=== PATIENT | male | born 1960 | race Caucasian/White ===

== ENCOUNTER 2017-09-12 21:35 | Inpatient (IN) | payer OTHER ==
[2017-09-12] MEDS ORDERED: NALOXONE 0.4 MG/ML 1 ML VIAL IV PRN (22:02)
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
[2017-09-12] MEDS: SODIUM CHLORIDE 0.9% 1,000 ML IV SCH (22:21)
[2017-09-12 22:44] LABS: Albumin 2.7 g/dL (3.5-5.0); Phosphorus 6.6 mg/dL (2.5-4.5); Potassium 5.3 mmol/L (3.5-5.1); Total Bilirubin 0.3 mg/dL (0.2-1.3); Total Protein 5.2 g/dL (6.3-8.2)
[2017-09-12 22:49] LABS: INR 1.1 (<1.2); Prothrombin Time 10.7 sec (9.0-12.0)
[2017-09-12 22:51] LABS: Basophils % (A) 0 %; Eosinophils % (A) 0 %; HCT 31.6 % (39.0-53.0); HGB 10.3 gm/dL (13.0-17.5); Lymphocytes # (A) 0.7 k/uL (1.0-4.8); Lymphocytes % (A) 3 %; MCH 28.4 pg (25.0-35.0); MCHC 32.5 g/dL (31.0-37.0); MCV 87.2 fL (80.0-100.0); Mean Platelet Volume 6.7; Monocytes % (A) 4 %; Neutrophils # (A) 20.5 k/uL (1.3-7.7); Neutrophils % (A) 91 %; Platelet Count 530 k/uL (150-450); RBC 3.62 m/uL (4.30-5.90); RDW 14.2 % (11.5-15.5); WBC 22.4 k/uL (3.8-10.6)
[2017-09-12] MEDS ORDERED: MAG HYDROX/AL HYDROX/SIMETH 30 ML CUP PO STA (22:59)
[2017-09-12 23:49] LABS: Glucose,Whole Blood 264 mg/dL (75-99)
[2017-09-13 03:36] LABS: Glucose,Whole Blood 246 mg/dL (75-99)
[2017-09-13] MEDS ORDERED: traMADol 50 MG TAB PO STA ×2 (04:11→20:01)
[2017-09-13 04:27] LABS: Albumin 2.4 g/dL (3.5-5.0); Calcium 7.6 mg/dL (8.4-10.2); Phosphorus 6.5 mg/dL (2.5-4.5); Potassium 4.7 mmol/L (3.5-5.1); Total Bilirubin 0.1 mg/dL (0.2-1.3); Total Protein 4.8 g/dL (6.3-8.2)
[2017-09-13 04:28] LABS: Basophils % (A) 0 %; Eosinophils % (A) 0 %; HCT 29.3 % (39.0-53.0); HGB 9.5 gm/dL (13.0-17.5); Lymphocytes # (A) 0.7 k/uL (1.0-4.8); Lymphocytes % (A) 4 %; MCHC 32.3 g/dL (31.0-37.0); MCV 86.7 fL (80.0-100.0); Mean Platelet Volume 7.1; Monocytes # (A) 0.8 k/uL (0-1.0); Monocytes % (A) 5 %; Neutrophils # (A) 14.9 k/uL (1.3-7.7); Neutrophils % (A) 90 %; Platelet Count 519 k/uL (150-450); RBC 3.37 m/uL (4.30-5.90); RDW 13.9 % (11.5-15.5); WBC 16.5 k/uL (3.8-10.6)
[2017-09-13] MEDS: INSULIN ASPART 100 UNIT/ML 1 ML 10 ML VIAL SQ SCH ×4 (04:48→21:36)
[2017-09-13] MEDS: LIDOCAINE 5% PATCH TOPICAL SCH (04:53)
[2017-09-13] MEDS: SODIUM CHLORIDE 0.9% 1,000 ML IV SCH (06:32)
--- NOTE | 2017-09-13 09:41 | US ---
EXAMINATION TYPE: US renals and bladder DATE OF EXAM: 09/13/2017 COMPARISON: NONE CLINICAL HISTORY: Elevated BUN/creatinine. Renal failure EXAM MEASUREMENTS: Right Kidney: 10.7 x 5.1 x 5.3 cm Left Kidney: 11.7 x 5.2 x 5.3 cm Right Kidney: no hydronephrosis or masses seen Left Kidney: no hydronephrosis or masses seen Bladder: wnl Bilateral Jets seen: no There is no evidence for hydronephrosis at this point in time. No nephrolithiasis is seen. No jhui s are identified. The urinary bladder is anechoic. Bilateral ureteral jets are not seen. IMPRESSION: No hydronephrosis is evident bilaterally.
[2017-09-13] MEDS ORDERED: FUROSEMIDE 10 MG/ML 10 ML VIAL IV STA (09:48)
--- NOTE | 2017-09-13 09:49 | P.NPCON ---
History of Present Illness - Reason for Consult acute renal failure - History of Present Illness Reason for consultation: Acute kidney injury History of present illness: Patient is a 57-year-old male seen in renal consultation for acute kidney injury. Unclear as to what his baseline renal function is. Patient has not seen a physician in over 10 years. The only medication he takes at home his insulin and states he's been a diabetic since the age of 38. Patient presented to Dr. lino [facility] with generalized weakness. Patient states he's been having an upper respiratory infection with a nonproductive cough for quite some time now. His oral intake for the last week has been quite poor. His urine output also decreased. He denies hematuria or dysuria. He does admit to taking 1600 mg of Motrin daily for the last 2 days. He denies taking diuretics. His creatinine was 8.4 on admission and is 8.5 today. He is currently maintained on normal saline at 75 mL an hour. He denies any prior history of kidney disease. Renal ultrasound reveals normal sized kidneys without any evidence of hydronephrosis. Urine output overnight was 250. Patient works in the [employer] and states he's been working and very humid weather conditions. Vital signs are stable. General: The patient appeared well nourished and normally developed. HEENT: Head exam is unremarkable. Neck is without jugular venous distension. LUNGS: Lungs are clear to auscultation and percussion. Breath sounds decreased. HEART: Rate and Rhythm are regular. First and second heart sounds normal. No murmurs, rubs or gallops. ABDOMEN: Abdominal exam reveals normal bowel sounds. Non-tender and non- distended. No evidence of peritonitis. EXTREMITITES: No clubbing, cyanosis, or edema. Past Medical History Past Medical History: Diabetes Mellitus, Renal Disease History of Any Multi-Drug Resistant Organisms: None Reported Past Surgical History: No Surgical Hx Reported Past Psychological History: No Psychological Hx Reported Smoking Status: Former smoker Past Alcohol Use History: None Reported Past Drug Use History: None Reported Medications and Allergies Home Medications Medication Instructions Recorded Confirmed Type Insulin NPH/Reg Insulin 70/30 See Protocol SQ AC-TID 09/12/17 09/12/17 History [humuLIN 70/30 VIAL] Allergies Allergy/AdvReac Type Severity Reaction Status Date / Time No Known Allergies Allergy Verified 09/12/17 21:55 Physical Exam Vitals: Vital Signs Temp Pulse Resp BP Pulse Ox 09/13/17 04:00 20 09/13/17 00:00 20 09/12/17 22:57 100 20 142/77 99 09/12/17 21:37 98.8 F 110 H 22 157/88 98 Intake and Output 09/12/17 09/13/17 09/13/17 22:59 06:59 14:59 Intake Total 525 Balance 525 Intake: Intake, IV Titration 525 Amount Sodium Chloride 0.9% 1, 525 000 ml @ 75 mls/hr IV . [id number] [facility] Rx#:[id number] Other: Voiding Method Urinal Weight 77.111 kg 78.2 kg Results - Lab Results Most recent lab results Calcium 7.6 mg/dL (8.4-10.2) L 09/13/17 03:55 Phosphorus 6.5 mg/dL (2.5-4.5) H 09/13/17 03:55 Magnesium 2.0 mg/dL (1.6-2.3) 09/13/17 03:55 09/13/17 03:55 09/13/17 03:55 Assessment and Plan Plan: Assessment: 1. Acute kidney injury secondary to ATN secondary to nonsteroidals and intravascular volume depletion. Creatinine 8.4 on admission and is 8.5 today. Unknown baseline creatinine. Renal ultrasound benign. 2. Insulin-dependent diabetes mellitus. 3. Mild hyperkalemia secondary to acute kidney injury and metabolic acidosis. Hyperglycemia contributive factor as well. Improved. 4. Metabolic acidosis secondary to acute kidney injury. 5. Hyperphosphatemia secondary to acute kidney injury. 6. Anemia. Rule out iron deficiency. Plan: Maintain normal saline at 75 mL an hour. Check urinalysis. Add PhosLo 1 tablet 3 times daily with meals. Add oral sodium bicarbonate 1300 mg twice daily. Check iron studies. Avoid nephrotoxic agents and hypotensive episodes. Lasix 80 mg IV once today. Strict I's and os. Follow-up echocardiogram cells. If no improvement in renal function in the next 24-48 hours, we'll need to initiate renal replacement therapy. Thank you for the consultation. I will continue to follow the patient with you during his hospital stay.
--- NOTE | 2017-09-13 10:00 | ECHOF ---
Referral Reason:new heart failure MEASUREMENTS -------- HEIGHT: 170.2 cm WEIGHT: 78.0 kg BP: 142/77 IVSd: 1.5 cm (0.6 - 1.1) LVIDd: 4.0 cm (3.9 - 5.3) LVPWd: 1.5 cm (0.6 - 1.1) IVSs: 1.9 cm LVIDs: 2.0 cm LVPWs: 1.9 cm LAESV Index (A-L): 36.10 ml/m Ao Diam: 3.0 cm (2.0 - 3.7) AV Cusp: 1.9 cm (1.5 - 2.6) LA Diam: 3.8 cm (2.7 - 3.8) MV EXCURSION: 11.453 mm (> 18.000) MV EF SLOPE: 93 mm/s (70 - 150) EPSS: 0.8 cm MV E Mychal: 1.51 m/s MV DecT: 170 ms MV A Mychal: 0.47 m/s MV E/A Ratio: 3.22 RAP: 5.00 mmHg RVSP: 54.93 mmHg FINDINGS -------- Sinus rhythm. This was a technically good study. The left ventricular size is normal. There is moderate concentric left ventricular hypertrophy. O verall left ventricular systolic function is low-normal with, an EF between 50 - 55 %. The right ventricle is normal in size and function. LA is moderately dilated 34-39 ml/m2 The right atrium is normal in size. Aortic valve is trileaflet and is mildly thickened. The mitral valve leaflets are mildly thickened. [id number] mitral regurgitation is present. Mild tricuspid regurgitation present. There is moderate pulmonary hypertension. The right ventric ular systolic pressure, as measured by Doppler, is 54.93mmHg. Pulmonic valve appears structurally normal. The aortic root size is normal. Normal inferior vena cava with normal inspiratory collapse consistent with estimated right atrial pre ssure of 5 mmHg. The pericardium is normal. CONCLUSIONS -------- 1. Sinus rhythm. 2. This was a technically good study. 3. The left ventricular size is normal. 4. There is moderate concentric left ventricular hypertrophy. 5. Overall left ventricular systolic function is low-normal with, an EF between 50 - 55 %. 6. The right ventricle is normal in size and function. 7. LA is moderately dilated 34-39 ml/m2 8. The right atrium is normal in size. 9. Aortic valve is trileaflet and is mildly thickened. 10. The mitral valve leaflets are mildly thickened. 11. Noer-lo-fphdggjg mitral regurgitation is present. 12. Mild tricuspid regurgitation present. 13. There is moderate pulmonary hypertension. 14. The right ventricular systolic pressure, as measured by Doppler, is 54.93mmHg. 15. Pulmonic valve appears structurally normal. 16. The aortic root size is normal. 17. Normal inferior vena cava with normal inspiratory collapse consistent with estimated right atrial pressure of 5 mmHg. 18. The pericardium is normal. SENIOR QUALITY ANALYST: Louise Toledo RDCS
[2017-09-13 11:29] LABS: Glucose,Whole Blood 113 mg/dL (75-99)
[2017-09-13] MEDS: CALCIUM ACETATE 667 MG CAP PO SCH ×2 (11:53→16:42)
[2017-09-13] MEDS: SODIUM BICARBONATE TAB 650 MG TAB PO SCH ×2 (11:53→20:11)
[2017-09-13] MEDS: ACETAMINOPHEN TAB 325 MG TAB PO PRN ×2 (12:28→18:59)
--- NOTE | 2017-09-13 14:35 | P.HPIM ---
History of Present Illness 57-year-old gentleman came with comments of generalized weakness tiredness nonproductive cough has been going on for about a week much worse last couple days. Urinating for last 2 days. Patient is found to have highly elevated BUN and creatinine because of which patient was transferred from [facility] to here patient is creatinine is around 8 I do not have any previous labs available. Patient is diabetic noncomplainer diet recommendations. Patient does work in hot sun exposed to heat doesn't take any diuretics. Initially he was told patient has heart failure although patient is not on any clinical signs or symptoms of heart failure patient had an echo cardiac exam which showed normal ejection fraction patient doesn't have any elevated JVD. No valvular abnormalities. Patient had highly elevated BNP which is a nonspecific test the other significant complaints patient had are epigastric abdominal discomfort and burning sensation due to gastritis, he believes. Patient has minimally elevated troponin without any significant EKG changes secondary to renal failure. Because of which I'm not starting him on heparin. I do not have any imaging available at this time but the chest x-ray from outside hospital was read as right lower lobe pneumonia patient does have crackles on lung exam denied any fever does have leukocytosis patient will be continued on Rocephin until we get a repeat chest x-ray here untill I can look at the images. Patient is also company of shortness of breath which can be explained by uremia. Review of Systems REVIEW OF SYSTEMS: CONSTITUTIONAL: As mentioned in HPI HEENT: No recent visual problems or hearing problems. Denied any sore throat. CARDIOVASCULAR: No chest pain, orthopnea, PND, no palpitations, no syncope. PULMONARY: no hemoptysis. GASTROINTESTINAL: No diarrhea, no nausea, no vomiting, . Normoactive bowel sounds. NEUROLOGICAL: No headaches, no weakness, no numbness. HEMATOLOGICAL: Denies any bleeding or petechiae. GENITOURINARY: Denies any burning micturition, frequency, or urgency. MUSCULOSKELETAL/RHEUMATOLOGICAL: Denies any joint pain, swelling, or any muscle pain. ENDOCRINE: Denies any polyuria or polydipsia. The rest of the 14-point review of systems is negative. Past Medical History Past Medical History: Diabetes Mellitus, Renal Disease History of Any Multi-Drug Resistant Organisms: None Reported Past Surgical History: No Surgical Hx Reported Past Psychological History: No Psychological Hx Reported Smoking Status: Former smoker Past Alcohol Use History: None Reported Past Drug Use History: None Reported Medications and Allergies Home Medications Medication Instructions Recorded Confirmed Type Insulin NPH/Reg Insulin 70/30 See Protocol SQ AC-TID 09/12/17 09/12/17 History [humuLIN 70/30 VIAL] Allergies Allergy/AdvReac Type Severity Reaction Status Date / Time No Known Allergies Allergy Verified 09/12/17 21:55 Physical Exam Vitals: Vital Signs Temp Pulse Pulse Resp BP BP Pulse Ox 09/13/17 12:00 92 18 147/72 99 09/13/17 08:00 97.1 F L 85 18 126/73 99 09/13/17 04:00 20 09/13/17 00:00 20 09/12/17 22:57 100 20 142/77 99 09/12/17 21:37 98.8 F 110 H 22 157/88 98 Intake and Output 09/12/17 09/13/17 09/13/17 22:59 06:59 14:59 Intake Total 525 Output Total 200 Balance 525 -200 Intake: Intake, IV Titration 525 Amount Sodium Chloride 0.9% 1, 525 000 ml @ 75 mls/hr IV . [id number] [facility] Rx#:[id number] Output: Urine 200 Other: Voiding Method Urinal Urinal # Voids 1 Weight 77.111 kg 78.2 kg PHYSICAL EXAMINATION: GENERAL: The patient is alert and oriented x3, not in any acute distress. Well developed, well nourished. HEENT: Pupils are round and equally reacting to light. EOMI. No scleral icterus. No conjunctival pallor. Normocephalic, atraumatic. No pharyngeal erythema. No thyromegaly. CARDIOVASCULAR: S1 and S2 present. No murmurs, rubs, or gallops. PULMONARY: Good air entry into bilateral lung calles minimal right lower lobe crackles are appreciated ABDOMEN: Soft, nontender, nondistended, normoactive bowel sounds. No palpable organomegaly. MUSCULOSKELETAL: No joint swelling or deformity. EXTREMITIES: No cyanosis, clubbing, or pedal edema. NEUROLOGICAL: Gross neurological examination did not reveal any focal deficits. SKIN: No rashes. Results CBC & Chem 7: 09/13/17 03:55 09/13/17 03:55 Labs: Abnormal Lab Results - Last 24 Hours (Table) 09/12/17 09/12/17 09/12/17 Range/Units 21:54 21:54 21:54 WBC 22.4 H (3.8-10.6) k/uL RBC 3.62 L (4.30-5.90) m/uL Hgb 10.3 L (13.0-17.5) gm/dL Hct 31.6 L (39.0-53.0) % Plt Count 530 H (150-450) k/uL Neutrophils # 20.5 H (1.3-7.7) k/uL Lymphocytes # 0.7 L (1.0-4.8) k/uL Sodium 135 L (137-145) mmol/L Potassium 5.3 H (3.5-5.1) mmol/L Carbon Dioxide 17 L (22-30) mmol/L BUN 79 H (9-20) mg/dL Creatinine 8.41 H* (0.66-1.25) mg/dL Glucose 245 H (74-99) mg/dL POC Glucose (mg/dL) (75-99) mg/dL Calcium 8.0 L (8.4-10.2) mg/dL Phosphorus 6.6 H (2.5-4.5) mg/dL Total Bilirubin (0.2-1.3) mg/dL AST (17-59) U/L Troponin I 0.062 H* (0.000-0.034) ng/mL Total Protein 5.2 L (6.3-8.2) g/dL Albumin 2.7 L (3.5-5.0) g/dL 09/12/17 09/13/17 09/13/17 Range/Units 23:48 03:34 03:55 WBC 16.5 H (3.8-10.6) k/uL RBC 3.37 L (4.30-5.90) m/uL Hgb 9.5 L (13.0-17.5) gm/dL Hct 29.3 L (39.0-53.0) % Plt Count 519 H (150-450) k/uL Neutrophils # 14.9 H (1.3-7.7) k/uL Lymphocytes # 0.7 L (1.0-4.8) k/uL Sodium (137-145) mmol/L Potassium (3.5-5.1) mmol/L Carbon Dioxide (22-30) mmol/L BUN (9-20) mg/dL Creatinine (0.66-1.25) mg/dL Glucose (74-99) mg/dL POC Glucose (mg/dL) 264 H 246 H (75-99) mg/dL Calcium (8.4-10.2) mg/dL Phosphorus (2.5-4.5) mg/dL Total Bilirubin (0.2-1.3) mg/dL AST (17-59) U/L Troponin I (0.000-0.034) ng/mL Total Protein (6.3-8.2) g/dL Albumin (3.5-5.0) g/dL 09/13/17 09/13/17 09/13/17 Range/Units 03:55 03:55 10:48 WBC (3.8-10.6) k/uL RBC (4.30-5.90) m/uL Hgb (13.0-17.5) gm/dL Hct (39.0-53.0) % Plt Count (150-450) k/uL Neutrophils # (1.3-7.7) k/uL Lymphocytes # (1.0-4.8) k/uL Sodium 134 L (137-145) mmol/L Potassium (3.5-5.1) mmol/L Carbon Dioxide 17 L (22-30) mmol/L BUN 78 H (9-20) mg/dL Creatinine 8.50 H* (0.66-1.25) mg/dL Glucose 248 H (74-99) mg/dL POC Glucose (mg/dL) (75-99) mg/dL Calcium 7.6 L (8.4-10.2) mg/dL Phosphorus 6.5 H (2.5-4.5) mg/dL Total Bilirubin 0.1 L (0.2-1.3) mg/dL AST 15 L (17-59) U/L Troponin I 0.060 H* 0.059 H* (0.000-0.034) ng/mL Total Protein 4.8 L (6.3-8.2) g/dL Albumin 2.4 L (3.5-5.0) g/dL 09/13/17 Range/Units 11:27 WBC (3.8-10.6) k/uL RBC (4.30-5.90) m/uL Hgb (13.0-17.5) gm/dL Hct (39.0-53.0) % Plt Count (150-450) k/uL Neutrophils # (1.3-7.7) k/uL Lymphocytes # (1.0-4.8) k/uL Sodium (137-145) mmol/L Potassium (3.5-5.1) mmol/L Carbon Dioxide (22-30) mmol/L BUN (9-20) mg/dL Creatinine (0.66-1.25) mg/dL Glucose (74-99) mg/dL POC Glucose (mg/dL) 113 H (75-99) mg/dL Calcium (8.4-10.2) mg/dL Phosphorus (2.5-4.5) mg/dL Total Bilirubin (0.2-1.3) mg/dL AST (17-59) U/L Troponin I (0.000-0.034) ng/mL Total Protein (6.3-8.2) g/dL Albumin (3.5-5.0) g/dL Assessment and Plan Plan: -Renal failure mostly acute renal failure chronic kidney disease cannot be ruled out. Patient most probably has multifactorial renal failure secondary to nonoliguric acute tubular necrosis secondary to nonsteroidal anti-inflammatory is with intravascular volume depletion and prerenal azotemia. Chronic kidney disease cannot be completely ruled out ultrasound of the kidneys essentially within normal limits. Patient was started on oral sodium bicarbonate IV fluids will recheck kidney function tomorrow. Echocardiogram showed normal ejection fraction. -Elevated troponins minimal elevation secondary to renal failure. -Metabolic acidosis anion gap secondary to uremia -Nausea epigastric abdominal discomfort can be secondary to uremia or gastritis patient was started on Pepcid 9 anemia: We'll obtain serum ferritin levels to rule out iron deficiency. -Type 2 diabetes mellitus: Will use sliding scale insulin for now-noncompliance with dietary and medication conditions
--- NOTE | 2017-09-13 15:22 | XR ---
EXAMINATION TYPE: XR chest 2V DATE OF EXAM: 09/13/2017 COMPARISON: Outside chest x-ray from yesterday. HISTORY: Abnormal chest x-ray, rule out pneumonia. TECHNIQUE: Frontal and lateral views of the chest are obtained. FINDINGS: The cardiac silhouette size is stable and upper limits of normal. There is persistent smal l to tiny left pleural effusion. There is persistent right basilar opacity felt to reflect infiltrate and/or atelectasis with possible small right pleural effusion is more prominent from prior study wit h increased consolidation opacification involving superior aspect right lower lobe best appreciated o n lateral view . There is silhouetting of right hemidiaphragm redemonstrated. Upper lungs remain adama r without pneumothorax. The osseous structures are intact. IMPRESSION: Worsening right basilar opacity likely reflects worsening infiltrate. Stable small to ti ny left pleural effusion. No new infiltrate is evident.
[2017-09-13 16:33] LABS: Iron Saturation 7.91 (15.00-50.00)
[2017-09-13] MEDS: FAMOTIDINE 20 MG TAB PO SCH (16:42)
[2017-09-13] MEDS: cefTRIAXone IN SWFI 1,000 MG/10 ML SYRINGE IVP SCH (16:42)
[2017-09-13 16:53] LABS: Glucose,Whole Blood 216 mg/dL (75-99)
[2017-09-13 21:31] LABS: Glucose,Whole Blood 131 mg/dL (75-99)
[2017-09-13 22:00] LABS: Appearance,Urine Cloudy (Clear); Bilirubin,Urine Negative (Negative); Blood,Urine Small (Negative); Budding Yeast,Urine Occasional /hpf; Color,Urine Light Yellow; Glucose,Urine (UA) 2+ (Negative); Ketones,Urine Negative (Negative); Leukocyte Esterase,Urine Negative (Negative); Mucus,Urine Rare /hpf; Nitrite,Urine Negative (Negative); Protein,Urine 3+ (Negative); RBC,Urine 1 /hpf (0-5); Squamous Epithelial Cell,Urine <1 /hpf (0-4); Urobilinogen,Urine <2.0 mg/dL (<2.0); WBC,Urine 10 /hpf (0-5)
--- NOTE | 2017-09-14 00:39 | CONS ---
CONSULTATION DATE OF SERVICE: 09/13/2017 Reason for the consultation is abnormal cardiac enzymes. HISTORY OF PRESENT ILLNESS: This is a pleasant 57-year-old gentleman who is diabetic for the last 20 years, was transferred from [facility] to [facility] after he was diagnosed with acute renal failure of unknown etiology at this point. The patient symptoms started about a week ago. Before a week, he was in his usual state of health. About a week ago, he started experiencing symptoms of feeling tired, fatigued, has no energy. Beside that, he started experiencing symptoms of exertional dyspnea, as well as orthopnea. No paroxysmal nocturnal dyspnea. Beside that, he was experiencing some symptoms of chest pain and chest discomfort described as a tightness across the chest. No radiation to the neck or arm or shoulders. No dizziness or lightheadedness and no syncope. No change in his weight. As a matter of fact according to him and his , his appetite has been very low lately and he was only drinking water, but not eating well. At [facility], the patient was found to have severely elevated creatinine and it was about 8 and we do not have any baseline creatinine on him before. The patient was diagnosed with acute renal failure and he was transferred to [facility]. The chest x-ray showed findings consistent with possible new pneumonia. The WBC was 16.5. The hemoglobin was 9.5. Sodium was 134. Potassium was 4.7. Creatinine was 8.50. Glucose was 248. Troponin was 0.060 and 0.059. There is no EKG available at this point of time and will obtain 12-lead EKG. The patient was seen and evaluated by the orientation and mobility instructor and the plan at this point to treat the patient conservatively and challenge him with diuretics, but if he did not respond he might need to have dialysis. PAST MEDICAL HISTORY: Diabetes. No documented history of hypertension or dyslipidemia. SOCIAL HISTORY: The patient does not smoke or drink alcohol. FAMILY HISTORY: Not relevant for premature coronary artery disease in first-degree relatives. CURRENT MEDICATIONS: 1. Acetaminophen 650 mg q.6 hours p.r.n. 2. Ceftriaxone 1000 IV daily. 3. Pepcid 20 mg daily. 4. Insulin. 5. Sodium bicarb 13 mg p.o. b.i.d. 6. Lidocaine patch topical daily. PHYSICAL EXAMINATION: GENERAL APPEARANCE: The patient does not look in any pain or distress. Vitals showed a temp of 98.8, heart rate 94, respiratory rate 18, blood pressure is 147/72 mmHg, saturation 99% on nasal cannula 2 L. Cardiovascular examination shows regular rate and rhythm with normal S1 and S2. Respiratory examination showed diminished breathing sounds in both bases of the lung. EXTREMITY EXAMINATION: No pedal edema was noted. DIAGNOSTIC WORKUP: The blood work was described above. The chest x-ray was also described above next. The EKG is in process to be performed. ASSESSMENT: 1. Acute renal failure. The etiology is unknown at this point. 2. Mildly abnormal cardiac enzymes in the absence of any active chest pain or chest discomfort. PLAN: 1. The abnormal cardiac enzymes is likely secondary to the acute renal failure. Severe underlying coronary artery disease needs to be ruled out probably as an outpatient with a stress test once the creatinine normalized or come to baseline. 2. At this point, we will consider a conservative medical approach, which includes aspirin, as well as beta margarita. 3. Will obtain an echocardiogram with Doppler to evaluate the left ventricular systolic function. 4. The patient does not seems to be in overt congestive heart failure at this point. 5. We will continue following up with him. Thank you for allowing us to participate in his care. MMODL / IJN: [id number] /
[2017-09-14] MEDS: SODIUM CHLORIDE 0.9% 1,000 ML IV SCH ×3 (01:51→17:35)
[2017-09-14 06:56] LABS: Glucose,Whole Blood 91 mg/dL (75-99)
[2017-09-14] MEDS: INSULIN ASPART 100 UNIT/ML 1 ML 10 ML VIAL SQ SCH ×4 (07:40→21:35)
[2017-09-14] MEDS: SODIUM BICARBONATE TAB 650 MG TAB PO SCH ×2 (07:58→21:44)
[2017-09-14] MEDS: CALCIUM ACETATE 667 MG CAP PO SCH ×3 (08:00→17:35)
[2017-09-14] MEDS: FAMOTIDINE 20 MG TAB PO SCH (08:01)
[2017-09-14] MEDS: LIDOCAINE 5% PATCH TOPICAL SCH (08:01)
[2017-09-14] MEDS: cefTRIAXone IN SWFI 1,000 MG/10 ML SYRINGE IVP SCH (08:05)
[2017-09-14 08:26] LABS: Albumin 2.4 g/dL (3.5-5.0); Calcium 7.5 mg/dL (8.4-10.2); Magnesium 2.2 mg/dL (1.6-2.3); Potassium 5.2 mmol/L (3.5-5.1); Total Bilirubin 0.2 mg/dL (0.2-1.3); Total Protein 4.8 g/dL (6.3-8.2)
[2017-09-14 10:05] LABS: HCT 29.1 % (39.0-53.0); HGB 9.4 gm/dL (13.0-17.5); Hypochromasia Slight; MCH 28.9 pg (25.0-35.0); MCHC 32.4 g/dL (31.0-37.0); MCV 89.3 fL (80.0-100.0); Mean Platelet Volume 7.8; Platelet Count 553 k/uL (150-450); RBC 3.26 m/uL (4.30-5.90); RDW 14.4 % (11.5-15.5)
--- NOTE | 2017-09-14 10:25 | P.PN ---
Subjective 57-year-old pleasant female admitted for the acute renal failure creatinine remains stable patient appears to have right lower lobe pneumonia repeat chest x -ray did show clear-cut infiltrate patient will remain on ceftriaxone for now and be is to have her come in today quite pneumonia. I will increase fluid rate 1 25 mL per hour patient is A getting oral bicarbonate. Patient is feeling much better today. Constitutional: Denied any fatigue denied any fever. Cardio vascular: denied any chest pain, palpitations Gastrointestinal denied any nausea vomiting Pulmonary: Denied any shortness of breath cough Neurologic denied any new focal deficits Objective - Vital Signs Vital signs: Vital Signs Temp 98.2 F 09/14/17 06:25 Pulse 94 09/14/17 06:25 Resp 16 09/14/17 06:25 BP 173/86 09/14/17 06:25 Pulse Ox 93 L 09/14/17 06:25 Intake & Output 09/13/17 09/14/17 09/14/17 18:59 06:59 18:59 Intake Total 240 1940 Output Total 200 375 Balance 40 1565 Intake: Intake, IV Titration 1700 Amount Sodium Chloride 0.9% 1, 1700 000 ml @ 75 mls/hr IV . [id number] [facility] Rx#:[id number] Oral 240 240 Output: Urine 200 375 Other: Voiding Method Urinal Toilet # Voids 1 1 - Exam PHYSICAL EXAMINATION: GENERAL: The patient is alert and oriented x3, not in any acute distress. Well developed, well nourished. HEENT: Pupils are round and equally reacting to light. EOMI. No scleral icterus. No conjunctival pallor. Normocephalic, atraumatic. No pharyngeal erythema. No thyromegaly. CARDIOVASCULAR: S1 and S2 present. No murmurs, rubs, or gallops. PULMONARY: Good air entry into bilateral lung calles minimal right lower lobe crackles are appreciated ABDOMEN: Soft, nontender, nondistended, normoactive bowel sounds. No palpable organomegaly. MUSCULOSKELETAL: No joint swelling or deformity. EXTREMITIES: No cyanosis, clubbing, or pedal edema. NEUROLOGICAL: Gross neurological examination did not reveal any focal deficits. SKIN: No rashes. - Labs CBC & Chem 7: 09/14/17 07:31 09/14/17 07:31 Labs: Abnormal Lab Results - Last 24 Hours (Table) 0709/13/17 09/13/17 Range/Units 21:54 10:48 10:48 WBC (3.8-10.6) k/uL RBC (4.30-5.90) m/uL Hgb (13.0-17.5) gm/dL Hct (39.0-53.0) % Plt Count (150-450) k/uL Potassium (3.5-5.1) mmol/L Carbon Dioxide (22-30) mmol/L BUN (9-20) mg/dL Creatinine (0.66-1.25) mg/dL POC Glucose (mg/dL) (75-99) mg/dL Hemoglobin A1c 7.0 H (4.0-6.0) % Calcium (8.4-10.2) mg/dL Iron 11 L (65-175) ug/dL TIBC 139 L (228-460) ug/dL Iron Saturation 7.91 L (15.00-50.00) Ferritin 935.0 H (22.0-322.0) ng/mL Alkaline Phosphatase (38-126) U/L Troponin I 0.059 H* (0.000-0.034) ng/mL Total Protein (6.3-8.2) g/dL Albumin (3.5-5.0) g/dL Urine Protein (Negative) Urine Glucose (UA) (Negative) Urine Blood (Negative) Urine WBC (0-5) /hpf Urine Mucus (None) /hpf Urine Yeast (Budding) (None) /hpf 09/13/17 09/13/17 09/13/17 Range/Units 11:27 16:51 21:30 WBC (3.8-10.6) k/uL RBC (4.30-5.90) m/uL Hgb (13.0-17.5) gm/dL Hct (39.0-53.0) % Plt Count (150-450) k/uL Potassium (3.5-5.1) mmol/L Carbon Dioxide (22-30) mmol/L BUN (9-20) mg/dL Creatinine (0.66-1.25) mg/dL POC Glucose (mg/dL) 113 H 216 H 131 H (75-99) mg/dL Hemoglobin A1c (4.0-6.0) % Calcium (8.4-10.2) mg/dL Iron (65-175) ug/dL TIBC (228-460) ug/dL Iron Saturation (15.00-50.00) Ferritin (22.0-322.0) ng/mL Alkaline Phosphatase (38-126) U/L Troponin I (0.000-0.034) ng/mL Total Protein (6.3-8.2) g/dL Albumin (3.5-5.0) g/dL Urine Protein (Negative) Urine Glucose (UA) (Negative) Urine Blood (Negative) Urine WBC (0-5) /hpf Urine Mucus (None) /hpf Urine Yeast (Budding) (None) /hpf 09/13/17 09/14/17 09/14/17 Range/Units 21:40 07:31 07:31 WBC 17.0 H (3.8-10.6) k/uL RBC 3.26 L (4.30-5.90) m/uL Hgb 9.4 L (13.0-17.5) gm/dL Hct 29.1 L (39.0-53.0) % Plt Count 553 H (150-450) k/uL Potassium 5.2 H (3.5-5.1) mmol/L Carbon Dioxide 18 L (22-30) mmol/L BUN 90 H* (9-20) mg/dL Creatinine 8.33 H* (0.66-1.25) mg/dL POC Glucose (mg/dL) (75-99) mg/dL Hemoglobin A1c (4.0-6.0) % Calcium 7.5 L (8.4-10.2) mg/dL Iron (65-175) ug/dL TIBC (228-460) ug/dL Iron Saturation (15.00-50.00) Ferritin (22.0-322.0) ng/mL Alkaline Phosphatase 181 H (38-126) U/L Troponin I (0.000-0.034) ng/mL Total Protein 4.8 L (6.3-8.2) g/dL Albumin 2.4 L (3.5-5.0) g/dL Urine Protein 3+ H (Negative) Urine Glucose (UA) 2+ H (Negative) Urine Blood Small H (Negative) Urine WBC 10 H (0-5) /hpf Urine Mucus Rare H (None) /hpf Urine Yeast (Budding) Occasional H (None) /hpf Assessment and Plan Plan: -Renal failure mostly acute renal failure chronic kidney disease cannot be ruled out. Patient most probably has multifactorial renal failure secondary to nonoliguric acute tubular necrosis secondary to nonsteroidal anti-inflammatory is with intravascular volume depletion and prerenal azotemia. Chronic kidney disease cannot be completely ruled out ultrasound of the kidneys essentially within normal limits. Patient was started on oral sodium bicarbonate IV fluids will recheck kidney function tomorrow. Echocardiogram showed normal ejection fraction. -Come in today quite pneumonia right lower lobe: Patient is on Rocephin at this time which will be continued and patient is feeling much better today -Elevated troponins minimal elevation secondary to renal failure. -Metabolic acidosis anion gap secondary to uremia -Nausea epigastric abdominal discomfort can be secondary to uremia or gastritis patient was started on Pepcid 9 anemia: Probably anemia of chronic kidney disease ferritin is actually high -Type 2 diabetes mellitus: Will use sliding scale insulin for now-noncompliance with dietary and medication conditions
--- NOTE | 2017-09-14 10:53 | P.PN ---
Subjective Patient is seen in follow-up for acute kidney injury. Unknown baseline renal function as he hasn't seen a physician in over 10 years. No improvement in renal function with creatinine 8.3 today. Overall the patient's feeling better. Denies nausea or vomiting. Admits to good urine output. Vital signs are stable. General: The patient appeared well nourished and normally developed. HEENT: Head exam is unremarkable. Neck is without jugular venous distension. LUNGS: Lungs are clear to auscultation and percussion. Breath sounds decreased. HEART: Rate and Rhythm are regular. First and second heart sounds normal. No murmurs, rubs or gallops. ABDOMEN: Abdominal exam reveals normal bowel sounds. Non-tender and non- distended. No evidence of peritonitis. EXTREMITITES: No clubbing, cyanosis, or edema. Objective - Vital Signs Vital signs: Vital Signs Temp 98.2 F 09/14/17 06:25 Pulse 94 09/14/17 06:25 Resp 16 09/14/17 06:25 BP 173/86 09/14/17 06:25 Pulse Ox 93 L 09/14/17 06:25 Intake & Output 09/13/17 09/14/17 09/14/17 18:59 06:59 18:59 Intake Total 240 1940 Output Total 200 375 Balance 40 1565 Intake: Intake, IV Titration 1700 Amount Sodium Chloride 0.9% 1, 1700 000 ml @ 75 mls/hr IV . [id number] [facility] Rx#:[id number] Oral 240 240 Output: Urine 200 375 Other: Voiding Method Urinal Toilet # Voids 1 1 - Labs CBC & Chem 7: 09/14/17 07:31 09/14/17 07:31 Labs: Abnormal Lab Results - Last 24 Hours (Table) 09/12/17 09/13/17 09/13/17 Range/Units 21:54 10:48 10:48 WBC (3.8-10.6) k/uL RBC (4.30-5.90) m/uL Hgb (13.0-17.5) gm/dL Hct (39.0-53.0) % Plt Count (150-450) k/uL Potassium (3.5-5.1) mmol/L Carbon Dioxide (22-30) mmol/L BUN (9-20) mg/dL Creatinine (0.66-1.25) mg/dL POC Glucose (mg/dL) (75-99) mg/dL Hemoglobin A1c 7.0 H (4.0-6.0) % Calcium (8.4-10.2) mg/dL Iron 11 L (65-175) ug/dL TIBC 139 L (228-460) ug/dL Iron Saturation 7.91 L (15.00-50.00) Ferritin 935.0 H (22.0-322.0) ng/mL Alkaline Phosphatase (38-126) U/L Troponin I 0.059 H* (0.000-0.034) ng/mL Total Protein (6.3-8.2) g/dL Albumin (3.5-5.0) g/dL Urine Protein (Negative) Urine Glucose (UA) (Negative) Urine Blood (Negative) Urine WBC (0-5) /hpf Urine Mucus (None) /hpf Urine Yeast (Budding) (None) /hpf 09/13/17 09/13/17 09/13/17 Range/Units 11:27 16:51 21:30 WBC (3.8-10.6) k/uL RBC (4.30-5.90) m/uL Hgb (13.0-17.5) gm/dL Hct (39.0-53.0) % Plt Count (150-450) k/uL Potassium (3.5-5.1) mmol/L Carbon Dioxide (22-30) mmol/L BUN (9-20) mg/dL Creatinine (0.66-1.25) mg/dL POC Glucose (mg/dL) 113 H 216 H 131 H (75-99) mg/dL Hemoglobin A1c (4.0-6.0) % Calcium (8.4-10.2) mg/dL Iron (65-175) ug/dL TIBC (228-460) ug/dL Iron Saturation (15.00-50.00) Ferritin (22.0-322.0) ng/mL Alkaline Phosphatase (38-126) U/L Troponin I (0.000-0.034) ng/mL Total Protein (6.3-8.2) g/dL Albumin (3.5-5.0) g/dL Urine Protein (Negative) Urine Glucose (UA) (Negative) Urine Blood (Negative) Urine WBC (0-5) /hpf Urine Mucus (None) /hpf Urine Yeast (Budding) (None) /hpf 09/13/17 09/14/17 09/14/17 Range/Units 21:40 07:31 07:31 WBC 17.0 H (3.8-10.6) k/uL RBC 3.26 L (4.30-5.90) m/uL Hgb 9.4 L (13.0-17.5) gm/dL Hct 29.1 L (39.0-53.0) % Plt Count 553 H (150-450) k/uL Potassium 5.2 H (3.5-5.1) mmol/L Carbon Dioxide 18 L (22-30) mmol/L BUN 90 H* (9-20) mg/dL Creatinine 8.33 H* (0.66-1.25) mg/dL POC Glucose (mg/dL) (75-99) mg/dL Hemoglobin A1c (4.0-6.0) % Calcium 7.5 L (8.4-10.2) mg/dL Iron (65-175) ug/dL TIBC (228-460) ug/dL Iron Saturation (15.00-50.00) Ferritin (22.0-322.0) ng/mL Alkaline Phosphatase 181 H (38-126) U/L Troponin I (0.000-0.034) ng/mL Total Protein 4.8 L (6.3-8.2) g/dL Albumin 2.4 L (3.5-5.0) g/dL Urine Protein 3+ H (Negative) Urine Glucose (UA) 2+ H (Negative) Urine Blood Small H (Negative) Urine WBC 10 H (0-5) /hpf Urine Mucus Rare H (None) /hpf Urine Yeast (Budding) Occasional H (None) /hpf Assessment and Plan Plan: Assessment: 1. Acute kidney injury secondary to ATN secondary to nonsteroidals and intravascular volume depletion. No improvement in renal function with creatinine staying above 8. Unknown baseline creatinine. Renal ultrasound benign. Urinalysis does reveal proteinuria which is likely secondary to underlying diabetes. Rule out GN. 2. Insulin-dependent diabetes mellitus. 3. Mild hyperkalemia secondary to acute kidney injury and metabolic acidosis. Hyperglycemia contributive factor as well. 4. Metabolic acidosis secondary to acute kidney injury maintained on oral sodium bicarbonate. 5. Hyperphosphatemia secondary to acute kidney injury. Maintained on PhosLo. 6. Anemia. Iron deficiency noted. Plan: Maintain normal saline at 125 mL an hour. Quantify proteinuria. Check serologies. Further set 125 mg IV daily for 3 days. First dose today. Avoid nephrotoxic agents and hypotensive episodes. Strict I's and os. If no improvement in renal function in the next 24-48 hours, will need to initiate renal replacement therapy. Will also require a kidney biopsy to assess the chronicity of his underlying kidney disease and for a definitive diagnosis.
[2017-09-14 11:26] LABS: Glucose,Whole Blood 111 mg/dL (75-99)
[2017-09-14] MEDS: SODIUM FERRIC GLUCONAT-SUCROSE 125 MG in SODIUM CHLORIDE 0.9% 100 ML IVPB SCH (11:26)
[2017-09-14] MEDS: ONDANSETRON 4 MG/2 ML VIAL IVP PRN ×2 (16:05→21:43)
[2017-09-14 16:23] LABS: Anti-DNA, DS unit <1.0 IU/mL; DNA Double-Stranded NEGATIVE (NEGATIVE)
[2017-09-14 16:38] LABS: Glucose,Whole Blood 113 mg/dL (75-99)
[2017-09-14 16:54] LABS: Protein, Total 4.9 g/dL (6.2-8.2)
[2017-09-14 20:09] LABS: Glucose,Whole Blood 111 mg/dL (75-99)
[2017-09-14] MEDS: traMADol 50 MG TAB PO PRN (21:43)
[2017-09-15] MEDS: SODIUM CHLORIDE 0.9% 1,000 ML IV SCH ×3 (05:23→17:24)
[2017-09-15 07:02] LABS: HCT 27.5 % (39.0-53.0); HGB 8.9 gm/dL (13.0-17.5); Hypochromasia Slight; MCH 28.6 pg (25.0-35.0); MCHC 32.4 g/dL (31.0-37.0); MCV 88.4 fL (80.0-100.0); Mean Platelet Volume 6.8; Platelet Count 583 k/uL (150-450); RBC 3.11 m/uL (4.30-5.90); RDW 14.3 % (11.5-15.5); WBC 14.7 k/uL (3.8-10.6)
[2017-09-15 07:23] LABS: Glucose,Whole Blood 85 mg/dL (75-99)
[2017-09-15 07:24] LABS: Calcium 7.9 mg/dL (8.4-10.2); Potassium 4.7 mmol/L (3.5-5.1)
[2017-09-15] MEDS: SODIUM BICARBONATE TAB 650 MG TAB PO SCH ×3 (08:23→21:32)
[2017-09-15] MEDS: FAMOTIDINE 20 MG TAB PO SCH (08:23)
[2017-09-15] MEDS: CALCIUM ACETATE 667 MG CAP PO SCH ×3 (08:23→17:22)
[2017-09-15] MEDS: LIDOCAINE 5% PATCH TOPICAL SCH (08:25)
[2017-09-15] MEDS: traMADol 50 MG TAB PO PRN (08:25)
[2017-09-15] MEDS: INSULIN ASPART 100 UNIT/ML 1 ML 10 ML VIAL SQ SCH ×4 (08:26→21:29)
[2017-09-15] MEDS: cefTRIAXone IN SWFI 1,000 MG/10 ML SYRINGE IVP SCH (08:26)
[2017-09-15] MEDS: SODIUM FERRIC GLUCONAT-SUCROSE 125 MG in SODIUM CHLORIDE 0.9% 100 ML IVPB SCH (09:56)
--- NOTE | 2017-09-15 10:05 | P.PN ---
Subjective 57-year-old pleasant female admitted for the acute renal failure creatinine remains stable patient appears to have right lower lobe pneumonia repeat chest x -ray did show clear-cut infiltrate patient will remain on ceftriaxone for now and be is to have her come in today quite pneumonia. I will increase fluid rate 1 25 mL per hour patient is A getting oral bicarbonate. Patient is feeling much better today. 09/15/2017 Patient is IV fluids will be decreased to surfaces per hour unfortunately there is no improvement in his a serum creatinine and BMP and actually worsened which is probably contributing to his acid reflux symptoms as patient's symptoms is quite concerning although switch his Pepcid to Protonix. I'm avoiding proton pump inhibitor because the poor renal function until now. Constitutional: Denied any fatigue denied any fever. Cardio vascular: denied any chest pain, palpitations Gastrointestinal denied any nausea vomiting Pulmonary: Denied any shortness of breath cough Neurologic denied any new focal deficits Objective - Vital Signs Vital signs: Vital Signs Temp 98.3 F 09/15/17 05:19 Pulse 89 09/15/17 05:19 Resp 16 09/15/17 05:19 BP 179/84 09/15/17 05:19 Pulse Ox 96 09/15/17 07:33 Intake & Output 09/14/17 09/15/17 09/15/17 18:59 06:59 18:59 Intake Total 950 1490 Output Total 700 250 Balance 250 1240 Intake: Intake, IV Titration 950 1250 Amount Sodium Chloride 0.9% 1, 625 1250 000 ml @ 125 mls/hr IV . Q8H [facility] Rx#:[id number] Sodium Chloride 0.9% 1, 225 000 ml @ 75 mls/hr IV . [id number] [facility] Rx#:[id number] Sodium Ferric Gluconat- 100 Sucrose 125 mg In Sodium Chloride 0.9% 100 ml @ 100 mls/hr IVPB DAILY [facility] Rx#:[id number] Oral 240 Output: Urine 700 250 Other: Voiding Method Toilet Toilet Urinal Urinal # Voids 4 # Bowel Movements 1 - Exam PHYSICAL EXAMINATION: GENERAL: The patient is alert and oriented x3, not in any acute distress. Well developed, well nourished. HEENT: Pupils are round and equally reacting to light. EOMI. No scleral icterus. No conjunctival pallor. Normocephalic, atraumatic. No pharyngeal erythema. No thyromegaly. CARDIOVASCULAR: S1 and S2 present. No murmurs, rubs, or gallops. PULMONARY: Good air entry into bilateral lung calles minimal right lower lobe crackles are appreciated ABDOMEN: Soft, nontender, nondistended, normoactive bowel sounds. No palpable organomegaly. MUSCULOSKELETAL: No joint swelling or deformity. EXTREMITIES: No cyanosis, clubbing, or pedal edema. NEUROLOGICAL: Gross neurological examination did not reveal any focal deficits. SKIN: No rashes. - Labs CBC & Chem 7: 09/15/17 06:35 09/15/17 06:35 Labs: Abnormal Lab Results - Last 24 Hours (Table) 09/14/17 09/14/17 09/14/17 Range/Units 07:31 07:31 11:25 WBC 17.0 H (3.8-10.6) k/uL RBC 3.26 L (4.30-5.90) m/uL Hgb 9.4 L (13.0-17.5) gm/dL Hct 29.1 L (39.0-53.0) % Plt Count 553 H (150-450) k/uL Sodium (137-145) mmol/L Carbon Dioxide (22-30) mmol/L BUN (9-20) mg/dL Creatinine (0.66-1.25) mg/dL POC Glucose (mg/dL) 111 H (75-99) mg/dL Calcium (8.4-10.2) mg/dL Total Protein (PEP) 4.9 L (6.2-8.2) g/dL 09/14/17 09/14/17 09/15/17 Range/Units 16:37 20:09 06:35 WBC 14.7 H (3.8-10.6) k/uL RBC 3.11 L (4.30-5.90) m/uL Hgb 8.9 L (13.0-17.5) gm/dL Hct 27.5 L (39.0-53.0) % Plt Count 583 H (150-450) k/uL Sodium (137-145) mmol/L Carbon Dioxide (22-30) mmol/L BUN (9-20) mg/dL Creatinine (0.66-1.25) mg/dL POC Glucose (mg/dL) 113 H 111 H (75-99) mg/dL Calcium (8.4-10.2) mg/dL Total Protein (PEP) (6.2-8.2) g/dL 09/15/17 Range/Units 06:35 WBC (3.8-10.6) k/uL RBC (4.30-5.90) m/uL Hgb (13.0-17.5) gm/dL Hct (39.0-53.0) % Plt Count (150-450) k/uL Sodium 136 L (137-145) mmol/L Carbon Dioxide 16 L (22-30) mmol/L BUN 91 H* (9-20) mg/dL Creatinine 8.49 H* (0.66-1.25) mg/dL POC Glucose (mg/dL) (75-99) mg/dL Calcium 7.9 L (8.4-10.2) mg/dL Total Protein (PEP) (6.2-8.2) g/dL Assessment and Plan Plan: -Renal failure mostly acute renal failure chronic kidney disease cannot be ruled out. Patient most probably has multifactorial renal failure secondary to nonoliguric acute tubular necrosis secondary to nonsteroidal anti-inflammatory is with intravascular volume depletion and prerenal azotemia. Chronic kidney disease cannot be completely ruled out ultrasound of the kidneys essentially within normal limits. Patient was started on oral sodium bicarbonate IV fluids will recheck kidney function tomorrow. Echocardiogram showed normal ejection fraction. Patient's kidney function did not improve -Community-acquired pneumonia right lower lobe: Patient is on Rocephin -Elevated troponins minimal elevation secondary to renal failure. -Metabolic acidosis anion gap secondary to uremia -Nausea epigastric abdominal discomfort can be secondary to uremia or gastritis patient was started on Pepcid 9 anemia: Probably anemia of chronic kidney disease ferritin is actually high -Type 2 diabetes mellitus: Will use sliding scale insulin for now-noncompliance with dietary and medication conditions
[2017-09-15 12:08] LABS: Glucose,Whole Blood 143 mg/dL (75-99)
[2017-09-15] MEDS: PANTOPRAZOLE 40 MG/10 ML VIAL IVP SCH (13:05)
--- NOTE | 2017-09-15 14:09 | P.PN ---
Subjective Patient is seen in follow-up for acute kidney injury. Unknown baseline renal function as he hasn't seen a physician in over 10 years. No improvement in renal function with creatinine 8.49 today. Overall the patient's feels fine. Denies nausea or vomiting. Admits to good urine output. Vital signs are stable. General: The patient appeared well nourished and normally developed. HEENT: Head exam is unremarkable. Neck is without jugular venous distension. LUNGS: Lungs are clear to auscultation and percussion. Breath sounds decreased. HEART: Rate and Rhythm are regular. First and second heart sounds normal. No murmurs, rubs or gallops. ABDOMEN: Abdominal exam reveals normal bowel sounds. Non-tender and non- distended. No evidence of peritonitis. EXTREMITITES: No clubbing, cyanosis, or edema. Objective - Vital Signs Vital signs: Vital Signs Temp 98.3 F 09/15/17 05:19 Pulse 89 09/15/17 05:19 Resp 16 09/15/17 05:19 BP 179/84 09/15/17 05:19 Pulse Ox 96 09/15/17 07:33 Intake & Output 09/14/17 09/15/17 09/15/17 18:59 06:59 18:59 Intake Total 950 1490 Output Total 700 250 Balance 250 1240 Intake: Intake, IV Titration 950 1250 Amount Sodium Chloride 0.9% 1, 625 1250 000 ml @ 125 mls/hr IV . Q8H [facility] Rx#:[id number] Sodium Chloride 0.9% 1, 225 000 ml @ 75 mls/hr IV . [id number] [facility] Rx#:[id number] Sodium Ferric Gluconat- 100 Sucrose 125 mg In Sodium Chloride 0.9% 100 ml @ 100 mls/hr IVPB DAILY [facility] Rx#:[id number] Oral 240 Output: Urine 700 250 Other: Voiding Method Toilet Toilet Urinal Urinal # Voids 4 # Bowel Movements 1 - Labs CBC & Chem 7: 09/15/17 06:35 09/15/17 06:35 Labs: Abnormal Lab Results - Last 24 Hours (Table) 09/14/17 09/14/17 09/14/17 Range/Units 07:31 16:37 20:09 WBC (3.8-10.6) k/uL RBC (4.30-5.90) m/uL Hgb (13.0-17.5) gm/dL Hct (39.0-53.0) % Plt Count (150-450) k/uL Sodium (137-145) mmol/L Carbon Dioxide (22-30) mmol/L BUN (9-20) mg/dL Creatinine (0.66-1.25) mg/dL POC Glucose (mg/dL) 113 H 111 H (75-99) mg/dL Calcium (8.4-10.2) mg/dL Total Protein (PEP) 4.9 L (6.2-8.2) g/dL 09/15/17 09/15/17 09/15/17 Range/Units 06:35 06:35 12:06 WBC 14.7 H (3.8-10.6) k/uL RBC 3.11 L (4.30-5.90) m/uL Hgb 8.9 L (13.0-17.5) gm/dL Hct 27.5 L (39.0-53.0) % Plt Count 583 H (150-450) k/uL Sodium 136 L (137-145) mmol/L Carbon Dioxide 16 L (22-30) mmol/L BUN 91 H* (9-20) mg/dL Creatinine 8.49 H* (0.66-1.25) mg/dL POC Glucose (mg/dL) 143 H (75-99) mg/dL Calcium 7.9 L (8.4-10.2) mg/dL Total Protein (PEP) (6.2-8.2) g/dL Assessment and Plan Plan: Assessment: 1. Acute kidney injury secondary to ATN secondary to nonsteroidals and intravascular volume depletion. No improvement in renal function with creatinine staying above 8. Unknown baseline creatinine. Renal ultrasound benign. Urinalysis does reveal proteinuria which is likely secondary to underlying diabetes. Rule out GN. 2. Insulin-dependent diabetes mellitus. 3. Mild hyperkalemia secondary to acute kidney injury and metabolic acidosis. Hyperglycemia contributive factor as well. Improved. 4. Metabolic acidosis secondary to acute kidney injury maintained on oral sodium bicarbonate. 5. Hyperphosphatemia secondary to acute kidney injury. Maintained on PhosLo. 6. Anemia. Iron deficiency noted. Plan: I will decrease rate of normal saline to 50 mL an hour. Quantify proteinuria. Follow-up serologies. Further set 125 mg IV daily for 3 days. Second dose today. Avoid nephrotoxic agents and hypotensive episodes. Consult vascular surgery for dialysis catheter placement. First treatment of hemodialysis tomorrow. Will also schedule for kidney biopsy to assess the chronicity of his underlying kidney disease and for a definitive diagnosis.
[2017-09-15] MEDS ORDERED: DARBEPOETIN ALFA 40 MCG/0.4 ML SYRINGE SQ SCH (15:00)
[2017-09-15 17:05] LABS: Glucose,Whole Blood 100 mg/dL (75-99)
[2017-09-15] MEDS: ACETAMINOPHEN TAB 325 MG TAB PO PRN (17:31)
[2017-09-15 20:04] LABS: Glucose,Whole Blood 128 mg/dL (75-99)
[2017-09-16] MEDS ORDERED: IPRATROPIUM-ALBUTEROL 3 ML NEB INHALATION STA (00:35)
[2017-09-16] MEDS: guaiFENesin SYRUP 100MG/5ML 200 MG/10 ML CUP PO PRN ×4 (05:33→23:12)
[2017-09-16 07:03] LABS: Glucose,Whole Blood 116 mg/dL (75-99)
[2017-09-16] MEDS: INSULIN ASPART 100 UNIT/ML 1 ML 10 ML VIAL SQ SCH ×4 (08:00→21:09)
[2017-09-16] MEDS: PANTOPRAZOLE 40 MG/10 ML VIAL IVP SCH (08:00)
[2017-09-16] MEDS: cefTRIAXone IN SWFI 1,000 MG/10 ML SYRINGE IVP SCH (08:15)
[2017-09-16] MEDS: LIDOCAINE 5% PATCH TOPICAL SCH (08:15)
[2017-09-16 08:29] LABS: Calcium 8.5 mg/dL (8.4-10.2); Potassium 4.8 mmol/L (3.5-5.1)
[2017-09-16] MEDS ORDERED: IV FLUID CONTINUATION 1,000 ML IV ONE (08:30)
[2017-09-16] MEDS: fentaNYL (PF) 50 MCG/ML 2 ML AMP IV ONE ×2 (08:38→09:09)
[2017-09-16] MEDS: MIDAZOLAM 2 MG/2 ML VIAL IV ONE ×2 (08:38→09:09)
[2017-09-16] MEDS ORDERED: LIDOCAINE 1% INJ 10MG/ML (20 ML MDV) SQ ONE (08:43)
[2017-09-16] MEDS ORDERED: hydrALAZINE HCL 20 MG/ML 1 ML VIAL IV ONE (08:54)
--- NOTE | 2017-09-16 08:57 | CONS ---
DATE OF CONSULTATION: 09/16/2017 This is a 57-year-old gentleman who was seen in consultation for placement of urgent dialysis catheter. His creatinine is high and the patient needs dialysis catheter. The patient has not seen a physician for last 10 years. He has history of diabetes since age 38 and has been on insulin. He also has a history of upper respiratory infection for the last 2 years. His creatinine is 8.5 today. MEDICAL HISTORY: History of diabetes mellitus, renal disease. PAST SURGICAL HISTORY: No surgical history reported. PERSONAL HISTORY: Nonsmoker. PHYSICAL EXAMINATION: Patient was seen. His vital signs stable. NECK: Supple. No bruit appreciated. CHEST: Clear. ABDOMEN: Soft. Vascular examination: Brachial radial and femoral pulses are present. IMPRESSION: 1. Acute kidney injury secondary to acute tubular necrosis secondary to nonsteroids and intravascular volume depletion. 2. Insulin-dependent diabetes mellitus. 3. Metabolic acidosis. 4. Anemia. PLAN: Placement of the dialysis catheter. Risks and complications discussed, bleeding , infection, thrombosis. MMODL / IJN: [id number] / MTDElla
--- NOTE | 2017-09-16 10:03 | PCN ---
PROCEDURE NOTE PREOPERATIVE DIAGNOSIS: Acute and chronic renal failure. PROCEDURE: Ultrasound-guided 23 cm dialysis catheter right internal jugular approach under local and IV sedation. Conscious sedation time is 40 minutes. The patient was brought to the sawyer cork slabs. Right side of the neck and chest was prepped and draped usual standard manner. Under local and IV sedation, ultrasound-guided micropuncture into the right jugular vein. Micropuncture guide was passed and 4-Andorran dilator was advanced off the guidewire. After that, a tunnel was created. Through the tunnel we brought 23 cm dialysis catheter. Then we passed a regular guidewire. On the top of the guidewire, we placed the dilator and sheath. Through the sheath we introduced the dialysis catheter. Tip of the catheter in superior vena cava and atrium. Flushed with heparin and saline and hep-locked. Incision was closed with Vicryl and skin was closed with nylon. Dressing applied. The patient is tolerated the procedure well and transferred to recovery room in satisfactory condition. MMODL / IJN: [id number] /
--- NOTE | 2017-09-16 10:34 | XR ---
EXAMINATION TYPE: XR chest 1V portable DATE OF EXAM: 09/16/2017 HISTORY: s/p dialysis catheter insertion. REFERENCE: Previous study dated 09/13/2017. FINDINGS: A large-bore, double-lumen catheter is been placed via a right internal jugular approach. I ts tip appears to be within the right atrium. There is worsening opacity of the right hemithorax. This may be due to a combination of fluid and ate lectasis. The right hemidiaphragm is elevated. The left lung is clear. Heart size is obscured. IMPRESSION: 1. SATISFACTORY CATHETER PLACEMENT. 2. WORSENING OPACITY OF THE RIGHT HEMITHORAX.
--- NOTE | 2017-09-16 11:04 | P.PN ---
Subjective 57-year-old pleasant female admitted for the acute renal failure creatinine remains stable patient appears to have right lower lobe pneumonia repeat chest x -ray did show clear-cut infiltrate patient will remain on ceftriaxone for now and be is to have her come in today quite pneumonia. I will increase fluid rate 1 25 mL per hour patient is A getting oral bicarbonate. Patient is feeling much better today. 09/15/2017 Patient is IV fluids will be decreased to surfaces per hour unfortunately there is no improvement in his a serum creatinine and BMP and actually worsened which is probably contributing to his acid reflux symptoms as patient's symptoms is quite concerning although switch his Pepcid to Protonix. I'm avoiding proton pump inhibitor because the poor renal function until now. 09/16/2017 Patient appears to be tired fatigued, received a central line for hemodialysis. Constitutional: denied any fever. Cardio vascular: denied any chest pain, palpitations Gastrointestinal denied any nausea vomiting Pulmonary: Denied any shortness of breath cough Neurologic denied any new focal deficits Objective - Vital Signs Vital signs: Vital Signs Temp 98.2 F 09/16/17 10:44 Pulse 96 09/16/17 08:21 Resp 20 09/16/17 10:44 BP 188/90 09/16/17 10:44 Pulse Ox 96 09/16/17 10:44 Intake & Output 09/15/17 09/16/17 09/16/17 18:59 06:59 18:59 Intake Total 1200 100 Balance 1200 100 Intake: IV 100 Intake, IV Titration 600 Amount Sodium Chloride 0.9% 1, 500 000 ml @ 50 mls/hr IV . Q20H BARBARA Rx#:[id number] Sodium Ferric Gluconat- 100 Sucrose 125 mg In Sodium Chloride 0.9% 100 ml @ 100 mls/hr IVPB DAILY BARABRA Rx#:[id number] Oral 600 Other: Voiding Method Toilet Toilet Urinal Urinal # Voids 5 2 - Exam PHYSICAL EXAMINATION: GENERAL: The patient is alert and oriented x3, not in any acute distress. Well developed, well nourished. HEENT: Pupils are round and equally reacting to light. EOMI. No scleral icterus. No conjunctival pallor. Normocephalic, atraumatic. No pharyngeal erythema. No thyromegaly. CARDIOVASCULAR: S1 and S2 present. No murmurs, rubs, or gallops. PULMONARY: Good air entry into bilateral lung calles minimal right lower lobe crackles are appreciated ABDOMEN: Soft, nontender, nondistended, normoactive bowel sounds. No palpable organomegaly. MUSCULOSKELETAL: No joint swelling or deformity. EXTREMITIES: No cyanosis, clubbing, or pedal edema. NEUROLOGICAL: Gross neurological examination did not reveal any focal deficits. SKIN: No rashes. - Labs CBC & Chem 7: 09/15/17 06:35 09/16/17 06:59 Labs: Abnormal Lab Results - Last 24 Hours (Table) 09/15/17 09/15/17 09/15/17 Range/Units 12:06 14:44 17:04 Carbon Dioxide (22-30) mmol/L BUN (9-20) mg/dL Creatinine (0.66-1.25) mg/dL Glucose (74-99) mg/dL POC Glucose (mg/dL) 143 H 100 H (75-99) mg/dL U Random Total Protein >600 H (<12) mg/dL 09/15/17 09/16/17 09/16/17 Range/Units 20:02 06:59 07:01 Carbon Dioxide 16 L (22-30) mmol/L BUN 94 H* (9-20) mg/dL Creatinine 8.86 H* (0.66-1.25) mg/dL Glucose 115 H (74-99) mg/dL POC Glucose (mg/dL) 128 H 116 H (75-99) mg/dL U Random Total Protein (<12) mg/dL Assessment and Plan Plan: -Renal failure mostly acute renal failure chronic kidney disease cannot be ruled out. Patient most probably has multifactorial renal failure secondary to nonoliguric acute tubular necrosis secondary to nonsteroidal anti-inflammatory is with intravascular volume depletion and prerenal azotemia. Chronic kidney disease cannot be completely ruled out ultrasound of the kidneys essentially within normal limits. Patient was started on oral sodium bicarbonate IV fluids will recheck kidney function tomorrow. Echocardiogram showed normal ejection fraction. Patient's kidney function did not improve -Community-acquired pneumonia right lower lobe: Patient is on Rocephin -Elevated troponins minimal elevation secondary to renal failure. -Metabolic acidosis anion gap secondary to uremia -Nausea epigastric abdominal discomfort can be secondary to uremia or gastritis patient was started on Pepcid 9 anemia: Probably anemia of chronic kidney disease ferritin is actually high -Type 2 diabetes mellitus: Will use sliding scale insulin for now-noncompliance with dietary and medication conditions
[2017-09-16 11:41] LABS: Glucose,Whole Blood 122 mg/dL (75-99)
[2017-09-16] MEDS: SODIUM FERRIC GLUCONAT-SUCROSE 125 MG in SODIUM CHLORIDE 0.9% 100 ML IVPB SCH (13:43)
[2017-09-16] MEDS: SODIUM BICARBONATE TAB 650 MG TAB PO SCH ×3 (13:44→21:09)
[2017-09-16] MEDS: CALCIUM ACETATE 667 MG CAP PO SCH ×3 (13:45→17:51)
[2017-09-16 16:22] LABS: Glucose,Whole Blood 190 mg/dL (75-99)
[2017-09-16] MEDS: hydrALAZINE HCL 50 MG TAB PO PRN (17:48)
[2017-09-16 18:31] LABS: Hepatitis B Core IgM Non-Reactive (Non-Reactive); Hepatitis B Surface AB- Quant 3.5 mIU/mL
[2017-09-16 20:03] LABS: Glucose,Whole Blood 193 mg/dL (75-99)
[2017-09-16] MEDS: METOPROLOL TARTRATE 50 MG TAB PO PRN (21:08)
[2017-09-16] MEDS: traMADol 50 MG TAB PO PRN (23:53)
[2017-09-17] MEDS: guaiFENesin SYRUP 100MG/5ML 200 MG/10 ML CUP PO PRN ×2 (04:30→16:09)
[2017-09-17] MEDS: ACETAMINOPHEN TAB 325 MG TAB PO PRN (05:11)
[2017-09-17 07:12] LABS: Glucose,Whole Blood 149 mg/dL (75-99)
[2017-09-17 07:58] LABS: Basophils # (A) 0.1 k/uL (0-0.2); Basophils % (A) 0 %; Eosinophils # (A) 0.2 k/uL (0-0.7); Eosinophils % (A) 1 %; HCT 25.8 % (39.0-53.0); HGB 8.2 gm/dL (13.0-17.5); Lymphocytes # (A) 0.7 k/uL (1.0-4.8); Lymphocytes % (A) 5 %; MCH 27.3 pg (25.0-35.0); MCHC 31.7 g/dL (31.0-37.0); MCV 86.3 fL (80.0-100.0); Monocytes # (A) 1.1 k/uL (0-1.0); Monocytes % (A) 7 %; Neutrophils # (A) 12.5 k/uL (1.3-7.7); Neutrophils % (A) 85 %; Platelet Count 515 k/uL (150-450); RBC 2.99 m/uL (4.30-5.90); RDW 14.3 % (11.5-15.5); WBC 14.8 k/uL (3.8-10.6)
[2017-09-17 08:17] LABS: Calcium 7.9 mg/dL (8.4-10.2); Potassium 4.1 mmol/L (3.5-5.1)
[2017-09-17] MEDS: cefTRIAXone IN SWFI 1,000 MG/10 ML SYRINGE IVP SCH (08:26)
[2017-09-17] MEDS: CALCIUM ACETATE 667 MG CAP PO SCH ×3 (08:26→16:07)
[2017-09-17] MEDS: PANTOPRAZOLE 40 MG/10 ML VIAL IVP SCH (08:27)
[2017-09-17] MEDS: LIDOCAINE 5% PATCH TOPICAL SCH (08:27)
[2017-09-17] MEDS: INSULIN ASPART 100 UNIT/ML 1 ML 10 ML VIAL SQ SCH ×4 (08:28→20:31)
[2017-09-17] MEDS: SODIUM CHLORIDE 0.9% 1,000 ML IV SCH ×3 (08:29→16:05)
[2017-09-17] MEDS: SODIUM BICARBONATE TAB 650 MG TAB PO SCH ×3 (08:29→21:45)
[2017-09-17] MEDS: SODIUM FERRIC GLUCONAT-SUCROSE 125 MG in SODIUM CHLORIDE 0.9% 100 ML IVPB SCH (09:09)
[2017-09-17] MEDS: traMADol 50 MG TAB PO PRN ×2 (10:20→22:09)
--- NOTE | 2017-09-17 11:01 | P.PN ---
Subjective 57-year-old pleasant female admitted for the acute renal failure creatinine remains stable patient appears to have right lower lobe pneumonia repeat chest x -ray did show clear-cut infiltrate patient will remain on ceftriaxone for now and be is to have her come in today quite pneumonia. I will increase fluid rate 1 25 mL per hour patient is A getting oral bicarbonate. Patient is feeling much better today. 09/15/2017 Patient is IV fluids will be decreased to surfaces per hour unfortunately there is no improvement in his a serum creatinine and BMP and actually worsened which is probably contributing to his acid reflux symptoms as patient's symptoms is quite concerning although switch his Pepcid to Protonix. I'm avoiding proton pump inhibitor because the poor renal function until now. 09/16/2017 Patient appears to be tired fatigued, received a central line for hemodialysis. 09/17/2017 no overnight events patient feels much better repeat chest x-ray was opted which is showing the same and infiltrate which is bit worse now, nephrology yet to decide on her dialysis today Constitutional: denied any fever. Cardio vascular: denied any chest pain, palpitations Gastrointestinal denied any nausea vomiting Pulmonary: Denied any shortness of breath cough Neurologic denied any new focal deficits Objective - Vital Signs Vital signs: Vital Signs Temp 98.0 F 09/17/17 05:00 Pulse 89 09/17/17 05:00 Resp 16 09/17/17 05:00 BP 184/89 09/17/17 05:00 Pulse Ox 92 L 09/17/17 05:00 Intake & Output 09/16/17 09/17/17 09/17/17 18:59 06:59 18:59 Intake Total 600 Output Total 650 200 Balance -50 -200 Weight 78.2 kg Intake: IV 100 Intake, IV Titration 500 Amount Sodium Chloride 0.9% 1, 400 000 ml @ 50 mls/hr IV . Q20H [facility]BARA Rx#:[id number] Sodium Ferric Gluconat- 100 Sucrose 125 mg In Sodium Chloride 0.9% 100 ml @ 100 mls/hr IVPB DAILY [facility]BARA Rx#:[id number] Output: Urine 650 200 Other: Voiding Method Toilet Urinal Urinal # Voids 1 1 - Exam PHYSICAL EXAMINATION: GENERAL: The patient is alert and oriented x3, not in any acute distress. Well developed, well nourished. HEENT: Pupils are round and equally reacting to light. EOMI. No scleral icterus. No conjunctival pallor. Normocephalic, atraumatic. No pharyngeal erythema. No thyromegaly. CARDIOVASCULAR: S1 and S2 present. No murmurs, rubs, or gallops. PULMONARY: Good air entry into bilateral lung calles minimal right lower lobe crackles are appreciated ABDOMEN: Soft, nontender, nondistended, normoactive bowel sounds. No palpable organomegaly. MUSCULOSKELETAL: No joint swelling or deformity. EXTREMITIES: No cyanosis, clubbing, or pedal edema. NEUROLOGICAL: Gross neurological examination did not reveal any focal deficits. SKIN: No rashes. - Labs CBC & Chem 7: 09/17/17 07:32 09/17/17 07:32 Labs: Abnormal Lab Results - Last 24 Hours (Table) 09/16/17 09/16/17 09/16/17 Range/Units 11:40 16:21 20:01 WBC (3.8-10.6) k/uL RBC (4.30-5.90) m/uL Hgb (13.0-17.5) gm/dL Hct (39.0-53.0) % Plt Count (150-450) k/uL Neutrophils # (1.3-7.7) k/uL Lymphocytes # (1.0-4.8) k/uL Monocytes # (0-1.0) k/uL Sodium (137-145) mmol/L Carbon Dioxide (22-30) mmol/L BUN (9-20) mg/dL Creatinine (0.66-1.25) mg/dL Glucose (74-99) mg/dL POC Glucose (mg/dL) 122 H 190 H 193 H (75-99) mg/dL Calcium (8.4-10.2) mg/dL 09/17/17 09/17/17 09/17/17 Range/Units 07:11 07:32 07:32 WBC 14.8 H (3.8-10.6) k/uL RBC 2.99 L (4.30-5.90) m/uL Hgb 8.2 L (13.0-17.5) gm/dL Hct 25.8 L (39.0-53.0) % Plt Count 515 H (150-450) k/uL Neutrophils # 12.5 H (1.3-7.7) k/uL Lymphocytes # 0.7 L (1.0-4.8) k/uL Monocytes # 1.1 H (0-1.0) k/uL Sodium 136 L (137-145) mmol/L Carbon Dioxide 19 L (22-30) mmol/L BUN 74 H (9-20) mg/dL Creatinine 7.28 H* (0.66-1.25) mg/dL Glucose 144 H (74-99) mg/dL POC Glucose (mg/dL) 149 H (75-99) mg/dL Calcium 7.9 L (8.4-10.2) mg/dL Assessment and Plan Plan: -Renal failure mostly acute renal failure chronic kidney disease cannot be ruled out. Patient most probably has multifactorial renal failure secondary to nonoliguric acute tubular necrosis secondary to nonsteroidal anti-inflammatory is with intravascular volume depletion and prerenal azotemia. Chronic kidney disease cannot be completely ruled out ultrasound of the kidneys essentially within normal limits. Patient was started on oral sodium bicarbonate IV fluids will recheck kidney function tomorrow. Echocardiogram showed normal ejection fraction. Patient's kidney function did not improve -Community-acquired pneumonia right lower lobe: Patient is on Rocephin -Elevated troponins minimal elevation secondary to renal failure. -Metabolic acidosis anion gap secondary to uremia -Nausea epigastric abdominal discomfort can be secondary to uremia or gastritis patient was started on Pepcid 9 anemia: Probably anemia of chronic kidney disease ferritin is actually high -Type 2 diabetes mellitus: Will use sliding scale insulin for now-noncompliance with dietary and medication conditions
[2017-09-17 11:28] LABS: Glucose,Whole Blood 151 mg/dL (75-99)
[2017-09-17 16:44] LABS: Glucose,Whole Blood 215 mg/dL (75-99)
[2017-09-17 20:02] LABS: Glucose,Whole Blood 129 mg/dL (75-99)
[2017-09-17] MEDS: hydrALAZINE HCL 50 MG TAB PO PRN (21:46)
[2017-09-18] MEDS: METOPROLOL TARTRATE 50 MG TAB PO PRN (05:44)
[2017-09-18] MEDS: hydrALAZINE HCL 50 MG TAB PO PRN ×2 (05:44→22:03)
--- NOTE | 2017-09-18 06:47 | PN ---
PROGRESS NOTE Patient is seen for followup for advanced renal failure. He had his first treatment of hemodialysis yesterday. Overall, patient states he is feeling slightly better. He continues to have good urine output. We will dialyze him again tomorrow. Serum creatinine remains elevated although slightly improved at 7.2. PHYSICAL EXAMINATION: Blood pressure is elevated at 184/89. The patient is afebrile. Examination of the heart: S1, S2. Examination of the lungs: Bilateral breath sounds are heard. Abdomen is soft, nontender. Examination lower extremities shows trace edema bilaterally. PIERCER exam is grossly intact. LABS: Reveals sodium 136, potassium 4.1, BUN 74, serum creatinine 7.28. ASSESSMENT: 1. Advanced renal failure with no previous labs available for comparison. Most likely patient has acute kidney injury from acute tubular necrosis. He is nonoliguric. The patient is hemodialysis dependent. We will dialyze him again tomorrow and continue to monitor his renal function. He will be scheduled for kidney biopsy as well. We will dialyze him tomorrow morning. 2. Metabolic acidosis, maintained on oral sodium bicarb, currently improving with dialysis as well. We will decrease/discontinue the sodium bicarb once the patient has had a few more treatments of hemodialysis. 3. Hypertension, partly related to some degree of volume overload. I will decrease the IV fluids. We will check a chest x-ray as well. 4. Anemia with no active bleeding noted, maintained on Aranesp. 5. Hyperphosphatemia associated with renal failure, maintained on PhosLo. PLAN: Next hemodialysis will be tomorrow. Discontinue IV fluids. Maintained good oral intake. Check chest x-ray. We will diurese the patient if he has evidence of volume overload. He will be maintained on daily dialysis for the next 2-3 days. MMODL / IJN: [id number] /
[2017-09-18 06:58] LABS: Glucose,Whole Blood 139 mg/dL (75-99)
[2017-09-18] MEDS: cefTRIAXone IN SWFI 1,000 MG/10 ML SYRINGE IVP SCH (07:15)
[2017-09-18] MEDS: LIDOCAINE 5% PATCH TOPICAL SCH (07:15)
[2017-09-18] MEDS: CALCIUM ACETATE 667 MG CAP PO SCH ×3 (07:15→17:09)
[2017-09-18] MEDS: PANTOPRAZOLE 40 MG/10 ML VIAL IVP SCH (07:16)
[2017-09-18] MEDS: INSULIN ASPART 100 UNIT/ML 1 ML 10 ML VIAL SQ SCH ×4 (07:17→20:24)
[2017-09-18 07:38] LABS: Calcium 8.4 mg/dL (8.4-10.2); Potassium 4.3 mmol/L (3.5-5.1)
--- NOTE | 2017-09-18 08:44 | IR ---
EXAMINATION TYPE: IR cvc insert central tunneled DATE OF EXAM: 09/16/2017 CLINICAL HISTORY: Catheter insertion TECHNIQUE: Fluoroscopy. COMPARISON: None. FINDINGS: Fluoroscopic time was 6.3 minutes provided IMPRESSION: As Above.
[2017-09-18 09:54] LABS: INR 1.2 (<1.2); Prothrombin Time 11.1 sec (9.0-12.0)
[2017-09-18] MEDS: SODIUM BICARBONATE TAB 650 MG TAB PO SCH ×3 (10:03→22:03)
[2017-09-18] MEDS: traMADol 50 MG TAB PO PRN ×2 (10:03→17:07)
--- NOTE | 2017-09-18 10:41 | P.PN ---
Subjective Patient is seen in follow-up for acute kidney injury. Unknown baseline renal function as he hasn't seen a physician in over 10 years. No improvement in renal function this admission and he was started on hemodialysis on September 16. Overall the patient's feels fine. Denies nausea or vomiting. Admits to good urine output. Does have swelling in the legs. Vital signs are stable. General: The patient appeared well nourished and normally developed. HEENT: Head exam is unremarkable. Neck is without jugular venous distension. LUNGS: Lungs are clear to auscultation and percussion. Breath sounds decreased. HEART: Rate and Rhythm are regular. First and second heart sounds normal. No murmurs, rubs or gallops. ABDOMEN: Abdominal exam reveals normal bowel sounds. Non-tender and non- distended. No evidence of peritonitis. EXTREMITITES: 1+ edema. Objective - Vital Signs Vital signs: Vital Signs Temp 98.0 F 09/18/17 05:00 Pulse 78 09/18/17 06:51 Resp 20 09/18/17 05:00 BP 136/79 09/18/17 06:51 Pulse Ox 94 L 09/18/17 05:00 Intake & Output 09/17/17 09/18/17 09/18/17 18:59 06:59 18:59 Intake Total 1180 Output Total 600 420 Balance 580 -420 Weight 78.2 kg Intake: Intake, IV Titration 700 Amount Sodium Chloride 0.9% 1, 600 000 ml @ 50 mls/hr IV . Q20H [facility] Rx#:[id number] Sodium Ferric Gluconat- 100 Sucrose 125 mg In Sodium Chloride 0.9% 100 ml @ 100 mls/hr IVPB DAILY [facility] Rx#:[id number] Oral 480 Output: Urine 600 420 Other: Voiding Method Urinal Toilet Urinal Urinal # Voids 2 - Labs CBC & Chem 7: 09/17/17 07:32 09/18/17 06:52 Labs: Abnormal Lab Results - Last 24 Hours (Table) 09/17/17 09/17/17 09/17/17 Range/Units 11:28 16:42 20:01 Carbon Dioxide (22-30) mmol/L BUN (9-20) mg/dL Creatinine (0.66-1.25) mg/dL Glucose (74-99) mg/dL POC Glucose (mg/dL) 151 H 215 H 129 H (75-99) mg/dL 09/18/17 09/18/17 Range/Units 06:52 06:56 Carbon Dioxide 19 L (22-30) mmol/L BUN 84 H* (9-20) mg/dL Creatinine 7.82 H* (0.66-1.25) mg/dL Glucose 118 H (74-99) mg/dL POC Glucose (mg/dL) 139 H (75-99) mg/dL Assessment and Plan Plan: Assessment: 1. Acute kidney injury secondary to ATN secondary to nonsteroidals and intravascular volume depletion. No improvement in renal function with creatinine staying above 8. Unknown baseline creatinine. Renal ultrasound benign. Urinalysis does reveal proteinuria which is likely secondary to underlying diabetes. Rule out GN - serologies negative so far. Scheduled for a kidney biopsy did today or tomorrow. 2. Insulin-dependent diabetes mellitus. 3. Mild hyperkalemia secondary to acute kidney injury and metabolic acidosis. Hyperglycemia contributive factor as well. Improved. 4. Metabolic acidosis secondary to acute kidney injury maintained on oral sodium bicarbonate. 5. Hyperphosphatemia secondary to acute kidney injury. Maintained on PhosLo. 6. Anemia. Iron deficiency noted - status post 3 doses of IV iron. Plan: Hep-Lock IV fluids. Follow-up the pending serologies. Avoid nephrotoxic agents and hypotensive episodes. Second treatment of hemodialysis today. Add Lasix 80 mg IV twice daily. I will also give him a dose of IV DDAVP prior to kidney biopsy. assistant maintenance manager to help facilitate outpatient hemodialysis set up.
[2017-09-18] MEDS ORDERED: DESMOPRESSIN ACETATE 4 MCG/ML VIAL (MDV) IVPB ONE (10:45)
--- NOTE | 2017-09-18 10:49 | P.PN ---
Subjective 57-year-old pleasant female admitted for the acute renal failure creatinine remains stable patient appears to have right lower lobe pneumonia repeat chest x -ray did show clear-cut infiltrate patient will remain on ceftriaxone for now and be is to have her come in today quite pneumonia. I will increase fluid rate 1 25 mL per hour patient is A getting oral bicarbonate. Patient is feeling much better today. 09/15/2017 Patient is IV fluids will be decreased to surfaces per hour unfortunately there is no improvement in his a serum creatinine and BMP and actually worsened which is probably contributing to his acid reflux symptoms as patient's symptoms is quite concerning although switch his Pepcid to Protonix. I'm avoiding proton pump inhibitor because the poor renal function until now. 09/16/2017 Patient appears to be tired fatigued, received a central line for hemodialysis. 09/17/2017 no overnight events patient feels much better repeat chest x-ray was opted which is showing the same and infiltrate which is bit worse now, nephrology yet to decide on her dialysis today 09/18/2017 patient is an not feeling well will undergo hemodialysis today Constitutional: denied any fever. Cardio vascular: denied any chest pain, palpitations Gastrointestinal denied any nausea vomiting Pulmonary: Denied any shortness of breath cough Neurologic denied any new focal deficits Objective - Vital Signs Vital signs: Vital Signs Temp 98.0 F 09/18/17 05:00 Pulse 78 09/18/17 06:51 Resp 20 09/18/17 05:00 BP 136/79 09/18/17 06:51 Pulse Ox 94 L 09/18/17 05:00 Intake & Output 09/17/17 09/18/17 09/18/17 18:59 06:59 18:59 Intake Total 1180 Output Total 600 420 Balance 580 -420 Weight 78.2 kg Intake: Intake, IV Titration 700 Amount Sodium Chloride 0.9% 1, 600 000 ml @ 50 mls/hr IV . Q20H [facility] Rx#:[id number] Sodium Ferric Gluconat- 100 Sucrose 125 mg In Sodium Chloride 0.9% 100 ml @ 100 mls/hr IVPB DAILY [facility]A Rx#:[id number] Oral 480 Output: Urine 600 420 Other: Voiding Method Urinal Toilet Urinal Urinal # Voids 2 - Exam PHYSICAL EXAMINATION: GENERAL: The patient is alert and oriented x3, not in any acute distress. Well developed, well nourished. HEENT: Pupils are round and equally reacting to light. EOMI. No scleral icterus. No conjunctival pallor. Normocephalic, atraumatic. No pharyngeal erythema. No thyromegaly. CARDIOVASCULAR: S1 and S2 present. No murmurs, rubs, or gallops. PULMONARY: Good air entry into bilateral lung calles minimal right lower lobe crackles are appreciated ABDOMEN: Soft, nontender, nondistended, normoactive bowel sounds. No palpable organomegaly. MUSCULOSKELETAL: No joint swelling or deformity. EXTREMITIES: No cyanosis, clubbing, or pedal edema. NEUROLOGICAL: Gross neurological examination did not reveal any focal deficits. SKIN: No rashes. - Labs CBC & Chem 7: 09/17/17 07:32 09/18/17 06:52 Labs: Abnormal Lab Results - Last 24 Hours (Table) 09/17/17 09/17/17 09/17/17 Range/Units 11:28 16:42 20:01 INR (<1.2) Carbon Dioxide (22-30) mmol/L BUN (9-20) mg/dL Creatinine (0.66-1.25) mg/dL Glucose (74-99) mg/dL POC Glucose (mg/dL) 151 H 215 H 129 H (75-99) mg/dL 09/18/17 09/18/17 09/18/17 Range/Units 06:52 06:56 09:27 INR 1.2 H (<1.2) Carbon Dioxide 19 L (22-30) mmol/L BUN 84 H* (9-20) mg/dL Creatinine 7.82 H* (0.66-1.25) mg/dL Glucose 118 H (74-99) mg/dL POC Glucose (mg/dL) 139 H (75-99) mg/dL Assessment and Plan Plan: -Renal failure mostly acute renal failure chronic kidney disease cannot be ruled out. Patient most probably has multifactorial renal failure secondary to nonoliguric acute tubular necrosis secondary to nonsteroidal anti-inflammatory is with intravascular volume depletion and prerenal azotemia. Chronic kidney disease cannot be completely ruled out ultrasound of the kidneys essentially within normal limits. Patient was started on oral sodium bicarbonate IV fluids will recheck kidney function tomorrow. Echocardiogram showed normal ejection fraction. Patient's kidney function did not improve. Patient will undergo renal biopsy will undergo hemodialysis no significant improvement in creatinine since admission -[facility]-acquired pneumonia right lower lobe: Patient is on Rocephin which will be continued -Elevated troponins minimal elevation secondary to renal failure. -Metabolic acidosis anion gap secondary to uremia -Nausea epigastric abdominal discomfort can be secondary to uremia or gastritis patient was started on Pepcid 9 anemia: Probably anemia of chronic kidney disease ferritin is actually high -Type 2 diabetes mellitus: Will use sliding scale insulin for now-noncompliance with dietary and medication conditions
[2017-09-18 11:00] LABS: Albumin 1.89 g/dL (3.80-4.90)
[2017-09-18] MEDS ORDERED: DESMOPRESSIN INJ 24 MCG in SODIUM CHLORIDE 0.9% 50 ML IVPB ONE (11:00)
[2017-09-18] MEDS: FUROSEMIDE 10 MG/ML 10 ML VIAL IV SCH ×2 (11:19→20:24)
[2017-09-18 11:23] LABS: Glucose,Whole Blood 139 mg/dL (75-99)
[2017-09-18] MEDS: IPRATROPIUM-ALBUTEROL 3 ML NEB INHALATION SCH ×4 (11:30→23:45)
[2017-09-18 15:29] LABS: C-ANCA <1:20 Titer (<1:20); P-ANCA <1:20 Titer (<1:20)
[2017-09-18] MEDS ORDERED: BENZOCAINE/MENTHOL LOZENG 1 EACH LOZENGE MUCOUS MEM PRN (15:45)
[2017-09-18 16:35] LABS: Glucose,Whole Blood 101 mg/dL (75-99)
[2017-09-18 19:59] LABS: Glucose,Whole Blood 213 mg/dL (75-99)
[2017-09-18] MEDS: guaiFENesin SYRUP 100MG/5ML 200 MG/10 ML CUP PO PRN (20:25)
[2017-09-19] MEDS: IPRATROPIUM-ALBUTEROL 3 ML NEB INHALATION SCH ×6 (04:11→23:39)
[2017-09-19] MEDS: CALCIUM ACETATE 667 MG CAP PO SCH ×3 (07:07→17:41)
[2017-09-19 07:08] LABS: Glucose,Whole Blood 179 mg/dL (75-99)
[2017-09-19] MEDS: cefTRIAXone IN SWFI 1,000 MG/10 ML SYRINGE IVP SCH (07:58)
[2017-09-19] MEDS: hydrALAZINE HCL 50 MG TAB PO PRN ×2 (08:17→20:57)
[2017-09-19] MEDS: METOPROLOL TARTRATE 50 MG TAB PO PRN (08:18)
[2017-09-19] MEDS: LIDOCAINE 5% PATCH TOPICAL SCH (08:20)
[2017-09-19] MEDS: SODIUM BICARBONATE TAB 650 MG TAB PO SCH ×3 (08:21→20:40)
[2017-09-19] MEDS: traMADol 50 MG TAB PO PRN ×2 (08:22→20:40)
[2017-09-19] MEDS: PANTOPRAZOLE 40 MG/10 ML VIAL IVP SCH (08:23)
[2017-09-19] MEDS: INSULIN ASPART 100 UNIT/ML 1 ML 10 ML VIAL SQ SCH ×4 (08:27→20:41)
[2017-09-19 08:44] LABS: Calcium 8.1 mg/dL (8.4-10.2); Potassium 4.2 mmol/L (3.5-5.1)
[2017-09-19] MEDS: FUROSEMIDE 10 MG/ML 10 ML VIAL IV SCH ×2 (10:31→20:41)
[2017-09-19 11:31] LABS: Glucose,Whole Blood 171 mg/dL (75-99)
[2017-09-19 12:00] VITALS: BMI 27.0
--- NOTE | 2017-09-19 14:02 | P.PN ---
Subjective Patient is seen in follow-up for acute kidney injury. Unknown baseline renal function as he hasn't seen a physician in over 10 years. No improvement in renal function this admission and he was started on hemodialysis on September 16. Overall the patient's feels fine. Denies nausea or vomiting. Admits to good urine output. Does have swelling in the legs. Currently seeing was undergoing hemodialysis. Vital signs are stable. General: The patient appeared well nourished and normally developed. HEENT: Head exam is unremarkable. Neck is without jugular venous distension. LUNGS: Lungs are clear to auscultation and percussion. Breath sounds decreased. HEART: Rate and Rhythm are regular. First and second heart sounds normal. No murmurs, rubs or gallops. ABDOMEN: Abdominal exam reveals normal bowel sounds. Non-tender and non- distended. No evidence of peritonitis. EXTREMITITES: 1+ edema. Objective - Vital Signs Vital signs: Vital Signs Temp 98.5 F 09/19/17 10:20 Pulse 92 09/19/17 12:50 Resp 20 09/19/17 11:40 BP 146/75 09/19/17 12:50 Pulse Ox 91 L 09/19/17 12:50 Intake & Output 09/18/17 09/19/17 09/19/17 18:59 06:59 18:59 Intake Total 0 Output Total 300 150 Balance -300 -150 Weight 78.2 kg 78.2 kg Intake: Oral 0 Output: Urine 300 150 Other: Voiding Method Urinal Urinal Urinal # Voids 0 1 - Labs CBC & Chem 7: 09/17/17 07:32 09/19/17 07:49 Labs: Abnormal Lab Results - Last 24 Hours (Table) 09/18/17 09/18/17 09/19/17 Range/Units 16:34 19:58 07:03 Sodium (137-145) mmol/L Carbon Dioxide (22-30) mmol/L BUN (9-20) mg/dL Creatinine (0.66-1.25) mg/dL Glucose (74-99) mg/dL POC Glucose (mg/dL) 101 H 213 H 179 H (75-99) mg/dL Calcium (8.4-10.2) mg/dL 09/19/17 09/19/17 Range/Units 07:49 11:18 Sodium 135 L (137-145) mmol/L Carbon Dioxide 21 L (22-30) mmol/L BUN 57 H (9-20) mg/dL Creatinine 6.25 H* (0.66-1.25) mg/dL Glucose 148 H (74-99) mg/dL POC Glucose (mg/dL) 171 H (75-99) mg/dL Calcium 8.1 L (8.4-10.2) mg/dL Assessment and Plan Plan: Assessment: 1. Acute kidney injury secondary to ATN secondary to nonsteroidals and intravascular volume depletion. No improvement in renal function with creatinine staying above 8. Unknown baseline creatinine. Renal ultrasound benign. Urinalysis does reveal proteinuria which is likely secondary to underlying diabetes. Rule out GN - serologies negative. Status post kidney biopsy this morning. 2. Insulin-dependent diabetes mellitus. 3. Mild hyperkalemia secondary to acute kidney injury and metabolic acidosis. Hyperglycemia contributive factor as well. Improved. 4. Metabolic acidosis secondary to acute kidney injury maintained on oral sodium bicarbonate. 5. Hyperphosphatemia secondary to acute kidney injury. Maintained on PhosLo. 6. Anemia. Iron deficiency noted - status post 3 doses of IV iron. Plan: Avoid nephrotoxic agents and hypotensive episodes. Maintain Lasix 80 mg IV twice daily. manager cardiovascular to help facilitate outpatient hemodialysis set up. He'll now be maintained on a Monday schedule while in the hospital.
[2017-09-19 15:20] VITALS: RESP 16
--- NOTE | 2017-09-19 16:51 | P.PN ---
Subjective Progress Note Date: 09/19/17 Progress note being dictated for Dr. Vinson Interval history:57-year-old pleasant female admitted for the acute renal failure creatinine remains stable patient appears to have right lower lobe pneumonia repeat chest x-ray did show clear-cut infiltrate patient will remain on ceftriaxone for now and be is to have her come in today quite pneumonia. I will increase fluid rate 1 25 mL per hour patient is A getting oral bicarbonate. Patient is feeling much better today. 09/15/2017 Patient is IV fluids will be decreased to surfaces per hour unfortunately there is no improvement in his a serum creatinine and BMP and actually worsened which is probably contributing to his acid reflux symptoms as patient's symptoms is quite concerning although switch his Pepcid to Protonix. I'm avoiding proton pump inhibitor because the poor renal function until now. 09/16/2017 Patient appears to be tired fatigued, received a central line for hemodialysis. 09/17/2017 no overnight events patient feels much better repeat chest x-ray was opted which is showing the same and infiltrate which is bit worse now, nephrology yet to decide on her dialysis today 09/18/2017 patient is an not feeling well will undergo hemodialysis today Constitutional: denied any fever. Cardio vascular: denied any chest pain, palpitations Gastrointestinal denied any nausea vomiting Pulmonary: Denied any shortness of breath cough Neurologic denied any new focal deficits 09/19/2017 patient has just returned from renal biopsy. tolerated procedure well. Creatinine down to 6.25, BUN 57. Scheduled for hemodialysis this morning. Diuresing well on Lasix IV push with 24-hour I&O reflecting a negative fluid balance. Oxygen weaned down to 2 L, maintaining O2 sats of 93%. Blood sugars controlled. Denies nausea or vomiting. Objective - Vital Signs Vital signs: Vital Signs Temp 98.5 F 09/19/17 10:20 Pulse 94 09/19/17 11:40 Resp 20 09/19/17 11:40 BP 153/80 09/19/17 10:50 Pulse Ox 96 09/19/17 10:35 Intake & Output 09/18/17 09/19/17 09/19/17 18:59 06:59 18:59 Intake Total 0 Output Total 300 150 Balance -300 -150 Weight 78.2 kg Intake: Oral 0 Output: Urine 300 150 Other: Voiding Method Urinal Urinal Urinal # Voids 0 1 - Exam GENERAL: The patient is alert and oriented x3, sitting up in bed, no acute distress. HEENT: Pupils are round and equally reacting to light. EOMI. No scleral icterus. No conjunctival pallor. Normocephalic, atraumatic. No pharyngeal erythema. No thyromegaly. CARDIOVASCULAR: S1 and S2 present. No murmurs, rubs, or gallops. PULMONARY: Good air entry into bilateral lung calles minimal right lower lobe crackles ABDOMEN: Soft, nontender, nondistended, normoactive bowel sounds. No palpable organomegaly. MUSCULOSKELETAL: No joint swelling or deformity. EXTREMITIES: No cyanosis, clubbing, positive lower extremity edema. NEUROLOGICAL: Gross neurological examination did not reveal any focal deficits. SKIN: No rashes. - Labs CBC & Chem 7: 09/17/17 07:32 09/19/17 07:49 Labs: Abnormal Lab Results - Last 24 Hours (Table) 09/18/17 09/18/17 09/19/17 Range/Units 16:34 19:58 07:03 Sodium (137-145) mmol/L Carbon Dioxide (22-30) mmol/L BUN (9-20) mg/dL Creatinine (0.66-1.25) mg/dL Glucose (74-99) mg/dL POC Glucose (mg/dL) 101 H 213 H 179 H (75-99) mg/dL Calcium (8.4-10.2) mg/dL 09/19/17 09/19/17 Range/Units 07:49 11:18 Sodium 135 L (137-145) mmol/L Carbon Dioxide 21 L (22-30) mmol/L BUN 57 H (9-20) mg/dL Creatinine 6.25 H* (0.66-1.25) mg/dL Glucose 148 H (74-99) mg/dL POC Glucose (mg/dL) 171 H (75-99) mg/dL Calcium 8.1 L (8.4-10.2) mg/dL Assessment and Plan Assessment: - acute renal failure secondary to ATN secondary to nonsteroidals, intravascular volume depletion and prerenal azotemia. Chronic kidney disease cannot be completely ruled out ultrasound of the kidneys essentially within normal limits. Status post renal biopsy. Hemodialysis initiated. -Community-acquired pneumonia right lower lobe -Elevated troponins minimal elevation secondary to renal failure. -Metabolic acidosis anion gap secondary to uremia -Nausea epigastric abdominal discomfort can be secondary to uremia or gastritis patient was started on Pepcid, improved -anemia: Probably anemia of chronic kidney disease, iron deficiency -Type 2 diabetes mellitus Plan: Continue on current medication regime, monitoring and symptomatic treatment. Maintain Rocephin, nebulized bronchodilators. Diuretics and Hemodialysis as per nephrology. Discharge planning in progress, outpatient hemodialysis been arranged as per case management. The impression and plan of care has been dictated as directed. : I performed a history and examination of this patient, discussed the same with the dictator. I agree with the dictator's note ,documented as a scribe. Any additional findings or plans will be noted.
[2017-09-19 17:00] LABS: Glucose,Whole Blood 188 mg/dL (75-99)
[2017-09-19] MEDS: ONDANSETRON 4 MG/2 ML VIAL IVP PRN (19:27)
[2017-09-19 20:14] LABS: Glucose,Whole Blood 333 mg/dL (75-99)
[2017-09-20] MEDS: IPRATROPIUM-ALBUTEROL 3 ML NEB INHALATION SCH ×6 (03:28→20:01)
[2017-09-20 07:11] LABS: Glucose,Whole Blood 240 mg/dL (75-99)
[2017-09-20] MEDS: INSULIN ASPART 100 UNIT/ML 1 ML 10 ML VIAL SQ SCH ×3 (07:55→17:33)
[2017-09-20] MEDS: CALCIUM ACETATE 667 MG CAP PO SCH ×3 (07:56→17:12)
[2017-09-20] MEDS: LIDOCAINE 5% PATCH TOPICAL SCH (07:56)
[2017-09-20] MEDS: PANTOPRAZOLE 40 MG/10 ML VIAL IVP SCH (07:57)
[2017-09-20] MEDS: SODIUM BICARBONATE TAB 650 MG TAB PO SCH (07:57)
[2017-09-20] MEDS: traMADol 50 MG TAB PO PRN ×2 (08:06→17:38)
[2017-09-20] MEDS: cefTRIAXone IN SWFI 1,000 MG/10 ML SYRINGE IVP SCH (08:06)
[2017-09-20] MEDS: FUROSEMIDE 10 MG/ML 10 ML VIAL IV SCH (10:43)
[2017-09-20] MEDS: hydrALAZINE HCL 50 MG TAB PO PRN (10:46)
--- NOTE | 2017-09-20 10:51 | P.PN ---
Subjective 57-year-old pleasant female admitted for the acute renal failure creatinine remains stable patient appears to have right lower lobe pneumonia repeat chest x -ray did show clear-cut infiltrate patient will remain on ceftriaxone for now and be is to have her come in today quite pneumonia. I will increase fluid rate 1 25 mL per hour patient is A getting oral bicarbonate. Patient is feeling much better today. 09/15/2017 Patient is IV fluids will be decreased to surfaces per hour unfortunately there is no improvement in his a serum creatinine and BMP and actually worsened which is probably contributing to his acid reflux symptoms as patient's symptoms is quite concerning although switch his Pepcid to Protonix. I'm avoiding proton pump inhibitor because the poor renal function until now. 09/16/2017 Patient appears to be tired fatigued, received a central line for hemodialysis. 09/17/2017 no overnight events patient feels much better repeat chest x-ray was opted which is showing the same and infiltrate which is bit worse now, nephrology yet to decide on her dialysis today 09/18/2017 patient is an not feeling well will undergo hemodialysis today 09/20/2017 Patient is set up for hemodialysis as an outpatient patient is saturating low because of which I'll hold his discharge today we'll reevaluate tomorrow. Patient was evaluated by physical therapy there not recommending any subacute rehabilitation will set up home PT for him. Constitutional: denied any fever. Cardio vascular: denied any chest pain, palpitations Gastrointestinal denied any nausea vomiting Pulmonary: Denied any shortness of breath cough Neurologic denied any new focal deficits Objective - Vital Signs Vital signs: Vital Signs Temp 98.7 F 09/20/17 05:20 Pulse 93 09/20/17 08:30 Resp 16 09/20/17 05:20 BP 169/78 09/20/17 05:20 Pulse Ox 97 09/20/17 08:18 Intake & Output 09/19/17 09/20/17 09/20/17 18:59 06:59 18:59 Intake Total 120 Output Total 1650 150 Balance -1650 -30 Weight 78.2 kg Intake: Oral 120 Output: Urine 150 150 Other 1500 Other: Voiding Method Urinal Urinal Urinal # Voids 2 1 - Exam PHYSICAL EXAMINATION: GENERAL: The patient is alert and oriented x3, not in any acute distress. Well developed, well nourished. HEENT: Pupils are round and equally reacting to light. EOMI. No scleral icterus. No conjunctival pallor. Normocephalic, atraumatic. No pharyngeal erythema. No thyromegaly. CARDIOVASCULAR: S1 and S2 present. No murmurs, rubs, or gallops. PULMONARY: Good air entry into bilateral lung calles minimal right lower lobe crackles are appreciated ABDOMEN: Soft, nontender, nondistended, normoactive bowel sounds. No palpable organomegaly. MUSCULOSKELETAL: No joint swelling or deformity. EXTREMITIES: No cyanosis, clubbing, or pedal edema. NEUROLOGICAL: Gross neurological examination did not reveal any focal deficits. SKIN: No rashes. - Labs CBC & Chem 7: 09/17/17 07:32 09/19/17 07:49 Labs: Abnormal Lab Results - Last 24 Hours (Table) 09/19/17 09/19/17 09/19/17 Range/Units 11:18 16:57 20:12 POC Glucose (mg/dL) 171 H 188 H 333 H (75-99) mg/dL 09/20/17 Range/Units 07:03 POC Glucose (mg/dL) 240 H (75-99) mg/dL Assessment and Plan Plan: -Renal failure mostly acute renal failure chronic kidney disease cannot be ruled out. Patient most probably has multifactorial renal failure secondary to nonoliguric acute tubular necrosis secondary to nonsteroidal anti-inflammatory is with intravascular volume depletion and prerenal azotemia. Chronic kidney disease cannot be completely ruled out ultrasound of the kidneys essentially within normal limits. Patient was started on oral sodium bicarbonate IV fluids will recheck kidney function tomorrow. Echocardiogram showed normal ejection fraction. Patient's kidney function did not improve. Patient will undergo renal biopsy will undergo hemodialysis no significant improvement in creatinine since admission -Community-acquired pneumonia right lower lobe: Patient is on Rocephin which will be continued -Elevated troponins minimal elevation secondary to renal failure. -Metabolic acidosis anion gap secondary to uremia -Nausea epigastric abdominal discomfort can be secondary to uremia or gastritis patient was started on Pepcid 9 anemia: Probably anemia of chronic kidney disease ferritin is actually high -Type 2 diabetes mellitus: Will use sliding scale insulin for now-noncompliance with dietary and medication conditions
--- NOTE | 2017-09-20 10:59 | P.PN ---
Subjective Patient is seen in follow-up for acute kidney injury. Unknown baseline renal function as he hasn't seen a physician in over 10 years. No improvement in renal function this admission and he was started on hemodialysis on September 16. Overall the patient's feels fine. Denies nausea or vomiting. Admits to good urine output. Does have swelling in the legs which has improved with ultrafiltration. Vital signs are stable. General: The patient appeared well nourished and normally developed. HEENT: Head exam is unremarkable. Neck is without jugular venous distension. LUNGS: Lungs are clear to auscultation and percussion. Breath sounds decreased. HEART: Rate and Rhythm are regular. First and second heart sounds normal. No murmurs, rubs or gallops. ABDOMEN: Abdominal exam reveals normal bowel sounds. Non-tender and non- distended. No evidence of peritonitis. EXTREMITITES: 1+ edema. Objective - Vital Signs Vital signs: Vital Signs Temp 98.7 F 09/20/17 05:20 Pulse 93 09/20/17 08:30 Resp 16 09/20/17 05:20 BP 169/78 09/20/17 05:20 Pulse Ox 97 09/20/17 08:18 Intake & Output 09/19/17 09/20/17 09/20/17 18:59 06:59 18:59 Intake Total 120 Output Total 1650 150 Balance -1650 -30 Weight 78.2 kg Intake: Oral 120 Output: Urine 150 150 Other 1500 Other: Voiding Method Urinal Urinal Urinal # Voids 2 1 - Labs CBC & Chem 7: 09/17/17 07:32 09/19/17 07:49 Labs: Abnormal Lab Results - Last 24 Hours (Table) 09/19/17 09/19/17 09/19/17 Range/Units 11:18 16:57 20:12 POC Glucose (mg/dL) 171 H 188 H 333 H (75-99) mg/dL 09/20/17 Range/Units 07:03 POC Glucose (mg/dL) 240 H (75-99) mg/dL Assessment and Plan Plan: Assessment: 1. Acute kidney injury secondary to ATN secondary to nonsteroidals and intravascular volume depletion. No improvement in renal function with creatinine staying above 8. Unknown baseline creatinine. Renal ultrasound benign. Urinalysis does reveal proteinuria which is likely secondary to underlying diabetes. Rule out GN - serologies negative. Status post kidney biopsy September 19. 2. Insulin-dependent diabetes mellitus. 3. Mild hyperkalemia secondary to acute kidney injury and metabolic acidosis. Hyperglycemia contributive factor as well. Improved. 4. Metabolic acidosis secondary to acute kidney injury maintained on oral sodium bicarbonate. 5. Hyperphosphatemia secondary to acute kidney injury. Maintained on PhosLo. 6. Anemia. Iron deficiency noted - status post 3 doses of IV iron. Plan: Avoid nephrotoxic agents and hypotensive episodes. I will change Lasix to 80 mg orally twice daily. Outpatient dialysis has been set up in [place] for Monday schedule. Stable to be discharged home from nephrology standpoint. He will be transitioned over to peritoneal dialysis down the road.
[2017-09-20 11:49] LABS: Glucose,Whole Blood 139 mg/dL (75-99)
[2017-09-20] MEDS: amLODIPine 10 MG TAB PO SCH (13:18)
[2017-09-20 16:51] LABS: Glucose,Whole Blood 170 mg/dL (75-99)
[2017-09-20] MEDS: FUROSEMIDE 80 MG TAB PO SCH (17:53)
[2017-09-20 19:49] LABS: Glucose,Whole Blood 149 mg/dL (75-99)
[2017-09-20] MEDS ORDERED: IPRATROPIUM-ALBUTEROL 3 ML NEB INHALATION PRN (19:51)
[2017-09-21] MEDS: SODIUM BICARBONATE TAB 650 MG TAB PO SCH ×2 (05:28→08:00)
[2017-09-21] MEDS: INSULIN ASPART 100 UNIT/ML 1 ML 10 ML VIAL SQ SCH ×3 (05:28→13:42)
[2017-09-21 07:06] LABS: Glucose,Whole Blood 174 mg/dL (75-99)
[2017-09-21] MEDS ORDERED: PANTOPRAZOLE 40 MG TABLET PO SCH (07:30)
[2017-09-21] MEDS: CALCIUM ACETATE 667 MG CAP PO SCH ×2 (07:58→13:42)
[2017-09-21 07:59] LABS: Calcium 8.1 mg/dL (8.4-10.2); Potassium 4.7 mmol/L (3.5-5.1)
[2017-09-21] MEDS: FUROSEMIDE 80 MG TAB PO SCH ×2 (07:59→15:37)
[2017-09-21] MEDS: cefTRIAXone IN SWFI 1,000 MG/10 ML SYRINGE IVP SCH (07:59)
[2017-09-21] MEDS: amLODIPine 10 MG TAB PO SCH (07:59)
[2017-09-21] MEDS: IPRATROPIUM-ALBUTEROL 3 ML NEB INHALATION SCH ×3 (07:59→16:13)
[2017-09-21] MEDS: LIDOCAINE 5% PATCH TOPICAL SCH (08:00)
[2017-09-21] MEDS ORDERED: LISINOPRIL 20 MG TAB PO SCH (09:15)
--- NOTE | 2017-09-21 09:43 | P.PN ---
Subjective Patient is seen in follow-up for acute kidney injury. Unknown baseline renal function as he hasn't seen a physician in over 10 years. No improvement in renal function this admission and he was started on hemodialysis on September 16. Overall the patient's feels fine. Denies nausea or vomiting. Admits to good urine output. Does have swelling in the legs which has improved with ultrafiltration. Vital signs are stable. General: The patient appeared well nourished and normally developed. HEENT: Head exam is unremarkable. Neck is without jugular venous distension. LUNGS: Lungs are clear to auscultation and percussion. Breath sounds decreased. HEART: Rate and Rhythm are regular. First and second heart sounds normal. No murmurs, rubs or gallops. ABDOMEN: Abdominal exam reveals normal bowel sounds. Non-tender and non- distended. No evidence of peritonitis. EXTREMITITES: 1+ edema. Objective - Vital Signs Vital signs: Vital Signs Temp 97.8 F 09/21/17 05:00 Pulse 100 09/21/17 08:12 Resp 16 09/21/17 05:30 BP 175/81 09/21/17 05:00 Pulse Ox 91 L 09/21/17 05:00 Intake & Output 09/20/17 09/21/17 09/21/17 18:59 06:59 18:59 Intake Total 1300 240 Output Total 150 300 200 Balance -150 1000 40 Intake: Oral 1300 240 Output: Urine 150 300 200 Other: Voiding Method Urinal Urinal # Voids 2 2 - Labs CBC & Chem 7: 09/17/17 07:32 09/21/17 06:42 Labs: Abnormal Lab Results - Last 24 Hours (Table) 09/20/17 09/20/17 09/20/17 Range/Units 11:45 16:48 19:48 Sodium (137-145) mmol/L Chloride (98-107) mmol/L BUN (9-20) mg/dL Creatinine (0.66-1.25) mg/dL Glucose (74-99) mg/dL POC Glucose (mg/dL) 139 H 170 H 149 H (75-99) mg/dL Calcium (8.4-10.2) mg/dL 09/21/17 09/21/17 Range/Units 06:42 06:56 Sodium 134 L (137-145) mmol/L Chloride 95 L (98-107) mmol/L BUN 53 H (9-20) mg/dL Creatinine 6.64 H* (0.66-1.25) mg/dL Glucose 150 H (74-99) mg/dL POC Glucose (mg/dL) 174 H (75-99) mg/dL Calcium 8.1 L (8.4-10.2) mg/dL Assessment and Plan Plan: Assessment: 1. 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 No improvement in renal function since admission with creatinine staying above 8. Unknown baseline creatinine. Renal ultrasound benign. Urinalysis does reveal proteinuria which is likely secondary to underlying diabetes. Rule out GN - serologies negative. Now maintained on hemodialysis on a Monday schedule. 2. Insulin-dependent diabetes mellitus. 3. Mild hyperkalemia secondary to acute kidney injury and metabolic acidosis. Hyperglycemia contributive factor as well. Improved. 4. Metabolic acidosis secondary to acute kidney injury maintained on oral sodium bicarbonate. 5. Hyperphosphatemia secondary to acute kidney injury. Maintained on PhosLo. 6. Anemia. Iron deficiency noted - status post 3 doses of IV iron. Plan: Avoid nephrotoxic agents and hypotensive episodes. L maintain asix to 80 mg orally twice daily. Outpatient dialysis has been set up in [place] for Monday schedule. Stable to be discharged home from nephrology standpoint. He will be transitioned over to peritoneal dialysis down the road.
--- NOTE | 2017-09-21 10:35 | CT ---
EXAMINATION TYPE: CT biopsy renal LT DATE OF EXAM: 09/19/2017 COMPARISON: NONE HISTORY: Biopsy for renal function CT DLP: 612.10 mGycm The procedure was explained to the patient. The risks, complications, benefits, and alternatives wer e discussed and any questions were answered. Informed consent was obtained. Patient was placed pron e on the CT table and prepped and draped in the usual sterile fashion. Utilizing CT guidance, an 18 gauge core biopsy needle access into the right renal cortex was achieved and four18 gauge core samples were obtained. The patient was stable throughout the procedure and re mained stable upon discharge. IMPRESSION: Successful 18 gauge core biopsy of the kidney function.
[2017-09-21 11:44] LABS: Glucose,Whole Blood 165 mg/dL (75-99)
--- NOTE | 2017-09-21 11:58 | P.DS ---
Providers Date of admission: 09/12/17 22:02 Attending physician: Kun Vinson Consults: 09/12/17 22:02 Consult Physician Stat Consulting Provider: Luciano De Anda Consult Reason/Comments: Acute renal failure Do you want consulting provider notified?: Already Contacted 09/12/17 22:07 Consult Physician Routine Consulting Provider: [facility] Consult Reason/Comments: new CHF Do you want consulting provider notified?: Yes, Notify in am 09/15/17 14:53 Consult Physician Stat Consulting Provider: Yandel Lucas Consult Reason/Comments: Dialysis cath in chest to be used for dialysis on Do you want consulting provider notified?: Yes Primary care physician: Stated None Hospital Course: 57-year-old pleasant female admitted for the acute renal failure creatinine remains stable patient appears to have right lower lobe pneumonia repeat chest x -ray did show clear-cut infiltrate patient will remain on ceftriaxone for now and be is to have her come in today quite pneumonia. I will increase fluid rate 1 25 mL per hour patient is A getting oral bicarbonate. Patient is feeling much better today. 09/15/2017 Patient is IV fluids will be decreased to surfaces per hour unfortunately there is no improvement in his a serum creatinine and BMP and actually worsened which is probably contributing to his acid reflux symptoms as patient's symptoms is quite concerning although switch his Pepcid to Protonix. I'm avoiding proton pump inhibitor because the poor renal function until now. 09/16/2017 Patient appears to be tired fatigued, received a central line for hemodialysis. 09/17/2017 no overnight events patient feels much better repeat chest x-ray was opted which is showing the same and infiltrate which is bit worse now, nephrology yet to decide on her dialysis today 09/18/2017 patient is an not feeling well will undergo hemodialysis today 09/20/2017 Patient is set up for hemodialysis as an outpatient patient is saturating low because of which I'll hold his discharge today we'll reevaluate tomorrow. Patient was evaluated by physical therapy there not recommending any subacute rehabilitation will set up home PT for him. 09/21/2017 Patient is doing well but still bit hypoxic patient will be discharged on home O2 I believe this is temporary. Unfortunately patient doesn't have insurance we will try and use hospital funds for his medications. Patient will follow-up with Dr. Greer as an outpatient. Patient is not requiring much of insulin here. I'm concerned that 7030 can drop his blood sugars and his blood sugars will fluctuate quite a bit with hemodialysis because of which I'm changing to Januvia with the Accu-Cheks twice a day. Although Januvia is expensive and don' t have much of choice regarding is a discharge diabetic medications. Patient will follow-up with nephrology as an outpatient as well. PHYSICAL EXAMINATION: GENERAL: The patient is alert and oriented x3, not in any acute distress. Well developed, well nourished. HEENT: Pupils are round and equally reacting to light. EOMI. No scleral icterus. No conjunctival pallor. Normocephalic, atraumatic. No pharyngeal erythema. No thyromegaly. CARDIOVASCULAR: S1 and S2 present. No murmurs, rubs, or gallops. PULMONARY: Good air entry into bilateral lung calles minimal right lower lobe crackles are appreciated ABDOMEN: Soft, nontender, nondistended, normoactive bowel sounds. No palpable organomegaly. MUSCULOSKELETAL: No joint swelling or deformity. EXTREMITIES: No cyanosis, clubbing, or pedal edema. NEUROLOGICAL: Gross neurological examination did not reveal any focal deficits. SKIN: No rashes. Assessment and Plan Plan: -Renal failure chronic kidney disease, end-stage renal disease secondary to diabetic nephropathy patient was initiated on hemodialysis hopefully can be switched to peritoneal dialysis as an outpatient -Community-acquired pneumonia right lower lobe: She will be discharged on 7 more days of Ceftin -Elevated troponins minimal elevation secondary to renal failure. -Metabolic acidosis anion gap secondary to uremia -Nausea epigastric abdominal discomfort can be secondary to uremia or gastritis anemia: Probably anemia of chronic kidney disease -Type 2 diabetes mellitus: Patient Condition at Discharge: Fair Plan - Discharge Summary New Discharge Prescriptions: New Albuterol Inhaler [Ventolin Hfa Inhaler] 1 - 2 puff INHALATION Q6HR PRN #1 inhaler PRN Reason: Shortness Of Breath Or Wheezing Cefuroxime Axetil [Ceftin] 500 mg PO BID #14 tab sitaGLIPtin PHOSPHATE [Januvia] 25 mg PO DAILY #30 tab Acetaminophen Tab [Tylenol] 650 mg PO Q6HR PRN #30 tab PRN Reason: Mild Pain Or Fever > 100.5 amLODIPine [Norvasc] 10 mg PO DAILY #30 tab Calcium Acetate [PhosLo] 667 mg PO TID-W/MEALS #90 cap Darbepoetin Vikash [Aranesp] 40 mcg SQ Q7D #2 syringe Furosemide [Lasix] 80 mg PO BID@0900,1600 #60 tab hydrALAZINE HCL [Apresoline] 100 mg PO QID PRN #120 tab PRN Reason: Blood Pressure - High Lisinopril [Zestril] 20 mg PO DAILY #30 tab Metoprolol Tartrate [Lopressor] 50 mg PO BID PRN #60 tab PRN Reason: Blood Pressure - High Sodium Bicarbonate Tab 650 mg PO BID #60 tab Ranitidine HCl [Zantac] 150 mg PO BID #60 tab Discontinued Insulin NPH/Reg Insulin 70/30 [humuLIN 70/30 VIAL] See Protocol SQ AC-TID Discharge Medication List Acetaminophen Tab [Tylenol] 650 mg PO Q6HR PRN #30 tab 09/21/17 [Rx] Albuterol Inhaler [Ventolin Hfa Inhaler] 1 - 2 puff INHALATION Q6HR PRN #1 inhaler 09/21/17 [Rx] Calcium Acetate [PhosLo] 667 mg PO TID-W/MEALS #90 cap 09/21/17 [Rx] Cefuroxime Axetil [Ceftin] 500 mg PO BID #14 tab 09/21/17 [Rx] Darbepoetin Vikash [Aranesp] 40 mcg SQ Q7D #2 syringe 09/21/17 [Rx] Furosemide [Lasix] 80 mg PO BID@0900,1600 #60 tab 09/21/17 [Rx] Lisinopril [Zestril] 20 mg PO DAILY #30 tab 09/21/17 [Rx] Metoprolol Tartrate [Lopressor] 50 mg PO BID PRN #60 tab 09/21/17 [Rx] Ranitidine HCl [Zantac] 150 mg PO BID #60 tab 09/21/17 [Rx] Sodium Bicarbonate Tab 650 mg PO BID #60 tab 09/21/17 [Rx] amLODIPine [Norvasc] 10 mg PO DAILY #30 tab 09/21/17 [Rx] hydrALAZINE HCL [Apresoline] 100 mg PO QID PRN #120 tab 09/21/17 [Rx] sitaGLIPtin PHOSPHATE [Januvia] 25 mg PO DAILY #30 tab 09/21/17 [Rx] Follow up Appointment(s)/Referral(s): [facility], [NON-STAFF] - 1 Week Hayden Cervantes MD [REFERRING] - 1 Week (New pt) None,Stated [Primary Care Provider] - 1-2 days Activity/Diet/Wound Care/Special Instructions: wants new PCP-Dr Cervantes hemo-Dialysis -# PT schedule is Monday, , and Monday at 11: 15 please show up at the office on Monday at 10:45 for the first visit for paperwork and introductions.
[2017-09-21] MEDS ORDERED: CARVEDILOL 6.25 MG TAB PO STA (15:00)
[2017-09-21 15:25] VITALS: BP 185/86; TEMP 98.2
[2017-09-21 16:26] VITALS: PULSE 102
== END 2017-09-21 16:57 | disposition home health service (06) | DRG 682 ==
LOC: EC 21:35 → 6SEL 22:02 → 5MS5E 09-14 01:54
PROVIDERS: ADMIT Internal Medicine; ATTEND Internal Medicine
PROC: 02H633Z Insertion of Infusion Device into Right Atrium, Percutaneous Approach (ICD-10-PCS; 2017-09-16)
PROC: 5A1D70Z Performance of Urinary Filtration, Intermittent, Less than 6 Hours Per Day (ICD-10-PCS; 2017-09-18)
PROC: 0TB13ZX Excision of Left Kidney, Percutaneous Approach, Diagnostic (ICD-10-PCS; principal; 2017-09-19)
PROC: 5A1D70Z Performance of Urinary Filtration, Intermittent, Less than 6 Hours Per Day (ICD-10-PCS; 2017-09-19)
PROC: 5A1D70Z Performance of Urinary Filtration, Intermittent, Less than 6 Hours Per Day (ICD-10-PCS; 2017-09-21)
DX: N17.0 Acute kidney failure with tubular necrosis (principal); J18.9 Pneumonia, unspecified organism; I13.2 Hypertensive heart and chronic kidney disease with heart failure and with stage 5 chronic kidney disease, or end stage renal disease; E87.2 Acidosis; E11.21 Type 2 diabetes mellitus with diabetic nephropathy; E11.22 Type 2 diabetes mellitus with diabetic chronic kidney disease; E11.65 Type 2 diabetes mellitus with hyperglycemia; E87.5 Hyperkalemia; E83.39 Other disorders of phosphorus metabolism; E87.70 Fluid overload, unspecified; E86.9 Volume depletion, unspecified; N18.6 End stage renal disease; R09.02 Hypoxemia; E61.1 Iron deficiency; K21.9 Gastro-esophageal reflux disease without esophagitis; K29.70 Gastritis, unspecified, without bleeding; T39.395A Adverse effect of other nonsteroidal anti-inflammatory drugs [NSAID], initial encounter; D63.1 Anemia in chronic kidney disease; Z91.11 Patient's noncompliance with dietary regimen; Z99.2 Dependence on renal dialysis; Z87.891 Personal history of nicotine dependence; Z79.4 Long term (current) use of insulin
CPT/HCPCS: 36558; 71045; 71046; 76770; 76937; 77001; 77012; 80048; 80053; 81001; 82570; 82728; 83036; 83540; 83550; 83735; 84100; 84156; 84165; 84484; 85025; 85027; 85610; 86038; 86160; 86162; 86225; 86255; 86334; 86335; 86705; 86706; 86850; 86900; 86901; 87340; 90935; 93306; 94640; 94760; 99285

== ENCOUNTER 2017-09-28 14:58 | Inpatient (IN) | payer OTHER ==
[2017-09-28 17:35] LABS: Glucose,Whole Blood 170 mg/dL (75-99)
[2017-09-28] MEDS ORDERED: NALOXONE 0.4 MG/ML 1 ML VIAL IV PRN (18:02)
[2017-09-28] MEDS ORDERED: traMADol 50 MG TAB PO PRN (18:02)
--- NOTE | 2017-09-28 18:17 | P.HPIM ---
History of Present Illness 57-year-old pleasant gentleman was recently discharged from the hospital comes back again after he was transferred from [facility] and he presented to [facility] with complaints of generalized weakness tiredness and low hemoglobin of 6.9 when he was discharged from this hospitalization was 10.9. Patient denied any hematemesis much easier GI bleed or dark stools. Patient denied any abdominal pain and patient's stool occult blood was negative at [facility]. Patient will be transfused 1 unit of blood. There was another concern that patient has a pleural effusion on the right side along with pneumonic process of right-sided. Patient was recently treated for pneumonia. And his pneumonic infiltrate is expected and doesn't mean Pneumonia as radiological resolution takes about 8 weeks. I did review the images from [facility] patient actually had improvement in his right- sided pleural effusion and pneumonic infiltrate. Patient doesn't have any pneumonia patient doesn't have any fever doesn't have any leukocytosis. During his last hospitalization patient was started on hemodialysis, expected to be converted to peritoneal dialysis. Patient's present creatinine is around 2.2 area Review of Systems REVIEW OF SYSTEMS: CONSTITUTIONAL: As mentioned in HPI HEENT: No recent visual problems or hearing problems. Denied any sore throat. CARDIOVASCULAR: No chest pain, orthopnea, PND, no palpitations, no syncope. PULMONARY: No shortness of breath, no cough, no hemoptysis. GASTROINTESTINAL: No diarrhea, no nausea, no vomiting, no abdominal pain. Normoactive bowel sounds. NEUROLOGICAL: No headaches, no weakness, no numbness. HEMATOLOGICAL: Denies any bleeding or petechiae. GENITOURINARY: Denies any burning micturition, frequency, or urgency. MUSCULOSKELETAL/RHEUMATOLOGICAL: Denies any joint pain, swelling, or any muscle pain. ENDOCRINE: Denies any polyuria or polydipsia. The rest of the 14-point review of systems is negative. Past Medical History Past Medical History: Diabetes Mellitus, Renal Disease History of Any Multi-Drug Resistant Organisms: None Reported Past Surgical History: No Surgical Hx Reported Past Psychological History: No Psychological Hx Reported Smoking Status: Former smoker Past Alcohol Use History: None Reported Past Drug Use History: None Reported Medications and Allergies Home Medications Medication Instructions Recorded Confirmed Type Acetaminophen Tab [Tylenol] 650 mg PO Q6HR PRN #30 tab 09/21/17 Rx Albuterol Inhaler [Ventolin Hfa 1 - 2 puff INHALATION Q6HR PRN #1 09/21/17 Rx Inhaler] inhaler Calcium Acetate [PhosLo] 667 mg PO TID-W/MEALS #90 cap 09/21/17 Rx Carvedilol [Coreg] 6.25 mg PO BID #60 tablet 09/21/17 Rx Cefuroxime Axetil [Ceftin] 500 mg PO BID #14 tab 09/21/17 Rx Darbepoetin Vikash [Aranesp] 40 mcg SQ Q7D #2 syringe 09/21/17 Rx Furosemide [Lasix] 80 mg PO BID@0900,1600 #60 tab 09/21/17 Rx Lisinopril [Zestril] 20 mg PO DAILY #30 tab 09/21/17 Rx Metoprolol Tartrate [Lopressor] 50 mg PO BID PRN #60 tab 09/21/17 Rx Ranitidine HCl [Zantac] 150 mg PO BID #60 tab 09/21/17 Rx Sodium Bicarbonate Tab 650 mg PO BID #60 tab 09/21/17 Rx amLODIPine [Norvasc] 10 mg PO DAILY #30 tab 09/21/17 Rx hydrALAZINE HCL [Apresoline] 100 mg PO QID PRN #120 tab 09/21/17 Rx sitaGLIPtin PHOSPHATE [Januvia] 25 mg PO DAILY #30 tab 09/21/17 Rx Allergies Allergy/AdvReac Type Severity Reaction Status Date / Time No Known Allergies Allergy Verified 09/12/17 21:55 Physical Exam Vitals: Vital Signs Temp Pulse Resp BP Pulse Ox 09/28/17 17:40 99.2 F 84 16 146/73 99 PHYSICAL EXAMINATION: GENERAL: The patient is alert and oriented x3, not in any acute distress. Well developed, well nourished. HEENT: Pupils are round and equally reacting to light. EOMI. No scleral icterus. No conjunctival pallor. Normocephalic, atraumatic. No pharyngeal erythema. No thyromegaly. CARDIOVASCULAR: S1 and S2 present. No murmurs, rubs, or gallops. PULMONARY: She does have significant crackles on the right right posterior lung calles. ABDOMEN: Soft, nontender, nondistended, normoactive bowel sounds. No palpable organomegaly. MUSCULOSKELETAL: No joint swelling or deformity. EXTREMITIES: No cyanosis, clubbing, or pedal edema. NEUROLOGICAL: Gross neurological examination did not reveal any focal deficits. SKIN: No rashes. Results Labs: Abnormal Lab Results - Last 24 Hours (Table) 09/28/17 Range/Units 17:35 POC Glucose (mg/dL) 170 H (75-99) mg/dL Assessment and Plan Plan: -Severe fatigue: Secondary to anemia without any acute signs or symptoms of acute GI bleed. We will obtain for the levels considering patient is end-stage renal disease. Patient is receiving darbepoetin alpha on weekly basis. Transfuse 1 unit of blood. We'll [place] and B12 levels -Right-sided pleural effusion: I do not believe patient has a recurrent pneumonia patient will not be started on antibiotics again. His infiltrate is expected to resolve in about 8 weeks. Patient actually has improvement in his pleural effusion and pneumonic infiltrate. We will obtain pulmonary consultation as therapeutic thoracentesis may help his shortness of breath patient was discharged on 2 L of oxygen during his last hospitalization patient does not have any COPD -Diabetes mellitus type 2 I discharge him on Januvia, medications need to be verified after which patient will be restarted on his Januvia. -Hypertension -End-stage renal disease hemodialysis dependent patient is urinating at this time. 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
[2017-09-28 19:52] LABS: Glucose,Whole Blood 245 mg/dL (75-99)
[2017-09-28 21:47] VITALS: PULSE 83
[2017-09-28] MEDS: FAMOTIDINE 20 MG TAB PO SCH (21:52)
[2017-09-28] MEDS: HEPARIN SODIUM,PORCINE 5,000 UNIT/ML 1 ML VIAL SQ SCH (21:52)
--- NOTE | 2017-09-28 23:33 | XR ---
EXAMINATION TYPE: XR chest 2V DATE OF EXAM: 09/28/2017 COMPARISON: 09/16/2017 HISTORY: Right-sided pneumonia TECHNIQUE: Frontal and lateral views of the chest are obtained. FINDINGS: There is blunting of right costophrenic angle. There is dual-lumen right central venous ca theter with tip in the right atrium. Trachea is midline. There is slight blunting of left costophreni c angle. IMPRESSION: There is decrease in right pleural effusion compared to last exam. There is decrease in the pulmonary congestion compared to last exam. Right lower lobe pneumonia is possible.
[2017-09-29 07:18] LABS: Glucose,Whole Blood 97 mg/dL (75-99)
[2017-09-29 07:25] LABS: Basophils # (A) 0.1 k/uL (0-0.2); Basophils % (A) 1 %; Eosinophils # (A) 0.1 k/uL (0-0.7); Eosinophils % (A) 1 %; HCT 24.1 % (39.0-53.0); HGB 8.1 gm/dL (13.0-17.5); Hypochromasia Slight; Lymphocytes # (A) 1.1 k/uL (1.0-4.8); Lymphocytes % (A) 13 %; MCH 28.7 pg (25.0-35.0); MCHC 33.4 g/dL (31.0-37.0); MCV 85.7 fL (80.0-100.0); Monocytes # (A) 0.6 k/uL (0-1.0); Monocytes % (A) 8 %; Neutrophils # (A) 6.1 k/uL (1.3-7.7); Neutrophils % (A) 76 %; Platelet Count 476 k/uL (150-450); Poikilocytosis Slight; RBC 2.81 m/uL (4.30-5.90); RDW 13.6 % (11.5-15.5); WBC 8.1 k/uL (3.8-10.6)
[2017-09-29] MEDS ORDERED: INSULIN ASPART 100 UNIT/ML 1 ML 10 ML VIAL SQ SCH (07:30)
[2017-09-29 07:36] VITALS: BP 140/61; RESP 18; TEMP 97.9
[2017-09-29 07:50] LABS: Albumin 2.5 g/dL (3.5-5.0); Calcium 8.2 mg/dL (8.4-10.2); Potassium 4.5 mmol/L (3.5-5.1); Total Bilirubin 0.2 mg/dL (0.2-1.3)
[2017-09-29] MEDS: FAMOTIDINE 20 MG TAB PO SCH (08:01)
[2017-09-29] MEDS: HEPARIN SODIUM,PORCINE 5,000 UNIT/ML 1 ML VIAL SQ SCH (08:01)
[2017-09-29] MEDS ORDERED: ACETAMINOPHEN TAB 325 MG TAB PO PRN (10:10)
[2017-09-29] MEDS ORDERED: ALBUTEROL NEBULIZED 2.5 MG/3 ML INHALATION PRN (10:10)
[2017-09-29] MEDS ORDERED: amLODIPine 10 MG TAB PO SCH (10:15)
[2017-09-29] MEDS ORDERED: FAMOTIDINE 20 MG TAB PO SCH (10:15)
[2017-09-29] MEDS ORDERED: CEFDINIR 300 MG CAP PO SCH (10:15)
[2017-09-29] MEDS ORDERED: CARVEDILOL 6.25 MG TAB PO SCH (10:15)
[2017-09-29] MEDS ORDERED: SODIUM BICARBONATE TAB 650 MG TAB PO SCH (10:15)
[2017-09-29] MEDS ORDERED: LINAGLIPTIN 5 MG TABLET PO SCH (10:15)
[2017-09-29 10:47] VITALS: BMI 27.2
--- NOTE | 2017-09-29 11:02 | P.DS ---
Providers Date of admission: 09/28/17 16:51 Attending physician: Kun Vinson Consults: 09/28/17 18:05 Consult Physician Routine Consulting Provider: Mayank Turpin Consult Reason/Comments: Right sided pleural effusion Do you want consulting provider notified?: Yes Consult Physician Routine Consulting Provider: Angle Yates Consult Reason/Comments: esrd Do you want consulting provider notified?: Yes Primary care physician: Stated None Hospital Course: Patient is a known patient to me was sent in here because of low hemoglobin fatigue. Patient's hemoglobin is around 7.5 discharged hemoglobin about a week ago was 8.2. Patient received one year the blood transfusion patient will receive erythropoietin injection at dialysis facility. Patient the is a recent hemodialysis patient which will be subsequently switched to peritoneal dialysis. The other concern is possible worsening of pneumonia. Patient does have pneumonic infiltrate and pleural effusion on the right side. The infiltrate is actually better compared to last time. I do not believe patient has any recurrence of pneumonia. Patient was requiring oxygen upon not discharged last time we'll see if he required oxygen again. Patient is not requiring Lasix, metoprolol, hydralazine all of which will be discontinued. Patient shouldn't be on 2 beta blockers patient is already on Coreg. Patient is being evaluated by pulmonary for possible drainage of the right pleural effusion. After the pleural tap if he requires patient will be discharged home. Patient was discharged on Januvia because of his extensive medication and patient's lack of insurance patient started taking his 70/30 insulin with which his blood sugars are well under control and patient will be discharged today on the same regimen as his home regimen. PHYSICAL EXAMINATION: GENERAL: The patient is alert and oriented x3, not in any acute distress. Well developed, well nourished. HEENT: Pupils are round and equally reacting to light. EOMI. No scleral icterus. No conjunctival pallor. Normocephalic, atraumatic. No pharyngeal erythema. No thyromegaly. CARDIOVASCULAR: S1 and S2 present. No murmurs, rubs, or gallops. PULMONARY: She does have significant crackles on the right right posterior lung calles. ABDOMEN: Soft, nontender, nondistended, normoactive bowel sounds. No palpable organomegaly. MUSCULOSKELETAL: No joint swelling or deformity. EXTREMITIES: No cyanosis, clubbing, or pedal edema. NEUROLOGICAL: Gross neurological examination did not reveal any focal deficits. SKIN: No rashes. Assessment and Plan Plan: -Severe fatigue: Secondary to anemia without any acute signs or symptoms of acute GI bleed. Patient's ferritin level during last hospitalization was 900 and patient will receive erythropoietin supplementation at hemodialysis center. -Right-sided pleural effusion: I do not believe patient has a recurrent pneumonia patient completed antibiotic course. After evaluation by pulmonary requires pleural tap that procedure will be done and patient will be subsequently discharged -Diabetes mellitus type 2 -Hypertension -End-stage renal disease hemodialysis dependent patient is urinating at this time. 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 for which patient is on calcium acetate -Gastroesophageal reflux disease Plan - Discharge Summary Discharge Rx Participant: Yes New Discharge Prescriptions: Discontinued sitaGLIPtin PHOSPHATE [Januvia] 25 mg PO DAILY #30 tab Furosemide [Lasix] 80 mg PO BID@0900,1600 #60 tab hydrALAZINE HCL [Apresoline] 100 mg PO QID PRN #120 tab PRN Reason: Blood Pressure - High Metoprolol Tartrate [Lopressor] 50 mg PO BID PRN #60 tab PRN Reason: Blood Pressure - High No Action Cefuroxime Axetil [Ceftin] 500 mg PO BID #14 tab Acetaminophen Tab [Tylenol] 650 mg PO Q6HR PRN #30 tab PRN Reason: Mild Pain Or Fever > 100.5 amLODIPine [Norvasc] 10 mg PO DAILY #30 tab Calcium Acetate [PhosLo] 667 mg PO TID-W/MEALS #90 cap Darbepoetin Vikash [Aranesp] 40 mcg SQ Q7D #2 syringe Lisinopril [Zestril] 20 mg PO DAILY #30 tab Sodium Bicarbonate Tab 650 mg PO BID #60 tab Ranitidine HCl [Zantac] 150 mg PO BID #60 tab Carvedilol [Coreg] 6.25 mg PO BID #60 tablet Albuterol Inhaler [Ventolin Hfa Inhaler] 2 puff INHALATION RT-Q6H PRN PRN Reason: Shortness Of Breath Or Wheezing Discharge Medication List Acetaminophen Tab [Tylenol] 650 mg PO Q6HR PRN #30 tab 09/21/17 [Rx] Calcium Acetate [PhosLo] 667 mg PO TID-W/MEALS #90 cap 09/21/17 [Rx] Carvedilol [Coreg] 6.25 mg PO BID #60 tablet 09/21/17 [Rx] Cefuroxime Axetil [Ceftin] 500 mg PO BID #14 tab 09/21/17 [Rx] Darbepoetin Vikash [Aranesp] 40 mcg SQ Q7D #2 syringe 09/21/17 [Rx] Lisinopril [Zestril] 20 mg PO DAILY #30 tab 09/21/17 [Rx] Ranitidine HCl [Zantac] 150 mg PO BID #60 tab 09/21/17 [Rx] Sodium Bicarbonate Tab 650 mg PO BID #60 tab 09/21/17 [Rx] amLODIPine [Norvasc] 10 mg PO DAILY #30 tab 09/21/17 [Rx] Albuterol Inhaler [Ventolin Hfa Inhaler] 2 puff INHALATION RT-Q6H PRN 09/28/17 [ History] Patient Instructions/Handouts: Pleural Effusion (DC), Anemia (DC) Discharge Disposition: HOME SELF-CARE
[2017-09-29] MEDS ORDERED: LIDOCAINE 1% INJ 10MG/ML (20 ML MDV) SQ ONE (11:03)
[2017-09-29 11:30] LABS: Glucose,Whole Blood 175 mg/dL (75-99)
--- NOTE | 2017-09-29 11:48 | XR ---
EXAMINATION TYPE: XR chest 1V portable DATE OF EXAM: 09/29/2017 COMPARISON: 09/28/2017 HISTORY: Postthoracentesis TECHNIQUE: Single frontal view of the chest is obtained. FINDINGS: Small right pleural effusion and basilar consolidation. No sizable pneumothorax. Right-margot ed dialysis catheter. Heart size stable. Tiny left effusion with basilar atelectasis or infiltrate st able. IMPRESSION: 1. Bilateral consolidation and pleural effusion with no evidence of pneumothorax postthoracentesis.
[2017-09-29 11:53] LABS: Total Protein 5.1 g/dL (6.3-8.2)
--- NOTE | 2017-09-29 12:10 | P.CNPUL ---
History of Present Illness Consult date: 09/29/17 Reason for consult: pleural effusion History of present illness: A 57-year-old male patient who is currently receiving hemodialysis via a permacath in his right IJ for dialysis-dependent renal failure in addition to history of diabetes mellitus and hypertension, transferred from [facility] because of generalized weakness, and low hemoglobin of 6.9. Note that the patient was in the hospital approximately a week ago and he was discharged from the hospital on 09/21/2017 after being treated for a right lung pneumonia. Note that at that time the patient was also noted to have a right-sided pleural effusion. He was given antibiotics and he was discharged home. Follow- up chest x-ray during this current admission shows a persistent right-sided pleural effusion which is less in volume compared to the previous chest x-ray however this is significant enough for it to be drained as the patient is having some exertional dyspnea. No pleurisy. No chest pain. No fever or chills. I performed a bedside thoracentesis and a total of 800 mL of pleural fluid is removed from the right lung. The post procedure chest x-ray shows some residual atelectatic change in the right lung and there may be some residual located pleural effusion with right hemithorax. Yet for the most part , the chest x-ray findings improved considerably post thoracentesis. No leukocytosis. He is quite stable and he is not toxic looking. The pleural fluid was turbid yellowish in color and there was no evidence of any empyema. The patient has no history of congestion heart failure and his echocardiogram shows a preserved LV function. Review of Systems Constitutional: Reports fatigue, Reports weakness Eyes: denies blurred vision, denies bulging eye, denies decreased vision Ears: deny: decreased hearing, ear discharge, earache, tinnitus Ears, nose, mouth and throat: Denies headache, Denies sore throat Cardiovascular: Reports decreased exercise tolerance, Reports dyspnea on exertion, Reports shortness of breath Respiratory: Reports cough, Reports dyspnea Gastrointestinal: Denies abdominal pain, Denies diarrhea, Denies nausea, Denies vomiting Genitourinary: Reports as per HPI Musculoskeletal: Denies myalgias Musculoskeletal: absent: ankle pain, ankle stiffness, ankle swelling Integumentary: Denies pruritus, Denies rash Neurological: Denies numbness, Denies weakness Psychiatric: Reports as per HPI Endocrine: Reports as per HPI Hematologic/Lymphatic: Reports as per HPI Allergic/Immunologic: Reports as per HPI Past Medical History Past Medical History: Diabetes Mellitus, GERD/Reflux, Pneumonia, Renal Disease Additional Past Medical History / Comment(s): End stage renal disease currently on hemodialysis, diabetes mellitus, hypertension, acid reflux and recent hospitalization for right lung pneumonia and parapneumonic effusion. 11 History of Any Multi-Drug Resistant Organisms: None Reported Past Surgical History: Hernia Repair Additional Past Surgical History / Comment(s): umb hernia repair/mesh, rt upper chest dialysis cath Past Anesthesia/Blood Transfusion Reactions: No Reported Reaction Additional Past Anesthesia/Blood Transfusion Reaction / Comment(s): clausterphobia Smoking Status: Former smoker - Past Family History Mother Family Medical History: No Reported History Additional Family Medical History / Comment(s): alive healthy age 82 Father Family Medical History: Diabetes Mellitus, Liver Disease, Renal Disease Additional Family Medical History / Comment(s): kidney/liver failure Medications and Allergies Home Medications Medication Instructions Recorded Confirmed Type Acetaminophen Tab [Tylenol] 650 mg PO Q6HR PRN #30 tab 09/21/17 09/28/17 Rx Calcium Acetate [PhosLo] 667 mg PO TID-W/MEALS #90 cap 09/21/17 09/28/17 Rx Carvedilol [Coreg] 6.25 mg PO BID #60 tablet 09/21/17 09/28/17 Rx Cefuroxime Axetil [Ceftin] 500 mg PO BID #14 tab 09/21/17 09/28/17 Rx Darbepoetin Vikash [Aranesp] 40 mcg SQ Q7D #2 syringe 09/21/17 09/28/17 Rx Lisinopril [Zestril] 20 mg PO DAILY #30 tab 09/21/17 09/28/17 Rx Ranitidine HCl [Zantac] 150 mg PO BID #60 tab 09/21/17 09/28/17 Rx Sodium Bicarbonate Tab 650 mg PO BID #60 tab 09/21/17 09/28/17 Rx amLODIPine [Norvasc] 10 mg PO DAILY #30 tab 09/21/17 09/28/17 Rx Albuterol Inhaler [Ventolin Hfa 2 puff INHALATION RT-Q6H PRN 09/28/17 09/28/17 History Inhaler] Allergies Allergy/AdvReac Type Severity Reaction Status Date / Time No Known Allergies Allergy Verified 09/28/17 18:51 Physical Exam Vitals: Vital Signs Temp Pulse Resp BP Pulse Ox 09/29/17 08:30 83 18 09/29/17 07:15 97.9 F 83 18 140/61 92 L 09/29/17 00:00 83 16 09/28/17 21:46 99.1 F 83 16 137/66 95 09/28/17 17:40 99.2 F 84 16 146/73 99 Intake and Output 09/28/17 09/29/17 09/29/17 22:59 06:59 14:59 Intake Total 830 60 240 Balance 830 60 240 Intake: Oral 830 60 240 Other: Voiding Method Urinal Urinal # Voids 200 Weight 79 kg 79 kg GENERAL: The patient is alert and oriented x3, not in any acute distress. Well developed, well nourished. Head exam was generally normal. There was no scleral icterus or corneal arcus. Mucous membranes were moist. HEENT: Pupils are round and equally reacting to light. EOMI. No scleral icterus. No conjunctival pallor. Normocephalic, atraumatic. No pharyngeal erythema. No thyromegaly. CARDIOVASCULAR: S1 and S2 present. No murmurs, rubs, or gallops. PULMONARY: She does have significant crackles on the right right posterior lung calles. There is also dullness to percussion and diminished breath on the right lung base. ABDOMEN: Soft, nontender, nondistended, normoactive bowel sounds. No palpable organomegaly. MUSCULOSKELETAL: No joint swelling or deformity. EXTREMITIES: No cyanosis, clubbing, or pedal edema. NEUROLOGICAL: Gross neurological examination did not reveal any focal deficits. SKIN: Examination of the skin revealed no evidence of significant rashes, suspicious appearing nevi or other concerning lesions. Results - Laboratory Findings CBC and BMP: 09/29/17 06:31 09/29/17 06:31 Abnormal lab findings: Abnormal Labs 09/28/17 09/28/17 09/29/17 17:35 19:51 06:31 RBC 2.81 L Hgb 8.1 L Hct 24.1 L Plt Count 476 H Chloride BUN Creatinine POC Glucose (mg/dL) 170 H 245 H Calcium Alkaline Phosphatase Total Protein Albumin 09/29/17 09/29/1718 06:31 06:31 11:29 RBC Hgb Hct Plt Count Chloride 97 L BUN 35 H Creatinine 4.86 H POC Glucose (mg/dL) 175 H Calcium 8.2 L Alkaline Phosphatase 189 H Total Protein 5.0 L 5.1 L Albumin 2.5 L - Diagnostic Findings Chest x-ray: image reviewed Assessment and Plan Plan: Assessment 1 parapneumonic right-sided pleural effusion, somewhat loculated, the patient underwent a thoracentesis and a total of 800 mL of pleural fluid was aspirated from the right lung. The post procedure chest x-ray shows some residual loculated fluid within the right hemithorax and some atelectatic changes in the right lung base. No evidence of any pneumothorax. 2 shortness of breath partly related to shortness of breath and the patient's chronic anemia is also contributing to the patient's dyspnea. 3 chronic fatigue 4 chronic anemia, related to end-stage renal disease, anemia posttransfusion 1 unit of packed RBC 5 diabetes mellitus type 2 6 hypertension 7 acid reflux Plan The thoracentesis was performed without any complications. The fluid will be sent for microbial analysis and cultures. We'll also check for pleural fluid LDH and protein although I think that this is most like an exudate. The patient can be discharged home. Recommended follow up chest x-ray on outpatient basis regarding the right lung parapneumonic effusion. He should be able to go home today to be followed up in the office.
--- NOTE | 2017-09-29 12:29 | PCN ---
PROCEDURE NOTE RIGHT THORACENTESIS NOTE: PREOPERATIVE DIAGNOSIS: Right-sided pleural effusion. POSTOPERATIVE DIAGNOSIS: Right-sided pleural effusion. A time-out was completed verifying correct patient, procedure, site, positioning , and implant (s) or special equipment if applicable. Ultrasound guidance was/was not used and appropriate fluid pocket was identified and marked. Patient was positioned, prepped and draped in usual sterile fashion. Lidocaine was used to anesthetize the area. A Thoracentesis catheter was introduced into the pleural space and fluid was removed. Blood loss was none. A chest x-ray was ordered to evaluate for pneumothorax. TOTAL FLUID REMOVED: 800 mL. COLOR OF FLUID: Turbid, yellowish pleural fluid. Patient tolerated the procedure well and there were no bedside complications. Chest x-ray is to follow. MMODL / IJN: [id number] /
[2017-09-29] MEDS ORDERED: CALCIUM ACETATE 667 MG CAP PO SCH (12:30)
[2017-09-29 13:01] LABS: Appearance,BF Hazy; Nucleated Cells, Body Fluid 72 /uL; RBC, Body Fluid 202 /uL
[2017-09-29 13:03] LABS: Mononuclear WBC,Body Fluid 94 %; Polynuclear WBC,Body Fluid 6 %; Total Cells Counted,Body Fluid 100
[2017-09-29 13:23] LABS: Hemoglobin A1C 6.6 % (4.0-6.0)
[2017-09-29 15:46] LABS: Total Protein, Body Fluid 3300 mg/dL
--- NOTE | 2017-09-29 19:59 | CONS ---
CONSULTATION REASON FOR CONSULT: Acute kidney injury, currently hemodialysis dependent. HISTORY OF PRESENT ILLNESS: Patient is a 57-year-old male who was recently started on hemodialysis. His on the last admission. He is currently dialyzing out of [facility]. He was just discharged on 09/21/2017. Patient received about 3 treatments of dialysis as outpatient. He was sent in as his hemoglobin was 7 g/dL. Stool for occult blood was negative. The patient has not received any packed RBCs transfusion. His repeat hemoglobin was at 8.1. He has not had any active bleeding. The patient is normally maintained on a Monday, , Monday schedule. He has not had any erythrocyte- stimulating agents at the dialysis unit so far. The patient denies any chest pains or shortness of breath. He was also found to have pleural effusion. He had pneumonia on his last admission and this is thought to be related to his recent pneumonia. The patient will be evaluated by Pulmonary and if there is no further need for any intervention, he may most likely be discharged. PAST MEDICAL HISTORY: End-stage renal disease, recently started on dialysis with kidney biopsy showing significant chronic changes. The patient will be possibly transitioning to PD. Type 2 diabetes, recent pneumonia, CKD, mineral bone disorder. PAST SURGICAL HISTORY: Hernia repair, dialysis catheter placement. SOCIAL HISTORY: Positive for smoking. No history of current smoking. No history of drug abuse or alcohol abuse. MEDICATIONS: Prior to admission included Coreg, PhosLo, Ceftin, Zestril, Zantac, Aranesp, sodium bicarb, Norvasc. ALLERGIES: None. EXAMINATION: Currently patient is comfortable, awake, not in any acute distress. Alert and oriented x3. Blood pressure is 140/61, heart rate 83 per minute. He is afebrile. Examination of the heart: S1, S2. Examination lungs: Bilateral breath sounds are heard. Abdomen is soft, nontender. Examination lower extremity shows no significant edema. CERTIFIED CYTOTECHNOLOGIST exam is grossly intact. LABS: Show sodium 137, potassium 4.5, hemoglobin was 8.1 g/dL, calcium 8.2. ASSESSMENT: 1. End-stage renal disease, recently started on dialysis on last admission. Kidney biopsy showed significant chronic changes. The patient will be possibly transition to PD as outpatient. 2. Anemia with no active bleeding noted and stool for occult blood being negative. The patient did not receive packed RBCs transfusion. He can be discharged. We will continue to maintain him on erythrocyte-stimulating agents as outpatient. 3. Right pleural effusion, mostly parapneumonic from last admission with pneumonia on the last admission. Awaiting Pulmonary consultation. Thank you for this consultation. We will continue to follow the patient with you during his hospitalization. MMODL / IJN: [id number] /
== END 2017-09-29 12:00 | disposition home or self-care (01) | DRG 186 ==
LOC: 5MS5E 16:51
PROVIDERS: ADMIT Internal Medicine; ATTEND Internal Medicine
PROC: 0W993ZX Drainage of Right Pleural Cavity, Percutaneous Approach, Diagnostic (ICD-10-PCS; principal; 2017-09-29)
DX: J90 Pleural effusion, not elsewhere classified (principal); N18.6 End stage renal disease; I12.0 Hypertensive chronic kidney disease with stage 5 chronic kidney disease or end stage renal disease; D63.1 Anemia in chronic kidney disease; E11.22 Type 2 diabetes mellitus with diabetic chronic kidney disease; E83.89 Other disorders of mineral metabolism; K21.9 Gastro-esophageal reflux disease without esophagitis; Z79.84 Long term (current) use of oral hypoglycemic drugs; Z79.899 Other long term (current) drug therapy; Z99.2 Dependence on renal dialysis; Z87.891 Personal history of nicotine dependence; Z87.01 Personal history of pneumonia (recurrent); Z83.3 Family history of diabetes mellitus; Z84.1 Family history of disorders of kidney and ureter; Z84.89 Family history of other specified conditions
CPT/HCPCS: 71045; 71046; 80053; 82607; 82728; 82945; 83036; 83615; 84155; 84157; 85025; 87070; 87205; 88108; 88305; 89050

== ENCOUNTER 2020-07-17 13:27 | Inpatient (IN) | payer OTHER, MEDICARE ==
[2020-07-17] MEDS ORDERED: DIPH,PERTUS(ACELL)TETVAC-LF 0.5 ML VIAL IM ONE (13:29)
[2020-07-17 13:53] LABS: Basophils # (A) 0.1 k/uL (0-0.2); Basophils % (A) 1 %; Eosinophils # (A) 0.3 k/uL (0-0.7); Eosinophils % (A) 3 %; HCT 33.2 % (39.0-53.0); HGB 11.3 gm/dL (13.0-17.5); Lymphocytes # (A) 1.1 k/uL (1.0-4.8); Lymphocytes % (A) 12 %; MCH 31.7 pg (25.0-35.0); MCV 93.3 fL (80.0-100.0); Mean Platelet Volume 7.3; Monocytes # (A) 0.6 k/uL (0-1.0); Monocytes % (A) 6 %; Neutrophils # (A) 7.3 k/uL (1.3-7.7); Neutrophils % (A) 78 %; Platelet Count 361 k/uL (150-450); RBC 3.56 m/uL (4.30-5.90); WBC 9.4 k/uL (3.8-10.6)
--- NOTE | 2020-07-17 13:54 | XR ---
EXAMINATION TYPE: XR pelvis AP view DATE OF EXAM: 07/17/2020 CLINICAL HISTORY: pain TECHNIQUE: Single view the pelvis is submitted. FINDINGS: No evidence for fracture, dislocation or bony lesion. Joint spaces are well-preserved. S I joints appear symmetric. IMPRESSION: 1. No acute fracture or dislocation seen. ICD 10 NO FRACTURE, INITIAL EVALUATION
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
[2020-07-17 14:01] LABS: ALT 24 U/L (4-49); AST 48 U/L (17-59); Albumin 4.5 g/dL (3.5-5.0); Alcohol <10 mg/dL; Alkaline Phosphatase 111 U/L (38-126); Anion Gap 15 mmol/L; Blood Urea Nitrogen 41 mg/dL (9-20); Calcium 9.3 mg/dL (8.4-10.2); Carbon Dioxide 30 mmol/L (22-30); Chloride 97 mmol/L (98-107); Glucose 149 mg/dL (74-99); Potassium 4.5 mmol/L (3.5-5.1); Sodium 142 mmol/L (137-145); Total Bilirubin 0.7 mg/dL (0.2-1.3); Total Protein 7.2 g/dL (6.3-8.2)
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
[2020-07-17 14:05] LABS: African American GFR (CKD) 7 (>60 ml/min/1.73 sqM); Non-African American GFR(CKD) 6 (>60 ml/min/1.73 sqM)
[2020-07-17] MEDS ORDERED: HYDROmorphone 0.5 MG/0.5 ML SYRINGE IVP STA (14:11)
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
[2020-07-17 14:21] LABS: Partial Thromboplastin Time 23.7 sec (22.0-30.0); Prothrombin Time 10.7 sec (9.0-12.0)
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
--- NOTE | 2020-07-17 14:53 | XR ---
EXAMINATION TYPE: XR forearm LT DATE OF EXAM: 07/17/2020 CLINICAL HISTORY: pain TECHNIQUE: Frontal and lateral images of the left forearm are obtained. COMPARISON: None. FINDINGS: Comminuted and displaced fracture through the middle one third of the left ulna. Displaceme nt of approximately 6.5 mm. No additional fractures identified within the [id number]. Vascular valentino cifications identified. IMPRESSION: Ulnar fracture as noted
[2020-07-17] MEDS ORDERED: HYDROmorphone 1 MG/ML 1 ML SYRINGE IVP STA (15:07)
[2020-07-17] MEDS ORDERED: NALOXONE 0.4 MG/ML 1 ML VIAL IV PRN (15:41)
[2020-07-17] MEDS ORDERED: ACETAMINOPHEN TAB 325 MG TAB PO PRN (15:41)
[2020-07-17] MEDS ORDERED: ONDANSETRON 4 MG/2 ML VIAL IVP PRN (15:47)
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
[2020-07-17 17:26] LABS: Glucose,Whole Blood 144 mg/dL (75-99)
[2020-07-17] MEDS: HYDROmorphone 1 MG/ML 1 ML SYRINGE IVP PRN ×2 (18:02→20:52)
--- NOTE | 2020-07-17 18:21 | XR ---
Result: History: Pain. Comparison: None available. Technique: 3 views of the right ankle. Findings: There is nondisplaced fracture of the medial malleolus with overlying soft tissue edema. The ankle mo rtise is congruent. Atherosclerotic calcifications and mild degenerative changes are seen. Impression: Medial malleolus fracture.
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
[2020-07-17] MEDS ORDERED: ALBUTEROL HFA INHALER INHALATION PRN (19:18)
[2020-07-17] MEDS: FUROSEMIDE 80 MG TAB PO SCH (20:53)
[2020-07-17] MEDS: carvediloL 12.5 MG TAB PO SCH (20:53)
[2020-07-18] MEDS: HYDROmorphone 1 MG/ML 1 ML SYRINGE IVP PRN ×4 (00:06→10:53)
--- NOTE | 2020-07-18 03:43 | XR ---
EXAMINATION TYPE: XR elbow complete LT DATE OF EXAM: 07/17/2020 COMPARISON: NONE HISTORY: Pain. Trauma. TECHNIQUE: 3 views FINDINGS: Exam limited by the positioning. I see no fracture nor dislocation. There is a small spur o n the olecranon process of the ulna. There is no sign of joint effusion. There are apparent surgical clips at the antecubital fossa. There is vascular calcification. IMPRESSION: No acute bony abnormality. No fracture seen. Limited exam.
[2020-07-18 07:04] LABS: Glucose,Whole Blood 133 mg/dL (75-99)
[2020-07-18] MEDS: ALBUTEROL HFA INHALER INHALATION PRN (07:18)
[2020-07-18] MEDS: PANTOPRAZOLE 40 MG TABLET PO SCH (08:13)
[2020-07-18] MEDS: CALCIUM ACETATE 667 MG TAB PO SCH ×3 (08:13→18:05)
[2020-07-18 08:37] LABS: Basophils # (A) 0.1 k/uL (0-0.2); Basophils % (A) 1 %; Eosinophils # (A) 0.2 k/uL (0-0.7); Eosinophils % (A) 2 %; HCT 29.8 % (39.0-53.0); HGB 10.1 gm/dL (13.0-17.5); Lymphocytes # (A) 0.8 k/uL (1.0-4.8); Lymphocytes % (A) 8 %; MCV 94.2 fL (80.0-100.0); Mean Platelet Volume 7.7; Monocytes # (A) 0.8 k/uL (0-1.0); Monocytes % (A) 8 %; Neutrophils # (A) 7.7 k/uL (1.3-7.7); Neutrophils % (A) 79 %; Platelet Count 295 k/uL (150-450); RBC 3.17 m/uL (4.30-5.90); WBC 9.6 k/uL (3.8-10.6)
[2020-07-18 08:51] LABS: ALT 26 U/L (4-49); AST 51 U/L (17-59); African American GFR (CKD) 6 (>60 ml/min/1.73 sqM); Albumin 4.4 g/dL (3.5-5.0); Albumin/Globulin Ratio 1.7; Alkaline Phosphatase 95 U/L (38-126); Anion Gap 17 mmol/L; Blood Urea Nitrogen 51 mg/dL (9-20); Calcium 9.2 mg/dL (8.4-10.2); Carbon Dioxide 27 mmol/L (22-30); Chloride 95 mmol/L (98-107); Globulin 2.6 g/dL; Glucose 144 mg/dL (74-99); Non-African American GFR(CKD) 5 (>60 ml/min/1.73 sqM); Sodium 139 mmol/L (137-145); Total Bilirubin 0.8 mg/dL (0.2-1.3)
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
[2020-07-18] MEDS: ATORVASTATIN 20 MG TAB PO SCH (10:55)
[2020-07-18] MEDS: carvediloL 12.5 MG TAB PO SCH ×2 (10:55→20:38)
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
[2020-07-18] MEDS ORDERED: BUPIVACAIN-EPI 0.25%-1:200,000 30 ML VIAL INTRAARTIC ONE (11:31)
[2020-07-18] MEDS: amLODIPine 10 MG TAB PO SCH (11:45)
[2020-07-18] MEDS: FUROSEMIDE 80 MG TAB PO SCH ×2 (11:45→20:38)
[2020-07-18] MEDS: LORATADINE 10 MG TAB PO SCH (11:46)
[2020-07-18] MEDS: lisinopriL 20 MG TAB PO SCH (11:46)
[2020-07-18] MEDS ORDERED: SUCCINYLCHOLINE CHLORIDE 100 MG/5 ML SYR IV ONE (12:00)
[2020-07-18] MEDS ORDERED: PROPOFOL 10 MG/ML 20 ML VIAL IV ONE (12:00)
[2020-07-18] MEDS ORDERED: MIDAZOLAM 2 MG/2 ML VIAL ONE (12:00)
[2020-07-18] MEDS ORDERED: ceFAZolin 1,000 MG VIAL ONE (12:00)
[2020-07-18] MEDS ORDERED: fentaNYL (PF) 50 MCG/ML 2 ML AMP ONE (12:00)
[2020-07-18] MEDS ORDERED: SODIUM CHLORIDE 0.9% 100 ML BAG ONE (12:00)
[2020-07-18] MEDS ORDERED: SODIUM CHLORIDE 0.9% 1,000 ML IV ONE (12:07)
--- NOTE | 2020-07-18 13:24 | P.PN ---
Subjective Progress Note Date: 07/18/20 Patient down for repair of left midshaft ulnar fracture Objective - Vital Signs Vital signs: Vital Signs Temp 98.4 F 07/18/20 07:42 Pulse 71 07/18/20 07:42 Resp 17 07/18/20 07:42 BP 167/78 07/18/20 07:42 Pulse Ox 91 L 07/18/20 07:42 Intake & Output 07/17/20 07/18/20 07/18/20 18:59 06:59 18:59 Output Total 700 Balance -700 Weight 88.451 kg Output: Urine 700 Other: # Voids 0 # Bowel Movements 0 - Labs CBC & Chem 7: 07/18/20 08:15 07/18/20 08:15 Labs: Abnormal Lab Results - Last 24 Hours (Table) 07/17/20 07/17/20 07/17/20 Range/Units 13:45 13:45 13:45 RBC 3.56 L (4.30-5.90) m/uL Hgb 11.3 L (13.0-17.5) gm/dL Hct 33.2 L (39.0-53.0) % Lymphocytes # (1.0-4.8) k/uL Chloride 97 L (98-107) mmol/L BUN 41 H (9-20) mg/dL Creatinine 8.02 H* (0.66-1.25) mg/dL Glucose 149 H (74-99) mg/dL POC Glucose (mg/dL) (75-99) mg/dL Troponin I 0.039 H* (0.000-0.034) ng/mL 07/17/20 07/18/20 07/18/20 Range/Units 17: 07:03 08:15 RBC (4.30-5.90) m/uL Hgb (13.0-17.5) gm/dL Hct (39.0-53.0) % Lymphocytes # (1.0-4.8) k/uL Chloride 95 L (98-107) mmol/L BUN 51 H (9-20) mg/dL Creatinine 9.81 H* (0.66-1.25) mg/dL Glucose 144 H (74-99) mg/dL POC Glucose (mg/dL) 144 H 133 H (75-99) mg/dL Troponin I (0.000-0.034) ng/mL 07/18/20 Range/Units 08:15 RBC 3.17 L (4.30-5.90) m/uL Hgb 10.1 L (13.0-17.5) gm/dL Hct 29.8 L (39.0-53.0) % Lymphocytes # 0.8 L (1.0-4.8) k/uL Chloride (98-107) mmol/L BUN (9-20) mg/dL Creatinine (0.66-1.25) mg/dL Glucose (74-99) mg/dL POC Glucose (mg/dL) (75-99) mg/dL Troponin I (0.000-0.034) ng/mL
--- NOTE | 2020-07-18 14:03 | FL ---
EXAMINATION TYPE: FL guidance operating room, XR forearm LT DATE OF EXAM: 07/18/2020 CLINICAL HISTORY: Left forearm fracture. TECHNIQUE: Fluoroscopy. Intraoperative 2 views left forearm. COMPARISON: Left forearm x-ray from yesterday.. FINDINGS: Fluoroscopic guidance was provided during open reduction internal fixation procedure perfo rmed by orthopedic surgeon. A total of 45 seconds of fluoroscopic time was utilized during the proce dure and 3 spot intraoperative images are acquired. Intraoperative images obtained show placement of fixating plate through this place comminuted fractur e mid shaft level of the ulna. There is improved alignment after reduction and fixation on intraopera tive images saved. IMPRESSION: As Above.
[2020-07-18] MEDS ORDERED: LORazepam 2 MG/ML INJ IV ONE ×3 (14:44→14:49)
[2020-07-18 15:00] LABS: Glucose,Whole Blood 131 mg/dL (75-99)
[2020-07-18] MEDS ORDERED: SENNOSIDES 8.6 MG TAB PO PRN (15:04)
[2020-07-18 16:22] LABS: Glucose,Whole Blood 134 mg/dL (75-99)
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
[2020-07-18 17:59] LABS: ALT 23 U/L (4-49); AST 46 U/L (17-59); African American GFR (CKD) 6 (>60 ml/min/1.73 sqM); Albumin 4.1 g/dL (3.5-5.0); Albumin/Globulin Ratio 1.6; Alkaline Phosphatase 88 U/L (38-126); Anion Gap 18 mmol/L; Blood Urea Nitrogen 56 mg/dL (9-20); Calcium 8.9 mg/dL (8.4-10.2); Carbon Dioxide 24 mmol/L (22-30); Chloride 96 mmol/L (98-107); Globulin 2.6 g/dL; Glucose 142 mg/dL (74-99); Non-African American GFR(CKD) 5 (>60 ml/min/1.73 sqM); Sodium 138 mmol/L (137-145); Total Bilirubin 0.5 mg/dL (0.2-1.3); Total Protein 6.7 g/dL (6.3-8.2)
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
[2020-07-18 21:02] LABS: Glucose,Whole Blood 155 mg/dL (75-99)
[2020-07-19] MEDS: HYDROmorphone 0.5 MG/0.5 ML SYRINGE IVP PRN ×5 (00:58→20:08)
[2020-07-19 06:59] LABS: Glucose,Whole Blood 135 mg/dL (75-99)
[2020-07-19] MEDS: LORATADINE 10 MG TAB PO SCH (07:16)
[2020-07-19] MEDS: ATORVASTATIN 20 MG TAB PO SCH (07:16)
[2020-07-19] MEDS: CALCIUM ACETATE 667 MG TAB PO SCH ×3 (07:16→17:34)
[2020-07-19] MEDS: carvediloL 12.5 MG TAB PO SCH ×2 (07:16→20:08)
[2020-07-19] MEDS: PANTOPRAZOLE 40 MG TABLET PO SCH (07:16)
[2020-07-19] MEDS: FUROSEMIDE 80 MG TAB PO SCH ×2 (07:16→20:08)
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
[2020-07-19] MEDS ORDERED: DARBEPOETIN ALFA 40 MCG/0.4 ML SYRINGE SQ SCH (09:00)
[2020-07-19] MEDS ORDERED: ENOXAPARIN 40 MG/0.4 ML SYRINGE SQ SCH (09:00)
--- NOTE | 2020-07-19 09:37 | XR ---
EXAMINATION TYPE: XR knee complete RT DATE OF EXAM: 07/19/2020 CLINICAL HISTORY: Pain. TECHNIQUE: Three views of the right knee are obtained. COMPARISON: None. FINDINGS: Osseous structures are demineralized. Extensive arterial vascular calcification is present greatest in smaller branching vessels suggesting history of long-standing chronic medical renal dise ase. There is no acute fracture/dislocation evident in right knee. Mild to moderate tricompartment joel int space loss greatest medial tibiofemoral compartment. Small suprapatellar joint effusion. IMPRESSION: There is no acute fracture or dislocation in the right knee.
--- NOTE | 2020-07-19 09:45 | P.PN ---
Subjective Progress Note Date: 07/19/20 Principal diagnosis: Postoperative day 1 status post open reduction internal fixation midshaft ulnar fracture -Left Mid-shaft ulnar fracture, comminuted, displaced Patient is seen at bedside this morning. Patient is lying in semirecumbent position. Patient says his pain is doing better today. Nurse mentions that yesterday when patient woke up from anesthesia he tried to take his cast and Luis bandage off. It was reapplied and is in stable position today. Patient does mention he has this right knee pain. X-rays have been ordered on the right knee. There is no new injury to this area. Patient denies any chest pain, fever, shortness of breath, nausea, vomiting, headache, change in vision. Patient denies any loss of bowel/bladder control. Patient denies saddle ane sthesia. Cap refill is below 3 seconds in the left hand. Patient is able to wiggle fingers the left hand as well. Patient has not had bowel movement yet. Patient is taking senna currently. Objective - Vital Signs Vital signs: Vital Signs Temp 97.8 F 07/19/20 08:00 Pulse 67 07/19/20 08:00 Resp 19 07/19/20 08:00 BP 181/85 07/19/20 08:00 Pulse Ox 99 07/19/20 08:00 Intake & Output 07/18/20 07/19/20 07/19/20 18:59 06:59 18:59 Intake Total 650 Output Total 20 Balance 630 Intake: IV 650 Output: Estimated Blood Loss 20 Other: # Voids 0 0 # Bowel Movements 0 - Exam Skin inspection: Abrasions and contusions present on forehead. Small abrasion present on right knee anterolaterally. Mild ecchymosis on the right medial malleolus. Posterior slab splint along left arm present with Luis wrap. No ulcers, lesions, abrasions present throughout spine. Palpation: Tenderness to palpation along the left arm. Tenderness to palpation of the medial malleolus and along the midfoot in the right lower extremity. Tenderness to palpation along the forehead where abrasions and contusions are present. Tenderness to palpation of the right anterior knee. Rest exam nontender to palpation Sensation: Sensation is intact in the upper extremities bilaterally, symmetric, equal. Sensation is intact in the lower extremity bilaterally, symmetric, equal Range of motion: Patient has full range of motion shoulders bilaterally. Limited range of motion of left wrist due to sugar tong splint placed. Full range of motion of flexion extension of bilateral elbows. Full range of motion of lower extremities on hip flexion and knee extension/flexion. Motor: Hip flexion knee extension and flexion 5/5 bilaterally. Dorsiflexion right foot 4/5. Right upper extremity 5 out of 5. Left upper extremity limited due to splint and pain in the area. - Labs CBC & Chem 7: 07/18/20 08:15 07/18/20 17:22 Labs: Abnormal Lab Results - Last 24 Hours (Table) 07/18/20 07/18/20 07/18/20 Range/Units 08:15 14:58 16:21 Chloride (98-107) mmol/L BUN (9-20) mg/dL Creatinine (0.66-1.25) mg/dL Glucose (74-99) mg/dL POC Glucose (mg/dL) 131 H 134 H (75-99) mg/dL Troponin I 0.063 H* (0.000-0.034) ng/mL 07/18/20 07/18/20 07/19/20 Range/Units 17:22 20:59 06:58 Chloride 96 L (98-107) mmol/L BUN 56 H (9-20) mg/dL Creatinine 10.20 H* (0.66-1.25) mg/dL Glucose 142 H (74-99) mg/dL POC Glucose (mg/dL) 155 H 135 H (75-99) mg/dL Troponin I (0.000-0.034) ng/mL Assessment and Plan Assessment: 1. Left Mid-shaft ulnar fracture, comminuted, displaced - 2. Right medial malleolus fracture, nondisplaced 3. End-stage renal disease 4. Diabetes 5. Multiple medical comorbidities Plan: 1. Left Mid-shaft ulnar fracture, comminuted, displaced - Open reduction internal fixation of midshaft ulnar fracture surgery performed yesterday, 07/18/2020 - Patient doing well at bedside this morning. He says his pain is under better control. Elbow may be flexed and extended, do not rotate left wrist. Keep Luis bandage and splint on the left arm. Patient able to wiggle fingers. Cap refill < 3 seconds. We'll continue to follow patient while in hospital. 2. Right Medial Malleolus fracture/Right knee pain - x-rays of right ankle performed. nondisplaced fracture of the medial malleolus on the right ankle present. Short leg cam walker/boot ordered and awaiting arrival. Right knee x- rays have been ordered for evaluation of right knee pain. 3. Appreciate medical management; appreciate nephrology management; appreciate neuro management 4. End-stage renal disease; diabetes - is being followed by medicine and nephrology 5. Multiple medical comorbidities 6. Pain management - stable; continue pain meds 7. PT/OT -right leg weightbearing as tolerated only while in short leg cam walker boot. Nonweightbearing on right leg without cam walker. Weightbearing as tolerated on left leg. 8. GI ppx/ DVT ppx - senna as needed. Lovenox Time with Patient: Less than 30
[2020-07-19 10:05] LABS: Basophils # (A) 0.05 X 10*3/uL (0.00-0.10); Basophils % (A) 0.5 %; Eosinophils # (A) 0.04 X 10*3/uL (0.04-0.35); Eosinophils % (A) 0.4 %; HCT 28.5 % (39.6-50.0); HGB 9.2 g/dL (13.0-17.0); Lymphocytes # (A) 0.74 X 10*3/uL (0.90-5.00); Lymphocytes % (A) 7.4 %; MCH 30.4 pg (27.0-32.0); MCHC 32.3 g/dL (32.0-37.0); MCV 94.1 fL (80.0-97.0); Mean Platelet Volume 10.5 fL (9.5-12.2); Neutrophils # (A) 8.03 X 10*3/uL (1.80-7.70); Neutrophils % (A) 80.3 %; Platelet Count 305 X 10*3/uL (140-440); RBC 3.03 X 10*6/uL (4.40-5.60); RDW 14.3 % (11.5-14.5)
[2020-07-19 11:26] LABS: Glucose,Whole Blood 112 mg/dL (75-99)
[2020-07-19] MEDS: amLODIPine 10 MG TAB PO SCH (11:36)
[2020-07-19] MEDS: DIALYVITE PO SCH (11:37)
[2020-07-19 12:05] LABS: % Iron Saturation 15.86 (15.00-50.00)
[2020-07-19] MEDS: lisinopriL 20 MG TAB PO SCH (12:54)
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
[2020-07-19 16:28] LABS: Glucose,Whole Blood 116 mg/dL (75-99)
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
[2020-07-19 20:52] LABS: Glucose,Whole Blood 111 mg/dL (75-99)
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
[2020-07-20] MEDS: HYDROmorphone 0.5 MG/0.5 ML SYRINGE IVP PRN ×3 (02:13→20:15)
[2020-07-20 06:55] LABS: Glucose,Whole Blood 104 mg/dL (75-99)
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
[2020-07-20] MEDS: PANTOPRAZOLE 40 MG TABLET PO SCH (08:18)
[2020-07-20] MEDS: ATORVASTATIN 20 MG TAB PO SCH (08:18)
[2020-07-20] MEDS: HYDROcodone/APAP 5-325MG 1 EACH TAB PO PRN ×2 (08:18→15:26)
[2020-07-20] MEDS: ENOXAPARIN 30 MG/0.3 ML SYRINGE SQ SCH (08:18)
[2020-07-20] MEDS: carvediloL 12.5 MG TAB PO SCH ×2 (08:18→20:14)
[2020-07-20] MEDS: FUROSEMIDE 80 MG TAB PO SCH ×2 (08:18→20:15)
[2020-07-20] MEDS: amLODIPine 10 MG TAB PO SCH (08:18)
[2020-07-20] MEDS: CALCIUM ACETATE 667 MG TAB PO SCH ×3 (08:18→16:59)
[2020-07-20] MEDS: DIALYVITE PO SCH (08:19)
[2020-07-20] MEDS: lisinopriL 20 MG TAB PO SCH (08:19)
[2020-07-20] MEDS: LORATADINE 10 MG TAB PO SCH (08:19)
[2020-07-20 11:42] LABS: Glucose,Whole Blood 135 mg/dL (75-99)
[2020-07-20] MEDS: DOCUSATE 100 MG CAP PO SCH ×2 (12:42→20:14)
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
[2020-07-20] MEDS: cloNIDine HCL 0.1 MG TAB PO SCH ×2 (12:46→20:14)
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
[2020-07-20] MEDS: SODIUM FERRIC GLUCONAT-SUCROSE 125 MG in SODIUM CHLORIDE 0.9% 100 ML IVPB SCH (13:57)
[2020-07-20] MEDS: ALBUTEROL HFA INHALER INHALATION PRN (15:31)
[2020-07-20 16:52] LABS: Glucose,Whole Blood 123 mg/dL (75-99)
[2020-07-20] MEDS: CYCLOBENZAPRINE 5 MG TAB PO PRN (16:59)
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
[2020-07-20] MEDS: ATORVASTATIN 40 MG TAB PO SCH (20:14)
[2020-07-20 20:58] LABS: Glucose,Whole Blood 145 mg/dL (75-99)
[2020-07-21] MEDS: HYDROmorphone 0.5 MG/0.5 ML SYRINGE IVP PRN (01:51)
[2020-07-21 07:05] LABS: Glucose,Whole Blood 154 mg/dL (75-99)
[2020-07-21] MEDS: CALCIUM ACETATE 667 MG TAB PO SCH ×3 (07:27→17:43)
[2020-07-21] MEDS: ENOXAPARIN 30 MG/0.3 ML SYRINGE SQ SCH (07:31)
[2020-07-21] MEDS: DOCUSATE 100 MG CAP PO SCH ×2 (07:32→20:28)
[2020-07-21] MEDS: ASPIRIN 81 MG PO SCH (07:32)
[2020-07-21] MEDS: lisinopriL 20 MG TAB PO SCH (07:32)
[2020-07-21] MEDS: cloNIDine HCL 0.1 MG TAB PO SCH ×2 (07:32→20:28)
[2020-07-21] MEDS: PANTOPRAZOLE 40 MG TABLET PO SCH (07:32)
[2020-07-21] MEDS: amLODIPine 10 MG TAB PO SCH (07:32)
[2020-07-21] MEDS: carvediloL 12.5 MG TAB PO SCH ×2 (07:32→20:28)
[2020-07-21] MEDS: HYDROcodone/APAP 5-325MG 1 EACH TAB PO PRN ×2 (07:32→17:43)
[2020-07-21] MEDS: LORATADINE 10 MG TAB PO SCH (07:32)
[2020-07-21] MEDS: DIALYVITE PO SCH (07:33)
[2020-07-21] MEDS: FUROSEMIDE 80 MG TAB PO SCH ×2 (07:33→20:28)
--- NOTE | 2020-07-21 08:14 | CT ---
EXAMINATION TYPE: CT angio head neck DATE OF EXAM: 07/21/2020 COMPARISON: None HISTORY: SCALP LAC CT DLP: 500.6 mGycm CONTRAST: Performed with IV Contrast, patient injected with 65ML mL of Isovue 370. Combination Contrast CTA cervical carotids and [place] CTA cervical carotids with 3-D recons truction Contrast CTA of the cervical carotids was performed 3-D reconstruction imaging obtained at a separate workstation. Right carotid system: Mild plaque is seen of the right common carotid artery. There is mild plaque a lso noted at the carotid bulb and proximal ICA. Estimated diameter reduction proximal right ICA of 50 -60%. ECA is patent. Right vertebral artery appears unremarkable. Left carotid system: Mild plaque is seen of the left common carotid artery. There is moderate plaque also noted at the carotid bulb and proximal ICA. Estimated diameter reduction left ICA of approxima tely 70%.. ECA is patent. Left vertebral artery appears unremarkable. IMPRESSION: 1. No significant diameter reduction to account for the patient's symptoms. CTA [place] with 3-D reconstruction Contrast CTA of the [place] was performed 3-D reconstruction imaging obtained at a separate workstation. Examination is limited given venous and osseous contamination. Vertebrobasilar system as well as intracranial portions of the internal carotid arteries and their ma jami tributaries are patent. I do not see evidence for sizable aneurysm or vascular malformation. Pl ease note MRI provides greater sensitivity and specificity. Visualized brain appears grossly unremar kable. IMPRESSION: 1. Limited evaluation of the [place] without significant abnormality appreciated at this [facility].
[2020-07-21] MEDS ORDERED: LACTULOSE 20 GM/30 ML CUP PO ONE (09:30)
--- NOTE | 2020-07-21 10:04 | P.PN ---
Subjective Progress Note Date: 07/21/20 Principal diagnosis: Postoperative day 3 status post open reduction internal fixation midshaft ulnar fracture -Left Mid-shaft ulnar fracture, comminuted, displaced Patient seen at bedside this morning. Patient is lying semirecumbent position. He denies any new pain. He says his arm is doing okay. He does mention he received the CAM walker boot yesterday and says he got up to walk around on it. He says it does feel somewhat uncomfortable, but he knows that the Cam Walker boot is needed to stabilize the ankle fracture. Patient had a chest pain, shortness of breath, fever, nausea, vomiting, chills, change in vision. Patient denies any loss of bowel/bladder control. Objective - Vital Signs Vital signs: Vital Signs Temp 98.4 F 07/21/20 07:00 Pulse 63 07/21/20 07:00 Resp 16 07/21/20 07:00 BP 155/68 07/21/20 07:00 Pulse Ox 94 L 07/21/20 07:00 Intake & Output 07/20/20 07/21/20 07/21/20 18:59 06:59 18:59 Other: # Voids 0 - Exam Skin inspection: Abrasions and contusions present on forehead. Small abrasion present on right knee anterolaterally. Mild ecchymosis on the right medial malleolus. Posterior slab splint along left arm present with Luis wrap. No ulcers, lesions, abrasions present throughout spine. Palpation: Tenderness to palpation along the left arm. Tenderness to palpation of the medial malleolus and along the midfoot in the right lower extremity. Tenderness to palpation along the forehead where abrasions and contusions are present. Tenderness to palpation of the right anterior knee. Rest exam nontender to palpation Sensation: Sensation is intact in the upper extremities bilaterally, symmetric, equal. Sensation is intact in the lower extremity bilaterally, symmetric, equal Range of motion: Patient has full range of motion shoulders bilaterally. Limited range of motion of left wrist due to sugar tong splint placed. Full range of motion of flexion extension of bilateral elbows. Full range of motion of lower extremities on hip flexion and knee extension/flexion. Motor: Hip flexion knee extension and flexion 5/5 bilaterally. Dorsiflexion right foot 4/5. Right upper extremity 5 out of 5. Left upper extremity limited due to splint and pain in the area. - Labs CBC & Chem 7: 07/19/20 05:41 07/18/20 17:22 Labs: Abnormal Lab Results - Last 24 Hours (Table) 07/20/20 07/20/20 07/20/20 Range/Units 11:41 16:50 20:56 POC Glucose (mg/dL) 135 H 123 H 145 H (75-99) mg/dL 07/21/20 Range/Units 07:03 POC Glucose (mg/dL) 154 H (75-99) mg/dL Assessment and Plan Assessment: 1. Left Mid-shaft ulnar fracture, comminuted, displaced - 2. Right medial malleolus fracture, nondisplaced 3. End-stage renal disease 4. Diabetes 5. Multiple medical comorbidities Plan: 1. Left Mid-shaft ulnar fracture, comminuted, displaced - Open reduction internal fixation of midshaft ulnar fracture surgery performed 07/18/2020 - Patient doing well at bedside this morning. He says his pain is under better control. Elbow may be flexed and extended, do not rotate left wrist. Keep Luis bandage and splint on the left arm. Patient able to wiggle fingers. Cap refill < 3 seconds. We'll continue to follow patient while in hospital. Patient orthopedically stable at this time, and ready for discharge from orthopedic standpoint. Please contact us if you have any questions. 2. Right Medial Malleolus fracture/Right knee pain - x-rays of right ankle performed. nondisplaced fracture of the medial malleolus on the right ankle present. Short leg cam walker/boot ordered and in room. Patient to use this at all times during ambulation. 3. Appreciate medical management; appreciate nephrology management; appreciate neuro management 4. End-stage renal disease; diabetes - is being followed by medicine and nephrology 5. Multiple medical comorbidities 6. Pain management - stable; continue pain meds 7. PT/OT -right leg weightbearing as tolerated only while in short leg cam walker boot. Nonweightbearing on right leg without cam walker. Weightbearing as tolerated on left leg. 8. GI ppx/ DVT ppx - senna as needed. Lovenox Time with Patient: Less than 30
[2020-07-21 11:30] LABS: Glucose,Whole Blood 111 mg/dL (75-99)
[2020-07-21] MEDS: SODIUM FERRIC GLUCONAT-SUCROSE 125 MG in SODIUM CHLORIDE 0.9% 100 ML IVPB SCH (11:37)
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
[2020-07-21 16:41] LABS: Glucose,Whole Blood 158 mg/dL (75-99)
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
[2020-07-21] MEDS: ATORVASTATIN 40 MG TAB PO SCH (20:28)
[2020-07-21] MEDS: CYCLOBENZAPRINE 5 MG TAB PO PRN (20:28)
[2020-07-21 20:56] LABS: Glucose,Whole Blood 144 mg/dL (75-99)
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
[2020-07-22 06:57] LABS: Glucose,Whole Blood 158 mg/dL (75-99)
[2020-07-22] MEDS: ALBUTEROL HFA INHALER INHALATION PRN ×3 (07:20→16:41)
[2020-07-22] MEDS: DOCUSATE 100 MG CAP PO SCH ×2 (08:02→20:49)
[2020-07-22] MEDS: LORATADINE 10 MG TAB PO SCH (08:02)
[2020-07-22] MEDS: CALCIUM ACETATE 667 MG TAB PO SCH ×3 (08:02→16:14)
[2020-07-22] MEDS: lisinopriL 20 MG TAB PO SCH (08:02)
[2020-07-22] MEDS: carvediloL 12.5 MG TAB PO SCH ×2 (08:02→20:49)
[2020-07-22] MEDS: ENOXAPARIN 30 MG/0.3 ML SYRINGE SQ SCH (08:03)
[2020-07-22] MEDS: ASPIRIN 81 MG PO SCH (08:03)
[2020-07-22] MEDS: DIALYVITE PO SCH (08:03)
[2020-07-22] MEDS: cloNIDine HCL 0.1 MG TAB PO SCH ×2 (08:03→20:49)
[2020-07-22] MEDS: PANTOPRAZOLE 40 MG TABLET PO SCH (08:03)
[2020-07-22] MEDS: FUROSEMIDE 80 MG TAB PO SCH ×2 (08:03→20:49)
[2020-07-22] MEDS: amLODIPine 10 MG TAB PO SCH (08:03)
[2020-07-22] MEDS: HYDROcodone/APAP 5-325MG 1 EACH TAB PO PRN (08:05)
[2020-07-22] MEDS: SODIUM FERRIC GLUCONAT-SUCROSE 125 MG in SODIUM CHLORIDE 0.9% 100 ML IVPB SCH (08:06)
[2020-07-22 11:28] LABS: Glucose,Whole Blood 151 mg/dL (75-99)
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
[2020-07-22] MEDS: HYDROmorphone 1 MG/ML 1 ML SYRINGE IVP PRN ×3 (11:55→20:49)
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
[2020-07-22 16:50] LABS: Glucose,Whole Blood 144 mg/dL (75-99)
--- NOTE | 2020-07-22 17:27 | P.PN ---
Progress Note - Text Progress Note Date: 07/22/20 Patient is improved today. He has less facial edema and bruising. He has complaints of generalized body pain. As well as pain in his left arm. On exam vital signs are stable. Significant improvement in facial ecchymosis. Chest is clear abdomen soft. Closed head injury/polytrauma. Patient will continue receive supportive care.
[2020-07-22 20:32] LABS: Glucose,Whole Blood 172 mg/dL (75-99)
[2020-07-22] MEDS: DIVALPROEX 250 MG TABLET.DR PO SCH (20:49)
[2020-07-22] MEDS: ATORVASTATIN 40 MG TAB PO SCH (20:49)
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
[2020-07-23 06:53] LABS: Glucose,Whole Blood 188 mg/dL (75-99)
[2020-07-23] MEDS: ALBUTEROL HFA INHALER INHALATION PRN ×2 (07:06→17:10)
[2020-07-23] MEDS: DIALYVITE PO SCH (07:29)
[2020-07-23] MEDS: ENOXAPARIN 30 MG/0.3 ML SYRINGE SQ SCH (07:36)
[2020-07-23] MEDS: ASPIRIN 81 MG PO SCH (07:37)
[2020-07-23] MEDS: LORATADINE 10 MG TAB PO SCH (07:37)
[2020-07-23] MEDS: DIVALPROEX 250 MG TABLET.DR PO SCH ×2 (07:37→20:35)
[2020-07-23] MEDS: DOCUSATE 100 MG CAP PO SCH ×2 (07:37→20:34)
[2020-07-23] MEDS: carvediloL 12.5 MG TAB PO SCH ×2 (07:37→20:35)
[2020-07-23] MEDS: lisinopriL 20 MG TAB PO SCH (07:38)
[2020-07-23] MEDS: cloNIDine HCL 0.1 MG TAB PO SCH ×2 (07:38→20:35)
[2020-07-23] MEDS: PANTOPRAZOLE 40 MG TABLET PO SCH (07:38)
[2020-07-23] MEDS: FUROSEMIDE 80 MG TAB PO SCH ×2 (07:38→20:35)
[2020-07-23] MEDS: amLODIPine 10 MG TAB PO SCH (07:38)
[2020-07-23] MEDS: HYDROmorphone 1 MG/ML 1 ML SYRINGE IVP PRN ×3 (07:38→17:53)
[2020-07-23] MEDS: CALCIUM ACETATE 667 MG TAB PO SCH ×3 (07:38→17:53)
[2020-07-23 08:56] LABS: ALT <6 U/L (4-49); AST 22 U/L (17-59); African American GFR (CKD) 5 (>60 ml/min/1.73 sqM); Albumin 3.7 g/dL (3.5-5.0); Albumin/Globulin Ratio 1.4; Alkaline Phosphatase 107 U/L (38-126); Anion Gap 13 mmol/L; Blood Urea Nitrogen 57 mg/dL (9-20); Calcium 8.8 mg/dL (8.4-10.2); Carbon Dioxide 27 mmol/L (22-30); Chloride 92 mmol/L (98-107); Globulin 2.7 g/dL; Glucose 154 mg/dL (74-99); Non-African American GFR(CKD) 4 (>60 ml/min/1.73 sqM); Potassium 4.8 mmol/L (3.5-5.1); Sodium 132 mmol/L (137-145); Total Bilirubin 0.6 mg/dL (0.2-1.3); Total Protein 6.4 g/dL (6.3-8.2)
[2020-07-23] MEDS: SODIUM FERRIC GLUCONAT-SUCROSE 125 MG in SODIUM CHLORIDE 0.9% 100 ML IVPB SCH (10:18)
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
[2020-07-23 11:42] LABS: Glucose,Whole Blood 173 mg/dL (75-99)
--- NOTE | 2020-07-23 12:37 | P.PN ---
Progress Note - Text Progress Note Date: 07/23/20 The patient has complaints of full body pain and weakness. He is not ready to go home. His facial swelling is improved. On exam vital signs are stable. Chest is clear abdomen soft. There is significant improvement in his facial edema and ecchymosis. Patient will continue have physical therapy work with him with dysphagia discharged home in a few days. He'll be transferred to the medical service of Dr. jovel.
[2020-07-23 14:04] VITALS: BMI 28.8
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
[2020-07-23 16:44] LABS: Glucose,Whole Blood 116 mg/dL (75-99)
[2020-07-23] MEDS: ATORVASTATIN 40 MG TAB PO SCH (20:35)
[2020-07-23 20:43] LABS: Glucose,Whole Blood 176 mg/dL (75-99)
[2020-07-24] MEDS: HYDROcodone/APAP 5-325MG 1 EACH TAB PO PRN ×2 (04:44→14:34)
[2020-07-24 06:38] LABS: Glucose,Whole Blood 202 mg/dL (75-99)
[2020-07-24] MEDS: ENOXAPARIN 30 MG/0.3 ML SYRINGE SQ SCH (07:47)
[2020-07-24] MEDS: ASPIRIN 81 MG PO SCH (07:47)
[2020-07-24] MEDS: carvediloL 12.5 MG TAB PO SCH (07:47)
[2020-07-24] MEDS: PANTOPRAZOLE 40 MG TABLET PO SCH (07:48)
[2020-07-24] MEDS: DIVALPROEX 250 MG TABLET.DR PO SCH (07:48)
[2020-07-24] MEDS: lisinopriL 20 MG TAB PO SCH (07:48)
[2020-07-24] MEDS: LORATADINE 10 MG TAB PO SCH (07:48)
[2020-07-24] MEDS: DOCUSATE 100 MG CAP PO SCH (07:48)
[2020-07-24] MEDS: CALCIUM ACETATE 667 MG TAB PO SCH ×3 (07:48→17:35)
[2020-07-24] MEDS: amLODIPine 10 MG TAB PO SCH (07:49)
[2020-07-24] MEDS: DIALYVITE PO SCH (07:49)
[2020-07-24] MEDS: FUROSEMIDE 80 MG TAB PO SCH (07:49)
[2020-07-24] MEDS: cloNIDine HCL 0.1 MG TAB PO SCH (07:49)
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
[2020-07-24 11:39] LABS: Glucose,Whole Blood 320 mg/dL (75-99)
[2020-07-24 16:39] LABS: Glucose,Whole Blood 188 mg/dL (75-99)
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
[2020-07-24 19:59] VITALS: BP 132/68; PULSE 54; RESP 18; TEMP 98.4
== END 2020-07-24 20:15 | DRG 510 ==
LOC: EC 13:27 → 4SSUR 15:41
PROVIDERS: ADMIT Hospitalist; ATTEND Hospitalist
PROC: 0HQ0XZZ Repair Scalp Skin, External Approach (ICD-10-PCS; 2020-07-17)
PROC: 2W3DX2Z Immobilization of Left Lower Arm using Cast (ICD-10-PCS; 2020-07-17)
PROC: 0PSL04Z Reposition Left Ulna with Internal Fixation Device, Open Approach (ICD-10-PCS; principal; 2020-07-18 12:00)
PROC: 5A1D70Z Performance of Urinary Filtration, Intermittent, Less than 6 Hours Per Day (ICD-10-PCS; 2020-07-19)
DX: S52.252A Displaced comminuted fracture of shaft of ulna, left arm, initial encounter for closed fracture (principal); N18.6 End stage renal disease; S06.0X1A Concussion with loss of consciousness of 30 minutes or less, initial encounter; I13.11 Hypertensive heart and chronic kidney disease without heart failure, with stage 5 chronic kidney disease, or end stage renal disease; E87.2 Acidosis; E87.1 Hypo-osmolality and hyponatremia; D63.1 Anemia in chronic kidney disease; E83.9 Disorder of mineral metabolism, unspecified; E11.22 Type 2 diabetes mellitus with diabetic chronic kidney disease; E11.42 Type 2 diabetes mellitus with diabetic polyneuropathy; Z99.2 Dependence on renal dialysis; S82.51XA Displaced fracture of medial malleolus of right tibia, initial encounter for closed fracture; Z79.4 Long term (current) use of insulin; Z20.822 Contact with and (suspected) exposure to COVID-19; S01.01XA Laceration without foreign body of scalp, initial encounter; R40.2142 Coma scale, eyes open, spontaneous, at arrival to emergency department; R40.2362 Coma scale, best motor response, obeys commands, at arrival to emergency department; R40.2252 Coma scale, best verbal response, oriented, at arrival to emergency department; K21.9 Gastro-esophageal reflux disease without esophagitis; S01.81XA Laceration without foreign body of other part of head, initial encounter; R00.1 Bradycardia, unspecified; E78.5 Hyperlipidemia, unspecified; R77.8 Other specified abnormalities of plasma proteins; R41.3 Other amnesia; I65.23 Occlusion and stenosis of bilateral carotid arteries; E11.65 Type 2 diabetes mellitus with hyperglycemia; V44.5XXA Car driver injured in collision with heavy transport vehicle or bus in traffic accident, initial encounter; Y92.410 Unspecified street and highway as the place of occurrence of the external cause; Z79.899 Other long term (current) drug therapy; Z87.01 Personal history of pneumonia (recurrent); Z98.890 Other specified postprocedural states; Z95.828 Presence of other vascular implants and grafts; Z87.891 Personal history of nicotine dependence; Z83.3 Family history of diabetes mellitus; Z84.1 Family history of disorders of kidney and ureter; Z83.79 Family history of other diseases of the digestive system; Z82.49 Family history of ischemic heart disease and other diseases of the circulatory system
CPT/HCPCS: 12002; 36415; 64415; 70450; 70496; 70498; 71045; 71260; 72125; 72170; 74177; 76942; 80053; 80320; 83540; 83550; 84484; 85025; 85610; 85730; 86850; 86900; 86901; 87635; 90471; 90715; 90935; 93005; 93270; 93880; 94640; 96374; 96375; 99291

== ENCOUNTER 2020-10-30 00:13 | Inpatient (IN) | payer MEDICARE, OTHER ==
--- NOTE | 2020-10-30 00:29 | ED ---
Recheck HPI - General Chief Complaint: Shortness of Breath Stated Complaint: SOB Time Seen by Provider: 10/30/20 00:27 Source: patient, RN/MD, EMS, RN notes reviewed, old records reviewed Mode of arrival: EMS Limitations: no limitations - History of Present Illness Initial Comments: This is a 60-year-old male to the emergency room today. Patient Dese as a transfer for evaluation regarding ascites swelling shortness of breath. Dialysis does not seem to be helping his fluid overload state or condition. Patient is awake and not feeling well. History obtained from EMS and patient's transfer paperwork MD Complaint: abnormal lab (Increased swelling and edema) -: unknown Returns Today for: other (Increased swelling and edema) Symptoms Since Prior Visit: worsening swelling Context: planned re-check, other (Transfer for inpatient evaluation) Associated Symptoms: none - Related Data Home Medications Medication Instructions Recorded Confirmed Albuterol Sulfate [Ventolin HFA] 1 - 2 puff INHALATION RT-Q6H PRN 07/17/20 07/17/20 Calcium Acetate [PhosLo] 1,334 mg PO AC-TID 07/17/20 07/17/20 Carvedilol [Coreg] 25 mg PO BID 07/17/20 07/17/20 Dialyvite 1 tab PO DAILY 07/17/20 07/17/20 Furosemide [Lasix] 80 mg PO BID 07/17/20 07/17/20 Lidocaine-Prilocaine Cream [Emla 1 applic TOPICAL DAILY PRN 07/17/20 07/17/20 Cream 2.5%/2.5%] Loratadine 10 mg PO DAILY 07/17/20 07/17/20 Omeprazole 20 mg PO DAILY 07/17/20 07/17/20 lisinopriL 40 mg PO DAILY 07/17/20 07/17/20 Previous Rx's Medication Instructions Recorded Acetaminophen Tab [Tylenol] 650 mg PO Q6HR PRN #30 tab 09/21/17 amLODIPine [Norvasc] 10 mg PO DAILY #30 tab 09/21/17 Aspirin 81 mg PO DAILY chew 07/24/20 Atorvastatin [Lipitor] 40 mg PO HS tab 07/24/20 Cyclobenzaprine [Flexeril] 5 mg PO BID PRN tab 07/24/20 Darbepoetin Vikash [Aranesp] 40 mcg SQ Q7D syringe 07/24/20 Divalproex [Depakote] 250 mg PO BID tablet. 07/24/20 Insulin NPH Hum/Reg Insulin Hm 12 unit SQ BID #0 07/24/20 [NovoLIN 70-30 100 UNIT/ML VIAL] Sennosides [Senokot] 8.6 mg PO DAILY PRN tab 07/24/20 cloNIDine HCL [Catapres] 0.1 mg PO BID tab 07/24/20 oxyCODONE HCL [OxyIR] 5 mg PO Q6H PRN 3 Days #10 tab 07/24/20 Allergies Allergy/AdvReac Type Severity Reaction Status Date / Time No Known Allergies Allergy Verified 10/30/20 00:23 Review of Systems ROS Statement: Those systems with pertinent positive or pertinent negative responses have been documented in the HPI. ROS Other: All systems not noted in ROS Statement are negative. Past Medical History Past Medical History: Diabetes Mellitus, GERD/Reflux, Pneumonia, Renal Disease Additional Past Medical History / Comment(s): End stage renal disease currently on hemodialysis, diabetes mellitus, hypertension, acid reflux and recent hospitalization for right lung pneumonia and parapneumonic effusion. 11 History of Any Multi-Drug Resistant Organisms: None Reported Past Surgical History: Hernia Repair Additional Past Surgical History / Comment(s): umb hernia repair/mesh, rt upper chest dialysis cath Past Anesthesia/Blood Transfusion Reactions: No Reported Reaction Additional Past Anesthesia/Blood Transfusion Reaction / Comment(s): clausterphobia Past Psychological History: No Psychological Hx Reported Smoking Status: Former smoker Past Alcohol Use History: Occasional Past Drug Use History: None Reported - Past Family History Mother Family Medical History: No Reported History Additional Family Medical History / Comment(s): alive healthy age 82 Father Family Medical History: Diabetes Mellitus, Liver Disease, Renal Disease Additional Family Medical History / Comment(s): kidney/liver failure General Exam Limitations: no limitations General appearance: alert, in no apparent distress Head exam: Present: atraumatic, normocephalic, normal inspection Eye exam: Present: normal appearance, PERRL, EOMI. Absent: scleral icterus, conjunctival injection, periorbital swelling ENT exam: Present: normal exam, mucous membranes moist Neck exam: Present: normal inspection. Absent: tenderness, meningismus, lymphadenopathy Respiratory exam: Present: normal lung sounds bilaterally. Absent: respiratory distress, wheezes, rales, rhonchi, stridor Cardiovascular Exam: Present: regular rate, normal rhythm, normal heart sounds. Absent: systolic murmur, diastolic murmur, rubs, gallop, clicks GI/Abdominal exam: Present: soft, normal bowel sounds. Absent: distended, tenderness, guarding, rebound, rigid Extremities exam: Present: normal inspection, full ROM, normal capillary refill. Absent: tenderness, pedal edema, joint swelling, calf tenderness Back exam: Present: normal inspection Neurological exam: Present: alert, oriented X3, CN II-XII intact Psychiatric exam: Present: normal affect, normal mood Skin exam: Present: warm, dry, intact, normal color. Absent: rash Course Vital Signs 10/30/20 00:15 Temperature 99.1 F Pulse Rate 79 Respiratory 24 Rate Blood Pressure 166/85 O2 Sat by Pulse 97 Oximetry - Reevaluation(s) Reevaluation #1: 10/30/20 01:01 Medical record is reviewed Reevaluation #2: 10/30/20 01:02 Transfer paperwork is reviewed 10/30/20 01:02 Spoke with transferring physician regarding patient Medical Decision Making - Medical Decision Making 60 male accepted the emergency department today for evaluation of chest ascites and fluid overload. Patient is a known dialysis patient and presents to the ER for evaluation regarding difficulty breathing and increased fluid and weight gain Disposition Clinical Impression: Acute renal failure, Recurrent right pleural effusion, Heart failure, ESRD (end stage renal disease), Ascites Disposition: ADMITTED IP TO THIS HOSP Condition: Fair Is patient prescribed a controlled substance at d/c from ED?: No Referrals: Hayden Cervantes MD [Primary Care Provider] - 1-2 days
[2020-10-30] MEDS ORDERED: ONDANSETRON 4 MG/2 ML VIAL IVP PRN (01:04)
[2020-10-30] MEDS ORDERED: NALOXONE 0.4 MG/ML 1 ML VIAL IV PRN (01:04)
[2020-10-30] MEDS: MORPHINE SULFATE 4 MG/ML SYRINGE IV PRN ×3 (01:17→14:12)
[2020-10-30 06:09] LABS: Glucose,Whole Blood 98 mg/dL (75-99)
[2020-10-30] MEDS: INSULIN ASPART (NovoLOG) 100 UNIT/ML VIAL SQ SCH ×4 (06:10→21:38)
--- NOTE | 2020-10-30 09:59 | XR ---
EXAMINATION TYPE: XR chest 2V DATE OF EXAM: 10/30/2020 COMPARISON: 07/17/2020 HISTORY: Shortness of breath TECHNIQUE: Frontal and lateral views of the chest are obtained. FINDINGS: Scattered senescent parenchymal changes noted. Hyperinflation compatible with COPD. No evidence for infiltrate. No evidence for atelectasis. Heart size is stable. Mediastinal structures are stable and grossly unremarkable. No evidence for hilar prominence. Degenerative changes dorsal spine. IMPRESSION: 1. No evidence for acute pulmonary disease.
[2020-10-30] MEDS ORDERED: ALBUTEROL NEBULIZED 2.5 MG/3 ML INHALATION PRN (10:46)
[2020-10-30] MEDS ORDERED: LIDOCAINE-PRILOCAINE 2.5-2.5% CREAM 5 GM TUBE TOPICAL PRN (10:46)
[2020-10-30] MEDS ORDERED: ACETAMINOPHEN TAB 500 MG TAB PO PRN (10:46)
[2020-10-30] MEDS ORDERED: CYCLOBENZAPRINE 5 MG TAB PO PRN (10:46)
[2020-10-30] MEDS: cloNIDine HCL 0.1 MG TAB PO SCH ×2 (11:23→21:38)
[2020-10-30] MEDS: LINAGLIPTIN 5 MG TABLET PO SCH (11:23)
[2020-10-30] MEDS: FUROSEMIDE 80 MG TAB PO SCH ×2 (11:24→21:38)
[2020-10-30] MEDS: lisinopriL 20 MG TAB PO SCH (11:24)
[2020-10-30] MEDS: PANTOPRAZOLE 40 MG TABLET PO SCH (11:26)
[2020-10-30] MEDS: LORATADINE 10 MG TAB PO SCH (11:26)
[2020-10-30] MEDS: carvediloL 12.5 MG TAB PO SCH ×2 (11:26→18:05)
[2020-10-30] MEDS: amLODIPine 10 MG TAB PO SCH (11:26)
[2020-10-30] MEDS: ASPIRIN 81 MG PO SCH (11:26)
[2020-10-30] MEDS: FOLIC ACID-VIT B COMPLEX-VIT C 1 CAP PO SCH (11:30)
[2020-10-30] MEDS: DIVALPROEX 250 MG TABLET.DR PO SCH ×2 (11:30→21:38)
[2020-10-30 11:38] LABS: Glucose,Whole Blood 104 mg/dL (75-99)
[2020-10-30] MEDS: CALCIUM ACETATE 667 MG TAB PO SCH ×2 (13:40→18:05)
[2020-10-30 14:36] LABS: Mean Platelet Volume 6.8; Platelet Count 473 k/uL (150-450)
[2020-10-30 14:38] LABS: Prothrombin Time 11.1 sec (9.0-12.0)
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
[2020-10-30 16:43] LABS: Glucose,Whole Blood 88 mg/dL (75-99)
--- NOTE | 2020-10-30 18:04 | US ---
EXAMINATION TYPE: US paracentesis abd w/image DATE OF EXAM: 10/30/2020 COMPARISON: NONE HISTORY: Ascites. PROCEDURE: Maximal barrier technique was utilized. The skin overlying a suitable pocket of fluid was localized with ultrasound and the overlying skin was prepped and draped. Ultrasound was utilized with sterile technique. Lidocaine was used for local anesthesia and a skin stephanie made with a scalpel. Catheter was advanced under direct ultrasound guidance into a suitable pocket of fluid and approximately 11.2 lite rs of serous fluid were removed. Catheter was withdrawn and hemostasis achieved. There is no immedi ate complication; the patient is discharged in stable condition. IMPRESSION: STATUS POST ULTRASOUND GUIDED PARACENTESIS FOR PALLIATION OF ASCITES. THIS PROCEDURE WA S PERFORMED BY THE UNDERSIGNED.
[2020-10-30 20:29] LABS: Glucose,Whole Blood 206 mg/dL (75-99)
[2020-10-30] MEDS ORDERED: ATORVASTATIN 40 MG TAB PO SCH (21:00)
[2020-10-30 21:40] LABS: Glucose,Whole Blood 188 mg/dL (75-99)
[2020-10-30 22:14] LABS: Appearance,BF Clear; Color,BF Yellow; Nucleated Cells, Body Fluid 28 /uL
[2020-10-30 22:15] LABS: RBC, Body Fluid 3 /uL
[2020-10-30 22:18] LABS: Mononuclear WBC,Body Fluid 98 %; Polynuclear WBC,Body Fluid 2 %; Total Cells Counted,Body Fluid 100
[2020-10-31] MEDS: MORPHINE SULFATE 4 MG/ML SYRINGE IV PRN ×2 (02:44→09:52)
[2020-10-31 06:09] LABS: Glucose,Whole Blood 95 mg/dL (75-99)
[2020-10-31] MEDS: PANTOPRAZOLE 40 MG TABLET PO SCH (06:53)
[2020-10-31] MEDS: carvediloL 12.5 MG TAB PO SCH ×2 (06:53→18:32)
[2020-10-31] MEDS: CALCIUM ACETATE 667 MG TAB PO SCH ×3 (06:53→18:32)
[2020-10-31 06:59] LABS: Glucose, BF Source Ascites; Glucose, Body Fluid 92 mg/dL; LDH, Body Fluid Source Ascites
[2020-10-31] MEDS: INSULIN ASPART (NovoLOG) 100 UNIT/ML VIAL SQ SCH ×3 (07:55→17:01)
--- NOTE | 2020-10-31 08:28 | ECHOF ---
Referral Reason:assess lvf MEASUREMENTS -------- HEIGHT: 170.2 cm WEIGHT: 83.9 kg BP: RVIDd: 3.1 cm (< 3.3) IVSd: 0.9 cm (0.6 - 1.1) LVIDd: 4.5 cm (3.9 - 5.3) LVPWd: 1.1 cm (0.6 - 1.1) IVSs: 1.3 cm LVIDs: 3.2 cm LVPWs: 1.9 cm LAESV Index (A-L): 26.68 ml/m Ao Diam: 3.4 cm (2.0 - 3.7) AV Cusp: 1.8 cm (1.5 - 2.6) LA Diam: 3.2 cm (2.7 - 3.8) MV EXCURSION: 21.171 mm (> 18.000) MV EF SLOPE: 48 mm/s (70 - 150) EPSS: 1.1 cm MV E Mychal: 1.35 m/s MV DecT: 226 ms MV A Mychal: 0.83 m/s MV E/A Ratio: 1.62 AV maxP.42 mmHg AV meanP.80 mmHg RAP: 5.00 mmHg RVSP: 55.90 mmHg FINDINGS -------- This was a technically good study. The left ventricular size is normal. Left ventricular wall thickness is normal. Overall left vent ricular systolic function is normal with, an EF between 55 - 60 %. Normal LAP. Grade 1 Diastolic Dy sfunction. The right ventricle is normal in size. The left atrial size is normal. Normal LA size by volume 22+/-6 ml/m2. The right atrial size is normal. Aortic valve is trileaflet and is mildly thickened. There is mild aortic valve sclerosis. Peak/me an gradient across the Aortic Valve is 16.42mmHg / 9.80mmHg. The mitral valve is normal. Mild mitral regurgitation is present. The tricuspid valve appears structurally normal. Severe tricuspid regurgitation present. There is moderate pulmonary hypertension. The right ventricular systolic pressure, as measured by Doppler, is 55.90mmHg. There is no pulmonic regurgitation present. The aortic root size is normal. IVC Not well visulized. There is no pericardial effusion. CONCLUSIONS -------- 1. The left ventricular size is normal. 2. Left ventricular wall thickness is normal. 3. Overall left ventricular systolic function is normal with, an EF between 55 - 60 %. 4. Normal LAP. Grade 1 Diastolic Dysfunction. 5. Aortic valve is trileaflet and is mildly thickened. 6. There is mild aortic valve sclerosis. 7. Peak/mean gradient across the Aortic Valve is 16.42mmHg / 9.80mmHg. 8. Mild mitral regurgitation is present. 9. Severe tricuspid regurgitation present. 10. There is moderate pulmonary hypertension. 11. The right ventricular systolic pressure, as measured by Doppler, is 55.90mmHg. 12. There is no pericardial effusion. DINING ROOM CASHIER: Louise Toledo RDCS
[2020-10-31 09:37] LABS: Basophils # (A) 0.1 k/uL (0-0.2); Basophils % (A) 1 %; Eosinophils # (A) 0.2 k/uL (0-0.7); Eosinophils % (A) 3 %; HCT 27.7 % (39.0-53.0); HGB 9.2 gm/dL (13.0-17.5); Lymphocytes # (A) 0.7 k/uL (1.0-4.8); Lymphocytes % (A) 10 %; MCH 30.1 pg (25.0-35.0); MCHC 33.3 g/dL (31.0-37.0); MCV 90.5 fL (80.0-100.0); Monocytes # (A) 0.8 k/uL (0-1.0); Monocytes % (A) 12 %; Neutrophils # (A) 4.8 k/uL (1.3-7.7); Neutrophils % (A) 71 %; Platelet Count 395 k/uL (150-450); RBC 3.06 m/uL (4.30-5.90); RDW 15.9 % (11.5-15.5); WBC 6.8 k/uL (3.8-10.6)
[2020-10-31 09:48] LABS: Albumin 2.9 g/dL (3.5-5.0); Calcium 8.8 mg/dL (8.4-10.2); Magnesium 2.1 mg/dL (1.6-2.3); Phosphorus 4.6 mg/dL (2.5-4.5); Potassium 4.5 mmol/L (3.5-5.1); Total Bilirubin 0.4 mg/dL (0.2-1.3); Total Protein 5.6 g/dL (6.3-8.2)
[2020-10-31] MEDS: lisinopriL 20 MG TAB PO SCH (09:53)
[2020-10-31] MEDS: ASPIRIN 81 MG PO SCH (09:53)
[2020-10-31] MEDS: FOLIC ACID-VIT B COMPLEX-VIT C 1 CAP PO SCH (09:53)
[2020-10-31] MEDS: amLODIPine 10 MG TAB PO SCH (09:53)
[2020-10-31] MEDS: DIVALPROEX 250 MG TABLET.DR PO SCH (09:53)
[2020-10-31] MEDS: LORATADINE 10 MG TAB PO SCH (09:53)
[2020-10-31] MEDS: LINAGLIPTIN 5 MG TABLET PO SCH (09:53)
[2020-10-31] MEDS: cloNIDine HCL 0.1 MG TAB PO SCH (09:53)
[2020-10-31] MEDS: FUROSEMIDE 80 MG TAB PO SCH (09:53)
[2020-10-31 11:39] LABS: Glucose,Whole Blood 214 mg/dL (75-99)
--- NOTE | 2020-10-31 12:06 | P.NPCON ---
History of Present Illness - Reason for Consult Consult date: 10/31/20 end stage renal disease - Chief Complaint ESRD on dialysis Monday, ascites - History of Present Illness This is a 60-year-old male known to us with ESRD on dialysis Monday at [facility]. He was admitted because of significant ascites. On he underwent dialysis yesterday and 3 L were taken off and additionally he had 11.8 L taken off with paracentesis. He has tolerated this well and is feeling much better today. His appetite was poor because of tight ascites. Is better today. No shortness of breath and has mild cough. Past history of diabetes mellitus, hypertension, right lung pneumonia in the past and effusion. No past history of liver disease. History of smoking remotely 22 years ago, Past Medical History Past Medical History: Diabetes Mellitus, GERD/Reflux, Pneumonia, Renal Disease Additional Past Medical History / Comment(s): End stage renal disease currently on hemodialysis, diabetes mellitus, hypertension, acid reflux and recent hospitalization for right lung pneumonia and parapneumonic effusion. 11 History of Any Multi-Drug Resistant Organisms: None Reported Past Surgical History: Hernia Repair Additional Past Surgical History / Comment(s): umb hernia repair/mesh, rt upper chest dialysis cath Past Anesthesia/Blood Transfusion Reactions: No Reported Reaction Additional Past Anesthesia/Blood Transfusion Reaction / Comment(s): clausterphobia Past Psychological History: No Psychological Hx Reported Smoking Status: Former smoker Past Alcohol Use History: Occasional Additional Past Alcohol Use History / Comment(s): started smoking at age 16 and quit at age 38 smoked 1-2 ppd Past Drug Use History: None Reported - Past Family History Mother Family Medical History: No Reported History Additional Family Medical History / Comment(s): alive healthy age 82 Father Family Medical History: Diabetes Mellitus, Liver Disease, Renal Disease Additional Family Medical History / Comment(s): kidney/liver failure Medications and Allergies Home Medications Medication Instructions Recorded Confirmed Type amLODIPine [Norvasc] 10 mg PO DAILY #30 tab 09/21/17 10/30/20 Rx Albuterol Sulfate [Ventolin HFA] 1 - 2 puff INHALATION RT-Q6H PRN 07/17/20 10/30/20 History Calcium Acetate [PhosLo] 1,334 mg PO AC-TID 07/17/20 10/30/20 History Carvedilol [Coreg] 25 mg PO BID 07/17/20 10/30/20 History Dialyvite 1 tab PO DAILY 07/17/20 10/30/20 History Furosemide [Lasix] 80 mg PO BID 07/17/20 10/30/20 History Lidocaine-Prilocaine Cream [Emla 1 applic TOPICAL DAILY PRN 07/17/20 10/30/20 History Cream 2.5%/2.5%] Loratadine 10 mg PO DAILY 07/17/20 10/30/20 History Omeprazole 20 mg PO DAILY 07/17/20 10/30/20 History lisinopriL 40 mg PO DAILY 07/17/20 10/30/20 History Aspirin 81 mg PO DAILY chew 07/24/20 10/30/20 Rx Atorvastatin [Lipitor] 40 mg PO HS tab 07/24/20 10/30/20 Rx Divalproex [Depakote] 250 mg PO BID tablet. 07/24/20 10/30/20 Rx cloNIDine HCL [Catapres] 0.1 mg PO BID tab 07/24/20 10/30/20 Rx Acetaminophen [Tylenol] 1,000 - 1,500 mg PO Q6H PRN 10/30/20 10/30/20 History Cyclobenzaprine [Flexeril] 5 mg PO DAILY PRN 10/30/20 10/30/20 History Linagliptin [Tradjenta] 5 mg PO DAILY 10/30/20 10/30/20 History Allergies Allergy/AdvReac Type Severity Reaction Status Date / Time No Known Allergies Allergy Verified 10/30/20 08:33 Physical Exam Vitals: Vital Signs Temp Pulse Resp BP Pulse Ox 10/31/20 09:49 99.3 F 68 16 113/55 96 10/31/20 04:00 98.1 F 69 18 113/51 94 L 10/31/20 02:00 79 18 10/31/20 00:00 99.1 F 77 18 120/66 93 L 10/30/20 20:00 99.5 F 79 18 127/75 96 10/30/20 18:00 77 18 123/55 98 10/30/20 17:45 76 18 139/77 98 10/30/20 17:30 74 18 136/74 98 10/30/20 17:25 78 18 144/62 10/30/20 17:18 75 18 136/65 97 10/30/20 17:15 78 18 131/65 97 10/30/20 17:10 79 20 121/50 97 10/30/20 16:55 79 20 126/54 96 10/30/20 16:40 81 18 149/75 96 10/30/20 16:35 81 20 123/51 97 10/30/20 16:24 81 20 144/78 96 10/30/20 16:20 97.4 F L 72 20 140/75 10/30/20 16:18 82 20 125/65 96 10/30/20 14:11 127/72 10/30/20 14:00 78 18 Intake and Output 10/30/20 10/31/20 10/31/20 22:59 06:59 14:59 Intake Total 240 0 Output Total 2500 Balance -2260 0 Intake: Oral 240 0 Output: Hemodialysis 2500 Other: # Voids 0 0 Weight 69.8 kg On examination is awake alert oriented comfortable. A chin exam no JVP neck is supple no facial asymmetry Lungs are significant for bilateral coarse crackles not cleared by coughing Heart sounds unremarkable for any murmur rub gallop Abdomen soft nontender, no ascites is currently no organomegaly. Extreme examination reveals no edema Neurologically awake alert oriented comfortable. Results - Lab Results Most recent lab results Calcium 8.8 mg/dL (8.4-10.2) 10/31/20 08:19 Phosphorus 4.6 mg/dL (2.5-4.5) H 10/31/20 08:19 Magnesium 2.1 mg/dL (1.6-2.3) 10/31/20 08:19 10/31/20 08:19 10/31/20 08:19 Assessment and Plan Assessment: Impression 1. ESRD on dialysis Monday at [facility] unit. 2. Admitted because of tense ascites status post 11.8 L paracentesis yesterday and stable 3. Anemia with hemoglobin 9.2 4. Ascites cause not clear rule out liver disease and possibly related to ESRD. 5. Diabetes mellitus Recommendation 1. He'll be dialyzed today for on his scheduled. 2. GI assessment off ascites. 3. He could be discharged after dialysis today from nephrological perspective and followed up as an outpatient for his liver disease Thank you for this consultation and will continue to follow
[2020-10-31 16:28] LABS: Glucose,Whole Blood 115 mg/dL (75-99)
[2020-10-31 18:16] VITALS: BP 105/41; PULSE 66; RESP 18; TEMP 99
[2020-10-31 22:23] LABS: Hepatitis B Surface AB- Quant 169.7 mIU/mL; Hepatitis B Surface Antibody Reactive (Non-Reactive); Hepatitis B Surface Antigen Non-Reactive (Non-Reactive)
== END 2020-10-31 18:42 | disposition home or self-care (01) | DRG 947 ==
LOC: EC 00:13 → 3SCARD 01:04
PROVIDERS: ADMIT Hospitalist; ATTEND Hospitalist
PROC: 0W9G3ZZ Drainage of Peritoneal Cavity, Percutaneous Approach (ICD-10-PCS; principal; 2020-10-30)
PROC: 5A1D70Z Performance of Urinary Filtration, Intermittent, Less than 6 Hours Per Day (ICD-10-PCS; 2020-10-31)
DX: R18.8 Other ascites (principal); N18.6 End stage renal disease; J91.8 Pleural effusion in other conditions classified elsewhere; N17.9 Acute kidney failure, unspecified; I12.0 Hypertensive chronic kidney disease with stage 5 chronic kidney disease or end stage renal disease; E11.22 Type 2 diabetes mellitus with diabetic chronic kidney disease; D63.1 Anemia in chronic kidney disease; E78.5 Hyperlipidemia, unspecified; Z79.4 Long term (current) use of insulin; Z79.82 Long term (current) use of aspirin; Z79.899 Other long term (current) drug therapy; Z83.3 Family history of diabetes mellitus; Z87.01 Personal history of pneumonia (recurrent); Z87.891 Personal history of nicotine dependence; Z99.2 Dependence on renal dialysis; K21.9 Gastro-esophageal reflux disease without esophagitis; E87.70 Fluid overload, unspecified; I50.9 Heart failure, unspecified
CPT/HCPCS: 49083; 71046; 80053; 82945; 83615; 83735; 84100; 84157; 85025; 85049; 85610; 86706; 87070; 87075; 87205; 87340; 88104; 88305; 89050; 90935; 93306; 99285

== ENCOUNTER 2021-03-30 12:18 | Day surgery (SDC) | payer MEDICARE, BC ==
[2021-03-30 13:03] LABS: Mean Platelet Volume 7.8; Platelet Count 320 k/uL (150-450)
[2021-03-30 13:14] LABS: Prothrombin Time 10.7 sec (9.0-12.0)
[2021-03-30] MEDS: ALBUMIN HUMAN 25% 50 ML in EMPTY BAG 1 BAG IVPB SCH ×2 (14:11→14:36)
[2021-03-30 14:31] VITALS: RESP 18; TEMP 98.1
[2021-03-30 15:49] VITALS: BP 152/66; PULSE 58
--- NOTE | 2021-03-30 15:59 | US ---
EXAMINATION TYPE: US paracentesis abd w/image DATE OF EXAM: 03/30/2021 COMPARISON: NONE HISTORY: Ascites. PROCEDURE: Maximal barrier technique was utilized. The skin overlying a suitable pocket of fluid was localized with ultrasound and the overlying skin was prepped and draped. Ultrasound was utilized with sterile technique. Lidocaine was used for local anesthesia and a skin stephanie made with a scalpel. Catheter was advanced under direct ultrasound guidance into a suitable pocket of fluid and approximately 8.4 liter s of serous fluid were removed. Catheter was withdrawn and hemostasis achieved. There is no immedia te complication; the patient is discharged in stable condition. IMPRESSION: STATUS POST ULTRASOUND GUIDED PARACENTESIS FOR PALLIATION OF ASCITES. THIS PROCEDURE WA S PERFORMED BY THE UNDERSIGNED.
== END 2021-03-30 15:54 | disposition home or self-care (01) ==
LOC: RADPROMAIN 12:18
PROVIDERS: ATTEND Internal Medicine
DX: R18.8 Other ascites (principal)
CPT/HCPCS: 49083; 82565; 82947; 85049; 85610; 36415; P9047

== ENCOUNTER 2021-09-16 12:47 | Day surgery (SDC) | payer BC, MEDICARE ==
[2021-09-16 13:17] VITALS: RESP 16; TEMP 98.8
[2021-09-16 13:22] LABS: Mean Platelet Volume 8.1; Platelet Count 319 k/uL (150-450)
[2021-09-16 13:41] LABS: Prothrombin Time 10.7 sec (9.0-12.0)
[2021-09-16] MEDS: ALBUMIN HUMAN 25% 50 ML in EMPTY BAG 1 BAG IVPB SCH ×2 (13:54→14:08)
[2021-09-16 15:36] VITALS: BP 203/94; PULSE 74
--- NOTE | 2021-09-21 08:26 | US ---
Ultrasound-guided paracentesis. DATE OF EXAM: 09/16/2021 CLINICAL HISTORY: Ascites The procedure was discussed with the patient. The risks, complications, benefits, and alternatives we re discussed and any questions were answered. Informed consent was obtained. The patient was placed s upine on the ultrasound table and prepped and draped in the usual sterile fashion. All elements of maximal barrier technique were utilized. Under ultrasound guidance, access into the right lower quadrant was obtained, via the paracentesis catheter system and direct ultrasound guidanc e. Approximately 9.6 liters of straw-colored fluid was removed. The patient was stable throughout the pr ocedure and remained stable upon discharge from Department of Radiology. IMPRESSION: Successful paracentesis under ultrasound guidance.
== END 2021-09-16 15:25 | disposition home or self-care (01) ==
LOC: RADPROMAIN 12:47
PROVIDERS: ATTEND Internal Medicine
DX: R18.8 Other ascites (principal); I50.9 Heart failure, unspecified
CPT/HCPCS: 82565; 82947; 85049; 85610; 36415; 49083; P9047

== ENCOUNTER 2021-09-16 15:24 | Emergency (ER) | payer MEDICARE, BC ==
[2021-09-16 15:31] VITALS: TEMP 97.8
[2021-09-16] MEDS ORDERED: MORPHINE SULFATE 4 MG/ML SYRINGE IVP STA (15:57)
--- NOTE | 2021-09-16 16:02 | ED ---
General Adult HPI - General Chief complaint: Recheck/Abnormal Lab/Rx Stated complaint: Hypertensive Time Seen by Provider: 09/16/21 15:50 Source: patient, RN/MD, RN notes reviewed, old records reviewed Mode of arrival: wheelchair Limitations: no limitations - History of Present Illness Initial comments: 61-year-old male presents to the emergency room with hypertension. Patient states that he had dialysis this morning, then had a paracentesis with 8 liters drained. He states he normally has pain after paracentesis for a couple days. His blood pressure was elevated and was sent to the emergency room for evaluation. He denies any fevers, no nausea, vomiting or diarrhea. No chest pain or shortness of breath. -: hour(s) (12) Severity scale (1-10): 9 Quality: aching, other (pressure "someone standing on me") Consistency: constant Improves with: none Treatments Prior to Arrival: other (Dialysis and paracentesis) - Related Data Home Medications Medication Instructions Recorded Confirmed Albuterol Sulfate [Ventolin HFA] 1 - 2 puff INHALATION RT-Q6H PRN 07/17/20 09/16/21 Calcium Acetate [PhosLo] 1,334 mg PO AC-TID 07/17/20 09/16/21 Dialyvite 1 tab PO DAILY 07/17/20 09/16/21 Furosemide [Lasix] 80 mg PO BID 07/17/20 09/16/21 Loratadine 10 mg PO DAILY 07/17/20 09/16/21 Omeprazole 20 mg PO DAILY 07/17/20 09/16/21 carvediloL [Coreg] 25 mg PO BID 07/17/20 09/16/21 lisinopriL 40 mg PO DAILY 07/17/20 09/16/21 Cyclobenzaprine [Flexeril] 5 mg PO DAILY PRN 10/30/20 09/16/21 Linagliptin [Tradjenta] 5 mg PO DAILY 10/30/20 09/16/21 INSULIN LISPRO (humaLOG) [humaLOG] 0 units SQ DIRECTED 03/25/21 09/16/21 Ferrous Sulfate [Feosol] 325 mg PO DAILY 09/08/21 09/16/21 Previous Rx's Medication Instructions Recorded amLODIPine [Norvasc] 10 mg PO DAILY #30 tab 09/21/17 Atorvastatin [Lipitor] 40 mg PO HS tab 07/24/20 cloNIDine HCL [Catapres] 0.1 mg PO BID tab 07/24/20 Allergies Allergy/AdvReac Type Severity Reaction Status Date / Time No Known Allergies Allergy Verified 09/16/21 15:31 Review of Systems ROS Statement: Those systems with pertinent positive or pertinent negative responses have been documented in the HPI. ROS Other: All systems not noted in ROS Statement are negative. Past Medical History Past Medical History: Diabetes Mellitus, Dialysis, GERD/Reflux, Hyperlipidemia, Hypertension, Pneumonia, Renal Disease Additional Past Medical History / Comment(s): End stage renal disease currently on hemodialysis, diabetes mellitus, hypertension, acid reflux and recent hospitalization for right lung pneumonia and parapneumonic effusion. 11 History of Any Multi-Drug Resistant Organisms: None Reported Past Surgical History: Hernia Repair Additional Past Surgical History / Comment(s): umb hernia repair/mesh, rt upper chest dialysis cath Past Anesthesia/Blood Transfusion Reactions: No Reported Reaction Additional Past Anesthesia/Blood Transfusion Reaction / Comment(s): clausterphobia Past Psychological History: No Psychological Hx Reported Smoking Status: Former smoker Past Alcohol Use History: None Reported Past Drug Use History: None Reported - Past Family History Mother Family Medical History: No Reported History Additional Family Medical History / Comment(s): alive healthy age 82 Father Family Medical History: Diabetes Mellitus, Liver Disease, Renal Disease Additional Family Medical History / Comment(s): kidney/liver failure General Exam Limitations: no limitations General appearance: alert, in no apparent distress Head exam: Present: atraumatic, normocephalic ENT exam: Present: mucous membranes moist Neck exam: Present: normal inspection. Absent: tenderness, meningismus Respiratory exam: Present: normal lung sounds bilaterally. Absent: respiratory distress, accessory muscle use Cardiovascular Exam: Present: regular rate GI/Abdominal exam: Present: soft, tenderness (right side Abdomen, site of paracentesis). Absent: guarding, rebound, rigid Extremities exam: Present: normal capillary refill Back exam: Absent: tenderness, CVA tenderness (R), CVA tenderness (L) Neurological exam: Present: alert, oriented X3 Psychiatric exam: Present: normal affect, normal mood Skin exam: Present: warm, dry, normal color. Absent: cyanosis, diaphoretic Course Vital Signs 09/16/21 09/16/21 09/16/21 15:28 16:22 16:47 Temperature 97.8 F Pulse Rate 78 Respiratory 20 Rate Blood Pressure 205/90 209/97 191/91 O2 Sat by Pulse 95 Oximetry 09/16/21 18:00 Temperature Pulse Rate Respiratory Rate Blood Pressure 188/88 O2 Sat by Pulse Oximetry - Reevaluation(s) Reevaluation #1: 09/16/21 18:09 Blood pressure remains elevated at 188/88. He was given a second dose of hydralazine Time: 18:09 Reevaluation #2: 09/16/21 18:34 Second dose of hydralazine given blood pressure came down to 168/93. Time: 18:34 Medical Decision Making - Medical Decision Making Patient was given morphine for discomfort. He states he normally has discomfort in the abdomen after paracentesis for a couple days. 3 months ago they drained 11 L today 8 L off. The patient was given morphine for pain and is feeling better. He was given hydralazine for his elevated blood pressure and came down to 168/93. He feels comfortable going home. He was given a Tylenol 3 starter pack for pain. He is scheduled to have dialysis again Monday morning. He was directed to return to the emergency room with any new or concerning symptoms including fever or increased pain. Case discussed with Dr. Coyle - Lab Data Result diagrams: 09/16/21 16:30 09/16/21 16:30 Lab Results 09/16/21 09/16/21 Range/Units 16:30 16:30 WBC 5.5 (3.8-10.6) k/uL RBC 3.52 L (4.30-5.90) m/uL Hgb 11.0 L (13.0-17.5) gm/dL Hct 33.3 L (39.0-53.0) % MCV 94.6 (80.0-100.0) fL MCH 31.3 (25.0-35.0) pg MCHC 33.1 (31.0-37.0) g/dL RDW 13.7 (11.5-15.5) % Plt Count 321 (150-450) k/uL MPV 8.3 Neutrophils % 74 % Lymphocytes % 13 % Monocytes % 9 % Eosinophils % 2 % Basophils % 1 % Neutrophils # 4.1 (1.3-7.7) k/uL Lymphocytes # 0.7 L (1.0-4.8) k/uL Monocytes # 0.5 (0-1.0) k/uL Eosinophils # 0.1 (0-0.7) k/uL Basophils # 0.1 (0-0.2) k/uL Sodium 139 (137-145) mmol/L Potassium 4.5 (3.5-5.1) mmol/L Chloride 94 L (98-107) mmol/L Carbon Dioxide 34 H (22-30) mmol/L Anion Gap 11 mmol/L BUN 25 H (9-20) mg/dL Creatinine 5.21 H (0.66-1.25) mg/dL Est GFR (CKD-EPI)AfAm 13 (>60 ml/min/1.73 sqM) Est GFR (CKD-EPI)NonAf 11 (>60 ml/min/1.73 sqM) Glucose 85 (74-99) mg/dL Calcium 9.5 (8.4-10.2) mg/dL Total Bilirubin 0.8 (0.2-1.3) mg/dL AST 27 (17-59) U/L ALT 12 (4-49) U/L Alkaline Phosphatase 125 (38-126) U/L Total Protein 7.3 (6.3-8.2) g/dL Albumin 4.4 (3.5-5.0) g/dL Disposition Clinical Impression: Hypertension Disposition: HOME SELF-CARE Condition: Good Instructions (If sedation given, give patient instructions): Abdominal Pain (ED), Hypertension (ED) Additional Instructions: Return to the emergency room with any increased pain, fevers or difficulty breathing. Follow-up with the primary care doctor next week. Continue with dialysis Monday morning. Take Tylenol as needed for pain Is patient prescribed a controlled substance at d/c from ED?: No Referrals: Hayden Cervantes MD [Primary Care Provider] - 1-2 days Time of Disposition: 18:34
[2021-09-16] MEDS ORDERED: hydrALAZINE HCL 20 MG/ML 1 ML VIAL IVP STA ×2 (16:35→18:08)
[2021-09-16 17:05] LABS: Albumin 4.4 g/dL (3.5-5.0); Calcium 9.5 mg/dL (8.4-10.2); Potassium 4.5 mmol/L (3.5-5.1); Total Bilirubin 0.8 mg/dL (0.2-1.3); Total Protein 7.3 g/dL (6.3-8.2)
[2021-09-16 17:09] LABS: Basophils # (A) 0.1 k/uL (0-0.2); Basophils % (A) 1 %; Eosinophils # (A) 0.1 k/uL (0-0.7); Eosinophils % (A) 2 %; HCT 33.3 % (39.0-53.0); Lymphocytes # (A) 0.7 k/uL (1.0-4.8); Lymphocytes % (A) 13 %; MCH 31.3 pg (25.0-35.0); MCHC 33.1 g/dL (31.0-37.0); MCV 94.6 fL (80.0-100.0); Mean Platelet Volume 8.3; Monocytes # (A) 0.5 k/uL (0-1.0); Monocytes % (A) 9 %; Neutrophils # (A) 4.1 k/uL (1.3-7.7); Neutrophils % (A) 74 %; Platelet Count 321 k/uL (150-450); RBC 3.52 m/uL (4.30-5.90); RDW 13.7 % (11.5-15.5); WBC 5.5 k/uL (3.8-10.6)
[2021-09-16] MEDS ORDERED: ACET/COD 300 MG/30 MG STARTER PACK 6 TAB BTL PO STA (17:24)
[2021-09-16 18:34] VITALS: BP 168/93; PULSE 72; RESP 18
== END 2021-09-16 18:54 | disposition home or self-care (01) ==
LOC: EC 15:24
DX: I10 Essential (primary) hypertension (principal); E11.9 Type 2 diabetes mellitus without complications; K21.9 Gastro-esophageal reflux disease without esophagitis; E78.5 Hyperlipidemia, unspecified; N18.6 End stage renal disease; Z99.2 Dependence on renal dialysis; Z87.891 Personal history of nicotine dependence; Z79.899 Other long term (current) drug therapy
CPT/HCPCS: 99283 ×2; 96374 ×2; 96375 ×2; 96376 ×2; 36415 ×2; 80053; 82565; 82947; 85025; 85049; 85610; J2270; J0360

== ENCOUNTER 2021-09-30 12:32 | Day surgery (SDC) | payer BC, MEDICARE ==
[2021-09-30 13:20] LABS: Mean Platelet Volume 8.1; Platelet Count 358 k/uL (150-450)
[2021-09-30 13:40] LABS: Prothrombin Time 10.6 sec (9.0-12.0)
[2021-09-30] MEDS: ALBUMIN HUMAN 25% 50 ML in EMPTY BAG 1 BAG IVPB SCH ×4 (14:28→15:10)
[2021-09-30 14:51] VITALS: PULSE 54; RESP 16
[2021-09-30 16:03] VITALS: BP 150/73
--- NOTE | 2021-10-01 09:54 | US ---
EXAMINATION TYPE: US paracentesis abd w/image DATE OF EXAM: 09/30/2021 COMPARISON: NONE HISTORY: Ascites. PROCEDURE: Maximal barrier technique was utilized. The skin overlying a suitable pocket of fluid was localized with ultrasound and the overlying skin was prepped and draped. Ultrasound was utilized with sterile technique. Lidocaine was used for local anesthesia and a skin stephanie made with a scalpel. Catheter was advanced under direct ultrasound guidance into a suitable pocket of fluid and approximately 6 liters of ascites fluid were removed. Catheter was withdrawn and hemostasis achieved. There is no immediat e complication; the patient is discharged in stable condition. IMPRESSION: STATUS POST ULTRASOUND GUIDED PARACENTESIS FOR PALLIATION OF ASCITES. THIS PROCEDURE WA S PERFORMED BY THE UNDERSIGNED.
== END 2021-09-30 16:05 | disposition home or self-care (01) ==
LOC: RADPROMAIN 12:32
PROVIDERS: ATTEND Internal Medicine
DX: R18.8 Other ascites (principal); Z79.899 Other long term (current) drug therapy; Z87.891 Personal history of nicotine dependence; Z83.3 Family history of diabetes mellitus; Z84.1 Family history of disorders of kidney and ureter; Z84.89 Family history of other specified conditions
CPT/HCPCS: 82565; 82947; 85049; 85610; 36415; 49083; P9047

== ENCOUNTER 2021-10-28 12:54 | Day surgery (SDC) | payer MEDICARE ==
[2021-10-28 13:25] LABS: Mean Platelet Volume 7.7; Platelet Count 346 k/uL (150-450)
[2021-10-28 13:32] LABS: INR 0.9 (<1.2); Prothrombin Time 10.2 sec (9.0-12.0)
[2021-10-28 13:33] VITALS: TEMP 98
[2021-10-28] MEDS: ALBUMIN HUMAN 25% 50 ML in EMPTY BAG 1 BAG IVPB SCH ×2 (14:00→14:15)
[2021-10-28 14:08] VITALS: RESP 15
[2021-10-28 15:00] VITALS: BP 162/71; PULSE 68
--- NOTE | 2021-10-28 15:54 | US ---
Ultrasound-guided paracentesis. DATE OF EXAM: 10/28/2021 CLINICAL HISTORY: Ascites The procedure was discussed with the patient. The risks, complications, benefits, and alternatives we re discussed and any questions were answered. Informed consent was obtained. The patient was placed s upine on the ultrasound table and prepped and draped in the usual sterile fashion. All elements of maximal barrier technique were utilized. Under ultrasound guidance, access into the right lower quadrant was obtained, via the paracentesis catheter system and direct ultrasound guidanc e. Approximately 6.5 liters of straw-colored fluid was removed. The patient was stable throughout the pr ocedure and remained stable upon discharge from Department of Radiology. IMPRESSION: Successful paracentesis under ultrasound guidance.
== END 2021-10-28 15:06 | disposition home or self-care (01) ==
LOC: RADPROMAIN 12:54
PROVIDERS: ATTEND Internal Medicine
DX: R18.8 Other ascites (principal)
CPT/HCPCS: 82565; 82947; 85049; 85610; 36415; 49083; P9047

== ENCOUNTER 2021-11-11 12:42 | Day surgery (SDC) | payer MEDICARE ==
[2021-11-11 13:06] LABS: Mean Platelet Volume 8.6; Platelet Count 289 k/uL (150-450)
[2021-11-11 13:11] VITALS: TEMP 97.8
[2021-11-11 13:13] LABS: Prothrombin Time 10.9 sec (9.0-12.0)
[2021-11-11] MEDS: ALBUMIN HUMAN 25% 50 ML in EMPTY BAG 1 BAG IVPB SCH ×2 (13:47→14:01)
[2021-11-11 14:56] VITALS: BP 154/72; PULSE 59; RESP 16
--- NOTE | 2021-11-11 15:52 | US ---
Ultrasound-guided paracentesis. DATE OF EXAM: 11/11/2021 CLINICAL HISTORY: Ascites The procedure was discussed with the patient. The risks, complications, benefits, and alternatives we re discussed and any questions were answered. Informed consent was obtained. The patient was placed s upine on the ultrasound table and prepped and draped in the usual sterile fashion. All elements of maximal barrier technique were utilized. Under ultrasound guidance, access into the right lower quadrant was obtained, via the paracentesis catheter system and direct ultrasound guidanc e. Approximately 5.8 liters of straw-colored fluid was removed. The patient was stable throughout the pr ocedure and remained stable upon discharge from Department of Radiology. IMPRESSION: Successful paracentesis under ultrasound guidance.
== END 2021-11-11 14:53 | disposition home or self-care (01) ==
LOC: RADPROMAIN 12:42
PROVIDERS: ATTEND Internal Medicine
DX: R18.8 Other ascites (principal)
CPT/HCPCS: 82565; 82947; 85049; 85610; 36415; 49083; P9047

== ENCOUNTER 2021-11-25 12:50 | Day surgery (SDC) | payer MEDICARE ==
[2021-11-25] MEDS ORDERED: ALBUMIN HUMAN 25% 50 ML in EMPTY BAG 1 BAG IVPB SCH (13:15)
[2021-11-25 13:47] LABS: Mean Platelet Volume 8.1; Platelet Count 319 k/uL (150-450)
[2021-11-25 13:54] LABS: Prothrombin Time 10.5 sec (9.0-12.0)
[2021-11-25 13:56] VITALS: TEMP 98.1
[2021-11-25] MEDS ORDERED: cloNIDine HCL 0.1 MG TAB PO STA (14:18)
[2021-11-25] MEDS ORDERED: hydrALAZINE HCL 50 MG TAB PO STA (14:21)
[2021-11-25 15:56] VITALS: RESP 14
[2021-11-25 15:57] VITALS: BP 181/86; PULSE 68
--- NOTE | 2021-11-29 09:48 | US ---
Ultrasound-guided paracentesis. DATE OF EXAM: 11/25/2021 CLINICAL HISTORY: Ascites The procedure was discussed with the patient. The risks, complications, benefits, and alternatives we re discussed and any questions were answered. Informed consent was obtained. The patient was placed s upine on the ultrasound table and prepped and draped in the usual sterile fashion. All elements of maximal barrier technique were utilized. Under ultrasound guidance, access into the right lower quadrant was obtained, via the paracentesis catheter system and direct ultrasound guidanc e. Approximately 6.5 liters of straw-colored fluid was removed. The patient was stable throughout the pr ocedure and remained stable upon discharge from Department of Radiology. IMPRESSION: Successful paracentesis under ultrasound guidance.
== END 2021-11-25 15:55 | disposition home or self-care (01) ==
LOC: RADPROMAIN 12:50
PROVIDERS: ATTEND Internal Medicine
DX: R18.8 Other ascites (principal)
CPT/HCPCS: 36415; 49083; 82565; 82947; 85049; 85610

== ENCOUNTER 2021-12-09 12:51 | Day surgery (SDC) | payer MEDICARE ==
[2021-12-09] MEDS ORDERED: ALBUMIN HUMAN 25% 50 ML in EMPTY BAG 1 BAG IVPB SCH (13:00)
[2021-12-09 13:24] LABS: Mean Platelet Volume 9.1; Platelet Count 296 k/uL (150-450)
[2021-12-09 13:36] LABS: Prothrombin Time 10.6 sec (9.0-12.0)
[2021-12-09 13:40] VITALS: TEMP 98.5
[2021-12-09] MEDS: ALBUMIN HUMAN 25% 50 ML in EMPTY BAG 1 BAG IVPB SCH ×2 (14:05→14:25)
[2021-12-09 14:49] VITALS: RESP 14
[2021-12-09 15:23] VITALS: BP 167/81; PULSE 60
--- NOTE | 2021-12-09 15:48 | US ---
Ultrasound-guided paracentesis. DATE OF EXAM: 12/09/2021 CLINICAL HISTORY: Ascites The procedure was discussed with the patient. The risks, complications, benefits, and alternatives we re discussed and any questions were answered. Informed consent was obtained. The patient was placed s upine on the ultrasound table and prepped and draped in the usual sterile fashion. All elements of maximal barrier technique were utilized. Under ultrasound guidance, access into the right lower quadrant was obtained, via the paracentesis catheter system and direct ultrasound guidanc e. Approximately 7 liters of straw-colored fluid was removed. The patient was stable throughout the proc edure and remained stable upon discharge from Department of Radiology. IMPRESSION: Successful paracentesis under ultrasound guidance.
== END 2021-12-09 15:21 | disposition home or self-care (01) ==
LOC: RADPROMAIN 12:51
PROVIDERS: ATTEND Internal Medicine
DX: R18.8 Other ascites (principal)
CPT/HCPCS: 82565; 82947; 85049; 85610; 36415; 49083; P9047

== ENCOUNTER 2021-12-23 12:52 | Day surgery (SDC) | payer MEDICARE ==
[2021-12-23 13:32] VITALS: RESP 16; TEMP 97.4
[2021-12-23 13:32] LABS: Mean Platelet Volume 8.7; Platelet Count 318 k/uL (150-450)
[2021-12-23 13:46] LABS: INR 0.9 (<1.2); Prothrombin Time 10.3 sec (9.0-12.0)
[2021-12-23] MEDS: ALBUMIN HUMAN 25% 50 ML in EMPTY BAG 1 BAG IVPB SCH ×2 (14:11→14:26)
[2021-12-23 15:46] VITALS: BP 141/67; PULSE 54
--- NOTE | 2021-12-24 08:56 | US ---
EXAMINATION TYPE: US paracentesis abd w/image DATE OF EXAM: 12/23/2021 COMPARISON: NONE HISTORY: Ascites. PROCEDURE: Maximal barrier technique was utilized. The skin overlying a suitable pocket of fluid was localized with ultrasound and the overlying skin was prepped and draped. Ultrasound was utilized with sterile technique. Lidocaine was used for local anesthesia and a skin stephanie made with a scalpel. Catheter was advanced under direct ultrasound guidance into a suitable pocket of fluid and approximately 7.1 liter s of ascites fluid were removed. Catheter was withdrawn and hemostasis achieved. There is no immedi ate complication; the patient is discharged in stable condition. IMPRESSION: STATUS POST ULTRASOUND GUIDED PARACENTESIS FOR PALLIATION OF ASCITES. THIS PROCEDURE WA S PERFORMED BY THE UNDERSIGNED.
== END 2021-12-23 15:20 | disposition home or self-care (01) ==
LOC: RADPROMAIN 12:52
PROVIDERS: ATTEND Internal Medicine
DX: R18.8 Other ascites (principal)
CPT/HCPCS: 82565; 82947; 85049; 85610; 36415; 49083; P9047

== ENCOUNTER 2022-01-06 12:42 | Day surgery (SDC) | payer MEDICARE ==
[2022-01-06 13:25] LABS: Mean Platelet Volume 8.5; Platelet Count 279 k/uL (150-450)
[2022-01-06 13:45] VITALS: TEMP 98.4
[2022-01-06] MEDS: ALBUMIN HUMAN 25% 50 ML in EMPTY BAG 1 BAG IVPB SCH ×2 (14:37→14:56)
[2022-01-06 14:44] VITALS: RESP 20
[2022-01-06 15:39] VITALS: BP 173/83; PULSE 59
--- NOTE | 2022-01-06 16:05 | US ---
Ultrasound-guided paracentesis. DATE OF EXAM: 01/06/2022 CLINICAL HISTORY: Ascites The procedure was discussed with the patient. The risks, complications, benefits, and alternatives we re discussed and any questions were answered. Informed consent was obtained. The patient was placed s upine on the ultrasound table and prepped and draped in the usual sterile fashion. All elements of maximal barrier technique were utilized. Under ultrasound guidance, access into the right lower quadrant was obtained, via the paracentesis catheter system and direct ultrasound guidanc e. Approximately 4.5 liters of straw-colored fluid was removed. The patient was stable throughout the pr ocedure and remained stable upon discharge from Department of Radiology. IMPRESSION: Successful paracentesis under ultrasound guidance.
== END 2022-01-06 15:25 | disposition home or self-care (01) ==
LOC: RADPROMAIN 12:42
PROVIDERS: ATTEND Internal Medicine
DX: R18.8 Other ascites (principal)
CPT/HCPCS: 82565; 82947; 85049; 85610; 36415; 49083; P9047

== ENCOUNTER 2022-01-18 12:46 | Day surgery (SDC) | payer MEDICARE ==
[2022-01-18 13:23] LABS: Mean Platelet Volume 8.9; Platelet Count 280 k/uL (150-450)
[2022-01-18 13:32] VITALS: RESP 16; TEMP 98
[2022-01-18] MEDS: ALBUMIN HUMAN 25% 50 ML in EMPTY BAG 1 BAG IVPB SCH ×2 (14:03→14:23)
[2022-01-18 15:10] VITALS: BP 141/76; PULSE 65
--- NOTE | 2022-01-19 08:51 | US ---
Ultrasound-guided paracentesis. DATE OF EXAM: 01/18/2022 CLINICAL HISTORY: Ascites The procedure was discussed with the patient. The risks, complications, benefits, and alternatives we re discussed and any questions were answered. Informed consent was obtained. The patient was placed s upine on the ultrasound table and prepped and draped in the usual sterile fashion. All elements of maximal barrier technique were utilized. Under ultrasound guidance, access into the right lower quadrant was obtained, via the paracentesis catheter system and direct ultrasound guidanc e. Approximately 5.5 liters of straw-colored fluid was removed. The patient was stable throughout the pr ocedure and remained stable upon discharge from Department of Radiology. IMPRESSION: Successful paracentesis under ultrasound guidance.
== END 2022-01-18 15:10 | disposition home or self-care (01) ==
LOC: RADPROMAIN 12:46
PROVIDERS: ATTEND Internal Medicine
DX: R18.8 Other ascites (principal)
CPT/HCPCS: 82565; 82947; 85049; 85610; 36415; 49083; P9047

== ENCOUNTER 2022-02-03 12:45 | Day surgery (SDC) | payer MEDICARE ==
[2022-02-03 13:17] LABS: Platelet Count 323 k/uL (150-450)
[2022-02-03 13:28] LABS: Prothrombin Time 10.3 sec (9.0-12.0)
[2022-02-03 13:32] VITALS: TEMP 97.7
[2022-02-03] MEDS: ALBUMIN HUMAN 25% 50 ML in EMPTY BAG 1 BAG IVPB SCH ×2 (14:09→14:22)
[2022-02-03 15:21] VITALS: BP 152/71; PULSE 58; RESP 14
--- NOTE | 2022-02-04 09:27 | US ---
Ultrasound-guided paracentesis. DATE OF EXAM: 02/03/2022 CLINICAL HISTORY: Ascites The procedure was discussed with the patient. The risks, complications, benefits, and alternatives we re discussed and any questions were answered. Informed consent was obtained. The patient was placed s upine on the ultrasound table and prepped and draped in the usual sterile fashion. All elements of maximal barrier technique were utilized. Under ultrasound guidance, access into the left lower quadrant was obtained, via the paracentesis catheter system and direct ultrasound guidance . Approximately 5.8 liters of straw-colored fluid was removed. The patient was stable throughout the pr ocedure and remained stable upon discharge from Department of Radiology. IMPRESSION: Successful paracentesis under ultrasound guidance.
== END 2022-02-03 15:15 | disposition home or self-care (01) ==
LOC: RADPROMAIN 12:45
PROVIDERS: ATTEND Internal Medicine
DX: R18.8 Other ascites (principal)
CPT/HCPCS: 82565; 82947; 85049; 85610; 36415; 49083; P9047

== ENCOUNTER 2022-02-12 07:00 | Inpatient (IN) | payer MEDICARE ==
[2022-02-12 07:30] LABS: Glucose,Whole Blood 183 mg/dL (70-110)
[2022-02-12] MEDS ORDERED: SODIUM CHLORIDE 0.9% 500 ML 500 ML IV ONE ×2 (07:30→09:38)
[2022-02-12 07:46] LABS: Basophils # (A) 0.1 k/uL (0-0.2); Basophils % (A) 0 %; Eosinophils # (A) 0.2 k/uL (0-0.7); Eosinophils % (A) 1 %; HCT 31.4 % (39.0-53.0); HGB 10.9 gm/dL (13.0-17.5); Lymphocytes # (A) 0.4 k/uL (1.0-4.8); Lymphocytes % (A) 2 %; MCHC 34.8 g/dL (31.0-37.0); MCV 91.8 fL (80.0-100.0); Mean Platelet Volume 9.7; Monocytes # (A) 0.7 k/uL (0-1.0); Monocytes % (A) 3 %; Neutrophils # (A) 23.3 k/uL (1.3-7.7); Neutrophils % (A) 93 %; Platelet Count 212 k/uL (150-450); RBC 3.42 m/uL (4.30-5.90); RDW 14.7 % (11.5-15.5); WBC 25.1 k/uL (3.8-10.6)
--- NOTE | 2022-02-12 07:47 | ED ---
General Adult HPI - General Chief complaint: Dizziness Stated complaint: Low BP Time Seen by Provider: 02/12/22 07:15 Source: patient, RN notes reviewed, old records reviewed Mode of arrival: wheelchair - History of Present Illness Initial comments: This is a 61-year-old male who presents emergency department with past medical history significant for renal failure and is on dialysis and has history of high blood pressure. Patient was supposed be dialyzed today but when he showed up to dialysis blood pressure was low so they sent into the emergency department. Patient states she's been feeling weak ever since he had said his teeth worked on last week. Patient denies any pain currently. Patient only complains of generalized weakness and somewhat short of breath. Patient denies any palpitations. Patient denies any fever chills or cough. Patient denies abdominal pain patient denies nausea vomiting diarrhea. Patient denies any recent injury or trauma. He denies headache patient denies any numbness weakness. - Related Data Home Medications Medication Instructions Recorded Confirmed Albuterol Sulfate [Ventolin HFA] 1 - 2 puff INHALATION RT-Q6H PRN 07/17/20 02/03/22 Calcium Acetate [PhosLo] 1,334 mg PO AC-TID 07/17/20 02/03/22 Furosemide [Lasix] 80 mg PO BID 07/17/20 02/03/22 Loratadine 10 mg PO DAILY 07/17/20 02/03/22 carvediloL [Coreg] 25 mg PO BID 07/17/20 02/03/22 lisinopriL 40 mg PO DAILY 07/17/20 02/03/22 INSULIN LISPRO (humaLOG) [humaLOG] 0 units SQ DIRECTED 03/25/21 02/03/22 Ferrous Sulfate [Feosol] 325 mg PO DAILY 09/08/21 02/03/22 Ibuprofen [Motrin] 400 mg PO Q6HR PRN 11/11/21 02/03/22 cloNIDine HCL [Catapres] 0.1 mg PO TID 11/11/21 02/03/22 hydrALAZINE HCL [Apresoline] 100 mg PO TID 11/11/21 02/03/22 Acetaminophen-Codeine 300-30mg 1 - 2 tab PO Q4-6H PRN 02/03/22 02/03/22 [Tylenol w/codeine #3] Previous Rx's Medication Instructions Recorded amLODIPine [Norvasc] 10 mg PO DAILY #30 tab 09/21/17 Allergies Allergy/AdvReac Type Severity Reaction Status Date / Time No Known Allergies Allergy Verified 02/12/22 07:19 Review of Systems ROS Statement: Those systems with pertinent positive or pertinent negative responses have been documented in the HPI. ROS Other: All systems not noted in ROS Statement are negative. Past Medical History Past Medical History: Diabetes Mellitus, Dialysis, GERD/Reflux, Hyperlipidemia, Hypertension, Pneumonia, Renal Disease Additional Past Medical History / Comment(s): End stage renal disease currently on hemodialysis, diabetes mellitus, hypertension, acid reflux and recent hospitalization for right lung pneumonia and parapneumonic effusion. History of Any Multi-Drug Resistant Organisms: None Reported Past Surgical History: Hernia Repair Additional Past Surgical History / Comment(s): umb hernia repair/mesh, rt upper chest dialysis cath, multiple large volume paracentesis procedures Past Anesthesia/Blood Transfusion Reactions: No Reported Reaction Additional Past Anesthesia/Blood Transfusion Reaction / Comment(s): clausterphobia Past Psychological History: No Psychological Hx Reported Smoking Status: Former smoker Past Alcohol Use History: None Reported Past Drug Use History: None Reported - Past Family History Mother Family Medical History: No Reported History Additional Family Medical History / Comment(s): alive healthy age 82 Father Family Medical History: Diabetes Mellitus, Liver Disease, Renal Disease Additional Family Medical History / Comment(s): kidney/liver failure General Exam - General Exam Comments Initial Comments: GENERAL: Patient is well-developed and well-nourished. Patient is nontoxic and well- hydrated and is in mild distress. ENT: Neck is soft and supple. No significant lymphadenopathy is noted. Oropharynx is clear. Moist mucous membranes. Neck has full range of motion without eliciting any pain. EYES: The sclera were anicteric and conjunctiva were pink and moist. Extraocular movements were intact and pupils were equal round and reactive to light. Eyelids were unremarkable. PULMONARY: Unlabored respirations. Good breath sounds bilaterally. No audible rales rhonchi or wheezing was noted. CARDIOVASCULAR: Patient is bradycardic at about 50 beats a minute. ABDOMEN: Soft and nontender with normal bowel sounds. SKIN: Skin is clear with no lesions or rashes and otherwise unremarkable. NEUROLOGIC: Patient is alert and oriented x3. Cranial nerves II through XII are grossly intact. Motor and sensory are also intact. Normal speech, volume and content. Symmetrical smile. MUSCULOSKELETAL: Normal extremities with adequate strength and full range of motion. LYMPHATICS: No significant lymphadenopathy is noted PSYCHIATRIC: Normal psychiatric evaluation. Course Vital Signs 02/12/22 02/12/22 02/12/22 07:14 07:39 08:30 Temperature 97.5 F L Pulse Rate 53 L 49 L Respiratory 18 16 Rate Blood Pressure 86/52 98/61 96/61 O2 Sat by Pulse 94 L 100 Oximetry 02/12/22 02/12/22 09:00 09:30 Temperature Pulse Rate 50 L 50 L Respiratory 18 18 Rate Blood Pressure 94/60 92/60 O2 Sat by Pulse 99 100 Oximetry Medical Decision Making - Medical Decision Making EKG was interpreted by me. EKG shows sinus bradycardia 50 bpm W[place] interval is 228 QRSs 108 QT interval 486 QTC is 459. Patient's EKG shows no ST segment patient depression. Patient had an elevated white count so started the patient on Rocephin but I don't have a source for infection Chest x-ray was interpreted by me. Chest x-ray showed no acute normalities. I spoke with Dr. Yates she agreed to get the patient dialyzed. I spoke with Dr. rocha he agreed to admit the patient and the patient wrote admitting orders. Patient did receive a liter of fluid while in the emergency department and 2 g of Rocephin. - Lab Data Result diagrams: 02/12/22 07:38 02/12/22 07:38 Lab Results 02/12/22 02/12/22 02/12/22 Range/Units 07:26 07:38 07:38 WBC 25.1 H (3.8-10.6) k/uL RBC 3.42 L (4.30-5.90) m/uL Hgb 10.9 L (13.0-17.5) gm/dL Hct 31.4 L (39.0-53.0) % MCV 91.8 (80.0-100.0) fL MCH 32.0 (25.0-35.0) pg MCHC 34.8 (31.0-37.0) g/dL RDW 14.7 (11.5-15.5) % Plt Count 212 (150-450) k/uL MPV 9.7 Neutrophils % 93 % Lymphocytes % 2 % Monocytes % 3 % Eosinophils % 1 % Basophils % 0 % Neutrophils # 23.3 H (1.3-7.7) k/uL Lymphocytes # 0.4 L (1.0-4.8) k/uL Monocytes # 0.7 (0-1.0) k/uL Eosinophils # 0.2 (0-0.7) k/uL Basophils # 0.1 (0-0.2) k/uL Sodium 134 L (137-145) mmol/L Potassium 3.9 (3.5-5.1) mmol/L Chloride 95 L (98-107) mmol/L Carbon Dioxide 21 L (22-30) mmol/L Anion Gap 18 mmol/L BUN 56 H (9-20) mg/dL Creatinine 6.61 H (0.66-1.25) mg/dL Est GFR (CKD-EPI)AfAm 9 (>60 ml/min/1.73 sqM) Est GFR (CKD-EPI)NonAf 8 (>60 ml/min/1.73 sqM) Glucose 186 H (74-99) mg/dL POC Glucose (mg/dL) 183 H (70-110) mg/dL POC Glu Fruit Grading Supervisor ID Leonila Shane Plasma Lactic Acid Dragan (0.7-2.0) mmol/L Calcium 8.4 (8.4-10.2) mg/dL Magnesium 2.3 (1.6-2.3) mg/dL Total Bilirubin 4.2 H (0.2-1.3) mg/dL AST 224 H (17-59) U/L ALT 92 H (4-49) U/L Alkaline Phosphatase 478 H (38-126) U/L Troponin I (0.000-0.034) ng/mL NT-Pro-B Natriuret Pep pg/mL Total Protein 5.6 L (6.3-8.2) g/dL Albumin 3.0 L (3.5-5.0) g/dL Influenza Type A (PCR) (Not Detectd) Influenza Type B (PCR) (Not Detectd) RSV (PCR) (Not Detectd) SARS-CoV-2 (PCR) (Not Detectd) 02/12/22 02/12/22 02/12/22 Range/Units 07:38 07:38 08:06 WBC (3.8-10.6) k/uL RBC (4.30-5.90) m/uL Hgb (13.0-17.5) gm/dL Hct (39.0-53.0) % MCV (80.0-100.0) fL MCH (25.0-35.0) pg MCHC (31.0-37.0) g/dL RDW (11.5-15.5) % Plt Count (150-450) k/uL MPV Neutrophils % % Lymphocytes % % Monocytes % % Eosinophils % % Basophils % % Neutrophils # (1.3-7.7) k/uL Lymphocytes # (1.0-4.8) k/uL Monocytes # (0-1.0) k/uL Eosinophils # (0-0.7) k/uL Basophils # (0-0.2) k/uL Sodium (137-145) mmol/L Potassium (3.5-5.1) mmol/L Chloride (98-107) mmol/L Carbon Dioxide (22-30) mmol/L Anion Gap mmol/L BUN (9-20) mg/dL Creatinine (0.66-1.25) mg/dL Est GFR (CKD-EPI)AfAm (>60 ml/min/1.73 sqM) Est GFR (CKD-EPI)NonAf (>60 ml/min/1.73 sqM) Glucose (74-99) mg/dL POC Glucose (mg/dL) (70-110) mg/dL POC Glu Fruit Grading Supervisor ID Plasma Lactic Acid Dragan 3.1 H* (0.7-2.0) mmol/L Calcium (8.4-10.2) mg/dL Magnesium (1.6-2.3) mg/dL Total Bilirubin (0.2-1.3) mg/dL AST (17-59) U/L ALT (4-49) U/L Alkaline Phosphatase (38-126) U/L Troponin I 0.038 H* (0.000-0.034) ng/mL NT-Pro-B Natriuret Pep 63885 pg/mL Total Protein (6.3-8.2) g/dL Albumin (3.5-5.0) g/dL Influenza Type A (PCR) (Not Detectd) Influenza Type B (PCR) (Not Detectd) RSV (PCR) (Not Detectd) SARS-CoV-2 (PCR) (Not Detectd) 02/12/22 Range/Units 08:16 WBC (3.8-10.6) k/uL RBC (4.30-5.90) m/uL Hgb (13.0-17.5) gm/dL Hct (39.0-53.0) % MCV (80.0-100.0) fL MCH (25.0-35.0) pg MCHC (31.0-37.0) g/dL RDW (11.5-15.5) % Plt Count (150-450) k/uL MPV Neutrophils % % Lymphocytes % % Monocytes % % Eosinophils % % Basophils % % Neutrophils # (1.3-7.7) k/uL Lymphocytes # (1.0-4.8) k/uL Monocytes # (0-1.0) k/uL Eosinophils # (0-0.7) k/uL Basophils # (0-0.2) k/uL Sodium (137-145) mmol/L Potassium (3.5-5.1) mmol/L Chloride (98-107) mmol/L Carbon Dioxide (22-30) mmol/L Anion Gap mmol/L BUN (9-20) mg/dL Creatinine (0.66-1.25) mg/dL Est GFR (CKD-EPI)AfAm (>60 ml/min/1.73 sqM) Est GFR (CKD-EPI)NonAf (>60 ml/min/1.73 sqM) Glucose (74-99) mg/dL POC Glucose (mg/dL) (70-110) mg/dL POC Glu Fruit Grading Supervisor ID Plasma Lactic Acid Dragan (0.7-2.0) mmol/L Calcium (8.4-10.2) mg/dL Magnesium (1.6-2.3) mg/dL Total Bilirubin (0.2-1.3) mg/dL AST (17-59) U/L ALT (4-49) U/L Alkaline Phosphatase (38-126) U/L Troponin I (0.000-0.034) ng/mL NT-Pro-B Natriuret Pep pg/mL Total Protein (6.3-8.2) g/dL Albumin (3.5-5.0) g/dL Influenza Type A (PCR) Not Detected (Not Detectd) Influenza Type B (PCR) Not Detected (Not Detectd) RSV (PCR) Not Detected (Not Detectd) SARS-CoV-2 (PCR) Not Detected (Not Detectd) Disposition Clinical Impression: Leukocytosis, Missed dialysis, Weakness Disposition: ADMITTED IP TO THIS HOSP Referrals: Hayden Cervantes MD [Primary Care Provider] - 1-2 days Time of Disposition: 10:00
--- NOTE | 2022-02-12 07:56 | XR ---
EXAMINATION TYPE: XR chest 2V DATE OF EXAM: 02/12/2022 7:48 AM COMPARISON: Chest radiographs from 10/30/2020 TECHNIQUE: XR chest 2V Frontal and lateral views of the chest. CLINICAL INDICATION:Male, 61 years old with history of Difficulty breathing ; FINDINGS: Lungs/Pleura: There is no evidence of pleural effusion, focal consolidation, or pneumothorax. Pulmonary vascularity: Unremarkable. Heart/mediastinum: Cardiomediastinal silhouette is unremarkable. Musculoskeletal: No acute osseous pathology. Other findings: Left shoulder vascular stent. IMPRESSION: No acute cardiopulmonary disease/process.
[2022-02-12 08:03] LABS: Calcium 8.4 mg/dL (8.4-10.2); Total Bilirubin 4.2 mg/dL (0.2-1.3); Total Protein 5.6 g/dL (6.3-8.2)
[2022-02-12] MEDS ORDERED: cefTRIAXone IN SWFI 1,000 MG/10 ML SYRINGE IVP STA (08:04)
[2022-02-12 08:14] LABS: Magnesium 2.3 mg/dL (1.6-2.3); Potassium 3.9 mmol/L (3.5-5.1)
[2022-02-12] MEDS: SODIUM CHLORIDE 0.9% 1,000 ML IV SCH ×2 (08:42→22:09)
--- NOTE | 2022-02-12 11:19 | P.NPCON ---
History of Present Illness - Reason for Consult end stage renal disease - History of Present Illness Patient is a 61-year-old male with end-stage renal disease on hemodialysis on a Monday schedule. Patient is admitted to the hospital with complaints of increased weakness. He presented to the dialysis unit today in [place] and was noted to be significantly hypotensive with systolic blood pressure in the 90s with altered mentation and therefore he was not dialyzed and sent to the hospital. No significant history of cough nausea vomiting diarrhea or abdominal pain Blood pressure has been low with systolic in the 80s to 90s. Patient has been afebrile. Heart rate staying 49-58/m. White cell count was noted to be 25,000. Status post 1 L fluid bolus. Review of Systems As per HPI. Past Medical History Past Medical History: Diabetes Mellitus, Dialysis, GERD/Reflux, Hyperlipidemia, Hypertension, Pneumonia, Renal Disease Additional Past Medical History / Comment(s): End stage renal disease currently on hemodialysis, diabetes mellitus, hypertension, acid reflux and recent hospitalization for right lung pneumonia and parapneumonic effusion. History of Any Multi-Drug Resistant Organisms: None Reported Past Surgical History: Hernia Repair Additional Past Surgical History / Comment(s): umb hernia repair/mesh, rt upper chest dialysis cath, multiple large volume paracentesis procedures Past Anesthesia/Blood Transfusion Reactions: No Reported Reaction Additional Past Anesthesia/Blood Transfusion Reaction / Comment(s): clausterphobia Past Psychological History: No Psychological Hx Reported Smoking Status: Former smoker Past Alcohol Use History: None Reported Past Drug Use History: None Reported - Past Family History Mother Family Medical History: No Reported History Additional Family Medical History / Comment(s): alive healthy age 82 Father Family Medical History: Diabetes Mellitus, Liver Disease, Renal Disease Additional Family Medical History / Comment(s): kidney/liver failure Medications and Allergies Home Medications Medication Instructions Recorded Confirmed Type amLODIPine [Norvasc] 10 mg PO DAILY #30 tab 09/21/17 02/03/22 Rx Albuterol Sulfate [Ventolin HFA] 1 - 2 puff INHALATION RT-Q6H PRN 07/17/20 02/03/22 History Calcium Acetate [PhosLo] 1,334 mg PO AC-TID 07/17/20 02/03/22 History Furosemide [Lasix] 80 mg PO BID 07/17/20 02/03/22 History Loratadine 10 mg PO DAILY 07/17/20 02/03/22 History carvediloL [Coreg] 25 mg PO BID 07/17/20 02/03/22 History lisinopriL 40 mg PO DAILY 07/17/20 02/03/22 History INSULIN LISPRO (humaLOG) [humaLOG] 0 units SQ DIRECTED 03/25/21 02/03/22 History Ferrous Sulfate [Feosol] 325 mg PO DAILY 09/08/21 02/03/22 History Ibuprofen [Motrin] 400 mg PO Q6HR PRN 11/11/21 02/03/22 History cloNIDine HCL [Catapres] 0.1 mg PO TID 11/11/21 02/03/22 History hydrALAZINE HCL [Apresoline] 100 mg PO TID 11/11/21 02/03/22 History Acetaminophen-Codeine 300-30mg 1 - 2 tab PO Q4-6H PRN 02/03/22 02/03/22 History [Tylenol w/codeine #3] Allergies Allergy/AdvReac Type Severity Reaction Status Date / Time No Known Allergies Allergy Verified 02/12/22 07:19 Physical Exam Vitals: Vital Signs Temp Pulse Resp BP Pulse Ox 02/12/22 09:30 50 L 18 92/60 100 02/12/22 09:00 50 L 18 94/60 99 02/12/22 08:30 49 L 16 96/61 100 02/12/22 07:39 98/61 02/12/22 07:14 97.5 F L 53 L 18 86/52 94 L Intake and Output 02/11/22 02/12/22 02/12/22 22:59 06:59 14:59 Other: Weight 88.451 kg Patient is awake, comfortable, alert oriented 3 No acute distress Examination of the heart S1 and S2 Examination of the lungs decreased breath sounds at the bases Abdomen is soft nontender Examination of lower extremity shows chronic edema with chronic skin changes. 2+ bilaterally CONDUIT MECHANIC exam is grossly intact Results - Lab Results Most recent lab results Calcium 8.4 mg/dL (8.4-10.2) 02/12/22 07:38 Magnesium 2.3 mg/dL (1.6-2.3) 02/12/22 07:38 02/12/22 07:38 02/12/22 07:38 Assessment and Plan Assessment: 1. End-stage renal disease on hemodialysis on a Monday schedule 2. Sepsis with significantly elevated white count. Source not clear. Covid PCR negative. No abdominal symptoms. Chest x-ray does not show any infiltrates. Maintained on empiric antibiotics. 3. Lactic acidosis 4. CK D mineral bone disorder 5. Hypertension with CK D stage IV Plan: Hold hemodialysis today as patient is significantly hypotensive. Empiric antibiotics Cautious IV hydration Repeat labs in a.m. Consider abdominal imaging Continue to hold all antihypertensive medications
[2022-02-12] MEDS ORDERED: ALBUTEROL NEBULIZED 2.5 MG/3 ML INHALATION PRN (13:09)
[2022-02-12] MEDS ORDERED: VELPHORO 500 MG PO PRN (13:09)
--- NOTE | 2022-02-12 13:15 | P.HPIM ---
History of Present Illness Patient was 61-year-old male came in with complaints of tiredness weakness drowsiness. Patient has been constipated as well. Patient was given Tylenol 3 after he is a dental procedure patient pain is not bad at this time. Patient the blood pressure is extremely low was given IV fluids in ER patient is Monday and Monday hemodialysis schedule a patient doesn't have a short is a doesn't have any pulmonary edema on the chest x-ray because of which are hemanalysis be is being held at this time and nephrology's recording cautious hydration because of his hypotension. Patient's sodium is also low at 134. Patient appears to have toxicity from codeine and decreased excretion because of renal dysfunction. Patient appears bit encephalopathic REVIEW OF SYSTEMS: CONSTITUTIONAL: No fever, HEENT: No recent visual problems or hearing problems. Denied any sore throat. CARDIOVASCULAR: No chest pain, orthopnea, PND, no palpitations, no syncope. PULMONARY: No shortness of breath, no cough, no hemoptysis. GASTROINTESTINAL: No diarrhea, no nausea, no vomiting, no abdominal pain. NEUROLOGICAL: No headaches, no weakness, no numbness. HEMATOLOGICAL: Denies any bleeding or petechiae. GENITOURINARY: Denies any burning micturition, frequency, or urgency. MUSCULOSKELETAL/RHEUMATOLOGICAL: Denies any joint pain, swelling, or any muscle pain. ENDOCRINE: Denies any polyuria or polydipsia. The rest of the 14-point review of systems is negative. PHYSICAL EXAMINATION: GENERAL: The patient is drowsy sleepy oriented 3, not in any acute distress. Well developed, well nourished. HEENT: Pupils are round and equally reacting to light. EOMI. No scleral icterus. No conjunctival pallor. Normocephalic, atraumatic. No pharyngeal erythema. No thyromegaly. She does have multiple caries state but no abscess CARDIOVASCULAR: S1 and S2 present. No murmurs, rubs, or gallops. PULMONARY: Chest is clear to auscultation, no wheezing or crackles. ABDOMEN: Soft, nontender, nondistended, normoactive bowel sounds. No palpable organomegaly. MUSCULOSKELETAL: No joint swelling or deformity. EXTREMITIES: No cyanosis, clubbing, or pedal edema. NEUROLOGICAL: Gross neurological examination did not reveal any focal deficits. SKIN: No rashes. Assessment and plan -Toxic encephalopathy from opiates and decreased recreation of opiates because of end-stage renal disease. -Hypertension secondary to opiates as mentioned above which are being held at this time use Tylenol for pain -Leukocytosis secondary to recent dental procedure no obvious abscess at this time patient was given a dose of antibiotic in ER -Lactic acidosis secondary to hypotension and decreased organ perfusion patient is receiving IV fluids End-stage renal disease because of hypertension hypertension patient is presently hypotensive hold off on antidepressant medications -Mild troponin elevation secondary to renal disease For hyponatremia secondary to hypovolemia or renal disease -Gastroesophageal reflux disease DVT prophylaxis: Subcutaneous heparin Past Medical History Past Medical History: Diabetes Mellitus, Dialysis, GERD/Reflux, Hyperlipidemia, Hypertension, Pneumonia, Renal Disease Additional Past Medical History / Comment(s): End stage renal disease currently on hemodialysis, diabetes mellitus, hypertension, acid reflux and recent hospitalization for right lung pneumonia and parapneumonic effusion. History of Any Multi-Drug Resistant Organisms: None Reported Past Surgical History: Hernia Repair Additional Past Surgical History / Comment(s): umb hernia repair/mesh, rt upper chest dialysis cath, multiple large volume paracentesis procedures Past Anesthesia/Blood Transfusion Reactions: No Reported Reaction Additional Past Anesthesia/Blood Transfusion Reaction / Comment(s): clausterphobia Past Psychological History: No Psychological Hx Reported Smoking Status: Former smoker Past Alcohol Use History: None Reported Past Drug Use History: None Reported - Past Family History Mother Family Medical History: No Reported History Additional Family Medical History / Comment(s): alive healthy age 82 Father Family Medical History: Diabetes Mellitus, Liver Disease, Renal Disease Additional Family Medical History / Comment(s): kidney/liver failure Medications and Allergies Home Medications Medication Instructions Recorded Confirmed Type amLODIPine [Norvasc] 10 mg PO DAILY #30 tab 09/21/17 02/12/22 Rx Albuterol Sulfate [Ventolin HFA] 1 - 2 puff INHALATION RT-Q6H PRN 07/17/20 02/12/22 History Loratadine 10 mg PO DAILY 07/17/20 02/12/22 History carvediloL [Coreg] 25 mg PO BID 07/17/20 02/12/22 History Ibuprofen [Motrin] 400 - 800 mg PO Q4H PRN 11/11/21 02/12/22 History cloNIDine HCL [Catapres] 0.1 mg PO TID 11/11/21 02/12/22 History hydrALAZINE HCL [Apresoline] 100 mg PO TID 11/11/21 02/12/22 History Acetaminophen-Codeine 300-30mg 1 - 2 tab PO Q4-6H PRN 02/03/22 02/12/22 History [Tylenol w/codeine #3] Velphoro 500mg Chewable Tab 1,500 mg PO TID-W/MEALS 02/12/22 02/12/22 History Velphoro 500mg Chewable Tab 500 mg PO BID PRN 02/12/22 02/12/22 History Allergies Allergy/AdvReac Type Severity Reaction Status Date / Time No Known Allergies Allergy Verified 02/12/22 12:13 Physical Exam Vitals: Vital Signs Temp Pulse Resp BP Pulse Ox 02/12/22 12:16 68 18 118/73 98 02/12/22 12:00 49 L 18 97/62 99 02/12/22 11:30 49 L 18 97/53 98 02/12/22 11:00 50 L 18 80/45 98 02/12/22 10:30 50 L 18 103/66 98 02/12/22 10:00 51 L 18 92/61 100 02/12/22 09:30 50 L 18 92/60 100 02/12/22 09:00 50 L 18 94/60 99 02/12/22 08:30 49 L 16 96/61 100 02/12/22 07:39 98/61 02/12/22 07:14 97.5 F L 53 L 18 86/52 94 L Intake and Output 02/11/22 02/12/22 02/12/22 22:59 06:59 14:59 Other: Weight 88.451 kg Results CBC & Chem 7: 02/12/22 07:38 02/12/22 07:38 Labs: Abnormal Lab Results - Last 24 Hours (Table) 02/12/22 02/12/22 02/12/22 Range/Units 07:26 07:38 07:38 WBC 25.1 H (3.8-10.6) k/uL RBC 3.42 L (4.30-5.90) m/uL Hgb 10.9 L (13.0-17.5) gm/dL Hct 31.4 L (39.0-53.0) % Neutrophils # 23.3 H (1.3-7.7) k/uL Lymphocytes # 0.4 L (1.0-4.8) k/uL Sodium 134 L (137-145) mmol/L Chloride 95 L (98-107) mmol/L Carbon Dioxide 21 L (22-30) mmol/L BUN 56 H (9-20) mg/dL Creatinine 6.61 H (0.66-1.25) mg/dL Glucose 186 H (74-99) mg/dL POC Glucose (mg/dL) 183 H (70-110) mg/dL Plasma Lactic Acid Dragan (0.7-2.0) mmol/L Total Bilirubin 4.2 H (0.2-1.3) mg/dL AST 224 H (17-59) U/L ALT 92 H (4-49) U/L Alkaline Phosphatase 478 H (38-126) U/L Troponin I (0.000-0.034) ng/mL Total Protein 5.6 L (6.3-8.2) g/dL Albumin 3.0 L (3.5-5.0) g/dL 02/12/22 02/12/22 02/12/22 Range/Units 07:38 08:06 12:13 WBC (3.8-10.6) k/uL RBC (4.30-5.90) m/uL Hgb (13.0-17.5) gm/dL Hct (39.0-53.0) % Neutrophils # (1.3-7.7) k/uL Lymphocytes # (1.0-4.8) k/uL Sodium (137-145) mmol/L Chloride (98-107) mmol/L Carbon Dioxide (22-30) mmol/L BUN (9-20) mg/dL Creatinine (0.66-1.25) mg/dL Glucose (74-99) mg/dL POC Glucose (mg/dL) (70-110) mg/dL Plasma Lactic Acid Dragan 3.1 H* 2.5 H* (0.7-2.0) mmol/L Total Bilirubin (0.2-1.3) mg/dL AST (17-59) U/L ALT (4-49) U/L Alkaline Phosphatase (38-126) U/L Troponin I 0.038 H* (0.000-0.034) ng/mL Total Protein (6.3-8.2) g/dL Albumin (3.5-5.0) g/dL
[2022-02-12] MEDS: traMADol 50 MG TAB PO SCH ×2 (14:38→17:33)
[2022-02-12] MEDS ORDERED: ACETAMINOPHEN TAB 500 MG TAB PO PRN (17:17)
[2022-02-12] MEDS: VELPHORO PO SCH (17:31)
[2022-02-12 17:47] LABS: Glucose,Whole Blood 170 mg/dL (70-110)
[2022-02-12] MEDS ORDERED: traMADol 50 MG TAB PO SCH (18:00)
[2022-02-12] MEDS ORDERED: DEXTROSE 50% SYRINGE 50 ML IVP PRN ×2 (18:02)
[2022-02-12] MEDS: INSULIN ASPART (NovoLOG) 100 UNIT/ML VIAL SQ SCH ×2 (18:56→20:56)
[2022-02-12 20:32] LABS: Glucose,Whole Blood 130 mg/dL (70-110)
[2022-02-12] MEDS ORDERED: HYDROmorphone 0.5 MG/0.5 ML SYRINGE IVP PRN (20:41)
[2022-02-12] MEDS: HEPARIN SODIUM,PORCINE/PF 5,000 UNIT/0.5 ML SYRINGE SQ SCH (20:56)
[2022-02-13] MEDS: traMADol 50 MG TAB PO SCH ×5 (01:51→21:23)
[2022-02-13 07:58] LABS: Glucose,Whole Blood 97 mg/dL (70-110)
[2022-02-13 08:09] LABS: Basophils # (A) 0.1 k/uL (0-0.2); Basophils % (A) 0 %; Eosinophils % (A) 0 %; HCT 30.1 % (39.0-53.0); HGB 9.9 gm/dL (13.0-17.5); Hypochromasia Slight; Lymphocytes # (A) 0.6 k/uL (1.0-4.8); Lymphocytes % (A) 2 %; MCH 31.1 pg (25.0-35.0); MCHC 32.8 g/dL (31.0-37.0); MCV 94.8 fL (80.0-100.0); Mean Platelet Volume 11.1; Monocytes # (A) 1.3 k/uL (0-1.0); Monocytes % (A) 5 %; Neutrophils # (A) 24.6 k/uL (1.3-7.7); Neutrophils % (A) 90 %; Platelet Count 176 k/uL (150-450); RBC 3.17 m/uL (4.30-5.90); RDW 14.9 % (11.5-15.5); WBC 27.4 k/uL (3.8-10.6)
[2022-02-13 08:22] LABS: ALT 412 U/L (4-49); African American GFR (CKD) 8 (>60 ml/min/1.73 sqM); Albumin 2.7 g/dL (3.5-5.0); Alkaline Phosphatase 378 U/L (38-126); Anion Gap 22 mmol/L; Blood Urea Nitrogen 67 mg/dL (9-20); Calcium 8.1 mg/dL (8.4-10.2); Carbon Dioxide 18 mmol/L (22-30); Chloride 94 mmol/L (98-107); Globulin 2.6 g/dL; Glucose 93 mg/dL (74-99); Magnesium 2.4 mg/dL (1.6-2.3); Non-African American GFR(CKD) 7 (>60 ml/min/1.73 sqM); Potassium 4.6 mmol/L (3.5-5.1); Sodium 134 mmol/L (137-145); Total Bilirubin 4.6 mg/dL (0.2-1.3); Total Protein 5.3 g/dL (6.3-8.2)
[2022-02-13] MEDS: INSULIN ASPART (NovoLOG) 100 UNIT/ML VIAL SQ SCH ×4 (08:24→21:25)
[2022-02-13] MEDS: VELPHORO PO SCH ×3 (08:26→17:29)
[2022-02-13 08:29] LABS: AST 1212 U/L (17-59)
[2022-02-13] MEDS: SODIUM CHLORIDE 0.9% 1,000 ML IV SCH (09:04)
[2022-02-13] MEDS: HEPARIN SODIUM,PORCINE/PF 5,000 UNIT/0.5 ML SYRINGE SQ SCH ×2 (09:05→21:22)
--- NOTE | 2022-02-13 10:14 | P.PN ---
Subjective Patient is seen for follow-up for end-stage renal disease. Admitted to the hospital with hypotension This morning he is more confused No significant pain or swelling noted in the face or around the mouth Blood pressure remains low in the 90s. Patient did not get IV fluids overnight. No significant nausea vomiting or diarrhea noted. Objective - Vital Signs Vital signs: Vital Signs Temp 97.4 F L 02/13/22 06:31 Pulse 51 L 02/13/22 06:31 Resp 18 02/13/22 06:31 BP 98/56 02/13/22 06:31 Pulse Ox 93 L 02/13/22 06:31 FiO2 Intake & Output 02/12/22 02/13/22 02/13/22 18:59 06:59 18:59 Intake Total 350 600 Balance 350 600 Weight 88.451 kg Intake: Oral 350 600 Other: Voiding Method Urinal Urinal # Voids 0 - Exam Patient is awake, comfortable, no acute distress He is confused Examination of the heart S1 and S2 Examination of the lungs bilateral breath sounds are heard Abdomen is soft nontender Examination lower extremities shows 1+ edema bilaterally FIREMAN exam shows patient is moving all 4 extremities but he is confused. - Labs CBC & Chem 7: 02/13/22 07:32 02/13/22 07:32 Labs: Abnormal Lab Results - Last 24 Hours (Table) 02/12/22 02/12/22 02/12/22 Range/Units 07:38 12:13 17:45 WBC (3.8-10.6) k/uL RBC (4.30-5.90) m/uL Hgb (13.0-17.5) gm/dL Hct (39.0-53.0) % Neutrophils # (1.3-7.7) k/uL Lymphocytes # (1.0-4.8) k/uL Monocytes # (0-1.0) k/uL Sodium (137-145) mmol/L Chloride (98-107) mmol/L Carbon Dioxide (22-30) mmol/L BUN (9-20) mg/dL Creatinine (0.66-1.25) mg/dL POC Glucose (mg/dL) 170 H (70-110) mg/dL Hemoglobin A1c 6.6 H (0.0-6.0) % Plasma Lactic Acid Dragan 2.5 H* (0.7-2.0) mmol/L Calcium (8.4-10.2) mg/dL Magnesium (1.6-2.3) mg/dL Total Bilirubin (0.2-1.3) mg/dL AST (17-59) U/L ALT (4-49) U/L Alkaline Phosphatase (38-126) U/L Total Protein (6.3-8.2) g/dL Albumin (3.5-5.0) g/dL 02/12/22 02/13/22 02/13/22 Range/Units 20:27 07:32 07:32 WBC 27.4 H (3.8-10.6) k/uL RBC 3.17 L (4.30-5.90) m/uL Hgb 9.9 L (13.0-17.5) gm/dL Hct 30.1 L (39.0-53.0) % Neutrophils # 24.6 H (1.3-7.7) k/uL Lymphocytes # 0.6 L (1.0-4.8) k/uL Monocytes # 1.3 H (0-1.0) k/uL Sodium 134 L (137-145) mmol/L Chloride 94 L (98-107) mmol/L Carbon Dioxide 18 L (22-30) mmol/L BUN 67 H (9-20) mg/dL Creatinine 7.70 H* (0.66-1.25) mg/dL POC Glucose (mg/dL) 130 H (70-110) mg/dL Hemoglobin A1c (0.0-6.0) % Plasma Lactic Acid Dragan (0.7-2.0) mmol/L Calcium 8.1 L (8.4-10.2) mg/dL Magnesium 2.4 H (1.6-2.3) mg/dL Total Bilirubin 4.6 H (0.2-1.3) mg/dL AST 1212 H (17-59) U/L ALT 412 H (4-49) U/L Alkaline Phosphatase 378 H (38-126) U/L Total Protein 5.3 L (6.3-8.2) g/dL Albumin 2.7 L (3.5-5.0) g/dL Assessment and Plan Assessment: 1. End-stage renal disease on hemodialysis on a Monday schedule via AV fistula left arm 2. Sepsis with significantly elevated white count. Source not clear. Covid PCR negative. No abdominal symptoms. Chest x-ray does not show any infiltrates. Maintained on empiric antibiotics. Patient had dental work done about 2 weeks ago. 3. Lactic acidosis 4. CK D mineral bone disorder 5. Hypertension with CK D stage IV 6. Altered mentation 7. Elevated liver enzymes mostly secondary to hypotension and shock liver. Hold Tylenol Plan: Continue with IV fluids Hemodialysis today Continue with empiric antibiotics Consider imaging of the face for possible underlying abscess Add midodrine Check acetaminophen level Hold Tylenol
[2022-02-13 12:08] LABS: Glucose,Whole Blood 116 mg/dL (70-110)
[2022-02-13] MEDS: MIDODRINE 5 MG TAB PO SCH ×2 (13:08→18:31)
--- NOTE | 2022-02-13 16:18 | XR ---
EXAMINATION TYPE: XR abdomen 1V DATE OF EXAM: 02/13/2022 3:59 PM INDICATION: Patient age:Male; 61 years old; Reason for study: abdominal distention; COMPARISON: None. TECHNIQUE: One radiographic view of the abdomen was obtained. FINDINGS: The bowel gas pattern is nonspecific without dilated loops of small or large bowel. There i s no evidence for organomegaly or pneumoperitoneum. The osseous structures are intact. No abnormal calcifications are present. Fecal material and gas are demonstrated throughout the colon and rectum. IMPRESSION: Nonspecific bowel gas pattern without radiographic evidence for acute process.
[2022-02-13 17:25] LABS: Glucose,Whole Blood 95 mg/dL (70-110)
[2022-02-13] MEDS ORDERED: bisacodyL 10 MG SUPP RECTAL STA (18:26)
[2022-02-13] MEDS ORDERED: CEFEPIME 1 GM in SODIUM CHLORIDE 0.9% 50 ML IVPB SCH (21:00)
[2022-02-13 21:01] LABS: Glucose,Whole Blood 99 mg/dL (70-110)
--- NOTE | 2022-02-13 21:44 | P.PN ---
Subjective Progress Note Date: 02/13/22 Patient was 61-year-old male came in with complaints of tiredness weakness drowsiness. Patient has been constipated as well. Patient was given Tylenol 3 after he is a dental procedure patient pain is not bad at this time. Patient the blood pressure is extremely low was given IV fluids in ER patient is Monday and Monday hemodialysis schedule a patient doesn't have a short is a doesn't have any pulmonary edema on the chest x-ray because of which are hemanalysis be is being held at this time and nephrology's recording cautious hydration because of his hypotension. Patient's sodium is also low at 134. Patient appears to have toxicity from codeine and decreased excretion because of renal dysfunction. Patient appears bit encephalopathic 02/13/2022 Patient is evaluated today on medical floor. He is confused and drowsy. Nursing reports increased confusion. Blood pressure continues to run low in the high 90s. Remains afebrile. Sinus bradycardia on the heart monitor. He is receiving I V normal saline at 75 mls per hour. Plan per nephrology is to undergo hemodialysis today. Patient does have increased abdominal distention today, has positive bowel sounds there is no focal tenderness noted on exam. AST and ALT are increased. He did have lactic acidosis on admission as well. He does have consistent leukocytosis today 27.4. Blood cultures are currently pending at this time. Creatinine shows worsening renal function. He has not had any urine output per patient he does make some urine. He reports that bowels are moving. Will check a procalcitonin level and if elevated add empiric antibiotics and consult infectious disease. Review of Systems Unable to complete full review of systems patient is drowsy today he continues to be confused. PHYSICAL EXAMINATION: GENERAL: The patient is drowsy sleepy oriented 2, not in any acute distress. Well developed, well nourished. Pale. HEENT: Pupils are round and equally reacting to light. EOMI. No scleral icterus. No conjunctival pallor. Normocephalic, atraumatic. No pharyngeal erythema. No thyromegaly. She does have multiple caries state but no abscess CARDIOVASCULAR: S1 and S2 present. No murmurs, rubs, or gallops. PULMONARY: Chest is clear to auscultation, no wheezing or crackles. ABDOMEN: Soft, nontender, distended, normoactive bowel sounds. No palpable organomegaly. MUSCULOSKELETAL: No joint swelling or deformity. EXTREMITIES: No cyanosis, clubbing, or pedal edema. NEUROLOGICAL: Gross neurological examination did not reveal any focal deficits. Diffuse generalized weakness and confusion appear encephalopathic SKIN: No rashes. Assessment and plan Assessment -Volume overload patient has missed hemodialysis, [place] [address] -Altered mental status secondary toxic metabolic encephalopathy secondary to recent opiate use, and possible sepsis source of infection under investigation. -Hypotension and leukocytosis, rule out sepsis patient did have dental work 2 weeks no facial swelling or redness to indicate abscess at this time -Lactic acidosis secondary to hypotension and decreased organ perfusion patient is receiving IV fluids, lactic acid has normalized -End-stage renal disease because of hypertension, patient is presently hypotensive hold off on antihypertensive medications for now creatinine increased up to 7.70. -Elevated transaminases under investigation -Recurrent ascites with requent paracentesis about every 2 weeks S/P paracentesis on 02/03 with 5.8 Liters of straw colored fluid off -Mild troponin elevation secondary to renal disease -hyponatremia secondary to hypovolemia or renal disease which is stable at 134. -Gastroesophageal reflux disease DVT prophylaxis: Subcutaneous heparin GI prophylaxis: IV pepcid Plan Continue IV fluids secondary to hypotension Avoid use of opiates Check procalcitonin level IV vancomycin, IV cefepime Consult infectious disease Hemodialysis today Nephrology following Monitor labs closely Prognosis remains guarded Plan Check procalcitonin level check ammonia level. Bladder scan and also check urinalysis. Abdominal ultrasound ordered follow up for elevated liver enzymes which are increasing. Repeat CMP tomorrow. Patient to undergo hemodialysis today. If procalcitonin level is elevated patient will be started on empiric antibiotics and infectious disease will be consulted. continue IV fluids. Prognosis remains guarded. The impression and plan of care has been dictated by Lorie Gonzales Nurse Practitioner as directed. Dr. Alisson MD I have performed a history and physical examination and medical decision making of this patient, discussed the same with the dictator, and agree with the dictators assessment and plan as written, documented as a scribe. Based on total visit time, I have performed more than 50% of this visit. Objective - Vital Signs Vital signs: Vital Signs Temp 97.4 F L 02/13/22 06:31 Pulse 51 L 02/13/22 06:31 Resp 18 02/13/22 06:31 BP 98/56 02/13/22 06:31 Pulse Ox 93 L 02/13/22 06:31 FiO2 Intake & Output 02/12/22 02/13/22 02/13/22 18:59 06:59 18:59 Intake Total 350 600 Balance 350 600 Weight 88.451 kg Intake: Oral 350 600 Other: Voiding Method Urinal Urinal # Voids 0 - Labs CBC & Chem 7: 02/13/22 07:32 02/13/22 07:32 Labs: Abnormal Lab Results - Last 24 Hours (Table) 02/12/22 02/12/22 02/12/22 Range/Units 07:38 12:13 17:45 WBC (3.8-10.6) k/uL RBC (4.30-5.90) m/uL Hgb (13.0-17.5) gm/dL Hct (39.0-53.0) % Neutrophils # (1.3-7.7) k/uL Lymphocytes # (1.0-4.8) k/uL Monocytes # (0-1.0) k/uL Sodium (137-145) mmol/L Chloride (98-107) mmol/L Carbon Dioxide (22-30) mmol/L BUN (9-20) mg/dL Creatinine (0.66-1.25) mg/dL POC Glucose (mg/dL) 170 H (70-110) mg/dL Hemoglobin A1c 6.6 H (0.0-6.0) % Plasma Lactic Acid Dragan 2.5 H* (0.7-2.0) mmol/L Calcium (8.4-10.2) mg/dL Magnesium (1.6-2.3) mg/dL Total Bilirubin (0.2-1.3) mg/dL AST (17-59) U/L ALT (4-49) U/L Alkaline Phosphatase (38-126) U/L Total Protein (6.3-8.2) g/dL Albumin (3.5-5.0) g/dL 02/12/22 02/13/22 02/13/22 Range/Units 20:27 07:32 07:32 WBC 27.4 H (3.8-10.6) k/uL RBC 3.17 L (4.30-5.90) m/uL Hgb 9.9 L (13.0-17.5) gm/dL Hct 30.1 L (39.0-53.0) % Neutrophils # 24.6 H (1.3-7.7) k/uL Lymphocytes # 0.6 L (1.0-4.8) k/uL Monocytes # 1.3 H (0-1.0) k/uL Sodium 134 L (137-145) mmol/L Chloride 94 L (98-107) mmol/L Carbon Dioxide 18 L (22-30) mmol/L BUN 67 H (9-20) mg/dL Creatinine 7.70 H* (0.66-1.25) mg/dL POC Glucose (mg/dL) 130 H (70-110) mg/dL Hemoglobin A1c (0.0-6.0) % Plasma Lactic Acid Dragan (0.7-2.0) mmol/L Calcium 8.1 L (8.4-10.2) mg/dL Magnesium 2.4 H (1.6-2.3) mg/dL Total Bilirubin 4.6 H (0.2-1.3) mg/dL AST 1212 H (17-59) U/L ALT 412 H (4-49) U/L Alkaline Phosphatase 378 H (38-126) U/L Total Protein 5.3 L (6.3-8.2) g/dL Albumin 2.7 L (3.5-5.0) g/dL 02/13/22 Range/Units 12:06 WBC (3.8-10.6) k/uL RBC (4.30-5.90) m/uL Hgb (13.0-17.5) gm/dL Hct (39.0-53.0) % Neutrophils # (1.3-7.7) k/uL Lymphocytes # (1.0-4.8) k/uL Monocytes # (0-1.0) k/uL Sodium (137-145) mmol/L Chloride (98-107) mmol/L Carbon Dioxide (22-30) mmol/L BUN (9-20) mg/dL Creatinine (0.66-1.25) mg/dL POC Glucose (mg/dL) 116 H (70-110) mg/dL Hemoglobin A1c (0.0-6.0) % Plasma Lactic Acid Dragan (0.7-2.0) mmol/L Calcium (8.4-10.2) mg/dL Magnesium (1.6-2.3) mg/dL Total Bilirubin (0.2-1.3) mg/dL AST (17-59) U/L ALT (4-49) U/L Alkaline Phosphatase (38-126) U/L Total Protein (6.3-8.2) g/dL Albumin (3.5-5.0) g/dL Microbiology - Last 24 Hours (Table) 02/12/22 08:21 Blood Culture - Preliminary Blood No Growth after 24 hours 02/12/22 08:06 Blood Culture - Preliminary Blood No Growth after 24 hours Assessment and Plan Time with Patient: Greater than 30
[2022-02-14] MEDS: SODIUM CHLORIDE 0.9% 1,000 ML IV SCH (01:06)
[2022-02-14 07:23] LABS: Glucose,Whole Blood 110 mg/dL (70-110)
[2022-02-14] MEDS ORDERED: FAMOTIDINE 20 MG/2 ML VIAL IV SCH (09:00)
[2022-02-14 09:25] LABS: Magnesium 2.5 mg/dL (1.5-2.4)
[2022-02-14 09:43] LABS: HCT 29.3 % (39.6-50.0); HGB 9.4 g/dL (13.0-17.0); MCH 30.5 pg (27.0-32.0); MCHC 32.1 g/dL (32.0-37.0); MCV 95.1 fL (80.0-97.0); Mean Platelet Volume 12.4 fL (9.5-12.2); NRBC Per 100 WBC 0.3 /100 WBCS (0.0-0.0); Platelet Count 178 X 10*3/uL (140-440); RBC 3.08 X 10*6/uL (4.40-5.60); RDW 15.8 % (11.5-14.5)
[2022-02-14 09:44] LABS: Basophils # (M) 0 X 10*3/uL (0.00-0.10); Eosinophils # (M) 0.45 X 10*3/uL (0.04-0.35); Lymphocytes # (M) 0.22 X 10*3/uL (0.90-5.00); Metamyelocytes % 1 % (0-0); Monocytes # (M) 0.67 X 10*3/uL (0.20-1.00); Myelocytes % 1 % (0-0); Neutrophils # (M) 19.71 X 10*3/uL (2.00-8.90); Neutrophils % (M) 88 %; Promyelocytes % 4 % (0-0); Rouleaux PRESENT
[2022-02-14] MEDS: INSULIN ASPART (NovoLOG) 100 UNIT/ML VIAL SQ SCH ×4 (09:57→20:50)
--- NOTE | 2022-02-14 09:57 | US ---
EXAMINATION TYPE: US abdomen complete DATE OF EXAM: 02/14/2022 COMPARISON: CT CLINICAL HISTORY: elevated transaminases, ascites. Elevated labs, ascites, renal failure, pt on dialy sis TECHNIQUE: Multiple sonographic images of the abdomen are obtained. FINDINGS: EXAM MEASUREMENTS: Liver Length: 19.7 cm. Normal less than 15.5 cm. Gallbladder Wall: 0.4 cm. Normal less than 0.3 cm CBD: 0.6 cm Spleen: 14.1 cm. Normal less than 12.5 cm. Right Kidney: 8.2 x 4.2 x 4.0 cm Left Kidney: 7.2 x 3.4 x 3.5 cm SKIP LOADER NOTES: Pt moaning and moving during exam* Pancreas: Obscured by bowel gas Liver: Heterogeneous, enlarged Gallbladder: Sludge with thickened wall Evidence for sonographic Guy's sign: Yes CBD: wnl Spleen: Enlarged Right Kidney: Atrophic Left Kidney: Atrophic Upper IVC: wnl Abd Aorta: Obscured by overlying bowel gas Mild ascites present IMPRESSION: 1. Thickened gallbladder wall with sludge. Correlate for acute cholecystitis. 2. Hepatosplenomegaly
[2022-02-14] MEDS: HEPARIN SODIUM,PORCINE/PF 5,000 UNIT/0.5 ML SYRINGE SQ SCH ×2 (10:08→20:53)
[2022-02-14] MEDS: MIDODRINE 5 MG TAB PO SCH ×3 (10:09→19:41)
[2022-02-14] MEDS: VELPHORO PO SCH ×3 (10:09→19:39)
[2022-02-14] MEDS: traMADol 50 MG TAB PO SCH ×4 (10:09→20:46)
[2022-02-14 10:31] LABS: African American GFR (CKD) 11.2 (60.0-200.0); Albumin 2.7 g/dL (3.8-4.9); Albumin/Globulin Ratio 1.12 (1.60-3.17); Anion Gap 22.2 mmol/L (10.00-18.00); BUN/Creat Ratio 8.95 Ratio (12.00-20.00); Blood Urea Nitrogen 51.3 mg/dL (9.0-27.0); Calcium 8.6 mg/dL (8.7-10.3); Carbon Dioxide 19.1 mmol/L (20.0-27.5); Globulin 2.4 g/dL (1.6-3.3); Non-African American GFR(CKD) 9.7 (60.0-200.0); Potassium 4.1 mmol/L (3.5-5.5); Total Bilirubin 3.3 mg/dL (0.30-1.20); Total Protein 5.2 g/dL (6.2-8.2)
[2022-02-14] MEDS ORDERED: VANCOMYCIN IV PER PHARMACY 1 EACH MISC MISCELLANE PRN (11:00)
[2022-02-14 11:10] LABS: Glucose,Whole Blood 116 mg/dL (70-110)
[2022-02-14] MEDS ORDERED: VANCOMYCIN 1,000 MG in SODIUM CHLORIDE 0.9% 250 ML IVPB ONE (11:15)
--- NOTE | 2022-02-14 12:26 | P.PN ---
Subjective Patient is seen for follow-up for end-stage renal disease. Admitted to the hospital with hypotension Patient has been confused. He was dialyzed yesterday as mentation appeared worse yesterday. Maintained on empiric antibiotics. Blood pressure is not low. Ultrasound showed possible underlying acute cholecystitis Objective - Vital Signs Vital signs: Vital Signs Temp 97.9 F 02/14/22 12:19 Pulse 53 L 02/14/22 12:19 Resp 16 02/14/22 12:19 BP 125/61 02/14/22 12:19 Pulse Ox 94 L 02/14/22 12:19 FiO2 Intake & Output 02/13/22 02/14/22 02/14/22 18:59 06:59 18:59 Intake Total 900 1050 0 Output Total 490 Balance 410 1050 0 Weight 60 kg Intake: Intake, IV Titration 600 450 Amount Cefepime 1 gm In Sodium 50 Chloride 0.9% 50 ml @ 12. 5 mls/hr IVPB Q12HR [facility] Rx#:[id number] Sodium Chloride 0.9% 1, 600 400 000 ml @ 75 mls/hr IV . [id number] [facility] Rx#:[id number] Oral 600 0 Hemodialysis 300 Output: Hemodialysis 490 Other: Voiding Method Urinal Urinal Urinal # Voids 0 # Bowel Movements 2 - Exam Patient is awake, comfortable, no acute distress He is confused. But perhaps better than yesterday Examination of the heart S1 and S2 Examination of the lungs bilateral breath sounds are heard Abdomen is soft nontender Examination lower extremities shows 1+ edema bilaterally [employer]POR[employer] COMM[employer]ICATION[employer] SPECIALIST exam shows patient is moving all 4 extremities but he is confused. - Labs CBC & Chem 7: 02/14/22 05:55 02/14/22 05:55 Labs: Abnormal Lab Results - Last 24 Hours (Table) 02/13/22 02/14/22 02/14/22 Range/Units 12:58 05:55 05:55 WBC 22.40 H (4.50-10.00) X 10*3/uL RBC 3.08 L (4.40-5.60) X 10*6/uL Hgb 9.4 L (13.0-17.0) g/dL Hct 29.3 L (39.6-50.0) % RDW 15.8 H (11.5-14.5) % MPV 12.4 H (9.5-12.2) fL Absolute Nucleated RBC 0.06 H (0.00-0.00) X 10*3/uL Metamyelocytes % 1 H (0-0) % Myelocytes % 1 H (0-0) % Promyelocytes % 4 H (0-0) % Neutrophils # (Manual) 19.71 H (2.00-8.90) X 10*3/uL Lymphocytes # (Manual) 0.22 L (0.90-5.00) X 10*3/uL Eosinophils # (Manual) 0.45 H (0.04-0.35) X 10*3/uL NRBC/100 WBC Diff 0.3 H (0.0-0.0) /100 WBCS Chloride 95 L (96-109) mmol/L Carbon Dioxide 19.1 L (20.0-27.5) mmol/L Anion Gap 22.20 H (10.00-18.00) mmol/L BUN 51.3 H (9.0-27.0) mg/dL Creatinine 5.7 H (0.6-1.5) mg/dL Est GFR (CKD-EPI)AfAm 11.2 L (60.0-200.0) Est GFR (CKD-EPI)NonAf 9.7 L (60.0-200.0) BUN/Creatinine Ratio 8.95 L (12.00-20.00) Ratio Glucose 116 H (70-110) mg/dL POC Glucose (mg/dL) (70-110) mg/dL Calcium 8.6 L (8.7-10.3) mg/dL Magnesium 2.5 H (1.5-2.4) mg/dL Total Bilirubin 3.30 H (0.30-1.20) mg/dL AST 1202 H (14-35) U/L ALT 560 H (10-49) U/L Alkaline Phosphatase 394 H (41-126) U/L Total Protein 5.2 L (6.2-8.2) g/dL Albumin 2.7 L (3.8-4.9) g/dL Albumin/Globulin Ratio 1.12 L (1.60-3.17) g/dL Procalcitonin >100.00 H (0.02-0.09) ng/mL 02/14/22 Range/Units 11:07 WBC (4.50-10.00) X 10*3/uL RBC (4.40-5.60) X 10*6/uL Hgb (13.0-17.0) g/dL Hct (39.6-50.0) % RDW (11.5-14.5) % MPV (9.5-12.2) fL Absolute Nucleated RBC (0.00-0.00) X 10*3/uL Metamyelocytes % (0-0) % Myelocytes % (0-0) % Promyelocytes % (0-0) % Neutrophils # (Manual) (2.00-8.90) X 10*3/uL Lymphocytes # (Manual) (0.90-5.00) X 10*3/uL Eosinophils # (Manual) (0.04-0.35) X 10*3/uL NRBC/100 WBC Diff (0.0-0.0) /100 WBCS Chloride (96-109) mmol/L Carbon Dioxide (20.0-27.5) mmol/L Anion Gap (10.00-18.00) mmol/L BUN (9.0-27.0) mg/dL Creatinine (0.6-1.5) mg/dL Est GFR (CKD-EPI)AfAm (60.0-200.0) Est GFR (CKD-EPI)NonAf (60.0-200.0) BUN/Creatinine Ratio (12.00-20.00) Ratio Glucose (70-110) mg/dL POC Glucose (mg/dL) 116 H (70-110) mg/dL Calcium (8.7-10.3) mg/dL Magnesium (1.5-2.4) mg/dL Total Bilirubin (0.30-1.20) mg/dL AST (14-35) U/L ALT (10-49) U/L Alkaline Phosphatase (41-126) U/L Total Protein (6.2-8.2) g/dL Albumin (3.8-4.9) g/dL Albumin/Globulin Ratio (1.60-3.17) g/dL Procalcitonin (0.02-0.09) ng/mL Microbiology - Last 24 Hours (Table) 02/12/22 08:21 Blood Culture Gram Stain - Preliminary Blood 02/12/22 08:06 Blood Culture Gram Stain - Preliminary Blood 02/12/22 08:06 Blood Culture - Final Blood 02/12/22 08:21 Blood Culture - Final Blood Assessment and Plan Assessment: 1. End-stage renal disease on hemodialysis on a Monday schedule via AV fistula left arm 2. Sepsis with significantly elevated white count. Source not clear. Covid PCR negative. No abdominal symptoms. Chest x-ray does not show any infiltrates . Maintained on empiric antibiotics. Patient had dental work done about 2 weeks ago. Ultrasound shows possible acute cholecystitis 3. Lactic acidosis 4. CK D mineral bone disorder 5. Hypertension with CK D stage IV 6. Altered mentation 7. Elevated liver enzymes mostly secondary to hypotension. Ultrasound shows possible acute cholecystitis Plan: Repeat hemodialysis today DC IV fluids Continue with empiric antibiotics
--- NOTE | 2022-02-14 12:36 | XR ---
EXAMINATION TYPE: XR chest 1V portable DATE OF EXAM: 02/14/2022 COMPARISON: 02/12/2022 INDICATION: Hypoxia TECHNIQUE: Single frontal view of the chest is obtained. FINDINGS: The heart size is enlarged. The pulmonary vasculature is normal. The lungs are clear. IMPRESSION: 1. Mild cardiomegaly. 2. No acute pulmonary process.
--- NOTE | 2022-02-14 13:38 | P.GSCN ---
History of Present Illness Consult date: 02/14/22 History of present illness: CHIEF COMPLAINT: Weakness and dizziness HISTORY OF PRESENT ILLNESS: This is a 61-year-old male who presented to hospital with dizziness and low blood pressure at dialysis. He has known history of end- stage renal disease on hemodialysis. Patient reports that he's been feeling weak after he had dental work done last week. He had been taking Tylenol 3's. Acetaminophen level was less than 10. Patient had elevated liver enzymes and elevated bilirubin level. He had an abdominal ultrasound completed due to the elevated liver enzymes which did show a thickened gallbladder wall with sludge and correlate for acute cholecystitis. Also hepatomegaly. Patient is still confused. He does report abdominal pain in the right upper quadrant area that is intermittent. He reports the pain is better than yesterday. Denies any nausea or vomiting. He is tolerating diet. He denies any fever chills or sweats. Patient has had history of abdominal ascites requiring paracentesis. PAST MEDICAL HISTORY: See below PAST SURGICAL HISTORY: See below MEDICATIONS: See below ALLERGIES: See below SOCIAL HISTORY: No illicit drug use. REVIEW OF SYSTEMS: CONSTITUTIONAL: Denies fever or chills. HEENT: Denies blurred vision, vision changes, or eye pain. Denies hemoptysis CARDIOVASCULAR: Denies chest pain or pressure. RESPIRATORY: No shortness of breath. GASTROINTESTINAL: See HPI for pertinent findings HEMATOLOGIC: Denies bleeding disorders. GENITOURINARY: Denies any blood in urine or increased urinary frequency. SKIN: Denies pruitis. Denies rash. PHYSICAL EXAM: VITAL SIGNS: Reviewed GENERAL: Well-developed in no acute distress. HEENT: No sclera icterus. Extraocular movements grossly intact. Moist buccal mucosa. Head is atraumatic, normocephalic. No nasal drainage. ABDOMEN: Soft. Distended. Tenderness right upper quadrant NEUROLOGIC: Confused LABORATORY DATA: WBC 27 Hgb 9.4 platelets 178 sons 136 potassium 4.1 creatinine 5.7 hemoglobin A1c 6.6 Lactic acid 3.1 on admission down to 2.0 Total bilirubin 4.6 down to 3.3 AST 1212 now 1202 ALT 412 up to 560 alk phos 378 up to 394 Elevated pro calcitonin level Acetaminophen less than 10 Influenza not detected RSV not detected Covid 19 not detected IMAGING: Abdominal x-ray nonspecific bowel gas pattern without acute process. Abdominal ultrasound thickening gallbladder wall with sludge. Correlate for acute cholecystitis. Hepatosplenomegaly. Mild ascites. Positive Guy sign. ASSESSMENT: 1. Right upper quadrant abdominal pain. Possible cholecystitis 2. Gallbladder wall thickening with sludge noted on abdominal ultrasound 3. Elevated liver enzymes and total bilirubin. Need to rule out choledocholithiasis 4. Dizziness and hypotension at hemodialysis center 5. Leukocytosis PLAN: -MRCP ordered for further evaluation of possible choledocholithiasis -Continue to monitor LFTs -Continue antibiotics -Continue supportive care -Patient is currently nothing by mouth Thank you for this consultation Physician Family Law Paralegal note has been reviewed by physician. Signing provider agrees with the documented findings, assessment, and plan of care. Past Medical History Past Medical History: Diabetes Mellitus, Dialysis, GERD/Reflux, Hyperlipidemia, Hypertension, Pneumonia, Renal Disease Additional Past Medical History / Comment(s): End stage renal disease currently on hemodialysis, diabetes mellitus, hypertension, acid reflux and recent hospitalization for right lung pneumonia and parapneumonic effusion. History of Any Multi-Drug Resistant Organisms: None Reported Past Surgical History: Hernia Repair Additional Past Surgical History / Comment(s): umb hernia repair/mesh, rt upper chest dialysis cath, multiple large volume paracentesis procedures Past Anesthesia/Blood Transfusion Reactions: No Reported Reaction Additional Past Anesthesia/Blood Transfusion Reaction / Comm: clausterphobia Past Psychological History: No Psychological Hx Reported Smoking Status: Former smoker Past Alcohol Use History: None Reported Additional Past Alcohol Use History / Comment(s): started smoking at age 16 and quit at age 38 smoked 1-2 ppd Past Drug Use History: None Reported - Past Family History Mother Family Medical History: No Reported History Additional Family Medical History / Comment(s): alive healthy age 82 Father Family Medical History: Diabetes Mellitus, Liver Disease, Renal Disease Additional Family Medical History / Comment(s): kidney/liver failure Medications and Allergies Home Medications Medication Instructions Recorded Confirmed Type amLODIPine [Norvasc] 10 mg PO DAILY #30 tab 09/21/17 02/12/22 Rx Albuterol Sulfate [Ventolin HFA] 1 - 2 puff INHALATION RT-Q6H PRN 07/17/20 02/12/22 History Loratadine 10 mg PO DAILY 07/17/20 02/12/22 History carvediloL [Coreg] 25 mg PO BID 07/17/20 02/12/22 History Ibuprofen [Motrin] 400 - 800 mg PO Q4H PRN 11/11/21 02/12/22 History cloNIDine HCL [Catapres] 0.1 mg PO TID 11/11/21 02/12/22 History hydrALAZINE HCL [Apresoline] 100 mg PO TID 11/11/21 02/12/22 History Acetaminophen-Codeine 300-30mg 1 - 2 tab PO Q4-6H PRN 02/03/22 02/12/22 History [Tylenol w/codeine #3] Velphoro 500mg Chewable Tab 1,500 mg PO TID-W/MEALS 02/12/22 02/12/22 History Velphoro 500mg Chewable Tab 500 mg PO BID PRN 02/12/22 02/12/22 History Allergies Allergy/AdvReac Type Severity Reaction Status Date / Time No Known Allergies Allergy Verified 02/12/22 12:13 Surgical - Exam Vital Signs Temp Pulse Resp BP Pulse Ox 97.5 F L 53 L 18 86/52 94 L 02/12/22 07:14 02/12/22 07:14 02/12/22 07:14 02/12/22 07:14 02/12/22 07:14 Results - Labs 02/14/22 05:55 02/14/22 05:55 Abnormal Lab Results - Last 24 Hours (Table) 02/13/22 02/13/22 02/14/22 Range/Units 12:06 12:58 05:55 WBC 22.40 H (4.50-10.00) X 10*3/uL RBC 3.08 L (4.40-5.60) X 10*6/uL Hgb 9.4 L (13.0-17.0) g/dL Hct 29.3 L (39.6-50.0) % RDW 15.8 H (11.5-14.5) % MPV 12.4 H (9.5-12.2) fL Absolute Nucleated RBC 0.06 H (0.00-0.00) X 10*3/uL Metamyelocytes % 1 H (0-0) % Myelocytes % 1 H (0-0) % Promyelocytes % 4 H (0-0) % Neutrophils # (Manual) 19.71 H (2.00-8.90) X 10*3/uL Lymphocytes # (Manual) 0.22 L (0.90-5.00) X 10*3/uL Eosinophils # (Manual) 0.45 H (0.04-0.35) X 10*3/uL NRBC/100 WBC Diff 0.3 H (0.0-0.0) /100 WBCS Chloride (96-109) mmol/L Carbon Dioxide (20.0-27.5) mmol/L Anion Gap (10.00-18.00) mmol/L BUN (9.0-27.0) mg/dL Creatinine (0.6-1.5) mg/dL Est GFR (CKD-EPI)AfAm (60.0-200.0) Est GFR (CKD-EPI)NonAf (60.0-200.0) BUN/Creatinine Ratio (12.00-20.00) Ratio Glucose (70-110) mg/dL POC Glucose (mg/dL) 116 H (70-110) mg/dL Calcium (8.7-10.3) mg/dL Magnesium (1.5-2.4) mg/dL Total Bilirubin (0.30-1.20) mg/dL AST (14-35) U/L ALT (10-49) U/L Alkaline Phosphatase (41-126) U/L Total Protein (6.2-8.2) g/dL Albumin (3.8-4.9) g/dL Albumin/Globulin Ratio (1.60-3.17) g/dL Procalcitonin >100.00 H (0.02-0.09) ng/mL 02/14/22 02/14/22 Range/Units 05:55 11:07 WBC (4.50-10.00) X 10*3/uL RBC (4.40-5.60) X 10*6/uL Hgb (13.0-17.0) g/dL Hct (39.6-50.0) % RDW (11.5-14.5) % MPV (9.5-12.2) fL Absolute Nucleated RBC (0.00-0.00) X 10*3/uL Metamyelocytes % (0-0) % Myelocytes % (0-0) % Promyelocytes % (0-0) % Neutrophils # (Manual) (2.00-8.90) X 10*3/uL Lymphocytes # (Manual) (0.90-5.00) X 10*3/uL Eosinophils # (Manual) (0.04-0.35) X 10*3/uL NRBC/100 WBC Diff (0.0-0.0) /100 WBCS Chloride 95 L (96-109) mmol/L Carbon Dioxide 19.1 L (20.0-27.5) mmol/L Anion Gap 22.20 H (10.00-18.00) mmol/L BUN 51.3 H (9.0-27.0) mg/dL Creatinine 5.7 H (0.6-1.5) mg/dL Est GFR (CKD-EPI)AfAm 11.2 L (60.0-200.0) Est GFR (CKD-EPI)NonAf 9.7 L (60.0-200.0) BUN/Creatinine Ratio 8.95 L (12.00-20.00) Ratio Glucose 116 H (70-110) mg/dL POC Glucose (mg/dL) 116 H (70-110) mg/dL Calcium 8.6 L (8.7-10.3) mg/dL Magnesium 2.5 H (1.5-2.4) mg/dL Total Bilirubin 3.30 H (0.30-1.20) mg/dL AST 1202 H (14-35) U/L ALT 560 H (10-49) U/L Alkaline Phosphatase 394 H (41-126) U/L Total Protein 5.2 L (6.2-8.2) g/dL Albumin 2.7 L (3.8-4.9) g/dL Albumin/Globulin Ratio 1.12 L (1.60-3.17) g/dL Procalcitonin (0.02-0.09) ng/mL Microbiology - Last 24 Hours (Table) 02/12/22 08:21 Blood Culture Gram Stain - Preliminary Blood 02/12/22 08:06 Blood Culture Gram Stain - Preliminary Blood 02/12/22 08:06 Blood Culture - Final Blood 02/12/22 08:21 Blood Culture - Final Blood Diabetes panel 02/14/22 Range/Units 05:55 Sodium 136 (135-145) mmol/L Potassium 4.1 (3.5-5.5) mmol/L Chloride 95 L (96-109) mmol/L Carbon Dioxide 19.1 L (20.0-27.5) mmol/L BUN 51.3 H (9.0-27.0) mg/dL Creatinine 5.7 H (0.6-1.5) mg/dL Glucose 116 H (70-110) mg/dL Calcium 8.6 L (8.7-10.3) mg/dL AST 1202 H (14-35) U/L ALT 560 H (10-49) U/L Alkaline Phosphatase 394 H (41-126) U/L Total Protein 5.2 L (6.2-8.2) g/dL Albumin 2.7 L (3.8-4.9) g/dL Calcium panel 02/14/22 Range/Units 05:55 Calcium 8.6 L (8.7-10.3) mg/dL Albumin 2.7 L (3.8-4.9) g/dL Pituitary panel 02/14/22 Range/Units 05:55 Sodium 136 (135-145) mmol/L Potassium 4.1 (3.5-5.5) mmol/L Chloride 95 L (96-109) mmol/L Carbon Dioxide 19.1 L (20.0-27.5) mmol/L BUN 51.3 H (9.0-27.0) mg/dL Creatinine 5.7 H (0.6-1.5) mg/dL Glucose 116 H (70-110) mg/dL Calcium 8.6 L (8.7-10.3) mg/dL Adrenal panel 02/14/22 Range/Units 05:55 Sodium 136 (135-145) mmol/L Potassium 4.1 (3.5-5.5) mmol/L Chloride 95 L (96-109) mmol/L Carbon Dioxide 19.1 L (20.0-27.5) mmol/L BUN 51.3 H (9.0-27.0) mg/dL Creatinine 5.7 H (0.6-1.5) mg/dL Glucose 116 H (70-110) mg/dL Calcium 8.6 L (8.7-10.3) mg/dL Total Bilirubin 3.30 H (0.30-1.20) mg/dL AST 1202 H (14-35) U/L ALT 560 H (10-49) U/L Alkaline Phosphatase 394 H (41-126) U/L Total Protein 5.2 L (6.2-8.2) g/dL Albumin 2.7 L (3.8-4.9) g/dL
--- NOTE | 2022-02-14 15:34 | CT ---
EXAMINATION TYPE: CT brain wo con DATE OF EXAM: 02/14/2022 COMPARISON: 07/17/2020 HISTORY: ams, weakness CT DLP: 1141 mGycm Automated exposure control for dose reduction was used. FINDINGS: The ventricles, basal cisterns and sulci overlying the cerebral convexities demonstrate mild enlargem ent. Left posterior fossa arachnoid cyst measuring approximately 4.9 x 2.6 cm. Within the subcutaneou s tissues there are soft tissue calcification or ossification is stable. There is no evidence for intracranial hemorrhage or sulcal effacement. There is decreased attenuation within the periventricular white matter and deep white matter of both cerebral hemispheres, compatib le with chronic small vessel ischemia. No mass effects are seen. If symptoms persist consider MRI. IMPRESSION: 1. Large posterior fossa cyst most likely on the basis of an arachnoid cyst. 2. Degenerative and nonspecific white matter changes most typical of remote ischemia. No acute hemorr hermann or mass effect.
--- NOTE | 2022-02-14 16:17 | P.PN ---
Subjective Progress Note Date: 02/14/22 Patient was 61-year-old male came in with complaints of tiredness weakness drowsiness. Patient has been constipated as well. Patient was given Tylenol 3 after he is a dental procedure patient pain is not bad at this time. Patient the blood pressure is extremely low was given IV fluids in ER patient is Monday and Monday hemodialysis schedule a patient doesn't have a short is a doesn't have any pulmonary edema on the chest x-ray because of which are hemanalysis be is being held at this time and nephrology's recording cautious hydration because of his hypotension. Patient's sodium is also low at 134. Patient appears to have toxicity from codeine and decreased excretion because of renal dysfunction. Patient appears bit encephalopathic 02/13/2022 Patient is evaluated today on medical floor. He is confused and drowsy. Nursing reports increased confusion. Blood pressure continues to run low in the high 90s. Remains afebrile. Sinus bradycardia on the heart monitor. He is receiving I V normal saline at 75 mls per hour. Plan per nephrology is to undergo hemodialysis today. Patient does have increased abdominal distention today, has positive bowel sounds there is no focal tenderness noted on exam. AST and ALT are increased. He did have lactic acidosis on admission as well. He does have consistent leukocytosis today 27.4. Blood cultures are currently pending at this time. Creatinine shows worsening renal function. He has not had any urine output per patient he does make some urine. He reports that bowels are moving. Will check a procalcitonin level and if elevated add empiric antibiotics and consult infectious disease. 02/14/2022 Patient evaluated on medical floor. He continues to be drowsy, he is arousable. Speech is slurred. He does have right facial droop today unclear if this is secondary to mild right facial swelling there is some tenderness to touch. No focal weakness noted however he has significant generalized weakness. Procalcitonin level came back yesterday at >100 and he was started on IV cefepime, blood cultures came back positive last night gram positive, streptococcus species. Infectious disease on consult and IV vancomycin has been added. Liver enzymes and bili remain elevated and abdominal ultrasound was done which shows gallbladder with sludge possible acute cholecystitis. Lipase is elevated at 5815. Patient is scheduled for MRCP to evaluated for choledocholelisthiasis. White count today 22.40, hgb 9.4, sodium 136, BUN 51.3, creatinine 5.7 today. Glucose in the 100s. Review of Systems Unable to complete full review of systems patient is drowsy today he continues to be confused. Does report right upper quadrant abdominal pain, worse with palpation. PHYSICAL EXAMINATION: GENERAL: The patient is drowsy sleepy oriented 2, not in any acute distress. Well developed, well nourished. Pale. HEENT: Pupils are round and equally reacting to light. EOMI. No scleral icterus. No conjunctival pallor. Normocephalic, atraumatic. No pharyngeal erythema. No thyromegaly. She does have multiple caries state but no abscess CARDIOVASCULAR: S1 and S2 present. No murmurs, rubs, or gallops. PULMONARY: Chest is clear to auscultation, no wheezing or crackles. ABDOMEN: Soft, RUQ tenderness, nondistended, normoactive bowel sounds. No palpable organomegaly. MUSCULOSKELETAL: No joint swelling or deformity. EXTREMITIES: No cyanosis, clubbing, or pedal edema. NEUROLOGICAL: Gross neurological examination did not reveal any focal deficits. Diffuse generalized weakness and confusion appear encephalopathic. Has evidence for right facial droop today. SKIN: No rashes. Assessment and plan Assessment -Volume overload patient missed hemodialysis secondary to hypotension and dizziness, [place] [address] -Altered mental status secondary toxic metabolic encephalopathy secondary to recent opiate use, and sepsis source of infection under investigation possible gallbladder versus recent dental procedure. -Sepsis present on admission patient has significant leukocytosis, had dental work done recently and also suspicion for acute cholecystitis. -Lactic acidosis on admission, normalized -Chronic kidney disease stage IV because of hypertension, initially hypotensive, blood pressure has improved. -Elevated transaminases patient is scheduled for MRCP -Recurrent ascites with frequent paracentesis about every 2 weeks S/P paracentesis on 02/03 with 5.8 Liters of straw colored fluid off -Mild troponin elevation secondary to renal disease -hyponatremia, normalized -Gastroesophageal reflux disease DVT prophylaxis: Subcutaneous heparin GI prophylaxis: IV pepcid Plan Avoid use of opiates IV vancomycin, IV cefepime Status post hemodialysis yesterday Brain CT, neurology consultation Nephrology following Infectious disease following General surgery consultation MRCP scheduled rule out choledocholelisthiasis Monitor labs closely Prognosis remains guarded Plan Continue IV antibiotics and monitor closely. General surgery evaluation recommend patient to undergo MRCP with further recommendations. Currently NPO. Neurology has also been consulted for further evaluation. Recommend to repeat labs in the AM. Recommend patient be upgraded to stepdown unit. The impression and plan of care has been dictated by Lorie Gonzales, Nurse Practitioner as directed. Dr. Alisson MD I have performed a history and physical examination and medical decision making of this patient, discussed the same with the dictator, and agree with the dictators assessment and plan as written, documented as a scribe. Based on total visit time, I have performed more than 50% of this visit. Objective - Vital Signs Vital signs: Vital Signs Temp 97.9 F 02/14/22 12:19 Pulse 53 L 02/14/22 12:19 Resp 16 02/14/22 12:19 BP 125/61 02/14/22 12:19 Pulse Ox 94 L 02/14/22 12:19 FiO2 Intake & Output 02/13/22 02/14/22 02/14/22 18:59 06:59 18:59 Intake Total 900 1050 0 Output Total 490 Balance 410 1050 0 Weight 60 kg Intake: Intake, IV Titration 600 450 Amount Cefepime 1 gm In Sodium 50 Chloride 0.9% 50 ml @ 12. 5 mls/hr IVPB Q12HR [facility] Rx#:[id number] Sodium Chloride 0.9% 1, 600 400 000 ml @ 75 mls/hr IV . [id number] [facility] Rx#:[id number] Oral 600 0 Hemodialysis 300 Output: Hemodialysis 490 Other: Voiding Method Urinal Urinal Urinal # Voids 0 # Bowel Movements 2 - Labs CBC & Chem 7: 02/14/22 05:55 02/14/22 05:55 Labs: Abnormal Lab Results - Last 24 Hours (Table) 02/13/22 02/14/22 02/14/22 Range/Units 12:58 05:55 05:55 WBC 22.40 H (4.50-10.00) X 10*3/uL RBC 3.08 L (4.40-5.60) X 10*6/uL Hgb 9.4 L (13.0-17.0) g/dL Hct 29.3 L (39.6-50.0) % RDW 15.8 H (11.5-14.5) % MPV 12.4 H (9.5-12.2) fL Absolute Nucleated RBC 0.06 H (0.00-0.00) X 10*3/uL Metamyelocytes % 1 H (0-0) % Myelocytes % 1 H (0-0) % Promyelocytes % 4 H (0-0) % Neutrophils # (Manual) 19.71 H (2.00-8.90) X 10*3/uL Lymphocytes # (Manual) 0.22 L (0.90-5.00) X 10*3/uL Eosinophils # (Manual) 0.45 H (0.04-0.35) X 10*3/uL NRBC/100 WBC Diff 0.3 H (0.0-0.0) /100 WBCS Chloride 95 L (96-109) mmol/L Carbon Dioxide 19.1 L (20.0-27.5) mmol/L Anion Gap 22.20 H (10.00-18.00) mmol/L BUN 51.3 H (9.0-27.0) mg/dL Creatinine 5.7 H (0.6-1.5) mg/dL Est GFR (CKD-EPI)AfAm 11.2 L (60.0-200.0) Est GFR (CKD-EPI)NonAf 9.7 L (60.0-200.0) BUN/Creatinine Ratio 8.95 L (12.00-20.00) Ratio Glucose 116 H (70-110) mg/dL POC Glucose (mg/dL) (70-110) mg/dL Calcium 8.6 L (8.7-10.3) mg/dL Magnesium 2.5 H (1.5-2.4) mg/dL Total Bilirubin 3.30 H (0.30-1.20) mg/dL AST 1202 H (14-35) U/L ALT 560 H (10-49) U/L Alkaline Phosphatase 394 H (41-126) U/L Total Protein 5.2 L (6.2-8.2) g/dL Albumin 2.7 L (3.8-4.9) g/dL Albumin/Globulin Ratio 1.12 L (1.60-3.17) g/dL Lipase (23-300) U/L Procalcitonin >100.00 H (0.02-0.09) ng/mL 02/14/22 02/14/22 Range/Units 08:05 11:07 WBC (4.50-10.00) X 10*3/uL RBC (4.40-5.60) X 10*6/uL Hgb (13.0-17.0) g/dL Hct (39.6-50.0) % RDW (11.5-14.5) % MPV (9.5-12.2) fL Absolute Nucleated RBC (0.00-0.00) X 10*3/uL Metamyelocytes % (0-0) % Myelocytes % (0-0) % Promyelocytes % (0-0) % Neutrophils # (Manual) (2.00-8.90) X 10*3/uL Lymphocytes # (Manual) (0.90-5.00) X 10*3/uL Eosinophils # (Manual) (0.04-0.35) X 10*3/uL NRBC/100 WBC Diff (0.0-0.0) /100 WBCS Chloride (96-109) mmol/L Carbon Dioxide (20.0-27.5) mmol/L Anion Gap (10.00-18.00) mmol/L BUN (9.0-27.0) mg/dL Creatinine (0.6-1.5) mg/dL Est GFR (CKD-EPI)AfAm (60.0-200.0) Est GFR (CKD-EPI)NonAf (60.0-200.0) BUN/Creatinine Ratio (12.00-20.00) Ratio Glucose (70-110) mg/dL POC Glucose (mg/dL) 116 H (70-110) mg/dL Calcium (8.7-10.3) mg/dL Magnesium (1.5-2.4) mg/dL Total Bilirubin (0.30-1.20) mg/dL AST (14-35) U/L ALT (10-49) U/L Alkaline Phosphatase (41-126) U/L Total Protein (6.2-8.2) g/dL Albumin (3.8-4.9) g/dL Albumin/Globulin Ratio (1.60-3.17) g/dL Lipase 5815 H (23-300) U/L Procalcitonin (0.02-0.09) ng/mL Microbiology - Last 24 Hours (Table) 02/12/22 08:06 Blood Culture Gram Stain - Preliminary Blood Blood Culture - Preliminary Streptococcus species 02/12/22 08:21 Blood Culture Gram Stain - Preliminary Blood 02/12/22 08:06 Blood Culture - Final Blood 02/12/22 08:21 Blood Culture - Final Blood Assessment and Plan Time with Patient: Greater than 30
[2022-02-14 17:02] LABS: Glucose,Whole Blood 109 mg/dL (70-110)
[2022-02-14 20:51] LABS: Glucose,Whole Blood 112 mg/dL (70-110)
[2022-02-14] MEDS ORDERED: FAMOTIDINE 20 MG TAB PO SCH (21:00)
[2022-02-14] MEDS ORDERED: CEFEPIME 1 GM in SODIUM CHLORIDE 0.9% 50 ML IVPB SCH (21:00)
--- NOTE | 2022-02-14 22:26 | P.CONS ---
History of Present Illness - Reason for Consult Consult date: 02/14/22 Elevated pro calcitonin Requesting physician: Lorie Gonzales - Chief Complaint Weakness and tooth extraction site pain x few days - History of Present Illness Patient is a 61-year-old male with a past medical history significant for end-stage renal disease on hemodialysis through the left arm AV fistula patient presenting to the ER 2 days ago on 02/12/2022, patient was noticed to have elevated blood pressure at the dialysis center at the patient advised to go to the hospital patient be complaining of feeling weak since his teeth work done last week apparently the patient did have extraction of all of his tooth on the lower jaw has been complaining of pain at that site describing it to be sharp 7- 8 out of 10 no radiation patient on presentation to the hospital was afebrile and no fever have been recorded subsequently patient did have white count 25,000 with a left shift did have elevated beta creatinine as well as elevated liver enzymes lipase [id number] he did have procalcitonin more than 100 that has prompted this infectious disease consultation and the patient did have blood cultures drawn which came back positive with gram-positive cocci patient did have a chest x-ray no acute cardiopulmonary process abdominal x-ray nonspecific bowel gas pattern abdominal ultrasound thickened gallbladder wall with sludge correlate for acute gastritis and hepatosplenomegaly repeat chest x-ray no acute pulmonary process patient currently denies having any chest pain or shortness of breath or cough no nausea vomiting abdominal pain no diarrhea Review of Systems Positive point has been mentioned in the HPI rest of the systems are negative Past Medical History Past Medical History: Diabetes Mellitus, Dialysis, GERD/Reflux, Hyperlipidemia, Hypertension, Pneumonia, Renal Disease Additional Past Medical History / Comment(s): End stage renal disease currently on hemodialysis, diabetes mellitus, hypertension, acid reflux and recent hospitalization for right lung pneumonia and parapneumonic effusion. History of Any Multi-Drug Resistant Organisms: None Reported Past Surgical History: Hernia Repair Additional Past Surgical History / Comment(s): umb hernia repair/mesh, rt upper chest dialysis cath, multiple large volume paracentesis procedures Past Anesthesia/Blood Transfusion Reactions: No Reported Reaction Additional Past Anesthesia/Blood Transfusion Reaction / Comm: clausterphobia Past Psychological History: No Psychological Hx Reported Smoking Status: Former smoker Past Alcohol Use History: None Reported Additional Past Alcohol Use History / Comment(s): started smoking at age 16 and quit at age 38 smoked 1-2 ppd Past Drug Use History: None Reported - Past Family History Mother Family Medical History: No Reported History Additional Family Medical History / Comment(s): alive healthy age 82 Father Family Medical History: Diabetes Mellitus, Liver Disease, Renal Disease Additional Family Medical History / Comment(s): kidney/liver failure Medications and Allergies Home Medications Medication Instructions Recorded Confirmed Type amLODIPine [Norvasc] 10 mg PO DAILY #30 tab 09/21/17 02/12/22 Rx Albuterol Sulfate [Ventolin HFA] 1 - 2 puff INHALATION RT-Q6H PRN 07/17/20 02/12/22 History Loratadine 10 mg PO DAILY 07/17/20 02/12/22 History Ibuprofen [Motrin] 400 - 800 mg PO Q4H PRN 11/11/21 02/12/22 History cloNIDine HCL [Catapres] 0.1 mg PO TID 11/11/21 02/12/22 History Acetaminophen-Codeine 300-30mg 1 - 2 tab PO Q4-6H PRN 02/03/22 02/12/22 History [Tylenol w/codeine #3] Ampicillin-Sulbactam [Unasyn] 3 gm IVPB Q24HR each 02/25/22 Rx Aspirin 81 mg PO DAILY tab 02/25/22 Rx Sevelamer [Renvela] 500 mg PO TID-W/MEALS tab 02/25/22 Rx carvediloL [Coreg] 3.125 mg PO BID-W/MEALS tab 02/25/22 Rx Allergies Allergy/AdvReac Type Severity Reaction Status Date / Time No Known Allergies Allergy Verified 02/12/22 12:13 Physical Exam Vitals: Vital Signs Temp Pulse Resp BP Pulse Ox 02/14/22 04:24 97.6 F 53 L 18 141/62 93 L 02/13/22 20:29 98.4 F 54 L 16 111/56 93 L 02/13/22 20:00 16 02/13/22 15:21 98.0 F 66 16 108/34 02/13/22 12:45 58 L 18 112/62 92 L Intake and Output 02/13/22 02/14/22 02/14/22 22:59 06:59 14:59 Intake Total 900 1050 0 Output Total 490 Balance 410 1050 0 Intake: Intake, IV Titration 600 450 Amount Cefepime 1 gm In Sodium 50 Chloride 0.9% 50 ml @ 12. 5 mls/hr IVPB Q12HR [facility] Rx#:[id number] Sodium Chloride 0.9% 1, 600 400 000 ml @ 75 mls/hr IV . [id number] [facility] Rx#:[id number] Oral 600 0 Hemodialysis 300 Output: Hemodialysis 490 Other: Voiding Method Urinal # Voids 0 # Bowel Movements 2 Weight 60 kg GENERAL DESCRIPTION: Middle-aged male lying in bed, no distress. No tachypnea or accessory muscle of respiration use. HEENT: Shows Pallor , no scleral icterus. Oral mucous membrane is dry. No pharyngeal erythema or thrush, the tooth extraction site with no significant swelling or redness NECK: Trachea central, no thyromegaly. LUNGS: Unlabored breathing. Clear to auscultation anteriorly. No wheeze or crackle. HEART: S1, S2, regular rate and rhythm. No loud murmur ABDOMEN: Soft, no tenderness , guarding or rigidity, no organomegaly EXTREMITIES: No edema of feet. SKIN: No rash, no masses palpable. NEUROLOGICAL: The patient is awake, alert, oriented x3, mood and affect normal. Results CBC & Chem 7: 02/25/22 07:35 02/25/22 07:35 Labs: Abnormal Lab Results - Last 24 Hours (Table) 02/13/22 02/13/22 02/14/22 Range/Units 12:06 12:58 05:55 WBC 22.40 H (4.50-10.00) X 10*3/uL RBC 3.08 L (4.40-5.60) X 10*6/uL Hgb 9.4 L (13.0-17.0) g/dL Hct 29.3 L (39.6-50.0) % RDW 15.8 H (11.5-14.5) % MPV 12.4 H (9.5-12.2) fL Absolute Nucleated RBC 0.06 H (0.00-0.00) X 10*3/uL Metamyelocytes % 1 H (0-0) % Myelocytes % 1 H (0-0) % Promyelocytes % 4 H (0-0) % Neutrophils # (Manual) 19.71 H (2.00-8.90) X 10*3/uL Lymphocytes # (Manual) 0.22 L (0.90-5.00) X 10*3/uL Eosinophils # (Manual) 0.45 H (0.04-0.35) X 10*3/uL NRBC/100 WBC Diff 0.3 H (0.0-0.0) /100 WBCS Chloride (96-109) mmol/L Carbon Dioxide (20.0-27.5) mmol/L Anion Gap (10.00-18.00) mmol/L BUN (9.0-27.0) mg/dL Creatinine (0.6-1.5) mg/dL Est GFR (CKD-EPI)AfAm (60.0-200.0) Est GFR (CKD-EPI)NonAf (60.0-200.0) BUN/Creatinine Ratio (12.00-20.00) Ratio Glucose (70-110) mg/dL POC Glucose (mg/dL) 116 H (70-110) mg/dL Calcium (8.7-10.3) mg/dL Magnesium (1.5-2.4) mg/dL Total Bilirubin (0.30-1.20) mg/dL AST (14-35) U/L ALT (10-49) U/L Alkaline Phosphatase (41-126) U/L Total Protein (6.2-8.2) g/dL Albumin (3.8-4.9) g/dL Albumin/Globulin Ratio (1.60-3.17) g/dL Procalcitonin >100.00 H (0.02-0.09) ng/mL 02/14/22 Range/Units 05:55 WBC (4.50-10.00) X 10*3/uL RBC (4.40-5.60) X 10*6/uL Hgb (13.0-17.0) g/dL Hct (39.6-50.0) % RDW (11.5-14.5) % MPV (9.5-12.2) fL Absolute Nucleated RBC (0.00-0.00) X 10*3/uL Metamyelocytes % (0-0) % Myelocytes % (0-0) % Promyelocytes % (0-0) % Neutrophils # (Manual) (2.00-8.90) X 10*3/uL Lymphocytes # (Manual) (0.90-5.00) X 10*3/uL Eosinophils # (Manual) (0.04-0.35) X 10*3/uL NRBC/100 WBC Diff (0.0-0.0) /100 WBCS Chloride 95 L (96-109) mmol/L Carbon Dioxide 19.1 L (20.0-27.5) mmol/L Anion Gap 22.20 H (10.00-18.00) mmol/L BUN 51.3 H (9.0-27.0) mg/dL Creatinine 5.7 H (0.6-1.5) mg/dL Est GFR (CKD-EPI)AfAm 11.2 L (60.0-200.0) Est GFR (CKD-EPI)NonAf 9.7 L (60.0-200.0) BUN/Creatinine Ratio 8.95 L (12.00-20.00) Ratio Glucose 116 H (70-110) mg/dL POC Glucose (mg/dL) (70-110) mg/dL Calcium 8.6 L (8.7-10.3) mg/dL Magnesium 2.5 H (1.5-2.4) mg/dL Total Bilirubin 3.30 H (0.30-1.20) mg/dL AST 1202 H (14-35) U/L ALT 560 H (10-49) U/L Alkaline Phosphatase 394 H (41-126) U/L Total Protein 5.2 L (6.2-8.2) g/dL Albumin 2.7 L (3.8-4.9) g/dL Albumin/Globulin Ratio 1.12 L (1.60-3.17) g/dL Procalcitonin (0.02-0.09) ng/mL Microbiology - Last 24 Hours (Table) 02/12/22 08:21 Blood Culture Gram Stain - Preliminary Blood 02/12/22 08:06 Blood Culture Gram Stain - Preliminary Blood 02/12/22 08:06 Blood Culture - Final Blood 02/12/22 08:21 Blood Culture - Final Blood Assessment and Plan (1) Bacteremia Current Visit: Yes Status: Acute Code(s): R78.81 - BACTEREMIA SNOMED Code(s): 6053188 Plan: 1patient present to hospital with elevated blood pressure now with evidence of gram-positive bacteremia patient did have a recent tooth extraction and has been complaining of pain to the jaw area possible source of his bacteremia patient did have an abnormal ultrasound suspicious for cholecystitis And the patient did have elevated liver enzymes and a question of possible choledocholithiasis and cholangitis responsible for his bacteremia. 2blood cultures will be repeated document clearance of bacteremia. 3we will start the patient on vancomycin pending identification of the blood culture and continue with cefepime in view of the abnormal ultrasound suspicious for cholecystitis waiting for general surgery evaluation. We will follow on clinical condition and cultures to further adjust medication if needed Thank you for this consultation will follow this patient along with you Time with Patient: Greater than 30
[2022-02-15 05:53] LABS: Glucose,Whole Blood 118 mg/dL (70-110)
[2022-02-15] MEDS: INSULIN ASPART (NovoLOG) 100 UNIT/ML VIAL SQ SCH ×4 (06:14→19:50)
[2022-02-15] MEDS: MIDODRINE 5 MG TAB PO SCH ×3 (06:14→16:07)
[2022-02-15] MEDS: VELPHORO PO SCH ×3 (06:15→16:07)
[2022-02-15 07:49] LABS: HCT 29.5 % (39.0-53.0); HGB 9.8 gm/dL (13.0-17.5); MCH 31.4 pg (25.0-35.0); MCHC 33.1 g/dL (31.0-37.0); MCV 94.8 fL (80.0-100.0); Mean Platelet Volume 10.8; Platelet Count 174 k/uL (150-450); RBC 3.11 m/uL (4.30-5.90); RDW 15.2 % (11.5-15.5); WBC 19.7 k/uL (3.8-10.6)
[2022-02-15 08:17] LABS: Albumin 2.6 g/dL (3.5-5.0); Calcium 8.5 mg/dL (8.4-10.2); Potassium 3.8 mmol/L (3.5-5.1); Total Protein 5.4 g/dL (6.3-8.2)
[2022-02-15 08:53] LABS: C Reactive Protein 21.4 mg/dL (<1.0)
[2022-02-15 08:54] LABS: Band Neutrophils % 2 %; Eosinophils # (M) 0.39 k/uL (0-0.7); Lymphocytes # (M) 0.99 k/uL (1.0-4.8); Metamyelocytes # (M) 0.99 k/uL (0); Metamyelocytes % 5 %; Monocytes # (M) 1.18 k/uL (0-1.0); Myelocytes # (M) 0.79 k/uL (0); Myelocytes % 4 %; Neutrophils % (M) 78 %; Nucleated Red Blood Cells 0 /100 WBC (0-0); Total Cells Counted 200
[2022-02-15] MEDS: traMADol 50 MG TAB PO SCH ×4 (08:54→22:35)
[2022-02-15] MEDS: FAMOTIDINE 20 MG TAB PO SCH (08:56)
[2022-02-15] MEDS: HEPARIN SODIUM,PORCINE/PF 5,000 UNIT/0.5 ML SYRINGE SQ SCH ×2 (08:56→19:50)
[2022-02-15] MEDS ORDERED: VANCOMYCIN 1,000 MG in SODIUM CHLORIDE 0.9% 250 ML IVPB ONE (09:00)
[2022-02-15] MEDS ORDERED: cloNIDine HCL 0.1 MG TAB PO PRN (09:02)
[2022-02-15] MEDS: carvediloL 12.5 MG TAB PO SCH ×2 (09:08→18:03)
--- NOTE | 2022-02-15 09:49 | P.PN ---
Subjective Patient is seen for follow-up for end-stage renal disease. Admitted to the hospital with hypotension Patient has been confused. Maintained on empiric antibiotics. Blood pressure is currently not low. In fact on the high side Ultrasound showed possible underlying acute cholecystitis Complaining of pain in the lower jaw at the site of removal of teeth Blood cultures grew Streptococcus species. Currently being followed by ID Patient is scheduled for hemodialysis today Objective - Vital Signs Vital signs: Vital Signs Temp 98.4 F 02/15/22 08:55 Pulse 56 L 02/15/22 08:55 Resp 16 02/15/22 08:55 BP 162/74 02/15/22 08:55 Pulse Ox 95 02/15/22 08:55 FiO2 Intake & Output 02/14/22 02/15/22 02/15/22 18:59 06:59 18:59 Intake Total 300 0 Output Total 700 0 Balance -400 0 Weight 55.5 kg Intake: Oral 0 0 Hemodialysis 300 Output: Urine 0 Hemodialysis 700 Other: Voiding Method Urinal Diaper # Voids 1 - Exam Patient is awake, comfortable, no acute distress He is confused. But perhaps better than yesterday I cannot see the inside of the mouth clearly but there is some dried blood no significant fluid collection or abscess noted. Examination of the heart S1 and S2 Examination of the lungs bilateral breath sounds are heard Abdomen is soft nontender Examination lower extremities shows 1+ edema bilaterally [employer] exam shows patient is moving all 4 extremities but he is confused. - Labs CBC & Chem 7: 02/15/22 07:39 02/15/22 07:39 Labs: Abnormal Lab Results - Last 24 Hours (Table) 02/14/22 02/14/22 02/14/22 Range/Units 05:55 08:05 11:07 WBC (3.8-10.6) k/uL RBC (4.30-5.90) m/uL Hgb (13.0-17.5) gm/dL Hct (39.0-53.0) % Neutrophils # (Manual) (1.3-7.7) k/uL Lymphocytes # (Manual) (1.0-4.8) k/uL Monocytes # (Manual) (0-1.0) k/uL Metamyelocytes # (Man) (0) k/uL Myelocytes # (Manual) (0) k/uL Chloride 95 L (96-109) mmol/L Carbon Dioxide 19.1 L (20.0-27.5) mmol/L Anion Gap 22.20 H (10.00-18.00) mmol/L BUN 51.3 H (9.0-27.0) mg/dL Creatinine 5.7 H (0.6-1.5) mg/dL Est GFR (CKD-EPI)AfAm 11.2 L (60.0-200.0) Est GFR (CKD-EPI)NonAf 9.7 L (60.0-200.0) BUN/Creatinine Ratio 8.95 L (12.00-20.00) Ratio Glucose 116 H (70-110) mg/dL POC Glucose (mg/dL) 116 H (70-110) mg/dL Calcium 8.6 L (8.7-10.3) mg/dL Total Bilirubin 3.30 H (0.30-1.20) mg/dL AST 1202 H (14-35) U/L ALT 560 H (10-49) U/L Alkaline Phosphatase 394 H (41-126) U/L C-Reactive Protein (<1.0) mg/dL Total Protein 5.2 L (6.2-8.2) g/dL Albumin 2.7 L (3.8-4.9) g/dL Albumin/Globulin Ratio 1.12 L (1.60-3.17) g/dL Lipase 5815 H (23-300) U/L 02/14/22 02/15/22 02/15/22 Range/Units 20:50 05:52 07:39 WBC (3.8-10.6) k/uL RBC (4.30-5.90) m/uL Hgb (13.0-17.5) gm/dL Hct (39.0-53.0) % Neutrophils # (Manual) (1.3-7.7) k/uL Lymphocytes # (Manual) (1.0-4.8) k/uL Monocytes # (Manual) (0-1.0) k/uL Metamyelocytes # (Man) (0) k/uL Myelocytes # (Manual) (0) k/uL Chloride (96-109) mmol/L Carbon Dioxide 19 L (20.0-27.5) mmol/L Anion Gap (10.00-18.00) mmol/L BUN 44 H (9.0-27.0) mg/dL Creatinine 4.86 H (0.6-1.5) mg/dL Est GFR (CKD-EPI)AfAm (60.0-200.0) Est GFR (CKD-EPI)NonAf (60.0-200.0) BUN/Creatinine Ratio (12.00-20.00) Ratio Glucose 127 H (70-110) mg/dL POC Glucose (mg/dL) 112 H 118 H (70-110) mg/dL Calcium (8.7-10.3) mg/dL Total Bilirubin 5.0 H (0.30-1.20) mg/dL AST 415 H (14-35) U/L ALT 371 H (10-49) U/L Alkaline Phosphatase 383 H (41-126) U/L C-Reactive Protein 21.4 H (<1.0) mg/dL Total Protein 5.4 L (6.2-8.2) g/dL Albumin 2.6 L (3.8-4.9) g/dL Albumin/Globulin Ratio (1.60-3.17) g/dL Lipase (23-300) U/L 02/15/22 02/15/22 Range/Units 07:39 07:39 WBC 19.7 H (3.8-10.6) k/uL RBC 3.11 L (4.30-5.90) m/uL Hgb 9.8 L (13.0-17.5) gm/dL Hct 29.5 L (39.0-53.0) % Neutrophils # (Manual) 15.70 H (1.3-7.7) k/uL Lymphocytes # (Manual) 0.99 L (1.0-4.8) k/uL Monocytes # (Manual) 1.18 H (0-1.0) k/uL Metamyelocytes # (Man) 0.99 H (0) k/uL Myelocytes # (Manual) 0.79 H (0) k/uL Chloride (96-109) mmol/L Carbon Dioxide (20.0-27.5) mmol/L Anion Gap (10.00-18.00) mmol/L BUN (9.0-27.0) mg/dL Creatinine (0.6-1.5) mg/dL Est GFR (CKD-EPI)AfAm (60.0-200.0) Est GFR (CKD-EPI)NonAf (60.0-200.0) BUN/Creatinine Ratio (12.00-20.00) Ratio Glucose (70-110) mg/dL POC Glucose (mg/dL) (70-110) mg/dL Calcium (8.7-10.3) mg/dL Total Bilirubin (0.30-1.20) mg/dL AST (14-35) U/L ALT (10-49) U/L Alkaline Phosphatase (41-126) U/L C-Reactive Protein (<1.0) mg/dL Total Protein (6.2-8.2) g/dL Albumin (3.8-4.9) g/dL Albumin/Globulin Ratio (1.60-3.17) g/dL Lipase 2241 H (23-300) U/L Microbiology - Last 24 Hours (Table) 02/12/22 08:21 Blood Culture Gram Stain - Preliminary Blood Blood Culture - Preliminary Alpha Hemolytic Streptococcus 02/12/22 08:06 Blood Culture Gram Stain - Preliminary Blood Blood Culture - Preliminary Alpha Hemolytic Streptococcus Assessment and Plan Assessment: 1. End-stage renal disease on hemodialysis on a Monday schedule via AV fistula left arm 2. Sepsis with significantly elevated white count. Source not clear. Covid PCR negative. No abdominal symptoms. Chest x-ray does not show any infiltrates. Maintained on empiric antibiotics. Patient had dental work done about 2 weeks ago. Ultrasound shows possible acute cholecystitis 3. Lactic acidosis 4. CK D mineral bone disorder 5. Hypertension with CK D stage IV 6. Altered mentation 7. Elevated liver enzymes mostly secondary to hypotension. Ultrasound shows possible acute cholecystitis . Going for MRCP Plan: Repeat hemodialysis today DC IV fluids Continue with empiric antibiotics
[2022-02-15 11:53] LABS: Glucose,Whole Blood 116 mg/dL (70-110)
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
--- NOTE | 2022-02-15 13:46 | P.PN ---
Subjective Progress Note Date: 02/15/22 CHIEF COMPLAINT: Dizziness and weakness HISTORY OF PRESENT ILLNESS: Patient is undergoing hemodialysis today. He does report improvement in his abdominal pain. Denies any nausea or vomiting. Patient is still confused. He is being evaluated by neurology. Abdominal ultrasoundshow a thickened gallbladder wall with sludge and correlate for acute cholecystitis. Also hepatomegaly. Patient had MRCP completed. Results are pending. Afebrile. WBC is down from 22-19 Hgb is 9.8 platelets 174 total bili garland is elevated at 5 and trending upwards AST is down from 122-415 ALT 560 down to 371 alk phos 394-383 lipase 5815 down to 2241 positive blood cultures alpha hemolytic streptococcus. Repeat blood culture no growth PHYSICAL EXAM: VITAL SIGNS: Reviewed. GENERAL: Well-developed in no acute distress. HEENT: No sclera icterus. Extraocular movements grossly intact. Moist buccal mucosa. Head is atraumatic, normocephalic. ABDOMEN: Soft. Nondistended. Nontender. NEUROLOGIC: Confused ASSESSMENT: 1. Right upper quadrant abdominal pain. Possible cholecystitis 2. Gallbladder wall thickening with sludge noted on abdominal ultrasound 3. Elevated liver enzymes and total bilirubin. Need to rule out choledocholithiasis 4. Dizziness and hypotension at hemodialysis center 5. Leukocytosis PLAN: -follow up on MRCP results -Repeat LFTs and lipase in AM -Check ammonia level due to confusion -start clear liquid diet -Continue antibiotics -Continue supportive care Physician Loading Unit Operator note has been reviewed by physician. Signing provider agrees with the documented findings, assessment, and plan of care. Objective - Vital Signs Vital signs: Vital Signs Temp 97.3 F L 02/15/22 12:00 Pulse 57 L 02/15/22 12:00 Resp 16 02/15/22 12:00 BP 137/66 02/15/22 12:00 Pulse Ox 97 02/15/22 12:00 FiO2 Intake & Output 02/14/22 02/15/22 02/15/22 18:59 06:59 18:59 Intake Total 300 0 250 Output Total 700 0 0 Balance -400 0 250 Weight 55.5 kg Intake: Intake, IV Titration 250 Amount Vancomycin 1,000 mg In 250 Sodium Chloride 0.9% 250 ml @ 125 mls/hr IVPB ONCE ONE Rx#:[id number] Oral 0 0 0 Hemodialysis 300 Output: Urine 0 0 Hemodialysis 700 Other: Voiding Method Urinal Diaper Diaper # Voids 1 - Labs CBC & Chem 7: 02/15/22 07:39 02/15/22 07:39 Labs: Abnormal Lab Results - Last 24 Hours (Table) 02/14/22 02/14/22 02/15/22 Range/Units 08:05 20:50 05:52 WBC (3.8-10.6) k/uL RBC (4.30-5.90) m/uL Hgb (13.0-17.5) gm/dL Hct (39.0-53.0) % Neutrophils # (Manual) (1.3-7.7) k/uL Lymphocytes # (Manual) (1.0-4.8) k/uL Monocytes # (Manual) (0-1.0) k/uL Metamyelocytes # (Man) (0) k/uL Myelocytes # (Manual) (0) k/uL Carbon Dioxide (22-30) mmol/L BUN (9-20) mg/dL Creatinine (0.66-1.25) mg/dL Glucose (74-99) mg/dL POC Glucose (mg/dL) 112 H 118 H (70-110) mg/dL Total Bilirubin (0.2-1.3) mg/dL AST (17-59) U/L ALT (4-49) U/L Alkaline Phosphatase (38-126) U/L C-Reactive Protein (<1.0) mg/dL Total Protein (6.3-8.2) g/dL Albumin (3.5-5.0) g/dL Lipase 5815 H (23-300) U/L 02/15/22 02/15/22 02/15/22 Range/Units 07:39 07:39 07:39 WBC 19.7 H (3.8-10.6) k/uL RBC 3.11 L (4.30-5.90) m/uL Hgb 9.8 L (13.0-17.5) gm/dL Hct 29.5 L (39.0-53.0) % Neutrophils # (Manual) 15.70 H (1.3-7.7) k/uL Lymphocytes # (Manual) 0.99 L (1.0-4.8) k/uL Monocytes # (Manual) 1.18 H (0-1.0) k/uL Metamyelocytes # (Man) 0.99 H (0) k/uL Myelocytes # (Manual) 0.79 H (0) k/uL Carbon Dioxide 19 L (22-30) mmol/L BUN 44 H (9-20) mg/dL Creatinine 4.86 H (0.66-1.25) mg/dL Glucose 127 H (74-99) mg/dL POC Glucose (mg/dL) (70-110) mg/dL Total Bilirubin 5.0 H (0.2-1.3) mg/dL AST 415 H (17-59) U/L ALT 371 H (4-49) U/L Alkaline Phosphatase 383 H (38-126) U/L C-Reactive Protein 21.4 H (<1.0) mg/dL Total Protein 5.4 L (6.3-8.2) g/dL Albumin 2.6 L (3.5-5.0) g/dL Lipase 2241 H (23-300) U/L 02/15/22 Range/Units 11:52 WBC (3.8-10.6) k/uL RBC (4.30-5.90) m/uL Hgb (13.0-17.5) gm/dL Hct (39.0-53.0) % Neutrophils # (Manual) (1.3-7.7) k/uL Lymphocytes # (Manual) (1.0-4.8) k/uL Monocytes # (Manual) (0-1.0) k/uL Metamyelocytes # (Man) (0) k/uL Myelocytes # (Manual) (0) k/uL Carbon Dioxide (22-30) mmol/L BUN (9-20) mg/dL Creatinine (0.66-1.25) mg/dL Glucose (74-99) mg/dL POC Glucose (mg/dL) 116 H (70-110) mg/dL Total Bilirubin (0.2-1.3) mg/dL AST (17-59) U/L ALT (4-49) U/L Alkaline Phosphatase (38-126) U/L C-Reactive Protein (<1.0) mg/dL Total Protein (6.3-8.2) g/dL Albumin (3.5-5.0) g/dL Lipase (23-300) U/L Microbiology - Last 24 Hours (Table) 02/14/22 08:05 Blood Culture - Preliminary Blood No Growth after 24 hours 02/12/22 08:21 Blood Culture Gram Stain - Preliminary Blood Blood Culture - Preliminary Alpha Hemolytic Streptococcus 02/12/22 08:06 Blood Culture Gram Stain - Preliminary Blood Blood Culture - Preliminary Alpha Hemolytic Streptococcus
--- NOTE | 2022-02-15 14:26 | MR ---
MR MRCP INDICATION: Patient age:Male; 61 years old; Reason for study: elevated LFTs, RUQ pain; PHH. COMPARISON: Abdominal ultrasound 02/14/2022. TECHNIQUE: Multi planar, multi sequence MR MRCP was obtained of the abdomen. No Gadolinium given. FINDINGS: Significantly limited examination due to patient's body habitus creating artifact. The common bile duct measures up to 8 mm in diameter without definitive filling defect, stricture, ob structing mass lesion within limitations. The gallbladder is mildly distended with the wall measuring up to 3 mm which is within normal limits. No definitive filling defects identified within the gallbl adder. Sludge is suggested corresponding to ultrasound. No definitive intrahepatic biliary duct dilatation. The pancreatic duct appears within normal limits. Grossly unremarkable appearance of the kidneys, adrenal glands, pancreas, bowel on nontargeted imagin g. Diffusely significant T2 hypointense appearance of the liver and spleen. The liver is enlarged measur ing up to 20.6 cm. The spleen is enlarged measuring up to 14.7 cm. Moderate volume ascites demonstrated. Mild cardiomegaly. Diffuse subcutaneous edema. Bilateral gynecomastia. IMPRESSION: 1. Markedly limited examination due to patient's body habitus. 2. Mild extrahepatic biliary duct dilatation with the common bile duct measuring up to 8 mm. No defi nitive filling defect, stricture, or obstructing mass lesion within the significant limitations. Cons ider further evaluation with ERCP as clinically indicated. 3. Mild gallbladder distention without significant wall thickening. Suggested sludge corresponding t o ultrasound. 4. Hepatosplenomegaly with iron deposition. 5. Moderate volume ascites.
--- NOTE | 2022-02-15 14:28 | P.PN ---
Subjective Progress Note Date: 02/15/22 Patient was 61-year-old male came in with complaints of tiredness weakness drowsiness. Patient has been constipated as well. Patient was given Tylenol 3 after he is a dental procedure patient pain is not bad at this time. Patient the blood pressure is extremely low was given IV fluids in ER patient is Monday and Monday hemodialysis schedule a patient doesn't have a short is a doesn't have any pulmonary edema on the chest x-ray because of which are hemanalysis be is being held at this time and nephrology's recording cautious hydration because of his hypotension. Patient's sodium is also low at 134. Patient appears to have toxicity from codeine and decreased excretion because of renal dysfunction. Patient appears bit encephalopathic 02/13/2022 Patient is evaluated today on medical floor. He is confused and drowsy. Nursing reports increased confusion. Blood pressure continues to run low in the high 90s. Remains afebrile. Sinus bradycardia on the heart monitor. He is receiving I V normal saline at 75 mls per hour. Plan per nephrology is to undergo hemodialysis today. Patient does have increased abdominal distention today, has positive bowel sounds there is no focal tenderness noted on exam. AST and ALT are increased. He did have lactic acidosis on admission as well. He does have consistent leukocytosis today 27.4. Blood cultures are currently pending at this time. Creatinine shows worsening renal function. He has not had any urine output per patient he does make some urine. He reports that bowels are moving. Will check a procalcitonin level and if elevated add empiric antibiotics and consult infectious disease. 02/14/2022 Patient evaluated on medical floor. He continues to be drowsy, he is arousable. Speech is slurred. He does have right facial droop today unclear if this is secondary to mild right facial swelling there is some tenderness to touch. No focal weakness noted however he has significant generalized weakness. Procalcitonin level came back yesterday at >100 and he was started on IV cefepime, blood cultures came back positive last night gram positive, streptococcus species. Infectious disease on consult and IV vancomycin has been added. Liver enzymes and bili remain elevated and abdominal ultrasound was done which shows gallbladder with sludge possible acute cholecystitis. Lipase is elevated at 5815. Patient is scheduled for MRCP to evaluated for choledocholelisthiasis. White count today 22.40, hgb 9.4, sodium 136, BUN 51.3, creatinine 5.7 today. Glucose in the 100s. 02/15/2022 Patient evaluated on step down unit. Negative brain CT. Neurology work up in place. He is more awake today alert x 1 to 2. He is undergoing hemodialysis to day. Blood cultures showing alpha hemolytic streptococcus. Patient had MRCP today, surgery following and feel elevated enzymes secondary to acute pancreatitis. Review of Systems Constitutional: Denied any fatigue denied any fever. Cardio vascular: denied any chest pain, palpitations Gastrointestinal: Reports abdominal pain Pulmonary: Denied any shortness of breath cough Neurologic denied any new focal deficits All inpatient medications were reviewed and appropriate changes in these medications as dictated in the interval history and assessment and plan. PHYSICAL EXAMINATION: GENERAL: The patient is drowsy sleepy oriented 2, not in any acute distress. Well developed, well nourished. Pale. HEENT: Pupils are round and equally reacting to light. EOMI. No scleral icterus. No conjunctival pallor. Normocephalic, atraumatic. No pharyngeal erythema. No thyromegaly. She does have multiple caries state but no abscess CARDIOVASCULAR: S1 and S2 present. No murmurs, rubs, or gallops. PULMONARY: Chest is clear to auscultation, no wheezing or crackles. ABDOMEN: Soft, RUQ tenderness, nondistended, normoactive bowel sounds. No palpable organomegaly. MUSCULOSKELETAL: No joint swelling or deformity. EXTREMITIES: No cyanosis, clubbing, or pedal edema. NEUROLOGICAL: Gross neurological examination did not reveal any focal deficits. Diffuse generalized weakness. drowsy. right facial droop somewhat better today. SKIN: No rashes. Assessment and plan Assessment -Volume overload patient missed hemodialysis secondary to hypotension and dizziness, [place] [id number] -Altered mental status secondary toxic metabolic encephalopathy secondary to recent opiate use, and sepsis source of infection under investigation -Streptococcus bacteremia -Sepsis present on admission patient has significant leukocytosis, had dental work done recently -Lactic acidosis on admission, normalized -Chronic kidney disease stage IV because of hypertension, initially hypotensive, blood pressure has improved. -Elevated transaminases most likely from acute pancreatitis. Lipase improving, enzymes improving. -Recurrent ascites with frequent paracentesis about every 2 weeks S/P paracentesis on 02/03 with 5.8 Liters of straw colored fluid off -Mild troponin elevation secondary to renal disease -hyponatremia, normalized -Gastroesophageal reflux disease DVT prophylaxis: Subcutaneous heparin GI prophylaxis: IV pepcid Plan Avoid use of opiates IV vancomycin, IV unasyn Hemodialysis today Pending MRI Clear liquid diet Monitor labs closely Prognosis remains guarded The impression and plan of care has been dictated by Lorie Gonzales, Nurse Practitioner as directed. Dr. Alisson MD I have performed a history and physical examination and medical decision making of this patient, discussed the same with the dictator, and agree with the dictators assessment and plan as written, documented as a scribe. Based on total visit time, I have performed more than 50% of this visit. Objective - Vital Signs Vital signs: Vital Signs Temp 98.4 F 02/15/22 08:55 Pulse 56 L 02/15/22 08:55 Resp 16 02/15/22 08:55 BP 162/74 02/15/22 08:55 Pulse Ox 95 02/15/22 08:55 FiO2 Intake & Output 02/14/22 02/15/22 02/15/22 18:59 06:59 18:59 Intake Total 300 0 Output Total 700 0 Balance -400 0 Weight 55.5 kg Intake: Oral 0 0 Hemodialysis 300 Output: Urine 0 Hemodialysis 700 Other: Voiding Method Urinal Diaper # Voids 1 - Labs CBC & Chem 7: 02/15/22 07:39 02/15/22 07:39 Labs: Abnormal Lab Results - Last 24 Hours (Table) 02/14/22 02/14/22 02/14/22 Range/Units 05:55 05:55 08:05 WBC 22.40 H (4.50-10.00) X 10*3/uL RBC 3.08 L (4.40-5.60) X 10*6/uL Hgb 9.4 L (13.0-17.0) g/dL Hct 29.3 L (39.6-50.0) % RDW 15.8 H (11.5-14.5) % MPV 12.4 H (9.5-12.2) fL Absolute Nucleated RBC 0.06 H (0.00-0.00) X 10*3/uL Metamyelocytes % 1 H (0-0) % Myelocytes % 1 H (0-0) % Promyelocytes % 4 H (0-0) % Neutrophils # (Manual) 19.71 H (2.00-8.90) X 10*3/uL Lymphocytes # (Manual) 0.22 L (0.90-5.00) X 10*3/uL Monocytes # (Manual) (0-1.0) k/uL Eosinophils # (Manual) 0.45 H (0.04-0.35) X 10*3/uL Metamyelocytes # (Man) (0) k/uL Myelocytes # (Manual) (0) k/uL NRBC/100 WBC Diff 0.3 H (0.0-0.0) /100 WBCS Chloride 95 L (96-109) mmol/L Carbon Dioxide 19.1 L (20.0-27.5) mmol/L Anion Gap 22.20 H (10.00-18.00) mmol/L BUN 51.3 H (9.0-27.0) mg/dL Creatinine 5.7 H (0.6-1.5) mg/dL Est GFR (CKD-EPI)AfAm 11.2 L (60.0-200.0) Est GFR (CKD-EPI)NonAf 9.7 L (60.0-200.0) BUN/Creatinine Ratio 8.95 L (12.00-20.00) Ratio Glucose 116 H (70-110) mg/dL POC Glucose (mg/dL) (70-110) mg/dL Calcium 8.6 L (8.7-10.3) mg/dL Total Bilirubin 3.30 H (0.30-1.20) mg/dL AST 1202 H (14-35) U/L ALT 560 H (10-49) U/L Alkaline Phosphatase 394 H (41-126) U/L C-Reactive Protein (<1.0) mg/dL Total Protein 5.2 L (6.2-8.2) g/dL Albumin 2.7 L (3.8-4.9) g/dL Albumin/Globulin Ratio 1.12 L (1.60-3.17) g/dL Lipase 5815 H (23-300) U/L 02/14/22 02/14/22 02/15/22 Range/Units 11:07 20:50 05:52 WBC (4.50-10.00) X 10*3/uL RBC (4.40-5.60) X 10*6/uL Hgb (13.0-17.0) g/dL Hct (39.6-50.0) % RDW (11.5-14.5) % MPV (9.5-12.2) fL Absolute Nucleated RBC (0.00-0.00) X 10*3/uL Metamyelocytes % (0-0) % Myelocytes % (0-0) % Promyelocytes % (0-0) % Neutrophils # (Manual) (2.00-8.90) X 10*3/uL Lymphocytes # (Manual) (0.90-5.00) X 10*3/uL Monocytes # (Manual) (0-1.0) k/uL Eosinophils # (Manual) (0.04-0.35) X 10*3/uL Metamyelocytes # (Man) (0) k/uL Myelocytes # (Manual) (0) k/uL NRBC/100 WBC Diff (0.0-0.0) /100 WBCS Chloride (96-109) mmol/L Carbon Dioxide (20.0-27.5) mmol/L Anion Gap (10.00-18.00) mmol/L BUN (9.0-27.0) mg/dL Creatinine (0.6-1.5) mg/dL Est GFR (CKD-EPI)AfAm (60.0-200.0) Est GFR (CKD-EPI)NonAf (60.0-200.0) BUN/Creatinine Ratio (12.00-20.00) Ratio Glucose (70-110) mg/dL POC Glucose (mg/dL) 116 H 112 H 118 H (70-110) mg/dL Calcium (8.7-10.3) mg/dL Total Bilirubin (0.30-1.20) mg/dL AST (14-35) U/L ALT (10-49) U/L Alkaline Phosphatase (41-126) U/L C-Reactive Protein (<1.0) mg/dL Total Protein (6.2-8.2) g/dL Albumin (3.8-4.9) g/dL Albumin/Globulin Ratio (1.60-3.17) g/dL Lipase (23-300) U/L 02/15/22 02/15/22 02/15/22 Range/Units 07:39 07:39 07:39 WBC 19.7 H (4.50-10.00) X 10*3/uL RBC 3.11 L (4.40-5.60) X 10*6/uL Hgb 9.8 L (13.0-17.0) g/dL Hct 29.5 L (39.6-50.0) % RDW (11.5-14.5) % MPV (9.5-12.2) fL Absolute Nucleated RBC (0.00-0.00) X 10*3/uL Metamyelocytes % (0-0) % Myelocytes % (0-0) % Promyelocytes % (0-0) % Neutrophils # (Manual) 15.70 H (2.00-8.90) X 10*3/uL Lymphocytes # (Manual) 0.99 L (0.90-5.00) X 10*3/uL Monocytes # (Manual) 1.18 H (0-1.0) k/uL Eosinophils # (Manual) (0.04-0.35) X 10*3/uL Metamyelocytes # (Man) 0.99 H (0) k/uL Myelocytes # (Manual) 0.79 H (0) k/uL NRBC/100 WBC Diff (0.0-0.0) /100 WBCS Chloride (96-109) mmol/L Carbon Dioxide 19 L (20.0-27.5) mmol/L Anion Gap (10.00-18.00) mmol/L BUN 44 H (9.0-27.0) mg/dL Creatinine 4.86 H (0.6-1.5) mg/dL Est GFR (CKD-EPI)AfAm (60.0-200.0) Est GFR (CKD-EPI)NonAf (60.0-200.0) BUN/Creatinine Ratio (12.00-20.00) Ratio Glucose 127 H (70-110) mg/dL POC Glucose (mg/dL) (70-110) mg/dL Calcium (8.7-10.3) mg/dL Total Bilirubin 5.0 H (0.30-1.20) mg/dL AST 415 H (14-35) U/L ALT 371 H (10-49) U/L Alkaline Phosphatase 383 H (41-126) U/L C-Reactive Protein 21.4 H (<1.0) mg/dL Total Protein 5.4 L (6.2-8.2) g/dL Albumin 2.6 L (3.8-4.9) g/dL Albumin/Globulin Ratio (1.60-3.17) g/dL Lipase 2241 H (23-300) U/L Microbiology - Last 24 Hours (Table) 02/12/22 08:06 Blood Culture Gram Stain - Preliminary Blood Blood Culture - Preliminary Streptococcus species 02/12/22 08:21 Blood Culture Gram Stain - Preliminary Blood Assessment and Plan Time with Patient: Less than 30
--- NOTE | 2022-02-15 16:40 | P.PN ---
Subjective Progress Note Date: 02/15/22 Principal diagnosis: bacteremia Patient is a 61-year-old male with a past medical history significant for end-stage renal disease on hemodialysis through the left arm AV fistula patient presenting to the ER 2 days ago on 02/12/2022, patient was noticed to have elevated blood pressure at the dialysis center at the patient advised to go to the hospital patient be complaining of feeling weak since his teeth work done last week , patient was noticed to have streptococcal bacteremia also elevated liver enzymes concern for choledocholithiasis. On today's evaluation that is 02/15/2022, the patient denies having any fever or any chills the patient is pretty static comfortably sitting coming of pain to the right upper jaw area no chest pain shortness of breath or cough abdominal pain is currently controlled and no diarrhea Objective - Vital Signs Vital signs: Vital Signs Temp 98.4 F 02/15/22 08:55 Pulse 56 L 02/15/22 08:55 Resp 16 02/15/22 08:55 BP 162/74 02/15/22 08:55 Pulse Ox 95 02/15/22 08:55 FiO2 Intake & Output 02/14/22 02/15/22 02/15/22 18:59 06:59 18:59 Intake Total 300 0 Output Total 700 0 Balance -400 0 Weight 55.5 kg Intake: Oral 0 0 Hemodialysis 300 Output: Urine 0 Hemodialysis 700 Other: Voiding Method Urinal Diaper Diaper # Voids 1 - Exam GENERAL DESCRIPTION: Middle-aged male lying in bed in no distress RESPIRATORY SYSTEM: Unlabored breathing , decreased breath sounds at bases HEART: S1 S2 regular rate and rhythm , ABDOMEN: Soft , no tenderness EXTREMITIES: No edema feet - Labs CBC & Chem 7: 02/15/22 07:39 02/15/22 07:39 Labs: Abnormal Lab Results - Last 24 Hours (Table) 02/14/22 02/14/22 02/15/22 Range/Units 08:05 20:50 05:52 WBC (3.8-10.6) k/uL RBC (4.30-5.90) m/uL Hgb (13.0-17.5) gm/dL Hct (39.0-53.0) % Neutrophils # (Manual) (1.3-7.7) k/uL Lymphocytes # (Manual) (1.0-4.8) k/uL Monocytes # (Manual) (0-1.0) k/uL Metamyelocytes # (Man) (0) k/uL Myelocytes # (Manual) (0) k/uL Carbon Dioxide (22-30) mmol/L BUN (9-20) mg/dL Creatinine (0.66-1.25) mg/dL Glucose (74-99) mg/dL POC Glucose (mg/dL) 112 H 118 H (70-110) mg/dL Total Bilirubin (0.2-1.3) mg/dL AST (17-59) U/L ALT (4-49) U/L Alkaline Phosphatase (38-126) U/L C-Reactive Protein (<1.0) mg/dL Total Protein (6.3-8.2) g/dL Albumin (3.5-5.0) g/dL Lipase 5815 H (23-300) U/L 02/15/22 02/15/22 02/15/22 Range/Units 07:39 07:39 07:39 WBC 19.7 H (3.8-10.6) k/uL RBC 3.11 L (4.30-5.90) m/uL Hgb 9.8 L (13.0-17.5) gm/dL Hct 29.5 L (39.0-53.0) % Neutrophils # (Manual) 15.70 H (1.3-7.7) k/uL Lymphocytes # (Manual) 0.99 L (1.0-4.8) k/uL Monocytes # (Manual) 1.18 H (0-1.0) k/uL Metamyelocytes # (Man) 0.99 H (0) k/uL Myelocytes # (Manual) 0.79 H (0) k/uL Carbon Dioxide 19 L (22-30) mmol/L BUN 44 H (9-20) mg/dL Creatinine 4.86 H (0.66-1.25) mg/dL Glucose 127 H (74-99) mg/dL POC Glucose (mg/dL) (70-110) mg/dL Total Bilirubin 5.0 H (0.2-1.3) mg/dL AST 415 H (17-59) U/L ALT 371 H (4-49) U/L Alkaline Phosphatase 383 H (38-126) U/L C-Reactive Protein 21.4 H (<1.0) mg/dL Total Protein 5.4 L (6.3-8.2) g/dL Albumin 2.6 L (3.5-5.0) g/dL Lipase 2241 H (23-300) U/L 02/15/22 Range/Units 11:52 WBC (3.8-10.6) k/uL RBC (4.30-5.90) m/uL Hgb (13.0-17.5) gm/dL Hct (39.0-53.0) % Neutrophils # (Manual) (1.3-7.7) k/uL Lymphocytes # (Manual) (1.0-4.8) k/uL Monocytes # (Manual) (0-1.0) k/uL Metamyelocytes # (Man) (0) k/uL Myelocytes # (Manual) (0) k/uL Carbon Dioxide (22-30) mmol/L BUN (9-20) mg/dL Creatinine (0.66-1.25) mg/dL Glucose (74-99) mg/dL POC Glucose (mg/dL) 116 H (70-110) mg/dL Total Bilirubin (0.2-1.3) mg/dL AST (17-59) U/L ALT (4-49) U/L Alkaline Phosphatase (38-126) U/L C-Reactive Protein (<1.0) mg/dL Total Protein (6.3-8.2) g/dL Albumin (3.5-5.0) g/dL Lipase (23-300) U/L Microbiology - Last 24 Hours (Table) 02/14/22 08:05 Blood Culture - Preliminary Blood No Growth after 24 hours 02/12/22 08:21 Blood Culture Gram Stain - Preliminary Blood Blood Culture - Preliminary Alpha Hemolytic Streptococcus 02/12/22 08:06 Blood Culture Gram Stain - Preliminary Blood Blood Culture - Preliminary Alpha Hemolytic Streptococcus Assessment and Plan (1) Bacteremia Current Visit: Yes Status: Acute Code(s): R78.81 - BACTEREMIA SNOMED Code(s): 9647109 Plan: 1patient present to hospital with elevated blood pressure now with evidence of gram-positive bacteremia patient did have a recent tooth extraction and has been complaining of pain to the jaw area possible source of his bacteremia patient did have an abnormal ultrasound suspicious for cholecystitis And the patient did have elevated liver enzymes and a question of possible choledocholithiasis and cholangitis responsible for his bacteremia. 2blood cultures has been be repeated document clearance of bacteremia. 3we will switch antibiotics to Unasyn and monitor clinical course closely Time with Patient: Less than 30
[2022-02-15 16:52] LABS: Glucose,Whole Blood 103 mg/dL (70-110)
[2022-02-15 19:29] LABS: Glucose,Whole Blood 177 mg/dL (70-110)
[2022-02-15] MEDS: AMPICILLIN-SULBACTAM 3 GM in SODIUM CHLORIDE 0.9% 100 ML IVPB SCH (19:50)
[2022-02-16] MEDS: MIDODRINE 5 MG TAB PO SCH ×3 (03:33→16:52)
[2022-02-16] MEDS: VELPHORO PO SCH ×3 (03:34→16:48)
[2022-02-16 06:17] LABS: Glucose,Whole Blood 148 mg/dL (70-110)
[2022-02-16] MEDS: INSULIN ASPART (NovoLOG) 100 UNIT/ML VIAL SQ SCH ×4 (06:18→20:57)
[2022-02-16] MEDS: carvediloL 12.5 MG TAB PO SCH ×2 (06:27→16:52)
[2022-02-16] MEDS: AMPICILLIN-SULBACTAM 3 GM in SODIUM CHLORIDE 0.9% 100 ML IVPB SCH ×2 (08:17→21:11)
[2022-02-16] MEDS: FAMOTIDINE 20 MG TAB PO SCH (08:17)
[2022-02-16] MEDS: traMADol 50 MG TAB PO SCH ×4 (08:17→21:11)
[2022-02-16] MEDS: HEPARIN SODIUM,PORCINE/PF 5,000 UNIT/0.5 ML SYRINGE SQ SCH ×2 (08:17→21:11)
[2022-02-16 08:29] LABS: Albumin 2.6 g/dL (3.5-5.0); Calcium 8.1 mg/dL (8.4-10.2); Potassium 3.4 mmol/L (3.5-5.1); Total Bilirubin 6.3 mg/dL (0.2-1.3); Total Protein 5.4 g/dL (6.3-8.2)
[2022-02-16 08:42] LABS: HCT 29.5 % (39.0-53.0); HGB 9.4 gm/dL (13.0-17.5); MCH 30.1 pg (25.0-35.0); MCV 93.9 fL (80.0-100.0); Mean Platelet Volume 11.5; Platelet Count 162 k/uL (150-450); RBC 3.14 m/uL (4.30-5.90); RDW 15.8 % (11.5-15.5); WBC 18.1 k/uL (3.8-10.6)
[2022-02-16 09:39] LABS: Vancomycin,Random 8.6 ug/mL
[2022-02-16 09:53] LABS: Band Neutrophils % 2 %; Eosinophils # (M) 0.18 k/uL (0-0.7); Lymphocytes # (M) 0.91 k/uL (1.0-4.8); Metamyelocytes # (M) 0.91 k/uL (0); Metamyelocytes % 5 %; Monocytes # (M) 1.27 k/uL (0-1.0); Myelocytes # (M) 0.18 k/uL (0); Myelocytes % 1 %; Neutrophils % (M) 80 %; Nucleated Red Blood Cells 0 /100 WBC (0-0); Total Cells Counted 200
[2022-02-16 09:54] LABS: Anisocytosis (M) Present; Poikilocytosis (M) Present; Toxic Granulation Present
--- NOTE | 2022-02-16 11:10 | MR ---
EXAMINATION TYPE: MR brain wo con DATE OF EXAM: 02/16/2022 COMPARISON: 02/14/2022 CT brain HISTORY: Right facial weakness, confusion. CONTRAST: Performed utilizing 0 mL intravenous Gadavist gadolinium contrast. TECHNIQUE: Multiplanar, multiecho imaging on a 3.0 Mallory magnet is performed through the brain. Stud y is performed within 24 hours of arrival to the hospital. The craniovertebral junction is normal. The pituitary is normal. Arachnoid cyst within the posterio r fossa. Left cerebellum somewhat small Diffusion-weighted imaging is performed. There are scattered punctate subcortical white matter stanley es within the right centrum semiovale and within the periventricular white matter of the curiel radia ta bilaterally. Punctate areas within the trilobar region on the left subcortical parietal occipital region on the right. Largest area on the left is in the curiel radiata measuring 0.3 cm. Series 303 i mage 168. Largest area on the right is in the anterior right curiel radiata measuring 0.3 cm. Series 303 and 176. There are scattered punctate areas of hyperintensity on T2 and Inversion Recovery weighted sequences which are non-specific but can be related to microvascular ischemic changes. Ventricles and sulci are appropriate for the patient age. Fluid-filled right mastoid air cells are present. Correlate for right mastoiditis. IMPRESSIONS: 1. Scattered bilateral cerebral punctate white matter changes compatible with acute ischemic changes best visualized on diffusion-weighted imaging. Consider septic emboli within the differential. 2. Clinical correlation for right mastoiditis.
--- NOTE | 2022-02-16 11:27 | P.PN ---
Subjective Patient is seen for follow-up for end-stage renal disease. Admitted to the hospital with hypotension Patient has been confused. Maintained on empiric antibiotics. Ultrasound showed possible underlying acute cholecystitis Pain in the mouth is improved Blood cultures grew Streptococcus species. Tolerated hemodialysis well yesterday with UF of 1.4 L Objective - Vital Signs Vital signs: Vital Signs Temp 97.5 F L 02/16/22 08:15 Pulse 55 L 02/16/22 08:15 Resp 18 02/16/22 08:15 BP 132/66 02/16/22 08:15 Pulse Ox 98 02/16/22 08:15 FiO2 Intake & Output 02/15/22 02/16/22 02/16/22 18:59 06:59 18:59 Intake Total 1470 480 Output Total 1491 0 Balance -21 480 Weight 55.5 kg 56.5 kg Intake: Intake, IV Titration 250 Amount Vancomycin 1,000 mg In 250 Sodium Chloride 0.9% 250 ml @ 125 mls/hr IVPB ONCE ONE Rx#:[id number] Oral 720 480 Hemodialysis 500 Output: Urine 0 0 Hemodialysis 1491 Other: Voiding Method Diaper Diaper Diaper - Exam Patient is awake, comfortable, no acute distress He is confused. But perhaps better than yesterday I cannot see the inside of the mouth clearly but there is some dried blood no s ignificant fluid collection or abscess noted. 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 - Labs CBC & Chem 7: 02/16/22 06:35 02/16/22 06:35 Labs: Abnormal Lab Results - Last 24 Hours (Table) 02/14/22 02/15/22 02/15/22 Range/Units 05:55 11:52 19:26 WBC (3.8-10.6) k/uL RBC (4.30-5.90) m/uL Hgb (13.0-17.5) gm/dL Hct (39.0-53.0) % RDW (11.5-15.5) % Neutrophils # (Manual) (1.3-7.7) k/uL Lymphocytes # (Manual) (1.0-4.8) k/uL Monocytes # (Manual) (0-1.0) k/uL Metamyelocytes # (Man) (0) k/uL Myelocytes # (Manual) (0) k/uL Promyelocytes # (Man) 0.90 H (0) k/uL Sodium (137-145) mmol/L Potassium (3.5-5.1) mmol/L BUN (9-20) mg/dL Creatinine (0.66-1.25) mg/dL Glucose (74-99) mg/dL POC Glucose (mg/dL) 116 H 177 H (70-110) mg/dL Calcium (8.4-10.2) mg/dL Total Bilirubin (0.2-1.3) mg/dL AST (17-59) U/L ALT (4-49) U/L Alkaline Phosphatase (38-126) U/L Total Protein (6.3-8.2) g/dL Albumin (3.5-5.0) g/dL Lipase (23-300) U/L 02/16/22 02/16/22 02/16/22 Range/Units 06:15 06:35 06:35 WBC 18.1 H (3.8-10.6) k/uL RBC 3.14 L (4.30-5.90) m/uL Hgb 9.4 L (13.0-17.5) gm/dL Hct 29.5 L (39.0-53.0) % RDW 15.8 H (11.5-15.5) % Neutrophils # (Manual) 14.80 H (1.3-7.7) k/uL Lymphocytes # (Manual) 0.91 L (1.0-4.8) k/uL Monocytes # (Manual) 1.27 H (0-1.0) k/uL Metamyelocytes # (Man) 0.91 H (0) k/uL Myelocytes # (Manual) 0.18 H (0) k/uL Promyelocytes # (Man) (0) k/uL Sodium 133 L (137-145) mmol/L Potassium 3.4 L (3.5-5.1) mmol/L BUN 31 H (9-20) mg/dL Creatinine 3.76 H (0.66-1.25) mg/dL Glucose 138 H (74-99) mg/dL POC Glucose (mg/dL) 148 H (70-110) mg/dL Calcium 8.1 L (8.4-10.2) mg/dL Total Bilirubin 6.3 H (0.2-1.3) mg/dL AST 145 H (17-59) U/L ALT 249 H (4-49) U/L Alkaline Phosphatase 394 H (38-126) U/L Total Protein 5.4 L (6.3-8.2) g/dL Albumin 2.6 L (3.5-5.0) g/dL Lipase 1394 H (23-300) U/L Microbiology - Last 24 Hours (Table) 02/14/22 08:05 Blood Culture - Preliminary Blood No Growth after 48 hours 02/15/22 07:39 Blood Culture - Preliminary Blood No Growth after 24 hours 02/12/22 08:21 Blood Culture Gram Stain - Final Blood Blood Culture - Final Alpha Hemolytic Streptococcus 02/12/22 08:06 Blood Culture Gram Stain - Final Blood Blood Culture - Final Alpha Hemolytic Streptococcus Assessment and Plan Assessment: 1. End-stage renal disease on hemodialysis on a Monday schedule via AV fistula left arm 2. Sepsis with significantly elevated white count. Source not clear. Covid PCR negative. No abdominal symptoms. Chest x-ray does not show any infiltrates. Maintained on empiric antibiotics. Patient had dental work done about 2 weeks ago. Ultrasound shows possible acute cholecystitis 3. Lactic acidosis 4. CK D mineral bone disorder 5. Hypertension with CK D stage IV 6. Altered mentation 7. Elevated liver enzymes mostly secondary to hypotension. Ultrasound shows possible acute cholecystitis . Status post MRCP which showed mild extrahepatic biliary duct allocation with CBD at 8 mm Plan: Hemodialysis in a.m. Continue with empiric antibiotics
[2022-02-16 11:39] LABS: INR 1.1 (<1.2); Prothrombin Time 11.5 sec (9.0-12.0)
[2022-02-16 11:41] LABS: Glucose,Whole Blood 163 mg/dL (70-110)
--- NOTE | 2022-02-16 12:54 | P.PN ---
Subjective Progress Note Date: 02/16/22 CHIEF COMPLAINT: Dizziness and weakness HISTORY OF PRESENT ILLNESS: Patient is lying in bed comfortably. He denies any abdominal pain. He appears less confused this morning. Denies any nausea or vomiting. He tolerated clear liquids. MRCP markedly limited exam. Mild extrahepatic biliary duct dilatation with the common bile duct measuring up to 8 mm. No definitive filling defect, stricture or obstructive mass lesion. Mild gallbladder distention without significant wall thickening. Suggested sludge corresponding to ultrasound. Hepatosplenomegaly with iron deposits. Moderate volume ascites. Afebrile. WBC is down from 19-18 hemoglobin 9.4 sodium is 133 potassium 3.4 total bilirubin is trending upwards from 5-6.3 AST is down from 4:15 to 145 ALT 371 down to 249 alk phos 383 up to 394 ammonia level less than 9 lipase 1394 blood cultures alpha hemolytic streptococcus with repeat blood cu lture negative Patient seen and examined with Dr. wagoner PHYSICAL EXAM: VITAL SIGNS: Reviewed. GENERAL: Well-developed in no acute distress. HEENT: No sclera icterus. Extraocular movements grossly intact. Moist buccal mucosa. Head is atraumatic, normocephalic. ABDOMEN: Soft. distended. Fluid wave present. Nontender. NEUROLOGIC: Confused ASSESSMENT: 1. Cholecystitis with sludge noted on both the abdominal ultrasound and MRCP 2. Possible cholangitis 3. Elevated liver enzymes and total bilirubin 4. Leukocytosis 5. Pancreatitis 6. Abdominal ascites PLAN: -Patient may need ERCP if continues to have liver decompensation. Patient may need to be transferred to tertiary care center for ERCP -Continue clear liquid diet -Continue antibiotics -Continue supportive care -Patient scheduled for possible paracentesis today for ascites Physician Go Cart Mechanic note has been reviewed by physician. Signing provider agrees with the documented findings, assessment, and plan of care. Objective - Vital Signs Vital signs: Vital Signs Temp 97.5 F L 02/16/22 08:15 Pulse 55 L 02/16/22 08:15 Resp 18 02/16/22 08:15 BP 132/66 02/16/22 08:15 Pulse Ox 98 02/16/22 08:15 FiO2 Intake & Output 02/15/22 02/16/22 02/16/22 18:59 06:59 18:59 Intake Total 1470 480 Output Total 1491 0 Balance -21 480 Weight 55.5 kg 56.5 kg Intake: Intake, IV Titration 250 Amount Vancomycin 1,000 mg In 250 Sodium Chloride 0.9% 250 ml @ 125 mls/hr IVPB ONCE ONE Rx#:[id number] Oral 720 480 Hemodialysis 500 Output: Urine 0 0 Hemodialysis 1491 Other: Voiding Method Diaper Diaper Diaper - Labs CBC & Chem 7: 02/16/22 06:35 02/16/22 06:35 Labs: Abnormal Lab Results - Last 24 Hours (Table) 02/14/22 02/15/22 02/15/22 Range/Units 05:55 11:52 19:26 WBC (3.8-10.6) k/uL RBC (4.30-5.90) m/uL Hgb (13.0-17.5) gm/dL Hct (39.0-53.0) % RDW (11.5-15.5) % Neutrophils # (Manual) (1.3-7.7) k/uL Lymphocytes # (Manual) (1.0-4.8) k/uL Monocytes # (Manual) (0-1.0) k/uL Metamyelocytes # (Man) (0) k/uL Myelocytes # (Manual) (0) k/uL Promyelocytes # (Man) 0.90 H (0) k/uL Sodium (137-145) mmol/L Potassium (3.5-5.1) mmol/L BUN (9-20) mg/dL Creatinine (0.66-1.25) mg/dL Glucose (74-99) mg/dL POC Glucose (mg/dL) 116 H 177 H (70-110) mg/dL Calcium (8.4-10.2) mg/dL Total Bilirubin (0.2-1.3) mg/dL AST (17-59) U/L ALT (4-49) U/L Alkaline Phosphatase (38-126) U/L Total Protein (6.3-8.2) g/dL Albumin (3.5-5.0) g/dL Lipase (23-300) U/L 02/16/22 02/16/22 02/16/22 Range/Units 06:15 06:35 06:35 WBC 18.1 H (3.8-10.6) k/uL RBC 3.14 L (4.30-5.90) m/uL Hgb 9.4 L (13.0-17.5) gm/dL Hct 29.5 L (39.0-53.0) % RDW 15.8 H (11.5-15.5) % Neutrophils # (Manual) 14.80 H (1.3-7.7) k/uL Lymphocytes # (Manual) 0.91 L (1.0-4.8) k/uL Monocytes # (Manual) 1.27 H (0-1.0) k/uL Metamyelocytes # (Man) 0.91 H (0) k/uL Myelocytes # (Manual) 0.18 H (0) k/uL Promyelocytes # (Man) (0) k/uL Sodium 133 L (137-145) mmol/L Potassium 3.4 L (3.5-5.1) mmol/L BUN 31 H (9-20) mg/dL Creatinine 3.76 H (0.66-1.25) mg/dL Glucose 138 H (74-99) mg/dL POC Glucose (mg/dL) 148 H (70-110) mg/dL Calcium 8.1 L (8.4-10.2) mg/dL Total Bilirubin 6.3 H (0.2-1.3) mg/dL AST 145 H (17-59) U/L ALT 249 H (4-49) U/L Alkaline Phosphatase 394 H (38-126) U/L Total Protein 5.4 L (6.3-8.2) g/dL Albumin 2.6 L (3.5-5.0) g/dL Lipase 1394 H (23-300) U/L Microbiology - Last 24 Hours (Table) 02/14/22 08:05 Blood Culture - Preliminary Blood No Growth after 48 hours 02/15/22 07:39 Blood Culture - Preliminary Blood No Growth after 24 hours 02/12/22 08:21 Blood Culture Gram Stain - Final Blood Blood Culture - Final Alpha Hemolytic Streptococcus 02/12/22 08:06 Blood Culture Gram Stain - Final Blood Blood Culture - Final Alpha Hemolytic Streptococcus
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
--- NOTE | 2022-02-16 15:32 | P.PN ---
Subjective Progress Note Date: 02/16/22 Patient was 61-year-old male came in with complaints of tiredness weakness drowsiness. Patient has been constipated as well. Patient was given Tylenol 3 after he is a dental procedure patient pain is not bad at this time. Patient the blood pressure is extremely low was given IV fluids in ER patient is Monday and Monday hemodialysis schedule a patient doesn't have a short is a doesn't have any pulmonary edema on the chest x-ray because of which are hemanalysis be is being held at this time and nephrology's recording cautious hydration because of his hypotension. Patient's sodium is also low at 134. Patient appears to have toxicity from codeine and decreased excretion because of renal dysfunction. Patient appears bit encephalopathic 02/13/2022 Patient is evaluated today on medical floor. He is confused and drowsy. Nursing reports increased confusion. Blood pressure continues to run low in the high 90s. Remains afebrile. Sinus bradycardia on the heart monitor. He is receiving I V normal saline at 75 mls per hour. Plan per nephrology is to undergo hemodialysis today. Patient does have increased abdominal distention today, has positive bowel sounds there is no focal tenderness noted on exam. AST and ALT are increased. He did have lactic acidosis on admission as well. He does have consistent leukocytosis today 27.4. Blood cultures are currently pending at this time. Creatinine shows worsening renal function. He has not had any urine output per patient he does make some urine. He reports that bowels are moving. Will check a procalcitonin level and if elevated add empiric antibiotics and consult infectious disease. 02/14/2022 Patient evaluated on medical floor. He continues to be drowsy, he is arousable. Speech is slurred. He does have right facial droop today unclear if this is secondary to mild right facial swelling there is some tenderness to touch. No focal weakness noted however he has significant generalized weakness. Procalcitonin level came back yesterday at >100 and he was started on IV cefepime, blood cultures came back positive last night gram positive, streptococcus species. Infectious disease on consult and IV vancomycin has been added. Liver enzymes and bili remain elevated and abdominal ultrasound was done which shows gallbladder with sludge possible acute cholecystitis. Lipase is elevated at 5815. Patient is scheduled for MRCP to evaluated for choledocholelisthiasis. White count today 22.40, hgb 9.4, sodium 136, BUN 51.3, creatinine 5.7 today. Glucose in the 100s. 02/15/2022 Patient evaluated on step down unit. Negative brain CT. Neurology work up in place. He is more awake today alert x 1 to 2. He is undergoing hemodialysis to day. Blood cultures showing alpha hemolytic streptococcus. Patient had MRCP today, surgery following and feel elevated enzymes secondary to acute pancreatitis. 02/16/2022 Patient is evaluated today on step down unit. He is more awake and alert, currently alert x 2 to 3. He continues to be drowsy. Continues with right sided facial droop, no focal weakness noted. Patient had MRI completed today showing scattered bilateral punctuate white matter changes compatible with acute ischemic changes. Possibly from septic emboli. Possibly right mastoiditis. He does complain of some pain and numbness to the face adjacent to where the tooth was extracted on his right upper jaw. Dr. Alcaraz has been consulted for further evaluation of this. Blood cultures showing alpha hemolytic streptococcus. Infectious disease following cultures, on IV unasyn. Echocardiogram has been ordered to evaluate for endocarditis. Case discussed with general surgery, MRCP has been completed there is mild extrahepatic duct dilation with the CBD measuring up to 8mm with no definitive filling defect, stricture or obstructing mass lesion noted within the limitations of exam. There is mild gallbladder wall thickening suggestive of gallbladder sludge. Patient has hepatosplenomegaly with iron deposition. Moderate volume ascites. White count is 18.1 today, hemoglobin 9.4, neutrophils 14.8. Sodium 133 today, potassium 2.4. Creatinine 3.76. Bilirubin continues to elevate up to 6.3 he does appear more jaundice today. Liver enzymes are improving overall. Lipase 1394. He remains afebrile, heart rate 54, blood pressure 120/65, 97% on room air. Review of Systems Constitutional: Reports fatigue, denied any fever. Cardio vascular: denied any chest pain, palpitations Gastrointestinal: Denies abdominal pain today, no nausea vomiting or diarrhea noted. States abdomen feels full. Pulmonary: Denied any shortness of breath cough Neurologic: Today patient does state he feels his right face near mouth is numb and can feel decreased movement. All inpatient medications were reviewed and appropriate changes in these medications as dictated in the interval history and assessment and plan. PHYSICAL EXAMINATION: GENERAL: The patient is drowsy sleepy oriented 2, not in any acute distress. W ell developed, well nourished. Pale. HEENT: Pupils are round and equally reacting to light. EOMI. No scleral icterus. No conjunctival pallor. Normocephalic, atraumatic. No pharyngeal erythema. No thyromegaly. He has Molars on the right upper jaw have been extracted. No evidence of abscess at the gumline on basic exam. Malodorous breath. CARDIOVASCULAR: S1 and S2 present. No murmurs, rubs, or gallops. PULMONARY: Chest is clear to auscultation, no wheezing or crackles. ABDOMEN: Soft, notenderness noted, nondistended, normoactive bowel sounds. No palpable organomegaly. MUSCULOSKELETAL: No joint swelling or deformity. EXTREMITIES: No cyanosis, clubbing, or pedal edema. NEUROLOGICAL: Diffuse generalized weakness. drowsy. right facial droop continues. SKIN: No rashes. Jaundice. Assessment and plan Assessment -Acute ischemic stroke there are multiple small foci over bilateral hemisphere noted on exam, concern for emboli and also septic emboli. -Altered mental status secondary toxic metabolic encephalopathy secondary to recent opiate use, and sepsis, there is also concern for stroke and neurology consulted. -Streptococcus bacteremia -Sepsis present on admission patient has significant leukocytosis, had dental work done recently with evidence of right mastoiditis on MRI, source is possibly recent dental tooth extraction vs. gallbladder -Lactic acidosis on admission, normalized -Volume overload patient missed hemodialysis secondary to hypotension and dizziness, [place] [address] - improving -Chronic kidney disease stage IV because of hypertension, initially hypotensive, blood pressure has improved. -Elevated transaminases secondary to pancreatitis with elevated lipase there is also evidence of cholecystitis with sludge. -Recurrent ascites with frequent paracentesis about every 2 weeks S/P paracentesis on 02/03 with 5.8 Liters of straw colored fluid off -Mild troponin elevation secondary to renal disease -hyponatremia -Gastroesophageal reflux disease DVT prophylaxis: Subcutaneous heparin GI prophylaxis: IV pepcid Plan Avoid use of opiates on IV unasyn Hemodialysis scheduled for tomorrow MRA brain, echocardiogram, carotid doppler ordered and pending Clear liquid diet Monitor labs closely and repeat in AM. Patient may need transfer to tertiary care center for further evaluation by GI services if further liver decompensation. The impression and plan of care has been dictated by Lorie Gonzales Nurse Prac titioner as directed. Dr. Alisson MD I have performed a history and physical examination and medical decision making of this patient, discussed the same with the dictator, and agree with the dictators assessment and plan as written, documented as a scribe. Based on total visit time, I have performed more than 50% of this visit. Objective - Vital Signs Vital signs: Vital Signs Temp 97.5 F L 02/16/22 08:15 Pulse 55 L 02/16/22 08:15 Resp 18 02/16/22 08:15 BP 132/66 02/16/22 08:15 Pulse Ox 98 02/16/22 08:15 FiO2 Intake & Output 02/15/22 02/16/22 02/16/22 18:59 06:59 18:59 Intake Total 1470 480 Output Total 1491 0 Balance -21 480 Weight 55.5 kg 56.5 kg Intake: Intake, IV Titration 250 Amount Vancomycin 1,000 mg In 250 Sodium Chloride 0.9% 250 ml @ 125 mls/hr IVPB ONCE ONE Rx#:[id number] Oral 720 480 Hemodialysis 500 Output: Urine 0 0 Hemodialysis 1491 Other: Voiding Method Diaper Diaper Diaper - Labs CBC & Chem 7: 02/16/22 06:35 02/16/22 06:35 Labs: Abnormal Lab Results - Last 24 Hours (Table) 02/14/22 02/15/22 02/16/22 Range/Units 05:55 19:26 06:15 WBC (3.8-10.6) k/uL RBC (4.30-5.90) m/uL Hgb (13.0-17.5) gm/dL Hct (39.0-53.0) % RDW (11.5-15.5) % Neutrophils # (Manual) (1.3-7.7) k/uL Lymphocytes # (Manual) (1.0-4.8) k/uL Monocytes # (Manual) (0-1.0) k/uL Metamyelocytes # (Man) (0) k/uL Myelocytes # (Manual) (0) k/uL Promyelocytes # (Man) 0.90 H (0) k/uL Sodium (137-145) mmol/L Potassium (3.5-5.1) mmol/L BUN (9-20) mg/dL Creatinine (0.66-1.25) mg/dL Glucose (74-99) mg/dL POC Glucose (mg/dL) 177 H 148 H (70-110) mg/dL Calcium (8.4-10.2) mg/dL Total Bilirubin (0.2-1.3) mg/dL AST (17-59) U/L ALT (4-49) U/L Alkaline Phosphatase (38-126) U/L Total Protein (6.3-8.2) g/dL Albumin (3.5-5.0) g/dL Lipase (23-300) U/L 02/16/22 02/16/22 02/16/22 Range/Units 06:35 06:35 11:37 WBC 18.1 H (3.8-10.6) k/uL RBC 3.14 L (4.30-5.90) m/uL Hgb 9.4 L (13.0-17.5) gm/dL Hct 29.5 L (39.0-53.0) % RDW 15.8 H (11.5-15.5) % Neutrophils # (Manual) 14.80 H (1.3-7.7) k/uL Lymphocytes # (Manual) 0.91 L (1.0-4.8) k/uL Monocytes # (Manual) 1.27 H (0-1.0) k/uL Metamyelocytes # (Man) 0.91 H (0) k/uL Myelocytes # (Manual) 0.18 H (0) k/uL Promyelocytes # (Man) (0) k/uL Sodium 133 L (137-145) mmol/L Potassium 3.4 L (3.5-5.1) mmol/L BUN 31 H (9-20) mg/dL Creatinine 3.76 H (0.66-1.25) mg/dL Glucose 138 H (74-99) mg/dL POC Glucose (mg/dL) 163 H (70-110) mg/dL Calcium 8.1 L (8.4-10.2) mg/dL Total Bilirubin 6.3 H (0.2-1.3) mg/dL AST 145 H (17-59) U/L ALT 249 H (4-49) U/L Alkaline Phosphatase 394 H (38-126) U/L Total Protein 5.4 L (6.3-8.2) g/dL Albumin 2.6 L (3.5-5.0) g/dL Lipase 1394 H (23-300) U/L Microbiology - Last 24 Hours (Table) 02/14/22 08:05 Blood Culture - Preliminary Blood No Growth after 48 hours 02/15/22 07:39 Blood Culture - Preliminary Blood No Growth after 24 hours 02/12/22 08:21 Blood Culture Gram Stain - Final Blood Blood Culture - Final Alpha Hemolytic Streptococcus 02/12/22 08:06 Blood Culture Gram Stain - Final Blood Blood Culture - Final Alpha Hemolytic Streptococcus Assessment and Plan Time with Patient: Greater than 30
[2022-02-16 16:51] LABS: Glucose,Whole Blood 164 mg/dL (70-110)
--- NOTE | 2022-02-16 17:00 | MR ---
EXAMINATION TYPE: MR angio head wo con DATE OF EXAM: 02/16/2022 4:41 PM CLINICAL INDICATION:Male, 61 years old with history of stroke with emboli. rule out mycotic aneurysm ; COMPARISON: 02/16/2022 Technical: 3-D [id number] Axial with MIP reconstruction. IV Contrast: None Findings: Vertebral arteries: The left vertebral artery signal is maintained. The right vertebral artery demons trates loss of flow void. Basilar artery: The basilar artery is intact. The basilar artery bifurcation is normal. Internal Carotid arteries: The cervical, petrous, cavernous and supraclinoid segments are normal. MARTHA: Patent with no evidence of aneurysm. ACOM: Present without evidence of aneurysm. MCA: Patent with no evidence of aneurysm. [employer]: Patent with no evidence of aneurysm. PCOM: Hypoplastic bilaterally. There is a vessel that enters and loops into the right internal auditory canal. Jony cisterna magna versus arachnoid cyst in the posterior cranial fossa. IMPRESSION: 1. No evidence of aneurysm. 2. Nonvisualization of the right vertebral artery. Consider CT neck for complete evaluation of the r ight vertebral artery not already performed. 3. Right vascular loop is into the internal auditory canal.
[2022-02-16] MEDS: ALBUMIN HUMAN 25% 50 ML in EMPTY BAG 1 BAG IVPB SCH ×2 (17:02→18:17)
--- NOTE | 2022-02-16 18:13 | US ---
EXAMINATION TYPE: US carotid duplex BILAT DATE OF EXAM: 02/16/2022 COMPARISON: MR, CT, US CLINICAL HISTORY: stroke. Stroke per order. Prior smoker. Hypertension. TECHNIQUE: Carotid duplex ultrasound examination. Indirect Doppler criteria was utilized. FINDINGS: EXAM MEASUREMENTS: RIGHT: Peak Systolic Velocity (PSV) cm/sec ----- Right CCA: 83.4 ----- Right ICA: 108.2 ----- Right ECA: 87.9 ICA/CCA ratio: 1.3 RIGHT: End Diastole cm/sec ----- Right CCA: 8.7 ----- Right ICA: 13.7 ----- Right ECA: 0.0 LEFT: Peak Systolic Velocity (PSV) cm/sec ----- Left CCA: 87.1 ----- Left ICA: 122.4 ----- Left ECA: 102.1 ICA/CCA ratio: 1.4 LEFT: End Diastole cm/sec ----- Left CCA: 8.6 ----- Left ICA: 20.2 ----- Left ECA: 8.9 VERTEBRALS (direction of flow): Right Vertebral: Waveform appears to be above and below the baseline. Left Vertebral: Antegrade Rhythm: Normal STATEMENT REQUEST CLERK NOTES: Plaque seen within bilateral bulbs and bilateral bifurcations. The waveform appear s to be above and below the baseline within the right vertebral artery- slightly limited visibility. Left vertebral artery appears to be more dominant. IMPRESSION: Less than 50% stenosis of the bilateral carotid bifurcations Criteria for Assigning % of Stenosis / Diameter reduction (Estimation based on the indirect measurements of the internal carotid artery velocities (ICA PSV). 1. Normal (no stenosis)=ICA PSV < 125 cm/s: ratio < 2.0: ICA EDV<40 cm/s. 2. Less than 50% stenosis=ICA PSV < 125 cm/s: ratio < 2.0: ICA EDV<40 cm/s. 3. 50 to 69% stenosis=ICA PSV of 125 to 230 cm/s: ration 2.0 ? 4.0: ICA EDV 40-100 cm/s. 4. Greater than 70% stenosis to near occlusion= ICA PSV > 230 cm/s: ratio > 4.0: ICA EDV > 100 cm/s. 5. Near occlusion= ICA PSV velocities may be low or undetectable: variable ratio and ICA EDV. 6. Total occlusion=unable to detect flow.
[2022-02-16 20:25] LABS: Glucose,Whole Blood 147 mg/dL (70-110)
[2022-02-16] MEDS: CHLORHEXIDINE GLUCONATE 15 ML CUP MUCOUS MEM SCH (21:11)
--- NOTE | 2022-02-16 22:20 | P.PN ---
Subjective Progress Note Date: 02/16/22 Principal diagnosis: bacteremia Patient is a 61-year-old male with a past medical history significant for end-stage renal disease on hemodialysis through the left arm AV fistula patient presenting to the ER 2 days ago on 02/12/2022, patient was noticed to have elevated blood pressure at the dialysis center at the patient advised to go to the hospital patient be complaining of feeling weak since his teeth work done last week , patient was noticed to have streptococcal bacteremia also elevated liver enzymes concern for choledocholithiasis. On today's evaluation that is 02/16/2022, the patient remains to be afebrile, the patient is breathing comfortably, the patient denies chest pain shortness of breath or cough abdominal pain is currently controlled and no diarrhea Objective - Vital Signs Vital signs: Vital Signs Temp 97.5 F L 02/16/22 08:15 Pulse 55 L 02/16/22 08:15 Resp 18 02/16/22 08:15 BP 132/66 02/16/22 08:15 Pulse Ox 98 02/16/22 08:15 FiO2 Intake & Output 02/15/22 02/16/22 02/16/22 18:59 06:59 18:59 Intake Total 1470 480 Output Total 1491 0 Balance -21 480 Weight 55.5 kg 56.5 kg Intake: Intake, IV Titration 250 Amount Vancomycin 1,000 mg In 250 Sodium Chloride 0.9% 250 ml @ 125 mls/hr IVPB ONCE ONE Rx#:[id number] Oral 720 480 Hemodialysis 500 Output: Urine 0 0 Hemodialysis 1491 Other: Voiding Method Diaper Diaper Diaper - Exam GENERAL DESCRIPTION: Middle-aged male lying in bed in no distress RESPIRATORY SYSTEM: Unlabored breathing , decreased breath sounds at bases HEART: S1 S2 regular rate and rhythm , ABDOMEN: Soft , no tenderness EXTREMITIES: No edema feet - Labs CBC & Chem 7: 02/16/22 06:35 02/16/22 06:35 Labs: Abnormal Lab Results - Last 24 Hours (Table) 02/14/22 02/15/22 02/16/22 Range/Units 05:55 19:26 06:15 WBC (3.8-10.6) k/uL RBC (4.30-5.90) m/uL Hgb (13.0-17.5) gm/dL Hct (39.0-53.0) % RDW (11.5-15.5) % Neutrophils # (Manual) (1.3-7.7) k/uL Lymphocytes # (Manual) (1.0-4.8) k/uL Monocytes # (Manual) (0-1.0) k/uL Metamyelocytes # (Man) (0) k/uL Myelocytes # (Manual) (0) k/uL Promyelocytes # (Man) 0.90 H (0) k/uL Sodium (137-145) mmol/L Potassium (3.5-5.1) mmol/L BUN (9-20) mg/dL Creatinine (0.66-1.25) mg/dL Glucose (74-99) mg/dL POC Glucose (mg/dL) 177 H 148 H (70-110) mg/dL Calcium (8.4-10.2) mg/dL Total Bilirubin (0.2-1.3) mg/dL AST (17-59) U/L ALT (4-49) U/L Alkaline Phosphatase (38-126) U/L Total Protein (6.3-8.2) g/dL Albumin (3.5-5.0) g/dL Lipase (23-300) U/L 02/16/22 02/16/22 02/16/22 Range/Units 06:35 06:35 11:37 WBC 18.1 H (3.8-10.6) k/uL RBC 3.14 L (4.30-5.90) m/uL Hgb 9.4 L (13.0-17.5) gm/dL Hct 29.5 L (39.0-53.0) % RDW 15.8 H (11.5-15.5) % Neutrophils # (Manual) 14.80 H (1.3-7.7) k/uL Lymphocytes # (Manual) 0.91 L (1.0-4.8) k/uL Monocytes # (Manual) 1.27 H (0-1.0) k/uL Metamyelocytes # (Man) 0.91 H (0) k/uL Myelocytes # (Manual) 0.18 H (0) k/uL Promyelocytes # (Man) (0) k/uL Sodium 133 L (137-145) mmol/L Potassium 3.4 L (3.5-5.1) mmol/L BUN 31 H (9-20) mg/dL Creatinine 3.76 H (0.66-1.25) mg/dL Glucose 138 H (74-99) mg/dL POC Glucose (mg/dL) 163 H (70-110) mg/dL Calcium 8.1 L (8.4-10.2) mg/dL Total Bilirubin 6.3 H (0.2-1.3) mg/dL AST 145 H (17-59) U/L ALT 249 H (4-49) U/L Alkaline Phosphatase 394 H (38-126) U/L Total Protein 5.4 L (6.3-8.2) g/dL Albumin 2.6 L (3.5-5.0) g/dL Lipase 1394 H (23-300) U/L Microbiology - Last 24 Hours (Table) 02/14/22 08:05 Blood Culture - Preliminary Blood No Growth after 48 hours 02/15/22 07:39 Blood Culture - Preliminary Blood No Growth after 24 hours 02/12/22 08:21 Blood Culture Gram Stain - Final Blood Blood Culture - Final Alpha Hemolytic Streptococcus 02/12/22 08:06 Blood Culture Gram Stain - Final Blood Blood Culture - Final Alpha Hemolytic Streptococcus Assessment and Plan (1) Bacteremia Current Visit: Yes Status: Acute Code(s): R78.81 - BACTEREMIA SNOMED Code(s): 3727763 Plan: 1patient present to hospital with elevated blood pressure now with evidence of gram-positive bacteremia patient did have a recent tooth extraction and has been complaining of pain to the jaw area possible source of his bacteremia patient did have an abnormal ultrasound suspicious for cholecystitis And the patient did have elevated liver enzymes and a question of possible choledocholithiasis and cholangitis responsible for his bacteremia. 2blood cultures revealed has been negative so far 3patient did have abnormal MRI. Reported by radiologist as possible septic emboli, however the patient is clinically behaving as the patient cleared his bacteremia very quickly, we are waiting for the echocardiogram to be completed continue with Unasyn at this point and monitor clinical course closely discussed with the MODULAR HOME CREW MEMBER for admitting team Time with Patient: Less than 30
[2022-02-17 00:35] LABS: Chol/HDL Ratio 16.72 Ratio; LDL Cholesterol,Calculated 133.1 mg/dL (0.0-131.0)
[2022-02-17] MEDS: VELPHORO PO SCH ×3 (05:30→16:48)
[2022-02-17] MEDS: MIDODRINE 5 MG TAB PO SCH ×4 (05:30→17:10)
[2022-02-17 06:15] LABS: Glucose,Whole Blood 143 mg/dL (70-110)
[2022-02-17] MEDS: INSULIN ASPART (NovoLOG) 100 UNIT/ML VIAL SQ SCH ×4 (06:37→20:32)
[2022-02-17] MEDS: carvediloL 12.5 MG TAB PO SCH ×2 (06:56→17:10)
--- NOTE | 2022-02-17 08:06 | P.PN ---
Subjective Patient is seen for follow-up for end-stage renal disease. Admitted to the hospital with hypotension Patient has been confused. Maintained on empiric antibiotics. Ultrasound showed possible underlying acute cholecystitis Pain in the mouth is improved Blood cultures grew Streptococcus species. Scheduled for hemodialysis today Objective - Vital Signs Vital signs: Vital Signs Temp 98.1 F 02/17/22 03:56 Pulse 57 L 02/17/22 03:56 Resp 16 02/17/22 03:56 BP 123/64 02/17/22 03:56 Pulse Ox 97 02/17/22 03:56 FiO2 Intake & Output 02/16/22 02/17/22 02/17/22 18:59 06:59 18:59 Intake Total 360 Output Total 0 Balance 360 Weight 55 kg Intake: Oral 360 Output: Urine 0 Other: Voiding Method Diaper Diaper - Exam Patient is awake, comfortable, no acute distress He is confused. But perhaps better than yesterday I cannot see the inside of the mouth clearly but there is some dried blood no significant fluid collection or abscess noted. 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 - Labs CBC & Chem 7: 02/16/22 06:35 02/16/22 06:35 Labs: Abnormal Lab Results - Last 24 Hours (Table) 02/16/22 02/16/22 02/16/22 Range/Units 06:35 06:35 06:35 WBC 18.1 H (3.8-10.6) k/uL RBC 3.14 L (4.30-5.90) m/uL Hgb 9.4 L (13.0-17.5) gm/dL Hct 29.5 L (39.0-53.0) % RDW 15.8 H (11.5-15.5) % Neutrophils # (Manual) 14.80 H (1.3-7.7) k/uL Lymphocytes # (Manual) 0.91 L (1.0-4.8) k/uL Monocytes # (Manual) 1.27 H (0-1.0) k/uL Metamyelocytes # (Man) 0.91 H (0) k/uL Myelocytes # (Manual) 0.18 H (0) k/uL Sodium 133 L (137-145) mmol/L Potassium 3.4 L (3.5-5.1) mmol/L BUN 31 H (9-20) mg/dL Creatinine 3.76 H (0.66-1.25) mg/dL Glucose 138 H (74-99) mg/dL POC Glucose (mg/dL) (70-110) mg/dL Calcium 8.1 L (8.4-10.2) mg/dL Total Bilirubin 6.3 H (0.2-1.3) mg/dL AST 145 H (17-59) U/L ALT 249 H (4-49) U/L Alkaline Phosphatase 394 H (38-126) U/L Total Protein 5.4 L (6.3-8.2) g/dL Albumin 2.6 L (3.5-5.0) g/dL Triglycerides 317.00 H (0.00-149.00) mg/dL Cholesterol 209.00 H (0.00-200.00) mg/dL LDL Cholesterol, Calc 133.1 H (0.0-131.0) mg/dL VLDL Cholesterol, Calc 63.40 H (5.00-40.00) mg/dL HDL Cholesterol 12.50 L (40.00-60.00) mg/dL Lipase 1394 H (23-300) U/L 02/16/22 02/16/22 02/16/22 Range/Units 11:37 16:46 20:23 WBC (3.8-10.6) k/uL RBC (4.30-5.90) m/uL Hgb (13.0-17.5) gm/dL Hct (39.0-53.0) % RDW (11.5-15.5) % Neutrophils # (Manual) (1.3-7.7) k/uL Lymphocytes # (Manual) (1.0-4.8) k/uL Monocytes # (Manual) (0-1.0) k/uL Metamyelocytes # (Man) (0) k/uL Myelocytes # (Manual) (0) k/uL Sodium (137-145) mmol/L Potassium (3.5-5.1) mmol/L BUN (9-20) mg/dL Creatinine (0.66-1.25) mg/dL Glucose (74-99) mg/dL POC Glucose (mg/dL) 163 H 164 H 147 H (70-110) mg/dL Calcium (8.4-10.2) mg/dL Total Bilirubin (0.2-1.3) mg/dL AST (17-59) U/L ALT (4-49) U/L Alkaline Phosphatase (38-126) U/L Total Protein (6.3-8.2) g/dL Albumin (3.5-5.0) g/dL Triglycerides (0.00-149.00) mg/dL Cholesterol (0.00-200.00) mg/dL LDL Cholesterol, Calc (0.0-131.0) mg/dL VLDL Cholesterol, Calc (5.00-40.00) mg/dL HDL Cholesterol (40.00-60.00) mg/dL Lipase (23-300) U/L 02/17/22 Range/Units 06:11 WBC (3.8-10.6) k/uL RBC (4.30-5.90) m/uL Hgb (13.0-17.5) gm/dL Hct (39.0-53.0) % RDW (11.5-15.5) % Neutrophils # (Manual) (1.3-7.7) k/uL Lymphocytes # (Manual) (1.0-4.8) k/uL Monocytes # (Manual) (0-1.0) k/uL Metamyelocytes # (Man) (0) k/uL Myelocytes # (Manual) (0) k/uL Sodium (137-145) mmol/L Potassium (3.5-5.1) mmol/L BUN (9-20) mg/dL Creatinine (0.66-1.25) mg/dL Glucose (74-99) mg/dL POC Glucose (mg/dL) 143 H (70-110) mg/dL Calcium (8.4-10.2) mg/dL Total Bilirubin (0.2-1.3) mg/dL AST (17-59) U/L ALT (4-49) U/L Alkaline Phosphatase (38-126) U/L Total Protein (6.3-8.2) g/dL Albumin (3.5-5.0) g/dL Triglycerides (0.00-149.00) mg/dL Cholesterol (0.00-200.00) mg/dL LDL Cholesterol, Calc (0.0-131.0) mg/dL VLDL Cholesterol, Calc (5.00-40.00) mg/dL HDL Cholesterol (40.00-60.00) mg/dL Lipase (23-300) U/L Microbiology - Last 24 Hours (Table) 02/16/22 15:20 Anaerobic Culture - Preliminary Paracentesis Fluid 02/16/22 15:20 Body Fluid Culture - Preliminary Paracentesis Fluid 02/14/22 08:05 Blood Culture - Preliminary Blood No Growth after 48 hours 02/15/22 07:39 Blood Culture - Preliminary Blood No Growth after 24 hours 02/12/22 08:21 Blood Culture Gram Stain - Final Blood Blood Culture - Final Alpha Hemolytic Streptococcus 02/12/22 08:06 Blood Culture Gram Stain - Final Blood Blood Culture - Final Alpha Hemolytic Streptococcus Assessment and Plan Assessment: 1. End-stage renal disease on hemodialysis on a Monday schedule via AV fistula left arm 2. Sepsis with significantly elevated white count. Source not clear. Covid PCR negative. No abdominal symptoms. Chest x-ray does not show any infiltrates. Maintained on empiric antibiotics. Patient had dental work done about 2 weeks ago. Ultrasound shows possible acute cholecystitis 3. Lactic acidosis 4. CK D mineral bone disorder 5. Hypertension with CK D stage IV 6. Altered mentation 7. Elevated liver enzymes mostly secondary to hypotension. Ultrasound shows possible acute cholecystitis . Status post MRCP which showed mild extrahepatic biliary duct allocation with CBD at 8 mm Plan: Hemodialysis today Continue with empiric antibiotics
[2022-02-17 08:48] LABS: Anisocytosis Slight; HCT 28.1 % (39.0-53.0); MCH 30.3 pg (25.0-35.0); MCHC 32.1 g/dL (31.0-37.0); MCV 94.4 fL (80.0-100.0); Platelet Count 179 k/uL (150-450); RBC 2.98 m/uL (4.30-5.90); RDW 16.1 % (11.5-15.5); WBC 16.3 k/uL (3.8-10.6)
--- NOTE | 2022-02-17 08:54 | US ---
Ultrasound-guided paracentesis. DATE OF EXAM: 02/16/2022 CLINICAL HISTORY: Ascites The procedure was discussed with the patient. The risks, complications, benefits, and alternatives we re discussed and any questions were answered. Informed consent was obtained. The patient was placed s upine on the ultrasound table and prepped and draped in the usual sterile fashion. All elements of maximal barrier technique were utilized. Under ultrasound guidance, access into the right lower quadrant was obtained, via the paracentesis catheter system and direct ultrasound guidanc e. Approximately 4 liters of straw-colored fluid was removed. The patient was stable throughout the proc edure and remained stable upon discharge from Department of Radiology. IMPRESSION: Successful paracentesis under ultrasound guidance.
[2022-02-17 09:03] LABS: Albumin 2.6 g/dL (3.5-5.0); Magnesium 2.5 mg/dL (1.6-2.3); Total Bilirubin 6.6 mg/dL (0.2-1.3); Total Protein 5.5 g/dL (6.3-8.2)
[2022-02-17] MEDS: traMADol 50 MG TAB PO SCH ×4 (09:15→20:31)
[2022-02-17] MEDS: FAMOTIDINE 20 MG TAB PO SCH (09:21)
[2022-02-17] MEDS: HEPARIN SODIUM,PORCINE/PF 5,000 UNIT/0.5 ML SYRINGE SQ SCH ×2 (09:21→20:32)
[2022-02-17 09:26] LABS: C Reactive Protein 20.5 mg/dL (<1.0)
[2022-02-17 09:45] LABS: Erythrocyte Sedimentation Rate 119 mm/hr (0-15)
[2022-02-17 09:53] LABS: Band Neutrophils % 1 %; Eosinophils # (M) 0.16 k/uL (0-0.7); Lymphocytes # (M) 0.98 k/uL (1.0-4.8); Metamyelocytes # (M) 0.33 k/uL (0); Metamyelocytes % 2 %; Monocytes # (M) 0.65 k/uL (0-1.0); Myelocytes # (M) 0.49 k/uL (0); Myelocytes % 3 %; Neutrophils % (M) 84 %; Nucleated Red Blood Cells 0 /100 WBC (0-0); Total Cells Counted 200
[2022-02-17 09:56] LABS: Rouleaux Pres
[2022-02-17 11:52] LABS: Glucose,Whole Blood 112 mg/dL (70-110)
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
--- NOTE | 2022-02-17 12:18 | CA ---
Transthoracic Echo Report Name: Hermelindo Dewey Age: 61 Gender: M : 1960 Exam Date: 02/17/2022 08:37 Exam Location: [facility] Ht (in): 68 Wt (lb): 121 Ordering Physician: Lorie Gonzales Attending/Referring Phys: Christian BLAKE Rubber Extrusion Machine Operator Ingrid Marroquin, ABIGAIL Procedure CPT: Indications: Patient has septic emboli Cardiac Hx: Technical Quality: Contrast 1: Total Dose (mL): Contrast 2: Total Dose (mL): MEASUREMENTS (Male / Female) Normal Values 2D ECHO LV Diastolic Diameter PLAX 5.0 cm 4.2 - 5.9 / 3.9 - 5.3 cm LV Systolic Diameter PLAX 3.1 cm IVS Diastolic Thickness 0.7 cm 0.6 - 1.0 / 0.6 - 0.9 cm LVPW Diastolic Thickness 0.9 cm 0.6 - 1.0 / 0.6 - 0.9 cm LV Relative Wall Thickness 0.3 RV Internal Dim ED PLAX 4.2 cm LA Systolic Diameter LX 4.3 cm 3.0 - 4.0 / 2.7 - 3.8 cm LA Volume 72.5 cm??? 18 - 58 / 22 - 52 cm??? M-MODE Aortic Root Diameter MM 3.7 cm LA Systolic Diameter MM 3.9 cm LA Ao Ratio MM 1.1 MV E Point Septal Separation 0.2 cm AV Cusp Separation MM 1.5 cm DOPPLER MV Area PHT 4.5 cm??? Mitral E Point Velocity 76.9 cm/s Mitral A Point Velocity 71.3 cm/s Mitral E to A Ratio 1.1 MV Deceleration Time 166.9 ms MV E' Velocity 8.2 cm/s Mitral E to MV E' Ratio 9.3 TR Peak Velocity 320.9 cm/s TR Peak Gradient 46.0 mmHg Right Ventricular Systolic Press 46.1 mmHg FINDINGS Left Ventricle Left ventricular ejection fraction is estimated at 55 %. Left ventricular cavity size normal. Mildly increased left ventricular wall thickness. Right Ventricle Normal right ventricular size and function. Moderate pulmonary hypertension. Right ventricular systolic pressure estimated at 46 mm hg. Right Atrium Normal right atrial size. Left Atrium Mildly increased left atrial diameter. Moderately increased left atrial volume. Mildly increased left atrial area. Mitral Valve Structurally normal mitral valve. Mild mitral regurgitation. Aortic Valve Trileaflet aortic valve. Aortic valve sclerosis. Tricuspid Valve Structurally normal tricuspid valve. [id number] tricuspid regurgitation. Pulmonic Valve Structurally normal pulmonic valve. Pericardium Normal pericardium. Aorta Normal size aortic root and proximal ascending aorta. CONCLUSIONS Normal left ventricular dimension and systolic function Moderate pulmonary hypertension Moderate to severe tricuspid regurgitation Previewed by: Dr. Marcos Encinas MD (Electronically Signed) Final Date: 17 February 2022 12:17
--- NOTE | 2022-02-17 12:30 | P.PN ---
Subjective Progress Note Date: 02/17/22 Principal diagnosis: bacteremia Patient is a 61-year-old male with a past medical history significant for end-stage renal disease on hemodialysis through the left arm AV fistula patient presenting to the ER 2 days ago on 02/12/2022, patient was noticed to have elevated blood pressure at the dialysis center at the patient advised to go to the hospital patient be complaining of feeling weak since his teeth work done last week , patient was noticed to have streptococcal bacteremia also elevated liver enzymes concern for choledocholithiasis. On today's evaluation that is 02/17/2022, the patient continues to be afebrile, the patient is breathing comfortably on room air, the patient is slightly lethargic undergoing dialysis however denies any chest pain or cough no abdominal pain no diarrhea Objective - Vital Signs Vital signs: Vital Signs Temp 97.6 F 02/17/22 12:20 Pulse 49 L 02/17/22 12:20 Resp 18 02/17/22 12:20 BP 109/57 02/17/22 12:20 Pulse Ox 95 02/17/22 08:25 FiO2 Intake & Output 02/16/22 02/17/22 02/17/22 18:59 06:59 18:59 Intake Total 360 400 Output Total 0 1900 Balance 360 -1500 Weight 55 kg 55 kg Intake: Oral 360 Hemodialysis 400 Output: Urine 0 Hemodialysis 1900 Other: Voiding Method Diaper Diaper Diaper - Exam GENERAL DESCRIPTION: Middle-aged male lying in bed in no distress RESPIRATORY SYSTEM: Unlabored breathing , decreased breath sounds at bases HEART: S1 S2 regular rate and rhythm , ABDOMEN: Soft , no tenderness EXTREMITIES: No edema feet - Labs CBC & Chem 7: 02/17/22 07:38 02/17/22 07:38 Labs: Abnormal Lab Results - Last 24 Hours (Table) 02/16/22 02/16/22 02/16/22 Range/Units 06:35 16:46 20:23 WBC (3.8-10.6) k/uL RBC (4.30-5.90) m/uL Hgb (13.0-17.5) gm/dL Hct (39.0-53.0) % RDW (11.5-15.5) % Neutrophils # (Manual) (1.3-7.7) k/uL Lymphocytes # (Manual) (1.0-4.8) k/uL Metamyelocytes # (Man) (0) k/uL Myelocytes # (Manual) (0) k/uL ESR (0-15) mm/hr Sodium (137-145) mmol/L BUN (9-20) mg/dL Creatinine (0.66-1.25) mg/dL Glucose (74-99) mg/dL POC Glucose (mg/dL) 164 H 147 H (70-110) mg/dL Calcium (8.4-10.2) mg/dL Magnesium (1.6-2.3) mg/dL Total Bilirubin (0.2-1.3) mg/dL AST (17-59) U/L ALT (4-49) U/L Alkaline Phosphatase (38-126) U/L C-Reactive Protein (<1.0) mg/dL Total Protein (6.3-8.2) g/dL Albumin (3.5-5.0) g/dL Triglycerides 317.00 H (0.00-149.00) mg/dL Cholesterol 209.00 H (0.00-200.00) mg/dL LDL Cholesterol, Calc 133.1 H (0.0-131.0) mg/dL VLDL Cholesterol, Calc 63.40 H (5.00-40.00) mg/dL HDL Cholesterol 12.50 L (40.00-60.00) mg/dL Lipase (23-300) U/L 02/17/22 02/17/22 02/17/22 Range/Units 06:11 07:38 07:38 WBC 16.3 H (3.8-10.6) k/uL RBC 2.98 L (4.30-5.90) m/uL Hgb 9.0 L (13.0-17.5) gm/dL Hct 28.1 L (39.0-53.0) % RDW 16.1 H (11.5-15.5) % Neutrophils # (Manual) 13.80 H (1.3-7.7) k/uL Lymphocytes # (Manual) 0.98 L (1.0-4.8) k/uL Metamyelocytes # (Man) 0.33 H (0) k/uL Myelocytes # (Manual) 0.49 H (0) k/uL ESR 119 H (0-15) mm/hr Sodium 134 L (137-145) mmol/L BUN 45 H (9-20) mg/dL Creatinine 5.29 H (0.66-1.25) mg/dL Glucose 123 H (74-99) mg/dL POC Glucose (mg/dL) 143 H (70-110) mg/dL Calcium 8.0 L (8.4-10.2) mg/dL Magnesium 2.5 H (1.6-2.3) mg/dL Total Bilirubin 6.6 H (0.2-1.3) mg/dL AST 65 H (17-59) U/L ALT 150 H (4-49) U/L Alkaline Phosphatase 341 H (38-126) U/L C-Reactive Protein 20.5 H (<1.0) mg/dL Total Protein 5.5 L (6.3-8.2) g/dL Albumin 2.6 L (3.5-5.0) g/dL Triglycerides (0.00-149.00) mg/dL Cholesterol (0.00-200.00) mg/dL LDL Cholesterol, Calc (0.0-131.0) mg/dL VLDL Cholesterol, Calc (5.00-40.00) mg/dL HDL Cholesterol (40.00-60.00) mg/dL Lipase 1015 H (23-300) U/L 02/17/22 Range/Units 11:50 WBC (3.8-10.6) k/uL RBC (4.30-5.90) m/uL Hgb (13.0-17.5) gm/dL Hct (39.0-53.0) % RDW (11.5-15.5) % Neutrophils # (Manual) (1.3-7.7) k/uL Lymphocytes # (Manual) (1.0-4.8) k/uL Metamyelocytes # (Man) (0) k/uL Myelocytes # (Manual) (0) k/uL ESR (0-15) mm/hr Sodium (137-145) mmol/L BUN (9-20) mg/dL Creatinine (0.66-1.25) mg/dL Glucose (74-99) mg/dL POC Glucose (mg/dL) 112 H (70-110) mg/dL Calcium (8.4-10.2) mg/dL Magnesium (1.6-2.3) mg/dL Total Bilirubin (0.2-1.3) mg/dL AST (17-59) U/L ALT (4-49) U/L Alkaline Phosphatase (38-126) U/L C-Reactive Protein (<1.0) mg/dL Total Protein (6.3-8.2) g/dL Albumin (3.5-5.0) g/dL Triglycerides (0.00-149.00) mg/dL Cholesterol (0.00-200.00) mg/dL LDL Cholesterol, Calc (0.0-131.0) mg/dL VLDL Cholesterol, Calc (5.00-40.00) mg/dL HDL Cholesterol (40.00-60.00) mg/dL Lipase (23-300) U/L Microbiology - Last 24 Hours (Table) 02/14/22 08:05 Blood Culture - Preliminary Blood No Growth after 72 hours 02/15/22 07:39 Blood Culture - Preliminary Blood No Growth after 48 hours 02/16/22 15:20 Anaerobic Culture - Preliminary Paracentesis Fluid 02/16/22 15:20 Body Fluid Culture - Preliminary Paracentesis Fluid 02/12/22 08:21 Blood Culture Gram Stain - Final Blood Blood Culture - Final Alpha Hemolytic Streptococcus 02/12/22 08:06 Blood Culture Gram Stain - Final Blood Blood Culture - Final Alpha Hemolytic Streptococcus Assessment and Plan (1) Bacteremia Current Visit: Yes Status: Acute Code(s): R78.81 - BACTEREMIA SNOMED Code(s): 0178238 Plan: 1patient present to hospital with elevated blood pressure now with evidence of gram-positive bacteremia patient did have a recent tooth extraction and has been complaining of pain to the jaw area possible source of his bacteremia patient did have an abnormal ultrasound suspicious for cholecystitis And the patient did have elevated liver enzymes and a question of possible choledocholithiasis and cholangitis responsible for his bacteremia. 2blood cultures repeat has been negative so far 3patient did have abnormal MRI. Reported by radiologist as possible septic emboli, however the patient is clinically behaving as the patient cleared his bacteremia very quickly, echocardiogram did show some tricuspid regurgitation but no evidence of any vegetation possible TARIK per neurology, patient will continue with Unasyn and will monitor clinical course closely Time with Patient: Less than 30
[2022-02-17] MEDS: AMPICILLIN-SULBACTAM 3 GM in SODIUM CHLORIDE 0.9% 100 ML IVPB SCH (13:19)
[2022-02-17] MEDS: CHLORHEXIDINE GLUCONATE 15 ML CUP MUCOUS MEM SCH ×2 (13:22→20:54)
--- NOTE | 2022-02-17 13:32 | P.PN ---
Progress Note - Text Progress Note Date: 02/17/22 The patient is resting comfortably in his bed. He denies any significant abdominal pain. On exam vital signs are stable. Abdomen is soft. There is minimal right upper quadrant tenderness. There is no rebound or guarding. The patient has chronic cholecystitis with sludge in the gallbladder. Once his overall medical condition improves we can consider laparoscopic cholecystectomy.
--- NOTE | 2022-02-17 14:26 | P.PN ---
Subjective Progress Note Date: 02/17/22 Patient was 61-year-old male came in with complaints of tiredness weakness drowsiness. Patient has been constipated as well. Patient was given Tylenol 3 after he is a dental procedure patient pain is not bad at this time. Patient the blood pressure is extremely low was given IV fluids in ER patient is Monday and Monday hemodialysis schedule a patient doesn't have a short is a doesn't have any pulmonary edema on the chest x-ray because of which are hemanalysis be is being held at this time and nephrology's recording cautious hydration because of his hypotension. Patient's sodium is also low at 134. Patient appears to have toxicity from codeine and decreased excretion because of renal dysfunction. Patient appears bit encephalopathic 02/13/2022 Patient is evaluated today on medical floor. He is confused and drowsy. Nursing reports increased confusion. Blood pressure continues to run low in the high 90s. Remains afebrile. Sinus bradycardia on the heart monitor. He is receiving I V normal saline at 75 mls per hour. Plan per nephrology is to undergo hemodialysis today. Patient does have increased abdominal distention today, has positive bowel sounds there is no focal tenderness noted on exam. AST and ALT are increased. He did have lactic acidosis on admission as well. He does have consistent leukocytosis today 27.4. Blood cultures are currently pending at this time. Creatinine shows worsening renal function. He has not had any urine output per patient he does make some urine. He reports that bowels are moving. Will check a procalcitonin level and if elevated add empiric antibiotics and consult infectious disease. 02/14/2022 Patient evaluated on medical floor. He continues to be drowsy, he is arousable. Speech is slurred. He does have right facial droop today unclear if this is secondary to mild right facial swelling there is some tenderness to touch. No focal weakness noted however he has significant generalized weakness. Procalcitonin level came back yesterday at >100 and he was started on IV cefepime, blood cultures came back positive last night gram positive, streptococcus species. Infectious disease on consult and IV vancomycin has been added. Liver enzymes and bili remain elevated and abdominal ultrasound was done which shows gallbladder with sludge possible acute cholecystitis. Lipase is elevated at 5815. Patient is scheduled for MRCP to evaluated for choledocholelisthiasis. White count today 22.40, hgb 9.4, sodium 136, BUN 51.3, creatinine 5.7 today. Glucose in the 100s. 02/15/2022 Patient evaluated on step down unit. Negative brain CT. Neurology work up in place. He is more awake today alert x 1 to 2. He is undergoing hemodialysis to day. Blood cultures showing alpha hemolytic streptococcus. Patient had MRCP today, surgery following and feel elevated enzymes secondary to acute pancreatitis. 02/16/2022 Patient is evaluated today on step down unit. He is more awake and alert, currently alert x 2 to 3. He continues to be drowsy. Continues with right sided facial droop, no focal weakness noted. Patient had MRI completed today showing scattered bilateral punctuate white matter changes compatible with acute ischemic changes. Possibly from septic emboli. Possibly right mastoiditis. He does complain of some pain and numbness to the face adjacent to where the tooth was extracted on his right upper jaw. Dr. Alcaraz has been consulted for further evaluation of this. Blood cultures showing alpha hemolytic streptococcus. Infectious disease following cultures, on IV unasyn. Echocardiogram has been ordered to evaluate for endocarditis. Case discussed with general surgery, MRCP has been completed there is mild extrahepatic duct dilation with the CBD measuring up to 8mm with no definitive filling defect, stricture or obstructing mass lesion noted within the limitations of exam. There is mild gallbladder wall thickening suggestive of gallbladder sludge. Patient has hepatosplenomegaly with iron deposition. Moderate volume ascites. White count is 18.1 today, hemoglobin 9.4, neutrophils 14.8. Sodium 133 today, potassium 2.4. Creatinine 3.76. Bilirubin continues to elevate up to 6.3 he does appear more jaundice today. Liver enzymes are improving overall. Lipase 1394. He remains afebrile, heart rate 54, blood pressure 120/65, 97% on room air. 02/17/2022 Patient is evaluated today resting in bed more awake and alert. Denies pain. Status post paracentesis with 4L of fluid off. Has standing over for biweekly paracentesis. Echocardiogram has been completed showing normal LV systolic function with moderate pulmonary hypertension and also moderate to severe tricuspid regurgitation. Cardiology has been consulted for possible TARIK. General surgery has evaluated the patient today and recommending possible laproscopic cholecystectomy secondary to chronic cholecystitis with sludge pending improvement in his medical condition. IV unasyn can cause biliary stasis this was discussed with ID consultation and antibiotics have been changed to ceftriaxone and repeat labs tomorrow. He is being dialyzed today. Maxillary facial CT is pending at this time. Remains afebrile, heart rate 51, blood pressure 122/60, 95% room air. Labs today showing white count 16.3, hgb 9.0. Sodium 134, potassium 4.0, Although bilirubin is slightly up today at 6.6, AST/ALT and alk phos have improved. CRP 20.5. Lipase 1015. Lipid panel is significantly abnormal showing triglyceride level 317, total cholesterol 209, LDL 133, HDL 63. Review of Systems Constitutional: Reports fatigue, denied any fever. Cardio vascular: denied any chest pain, palpitations Gastrointestinal: Denies abdominal pain today, no nausea vomiting or diarrhea noted. Pulmonary: Denied any shortness of breath cough Neurologic: Continues with right facial droop. All inpatient medications were reviewed and appropriate changes in these medications as dictated in the interval history and assessment and plan. PHYSICAL EXAMINATION: GENERAL: The patient is drowsy sleepy oriented 2, not in any acute distress. Well developed, well nourished. Pale. HEENT: Pupils are round and equally reacting to light. EOMI. No scleral icterus. No conjunctival pallor. Normocephalic, atraumatic. No pharyngeal erythema. No thyromegaly. He has Molars on the right upper jaw have been extracted. No evidence of abscess at the gumline on basic exam. Malodorous breath. CARDIOVASCULAR: S1 and S2 present. No murmurs, rubs, or gallops. PULMONARY: Chest is clear to auscultation, no wheezing or crackles. ABDOMEN: Soft, notenderness noted, nondistended, normoactive bowel sounds. No palpable organomegaly. MUSCULOSKELETAL: No joint swelling or deformity. EXTREMITIES: No cyanosis, clubbing, or pedal edema. NEUROLOGICAL: Diffuse generalized weakness. drowsy. right facial droop continues. SKIN: No rashes. Jaundice. Assessment and plan Assessment -Acute ischemic stroke there are multiple small foci over bilateral hemisphere noted on exam, concern for emboli and also septic emboli. -Altered mental status secondary toxic metabolic encephalopathy secondary to recent opiate use, and sepsis, there is also concern for stroke and neurology consulted. -Streptococcus bacteremia -Sepsis present on admission patient has significant leukocytosis, had dental work done recently with evidence of right mastoiditis on MRI, source is possibly recent dental tooth extraction vs. gallbladder -Elevated transaminases with elevated bilirubin secondary to pancreatitis with elevated lipase there is also evidence of cholecystitis with sludge. -Lactic acidosis on admission, normalized -Volume overload patient missed hemodialysis secondary to hypotension and dizziness, [place] [id number] - improving -Chronic kidney disease stage IV because of hypertension, initially hypotensive, blood pressure has improved. -Recurrent ascites with frequent paracentesis s/p paracentesis on 02/16 with 4L of fluid off -Mild troponin elevation secondary to renal disease -hyponatremia -Gastroesophageal reflux disease DVT prophylaxis: Subcutaneous heparin GI prophylaxis: IV pepcid Plan Avoid use of opiates Antibiotics changed to ceftriaxone Patient will be dialyzed today Cardiology consultation for possible TARIK Pending oral surgeon recommendations and also Facial/maxillary CT Possible laproscopic cholecystectomy when medically stable Clear liquid diet Monitor labs closely and repeat in AM. Patient may need transfer to tertiary care center for further evaluation by GI services if further liver decompensation. The impression and plan of care has been dictated by Lorie Gonzalse, Nurse Practitioner as directed. Dr. Alisson MD I have performed a history and physical examination and medical decision making of this patient, discussed the same with the dictator, and agree with the dictators assessment and plan as written, documented as a scribe. Based on total visit time, I have performed more than 50% of this visit. Objective - Vital Signs Vital signs: Vital Signs Temp 98 F 02/17/22 08:25 Pulse 58 L 02/17/22 08:25 Resp 16 02/17/22 08:25 BP 123/64 02/17/22 08:25 Pulse Ox 95 02/17/22 08:25 FiO2 Intake & Output 02/16/22 02/17/22 02/17/22 18:59 06:59 18:59 Intake Total 360 Output Total 0 Balance 360 Weight 55 kg 55 kg Intake: Oral 360 Output: Urine 0 Other: Voiding Method Diaper Diaper Diaper - Labs CBC & Chem 7: 02/17/22 07:38 02/17/22 07:38 Labs: Abnormal Lab Results - Last 24 Hours (Table) 02/16/22 02/16/22 02/16/22 Range/Units 06:35 16:46 20:23 WBC (3.8-10.6) k/uL RBC (4.30-5.90) m/uL Hgb (13.0-17.5) gm/dL Hct (39.0-53.0) % RDW (11.5-15.5) % Neutrophils # (Manual) (1.3-7.7) k/uL Lymphocytes # (Manual) (1.0-4.8) k/uL Metamyelocytes # (Man) (0) k/uL Myelocytes # (Manual) (0) k/uL ESR (0-15) mm/hr Sodium (137-145) mmol/L BUN (9-20) mg/dL Creatinine (0.66-1.25) mg/dL Glucose (74-99) mg/dL POC Glucose (mg/dL) 164 H 147 H (70-110) mg/dL Calcium (8.4-10.2) mg/dL Magnesium (1.6-2.3) mg/dL Total Bilirubin (0.2-1.3) mg/dL AST (17-59) U/L ALT (4-49) U/L Alkaline Phosphatase (38-126) U/L C-Reactive Protein (<1.0) mg/dL Total Protein (6.3-8.2) g/dL Albumin (3.5-5.0) g/dL Triglycerides 317.00 H (0.00-149.00) mg/dL Cholesterol 209.00 H (0.00-200.00) mg/dL LDL Cholesterol, Calc 133.1 H (0.0-131.0) mg/dL VLDL Cholesterol, Calc 63.40 H (5.00-40.00) mg/dL HDL Cholesterol 12.50 L (40.00-60.00) mg/dL Lipase (23-300) U/L 02/17/22 02/17/22 02/17/22 Range/Units 06:11 07:38 07:38 WBC 16.3 H (3.8-10.6) k/uL RBC 2.98 L (4.30-5.90) m/uL Hgb 9.0 L (13.0-17.5) gm/dL Hct 28.1 L (39.0-53.0) % RDW 16.1 H (11.5-15.5) % Neutrophils # (Manual) 13.80 H (1.3-7.7) k/uL Lymphocytes # (Manual) 0.98 L (1.0-4.8) k/uL Metamyelocytes # (Man) 0.33 H (0) k/uL Myelocytes # (Manual) 0.49 H (0) k/uL ESR 119 H (0-15) mm/hr Sodium 134 L (137-145) mmol/L BUN 45 H (9-20) mg/dL Creatinine 5.29 H (0.66-1.25) mg/dL Glucose 123 H (74-99) mg/dL POC Glucose (mg/dL) 143 H (70-110) mg/dL Calcium 8.0 L (8.4-10.2) mg/dL Magnesium 2.5 H (1.6-2.3) mg/dL Total Bilirubin 6.6 H (0.2-1.3) mg/dL AST 65 H (17-59) U/L ALT 150 H (4-49) U/L Alkaline Phosphatase 341 H (38-126) U/L C-Reactive Protein 20.5 H (<1.0) mg/dL Total Protein 5.5 L (6.3-8.2) g/dL Albumin 2.6 L (3.5-5.0) g/dL Triglycerides (0.00-149.00) mg/dL Cholesterol (0.00-200.00) mg/dL LDL Cholesterol, Calc (0.0-131.0) mg/dL VLDL Cholesterol, Calc (5.00-40.00) mg/dL HDL Cholesterol (40.00-60.00) mg/dL Lipase 1015 H (23-300) U/L Microbiology - Last 24 Hours (Table) 02/14/22 08:05 Blood Culture - Preliminary Blood No Growth after 72 hours 02/15/22 07:39 Blood Culture - Preliminary Blood No Growth after 48 hours 02/16/22 15:20 Anaerobic Culture - Preliminary Paracentesis Fluid 02/16/22 15:20 Body Fluid Culture - Preliminary Paracentesis Fluid 02/12/22 08:21 Blood Culture Gram Stain - Final Blood Blood Culture - Final Alpha Hemolytic Streptococcus 02/12/22 08:06 Blood Culture Gram Stain - Final Blood Blood Culture - Final Alpha Hemolytic Streptococcus Assessment and Plan Time with Patient: Greater than 30
--- NOTE | 2022-02-17 14:39 | CT ---
EXAMINATION TYPE: CT facial bones wo con DATE OF EXAM: 02/17/2022 COMPARISON: None HISTORY: Tooth Infection CT DLP: 651.6 mGycm Automated exposure control for dose reduction was used. TECHNIQUE: CT scan of the sinuses is performed without contrast, axial images are obtained, coronal r eformatted images are also reviewed. FINDINGS: There is absence of the right maxillary first second and third molars. There is bone destruction in t his region with soft tissue air seen. Infection extends into the base of the right maxillary sinus wi th partial maxillary sinus opacification noted. There is adjacent soft tissue air and irregularity of the posterior wall of the maxillary sinus identified. No additional areas of bone destruction seen. The remaining paranasal sinuses are well-aerated. No evidence for drainable abscess. There is edema o f the right masseter muscle. Right tonsillar pillar is also edematous. IMPRESSION: 1. Bony destructive process at the posterior right maxilla at the location of the first, second and t hird molars which are absent. Bone destruction extends into the right maxillary sinus as discussed ab ove. There is soft tissue air seen. Findings are suspected to reflect osteomyelitis.
[2022-02-17 16:47] LABS: Glucose,Whole Blood 114 mg/dL (70-110)
--- NOTE | 2022-02-17 19:38 | CONS ---
CONSULTATION HISTORY OF PRESENT ILLNESS: The patient is a 61-year-old male, who was admitted on the for weakness, drowsiness, and complaints of tiredness. Blood cultures revealed a bacteremia. He recently had 2 teeth extracted on February 02, in the right maxillary posterior quadrant. I have been asked to rule out a dental source for the bacteremia. The patient is a little confused at this time and appears to be very tired. PAST MEDICAL HISTORY: Significant for end-stage renal disease, for which he is on dialysis. He has diabetes mellitus, GERD, hypertension, and hyperlipidemia with a history of pneumonia. PHYSICAL EXAMINATION: GENERAL: Reveals the patient to be somewhat confused. His vital signs are stable. He is alert and oriented x3. He is sitting in bed, in no apparent distress. HEAD AND NECK: Examination reveals mild soft tissue swelling of the right buccal space, which is mildly tender to palpation. Intraoral examination is limited secondary to cooperation. The patient appears to have trismus with a maximum incisal opening of approximately 30 to 35 mm. The right maxillary vestibule appears to be swollen and is tender to palpation. There is no obvious drainage from the previous tooth extractions, numbers 1 and 3. There is no pharyngeal swelling. There is no swelling of the tongue or floor of the mouth. LABORATORY DATA: The patient's labs are significant for a white count of 17, which is down from 25 upon admission. MEDICATIONS: He currently is on Unasyn, which was changed from vancomycin and cefepime. ASSESSMENT: 1. Confusion secondary to questionable etiology. 2. A right buccal space infection may be present. PLAN: Recommend continuation of IV Unasyn, heat to the area, and a CT scan of the area has been ordered and will be evaluated. I will continue to follow. MMODL / IJN: [id number] /
[2022-02-17 20:20] LABS: Glucose,Whole Blood 263 mg/dL (70-110)
[2022-02-18 06:25] LABS: Glucose,Whole Blood 162 mg/dL (70-110)
[2022-02-18] MEDS: VELPHORO PO SCH ×3 (06:26→17:53)
[2022-02-18] MEDS: carvediloL 12.5 MG TAB PO SCH ×2 (06:28→17:19)
[2022-02-18] MEDS: MIDODRINE 5 MG TAB PO SCH ×3 (06:28→17:20)
[2022-02-18] MEDS: INSULIN ASPART (NovoLOG) 100 UNIT/ML VIAL SQ SCH ×4 (06:28→20:30)
[2022-02-18 07:31] LABS: HCT 27.6 % (39.0-53.0); HGB 8.9 gm/dL (13.0-17.5); Hypochromasia Slight; MCH 30.7 pg (25.0-35.0); MCHC 32.4 g/dL (31.0-37.0); MCV 94.7 fL (80.0-100.0); Platelet Count 220 k/uL (150-450); RBC 2.91 m/uL (4.30-5.90); RDW 15.8 % (11.5-15.5); WBC 15.2 k/uL (3.8-10.6)
[2022-02-18 07:50] LABS: Albumin 2.6 g/dL (3.5-5.0); Potassium 3.8 mmol/L (3.5-5.1); Total Bilirubin 5.3 mg/dL (0.2-1.3); Total Protein 5.4 g/dL (6.3-8.2)
[2022-02-18] MEDS: CHLORHEXIDINE GLUCONATE 15 ML CUP MUCOUS MEM SCH ×2 (08:56→23:06)
[2022-02-18] MEDS: traMADol 50 MG TAB PO SCH ×4 (08:57→20:30)
[2022-02-18] MEDS: HEPARIN SODIUM,PORCINE/PF 5,000 UNIT/0.5 ML SYRINGE SQ SCH ×2 (08:57→20:34)
[2022-02-18] MEDS: FAMOTIDINE 20 MG TAB PO SCH (08:57)
[2022-02-18 09:03] LABS: Band Neutrophils % 3 %; Lymphocytes # (M) 1.22 k/uL (1.0-4.8); Metamyelocytes # (M) 0.61 k/uL (0); Metamyelocytes % 4 %; Monocytes # (M) 0.91 k/uL (0-1.0); Myelocytes # (M) 0.46 k/uL (0); Myelocytes % 3 %; Neutrophils % (M) 75 %; Nucleated Red Blood Cells 0 /100 WBC (0-0); Total Cells Counted 200
[2022-02-18 09:04] LABS: Rouleaux Present
--- NOTE | 2022-02-18 11:06 | P.PN ---
Progress Note - Text Progress Note Date: 02/18/22 The patient remains clinically unchanged. He denies any significant abdominal pain. His white count is decreased to 15,000. His liver function tests are still elevated. His bilirubin is a 0.0. On exam vital signs are stable. Abdomen is soft. There is no significant upper quadrant tenderness. History of biliary sludge and chronic cholecystitis. Patient will plan for outpatient laparoscopically cholecystectomy once he is medically stable.
[2022-02-18 11:57] LABS: Glucose,Whole Blood 232 mg/dL (70-110)
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
--- NOTE | 2022-02-18 15:36 | P.PN ---
Subjective Progress Note Date: 02/18/22 Follow-up for ESRD. Objective - Vital Signs Vital signs: Vital Signs Temp 97.8 F 02/18/22 12:00 Pulse 53 L 02/18/22 12:00 Resp 18 02/18/22 12:00 BP 110/53 02/18/22 12:00 Pulse Ox 97 02/18/22 12:00 FiO2 Intake & Output 02/17/22 02/18/22 02/18/22 18:59 06:59 18:59 Intake Total 580 180 Output Total 1900 Balance -1320 180 Weight 55 kg 55 kg Intake: Oral 180 180 Hemodialysis 400 Output: Hemodialysis 1900 Other: Voiding Method Diaper Diaper # Voids 0 # Bowel Movements 0 1 - Exam Acute distress S1-S2 heard lungs clear No edema - Labs CBC & Chem 7: 02/18/22 06:33 02/18/22 06:33 Labs: Abnormal Lab Results - Last 24 Hours (Table) 02/17/22 02/17/22 02/18/22 Range/Units 16:45 20:18 06:23 WBC (3.8-10.6) k/uL RBC (4.30-5.90) m/uL Hgb (13.0-17.5) gm/dL Hct (39.0-53.0) % RDW (11.5-15.5) % Neutrophils # (Manual) (1.3-7.7) k/uL Metamyelocytes # (Man) (0) k/uL Myelocytes # (Manual) (0) k/uL Sodium (137-145) mmol/L BUN (9-20) mg/dL Creatinine (0.66-1.25) mg/dL Glucose (74-99) mg/dL POC Glucose (mg/dL) 114 H 263 H 162 H (70-110) mg/dL Calcium (8.4-10.2) mg/dL Total Bilirubin (0.2-1.3) mg/dL ALT (4-49) U/L Alkaline Phosphatase (38-126) U/L Total Protein (6.3-8.2) g/dL Albumin (3.5-5.0) g/dL 02/18/22 02/18/22 02/18/22 Range/Units 06:33 06:33 11:55 WBC 15.2 H (3.8-10.6) k/uL RBC 2.91 L (4.30-5.90) m/uL Hgb 8.9 L (13.0-17.5) gm/dL Hct 27.6 L (39.0-53.0) % RDW 15.8 H (11.5-15.5) % Neutrophils # (Manual) 11.80 H (1.3-7.7) k/uL Metamyelocytes # (Man) 0.61 H (0) k/uL Myelocytes # (Manual) 0.46 H (0) k/uL Sodium 133 L (137-145) mmol/L BUN 34 H (9-20) mg/dL Creatinine 4.05 H (0.66-1.25) mg/dL Glucose 145 H (74-99) mg/dL POC Glucose (mg/dL) 232 H (70-110) mg/dL Calcium 8.0 L (8.4-10.2) mg/dL Total Bilirubin 5.3 H (0.2-1.3) mg/dL ALT 115 H (4-49) U/L Alkaline Phosphatase 334 H (38-126) U/L Total Protein 5.4 L (6.3-8.2) g/dL Albumin 2.6 L (3.5-5.0) g/dL Microbiology - Last 24 Hours (Table) 02/14/22 08:05 Blood Culture - Preliminary Blood No Growth after 96 hours 02/15/22 07:39 Blood Culture - Preliminary Blood No Growth after 72 hours 02/16/22 15:20 Body Fluid Culture - Preliminary Paracentesis Fluid Assessment and Plan Assessment: #1 sepsis secondary to bacteremia #2 ESRD on hemodialysis TTS #3 hypotension #4 altered mental status Plan: #1 hemodialysis tomorrow as per outpatient schedule #2 antibiotics as per primary team #3 midodrine for hemodynamic support.
[2022-02-18 16:52] LABS: Glucose,Whole Blood 168 mg/dL (70-110)
[2022-02-18] MEDS ORDERED: MIDODRINE 5 MG TAB PO SCH (17:30)
[2022-02-18 20:27] LABS: Glucose,Whole Blood 260 mg/dL (70-110)
--- NOTE | 2022-02-18 20:33 | P.PN ---
Subjective Progress Note Date: 02/18/22 Principal diagnosis: bacteremia Patient is a 61-year-old male with a past medical history significant for end-stage renal disease on hemodialysis through the left arm AV fistula patient presenting to the ER 2 days ago on 02/12/2022, patient was noticed to have elevated blood pressure at the dialysis center at the patient advised to go to the hospital patient be complaining of feeling weak since his teeth work done last week , patient was noticed to have streptococcal bacteremia also elevated liver enzymes concern for choledocholithiasis. On today's evaluation that is 02/18/2022, the patient remains to be afebrile, the patient is breathing comfortably on room air, the patient denies any chest pain shortness of breath or cough no nausea no vomiting no abdominal pain or diarrhea Objective - Vital Signs Vital signs: Vital Signs Temp 98.3 F 02/18/22 08:54 Pulse 53 L 02/18/22 08:54 Resp 18 02/18/22 08:54 BP 98/57 02/18/22 08:54 Pulse Ox 98 02/18/22 08:54 FiO2 Intake & Output 02/17/22 02/18/22 02/18/22 18:59 06:59 18:59 Intake Total 580 180 Output Total 1900 Balance -1320 180 Weight 55 kg 55 kg Intake: Oral 180 180 Hemodialysis 400 Output: Hemodialysis 1900 Other: Voiding Method Diaper Diaper # Bowel Movements 0 - Exam GENERAL DESCRIPTION: Middle-aged male lying in bed in no distress RESPIRATORY SYSTEM: Unlabored breathing , decreased breath sounds at bases HEART: S1 S2 regular rate and rhythm , ABDOMEN: Soft , no tenderness EXTREMITIES: No edema feet - Labs CBC & Chem 7: 02/18/22 06:33 02/18/22 06:33 Labs: Abnormal Lab Results - Last 24 Hours (Table) 02/17/22 02/17/22 02/18/22 Range/Units 16:45 20:18 06:23 WBC (3.8-10.6) k/uL RBC (4.30-5.90) m/uL Hgb (13.0-17.5) gm/dL Hct (39.0-53.0) % RDW (11.5-15.5) % Neutrophils # (Manual) (1.3-7.7) k/uL Metamyelocytes # (Man) (0) k/uL Myelocytes # (Manual) (0) k/uL Sodium (137-145) mmol/L BUN (9-20) mg/dL Creatinine (0.66-1.25) mg/dL Glucose (74-99) mg/dL POC Glucose (mg/dL) 114 H 263 H 162 H (70-110) mg/dL Calcium (8.4-10.2) mg/dL Total Bilirubin (0.2-1.3) mg/dL ALT (4-49) U/L Alkaline Phosphatase (38-126) U/L Total Protein (6.3-8.2) g/dL Albumin (3.5-5.0) g/dL 02/18/22 02/18/22 02/18/22 Range/Units 06:33 06:33 11:55 WBC 15.2 H (3.8-10.6) k/uL RBC 2.91 L (4.30-5.90) m/uL Hgb 8.9 L (13.0-17.5) gm/dL Hct 27.6 L (39.0-53.0) % RDW 15.8 H (11.5-15.5) % Neutrophils # (Manual) 11.80 H (1.3-7.7) k/uL Metamyelocytes # (Man) 0.61 H (0) k/uL Myelocytes # (Manual) 0.46 H (0) k/uL Sodium 133 L (137-145) mmol/L BUN 34 H (9-20) mg/dL Creatinine 4.05 H (0.66-1.25) mg/dL Glucose 145 H (74-99) mg/dL POC Glucose (mg/dL) 232 H (70-110) mg/dL Calcium 8.0 L (8.4-10.2) mg/dL Total Bilirubin 5.3 H (0.2-1.3) mg/dL ALT 115 H (4-49) U/L Alkaline Phosphatase 334 H (38-126) U/L Total Protein 5.4 L (6.3-8.2) g/dL Albumin 2.6 L (3.5-5.0) g/dL Microbiology - Last 24 Hours (Table) 02/14/22 08:05 Blood Culture - Preliminary Blood No Growth after 96 hours 02/15/22 07:39 Blood Culture - Preliminary Blood No Growth after 72 hours 02/16/22 15:20 Body Fluid Culture - Preliminary Paracentesis Fluid Assessment and Plan (1) Bacteremia Current Visit: Yes Status: Acute Code(s): R78.81 - BACTEREMIA SNOMED Code(s): 8044323 Plan: 1patient present to hospital with elevated blood pressure now with evidence of gram-positive bacteremia patient did have a recent tooth extraction and has been complaining of pain to the jaw area possible source of his bacteremia patient did have an abnormal ultrasound suspicious for cholecystitis And the patient did have elevated liver enzymes and a question of possible choledocholithiasis and cholangitis responsible for his bacteremia. Patient did have abnormal CT of the face concerning for possible osteomyelitis of the jaw 2blood cultures repeat has been negative so far 3patient did have abnormal MRI. Reported by radiologist as possible septic emboli, however the patient is clinically not behaving as the patient cleared his bacteremia very quickly, echocardiogram did show some tricuspid regurgitation but no evidence of any vegetation , cardiology has been consulted for TARIK 4- patient antibiotic was switch to Rocephin as there was concern for possible hepatitic congestion caused by Unasyn Time with Patient: Less than 30
--- NOTE | 2022-02-18 23:53 | P.CRDCN ---
History of Present Illness History of present illness: HISTORY OF PRESENTING ILLNESS This is a pleasant 61-year-old with past medical history significant for end- stage renal disease, hypertension. He presented 02/12 secondary to hypotension while at dialysis and admits he had been feeling somewhat weak and fatigued. Patient currently somewhat confused and some of history supplied by chart. Cardiology was consult if her TARIK secondary to concern of bacteremia as well as concern of altered mental status with possible cardiac source of emboli. REVIEW OF SYSTEMS At the time of my exam: Unable to obtain, patient noncompliant with review of systems PHYSICAL EXAMINATION Vital signs reviewed. CONSTITUTIONAL: No apparent distress, patient confused HEENT: Head is normocephalic. Pupils are equal, round. Sclerae anicteric. Mucous membranes of the mouth are moist. No JVD. No carotid bruit. CHEST EXAMINATION: Lungs are clear to auscultation. No chest wall tenderness is noted on palpation or with deep breathing. HEART EXAMINATION: Regular rate and rhythm. S1, S2 heard. No murmurs, gallops or rub. ABDOMEN: Soft, nontender. Positive bowel sounds. EXTREMITIES: 2+ peripheral pulses, no lower extremity edema and no calf tenderness. NEUROLOGIC EXAMINATION: Patient is awake, alert, not answering questions appropriately ASSESSMENT 1. Alpha hemolytic streptococcus bacteremia 2 of 2, bacteremia appears to clear it 2. MRI findings concerning for septic emboli 3. Altered mental status, concern of stroke 4. Moderate to severe tricuspid regurgitation by transthoracic echo 02/17 5. Altered months as status 6. Chronic kidney disease PLAN Patient with complex presentation with concern of altered mental status however additional bacteremia. Bacteremia appears to have improved however MRI concerning for septic emboli. If neurology or infectious disease desiring TARIK, possible performing TARIK 02/19 or 02/20. Further recommendations to follow. Past Medical History Past Medical History: Diabetes Mellitus, Dialysis, GERD/Reflux, Hyperlipidemia, Hypertension, Pneumonia, Renal Disease Additional Past Medical History / Comment(s): End stage renal disease currently on hemodialysis, diabetes mellitus, hypertension, acid reflux and recent hospitalization for right lung pneumonia and parapneumonic effusion. History of Any Multi-Drug Resistant Organisms: None Reported Past Surgical History: Hernia Repair Additional Past Surgical History / Comment(s): umb hernia repair/mesh, rt upper chest dialysis cath, multiple large volume paracentesis procedures Past Anesthesia/Blood Transfusion Reactions: No Reported Reaction Additional Past Anesthesia/Blood Transfusion Reaction / Comment(s): clausterphobia Past Psychological History: No Psychological Hx Reported Smoking Status: Former smoker Past Alcohol Use History: None Reported Additional Past Alcohol Use History / Comment(s): started smoking at age 16 and quit at age 38 smoked 1-2 ppd Past Drug Use History: None Reported - Past Family History Mother Family Medical History: No Reported History Additional Family Medical History / Comment(s): alive healthy age 82 Father Family Medical History: Diabetes Mellitus, Liver Disease, Renal Disease Additional Family Medical History / Comment(s): kidney/liver failure Medications and Allergies Home Medications Medication Instructions Recorded Confirmed Type amLODIPine [Norvasc] 10 mg PO DAILY #30 tab 09/21/17 02/12/22 Rx Albuterol Sulfate [Ventolin HFA] 1 - 2 puff INHALATION RT-Q6H PRN 07/17/20 02/12/22 History Loratadine 10 mg PO DAILY 07/17/20 02/12/22 History carvediloL [Coreg] 25 mg PO BID 07/17/20 02/12/22 History Ibuprofen [Motrin] 400 - 800 mg PO Q4H PRN 11/11/21 02/12/22 History cloNIDine HCL [Catapres] 0.1 mg PO TID 11/11/21 02/12/22 History hydrALAZINE HCL [Apresoline] 100 mg PO TID 11/11/21 02/12/22 History Acetaminophen-Codeine 300-30mg 1 - 2 tab PO Q4-6H PRN 02/03/22 02/12/22 History [Tylenol w/codeine #3] Velphoro 500mg Chewable Tab 1,500 mg PO TID-W/MEALS 02/12/22 02/12/22 History Velphoro 500mg Chewable Tab 500 mg PO BID PRN 02/12/22 02/12/22 History Allergies Allergy/AdvReac Type Severity Reaction Status Date / Time No Known Allergies Allergy Verified 02/12/22 12:13 Physical Exam Vitals: Vital Signs Temp Pulse Pulse Pulse Resp BP Pulse Ox 02/18/22 23:20 98.2 F 47 L 16 110/60 100 02/18/22 19:27 97.9 F 52 L 18 107/64 98 02/18/22 16:00 97.8 F 55 L 18 110/55 97 02/18/22 12:00 97.8 F 53 L 18 110/53 97 02/18/22 08:54 98.3 F 53 L 18 98/57 98 02/18/22 03:21 98.1 F 53 L 16 110/65 98 02/18/22 01:16 49 L Intake and Output 02/18/22 02/18/22 02/19/22 14:59 22:59 06:59 Intake Total 180 Balance 180 Intake: Oral 180 Other: Voiding Method Diaper Diaper # Voids 0 # Bowel Movements 1 Weight 55 kg Results 02/18/22 06:33 02/18/22 06:33 Cardiac Enzymes 02/18/22 Range/Units 06:33 AST 48 (17-59) U/L CBC 02/18/22 Range/Units 06:33 WBC 15.2 H (3.8-10.6) k/uL RBC 2.91 L (4.30-5.90) m/uL Hgb 8.9 L (13.0-17.5) gm/dL Hct 27.6 L (39.0-53.0) % Plt Count 220 (150-450) k/uL Comprehensive Metabolic Panel 02/18/22 Range/Units 06:33 Sodium 133 L (137-145) mmol/L Potassium 3.8 (3.5-5.1) mmol/L Chloride 99 (98-107) mmol/L Carbon Dioxide 24 (22-30) mmol/L BUN 34 H (9-20) mg/dL Creatinine 4.05 H (0.66-1.25) mg/dL Glucose 145 H (74-99) mg/dL Calcium 8.0 L (8.4-10.2) mg/dL AST 48 (17-59) U/L ALT 115 H (4-49) U/L Alkaline Phosphatase 334 H (38-126) U/L Total Protein 5.4 L (6.3-8.2) g/dL Albumin 2.6 L (3.5-5.0) g/dL Current Medications Generic Name Dose Route Start Last Admin Trade Name Freq PRN Reason Stop Dose Admin Albuterol Sulfate 2.5 mg 02/12/22 13:09 Albuterol Nebulized 2.5 Mg/3 Ml INHALATION RT-Q6H PRN Shortness Of Breath Carvedilol 25 mg 02/15/22 09:15 02/18/22 17:19 Carvedilol 12.5 Mg Tab PO 25 mg BID-W/MEALS BARBARA Administration Chlorhexidine Gluconate 15 ml 02/16/22 21:00 02/18/22 23:06 Chlorhexidine Gluconate 15 Ml Cup MUCOUS MEM 15 ml BID BARBARA Administration Clonidine 0.1 mg 02/15/22 09:02 Clonidine Hcl 0.1 Mg Tab PO TID PRN Hypertension Dextrose/Water 25 ml 02/12/22 18:02 Dextrose 50% Syringe 50 Ml IVP PER PROTOCOL PRN Hypoglycemia Protocol Dextrose/Water 50 ml 02/12/22 18:02 Dextrose 50% Syringe 50 Ml IVP PER PROTOCOL PRN Hypoglycemia Protocol Famotidine 20 mg 02/15/22 09:00 02/18/22 08:57 Famotidine 20 Mg Tab PO 20 mg DAILY BARBARA Administration Heparin Sodium (Porcine) 5,000 unit 02/12/22 21:00 02/18/22 20:34 Heparin Sodium,Porcine/Pf 5,000 Unit/0.5 Ml Syringe SQ 5,000 unit Q12HR BARBARA Administration Ceftriaxone Sodium 2 gm/ 50 mls @ 100 mls/hr 02/17/22 14:00 02/18/22 14:12 Sodium Chloride IVPB 100 mls/hr Q24H BARBARA Administration Protocol Insulin Aspart 0 unit 02/12/22 18:15 02/18/22 20:30 Insulin Aspart (Novolog) 100 Unit/Ml Vial SQ 6 unit ACHS BARBARA Administration Protocol Midodrine 5 mg 02/13/22 12:30 02/18/22 17:20 Midodrine 5 Mg Tab PO 5 mg AC-TID BARBARA Administration Non-Formulary Medication 500 mg 02/12/22 13:09 Velphoro 500mg Chewable Tab PO BID PRN WITH SNACKS Non-Formulary Medication 1,500 mg 02/12/22 17:30 02/18/22 17:53 Velphoro 500mg Chewable Tab PO Not Given TID-W/MEALS BARBARA Tramadol HCl 50 mg 02/12/22 14:30 02/18/22 20:30 Tramadol 50 Mg Tab PO 50 mg QID BARBARA Administration Intake and Output 02/18/22 02/18/22 02/19/22 14:59 22:59 06:59 Intake Total 180 Balance 180 Intake: Oral 180 Other: Voiding Method Diaper Diaper # Voids 0 # Bowel Movements 1 Weight 55 kg Patient Weight 02/19/22 06:59 Weight 55 kg 02/18/22 06:33 02/18/22 06:33
[2022-02-19 06:03] LABS: Glucose,Whole Blood 139 mg/dL (70-110)
[2022-02-19] MEDS: INSULIN ASPART (NovoLOG) 100 UNIT/ML VIAL SQ SCH ×4 (06:07→20:24)
[2022-02-19] MEDS: VELPHORO PO SCH ×3 (06:07→17:31)
[2022-02-19] MEDS: carvediloL 12.5 MG TAB PO SCH ×2 (06:24→17:19)
[2022-02-19] MEDS: MIDODRINE 5 MG TAB PO SCH ×2 (06:25→17:22)
[2022-02-19 07:45] LABS: HCT 28.9 % (39.0-53.0); HGB 9.5 gm/dL (13.0-17.5); Hypochromasia Slight; MCH 31.5 pg (25.0-35.0); MCHC 32.8 g/dL (31.0-37.0); MCV 95.9 fL (80.0-100.0); Mean Platelet Volume 10.5; Platelet Count 252 k/uL (150-450); RBC 3.01 m/uL (4.30-5.90); RDW 15.8 % (11.5-15.5); WBC 15.1 k/uL (3.8-10.6)
[2022-02-19 08:08] LABS: Albumin 2.5 g/dL (3.5-5.0); Calcium 8.1 mg/dL (8.4-10.2); Potassium 3.9 mmol/L (3.5-5.1); Total Bilirubin 4.2 mg/dL (0.2-1.3); Total Protein 5.4 g/dL (6.3-8.2)
[2022-02-19] MEDS: FAMOTIDINE 20 MG TAB PO SCH (09:18)
[2022-02-19] MEDS: HEPARIN SODIUM,PORCINE/PF 5,000 UNIT/0.5 ML SYRINGE SQ SCH ×2 (09:18→20:37)
[2022-02-19] MEDS: traMADol 50 MG TAB PO SCH ×4 (09:19→20:38)
[2022-02-19 10:03] LABS: C Reactive Protein 8.9 mg/dL (<1.0)
[2022-02-19 10:23] LABS: Band Neutrophils % 2 %; Eosinophils # (M) 0.45 k/uL (0-0.7); Lymphocytes # (M) 1.06 k/uL (1.0-4.8); Metamyelocytes # (M) 0.15 k/uL (0); Metamyelocytes % 1 %; Monocytes # (M) 1.06 k/uL (0-1.0); Myelocytes % 2 %; Neutrophils % (M) 79 %; Nucleated Red Blood Cells 0 /100 WBC (0-0); Total Cells Counted 200
[2022-02-19 10:26] LABS: Poikilocytosis (M) Present
[2022-02-19 10:33] LABS: Erythrocyte Sedimentation Rate 122 mm/hr (0-15)
--- NOTE | 2022-02-19 11:47 | P.PN ---
Subjective Progress Note Date: 02/19/22 HISTORY OF PRESENTING ILLNESS This is a pleasant 61-year-old with past medical history significant for end- stage renal disease, hypertension. He presented 02/12 secondary to hypotension while at dialysis and admits he had been feeling somewhat weak and fatigued. Patient currently somewhat confused and some of history supplied by chart. Cardiology was consult if her TARIK secondary to concern of bacteremia as well as concern of altered mental status with possible cardiac source of emboli. 02/19 Patient is followed for bacteremia and confirmed with Dr. Berumen that TARIK will be necessary. We will plan this on Monday. PHYSICAL EXAMINATION Vital signs reviewed. CONSTITUTIONAL: No apparent distress, patient confused HEENT: Head is normocephalic. Pupils are equal, round. Sclerae anicteric. Mucous membranes of the mouth are moist. No JVD. No carotid bruit. CHEST EXAMINATION: Lungs are clear to auscultation. No chest wall tenderness is noted on palpation or with deep breathing. HEART EXAMINATION: Regular rate and rhythm. S1, S2 heard. No murmurs, gallops or rub. ABDOMEN: Soft, nontender. Positive bowel sounds. EXTREMITIES: 2+ peripheral pulses, no lower extremity edema and no calf tenderness. NEUROLOGIC EXAMINATION: Patient is awake, alert, not answering questions appropriately ASSESSMENT 1. Alpha hemolytic streptococcus bacteremia 2 of 2, bacteremia appears to clear it 2. MRI findings concerning for septic emboli 3. Altered mental status, concern of stroke 4. Moderate to severe tricuspid regurgitation by transthoracic echo 02/17 5. Altered months as status 6. Chronic kidney disease PLAN Patient with complex presentation with concern of altered mental status however additional bacteremia. Bacteremia appears to have improved however MRI concerning for septic emboli. Schedule patient for TARIK on Monday Nurse practitioner note has been reviewed, I agree with the documented findings and plan of care. Patient was seen and examined. Objective - Vital Signs Vital signs: Vital Signs Temp 98.2 F 02/19/22 09:17 Pulse 52 L 02/19/22 09:17 Resp 16 02/19/22 09:17 BP 113/62 02/19/22 09:17 Pulse Ox 98 02/19/22 09:17 FiO2 Intake & Output 02/18/22 02/19/22 02/19/22 18:59 06:59 18:59 Intake Total 180 Balance 180 Weight 55 kg 54.5 kg Intake: Oral 180 Other: Voiding Method Diaper Diaper Diaper # Voids 0 # Bowel Movements 1 - Labs CBC & Chem 7: 02/19/22 07:26 02/19/22 07:26 Labs: Abnormal Lab Results - Last 24 Hours (Table) 02/18/22 02/18/22 02/18/22 Range/Units 11:55 16:51 20:25 WBC (3.8-10.6) k/uL RBC (4.30-5.90) m/uL Hgb (13.0-17.5) gm/dL Hct (39.0-53.0) % RDW (11.5-15.5) % Sodium (137-145) mmol/L Carbon Dioxide (22-30) mmol/L BUN (9-20) mg/dL Creatinine (0.66-1.25) mg/dL Glucose (74-99) mg/dL POC Glucose (mg/dL) 232 H 168 H 260 H (70-110) mg/dL Calcium (8.4-10.2) mg/dL Total Bilirubin (0.2-1.3) mg/dL ALT (4-49) U/L Alkaline Phosphatase (38-126) U/L Total Protein (6.3-8.2) g/dL Albumin (3.5-5.0) g/dL 02/19/22 02/19/22 02/19/22 Range/Units 06:01 07:26 07:26 WBC 15.1 H (3.8-10.6) k/uL RBC 3.01 L (4.30-5.90) m/uL Hgb 9.5 L (13.0-17.5) gm/dL Hct 28.9 L (39.0-53.0) % RDW 15.8 H (11.5-15.5) % Sodium 133 L (137-145) mmol/L Carbon Dioxide 21 L (22-30) mmol/L BUN 47 H (9-20) mg/dL Creatinine 5.39 H (0.66-1.25) mg/dL Glucose 119 H (74-99) mg/dL POC Glucose (mg/dL) 139 H (70-110) mg/dL Calcium 8.1 L (8.4-10.2) mg/dL Total Bilirubin 4.2 H (0.2-1.3) mg/dL ALT 88 H (4-49) U/L Alkaline Phosphatase 321 H (38-126) U/L Total Protein 5.4 L (6.3-8.2) g/dL Albumin 2.5 L (3.5-5.0) g/dL Microbiology - Last 24 Hours (Table) 02/14/22 08:05 Blood Culture - Preliminary Blood No Growth after 96 hours 02/15/22 07:39 Blood Culture - Preliminary Blood No Growth after 72 hours 02/16/22 15:20 Body Fluid Culture - Preliminary Paracentesis Fluid
[2022-02-19 11:51] LABS: Glucose,Whole Blood 133 mg/dL (70-110)
--- NOTE | 2022-02-19 12:14 | P.PN ---
Progress Note - Text Progress Note Date: 02/19/22 Patient remains stable. He denies any significant abdominal pain. On exam vital signs appear stable. Abdomen soft. There is no significant tenderness or right or left upper quadrants. There is no rebound or guarding. No peritoneal signs. Patient's MRCP did not show any evidence of biliary duct obstruction. Patient is known to have sludge in the gallbladder. We will plan for outpatient laparoscopically cholecystectomy when the patient is medically stable.
[2022-02-19] MEDS: CHLORHEXIDINE GLUCONATE 15 ML CUP MUCOUS MEM SCH ×2 (12:22→20:38)
--- NOTE | 2022-02-19 13:35 | P.PN ---
Subjective Progress Note Date: 02/19/22 Principal diagnosis: bacteremia Patient is a 61-year-old male with a past medical history significant for end-stage renal disease on hemodialysis through the left arm AV fistula patient presenting to the ER 2 days ago on 02/12/2022, patient was noticed to have elevated blood pressure at the dialysis center at the patient advised to go to the hospital patient be complaining of feeling weak since his teeth work done last week , patient was noticed to have streptococcal bacteremia also elevated liver enzymes concern for choledocholithiasis. On today's evaluation that is 02/19/2022, the patient continues to be afebrile, the patient is breathing comfortably on room air, the patient denies any chest pain shortness of breath or cough, the patient denies having any nausea no vomiting no abdominal pain or diarrhea, no new symptoms Objective - Vital Signs Vital signs: Vital Signs Temp 98.2 F 02/19/22 09:17 Pulse 52 L 02/19/22 09:17 Resp 16 02/19/22 09:17 BP 113/62 02/19/22 09:17 Pulse Ox 98 02/19/22 09:17 FiO2 Intake & Output 02/18/22 02/19/22 02/19/22 18:59 06:59 18:59 Intake Total 180 Balance 180 Weight 55 kg 54.5 kg Intake: Oral 180 Other: Voiding Method Diaper Diaper Diaper # Voids 0 # Bowel Movements 1 - Exam GENERAL DESCRIPTION: Middle-aged male lying in bed in no distress RESPIRATORY SYSTEM: Unlabored breathing , decreased breath sounds at bases HEART: S1 S2 regular rate and rhythm , ABDOMEN: Soft , no tenderness EXTREMITIES: No edema feet - Labs CBC & Chem 7: 02/19/22 07:26 02/19/22 07:26 Labs: Abnormal Lab Results - Last 24 Hours (Table) 02/18/22 02/18/22 02/19/22 Range/Units 16:51 20:25 06:01 WBC (3.8-10.6) k/uL RBC (4.30-5.90) m/uL Hgb (13.0-17.5) gm/dL Hct (39.0-53.0) % RDW (11.5-15.5) % Neutrophils # (Manual) (1.3-7.7) k/uL Monocytes # (Manual) (0-1.0) k/uL Metamyelocytes # (Man) (0) k/uL Myelocytes # (Manual) (0) k/uL ESR (0-15) mm/hr Sodium (137-145) mmol/L Carbon Dioxide (22-30) mmol/L BUN (9-20) mg/dL Creatinine (0.66-1.25) mg/dL Glucose (74-99) mg/dL POC Glucose (mg/dL) 168 H 260 H 139 H (70-110) mg/dL Calcium (8.4-10.2) mg/dL Total Bilirubin (0.2-1.3) mg/dL ALT (4-49) U/L Alkaline Phosphatase (38-126) U/L C-Reactive Protein (<1.0) mg/dL Total Protein (6.3-8.2) g/dL Albumin (3.5-5.0) g/dL 02/19/22 02/19/22 02/19/22 Range/Units 07:26 07:26 11:50 WBC 15.1 H (3.8-10.6) k/uL RBC 3.01 L (4.30-5.90) m/uL Hgb 9.5 L (13.0-17.5) gm/dL Hct 28.9 L (39.0-53.0) % RDW 15.8 H (11.5-15.5) % Neutrophils # (Manual) 12.20 H (1.3-7.7) k/uL Monocytes # (Manual) 1.06 H (0-1.0) k/uL Metamyelocytes # (Man) 0.15 H (0) k/uL Myelocytes # (Manual) 0.30 H (0) k/uL ESR 122 H (0-15) mm/hr Sodium 133 L (137-145) mmol/L Carbon Dioxide 21 L (22-30) mmol/L BUN 47 H (9-20) mg/dL Creatinine 5.39 H (0.66-1.25) mg/dL Glucose 119 H (74-99) mg/dL POC Glucose (mg/dL) 133 H (70-110) mg/dL Calcium 8.1 L (8.4-10.2) mg/dL Total Bilirubin 4.2 H (0.2-1.3) mg/dL ALT 88 H (4-49) U/L Alkaline Phosphatase 321 H (38-126) U/L C-Reactive Protein 8.9 H (<1.0) mg/dL Total Protein 5.4 L (6.3-8.2) g/dL Albumin 2.5 L (3.5-5.0) g/dL Microbiology - Last 24 Hours (Table) 02/16/22 15:20 Gram Stain - Preliminary Paracentesis Fluid Body Fluid Culture - Preliminary 02/14/22 08:05 Blood Culture - Preliminary Blood No Growth after 120 hours 02/15/22 07:39 Blood Culture - Preliminary Blood No Growth after 96 hours Assessment and Plan (1) Bacteremia Current Visit: Yes Status: Acute Code(s): R78.81 - BACTEREMIA SNOMED Code(s): 1968173 Plan: 1patient present to hospital with elevated blood pressure now with evidence of gram-positive bacteremia patient did have a recent tooth extraction and has been complaining of pain to the jaw area possible source of his bacteremia patient did have an abnormal ultrasound suspicious for cholecystitis And the patient did have elevated liver enzymes and a question of possible choledocholithiasis and cholangitis however the patient subsequently did have MRCP did not show any evidence of choledocholithiasis. Patient did have abnormal CT of the face concerning for possible osteomyelitis of the jaw 2blood cultures repeat has been negative so far 3patient did have abnormal MRI. Reported by radiologist as possible septic emboli, however the patient is clinically not behaving as the patient cleared his bacteremia very quickly, echocardiogram did show some tricuspid regurgitation but no evidence of any vegetation , cardiology has been consulted and plan is for TARIK on 02/22/2022 4- patient white count is trending down continue with the Rocephin will add Flagyl to cover for the polymicrobial oral denise and continue supportive care Time with Patient: Less than 30
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
--- NOTE | 2022-02-19 15:15 | P.PN ---
Subjective Progress Note Date: 02/19/22 Follow-up for ESRD. Objective - Vital Signs Vital signs: Vital Signs Temp 97.4 F L 02/19/22 13:00 Pulse 54 L 02/19/22 13:00 Resp 16 02/19/22 13:00 BP 133/65 02/19/22 13:00 Pulse Ox 96 02/19/22 13:00 FiO2 Intake & Output 02/18/22 02/19/22 02/19/22 18:59 06:59 18:59 Intake Total 180 Output Total 0 Balance 180 0 Weight 55 kg 54.5 kg Intake: Oral 180 Output: Urine 0 Other: Voiding Method Diaper Diaper Diaper # Voids 0 # Bowel Movements 1 - Exam Acute distress S1-S2 heard lungs clear No edema - Labs CBC & Chem 7: 02/19/22 07:26 02/19/22 07:26 Labs: Abnormal Lab Results - Last 24 Hours (Table) 02/18/22 02/18/22 02/19/22 Range/Units 16:51 20:25 06:01 WBC (3.8-10.6) k/uL RBC (4.30-5.90) m/uL Hgb (13.0-17.5) gm/dL Hct (39.0-53.0) % RDW (11.5-15.5) % Neutrophils # (Manual) (1.3-7.7) k/uL Monocytes # (Manual) (0-1.0) k/uL Metamyelocytes # (Man) (0) k/uL Myelocytes # (Manual) (0) k/uL ESR (0-15) mm/hr Sodium (137-145) mmol/L Carbon Dioxide (22-30) mmol/L BUN (9-20) mg/dL Creatinine (0.66-1.25) mg/dL Glucose (74-99) mg/dL POC Glucose (mg/dL) 168 H 260 H 139 H (70-110) mg/dL Calcium (8.4-10.2) mg/dL Total Bilirubin (0.2-1.3) mg/dL ALT (4-49) U/L Alkaline Phosphatase (38-126) U/L C-Reactive Protein (<1.0) mg/dL Total Protein (6.3-8.2) g/dL Albumin (3.5-5.0) g/dL 02/19/22 02/19/22 02/19/22 Range/Units 07:26 07:26 11:50 WBC 15.1 H (3.8-10.6) k/uL RBC 3.01 L (4.30-5.90) m/uL Hgb 9.5 L (13.0-17.5) gm/dL Hct 28.9 L (39.0-53.0) % RDW 15.8 H (11.5-15.5) % Neutrophils # (Manual) 12.20 H (1.3-7.7) k/uL Monocytes # (Manual) 1.06 H (0-1.0) k/uL Metamyelocytes # (Man) 0.15 H (0) k/uL Myelocytes # (Manual) 0.30 H (0) k/uL ESR 122 H (0-15) mm/hr Sodium 133 L (137-145) mmol/L Carbon Dioxide 21 L (22-30) mmol/L BUN 47 H (9-20) mg/dL Creatinine 5.39 H (0.66-1.25) mg/dL Glucose 119 H (74-99) mg/dL POC Glucose (mg/dL) 133 H (70-110) mg/dL Calcium 8.1 L (8.4-10.2) mg/dL Total Bilirubin 4.2 H (0.2-1.3) mg/dL ALT 88 H (4-49) U/L Alkaline Phosphatase 321 H (38-126) U/L C-Reactive Protein 8.9 H (<1.0) mg/dL Total Protein 5.4 L (6.3-8.2) g/dL Albumin 2.5 L (3.5-5.0) g/dL Microbiology - Last 24 Hours (Table) 02/16/22 15:20 Anaerobic Culture - Preliminary Paracentesis Fluid 02/16/22 15:20 Gram Stain - Preliminary Paracentesis Fluid Body Fluid Culture - Preliminary 02/14/22 08:05 Blood Culture - Preliminary Blood No Growth after 120 hours 02/15/22 07:39 Blood Culture - Preliminary Blood No Growth after 96 hours Assessment and Plan Assessment: #1 sepsis secondary to bacteremia, source unclear #2 ESRD on hemodialysis TTS #3 hypotension #4 altered mental status Plan: #1 hemodialysis today as per outpatient schedule #2 antibiotics as per infectious disease. #3 midodrine for hemodynamic support. #4 pending TARIK
[2022-02-19 16:30] LABS: Glucose,Whole Blood 104 mg/dL (70-110)
[2022-02-19] MEDS: metroNIDAZOLE 500 MG TAB PO SCH ×2 (17:19→20:39)
--- NOTE | 2022-02-19 19:11 | PN ---
PROGRESS NOTE DATE OF SERVICE: 02/19/2022 The patient is somewhat confused. He is in no acute distress. He is resting comfortably in bed. He is somewhat responsive and cohesive. His vital signs are stable. He is afebrile. Physical examination reveals the patient to have minimal swelling to the right face. However, there is mild tenderness to palpation. The patient does exhibit trismus with a maximal incisal opening of approximately 30 mm. The exam is limited secondary to his cooperation. There does appear to be some swelling or cellulitis in the right posterior maxilla in the vestibule. No drainage is noted. There is no pharyngeal swelling. No sublingual swelling. A CT of the face reveals a potential lytic process in the right posterior maxilla, which may indicate osteomyelitis. ASSESSMENT: Right posterior maxillary lytic process with questionable osteomyelitis. PLAN: The patient is currently on IV Unasyn. With discussion with Dr. Maddox, I would recommend continuing the IV antibiotics and debridement of the right posterior maxilla as needed. The patient currently does not seem stable enough to undergo a general anesthetic. We will continue to monitor and debride as necessary. MMODL / IJN: [id number] /
[2022-02-19 20:17] LABS: Glucose,Whole Blood 143 mg/dL (70-110)
[2022-02-20 06:32] LABS: Glucose,Whole Blood 226 mg/dL (70-110)
[2022-02-20 06:53] LABS: Anisocytosis Slight; HCT 29.5 % (39.0-53.0); HGB 9.4 gm/dL (13.0-17.5); Hypochromasia Slight; MCH 30.5 pg (25.0-35.0); MCHC 31.9 g/dL (31.0-37.0); MCV 95.6 fL (80.0-100.0); Mean Platelet Volume 9.9; Platelet Count 300 k/uL (150-450); RBC 3.08 m/uL (4.30-5.90); RDW 16.2 % (11.5-15.5)
[2022-02-20 06:57] LABS: Albumin 2.5 g/dL (3.5-5.0); Calcium 8.1 mg/dL (8.4-10.2); Potassium 4.3 mmol/L (3.5-5.1); Total Bilirubin 3.4 mg/dL (0.2-1.3); Total Protein 5.3 g/dL (6.3-8.2)
[2022-02-20] MEDS: carvediloL 12.5 MG TAB PO SCH ×2 (07:01→17:14)
[2022-02-20] MEDS: INSULIN ASPART (NovoLOG) 100 UNIT/ML VIAL SQ SCH ×5 (07:01→20:40)
[2022-02-20] MEDS: MIDODRINE 5 MG TAB PO SCH ×3 (07:02→17:14)
[2022-02-20] MEDS: VELPHORO PO SCH ×3 (07:09→17:10)
[2022-02-20 07:37] LABS: Band Neutrophils % 4 %; Eosinophils # (M) 0.42 k/uL (0-0.7); Lymphocytes # (M) 0.84 k/uL (1.0-4.8); Metamyelocytes % 5 %; Monocytes # (M) 0.56 k/uL (0-1.0); Myelocytes # (M) 0.28 k/uL (0); Myelocytes % 2 %; Neutrophils % (M) 76 %; Nucleated Red Blood Cells 0 /100 WBC (0-0); Polychromasia Present; Total Cells Counted 100
[2022-02-20] MEDS: FAMOTIDINE 20 MG TAB PO SCH (09:16)
[2022-02-20] MEDS: metroNIDAZOLE 500 MG TAB PO SCH ×3 (09:16→20:46)
[2022-02-20] MEDS: CHLORHEXIDINE GLUCONATE 15 ML CUP MUCOUS MEM SCH ×2 (09:16→20:46)
[2022-02-20] MEDS: traMADol 50 MG TAB PO SCH ×4 (09:16→22:23)
[2022-02-20] MEDS: HEPARIN SODIUM,PORCINE/PF 5,000 UNIT/0.5 ML SYRINGE SQ SCH ×2 (09:17→20:46)
--- NOTE | 2022-02-20 09:52 | P.PN ---
Subjective Progress Note Date: 02/20/22 Principal diagnosis: This is a 61-year-old male with ESRD on dialysis Monday as well as a left arm AV fistula. Admitted with bacteremia, post tooth extraction. Also has gallstone His repeat cultures have been negative . He was dialyzed yesterday and is being fairly well. He remains somewhat weak but denies any fever chills cough shortness of breath nausea vomiting. Appetite somewhat poor. Objective - Vital Signs Vital signs: Vital Signs Temp 98.5 F 02/20/22 09:15 Pulse 57 L 02/20/22 09:15 Resp 18 02/20/22 09:15 BP 105/65 02/20/22 09:15 Pulse Ox 99 02/20/22 09:15 FiO2 Intake & Output 02/19/22 02/20/22 02/20/22 18:59 06:59 18:59 Intake Total 100 Output Total 0 0 Balance 0 100 Weight 75.5 kg Intake: Intake, IV Titration 100 Amount cefTRIAXone 2 gm In 100 Sodium Chloride 0.9% 50 ml @ 100 mls/hr IVPB Q24H [facility] Rx#:[id number] Oral 0 Output: Urine 0 0 Other: Voiding Method Diaper Diaper On examination generalized weakness HEENT exam no JVP neck is supple no facial asymmetry Lungs are clear to auscultation good air entry bilaterally Heart sounds unremarkable Abdomen soft nontender. Access looks clear Extremity examination no edema Neurologically awake alert but profoundly weak - Labs CBC & Chem 7: 02/20/22 05:56 02/20/22 05:56 Labs: Abnormal Lab Results - Last 24 Hours (Table) 02/19/22 02/19/22 02/19/22 Range/Units 07:26 07:26 11:50 WBC (3.8-10.6) k/uL RBC (4.30-5.90) m/uL Hgb (13.0-17.5) gm/dL Hct (39.0-53.0) % RDW (11.5-15.5) % Neutrophils # (Manual) 12.20 H (1.3-7.7) k/uL Lymphocytes # (Manual) (1.0-4.8) k/uL Monocytes # (Manual) 1.06 H (0-1.0) k/uL Metamyelocytes # (Man) 0.15 H (0) k/uL Myelocytes # (Manual) 0.30 H (0) k/uL ESR 122 H (0-15) mm/hr Sodium (137-145) mmol/L BUN (9-20) mg/dL Creatinine (0.66-1.25) mg/dL Glucose (74-99) mg/dL POC Glucose (mg/dL) 133 H (70-110) mg/dL Calcium (8.4-10.2) mg/dL Total Bilirubin (0.2-1.3) mg/dL ALT (4-49) U/L Alkaline Phosphatase (38-126) U/L C-Reactive Protein 8.9 H (<1.0) mg/dL Total Protein (6.3-8.2) g/dL Albumin (3.5-5.0) g/dL 02/19/22 02/20/22 02/20/22 Range/Units 20:15 05:56 05:56 WBC 14.0 H (3.8-10.6) k/uL RBC 3.08 L (4.30-5.90) m/uL Hgb 9.4 L (13.0-17.5) gm/dL Hct 29.5 L (39.0-53.0) % RDW 16.2 H (11.5-15.5) % Neutrophils # (Manual) 11.20 H (1.3-7.7) k/uL Lymphocytes # (Manual) 0.84 L (1.0-4.8) k/uL Monocytes # (Manual) (0-1.0) k/uL Metamyelocytes # (Man) 0.70 H (0) k/uL Myelocytes # (Manual) 0.28 H (0) k/uL ESR (0-15) mm/hr Sodium 133 L (137-145) mmol/L BUN 35 H (9-20) mg/dL Creatinine 4.17 H (0.66-1.25) mg/dL Glucose 206 H (74-99) mg/dL POC Glucose (mg/dL) 143 H (70-110) mg/dL Calcium 8.1 L (8.4-10.2) mg/dL Total Bilirubin 3.4 H (0.2-1.3) mg/dL ALT 70 H (4-49) U/L Alkaline Phosphatase 326 H (38-126) U/L C-Reactive Protein (<1.0) mg/dL Total Protein 5.3 L (6.3-8.2) g/dL Albumin 2.5 L (3.5-5.0) g/dL 02/20/22 Range/Units 06:31 WBC (3.8-10.6) k/uL RBC (4.30-5.90) m/uL Hgb (13.0-17.5) gm/dL Hct (39.0-53.0) % RDW (11.5-15.5) % Neutrophils # (Manual) (1.3-7.7) k/uL Lymphocytes # (Manual) (1.0-4.8) k/uL Monocytes # (Manual) (0-1.0) k/uL Metamyelocytes # (Man) (0) k/uL Myelocytes # (Manual) (0) k/uL ESR (0-15) mm/hr Sodium (137-145) mmol/L BUN (9-20) mg/dL Creatinine (0.66-1.25) mg/dL Glucose (74-99) mg/dL POC Glucose (mg/dL) 226 H (70-110) mg/dL Calcium (8.4-10.2) mg/dL Total Bilirubin (0.2-1.3) mg/dL ALT (4-49) U/L Alkaline Phosphatase (38-126) U/L C-Reactive Protein (<1.0) mg/dL Total Protein (6.3-8.2) g/dL Albumin (3.5-5.0) g/dL Microbiology - Last 24 Hours (Table) 02/15/22 07:39 Blood Culture - Preliminary Blood No Growth after 120 hours 02/16/22 15:20 Gram Stain - Preliminary Paracentesis Fluid Body Fluid Culture - Preliminary 02/16/22 15:20 Anaerobic Culture - Preliminary Paracentesis Fluid 02/14/22 08:05 Blood Culture - Preliminary Blood No Growth after 120 hours Assessment and Plan Assessment: Impression. 1. ESRD on dialysis Monday stable fistula left upper arm which is clean 2. Post dental extraction bacteremia which is cleared also has choledocholithiasis 3. anemia hemoglobin is 9.4 slightly below target. Recommendation 1. Maintain current dialysis schedule on Monday 2. Patient is scheduled for TARIK tomorrow 3. Start darbepoetin. 4. Check iron saturation
--- NOTE | 2022-02-20 11:11 | P.PN ---
Subjective Progress Note Date: 02/20/22 HISTORY OF PRESENTING ILLNESS This is a pleasant 61-year-old with past medical history significant for end- stage renal disease, hypertension. He presented 02/12 secondary to hypotension while at dialysis and admits he had been feeling somewhat weak and fatigued. Patient currently somewhat confused and some of history supplied by chart. Cardiology was consult if her TARIK secondary to concern of bacteremia as well as concern of altered mental status with possible cardiac source of emboli. 02/19 Patient is followed for bacteremia and confirmed with Dr. Berumen that TARIK will be necessary. We will plan this on Monday. 02/20 No new concerns today. Patient has been afebrile. Heart rate is in the 50s, blood pressure 105/65. TARIK is scheduled for Monday. PHYSICAL EXAMINATION Vital signs reviewed. CONSTITUTIONAL: No apparent distress, patient confused HEENT: Head is normocephalic. Pupils are equal, round. Sclerae anicteric. Mucous membranes of the mouth are moist. No JVD. No carotid bruit. CHEST EXAMINATION: Lungs are clear to auscultation. No chest wall tenderness is noted on palpation or with deep breathing. HEART EXAMINATION: Regular rate and rhythm. S1, S2 heard. No murmurs, gallops or rub. ABDOMEN: Soft, nontender. Positive bowel sounds. EXTREMITIES: 2+ peripheral pulses, no lower extremity edema and no calf tenderness. NEUROLOGIC EXAMINATION: Patient is awake, alert, not answering questions appropriately ASSESSMENT 1. Alpha hemolytic streptococcus bacteremia 2 of 2, bacteremia appears to clear it 2. MRI findings concerning for septic emboli 3. Altered mental status, concern of stroke 4. Moderate to severe tricuspid regurgitation by transthoracic echo 02/17 5. Altered months as status 6. Chronic kidney disease PLAN Patient with complex presentation with concern of altered mental status however additional bacteremia. Bacteremia appears to have improved however MRI concerning for septic emboli. Schedule patient for TARIK on Monday Nurse practitioner note has been reviewed, I agree with the documented findings and plan of care. Patient was seen and examined. Objective - Vital Signs Vital signs: Vital Signs Temp 98.5 F 02/20/22 09:15 Pulse 57 L 02/20/22 09:15 Resp 18 02/20/22 09:15 BP 105/65 02/20/22 09:15 Pulse Ox 99 02/20/22 09:15 FiO2 Intake & Output 02/19/22 02/20/2202/20/22 18:59 06:59 18:59 Intake Total 100 Output Total 0 0 Balance 0 100 Weight 75.5 kg Intake: Intake, IV Titration 100 Amount cefTRIAXone 2 gm In 100 Sodium Chloride 0.9% 50 ml @ 100 mls/hr IVPB Q24H [facility] Rx#:[id number] Oral 0 Output: Urine 0 0 Other: Voiding Method Diaper Diaper - Labs CBC & Chem 7: 02/20/22 05:56 02/20/22 05:56 Labs: Abnormal Lab Results - Last 24 Hours (Table) 02/19/22 02/19/22 02/19/22 Range/Units 07:26 07:26 11:50 WBC (3.8-10.6) k/uL RBC (4.30-5.90) m/uL Hgb (13.0-17.5) gm/dL Hct (39.0-53.0) % RDW (11.5-15.5) % Neutrophils # (Manual) 12.20 H (1.3-7.7) k/uL Lymphocytes # (Manual) (1.0-4.8) k/uL Monocytes # (Manual) 1.06 H (0-1.0) k/uL Metamyelocytes # (Man) 0.15 H (0) k/uL Myelocytes # (Manual) 0.30 H (0) k/uL ESR 122 H (0-15) mm/hr Sodium (137-145) mmol/L BUN (9-20) mg/dL Creatinine (0.66-1.25) mg/dL Glucose (74-99) mg/dL POC Glucose (mg/dL) 133 H (70-110) mg/dL Calcium (8.4-10.2) mg/dL Total Bilirubin (0.2-1.3) mg/dL ALT (4-49) U/L Alkaline Phosphatase (38-126) U/L C-Reactive Protein 8.9 H (<1.0) mg/dL Total Protein (6.3-8.2) g/dL Albumin (3.5-5.0) g/dL 02/19/22 02/20/22 02/20/22 Range/Units 20:15 05:56 05:56 WBC 14.0 H (3.8-10.6) k/uL RBC 3.08 L (4.30-5.90) m/uL Hgb 9.4 L (13.0-17.5) gm/dL Hct 29.5 L (39.0-53.0) % RDW 16.2 H (11.5-15.5) % Neutrophils # (Manual) 11.20 H (1.3-7.7) k/uL Lymphocytes # (Manual) 0.84 L (1.0-4.8) k/uL Monocytes # (Manual) (0-1.0) k/uL Metamyelocytes # (Man) 0.70 H (0) k/uL Myelocytes # (Manual) 0.28 H (0) k/uL ESR (0-15) mm/hr Sodium 133 L (137-145) mmol/L BUN 35 H (9-20) mg/dL Creatinine 4.17 H (0.66-1.25) mg/dL Glucose 206 H (74-99) mg/dL POC Glucose (mg/dL) 143 H (70-110) mg/dL Calcium 8.1 L (8.4-10.2) mg/dL Total Bilirubin 3.4 H (0.2-1.3) mg/dL ALT 70 H (4-49) U/L Alkaline Phosphatase 326 H (38-126) U/L C-Reactive Protein (<1.0) mg/dL Total Protein 5.3 L (6.3-8.2) g/dL Albumin 2.5 L (3.5-5.0) g/dL 02/20/22 Range/Units 06:31 WBC (3.8-10.6) k/uL RBC (4.30-5.90) m/uL Hgb (13.0-17.5) gm/dL Hct (39.0-53.0) % RDW (11.5-15.5) % Neutrophils # (Manual) (1.3-7.7) k/uL Lymphocytes # (Manual) (1.0-4.8) k/uL Monocytes # (Manual) (0-1.0) k/uL Metamyelocytes # (Man) (0) k/uL Myelocytes # (Manual) (0) k/uL ESR (0-15) mm/hr Sodium (137-145) mmol/L BUN (9-20) mg/dL Creatinine (0.66-1.25) mg/dL Glucose (74-99) mg/dL POC Glucose (mg/dL) 226 H (70-110) mg/dL Calcium (8.4-10.2) mg/dL Total Bilirubin (0.2-1.3) mg/dL ALT (4-49) U/L Alkaline Phosphatase (38-126) U/L C-Reactive Protein (<1.0) mg/dL Total Protein (6.3-8.2) g/dL Albumin (3.5-5.0) g/dL Microbiology - Last 24 Hours (Table) 02/16/22 15:20 Gram Stain - Preliminary Paracentesis Fluid Body Fluid Culture - Preliminary 02/16/22 15:20 Anaerobic Culture - Preliminary Paracentesis Fluid 02/14/22 08:05 Blood Culture - Preliminary Blood No Growth after 120 hours 02/15/22 07:39 Blood Culture - Preliminary Blood No Growth after 96 hours
--- NOTE | 2022-02-20 11:59 | P.PN ---
Progress Note - Text Progress Note Date: 02/20/22 The patient [place] stable. His liver function tests have improved. On exam vital signs are stable. Abdomen is soft. There is no significant right upper quadrant tenderness. History of chronic cholecystitis with biliary sludge. Patient will undergo outpatient laparoscopic ostectomy once medically stable.
--- NOTE | 2022-02-20 12:37 | P.PN ---
Subjective Progress Note Date: 02/18/22 Patient was 61-year-old male came in with complaints of tiredness weakness drowsiness. Patient has been constipated as well. Patient was given Tylenol 3 after he is a dental procedure patient pain is not bad at this time. Patient the blood pressure is extremely low was given IV fluids in ER patient is Monday and Monday hemodialysis schedule a patient doesn't have a short is a doesn't have any pulmonary edema on the chest x-ray because of which are hemanalysis be is being held at this time and nephrology's recording cautious hydration because of his hypotension. Patient's sodium is also low at 134. Patient appears to have toxicity from codeine and decreased excretion because of renal dysfunction. Patient appears bit encephalopathic 02/13/2022 Patient is evaluated today on medical floor. He is confused and drowsy. Nursing reports increased confusion. Blood pressure continues to run low in the high 90s. Remains afebrile. Sinus bradycardia on the heart monitor. He is receiving IV normal saline at 75 mls per hour. Plan per nephrology is to undergo hemodialysis today. Patient does have increased abdominal distention today, has positive bowel sounds there is no focal tenderness noted on exam. AST and ALT are increased. He did have lactic acidosis on admission as well. He does have consistent leukocytosis today 27.4. Blood cultures are currently pending at this time. Creatinine shows worsening renal function. He has not had any urine output per patient he does make some urine. He reports that bowels are moving. Will check a procalcitonin level and if elevated add empiric antibiotics and consult infectious disease. 02/14/2022 Patient evaluated on medical floor. He continues to be drowsy, he is arousable. Speech is slurred. He does have right facial droop today unclear if this is secondary to mild right facial swelling there is some tenderness to touch. No focal weakness noted however he has significant generalized weakness. Procalcitonin level came back yesterday at >100 and he was started on IV cefepime, blood cultures came back positive last night gram positive, streptococcus species. Infectious disease on consult and IV vancomycin has been added. Liver enzymes and bili remain elevated and abdominal ultrasound was done which shows gallbladder with sludge possible acute cholecystitis. Lipase is elevated at 5815. Patient is scheduled for MRCP to evaluated for choledocholelisthiasis. White count today 22.40, hgb 9.4, sodium 136, BUN 51.3, creatinine 5.7 today. Glucose in the 100s. 02/15/2022 Patient evaluated on step down unit. Negative brain CT. Neurology work up in place. He is more awake today alert x 1 to 2. He is undergoing hemodialysis t [facility]. Blood cultures showing alpha hemolytic streptococcus. Patient had MRCP today, surgery following and feel elevated enzymes secondary to acute pancreatitis. 02/16/2022 Patient is evaluated today on step down unit. He is more awake and alert, currently alert x 2 to 3. He continues to be drowsy. Continues with right sided facial droop, no focal weakness noted. Patient had MRI completed today showing scattered bilateral punctuate white matter changes compatible with acute ischemic changes. Possibly from septic emboli. Possibly right mastoiditis. He does complain of some pain and numbness to the face adjacent to where the tooth was extracted on his right upper jaw. Dr. Alcaraz has been consulted for further evaluation of this. Blood cultures showing alpha hemolytic streptococcus. Infectious disease following cultures, on IV unasyn. Echocardiogram has been ordered to evaluate for endocarditis. Case discussed with general surgery, MRCP has been completed there is mild extrahepatic duct dilation with the CBD measuring up to 8mm with no definitive filling defect, stricture or obstructing mass lesion noted within the limitations of exam. There is mild gallbladder wall thickening suggestive of gallbladder sludge. Patient has hepatosplenomegaly with iron deposition. Moderate volume ascites. White count is 18.1 today, hemoglobin 9.4, neutrophils 14.8. Sodium 133 today, potassium 2.4. Creatinine 3.76. Bilirubin continues to elevate up to 6.3 he does appear more jaundice today. Liver enzymes are improving overall. Lipase 1394. He remains afebrile, heart rate 54, blood pressure 120/65, 97% on room air. 02/17/2022 Patient is evaluated today resting in bed more awake and alert. Denies pain. Status post paracentesis with 4L of fluid off. Has standing over for biweekly paracentesis. Echocardiogram has been completed showing normal LV systolic function with moderate pulmonary hypertension and also moderate to severe tricuspid regurgitation. Cardiology has been consulted for possible TARIK. General surgery has evaluated the patient today and recommending possible laproscopic cholecystectomy secondary to chronic cholecystitis with sludge pending improvement in his medical condition. IV unasyn can cause biliary stasis this was discussed with ID consultation and antibiotics have been changed to ceftriaxone and repeat labs tomorrow. He is being dialyzed today. Maxillary facial CT is pending at this time. Remains afebrile, heart rate 51, blood pressure 122/60, 95% room air. Labs today showing white count 16.3, hgb 9.0. Sodium 134, potassium 4.0, Although bilirubin is slightly up today at 6.6, AST/ALT and alk phos have improved. CRP 20.5. Lipase 1015. Lipid panel is significantly abnormal showing triglyceride level 317, total cholesterol 209, LDL 133, HDL 63. 02/18/2022 Patient is currently resting in bed. Awake alert but seems to be confused and lethargic. Patient has been afebrile. No complaints of chest pain or worsening shortness of breath. No nausea vomiting abdominal pain and diarrhea. Blood cultures showed all for hemolytic streptococcus. Patient remains on antibiotics in the form of ceftriaxone. Patient was seen by cardiology due to bacteremia and possible TARIK. MRI brain done on 02/16/2022 showed scattered bilateral cerebral punctate white matter changes compatible with acute ischemic changes best visualized on diffuse weighted imaging. Consider septic emboli within the differential. Clinical correlation for right mastoiditis. Patient is otherwise scheduled for hemodialysis TTS. Next hemodialysis is tomorrow. Review of Systems Constitutional: Reports fatigue, denied any fever. Cardio vascular: denied any chest pain, palpitations Gastrointestinal: Denies abdominal pain today, no nausea vomiting or diarrhea noted. Pulmonary: Denied any shortness of breath cough Neurologic: Continues with right facial droop. All inpatient medications were reviewed and appropriate changes in these medications as dictated in the interval history and assessment and plan. PHYSICAL EXAMINATION: GENERAL: The patient is drowsy sleepy oriented 2, not in any acute distress. Well developed, well nourished. Pale. HEENT: Pupils are round and equally reacting to light. EOMI. No scleral icterus. No conjunctival pallor. Normocephalic, atraumatic. No pharyngeal erythema. No thyromegaly. He has Molars on the right upper jaw have been extracted. No evidence of abscess at the gumline on basic exam. Malodorous breath. CARDIOVASCULAR: S1 and S2 present. No murmurs, rubs, or gallops. PULMONARY: Chest is clear to auscultation, no wheezing or crackles. ABDOMEN: Soft, notenderness noted, nondistended, normoactive bowel sounds. No palpable organomegaly. MUSCULOSKELETAL: No joint swelling or deformity. EXTREMITIES: No cyanosis, clubbing, or pedal edema. NEUROLOGICAL: Diffuse generalized weakness. drowsy. right facial droop continues. SKIN: No rashes. Jaundice. Assessment and plan Assessment -Acute ischemic stroke there are multiple small foci over bilateral hemisphere noted on MRI, concern for emboli and also septic emboli. -Altered mental status secondary toxic metabolic encephalopathy secondary to recent opiate use, and sepsis, there is also concern for stroke.. -Streptococcus bacteremia . Repeat blood cultures negative. -Sepsis present on admission patient has significant leukocytosis, had dental work done recently with evidence of right mastoiditis on MRI, source is possibly recent dental tooth extraction vs. gallbladder -Elevated transaminases with elevated bilirubin secondary to pancreatitis with elevated lipase there is also evidence of cholecystitis with sludge. -Lactic acidosis on admission, normalized -Volume overload patient missed hemodialysis secondary to hypotension and dizzin ess, [place] [address] - improving -ESRD on hemodialysis. TTS., initially hypotensive, blood pressure has improved. -Recurrent ascites with frequent paracentesis s/p paracentesis on 02/16 with 4L of fluid off -Mild troponin elevation secondary to renal disease -hyponatremia -Gastroesophageal reflux disease DVT prophylaxis: Subcutaneous heparin GI prophylaxis: IV pepcid Plan Avoid use of opiates Antibiotics changed to ceftriaxone. ID is on board. Hemodialysis as per schedule on TTS. Cardiology consultation for possible TARIK Pending oral surgeon recommendations and also Facial/maxillary CT Possible laproscopic cholecystectomy when medically stable Clear liquid diet Monitor labs closely and repeat in AM. Objective - Vital Signs Vital signs: Vital Signs Temp 97.9 F 02/18/22 19:27 Pulse 52 L 02/18/22 19:27 Resp 18 02/18/22 19:27 BP 107/64 02/18/22 19:27 Pulse Ox 98 02/18/22 19:27 FiO2 Intake & Output 02/18/22 02/18/22 02/19/22 06:59 18:59 06:59 Intake Total 180 Balance 180 Weight 55 kg Intake: Oral 180 Other: Voiding Method Diaper Diaper # Voids 0 # Bowel Movements 1 - Labs CBC & Chem 7: 02/20/22 05:56 02/20/22 05:56 Labs: Abnormal Lab Results - Last 24 Hours (Table) 02/18/22 02/18/22 02/18/22 Range/Units 06:23 06:33 06:33 WBC 15.2 H (3.8-10.6) k/uL RBC 2.91 L (4.30-5.90) m/uL Hgb 8.9 L (13.0-17.5) gm/dL Hct 27.6 L (39.0-53.0) % RDW 15.8 H (11.5-15.5) % Neutrophils # (Manual) 11.80 H (1.3-7.7) k/uL Metamyelocytes # (Man) 0.61 H (0) k/uL Myelocytes # (Manual) 0.46 H (0) k/uL Sodium 133 L (137-145) mmol/L BUN 34 H (9-20) mg/dL Creatinine 4.05 H (0.66-1.25) mg/dL Glucose 145 H (74-99) mg/dL POC Glucose (mg/dL) 162 H (70-110) mg/dL Calcium 8.0 L (8.4-10.2) mg/dL Total Bilirubin 5.3 H (0.2-1.3) mg/dL ALT 115 H (4-49) U/L Alkaline Phosphatase 334 H (38-126) U/L Total Protein 5.4 L (6.3-8.2) g/dL Albumin 2.6 L (3.5-5.0) g/dL 02/18/22 02/18/22 02/18/22 Range/Units 11:55 16:51 20:25 WBC (3.8-10.6) k/uL RBC (4.30-5.90) m/uL Hgb (13.0-17.5) gm/dL Hct (39.0-53.0) % RDW (11.5-15.5) % Neutrophils # (Manual) (1.3-7.7) k/uL Metamyelocytes # (Man) (0) k/uL Myelocytes # (Manual) (0) k/uL Sodium (137-145) mmol/L BUN (9-20) mg/dL Creatinine (0.66-1.25) mg/dL Glucose (74-99) mg/dL POC Glucose (mg/dL) 232 H 168 H 260 H (70-110) mg/dL Calcium (8.4-10.2) mg/dL Total Bilirubin (0.2-1.3) mg/dL ALT (4-49) U/L Alkaline Phosphatase (38-126) U/L Total Protein (6.3-8.2) g/dL Albumin (3.5-5.0) g/dL Microbiology - Last 24 Hours (Table) 02/14/22 08:05 Blood Culture - Preliminary Blood No Growth after 96 hours 02/15/22 07:39 Blood Culture - Preliminary Blood No Growth after 72 hours 02/16/22 15:20 Body Fluid Culture - Preliminary Paracentesis Fluid
--- NOTE | 2022-02-20 12:41 | P.PN ---
Subjective Progress Note Date: 02/19/22 Patient was 61-year-old male came in with complaints of tiredness weakness drowsiness. Patient has been constipated as well. Patient was given Tylenol 3 after he is a dental procedure patient pain is not bad at this time. Patient the blood pressure is extremely low was given IV fluids in ER patient is Monday and Monday hemodialysis schedule a patient doesn't have a short is a doesn't have any pulmonary edema on the chest x-ray because of which are hemanalysis be is being held at this time and nephrology's recording cautious hydration because of his hypotension. Patient's sodium is also low at 134. Patient appears to have toxicity from codeine and decreased excretion because of renal dysfunction. Patient appears bit encephalopathic 02/13/2022 Patient is evaluated today on medical floor. He is confused and drowsy. Nursing reports increased confusion. Blood pressure continues to run low in the high 90s. Remains afebrile. Sinus bradycardia on the heart monitor. He is receiving IV normal saline at 75 mls per hour. Plan per nephrology is to undergo hemodialysis today. Patient does have increased abdominal distention today, has positive bowel sounds there is no focal tenderness noted on exam. AST and ALT are increased. He did have lactic acidosis on admission as well. He does have consistent leukocytosis today 27.4. Blood cultures are currently pending at this time. Creatinine shows worsening renal function. He has not had any urine output per patient he does make some urine. He reports that bowels are moving. Will check a procalcitonin level and if elevated add empiric antibiotics and consult infectious disease. 02/14/2022 Patient evaluated on medical floor. He continues to be drowsy, he is arousable. Speech is slurred. He does have right facial droop today unclear if this is secondary to mild right facial swelling there is some tenderness to touch. No focal weakness noted however he has significant generalized weakness. Procalcitonin level came back yesterday at >100 and he was started on IV cefepime, blood cultures came back positive last night gram positive, streptococcus species. Infectious disease on consult and IV vancomycin has been added. Liver enzymes and bili remain elevated and abdominal ultrasound was done which shows gallbladder with sludge possible acute cholecystitis. Lipase is elevated at 5815. Patient is scheduled for MRCP to evaluated for choledocholelisthiasis. White count today 22.40, hgb 9.4, sodium 136, BUN 51.3, creatinine 5.7 today. Glucose in the 100s. 02/15/2022 Patient evaluated on step down unit. Negative brain CT. Neurology work up in place. He is more awake today alert x 1 to 2. He is undergoing hemodialysis t mason. Blood cultures showing alpha hemolytic streptococcus. Patient had MRCP today, surgery following and feel elevated enzymes secondary to acute pancreatitis. 02/16/2022 Patient is evaluated today on step down unit. He is more awake and alert, currently alert x 2 to 3. He continues to be drowsy. Continues with right sided facial droop, no focal weakness noted. Patient had MRI completed today showing scattered bilateral punctuate white matter changes compatible with acute ischemic changes. Possibly from septic emboli. Possibly right mastoiditis. He does complain of some pain and numbness to the face adjacent to where the tooth was extracted on his right upper jaw. Dr. Alcaraz has been consulted for further evaluation of this. Blood cultures showing alpha hemolytic streptococcus. Infectious disease following cultures, on IV unasyn. Echocardiogram has been ordered to evaluate for endocarditis. Case discussed with general surgery, MRCP has been completed there is mild extrahepatic duct dilation with the CBD measuring up to 8mm with no definitive filling defect, stricture or obstructing mass lesion noted within the limitations of exam. There is mild gallbladder wall thickening suggestive of gallbladder sludge. Patient has hepatosplenomegaly with iron deposition. Moderate volume ascites. White count is 18.1 today, hemoglobin 9.4, neutrophils 14.8. Sodium 133 today, potassium 2.4. Creatinine 3.76. Bilirubin continues to elevate up to 6.3 he does appear more jaundice today. Liver enzymes are improving overall. Lipase 1394. He remains afebrile, heart rate 54, blood pressure 120/65, 97% on room air. 02/17/2022 Patient is evaluated today resting in bed more awake and alert. Denies pain. Status post paracentesis with 4L of fluid off. Has standing over for biweekly paracentesis. Echocardiogram has been completed showing normal LV systolic function with moderate pulmonary hypertension and also moderate to severe tricuspid regurgitation. Cardiology has been consulted for possible TARIK. General surgery has evaluated the patient today and recommending possible laproscopic cholecystectomy secondary to chronic cholecystitis with sludge pending improvement in his medical condition. IV unasyn can cause biliary stasis this was discussed with ID consultation and antibiotics have been changed to ceftriaxone and repeat labs tomorrow. He is being dialyzed today. Maxillary facial CT is pending at this time. Remains afebrile, heart rate 51, blood pressure 122/60, 95% room air. Labs today showing white count 16.3, hgb 9.0. Sodium 134, potassium 4.0, Although bilirubin is slightly up today at 6.6, AST/ALT and alk phos have improved. CRP 20.5. Lipase 1015. Lipid panel is significantly abnormal showing triglyceride level 317, total cholesterol 209, LDL 133, HDL 63. 02/18/2022 Patient is currently resting in bed. Awake alert but seems to be confused and lethargic. Patient has been afebrile. No complaints of chest pain or worsening shortness of breath. No nausea vomiting abdominal pain and diarrhea. Blood cultures showed all for hemolytic streptococcus. Patient remains on antibiotics in the form of ceftriaxone. Patient was seen by cardiology due to bacteremia and possible TARIK. MRI brain done on 02/16/2022 showed scattered bilateral cerebral punctate white matter changes compatible with acute ischemic changes best visualized on diffuse weighted imaging. Consider septic emboli within the differential. Clinical correlation for right mastoiditis. Patient is otherwise scheduled for hemodialysis TTS. Next hemodialysis is tomorrow. 02/19/2022 Patient's condition remains the same. Awake alert but seems lethargic. No facial droop noted. No complains of nausea vomiting. Patient has been afebrile. Repeat blood cultures have been negative. Patient is being continued on antibiotics the form of ceftriaxone. Discussed with neurosurgery and recommending debridement of right mastoiditis once medically stable. Cardiology is planning for TARKI on Monday if needed. Laboratory data showed WBC 15.1 hemoglobin 9.5 and platelets 252 Sodium 133 potassium 3.9 bicarb is 21 BUN 47 creatinine 5.39, AST 48 DT 8 alk phos 321 and albumin 2.3. Blood sugar is 119. Review of Systems Constitutional: Reports fatigue, denied any fever. Cardio vascular: denied any chest pain, palpitations Gastrointestinal: Denies abdominal pain today, no nausea vomiting or diarrhea noted. Pulmonary: Denied any shortness of breath cough Neurologic: Improved right facial droop. All inpatient medications were reviewed and appropriate changes in these medications as dictated in the interval history and assessment and plan. PHYSICAL EXAMINATION: GENERAL: The patient is drowsy sleepy oriented 2, not in any acute distress. Well developed, well nourished. Pale. HEENT: Pupils are round and equally reacting to light. EOMI. No scleral icterus. No conjunctival pallor. Normocephalic, atraumatic. No pharyngeal erythema. No thyromegaly. He has Molars on the right upper jaw have been extracted. No evidence of abscess at the gumline on basic exam. Malodorous breath. CARDIOVASCULAR: S1 and S2 present. No murmurs, rubs, or gallops. PULMONARY: Chest is clear to auscultation, no wheezing or crackles. ABDOMEN: Soft, notenderness noted, nondistended, normoactive bowel sounds. No palpable organomegaly. MUSCULOSKELETAL: No joint swelling or deformity. EXTREMITIES: No cyanosis, clubbing, or pedal edema. NEUROLOGICAL: Diffuse generalized weakness. drowsy. right facial droop continues. SKIN: No rashes. Jaundice. Assessment and plan Assessment -Acute ischemic stroke there are multiple small foci over bilateral hemisphere noted on MRI, concern for emboli and also septic emboli. Cardiology is planning for TARIK on Monday.. -Altered mental status secondary toxic metabolic encephalopathy secondary to recent opiate use, and sepsis, there is also concern for stroke.. -Streptococcus bacteremia . Repeat blood cultures negative. -Sepsis present on admission patient has significant leukocytosis, had dental work done recently with evidence of right mastoiditis on MRI, source is possibly recent dental tooth extraction vs. gallbladder -Elevated transaminases with elevated bilirubin secondary to pancreatitis with elevated lipase there is also evidence of cholecystitis with sludge. -Lactic acidosis on admission, normalized -Volume overload patient missed hemodialysis secondary to hypotension and dizziness, [place] [address] - improving -ESRD on hemodialysis. TTS., initially hypotensive, blood pressure has improved. -Recurrent ascites with frequent paracentesis s/p paracentesis on 02/16 with 4L of fluid off -Mild troponin elevation secondary to renal disease -hyponatremia -Gastroesophageal reflux disease DVT prophylaxis: Subcutaneous heparin GI prophylaxis: IV pepcid Plan Avoid use of opiates Antibiotics changed to ceftriaxone. ID is on board. Hemodialysis as per schedule on TTS. Cardiology consultation for possible TARIK Pending oral surgeon recommendations and also Facial/maxillary CT Possible laproscopic cholecystectomy when medically stable Clear liquid diet Monitor labs closely and repeat in AM. Objective - Vital Signs Vital signs: Vital Signs Temp 97.5 F L 02/19/22 21:00 Pulse 54 L 02/19/22 21:00 Resp 16 02/19/22 21:00 BP 136/65 02/19/22 21:00 Pulse Ox 98 02/19/22 21:00 FiO2 Intake & Output 02/19/22 02/19/22 02/20/22 06:59 18:59 06:59 Output Total 0 0 Balance 0 0 Weight 54.5 kg Output: Urine 0 0 Other: Voiding Method Diaper Diaper Diaper - Labs CBC & Chem 7: 02/20/22 05:56 02/20/22 05:56 Labs: Abnormal Lab Results - Last 24 Hours (Table) 02/19/22 02/19/22 02/19/22 Range/Units 06:01 07:26 07:26 WBC 15.1 H (3.8-10.6) k/uL RBC 3.01 L (4.30-5.90) m/uL Hgb 9.5 L (13.0-17.5) gm/dL Hct 28.9 L (39.0-53.0) % RDW 15.8 H (11.5-15.5) % Neutrophils # (Manual) 12.20 H (1.3-7.7) k/uL Monocytes # (Manual) 1.06 H (0-1.0) k/uL Metamyelocytes # (Man) 0.15 H (0) k/uL Myelocytes # (Manual) 0.30 H (0) k/uL ESR 122 H (0-15) mm/hr Sodium 133 L (137-145) mmol/L Carbon Dioxide 21 L (22-30) mmol/L BUN 47 H (9-20) mg/dL Creatinine 5.39 H (0.66-1.25) mg/dL Glucose 119 H (74-99) mg/dL POC Glucose (mg/dL) 139 H (70-110) mg/dL Calcium 8.1 L (8.4-10.2) mg/dL Total Bilirubin 4.2 H (0.2-1.3) mg/dL ALT 88 H (4-49) U/L Alkaline Phosphatase 321 H (38-126) U/L C-Reactive Protein 8.9 H (<1.0) mg/dL Total Protein 5.4 L (6.3-8.2) g/dL Albumin 2.5 L (3.5-5.0) g/dL 02/19/22 02/19/22 Range/Units 11:50 20:15 WBC (3.8-10.6) k/uL RBC (4.30-5.90) m/uL Hgb (13.0-17.5) gm/dL Hct (39.0-53.0) % RDW (11.5-15.5) % Neutrophils # (Manual) (1.3-7.7) k/uL Monocytes # (Manual) (0-1.0) k/uL Metamyelocytes # (Man) (0) k/uL Myelocytes # (Manual) (0) k/uL ESR (0-15) mm/hr Sodium (137-145) mmol/L Carbon Dioxide (22-30) mmol/L BUN (9-20) mg/dL Creatinine (0.66-1.25) mg/dL Glucose (74-99) mg/dL POC Glucose (mg/dL) 133 H 143 H (70-110) mg/dL Calcium (8.4-10.2) mg/dL Total Bilirubin (0.2-1.3) mg/dL ALT (4-49) U/L Alkaline Phosphatase (38-126) U/L C-Reactive Protein (<1.0) mg/dL Total Protein (6.3-8.2) g/dL Albumin (3.5-5.0) g/dL Microbiology - Last 24 Hours (Table) 02/16/22 15:20 Anaerobic Culture - Preliminary Paracentesis Fluid 02/16/22 15:20 Gram Stain - Preliminary Paracentesis Fluid Body Fluid Culture - Preliminary 02/14/22 08:05 Blood Culture - Preliminary Blood No Growth after 120 hours 02/15/22 07:39 Blood Culture - Preliminary Blood No Growth after 96 hours
[2022-02-20] MEDS: DARBEPOETIN ALFA 40 MCG/0.4 ML SYRINGE SQ SCH (12:47)
[2022-02-20 13:10] LABS: Glucose,Whole Blood 153 mg/dL (70-110)
--- NOTE | 2022-02-20 14:17 | P.PN ---
Subjective Progress Note Date: 02/20/22 Principal diagnosis: bacteremia Patient is a 61-year-old male with a past medical history significant for end-stage renal disease on hemodialysis through the left arm AV fistula patient presenting to the ER 2 days ago on 02/12/2022, patient was noticed to have elevated blood pressure at the dialysis center at the patient advised to go to the hospital patient be complaining of feeling weak since his teeth work done a week before presentation to the hospital , patient was noticed to have streptococcal bacteremia also elevated liver enzymes concern for choledocholit hiasis however MRCP did not show any stones in the CBD he did have a CT of the face with evidence of right lower jaw Osteomyelitis. On today's evaluation that is 02/20/2022, the patient remains to be afebrile, the patient is breathing comfortably on room air, the patient denies any chest pain shortness of breath or cough, the patient denies nausea no vomiting no abdominal pain or diarrhea, feeling slightly better Objective - Vital Signs Vital signs: Vital Signs Temp 97.9 F 02/20/22 13:00 Pulse 77 02/20/22 13:00 Resp 16 02/20/22 13:00 BP 110/65 02/20/22 13:00 Pulse Ox 97 02/20/22 13:00 FiO2 Intake & Output 02/19/22 02/20/22 02/20/22 18:59 06:59 18:59 Intake Total 100 240 Output Total 0 0 Balance 0 100 240 Weight 75.5 kg Intake: Intake, IV Titration 100 Amount cefTRIAXone 2 gm In 100 Sodium Chloride 0.9% 50 ml @ 100 mls/hr IVPB Q24H [facility] Rx#:[id number] Oral 0 240 Output: Urine 0 0 Other: Voiding Method Diaper Diaper Diaper # Voids 0 # Bowel Movements 1 - Exam GENERAL DESCRIPTION: Middle-aged male lying in bed in no distress RESPIRATORY SYSTEM: Unlabored breathing , decreased breath sounds at bases HEART: S1 S2 regular rate and rhythm , ABDOMEN: Soft , no tenderness EXTREMITIES: No edema feet - Labs CBC & Chem 7: 02/20/22 05:56 02/20/22 05:56 Labs: Abnormal Lab Results - Last 24 Hours (Table) 02/19/22 02/20/22 02/20/22 Range/Units 20:15 05:56 05:56 WBC 14.0 H (3.8-10.6) k/uL RBC 3.08 L (4.30-5.90) m/uL Hgb 9.4 L (13.0-17.5) gm/dL Hct 29.5 L (39.0-53.0) % RDW 16.2 H (11.5-15.5) % Neutrophils # (Manual) 11.20 H (1.3-7.7) k/uL Lymphocytes # (Manual) 0.84 L (1.0-4.8) k/uL Metamyelocytes # (Man) 0.70 H (0) k/uL Myelocytes # (Manual) 0.28 H (0) k/uL Sodium 133 L (137-145) mmol/L BUN 35 H (9-20) mg/dL Creatinine 4.17 H (0.66-1.25) mg/dL Glucose 206 H (74-99) mg/dL POC Glucose (mg/dL) 143 H (70-110) mg/dL Calcium 8.1 L (8.4-10.2) mg/dL Total Bilirubin 3.4 H (0.2-1.3) mg/dL ALT 70 H (4-49) U/L Alkaline Phosphatase 326 H (38-126) U/L Total Protein 5.3 L (6.3-8.2) g/dL Albumin 2.5 L (3.5-5.0) g/dL 02/20/22 02/20/22 Range/Units 06:31 12:50 WBC (3.8-10.6) k/uL RBC (4.30-5.90) m/uL Hgb (13.0-17.5) gm/dL Hct (39.0-53.0) % RDW (11.5-15.5) % Neutrophils # (Manual) (1.3-7.7) k/uL Lymphocytes # (Manual) (1.0-4.8) k/uL Metamyelocytes # (Man) (0) k/uL Myelocytes # (Manual) (0) k/uL Sodium (137-145) mmol/L BUN (9-20) mg/dL Creatinine (0.66-1.25) mg/dL Glucose (74-99) mg/dL POC Glucose (mg/dL) 226 H 153 H (70-110) mg/dL Calcium (8.4-10.2) mg/dL Total Bilirubin (0.2-1.3) mg/dL ALT (4-49) U/L Alkaline Phosphatase (38-126) U/L Total Protein (6.3-8.2) g/dL Albumin (3.5-5.0) g/dL Microbiology - Last 24 Hours (Table) 02/14/22 08:05 Blood Culture - Final Blood No Growth after 144 hours 02/15/22 07:39 Blood Culture - Preliminary Blood No Growth after 120 hours 02/16/22 15:20 Gram Stain - Preliminary Paracentesis Fluid Body Fluid Culture - Preliminary 02/16/22 15:20 Anaerobic Culture - Preliminary Paracentesis Fluid Assessment and Plan (1) Bacteremia Current Visit: Yes Status: Acute Code(s): R78.81 - BACTEREMIA SNOMED Code(s): 7782509 Plan: 1patient present to hospital with elevated blood pressure now with evidence of gram-positive bacteremia patient did have a recent tooth extraction and has been complaining of pain to the jaw area possible source of his bacteremia patient did have an abnormal ultrasound suspicious for cholecystitis And the patient did have elevated liver enzymes and a question of possible choledocholithiasis and cholangitis however the patient subsequently did have MRCP did not show any evidence of choledocholithiasis. Patient did have abnormal CT of the face concerning for possible osteomyelitis of the jaw 2blood cultures repeat has been negative so far 3patient did have abnormal MRI. Reported by radiologist as possible septic e mboli, however the patient is clinically not behaving as the patient cleared his bacteremia very quickly, echocardiogram did show some tricuspid regurgitation but no evidence of any vegetation , cardiology has been consulted and plan is for TARIK on 02/22/2022 4- patient white count is trending down to 14,000 today, patient continue with the Rocephin and Flagyl, continue supportive care Time with Patient: Less than 30
[2022-02-20 16:45] LABS: % Iron Saturation 28.73 (15.00-50.00)
[2022-02-20 17:05] LABS: Glucose,Whole Blood 172 mg/dL (70-110)
[2022-02-20 19:52] LABS: Glucose,Whole Blood 131 mg/dL (70-110)
[2022-02-21] MEDS: VELPHORO PO SCH ×3 (05:53→17:00)
[2022-02-21] MEDS: INSULIN ASPART (NovoLOG) 100 UNIT/ML VIAL SQ SCH ×4 (05:54→21:38)
[2022-02-21 05:55] LABS: Glucose,Whole Blood 128 mg/dL (70-110)
[2022-02-21] MEDS: carvediloL 12.5 MG TAB PO SCH ×2 (06:14→16:59)
[2022-02-21] MEDS: MIDODRINE 5 MG TAB PO SCH ×4 (06:14→16:59)
[2022-02-21] MEDS ORDERED: IV FLUID CONTINUATION 300 ML IV ONE (10:11)
[2022-02-21] MEDS ORDERED: BENZOCAINE SPRAY 1 CAN TOPICAL ONE (10:25)
[2022-02-21] MEDS ORDERED: MIDAZOLAM 2 MG/2 ML VIAL IV ONE (10:25)
[2022-02-21] MEDS ORDERED: fentaNYL (PF) 50 MCG/ML 2 ML AMP IV ONE (10:25)
[2022-02-21] MEDS ORDERED: PROPOFOL 10 MG/ML 20 ML VIAL IV ONE (10:41)
--- NOTE | 2022-02-21 11:58 | P.PN ---
Progress Note - Text Progress Note Date: 02/21/22 The patient was not in his room. We will plan for outpatient cholecystectomy when medically stable.
[2022-02-21 12:16] LABS: Glucose,Whole Blood 127 mg/dL (70-110)
[2022-02-21] MEDS: metroNIDAZOLE 500 MG TAB PO SCH ×3 (12:31→21:39)
[2022-02-21] MEDS: traMADol 50 MG TAB PO SCH ×4 (12:31→21:39)
[2022-02-21] MEDS: CHLORHEXIDINE GLUCONATE 15 ML CUP MUCOUS MEM SCH ×2 (12:32→21:40)
[2022-02-21] MEDS: HEPARIN SODIUM,PORCINE/PF 5,000 UNIT/0.5 ML SYRINGE SQ SCH ×2 (12:32→21:39)
[2022-02-21] MEDS: FAMOTIDINE 20 MG TAB PO SCH (12:32)
[2022-02-21 12:49] LABS: Calcium 8.3 mg/dL (8.4-10.2); Potassium 4.5 mmol/L (3.5-5.1)
--- NOTE | 2022-02-21 13:16 | CA ---
CARDIOLOGY REPORT PROCEDURE PERFORMED: Transesophageal echo. INDICATIONS FOR PROCEDURE: CVA, rule out cardiac source of thromboembolic phenomenon. PROCEDURE NOTE: After obtaining informed consent, transesophageal echocardiogram was performed in left lateral position using an Omniplane probe. Local and IV sedation were obtained by the media operator. The patient tolerated the procedure well without any obvious immediate complications. I could not intubate the patient as he has difficulty opening his mouth; hence, Anesthesia came and gave him propofol, and the TARIK was completed under sedation. FINDINGS: 1. There is no intracardiac thrombus within the left atrial appendage, left atrium, right atrium, right ventricle, or left ventricle. 2. Interatrial septum: There is no evidence of [id number] shunt by color-flow Doppler or [id number] shunt by agitated saline contrast study. 3. Left atrium appears enlarged. Right atrium and right ventricle appear moderately enlarged. 4. Mitral valve shows mild central mitral regurgitation. 5. Aortic valve is free of stenosis or regurgitation. 6. Tricuspid valve shows moderate tricuspid regurgitation. There is spontaneous echo contrast noted. 7. Left ventricle has normal size, shows diffuse global hypokinesis with mild LV dysfunction with an ejection fraction of 45%. CONCLUSION: No intracardiac thrombus. No evidence of shunting across the interatrial septum. Mild LV systolic dysfunction. MMODL / IJN: [id number] /
--- NOTE | 2022-02-21 14:05 | P.PN ---
Subjective Progress Note Date: 02/21/22 Principal diagnosis: bacteremia Patient is a 61-year-old male with a past medical history significant for end-stage renal disease on hemodialysis through the left arm AV fistula patient presenting to the ER 2 days ago on 02/12/2022, patient was noticed to have elevated blood pressure at the dialysis center at the patient advised to go to the hospital patient be complaining of feeling weak since his teeth work done a week before presentation to the hospital , patient was noticed to have streptococcal bacteremia also elevated liver enzymes concern for choledocholit hiasis however MRCP did not show any stones in the CBD he did have a CT of the face with evidence of right lower jaw Osteomyelitis. On today's evaluation that is 02/21/2022, the patient continues to be afebrile, the patient is breathing comfortably on room air, the patient denies any chest pain shortness of breath or cough, the patient still complaining of some pain to the right lower jaw area but did have some improvement and no nausea no vomiting and no diarrhea Objective - Vital Signs Vital signs: Vital Signs Temp 97.8 F 02/21/22 09:07 Pulse 99 02/21/22 10:58 Resp 16 02/21/22 10:58 BP 112/66 02/21/22 10:58 Pulse Ox 99 02/21/22 10:58 FiO2 Intake & Output 02/20/22 02/21/22 02/21/22 18:59 06:59 18:59 Intake Total 240 780 100 Output Total 0 Balance 240 780 100 Weight 75.5 kg Intake: IV 100 Oral 240 780 Output: Urine 0 Other: Voiding Method Diaper Bedside Commode Bedside Commode Diaper Diaper # Voids 0 0 # Bowel Movements 1 1 - Exam GENERAL DESCRIPTION: Middle-aged male lying in bed in no distress RESPIRATORY SYSTEM: Unlabored breathing , decreased breath sounds at bases HEART: S1 S2 regular rate and rhythm , ABDOMEN: Soft , no tenderness EXTREMITIES: No edema feet - Labs CBC & Chem 7: 02/20/22 05:56 02/21/22 11:59 Labs: Abnormal Lab Results - Last 24 Hours (Table) 02/20/22 02/20/22 02/20/22 Range/Units 05:56 12:50 17:04 Sodium (137-145) mmol/L Carbon Dioxide (22-30) mmol/L BUN (9-20) mg/dL Creatinine (0.66-1.25) mg/dL Glucose (74-99) mg/dL POC Glucose (mg/dL) 153 H 172 H (70-110) mg/dL Calcium (8.4-10.2) mg/dL Iron 39 L (65-175) ug/dL TIBC 136 L (228-460) ug/dL Transferrin 97.2 L (204.0-354.0) mg/dL 02/20/22 02/21/22 02/21/22 Range/Units 19:51 05:53 11:59 Sodium 131 L (137-145) mmol/L Carbon Dioxide 17 L (22-30) mmol/L BUN 51 H (9-20) mg/dL Creatinine 5.95 H (0.66-1.25) mg/dL Glucose 120 H (74-99) mg/dL POC Glucose (mg/dL) 131 H 128 H (70-110) mg/dL Calcium 8.3 L (8.4-10.2) mg/dL Iron (65-175) ug/dL TIBC (228-460) ug/dL Transferrin (204.0-354.0) mg/dL 02/21/22 Range/Units 12:13 Sodium (137-145) mmol/L Carbon Dioxide (22-30) mmol/L BUN (9-20) mg/dL Creatinine (0.66-1.25) mg/dL Glucose (74-99) mg/dL POC Glucose (mg/dL) 127 H (70-110) mg/dL Calcium (8.4-10.2) mg/dL Iron (65-175) ug/dL TIBC (228-460) ug/dL Transferrin (204.0-354.0) mg/dL Microbiology - Last 24 Hours (Table) 02/16/22 15:20 Anaerobic Culture - Final Paracentesis Fluid 02/16/22 15:20 Gram Stain - Final Paracentesis Fluid Body Fluid Culture - Final 02/15/22 07:39 Blood Culture - Final Blood No Growth after 144 hours 02/14/22 08:05 Blood Culture - Final Blood No Growth after 144 hours Assessment and Plan (1) Bacteremia Current Visit: Yes Status: Acute Code(s): R78.81 - BACTEREMIA SNOMED Code(s): 8884789 Plan: 1patient present to hospital with elevated blood pressure now with evidence of gram-positive bacteremia patient did have a recent tooth extraction and has been complaining of pain to the jaw area possible source of his bacteremia patient did have an abnormal ultrasound suspicious for cholecystitis And the patient did have elevated liver enzymes and a question of possible choledocholithiasis and cholangitis however the patient subsequently did have MRCP did not show any evidence of choledocholithiasis. Patient did have abnormal CT of the face concerning for possible osteomyelitis of the jaw 2blood cultures repeat has been negative so far 3patient did have abnormal MRI. Reported by radiologist as possible septic emboli, however the patient is clinically not behaving as the patient cleared his bacteremia very quickly, echocardiogram did show some tricuspid regurgitation but no evidence of any vegetation , patient did have a TARIK completed on 02/21/2022 that was negative for any vegetation 4- patient seemed to have some clinical improvement and continue with the Rocephin and Flagyl, with a plan to finish therapy with cefazolin through dialysis and oral Flagyl no discharge Time with Patient: Less than 30
[2022-02-21 16:56] LABS: Glucose,Whole Blood 218 mg/dL (70-110)
[2022-02-21 20:17] LABS: Glucose,Whole Blood 259 mg/dL (70-110)
[2022-02-22 06:11] LABS: Glucose,Whole Blood 162 mg/dL (70-110)
[2022-02-22] MEDS: carvediloL 12.5 MG TAB PO SCH ×2 (06:39→18:16)
[2022-02-22] MEDS: MIDODRINE 5 MG TAB PO SCH ×3 (06:40→18:17)
[2022-02-22] MEDS: INSULIN ASPART (NovoLOG) 100 UNIT/ML VIAL SQ SCH ×4 (06:40→21:30)
[2022-02-22] MEDS: VELPHORO PO SCH ×3 (06:41→17:02)
[2022-02-22] MEDS: traMADol 50 MG TAB PO SCH ×4 (06:52→21:30)
[2022-02-22 08:37] LABS: HCT 29.4 % (39.0-53.0); HGB 9.5 gm/dL (13.0-17.5); Hypochromasia Slight; MCH 30.9 pg (25.0-35.0); MCHC 32.4 g/dL (31.0-37.0); MCV 95.2 fL (80.0-100.0); Mean Platelet Volume 9.5; Platelet Count 429 k/uL (150-450); RBC 3.09 m/uL (4.30-5.90); WBC 12.2 k/uL (3.8-10.6)
[2022-02-22 08:45] LABS: Albumin 2.4 g/dL (3.5-5.0); Potassium 4.7 mmol/L (3.5-5.1); Total Bilirubin 2.5 mg/dL (0.2-1.3); Total Protein 5.2 g/dL (6.3-8.2)
[2022-02-22] MEDS: metroNIDAZOLE 500 MG TAB PO SCH (09:08)
[2022-02-22] MEDS: FAMOTIDINE 20 MG TAB PO SCH (09:08)
[2022-02-22] MEDS: HEPARIN SODIUM,PORCINE/PF 5,000 UNIT/0.5 ML SYRINGE SQ SCH ×2 (09:08→21:30)
[2022-02-22] MEDS: CHLORHEXIDINE GLUCONATE 15 ML CUP MUCOUS MEM SCH ×2 (09:08→21:38)
[2022-02-22 09:38] LABS: C Reactive Protein 16.1 mg/dL (<1.0)
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
[2022-02-22] MEDS ORDERED: traMADol 50 MG TAB PO STA (10:02)
[2022-02-22 11:49] LABS: Glucose,Whole Blood 120 mg/dL (70-110)
--- NOTE | 2022-02-22 12:21 | P.PN ---
Subjective Patient is seen in follow-up for end-stage renal disease. He is maintained on hemodialysis on Monday schedule. Resting in bed. No active complaints. Vital signs are stable. General: Awake. No acute distress. HEENT: Head exam is unremarkable. LUNGS: Breath sounds decreased. HEART: Rate and Rhythm are regular. ABDOMEN: Soft, no distention. EXTREMITITES: No edema. Objective - Vital Signs Vital signs: Vital Signs Temp 97.4 F L 02/22/22 03:40 Pulse 51 L 02/22/22 11:59 Resp 15 02/22/22 11:59 BP 135/62 02/22/22 11:59 Pulse Ox 98 02/22/22 11:59 FiO2 Intake & Output 02/21/22 02/22/22 02/22/22 18:59 06:59 18:59 Intake Total 340 120 Output Total 0 Balance 340 120 Weight 75.5 kg 76 kg Intake: IV 100 Oral 240 120 Output: Urine 0 Other: Voiding Method Bedside Commode Bedside Commode Bedside Commode Diaper Diaper Diaper # Voids 1 0 # Bowel Movements 1 1 0 - Labs CBC & Chem 7: 02/22/22 07:14 02/22/22 07:14 Labs: Abnormal Lab Results - Last 24 Hours (Table) 02/21/22 02/21/22 02/21/22 Range/Units 11:59 12:13 16:52 WBC (3.8-10.6) k/uL RBC (4.30-5.90) m/uL Hgb (13.0-17.5) gm/dL Hct (39.0-53.0) % RDW (11.5-15.5) % Sodium 131 L (137-145) mmol/L Chloride (98-107) mmol/L Carbon Dioxide 17 L (22-30) mmol/L BUN 51 H (9-20) mg/dL Creatinine 5.95 H (0.66-1.25) mg/dL Glucose 120 H (74-99) mg/dL POC Glucose (mg/dL) 127 H 218 H (70-110) mg/dL Calcium 8.3 L (8.4-10.2) mg/dL Total Bilirubin (0.2-1.3) mg/dL Alkaline Phosphatase (38-126) U/L C-Reactive Protein (<1.0) mg/dL Total Protein (6.3-8.2) g/dL Albumin (3.5-5.0) g/dL 02/21/22 02/22/22 02/22/22 Range/Units 20:13 06:09 07:14 WBC 12.2 H (3.8-10.6) k/uL RBC 3.09 L (4.30-5.90) m/uL Hgb 9.5 L (13.0-17.5) gm/dL Hct 29.4 L (39.0-53.0) % RDW 16.0 H (11.5-15.5) % Sodium (137-145) mmol/L Chloride (98-107) mmol/L Carbon Dioxide (22-30) mmol/L BUN (9-20) mg/dL Creatinine (0.66-1.25) mg/dL Glucose (74-99) mg/dL POC Glucose (mg/dL) 259 H 162 H (70-110) mg/dL Calcium (8.4-10.2) mg/dL Total Bilirubin (0.2-1.3) mg/dL Alkaline Phosphatase (38-126) U/L C-Reactive Protein (<1.0) mg/dL Total Protein (6.3-8.2) g/dL Albumin (3.5-5.0) g/dL 02/22/22 02/22/22 Range/Units 07:14 11:48 WBC (3.8-10.6) k/uL RBC (4.30-5.90) m/uL Hgb (13.0-17.5) gm/dL Hct (39.0-53.0) % RDW (11.5-15.5) % Sodium 130 L (137-145) mmol/L Chloride 97 L (98-107) mmol/L Carbon Dioxide 20 L (22-30) mmol/L BUN 60 H (9-20) mg/dL Creatinine 7.37 H* (0.66-1.25) mg/dL Glucose 157 H (74-99) mg/dL POC Glucose (mg/dL) 120 H (70-110) mg/dL Calcium 8.0 L (8.4-10.2) mg/dL Total Bilirubin 2.5 H (0.2-1.3) mg/dL Alkaline Phosphatase 291 H (38-126) U/L C-Reactive Protein 16.1 H (<1.0) mg/dL Total Protein 5.2 L (6.3-8.2) g/dL Albumin 2.4 L (3.5-5.0) g/dL Microbiology - Last 24 Hours (Table) 02/16/22 15:20 Anaerobic Culture - Final Paracentesis Fluid 02/16/22 15:20 Gram Stain - Final Paracentesis Fluid Body Fluid Culture - Final 02/15/22 07:39 Blood Culture - Final Blood No Growth after 144 hours Assessment and Plan Plan: Assessment: 1. End-stage renal disease maintained on hemodialysis on Monday schedule. 2. Ascites requiring frequent paracentesis. Last on 02/16/2022 with 4 L drained. 3. Strep bacteremia status post tooth extraction. On antibiotics. ID following. TARIK showed no intracardiac thrombus. 9. Chronic systolic CHF with ejection fraction of 45%. 4. Anemia of chronic kidney disease maintained on Aranesp. 5. Hypertension with chronic kidney disease. Stable. 6. Chronic kidney disease mineral bone disease. 7. Hyponatremia secondary to chronic kidney disease. 8. Metabolic acidosis secondary to chronic kidney disease. Expect improvement postdialysis. Plan: Hemodialysis today. Check phosphorus level.
[2022-02-22 12:47] LABS: Band Neutrophils % 3 %; Eosinophils # (M) 0.12 k/uL (0-0.7); Lymphocytes # (M) 0.85 k/uL (1.0-4.8); Metamyelocytes # (M) 0.37 k/uL (0); Metamyelocytes % 3 %; Monocytes # (M) 0.73 k/uL (0-1.0); Myelocytes # (M) 0.61 k/uL (0); Myelocytes % 5 %; Neutrophils % (M) 77 %; Nucleated Red Blood Cells 0 /100 WBC (0-0); Total Cells Counted 200
[2022-02-22 12:50] LABS: RBC Morphology Normal; Toxic Granulation Present
[2022-02-22] MEDS: AMPICILLIN-SULBACTAM 3 GM in SODIUM CHLORIDE 0.9% 100 ML IVPB SCH (13:05)
--- NOTE | 2022-02-22 13:48 | P.PN ---
Subjective Progress Note Date: 02/22/22 CHIEF COMPLAINT: Dizziness and weakness HISTORY OF PRESENT ILLNESS: Patient is lying in bed comfortably. Patient is complaining of tooth pain. He does report some mild epigastric discomfort. Denies any nausea or vomiting. Currently on a full liquid diet. Afebrile. Patient had TARIK completed yesterday no intracardiac thrombus. WBC is down from 14-12.2 Hgb 9.5 platelets 429 sodium is 1:30 total bili trending down to 2.5 AST ALT have normalized alk phos trending down to 290 Patient seen and examined with Dr. wagoner PHYSICAL EXAM: VITAL SIGNS: Reviewed. GENERAL: Well-developed in no acute distress. HEENT: No sclera icterus. Extraocular movements grossly intact. Moist buccal mucosa. Head is atraumatic, normocephalic. ABDOMEN: Soft. Nondistended. Mild epigastric tenderness. No right upper quadrant tenderness. NEUROLOGIC: Confused ASSESSMENT: 1. Chronic Cholecystitis with sludge noted on both the abdominal ultrasound and MRCP 2. Tooth infection 3. Elevated liver enzymes and total bilirubin 4. Leukocytosis 5. Pancreatitis 6. Abdominal ascites PLAN: -Plan for outpatient laparoscopic cholecystectomy when medically stable -Continue supportive care Physician Employment Interviewer note has been reviewed by physician. Signing provider agrees with the documented findings, assessment, and plan of care. Objective - Vital Signs Vital signs: Vital Signs Temp 97.4 F L 02/22/22 03:40 Pulse 47 L 02/22/22 13:00 Resp 15 02/22/22 11:59 BP 135/62 02/22/22 11:59 Pulse Ox 98 02/22/22 11:59 FiO2 Intake & Output 02/21/22 02/22/22 02/22/22 18:59 06:59 18:59 Intake Total 340 120 Output Total 0 Balance 340 120 Weight 75.5 kg 76 kg Intake: IV 100 Oral 240 120 Output: Urine 0 Other: Voiding Method Bedside Commode Bedside Commode Bedside Commode Diaper Diaper Diaper # Voids 1 0 # Bowel Movements 1 1 0 - Labs CBC & Chem 7: 02/22/22 07:14 02/22/22 07:14 Labs: Abnormal Lab Results - Last 24 Hours (Table) 02/21/22 02/21/22 02/22/22 Range/Units 16:52 20:13 06:09 WBC (3.8-10.6) k/uL RBC (4.30-5.90) m/uL Hgb (13.0-17.5) gm/dL Hct (39.0-53.0) % RDW (11.5-15.5) % Neutrophils # (Manual) (1.3-7.7) k/uL Lymphocytes # (Manual) (1.0-4.8) k/uL Metamyelocytes # (Man) (0) k/uL Myelocytes # (Manual) (0) k/uL Sodium (137-145) mmol/L Chloride (98-107) mmol/L Carbon Dioxide (22-30) mmol/L BUN (9-20) mg/dL Creatinine (0.66-1.25) mg/dL Glucose (74-99) mg/dL POC Glucose (mg/dL) 218 H 259 H 162 H (70-110) mg/dL Calcium (8.4-10.2) mg/dL Total Bilirubin (0.2-1.3) mg/dL Alkaline Phosphatase (38-126) U/L C-Reactive Protein (<1.0) mg/dL Total Protein (6.3-8.2) g/dL Albumin (3.5-5.0) g/dL 02/22/22 02/22/22 02/22/22 Range/Units 07:14 07:14 11:48 WBC 12.2 H (3.8-10.6) k/uL RBC 3.09 L (4.30-5.90) m/uL Hgb 9.5 L (13.0-17.5) gm/dL Hct 29.4 L (39.0-53.0) % RDW 16.0 H (11.5-15.5) % Neutrophils # (Manual) 9.70 H (1.3-7.7) k/uL Lymphocytes # (Manual) 0.85 L (1.0-4.8) k/uL Metamyelocytes # (Man) 0.37 H (0) k/uL Myelocytes # (Manual) 0.61 H (0) k/uL Sodium 130 L (137-145) mmol/L Chloride 97 L (98-107) mmol/L Carbon Dioxide 20 L (22-30) mmol/L BUN 60 H (9-20) mg/dL Creatinine 7.37 H* (0.66-1.25) mg/dL Glucose 157 H (74-99) mg/dL POC Glucose (mg/dL) 120 H (70-110) mg/dL Calcium 8.0 L (8.4-10.2) mg/dL Total Bilirubin 2.5 H (0.2-1.3) mg/dL Alkaline Phosphatase 291 H (38-126) U/L C-Reactive Protein 16.1 H (<1.0) mg/dL Total Protein 5.2 L (6.3-8.2) g/dL Albumin 2.4 L (3.5-5.0) g/dL Microbiology - Last 24 Hours (Table) 02/16/22 15:20 Anaerobic Culture - Final Paracentesis Fluid 02/16/22 15:20 Gram Stain - Final Paracentesis Fluid Body Fluid Culture - Final 02/15/22 07:39 Blood Culture - Final Blood No Growth after 144 hours
[2022-02-22 16:26] LABS: Glucose,Whole Blood 139 mg/dL (70-110)
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
[2022-02-22] MEDS: ASPIRIN 81 MG PO SCH (19:05)
[2022-02-22 19:52] LABS: Glucose,Whole Blood 175 mg/dL (70-110)
[2022-02-22] MEDS: HYDROmorphone 0.5 MG/0.5 ML SYRINGE IVP PRN (21:40)
--- NOTE | 2022-02-22 22:29 | P.PN ---
Subjective Progress Note Date: 02/22/22 Principal diagnosis: bacteremia Patient is a 61-year-old male with a past medical history significant for end-stage renal disease on hemodialysis through the left arm AV fistula patient presenting to the ER 2 days ago on 02/12/2022, patient was noticed to have elevated blood pressure at the dialysis center at the patient advised to go to the hospital patient be complaining of feeling weak since his teeth work done a week before presentation to the hospital , patient was noticed to have streptococcal bacteremia also elevated liver enzymes concern for choledocholit hiasis however MRCP did not show any stones in the CBD he did have a CT of the face with evidence of right lower jaw Osteomyelitis. On today's evaluation that is 02/22/2022, the patient remains to be afebrile, the patient is breathing comfortably on room air, the patient denies chest pain shortness of breath or cough, the patient still complaining of pain to the right lower jaw area and apparently did have more pain and swelling this morning no nausea no vomiting and no diarrhea Objective - Vital Signs Vital signs: Vital Signs Temp 97.4 F L 02/22/22 03:40 Pulse 49 L 02/22/22 09:12 Resp 15 02/22/22 09:10 BP 120/67 02/22/22 09:10 Pulse Ox 98 02/22/22 09:10 FiO2 Intake & Output 02/21/22 02/22/22 02/22/22 18:59 06:59 18:59 Intake Total 340 120 Output Total 0 Balance 340 120 Weight 75.5 kg 76 kg Intake: IV 100 Oral 240 120 Output: Urine 0 Other: Voiding Method Bedside Commode Bedside Commode Bedside Commode Diaper Diaper Diaper # Voids 1 # Bowel Movements 1 1 - Exam GENERAL DESCRIPTION: Middle-aged male lying in bed in no distress HEENT: Right lower jaw did have more swelling and tenderness today RESPIRATORY SYSTEM: Unlabored breathing , decreased breath sounds at bases HEART: S1 S2 regular rate and rhythm , ABDOMEN: Soft , no tenderness EXTREMITIES: No edema feet - Labs CBC & Chem 7: 02/22/22 07:14 02/22/22 07:14 Labs: Abnormal Lab Results - Last 24 Hours (Table) 02/21/22 02/21/22 02/21/22 Range/Units 11:59 12:13 16:52 WBC (3.8-10.6) k/uL RBC (4.30-5.90) m/uL Hgb (13.0-17.5) gm/dL Hct (39.0-53.0) % RDW (11.5-15.5) % Sodium 131 L (137-145) mmol/L Chloride (98-107) mmol/L Carbon Dioxide 17 L (22-30) mmol/L BUN 51 H (9-20) mg/dL Creatinine 5.95 H (0.66-1.25) mg/dL Glucose 120 H (74-99) mg/dL POC Glucose (mg/dL) 127 H 218 H (70-110) mg/dL Calcium 8.3 L (8.4-10.2) mg/dL Total Bilirubin (0.2-1.3) mg/dL Alkaline Phosphatase (38-126) U/L C-Reactive Protein (<1.0) mg/dL Total Protein (6.3-8.2) g/dL Albumin (3.5-5.0) g/dL 02/21/22 02/22/22 02/22/22 Range/Units 20:13 06:09 07:14 WBC 12.2 H (3.8-10.6) k/uL RBC 3.09 L (4.30-5.90) m/uL Hgb 9.5 L (13.0-17.5) gm/dL Hct 29.4 L (39.0-53.0) % RDW 16.0 H (11.5-15.5) % Sodium (137-145) mmol/L Chloride (98-107) mmol/L Carbon Dioxide (22-30) mmol/L BUN (9-20) mg/dL Creatinine (0.66-1.25) mg/dL Glucose (74-99) mg/dL POC Glucose (mg/dL) 259 H 162 H (70-110) mg/dL Calcium (8.4-10.2) mg/dL Total Bilirubin (0.2-1.3) mg/dL Alkaline Phosphatase (38-126) U/L C-Reactive Protein (<1.0) mg/dL Total Protein (6.3-8.2) g/dL Albumin (3.5-5.0) g/dL 02/22/22 Range/Units 07:14 WBC (3.8-10.6) k/uL RBC (4.30-5.90) m/uL Hgb (13.0-17.5) gm/dL Hct (39.0-53.0) % RDW (11.5-15.5) % Sodium 130 L (137-145) mmol/L Chloride 97 L (98-107) mmol/L Carbon Dioxide 20 L (22-30) mmol/L BUN 60 H (9-20) mg/dL Creatinine 7.37 H* (0.66-1.25) mg/dL Glucose 157 H (74-99) mg/dL POC Glucose (mg/dL) (70-110) mg/dL Calcium 8.0 L (8.4-10.2) mg/dL Total Bilirubin 2.5 H (0.2-1.3) mg/dL Alkaline Phosphatase 291 H (38-126) U/L C-Reactive Protein 16.1 H (<1.0) mg/dL Total Protein 5.2 L (6.3-8.2) g/dL Albumin 2.4 L (3.5-5.0) g/dL Microbiology - Last 24 Hours (Table) 02/16/22 15:20 Anaerobic Culture - Final Paracentesis Fluid 02/16/22 15:20 Gram Stain - Final Paracentesis Fluid Body Fluid Culture - Final 02/15/22 07:39 Blood Culture - Final Blood No Growth after 144 hours Assessment and Plan (1) Bacteremia Current Visit: Yes Status: Acute Code(s): R78.81 - BACTEREMIA SNOMED Code(s): 3944267 Plan: 1patient present to hospital with elevated blood pressure now with evidence of gram-positive bacteremia patient did have a recent tooth extraction and has been complaining of pain to the jaw area possible source of his bacteremia patient did have an abnormal ultrasound suspicious for cholecystitis And the patient did have elevated liver enzymes and a question of possible choledocholithiasis and cholangitis however the patient subsequently did have MRCP did not show any evidence of choledocholithiasis. Patient did have abnormal CT of the face concerning for possible osteomyelitis of the jaw 2blood cultures repeat has been negative so far 3patient did have abnormal MRI. Reported by radiologist as possible septic emboli, however the patient is clinically not behaving as the patient cleared his bacteremia very quickly, echocardiogram did show some tricuspid regurgitation but no evidence of any vegetation , patient did have a TARIK completed on 02/21/2022 that was negative for any vegetation 4- patient seemed has slight worsening symptomatology as for his right lower jaw is concerned he will switch him back to Unasyn may need a PICC line and outpatient IV Unasyn on discharge is was discussed with the importer or exporter who is okay with placing a PICC line Time with Patient: Less than 30
[2022-02-23 06:11] LABS: Glucose,Whole Blood 236 mg/dL (70-110)
--- NOTE | 2022-02-23 06:32 | PN ---
PROGRESS NOTE SUBJECTIVE: Mr. Dewey is in sinus rhythm, but has some sinus bradycardia today. He has end-stage renal disease and apparently missed his dialysis that brought him to the hospital. However, he is doing better today. Denies any chest discomfort, shortness of breath. Also has shown some improvement. There was a question of infection. He had a transesophageal echo performed yesterday which revealed no evidence of any thrombus or shunt or vegetation. Ejection fraction is in the 45% range. I am recommending that we decrease the dose of his Coreg from 25 to 12.5 mg b.i.d. PHYSICAL EXAMINATION: VITALS: Stable. NECK: There is JVD of 1 cm. HEART: S1, S2 heard normally. No significant murmurs. LUNGS: Revealed decent air entry. ABDOMEN: Unchanged. LOWER EXTREMITIES: Unchanged. IMPRESSION: 1. Streptococcal bacteremia. 2. There was a questionable septic emboli finding on MRI, but a TARIK echo revealed no significant abnormality. Decreased Coreg, can be discharged, and follow up with Dr. Elder in 2 weeks. MMMERLEL / PRESLEYN: [id number] /
[2022-02-23] MEDS: MIDODRINE 5 MG TAB PO SCH ×2 (06:49→12:52)
[2022-02-23] MEDS: INSULIN ASPART (NovoLOG) 100 UNIT/ML VIAL SQ SCH ×4 (06:49→20:40)
[2022-02-23] MEDS: carvediloL 12.5 MG TAB PO SCH ×2 (06:50→16:48)
[2022-02-23] MEDS: HYDROmorphone 0.5 MG/0.5 ML SYRINGE IVP PRN ×2 (06:52→14:18)
[2022-02-23] MEDS: VELPHORO PO SCH ×3 (07:04→16:15)
[2022-02-23 09:07] LABS: Anisocytosis Slight; HGB 9.6 gm/dL (13.0-17.5); Hypochromasia Slight; MCH 30.2 pg (25.0-35.0); MCHC 32.1 g/dL (31.0-37.0); MCV 94.3 fL (80.0-100.0); Mean Platelet Volume 8.7; Platelet Count 471 k/uL (150-450); RBC 3.18 m/uL (4.30-5.90); RDW 16.2 % (11.5-15.5); WBC 11.2 k/uL (3.8-10.6)
[2022-02-23] MEDS: ASPIRIN 81 MG PO SCH (09:10)
[2022-02-23] MEDS: FAMOTIDINE 20 MG TAB PO SCH (09:10)
[2022-02-23] MEDS: traMADol 50 MG TAB PO SCH ×4 (09:10→23:24)
[2022-02-23] MEDS: HEPARIN SODIUM,PORCINE/PF 5,000 UNIT/0.5 ML SYRINGE SQ SCH ×2 (09:10→20:40)
[2022-02-23] MEDS: CHLORHEXIDINE GLUCONATE 15 ML CUP MUCOUS MEM SCH ×2 (09:10→20:41)
[2022-02-23] MEDS: AMPICILLIN-SULBACTAM 3 GM in SODIUM CHLORIDE 0.9% 100 ML IVPB SCH (09:11)
[2022-02-23 09:18] LABS: Albumin 2.3 g/dL (3.5-5.0); Calcium 7.9 mg/dL (8.4-10.2); Potassium 4.3 mmol/L (3.5-5.1); Total Bilirubin 2.1 mg/dL (0.2-1.3); Total Protein 5.1 g/dL (6.3-8.2)
[2022-02-23 09:48] LABS: Band Neutrophils % 1 %; Eosinophils # (M) 0.45 k/uL (0-0.7); Metamyelocytes # (M) 0.22 k/uL (0); Metamyelocytes % 2 %; Monocytes # (M) 1.01 k/uL (0-1.0); Myelocytes # (M) 0.22 k/uL (0); Myelocytes % 2 %; Neutrophils % (M) 76 %; Nucleated Red Blood Cells 0 /100 WBC (0-0); Total Cells Counted 200
[2022-02-23 11:48] LABS: Glucose,Whole Blood 113 mg/dL (70-110)
--- NOTE | 2022-02-23 12:46 | P.PN ---
Subjective Progress Note Date: 02/23/22 CHIEF COMPLAINT: Dizziness and weakness HISTORY OF PRESENT ILLNESS: Patient is lying in bed comfortably. Patient is complaining of tooth pain. Patient denies any abdominal pain. Denies any nausea or vomiting. He is asking about advancing diet. Afebrile. WBC is down from 12.2-11.2 Hgb is 9.6 platelet 471 sodium 134 potassium is 4.3 creatinine 5.17 PHYSICAL EXAM: VITAL SIGNS: Reviewed. GENERAL: Well-developed in no acute distress. HEENT: No sclera icterus. Extraocular movements grossly intact. Moist buccal mucosa. Head is atraumatic, normocephalic. ABDOMEN: Soft. Nondistended. Mild epigastric tenderness. No right upper quadrant tenderness. NEUROLOGIC: Confused ASSESSMENT: 1. Chronic Cholecystitis with sludge noted on both the abdominal ultrasound and MRCP 2. Jaw infection 3. Elevated liver enzymes and total bilirubin trending downwards 4. Leukocytosis 5. Pancreatitis 6. Abdominal ascites PLAN: -Plan for outpatient laparoscopic cholecystectomy when medically stable -Continue supportive care -Advance diet to pured Physician Fisher Line note has been reviewed by physician. Signing provider agrees with the documented findings, assessment, and plan of care. Objective - Vital Signs Vital signs: Vital Signs Temp 98.2 F 02/23/22 03:31 Pulse 51 L 02/23/22 09:06 Resp 15 02/23/22 09:06 BP 136/65 02/23/22 09:06 Pulse Ox 98 02/23/22 09:06 FiO2 Intake & Output 02/22/22 02/23/22 02/23/22 18:59 06:59 18:59 Intake Total 120 750 Output Total 2400 Balance 120 -1650 Weight 74.4 kg Intake: Oral 120 350 Hemodialysis 400 Output: Hemodialysis 2400 Other: Voiding Method Bedside Commode Bedside Commode Bedside Commode Diaper Diaper Diaper # Voids 0 0 # Bowel Movements 0 0 - Labs CBC & Chem 7: 02/23/22 08:34 02/23/22 08:34 Labs: Abnormal Lab Results - Last 24 Hours (Table) 02/22/22 02/22/22 02/22/22 Range/Units 07:14 07:14 11:48 WBC (3.8-10.6) k/uL RBC (4.30-5.90) m/uL Hgb (13.0-17.5) gm/dL Hct (39.0-53.0) % RDW (11.5-15.5) % Plt Count (150-450) k/uL Neutrophils # (Manual) 9.70 H (1.3-7.7) k/uL Lymphocytes # (Manual) 0.85 L (1.0-4.8) k/uL Monocytes # (Manual) (0-1.0) k/uL Metamyelocytes # (Man) 0.37 H (0) k/uL Myelocytes # (Manual) 0.61 H (0) k/uL Sodium (137-145) mmol/L Chloride (98-107) mmol/L BUN (9-20) mg/dL Creatinine (0.66-1.25) mg/dL Glucose (74-99) mg/dL POC Glucose (mg/dL) 120 H (70-110) mg/dL Calcium (8.4-10.2) mg/dL Phosphorus 9.0 H* (2.5-4.5) mg/dL Total Bilirubin (0.2-1.3) mg/dL Alkaline Phosphatase (38-126) U/L Total Protein (6.3-8.2) g/dL Albumin (3.5-5.0) g/dL 02/22/22 02/22/22 02/23/22 Range/Units 16:25 19:51 06:09 WBC (3.8-10.6) k/uL RBC (4.30-5.90) m/uL Hgb (13.0-17.5) gm/dL Hct (39.0-53.0) % RDW (11.5-15.5) % Plt Count (150-450) k/uL Neutrophils # (Manual) (1.3-7.7) k/uL Lymphocytes # (Manual) (1.0-4.8) k/uL Monocytes # (Manual) (0-1.0) k/uL Metamyelocytes # (Man) (0) k/uL Myelocytes # (Manual) (0) k/uL Sodium (137-145) mmol/L Chloride (98-107) mmol/L BUN (9-20) mg/dL Creatinine (0.66-1.25) mg/dL Glucose (74-99) mg/dL POC Glucose (mg/dL) 139 H 175 H 236 H (70-110) mg/dL Calcium (8.4-10.2) mg/dL Phosphorus (2.5-4.5) mg/dL Total Bilirubin (0.2-1.3) mg/dL Alkaline Phosphatase (38-126) U/L Total Protein (6.3-8.2) g/dL Albumin (3.5-5.0) g/dL 02/23/22 02/23/22 Range/Units 08:34 08:34 WBC 11.2 H (3.8-10.6) k/uL RBC 3.18 L (4.30-5.90) m/uL Hgb 9.6 L (13.0-17.5) gm/dL Hct 30.0 L (39.0-53.0) % RDW 16.2 H (11.5-15.5) % Plt Count 471 H (150-450) k/uL Neutrophils # (Manual) 8.60 H (1.3-7.7) k/uL Lymphocytes # (Manual) 0.90 L (1.0-4.8) k/uL Monocytes # (Manual) 1.01 H (0-1.0) k/uL Metamyelocytes # (Man) 0.22 H (0) k/uL Myelocytes # (Manual) 0.22 H (0) k/uL Sodium 134 L (137-145) mmol/L Chloride 97 L (98-107) mmol/L BUN 40 H (9-20) mg/dL Creatinine 5.17 H (0.66-1.25) mg/dL Glucose 143 H (74-99) mg/dL POC Glucose (mg/dL) (70-110) mg/dL Calcium 7.9 L (8.4-10.2) mg/dL Phosphorus (2.5-4.5) mg/dL Total Bilirubin 2.1 H (0.2-1.3) mg/dL Alkaline Phosphatase 275 H (38-126) U/L Total Protein 5.1 L (6.3-8.2) g/dL Albumin 2.3 L (3.5-5.0) g/dL
--- NOTE | 2022-02-23 13:09 | P.PN ---
Subjective Patient is seen in follow-up for end-stage renal disease. He is maintained on hemodialysis on Monday schedule. Tolerated 2.4 L O2 saturation yesterday. States tooth pain is better. Resting in bed. No active complaints. Vital signs are stable. General: Awake. No acute distress. HEENT: Head exam is unremarkable. LUNGS: Breath sounds decreased. HEART: Rate and Rhythm are regular. ABDOMEN: Soft, no distention. EXTREMITITES: No edema. Objective - Vital Signs Vital signs: Vital Signs Temp 98.2 F 02/23/22 03:31 Pulse 54 L 02/23/22 12:53 Resp 17 02/23/22 12:53 BP 137/65 02/23/22 12:53 Pulse Ox 98 02/23/22 12:53 FiO2 Intake & Output 02/22/22 02/23/22 02/23/22 18:59 06:59 18:59 Intake Total 120 750 Output Total 2400 Balance 120 -1650 Weight 74.4 kg Intake: Oral 120 350 Hemodialysis 400 Output: Hemodialysis 2400 Other: Voiding Method Bedside Commode Bedside Commode Bedside Commode Diaper Diaper Diaper # Voids 0 0 # Bowel Movements 0 0 - Labs CBC & Chem 7: 02/23/22 08:34 02/23/22 08:34 Labs: Abnormal Lab Results - Last 24 Hours (Table) 02/22/22 02/22/22 02/22/22 Range/Units 07:14 16:25 19:51 WBC (3.8-10.6) k/uL RBC (4.30-5.90) m/uL Hgb (13.0-17.5) gm/dL Hct (39.0-53.0) % RDW (11.5-15.5) % Plt Count (150-450) k/uL Neutrophils # (Manual) (1.3-7.7) k/uL Lymphocytes # (Manual) (1.0-4.8) k/uL Monocytes # (Manual) (0-1.0) k/uL Metamyelocytes # (Man) (0) k/uL Myelocytes # (Manual) (0) k/uL Sodium (137-145) mmol/L Chloride (98-107) mmol/L BUN (9-20) mg/dL Creatinine (0.66-1.25) mg/dL Glucose (74-99) mg/dL POC Glucose (mg/dL) 139 H 175 H (70-110) mg/dL Calcium (8.4-10.2) mg/dL Phosphorus 9.0 H* (2.5-4.5) mg/dL Total Bilirubin (0.2-1.3) mg/dL Alkaline Phosphatase (38-126) U/L Total Protein (6.3-8.2) g/dL Albumin (3.5-5.0) g/dL 02/23/22 02/23/22 02/23/22 Range/Units 06:09 08:34 08:34 WBC 11.2 H (3.8-10.6) k/uL RBC 3.18 L (4.30-5.90) m/uL Hgb 9.6 L (13.0-17.5) gm/dL Hct 30.0 L (39.0-53.0) % RDW 16.2 H (11.5-15.5) % Plt Count 471 H (150-450) k/uL Neutrophils # (Manual) 8.60 H (1.3-7.7) k/uL Lymphocytes # (Manual) 0.90 L (1.0-4.8) k/uL Monocytes # (Manual) 1.01 H (0-1.0) k/uL Metamyelocytes # (Man) 0.22 H (0) k/uL Myelocytes # (Manual) 0.22 H (0) k/uL Sodium 134 L (137-145) mmol/L Chloride 97 L (98-107) mmol/L BUN 40 H (9-20) mg/dL Creatinine 5.17 H (0.66-1.25) mg/dL Glucose 143 H (74-99) mg/dL POC Glucose (mg/dL) 236 H (70-110) mg/dL Calcium 7.9 L (8.4-10.2) mg/dL Phosphorus (2.5-4.5) mg/dL Total Bilirubin 2.1 H (0.2-1.3) mg/dL Alkaline Phosphatase 275 H (38-126) U/L Total Protein 5.1 L (6.3-8.2) g/dL Albumin 2.3 L (3.5-5.0) g/dL 02/23/22 Range/Units 11:46 WBC (3.8-10.6) k/uL RBC (4.30-5.90) m/uL Hgb (13.0-17.5) gm/dL Hct (39.0-53.0) % RDW (11.5-15.5) % Plt Count (150-450) k/uL Neutrophils # (Manual) (1.3-7.7) k/uL Lymphocytes # (Manual) (1.0-4.8) k/uL Monocytes # (Manual) (0-1.0) k/uL Metamyelocytes # (Man) (0) k/uL Myelocytes # (Manual) (0) k/uL Sodium (137-145) mmol/L Chloride (98-107) mmol/L BUN (9-20) mg/dL Creatinine (0.66-1.25) mg/dL Glucose (74-99) mg/dL POC Glucose (mg/dL) 113 H (70-110) mg/dL Calcium (8.4-10.2) mg/dL Phosphorus (2.5-4.5) mg/dL Total Bilirubin (0.2-1.3) mg/dL Alkaline Phosphatase (38-126) U/L Total Protein (6.3-8.2) g/dL Albumin (3.5-5.0) g/dL Assessment and Plan Plan: Assessment: 1. End-stage renal disease maintained on hemodialysis on Monday schedule. 2. Ascites requiring frequent paracentesis. Last on 02/16/2022 with 4 L drained. 3. Strep bacteremia status post tooth extraction. On antibiotics. ID following. TARIK showed no intracardiac thrombus. 4. Anemia of chronic kidney disease maintained on Aranesp. 5. Hypertension with chronic kidney disease. Stable. 6. Chronic kidney disease mineral bone disease. 7. Hyponatremia secondary to chronic kidney disease. Improved. 8. Metabolic acidosis secondary to chronic kidney disease. Improved postdialysis. 9. Chronic systolic CHF with ejection fraction of 45%. Plan: Hemodialysis tomorrow. Phosphate binders to be resumed with diet. Stop midodrine.
--- NOTE | 2022-02-23 14:25 | P.PN ---
Subjective Progress Note Date: 02/23/22 Principal diagnosis: bacteremia Patient is a 61-year-old male with a past medical history significant for end-stage renal disease on hemodialysis through the left arm AV fistula patient presenting to the ER 2 days ago on 02/12/2022, patient was noticed to have elevated blood pressure at the dialysis center the patient advised to go to the hospital patient be complaining of feeling weak since his teeth work done a week before presentation to the hospital , patient was noticed to have streptococcal bacteremia also elevated liver enzymes concern for choledocholithiasis however MRCP did not show any stones in the CBD he did have a CT of the face with evidence of right lower jaw Osteomyelitis. On today's evaluation that is 02/23/2022, the patient continues to be afebrile, the patient is breathing comfortably on room air, the patient denies chest pain shortness of breath or cough, the patient pain to the right lower jaw area has slightly decreased in intensity, patient denies nausea no vomiting and no diarrhea Objective - Vital Signs Vital signs: Vital Signs Temp 98.2 F 02/23/22 03:31 Pulse 51 L 02/23/22 09:06 Resp 15 02/23/22 09:06 BP 136/65 02/23/22 09:06 Pulse Ox 98 02/23/22 09:06 FiO2 Intake & Output 02/22/22 02/23/22 02/23/22 18:59 06:59 18:59 Intake Total 120 750 Output Total 2400 Balance 120 -1650 Weight 74.4 kg Intake: Oral 120 350 Hemodialysis 400 Output: Hemodialysis 2400 Other: Voiding Method Bedside Commode Bedside Commode Bedside Commode Diaper Diaper Diaper # Voids 0 0 # Bowel Movements 0 0 - Exam GENERAL DESCRIPTION: Middle-aged male lying in bed in no distress HEENT: Right lower jaw did have more swelling and tenderness today RESPIRATORY SYSTEM: Unlabored breathing , decreased breath sounds at bases HEART: S1 S2 regular rate and rhythm , ABDOMEN: Soft , no tenderness EXTREMITIES: No edema feet - Labs CBC & Chem 7: 02/23/22 08:34 02/23/22 08:34 Labs: Abnormal Lab Results - Last 24 Hours (Table) 02/22/22 02/22/22 02/22/22 Range/Units 07:14 07:14 11:48 WBC (3.8-10.6) k/uL RBC (4.30-5.90) m/uL Hgb (13.0-17.5) gm/dL Hct (39.0-53.0) % RDW (11.5-15.5) % Plt Count (150-450) k/uL Neutrophils # (Manual) 9.70 H (1.3-7.7) k/uL Lymphocytes # (Manual) 0.85 L (1.0-4.8) k/uL Monocytes # (Manual) (0-1.0) k/uL Metamyelocytes # (Man) 0.37 H (0) k/uL Myelocytes # (Manual) 0.61 H (0) k/uL Sodium (137-145) mmol/L Chloride (98-107) mmol/L BUN (9-20) mg/dL Creatinine (0.66-1.25) mg/dL Glucose (74-99) mg/dL POC Glucose (mg/dL) 120 H (70-110) mg/dL Calcium (8.4-10.2) mg/dL Phosphorus 9.0 H* (2.5-4.5) mg/dL Total Bilirubin (0.2-1.3) mg/dL Alkaline Phosphatase (38-126) U/L Total Protein (6.3-8.2) g/dL Albumin (3.5-5.0) g/dL 02/22/22 02/22/22 02/23/22 Range/Units 16:25 19:51 06:09 WBC (3.8-10.6) k/uL RBC (4.30-5.90) m/uL Hgb (13.0-17.5) gm/dL Hct (39.0-53.0) % RDW (11.5-15.5) % Plt Count (150-450) k/uL Neutrophils # (Manual) (1.3-7.7) k/uL Lymphocytes # (Manual) (1.0-4.8) k/uL Monocytes # (Manual) (0-1.0) k/uL Metamyelocytes # (Man) (0) k/uL Myelocytes # (Manual) (0) k/uL Sodium (137-145) mmol/L Chloride (98-107) mmol/L BUN (9-20) mg/dL Creatinine (0.66-1.25) mg/dL Glucose (74-99) mg/dL POC Glucose (mg/dL) 139 H 175 H 236 H (70-110) mg/dL Calcium (8.4-10.2) mg/dL Phosphorus (2.5-4.5) mg/dL Total Bilirubin (0.2-1.3) mg/dL Alkaline Phosphatase (38-126) U/L Total Protein (6.3-8.2) g/dL Albumin (3.5-5.0) g/dL 02/23/22 02/23/22 Range/Units 08:34 08:34 WBC 11.2 H (3.8-10.6) k/uL RBC 3.18 L (4.30-5.90) m/uL Hgb 9.6 L (13.0-17.5) gm/dL Hct 30.0 L (39.0-53.0) % RDW 16.2 H (11.5-15.5) % Plt Count 471 H (150-450) k/uL Neutrophils # (Manual) 8.60 H (1.3-7.7) k/uL Lymphocytes # (Manual) 0.90 L (1.0-4.8) k/uL Monocytes # (Manual) 1.01 H (0-1.0) k/uL Metamyelocytes # (Man) 0.22 H (0) k/uL Myelocytes # (Manual) 0.22 H (0) k/uL Sodium 134 L (137-145) mmol/L Chloride 97 L (98-107) mmol/L BUN 40 H (9-20) mg/dL Creatinine 5.17 H (0.66-1.25) mg/dL Glucose 143 H (74-99) mg/dL POC Glucose (mg/dL) (70-110) mg/dL Calcium 7.9 L (8.4-10.2) mg/dL Phosphorus (2.5-4.5) mg/dL Total Bilirubin 2.1 H (0.2-1.3) mg/dL Alkaline Phosphatase 275 H (38-126) U/L Total Protein 5.1 L (6.3-8.2) g/dL Albumin 2.3 L (3.5-5.0) g/dL Assessment and Plan () Bacteremia Current Visit: Yes Status: Acute Code(s): R78.81 - BACTEREMIA SNOMED Code(s): 5386555 Plan: 1patient present to hospital with elevated blood pressure now with evidence of gram-positive bacteremia patient did have a recent tooth extraction and has been complaining of pain to the jaw area possible source of his bacteremia patient did have an abnormal ultrasound suspicious for cholecystitis And the patient did have elevated liver enzymes and a question of possible choledocholithiasis and cholangitis however the patient subsequently did have MRCP did not show any evidence of choledocholithiasis. Patient did have abnormal CT of the face concerning for possible osteomyelitis of the jaw 2blood cultures repeat has been negative so far 3patient did have abnormal MRI. Reported by radiologist as possible septic emboli, however the patient is clinically not behaving as the patient cleared his bacteremia very quickly, echocardiogram did show some tricuspid regurgitation but no evidence of any vegetation , patient did have a TARIK completed on 02/21/2022 that was negative for any vegetation 4- patient shown slight clinical improvement compared to yesterday he will continue with the Unasyn PICC line and outpatient IV Unasyn 6 weeks Time with Patient: Less than 30
[2022-02-23 16:38] LABS: Glucose,Whole Blood 239 mg/dL (70-110)
[2022-02-23 20:07] LABS: Glucose,Whole Blood 174 mg/dL (70-110)
[2022-02-24] MEDS: HYDROmorphone 0.5 MG/0.5 ML SYRINGE IVP PRN (04:32)
[2022-02-24] MEDS: VELPHORO PO SCH ×2 (05:54→09:23)
[2022-02-24 06:07] LABS: Glucose,Whole Blood 200 mg/dL (70-110)
[2022-02-24] MEDS: INSULIN ASPART (NovoLOG) 100 UNIT/ML VIAL SQ SCH ×4 (06:19→21:07)
--- NOTE | 2022-02-24 08:13 | P.PN ---
Subjective Progress Note Date: 02/20/22 Patient was 61-year-old male came in with complaints of tiredness weakness drowsiness. Patient has been constipated as well. Patient was given Tylenol 3 after he is a dental procedure patient pain is not bad at this time. Patient the blood pressure is extremely low was given IV fluids in ER patient is Monday and Monday hemodialysis schedule a patient doesn't have a short is a doesn't have any pulmonary edema on the chest x-ray because of which are hemanalysis be is being held at this time and nephrology's recording cautious hydration because of his hypotension. Patient's sodium is also low at 134. Patient appears to have toxicity from codeine and decreased excretion because of renal dysfunction. Patient appears bit encephalopathic 02/13/2022 Patient is evaluated today on medical floor. He is confused and drowsy. Nursing reports increased confusion. Blood pressure continues to run low in the high 90s. Remains afebrile. Sinus bradycardia on the heart monitor. He is receiving IV normal saline at 75 mls per hour. Plan per nephrology is to undergo hemodialysis today. Patient does have increased abdominal distention today, has positive bowel sounds there is no focal tenderness noted on exam. AST and ALT are increased. He did have lactic acidosis on admission as well. He does have consistent leukocytosis today 27.4. Blood cultures are currently pending at this time. Creatinine shows worsening renal function. He has not had any urine output per patient he does make some urine. He reports that bowels are moving. Will check a procalcitonin level and if elevated add empiric antibiotics and consult infectious disease. 02/14/2022 Patient evaluated on medical floor. He continues to be drowsy, he is arousable. Speech is slurred. He does have right facial droop today unclear if this is secondary to mild right facial swelling there is some tenderness to touch. No focal weakness noted however he has significant generalized weakness. Procalcitonin level came back yesterday at >100 and he was started on IV cefepime, blood cultures came back positive last night gram positive, streptococcus species. Infectious disease on consult and IV vancomycin has been added. Liver enzymes and bili remain elevated and abdominal ultrasound was done which shows gallbladder with sludge possible acute cholecystitis. Lipase is elevated at 5815. Patient is scheduled for MRCP to evaluated for choledocholelisthiasis. White count today 22.40, hgb 9.4, sodium 136, BUN 51.3, creatinine 5.7 today. Glucose in the 100s. 02/15/2022 Patient evaluated on step down unit. Negative brain CT. Neurology work up in place. He is more awake today alert x 1 to 2. He is undergoing hemodialysis t [facility]. Blood cultures showing alpha hemolytic streptococcus. Patient had MRCP today, surgery following and feel elevated enzymes secondary to acute pancreatitis. 02/16/2022 Patient is evaluated today on step down unit. He is more awake and alert, currently alert x 2 to 3. He continues to be drowsy. Continues with right sided facial droop, no focal weakness noted. Patient had MRI completed today showing scattered bilateral punctuate white matter changes compatible with acute ischemic changes. Possibly from septic emboli. Possibly right mastoiditis. He does complain of some pain and numbness to the face adjacent to where the tooth was extracted on his right upper jaw. Dr. Alcaraz has been consulted for further evaluation of this. Blood cultures showing alpha hemolytic streptococcus. Infectious disease following cultures, on IV unasyn. Echocardiogram has been ordered to evaluate for endocarditis. Case discussed with general surgery, MRCP has been completed there is mild extrahepatic duct dilation with the CBD measuring up to 8mm with no definitive filling defect, stricture or obstructing mass lesion noted within the limitations of exam. There is mild gallbladder wall thickening suggestive of gallbladder sludge. Patient has hepatosplenomegaly with iron deposition. Moderate volume ascites. White count is 18.1 today, hemoglobin 9.4, neutrophils 14.8. Sodium 133 today, potassium 2.4. Creatinine 3.76. Bilirubin continues to elevate up to 6.3 he does appear more jaundice today. Liver enzymes are improving overall. Lipase 1394. He remains afebrile, heart rate 54, blood pressure 120/65, 97% on room air. 02/17/2022 Patient is evaluated today resting in bed more awake and alert. Denies pain. Status post paracentesis with 4L of fluid off. Has standing over for biweekly paracentesis. Echocardiogram has been completed showing normal LV systolic function with moderate pulmonary hypertension and also moderate to severe tricuspid regurgitation. Cardiology has been consulted for possible TARIK. General surgery has evaluated the patient today and recommending possible laproscopic cholecystectomy secondary to chronic cholecystitis with sludge pending improvement in his medical condition. IV unasyn can cause biliary stasis this was discussed with ID consultation and antibiotics have been changed to ceftriaxone and repeat labs tomorrow. He is being dialyzed today. Maxillary facial CT is pending at this time. Remains afebrile, heart rate 51, blood pressure 122/60, 95% room air. Labs today showing white count 16.3, hgb 9.0. Sodium 134, potassium 4.0, Although bilirubin is slightly up today at 6.6, AST/ALT and alk phos have improved. CRP 20.5. Lipase 1015. Lipid panel is significantly abnormal showing triglyceride level 317, total cholesterol 209, LDL 133, HDL 63. 02/18/2022 Patient is currently resting in bed. Awake alert but seems to be confused and lethargic. Patient has been afebrile. No complaints of chest pain or worsening shortness of breath. No nausea vomiting abdominal pain and diarrhea. Blood cultures showed all for hemolytic streptococcus. Patient remains on antibiotics in the form of ceftriaxone. Patient was seen by cardiology due to bacteremia and possible TARIK. MRI brain done on 02/16/2022 showed scattered bilateral cerebral punctate white matter changes compatible with acute ischemic changes best visualized on diffuse weighted imaging. Consider septic emboli within the differential. Clinical correlation for right mastoiditis. Patient is otherwise scheduled for hemodialysis TTS. Next hemodialysis is tomorrow. 02/19/2022 Patient's condition remains the same. Awake alert but seems lethargic. No facial droop noted. No complains of nausea vomiting. Patient has been afebrile. Repeat blood cultures have been negative. Patient is being continued on antibiotics the form of ceftriaxone. Discussed with neurosurgery and recommending debridement of right mastoiditis once medically stable. Cardiology is planning for TARIK on Monday if needed. Laboratory data showed WBC 15.1 hemoglobin 9.5 and platelets 252 Sodium 133 potassium 3.9 bicarb is 21 BUN 47 creatinine 5.39, AST 48 DT 8 alk phos 321 and albumin 2.3. Blood sugar is 119. 02/20/2022 Patient is currently lying in bed. She is willing confused. Somewhat weak but denies any complaints of cough or sputum production. Afebrile. No nausea vomiting abdominal pain or diarrhea. Patient was dialyzed yesterday. Patient does have poor appetite. Laboratory pressure WBC 14.0 hemoglobin 9.4 and platelets 300 Sodium 133 potassium 4.3 chloride 99 bicarb is 22 BUN 35 creatinine 4.17 and CRP level is 8.9 Review of Systems Constitutional: Reports fatigue, denied any fever. Cardio vascular: denied any chest pain, palpitations Gastrointestinal: Denies abdominal pain today, no nausea vomiting or diarrhea noted. Pulmonary: Denied any shortness of breath cough Neurologic: Improved right facial droop. All inpatient medications were reviewed and appropriate changes in these medications as dictated in the interval history and assessment and plan. PHYSICAL EXAMINATION: GENERAL: The patient is drowsy sleepy oriented 2, not in any acute distress. Well developed, well nourished. Pale. HEENT: Pupils are round and equally reacting to light. EOMI. No scleral icterus. No conjunctival pallor. Normocephalic, atraumatic. No pharyngeal erythema. No thyromegaly. He has Molars on the right upper jaw have been extracted. No evid ence of abscess at the gumline on basic exam. Malodorous breath. CARDIOVASCULAR: S1 and S2 present. No murmurs, rubs, or gallops. PULMONARY: Chest is clear to auscultation, no wheezing or crackles. ABDOMEN: Soft, notenderness noted, nondistended, normoactive bowel sounds. No palpable organomegaly. MUSCULOSKELETAL: No joint swelling or deformity. EXTREMITIES: No cyanosis, clubbing, or pedal edema. NEUROLOGICAL: Diffuse generalized weakness. drowsy. right facial droop continues. SKIN: No rashes. Jaundice. Assessment and plan Assessment -Acute ischemic stroke there are multiple small foci over bilateral hemisphere noted on MRI, concern for emboli and also septic emboli. Cardiology is planning for TARIK on Monday.. -Altered mental status secondary toxic metabolic encephalopathy secondary to recent opiate use, and sepsis, there is also concern for stroke.. -Streptococcus bacteremia . Repeat blood cultures negative. -Sepsis present on admission patient has significant leukocytosis, had dental work done recently with evidence of right mastoiditis on MRI, source is possibly recent dental tooth extraction vs. gallbladder -Elevated transaminases with elevated bilirubin secondary to pancreatitis with elevated lipase there is also evidence of cholecystitis with sludge. -Lactic acidosis on admission, normalized -Volume overload patient missed hemodialysis secondary to hypotension and dizziness[place] [address] - improving -ESRD on hemodialysis. TTS., initially hypotensive, blood pressure has improved. -Recurrent ascites with frequent paracentesis s/p paracentesis on 02/16 with 4L of fluid off -Mild troponin elevation secondary to renal disease -hyponatremia -Gastroesophageal reflux disease DVT prophylaxis: Subcutaneous heparin GI prophylaxis: IV pepcid Plan Avoid use of opiates Antibiotics changed to ceftriaxone. ID is on board. Hemodialysis as per schedule on TTS. Cardiology consultation for possible TARIK Pending oral surgeon recommendations and also Facial/maxillary CT Possible laproscopic cholecystectomy when medically stable Clear liquid diet Monitor labs closely and repeat in AM. Objective - Vital Signs Vital signs: Vital Signs Temp 97.6 F 02/20/22 20:00 Pulse 51 L 02/20/22 20:00 Resp 18 02/20/22 20:00 BP 116/67 02/20/22 20:00 Pulse Ox 99 02/20/22 20:00 FiO2 Intake & Output 02/20/22 02/20/22 02/21/22 06:59 18:59 06:59 Intake Total 100 240 240 Output Total 0 0 Balance 100 240 240 Weight 75.5 kg Intake: Intake, IV Titration 100 Amount cefTRIAXone 2 gm In 100 Sodium Chloride 0.9% 50 ml @ 100 mls/hr IVPB Q24H [facility] Rx#:[id number] Oral 0 240 240 Output: Urine 0 0 Other: Voiding Method Diaper Diaper # Voids 0 0 # Bowel Movements 1 1 - Labs CBC & Chem 7: 02/23/22 08:34 02/23/22 08:34 Labs: Abnormal Lab Results - Last 24 Hours (Table) 02/20/22 02/20/22 02/20/22 Range/Units 05:56 05:56 05:56 WBC 14.0 H (3.8-10.6) k/uL RBC 3.08 L (4.30-5.90) m/uL Hgb 9.4 L (13.0-17.5) gm/dL Hct 29.5 L (39.0-53.0) % RDW 16.2 H (11.5-15.5) % Neutrophils # (Manual) 11.20 H (1.3-7.7) k/uL Lymphocytes # (Manual) 0.84 L (1.0-4.8) k/uL Metamyelocytes # (Man) 0.70 H (0) k/uL Myelocytes # (Manual) 0.28 H (0) k/uL Sodium 133 L (137-145) mmol/L BUN 35 H (9-20) mg/dL Creatinine 4.17 H (0.66-1.25) mg/dL Glucose 206 H (74-99) mg/dL POC Glucose (mg/dL) (70-110) mg/dL Calcium 8.1 L (8.4-10.2) mg/dL Iron 39 L (65-175) ug/dL TIBC 136 L (228-460) ug/dL Transferrin 97.2 L (204.0-354.0) mg/dL Total Bilirubin 3.4 H (0.2-1.3) mg/dL ALT 70 H (4-49) U/L Alkaline Phosphatase 326 H (38-126) U/L Total Protein 5.3 L (6.3-8.2) g/dL Albumin 2.5 L (3.5-5.0) g/dL 02/20/22 02/20/22 02/20/22 Range/Units 06:31 12:50 17:04 WBC (3.8-10.6) k/uL RBC (4.30-5.90) m/uL Hgb (13.0-17.5) gm/dL Hct (39.0-53.0) % RDW (11.5-15.5) % Neutrophils # (Manual) (1.3-7.7) k/uL Lymphocytes # (Manual) (1.0-4.8) k/uL Metamyelocytes # (Man) (0) k/uL Myelocytes # (Manual) (0) k/uL Sodium (137-145) mmol/L BUN (9-20) mg/dL Creatinine (0.66-1.25) mg/dL Glucose (74-99) mg/dL POC Glucose (mg/dL) 226 H 153 H 172 H (70-110) mg/dL Calcium (8.4-10.2) mg/dL Iron (65-175) ug/dL TIBC (228-460) ug/dL Transferrin (204.0-354.0) mg/dL Total Bilirubin (0.2-1.3) mg/dL ALT (4-49) U/L Alkaline Phosphatase (38-126) U/L Total Protein (6.3-8.2) g/dL Albumin (3.5-5.0) g/dL 02/20/22 Range/Units 19:51 WBC (3.8-10.6) k/uL RBC (4.30-5.90) m/uL Hgb (13.0-17.5) gm/dL Hct (39.0-53.0) % RDW (11.5-15.5) % Neutrophils # (Manual) (1.3-7.7) k/uL Lymphocytes # (Manual) (1.0-4.8) k/uL Metamyelocytes # (Man) (0) k/uL Myelocytes # (Manual) (0) k/uL Sodium (137-145) mmol/L BUN (9-20) mg/dL Creatinine (0.66-1.25) mg/dL Glucose (74-99) mg/dL POC Glucose (mg/dL) 131 H (70-110) mg/dL Calcium (8.4-10.2) mg/dL Iron (65-175) ug/dL TIBC (228-460) ug/dL Transferrin (204.0-354.0) mg/dL Total Bilirubin (0.2-1.3) mg/dL ALT (4-49) U/L Alkaline Phosphatase (38-126) U/L Total Protein (6.3-8.2) g/dL Albumin (3.5-5.0) g/dL Microbiology - Last 24 Hours (Table) 02/14/22 08:05 Blood Culture - Final Blood No Growth after 144 hours 02/15/22 07:39 Blood Culture - Preliminary Blood No Growth after 120 hours 02/16/22 15:20 Gram Stain - Preliminary Paracentesis Fluid Body Fluid Culture - Preliminary
--- NOTE | 2022-02-24 08:16 | P.PN ---
Subjective Progress Note Date: 02/21/22 Patient was 61-year-old male came in with complaints of tiredness weakness drowsiness. Patient has been constipated as well. Patient was given Tylenol 3 after he is a dental procedure patient pain is not bad at this time. Patient the blood pressure is extremely low was given IV fluids in ER patient is Monday and Monday hemodialysis schedule a patient doesn't have a short is a doesn't have any pulmonary edema on the chest x-ray because of which are hemanalysis be is being held at this time and nephrology's recording cautious hydration because of his hypotension. Patient's sodium is also low at 134. Patient appears to have toxicity from codeine and decreased excretion because of renal dysfunction. Patient appears bit encephalopathic 02/13/2022 Patient is evaluated today on medical floor. He is confused and drowsy. Nursing reports increased confusion. Blood pressure continues to run low in the high 90s. Remains afebrile. Sinus bradycardia on the heart monitor. He is receiving IV normal saline at 75 mls per hour. Plan per nephrology is to undergo hemodialysis today. Patient does have increased abdominal distention today, has positive bowel sounds there is no focal tenderness noted on exam. AST and ALT are increased. He did have lactic acidosis on admission as well. He does have consistent leukocytosis today 27.4. Blood cultures are currently pending at this time. Creatinine shows worsening renal function. He has not had any urine output per patient he does make some urine. He reports that bowels are moving. Will check a procalcitonin level and if elevated add empiric antibiotics and consult infectious disease. 02/14/2022 Patient evaluated on medical floor. He continues to be drowsy, he is arousable. Speech is slurred. He does have right facial droop today unclear if this is secondary to mild right facial swelling there is some tenderness to touch. No focal weakness noted however he has significant generalized weakness. Procalcitonin level came back yesterday at >100 and he was started on IV cefepime, blood cultures came back positive last night gram positive, streptococcus species. Infectious disease on consult and IV vancomycin has been added. Liver enzymes and bili remain elevated and abdominal ultrasound was done which shows gallbladder with sludge possible acute cholecystitis. Lipase is elevated at 5815. Patient is scheduled for MRCP to evaluated for choledocholelisthiasis. White count today 22.40, hgb 9.4, sodium 136, BUN 51.3, creatinine 5.7 today. Glucose in the 100s. 02/15/2022 Patient evaluated on step down unit. Negative brain CT. Neurology work up in place. He is more awake today alert x 1 to 2. He is undergoing hemodialysis t [facility]. Blood cultures showing alpha hemolytic streptococcus. Patient had MRCP today, surgery following and feel elevated enzymes secondary to acute pancreatitis. 02/16/2022 Patient is evaluated today on step down unit. He is more awake and alert, currently alert x 2 to 3. He continues to be drowsy. Continues with right sided facial droop, no focal weakness noted. Patient had MRI completed today showing scattered bilateral punctuate white matter changes compatible with acute ischemic changes. Possibly from septic emboli. Possibly right mastoiditis. He does complain of some pain and numbness to the face adjacent to where the tooth was extracted on his right upper jaw. Dr. Alcaraz has been consulted for further evaluation of this. Blood cultures showing alpha hemolytic streptococcus. Infectious disease following cultures, on IV unasyn. Echocardiogram has been ordered to evaluate for endocarditis. Case discussed with general surgery, MRCP has been completed there is mild extrahepatic duct dilation with the CBD measuring up to 8mm with no definitive filling defect, stricture or obstructing mass lesion noted within the limitations of exam. There is mild gallbladder wall thickening suggestive of gallbladder sludge. Patient has hepatosplenomegaly with iron deposition. Moderate volume ascites. White count is 18.1 today, hemoglobin 9.4, neutrophils 14.8. Sodium 133 today, potassium 2.4. Creatinine 3.76. Bilirubin continues to elevate up to 6.3 he does appear more jaundice today. Liver enzymes are improving overall. Lipase 1394. He remains afebrile, heart rate 54, blood pressure 120/65, 97% on room air. 02/17/2022 Patient is evaluated today resting in bed more awake and alert. Denies pain. Status post paracentesis with 4L of fluid off. Has standing over for biweekly paracentesis. Echocardiogram has been completed showing normal LV systolic function with moderate pulmonary hypertension and also moderate to severe tricuspid regurgitation. Cardiology has been consulted for possible TARIK. General surgery has evaluated the patient today and recommending possible laproscopic cholecystectomy secondary to chronic cholecystitis with sludge pending improvement in his medical condition. IV unasyn can cause biliary stasis this was discussed with ID consultation and antibiotics have been changed to ceftriaxone and repeat labs tomorrow. He is being dialyzed today. Maxillary facial CT is pending at this time. Remains afebrile, heart rate 51, blood pressure 122/60, 95% room air. Labs today showing white count 16.3, hgb 9.0. Sodium 134, potassium 4.0, Although bilirubin is slightly up today at 6.6, AST/ALT and alk phos have improved. CRP 20.5. Lipase 1015. Lipid panel is significantly abnormal showing triglyceride level 317, total cholesterol 209, LDL 133, HDL 63. 02/18/2022 Patient is currently resting in bed. Awake alert but seems to be confused and lethargic. Patient has been afebrile. No complaints of chest pain or worsening shortness of breath. No nausea vomiting abdominal pain and diarrhea. Blood cultures showed all for hemolytic streptococcus. Patient remains on antibiotics in the form of ceftriaxone. Patient was seen by cardiology due to bacteremia and possible TARIK. MRI brain done on 02/16/2022 showed scattered bilateral cerebral punctate white matter changes compatible with acute ischemic changes best visualized on diffuse weighted imaging. Consider septic emboli within the differential. Clinical correlation for right mastoiditis. Patient is otherwise scheduled for hemodialysis TTS. Next hemodialysis is tomorrow. 02/19/2022 Patient's condition remains the same. Awake alert but seems lethargic. No facial droop noted. No complains of nausea vomiting. Patient has been afebrile. Repeat blood cultures have been negative. Patient is being continued on antibiotics the form of ceftriaxone. Discussed with neurosurgery and recommending debridement of right mastoiditis once medically stable. Cardiology is planning for TARIK on Monday if needed. Laboratory data showed WBC 15.1 hemoglobin 9.5 and platelets 252 Sodium 133 potassium 3.9 bicarb is 21 BUN 47 creatinine 5.39, AST 48 DT 8 alk phos 321 and albumin 2.3. Blood sugar is 119. 02/20/2022 Patient is currently lying in bed. She is willing confused. Somewhat weak but denies any complaints of cough or sputum production. Afebrile. No nausea vomiting abdominal pain or diarrhea. Patient was dialyzed yesterday. Patient does have poor appetite. Laboratory pressure WBC 14.0 hemoglobin 9.4 and platelets 300 Sodium 133 potassium 4.3 chloride 99 bicarb is 22 BUN 35 creatinine 4.17 and CRP level is 8.9 02/21/2022 Patient is currently lying in the bed. Awake alert and oriented. Patient still having right-sided facial weakness. Complaining of right jaw pain. Afebrile. Patient has been having tooth problems. Otherwise patient has been afebrile. No nausea vomiting abdominal pain or diarrhea. Repeat blood cultures have been negative. Continued on a ntibiotics in the form of Unasyn. ID is on board. Neurology, nephrology and ID is on board. Review of Systems Constitutional: Reports fatigue, denied any fever. Cardio vascular: denied any chest pain, palpitations Gastrointestinal: Denies abdominal pain today, no nausea vomiting or diarrhea noted. Pulmonary: Denied any shortness of breath cough Neurologic: Improved right facial droop. All inpatient medications were reviewed and appropriate changes in these medications as dictated in the interval history and assessment and plan. PHYSICAL EXAMINATION: GENERAL: The patient is drowsy sleepy oriented 2, not in any acute distress. Well developed, well nourished. Pale. HEENT: Pupils are round and equally reacting to light. EOMI. No scleral icterus. No conjunctival pallor. Normocephalic, atraumatic. No pharyngeal erythema. No thyromegaly. He has Molars on the right upper jaw have been extracted. No evidence of abscess at the gumline on basic exam. Malodorous breath. CARDIOVASCULAR: S1 and S2 present. No murmurs, rubs, or gallops. PULMONARY: Chest is clear to auscultation, no wheezing or crackles. ABDOMEN: Soft, notenderness noted, nondistended, normoactive bowel sounds. No palpable organomegaly. MUSCULOSKELETAL: No joint swelling or deformity. EXTREMITIES: No cyanosis, clubbing, or pedal edema. NEUROLOGICAL: Diffuse generalized weakness. drowsy. right facial droop continues. SKIN: No rashes. Jaundice. Assessment and plan Assessment -Acute ischemic stroke there are multiple small foci over bilateral hemisphere noted on MRI, concern for emboli and also septic emboli. Cardiology is planning for TARIK on Monday.. -Altered mental status secondary toxic metabolic encephalopathy secondary to recent opiate use, and sepsis, there is also concern for stroke.. -Streptococcus bacteremia . Repeat blood cultures negative. -Sepsis present on admission patient has significant leukocytosis, had dental work done recently with evidence of right mastoiditis on MRI, source is possibly recent dental tooth extraction vs. gallbladder -Elevated transaminases with elevated bilirubin secondary to pancreatitis with elevated lipase there is also evidence of cholecystitis with sludge. -Lactic acidosis on admission, normalized -Volume overload patient missed hemodialysis secondary to hypotension and dizziness, [place] [address] - improving -ESRD on hemodialysis. TTS., initially hypotensive, blood pressure has improved. -Recurrent ascites with frequent paracentesis s/p paracentesis on 02/16 with 4L of fluid off -Mild troponin elevation secondary to renal disease -hyponatremia -Gastroesophageal reflux disease DVT prophylaxis: Subcutaneous heparin GI prophylaxis: IV pepcid Plan Avoid use of opiates Antibiotics changed to ceftriaxone. ID is on board. Hemodialysis as per schedule on TTS. Cardiology consultation for possible TARIK oral surgeon recommendations re. Facial/maxillary CT -No surgical intervention at incidental improvement. Possible laproscopic cholecystectomy when medically stable Clear liquid diet Monitor labs closely and repeat in AM. Objective - Vital Signs Vital signs: Vital Signs Temp 97.5 F L 02/21/22 19:43 Pulse 51 L 02/21/22 19:43 Resp 16 02/21/22 19:43 BP 138/66 02/21/22 19:43 Pulse Ox 99 02/21/22 19:43 FiO2 Intake & Output 02/21/22 02/21/22 02/22/22 06:59 18:59 06:59 Intake Total 780 340 Output Total 0 0 Balance 780 340 Weight 75.5 kg Intake: IV 100 Oral 780 240 Output: Urine 0 0 Other: Voiding Method Bedside Commode Bedside Commode Diaper Diaper # Voids 0 1 # Bowel Movements 1 1 1 - Labs CBC & Chem 7: 02/23/22 08:34 02/23/22 08:34 Labs: Abnormal Lab Results - Last 24 Hours (Table) 02/21/22 02/21/22 02/21/22 Range/Units 05:53 11:59 12:13 Sodium 131 L (137-145) mmol/L Carbon Dioxide 17 L (22-30) mmol/L BUN 51 H (9-20) mg/dL Creatinine 5.95 H (0.66-1.25) mg/dL Glucose 120 H (74-99) mg/dL POC Glucose (mg/dL) 128 H 127 H (70-110) mg/dL Calcium 8.3 L (8.4-10.2) mg/dL 02/21/22 02/21/22 Range/Units 16:52 20:13 Sodium (137-145) mmol/L Carbon Dioxide (22-30) mmol/L BUN (9-20) mg/dL Creatinine (0.66-1.25) mg/dL Glucose (74-99) mg/dL POC Glucose (mg/dL) 218 H 259 H (70-110) mg/dL Calcium (8.4-10.2) mg/dL Microbiology - Last 24 Hours (Table) 02/16/22 15:20 Anaerobic Culture - Final Paracentesis Fluid 02/16/22 15:20 Gram Stain - Final Paracentesis Fluid Body Fluid Culture - Final 02/15/22 07:39 Blood Culture - Final Blood No Growth after 144 hours
--- NOTE | 2022-02-24 08:17 | P.PN ---
Subjective Progress Note Date: 02/22/22 Patient was 61-year-old male came in with complaints of tiredness weakness drowsiness. Patient has been constipated as well. Patient was given Tylenol 3 after he is a dental procedure patient pain is not bad at this time. Patient the blood pressure is extremely low was given IV fluids in ER patient is Monday and Monday hemodialysis schedule a patient doesn't have a short is a doesn't have any pulmonary edema on the chest x-ray because of which are hemanalysis be is being held at this time and nephrology's recording cautious hydration because of his hypotension. Patient's sodium is also low at 134. Patient appears to have toxicity from codeine and decreased excretion because of renal dysfunction. Patient appears bit encephalopathic 02/13/2022 Patient is evaluated today on medical floor. He is confused and drowsy. Nursing reports increased confusion. Blood pressure continues to run low in the high 90s. Remains afebrile. Sinus bradycardia on the heart monitor. He is receiving IV normal saline at 75 mls per hour. Plan per nephrology is to undergo hemodialysis today. Patient does have increased abdominal distention today, has positive bowel sounds there is no focal tenderness noted on exam. AST and ALT are increased. He did have lactic acidosis on admission as well. He does have consistent leukocytosis today 27.4. Blood cultures are currently pending at this time. Creatinine shows worsening renal function. He has not had any urine output per patient he does make some urine. He reports that bowels are moving. Will check a procalcitonin level and if elevated add empiric antibiotics and consult infectious disease. 02/14/2022 Patient evaluated on medical floor. He continues to be drowsy, he is arousable. Speech is slurred. He does have right facial droop today unclear if this is secondary to mild right facial swelling there is some tenderness to touch. No focal weakness noted however he has significant generalized weakness. Procalcitonin level came back yesterday at >100 and he was started on IV cefepime, blood cultures came back positive last night gram positive, streptococcus species. Infectious disease on consult and IV vancomycin has been added. Liver enzymes and bili remain elevated and abdominal ultrasound was done which shows gallbladder with sludge possible acute cholecystitis. Lipase is elevated at 5815. Patient is scheduled for MRCP to evaluated for choledocholelisthiasis. White count today 22.40, hgb 9.4, sodium 136, BUN 51.3, creatinine 5.7 today. Glucose in the 100s. 02/15/2022 Patient evaluated on step down unit. Negative brain CT. Neurology work up in place. He is more awake today alert x 1 to 2. He is undergoing hemodialysis t [facility]. Blood cultures showing alpha hemolytic streptococcus. Patient had MRCP today, surgery following and feel elevated enzymes secondary to acute pancreatitis. 02/16/2022 Patient is evaluated today on step down unit. He is more awake and alert, currently alert x 2 to 3. He continues to be drowsy. Continues with right sided facial droop, no focal weakness noted. Patient had MRI completed today showing scattered bilateral punctuate white matter changes compatible with acute ischemic changes. Possibly from septic emboli. Possibly right mastoiditis. He does complain of some pain and numbness to the face adjacent to where the tooth was extracted on his right upper jaw. Dr. Alcaraz has been consulted for further evaluation of this. Blood cultures showing alpha hemolytic streptococcus. Infectious disease following cultures, on IV unasyn. Echocardiogram has been ordered to evaluate for endocarditis. Case discussed with general surgery, MRCP has been completed there is mild extrahepatic duct dilation with the CBD measuring up to 8mm with no definitive filling defect, stricture or obstructing mass lesion noted within the limitations of exam. There is mild gallbladder wall thickening suggestive of gallbladder sludge. Patient has hepatosplenomegaly with iron deposition. Moderate volume ascites. White count is 18.1 today, hemoglobin 9.4, neutrophils 14.8. Sodium 133 today, potassium 2.4. Creatinine 3.76. Bilirubin continues to elevate up to 6.3 he does appear more jaundice today. Liver enzymes are improving overall. Lipase 1394. He remains afebrile, heart rate 54, blood pressure 120/65, 97% on room air. 02/17/2022 Patient is evaluated today resting in bed more awake and alert. Denies pain. Status post paracentesis with 4L of fluid off. Has standing over for biweekly paracentesis. Echocardiogram has been completed showing normal LV systolic function with moderate pulmonary hypertension and also moderate to severe tricuspid regurgitation. Cardiology has been consulted for possible TARIK. General surgery has evaluated the patient today and recommending possible laproscopic cholecystectomy secondary to chronic cholecystitis with sludge pending improvement in his medical condition. IV unasyn can cause biliary stasis this was discussed with ID consultation and antibiotics have been changed to ceftriaxone and repeat labs tomorrow. He is being dialyzed today. Maxillary facial CT is pending at this time. Remains afebrile, heart rate 51, blood pressure 122/60, 95% room air. Labs today showing white count 16.3, hgb 9.0. Sodium 134, potassium 4.0, Although bilirubin is slightly up today at 6.6, AST/ALT and alk phos have improved. CRP 20.5. Lipase 1015. Lipid panel is significantly abnormal showing triglyceride level 317, total cholesterol 209, LDL 133, HDL 63. 02/18/2022 Patient is currently resting in bed. Awake alert but seems to be confused and lethargic. Patient has been afebrile. No complaints of chest pain or worsening shortness of breath. No nausea vomiting abdominal pain and diarrhea. Blood cultures showed all for hemolytic streptococcus. Patient remains on antibiotics in the form of ceftriaxone. Patient was seen by cardiology due to bacteremia and possible TARIK. MRI brain done on 02/16/2022 showed scattered bilateral cerebral punctate white matter changes compatible with acute ischemic changes best visualized on diffuse weighted imaging. Consider septic emboli within the differential. Clinical correlation for right mastoiditis. Patient is otherwise scheduled for hemodialysis TTS. Next hemodialysis is tomorrow. 02/19/2022 Patient's condition remains the same. Awake alert but seems lethargic. No facial droop noted. No complains of nausea vomiting. Patient has been afebrile. Repeat blood cultures have been negative. Patient is being continued on antibiotics the form of ceftriaxone. Discussed with neurosurgery and recommending debridement of right mastoiditis once medically stable. Cardiology is planning for TARIK on Monday if needed. Laboratory data showed WBC 15.1 hemoglobin 9.5 and platelets 252 Sodium 133 potassium 3.9 bicarb is 21 BUN 47 creatinine 5.39, AST 48 DT 8 alk phos 321 and albumin 2.3. Blood sugar is 119. 02/20/2022 Patient is currently lying in bed. She is willing confused. Somewhat weak but denies any complaints of cough or sputum production. Afebrile. No nausea vomiting abdominal pain or diarrhea. Patient was dialyzed yesterday. Patient does have poor appetite. Laboratory pressure WBC 14.0 hemoglobin 9.4 and platelets 300 Sodium 133 potassium 4.3 chloride 99 bicarb is 22 BUN 35 creatinine 4.17 and CRP level is 8.9 02/22/2022 Patient is more awake and oriented today. Complains of exacerbation requesting IV pain medications. Patient has been afebrile. No nausea vomiting abdominal pain or diarrhea. Patient has been afebrile will continue on Unasyn. Hemodialysis as per schedule. Laboratory pressure WBC 12.2 hemoglobin 9.5 platelets 429 Sodium 130 potassium 4.7 chloride 97 bicarb is 20 BUN 16 creatinine 7.37 Phosphorus 9.0 CRP 16.1 Patient underwent TARIK which is negative for vegetations. Repeat blood cultures have been negative. Patient is maintained on IV antibiotics. ID is on board. Review of Systems Constitutional: Reports fatigue, denied any fever. Cardio vascular: denied any chest pain, palpitations Gastrointestinal: Denies abdominal pain today, no nausea vomiting or diarrhea noted. Pulmonary: Denied any shortness of breath cough Neurologic: Improved right facial droop. All inpatient medications were reviewed and appropriate changes in these medications as dictated in the interval history and assessment and plan. PHYSICAL EXAMINATION: GENERAL: The patient is drowsy sleepy oriented 2, not in any acute distress. Well developed, well nourished. Pale. HEENT: Pupils are round and equally reacting to light. EOMI. No scleral icterus. No conjunctival pallor. Normocephalic, atraumatic. No pharyngeal erythema. No thyromegaly. He has Molars on the right upper jaw have been extracted. No evidence of abscess at the gumline on basic exam. Malodorous breath. CARDIOVASCULAR: S1 and S2 present. No murmurs, rubs, or gallops. PULMONARY: Chest is clear to auscultation, no wheezing or crackles. ABDOMEN: Soft, notenderness noted, nondistended, normoactive bowel sounds. No palpable organomegaly. MUSCULOSKELETAL: No joint swelling or deformity. EXTREMITIES: No cyanosis, clubbing, or pedal edema. NEUROLOGICAL: Diffuse generalized weakness. drowsy. right facial droop continues. SKIN: No rashes. Jaundice. Assessment and plan Assessment -Acute ischemic stroke there are multiple small foci over bilateral hemisphere noted on MRI, concern for emboli and also septic emboli. Cardiology is planning for TARIK on Monday.. -Altered mental status secondary toxic metabolic encephalopathy secondary to recent opiate use, and sepsis, there is also concern for stroke.. -Streptococcus bacteremia . Repeat blood cultures negative. -Sepsis present on admission patient has significant leukocytosis, had dental work done recently with evidence of right mastoiditis on MRI, source is possibly recent dental tooth extraction vs. gallbladder -Elevated transaminases with elevated bilirubin secondary to pancreatitis with elevated lipase there is also evidence of cholecystitis with sludge. -Lactic acidosis on admission, normalized -Volume overload patient missed hemodialysis secondary to hypotension and dizziness, [place] [address] - improving -ESRD on hemodialysis. TTS., initially hypotensive, blood pressure has improved. -Recurrent ascites with frequent paracentesis s/p paracentesis on 02/16 with 4L of fluid off -Mild troponin elevation secondary to renal disease -hyponatremia -Gastroesophageal reflux disease DVT prophylaxis: Subcutaneous heparin GI prophylaxis: IV pepcid Plan Avoid use of opiates Antibiotics changed to ceftriaxone. ID is on board. Hemodialysis as per schedule on TTS. Cardiology consultation for possible TARIK Pending oral surgeon recommendations and also Facial/maxillary CT Possible laproscopic cholecystectomy when medically stable Clear liquid diet Monitor labs closely and repeat in AM. Objective - Vital Signs Vital signs: Vital Signs Temp 97 F L 02/22/22 19:46 Pulse 51 L 02/22/22 19:46 Resp 16 02/22/22 19:46 BP 142/69 02/22/22 19:46 Pulse Ox 99 02/22/22 19:41 FiO2 Intake & Output 02/22/22 02/22/22 02/23/22 06:59 18:59 06:59 Intake Total 120 400 Output Total 2400 Balance 120 -2000 Weight 76 kg Intake: Oral 120 Hemodialysis 400 Output: Hemodialysis 2400 Other: Voiding Method Bedside Commode Bedside Commode Bedside Commode Diaper Diaper Diaper # Voids 0 # Bowel Movements 1 0 1 - Labs CBC & Chem 7: 02/23/22 08:34 02/23/22 08:34 Labs: Abnormal Lab Results - Last 24 Hours (Table) 02/22/22 02/22/22 02/22/22 Range/Units 06:09 07:14 07:14 WBC 12.2 H (3.8-10.6) k/uL RBC 3.09 L (4.30-5.90) m/uL Hgb 9.5 L (13.0-17.5) gm/dL Hct 29.4 L (39.0-53.0) % RDW 16.0 H (11.5-15.5) % Neutrophils # (Manual) 9.70 H (1.3-7.7) k/uL Lymphocytes # (Manual) 0.85 L (1.0-4.8) k/uL Metamyelocytes # (Man) 0.37 H (0) k/uL Myelocytes # (Manual) 0.61 H (0) k/uL Sodium 130 L (137-145) mmol/L Chloride 97 L (98-107) mmol/L Carbon Dioxide 20 L (22-30) mmol/L BUN 60 H (9-20) mg/dL Creatinine 7.37 H* (0.66-1.25) mg/dL Glucose 157 H (74-99) mg/dL POC Glucose (mg/dL) 162 H (70-110) mg/dL Calcium 8.0 L (8.4-10.2) mg/dL Phosphorus (2.5-4.5) mg/dL Total Bilirubin 2.5 H (0.2-1.3) mg/dL Alkaline Phosphatase 291 H (38-126) U/L C-Reactive Protein 16.1 H (<1.0) mg/dL Total Protein 5.2 L (6.3-8.2) g/dL Albumin 2.4 L (3.5-5.0) g/dL 02/22/22 02/22/22 02/22/22 Range/Units 07:14 11:48 16:25 WBC (3.8-10.6) k/uL RBC (4.30-5.90) m/uL Hgb (13.0-17.5) gm/dL Hct (39.0-53.0) % RDW (11.5-15.5) % Neutrophils # (Manual) (1.3-7.7) k/uL Lymphocytes # (Manual) (1.0-4.8) k/uL Metamyelocytes # (Man) (0) k/uL Myelocytes # (Manual) (0) k/uL Sodium (137-145) mmol/L Chloride (98-107) mmol/L Carbon Dioxide (22-30) mmol/L BUN (9-20) mg/dL Creatinine (0.66-1.25) mg/dL Glucose (74-99) mg/dL POC Glucose (mg/dL) 120 H 139 H (70-110) mg/dL Calcium (8.4-10.2) mg/dL Phosphorus 9.0 H* (2.5-4.5) mg/dL Total Bilirubin (0.2-1.3) mg/dL Alkaline Phosphatase (38-126) U/L C-Reactive Protein (<1.0) mg/dL Total Protein (6.3-8.2) g/dL Albumin (3.5-5.0) g/dL 02/22/22 Range/Units 19:51 WBC (3.8-10.6) k/uL RBC (4.30-5.90) m/uL Hgb (13.0-17.5) gm/dL Hct (39.0-53.0) % RDW (11.5-15.5) % Neutrophils # (Manual) (1.3-7.7) k/uL Lymphocytes # (Manual) (1.0-4.8) k/uL Metamyelocytes # (Man) (0) k/uL Myelocytes # (Manual) (0) k/uL Sodium (137-145) mmol/L Chloride (98-107) mmol/L Carbon Dioxide (22-30) mmol/L BUN (9-20) mg/dL Creatinine (0.66-1.25) mg/dL Glucose (74-99) mg/dL POC Glucose (mg/dL) 175 H (70-110) mg/dL Calcium (8.4-10.2) mg/dL Phosphorus (2.5-4.5) mg/dL Total Bilirubin (0.2-1.3) mg/dL Alkaline Phosphatase (38-126) U/L C-Reactive Protein (<1.0) mg/dL Total Protein (6.3-8.2) g/dL Albumin (3.5-5.0) g/dL
--- NOTE | 2022-02-24 08:21 | P.PN ---
Subjective Progress Note Date: 02/23/22 Patient was 61-year-old male came in with complaints of tiredness weakness drowsiness. Patient has been constipated as well. Patient was given Tylenol 3 after he is a dental procedure patient pain is not bad at this time. Patient the blood pressure is extremely low was given IV fluids in ER patient is Monday and Monday hemodialysis schedule a patient doesn't have a short is a doesn't have any pulmonary edema on the chest x-ray because of which are hemanalysis be is being held at this time and nephrology's recording cautious hydration because of his hypotension. Patient's sodium is also low at 134. Patient appears to have toxicity from codeine and decreased excretion because of renal dysfunction. Patient appears bit encephalopathic 02/13/2022 Patient is evaluated today on medical floor. He is confused and drowsy. Nursing reports increased confusion. Blood pressure continues to run low in the high 90s. Remains afebrile. Sinus bradycardia on the heart monitor. He is receiving IV normal saline at 75 mls per hour. Plan per nephrology is to undergo hemodialysis today. Patient does have increased abdominal distention today, has positive bowel sounds there is no focal tenderness noted on exam. AST and ALT are increased. He did have lactic acidosis on admission as well. He does have consistent leukocytosis today 27.4. Blood cultures are currently pending at this time. Creatinine shows worsening renal function. He has not had any urine output per patient he does make some urine. He reports that bowels are moving. Will check a procalcitonin level and if elevated add empiric antibiotics and consult infectious disease. 02/14/2022 Patient evaluated on medical floor. He continues to be drowsy, he is arousable. Speech is slurred. He does have right facial droop today unclear if this is secondary to mild right facial swelling there is some tenderness to touch. No focal weakness noted however he has significant generalized weakness. Procalcitonin level came back yesterday at >100 and he was started on IV cefepime, blood cultures came back positive last night gram positive, streptococcus species. Infectious disease on consult and IV vancomycin has been added. Liver enzymes and bili remain elevated and abdominal ultrasound was done which shows gallbladder with sludge possible acute cholecystitis. Lipase is elevated at 5815. Patient is scheduled for MRCP to evaluated for choledocholelisthiasis. White count today 22.40, hgb 9.4, sodium 136, BUN 51.3, creatinine 5.7 today. Glucose in the 100s. 02/15/2022 Patient evaluated on step down unit. Negative brain CT. Neurology work up in place. He is more awake today alert x 1 to 2. He is undergoing hemodialysis t mason. Blood cultures showing alpha hemolytic streptococcus. Patient had MRCP today, surgery following and feel elevated enzymes secondary to acute pancreatitis. 02/16/2022 Patient is evaluated today on step down unit. He is more awake and alert, currently alert x 2 to 3. He continues to be drowsy. Continues with right sided facial droop, no focal weakness noted. Patient had MRI completed today showing scattered bilateral punctuate white matter changes compatible with acute ischemic changes. Possibly from septic emboli. Possibly right mastoiditis. He does complain of some pain and numbness to the face adjacent to where the tooth was extracted on his right upper jaw. Dr. Alcaraz has been consulted for further evaluation of this. Blood cultures showing alpha hemolytic streptococcus. Infectious disease following cultures, on IV unasyn. Echocardiogram has been ordered to evaluate for endocarditis. Case discussed with general surgery, MRCP has been completed there is mild extrahepatic duct dilation with the CBD measuring up to 8mm with no definitive filling defect, stricture or obstructing mass lesion noted within the limitations of exam. There is mild gallbladder wall thickening suggestive of gallbladder sludge. Patient has hepatosplenomegaly with iron deposition. Moderate volume ascites. White count is 18.1 today, hemoglobin 9.4, neutrophils 14.8. Sodium 133 today, potassium 2.4. Creatinine 3.76. Bilirubin continues to elevate up to 6.3 he does appear more jaundice today. Liver enzymes are improving overall. Lipase 1394. He remains afebrile, heart rate 54, blood pressure 120/65, 97% on room air. 02/17/2022 Patient is evaluated today resting in bed more awake and alert. Denies pain. Status post paracentesis with 4L of fluid off. Has standing over for biweekly paracentesis. Echocardiogram has been completed showing normal LV systolic function with moderate pulmonary hypertension and also moderate to severe tricuspid regurgitation. Cardiology has been consulted for possible TARIK. General surgery has evaluated the patient today and recommending possible laproscopic cholecystectomy secondary to chronic cholecystitis with sludge pending improvement in his medical condition. IV unasyn can cause biliary stasis this was discussed with ID consultation and antibiotics have been changed to ceftriaxone and repeat labs tomorrow. He is being dialyzed today. Maxillary facial CT is pending at this time. Remains afebrile, heart rate 51, blood pressure 122/60, 95% room air. Labs today showing white count 16.3, hgb 9.0. Sodium 134, potassium 4.0, Although bilirubin is slightly up today at 6.6, AST/ALT and alk phos have improved. CRP 20.5. Lipase 1015. Lipid panel is significantly abnormal showing triglyceride level 317, total cholesterol 209, LDL 133, HDL 63. 02/18/2022 Patient is currently resting in bed. Awake alert but seems to be confused and lethargic. Patient has been afebrile. No complaints of chest pain or worsening shortness of breath. No nausea vomiting abdominal pain and diarrhea. Blood cultures showed all for hemolytic streptococcus. Patient remains on antibiotics in the form of ceftriaxone. Patient was seen by cardiology due to bacteremia and possible TARIK. MRI brain done on 02/16/2022 showed scattered bilateral cerebral punctate white matter changes compatible with acute ischemic changes best visualized on diffuse weighted imaging. Consider septic emboli within the differential. Clinical correlation for right mastoiditis. Patient is otherwise scheduled for hemodialysis TTS. Next hemodialysis is tomorrow. 02/19/2022 Patient's condition remains the same. Awake alert but seems lethargic. No facial droop noted. No complains of nausea vomiting. Patient has been afebrile. Repeat blood cultures have been negative. Patient is being continued on antibiotics the form of ceftriaxone. Discussed with neurosurgery and recommending debridement of right mastoiditis once medically stable. Cardiology is planning for TARIK on Monday if needed. Laboratory data showed WBC 15.1 hemoglobin 9.5 and platelets 252 Sodium 133 potassium 3.9 bicarb is 21 BUN 47 creatinine 5.39, AST 48 DT 8 alk phos 321 and albumin 2.3. Blood sugar is 119. 02/20/2022 Patient is currently lying in bed. She is willing confused. Somewhat weak but denies any complaints of cough or sputum production. Afebrile. No nausea vomiting abdominal pain or diarrhea. Patient was dialyzed yesterday. Patient does have poor appetite. Laboratory pressure WBC 14.0 hemoglobin 9.4 and platelets 300 Sodium 133 potassium 4.3 chloride 99 bicarb is 22 BUN 35 creatinine 4.17 and CRP level is 8.9 02/22/2022 Patient is more awake and oriented today. Complains of exacerbation requesting IV pain medications. Patient has been afebrile. No nausea vomiting abdominal pain or diarrhea. Patient has been afebrile will continue on Unasyn. Hemodialysis as per schedule. Laboratory pressure WBC 12.2 hemoglobin 9.5 platelets 429 Sodium 130 potassium 4.7 chloride 97 bicarb is 20 BUN 16 creatinine 7.37 Phosphorus 9.0 CRP 16.1 Patient underwent TARIK which is negative for vegetations. Repeat blood cultures have been negative. Patient is maintained on IV antibiotics. ID is on board. 02/24/2020 Patient is resting in the bed. Seems to be more awake and oriented. No complaints of chest pain or shortness of breath. No nausea vomiting abdominal pain. Patient complains of right jaw pain slightly improved today compared to yesterday. No headache or dizziness or lightheadedness. No fever no chills. Patient is being current on IV antibiotics Unasyn. Patient did have patient CT concerning for osteomyelitis of the jaw. May need IV antibiotic course via PICC line. No debridement as per OMFS anticipate improvement. Repeat blood cultures have been negative. Hemodialysis as Scheduled Laboratory showed WBC 11.2 hemoglobin 9.6 and platelets 471 Sodium 134 potassium 4.3 chloride 97 bicarb is 28 BUN 14 creatinine 5.17 and creatinine blood sugar is 143 albumin 2.3 Review of Systems Constitutional: Reports fatigue, denied any fever. Cardio vascular: denied any chest pain, palpitations Gastrointestinal: Denies abdominal pain today, no nausea vomiting or diarrhea noted. Pulmonary: Denied any shortness of breath cough Neurologic: Improved right facial droop. All inpatient medications were reviewed and appropriate changes in these medications as dictated in the interval history and assessment and plan. PHYSICAL EXAMINATION: GENERAL: The patient is drowsy sleepy oriented 2, not in any acute distress. W ell developed, well nourished. Pale. HEENT: Pupils are round and equally reacting to light. EOMI. No scleral icterus. No conjunctival pallor. Normocephalic, atraumatic. No pharyngeal erythema. No thyromegaly. He has Molars on the right upper jaw have been extracted. No evidence of abscess at the gumline on basic exam. Malodorous breath. CARDIOVASCULAR: S1 and S2 present. No murmurs, rubs, or gallops. PULMONARY: Chest is clear to auscultation, no wheezing or crackles. ABDOMEN: Soft, notenderness noted, nondistended, normoactive bowel sounds. No palpable organomegaly. MUSCULOSKELETAL: No joint swelling or deformity. EXTREMITIES: No cyanosis, clubbing, or pedal edema. NEUROLOGICAL: Diffuse generalized weakness. drowsy. right facial droop continues. SKIN: No rashes. Jaundice. Assessment and plan Assessment -Acute ischemic stroke there are multiple small foci over bilateral hemisphere noted on MRI, concern for emboli and also septic emboli. Status post TARIK showed no vegetations... -Altered mental status secondary toxic metabolic encephalopathy secondary to recent opiate use, and sepsis, there is also concern for stroke.. improving. -Streptococcus bacteremia . Repeat blood cultures negative. -Sepsis present on admission patient has significant leukocytosis, had dental work done recently with evidence of right mastoiditis on MRI, source is possibly recent dental tooth extraction vs. gallbladder -Elevated transaminases with elevated bilirubin secondary to pancreatitis with e levated lipase there is also evidence of cholecystitis with sludge. -Lactic acidosis on admission, normalized -Volume overload patient missed hemodialysis secondary to hypotension and dizziness, [place] [address] - improving -ESRD on hemodialysis. TTS., initially hypotensive, blood pressure has improved. -Recurrent ascites with frequent paracentesis s/p paracentesis on 02/16 with 4L of fluid off -Mild troponin elevation secondary to renal disease -hyponatremia -Gastroesophageal reflux disease DVT prophylaxis: Subcutaneous heparin GI prophylaxis: IV pepcid Plan Avoid use of opiates Antibiotics changed to unasyn. ID is on board. Hemodialysis as per schedule on TTS. Cardiology consultation for possible TARIK-negativce for vegetations. Repeat blood cultures have been negative. Oral surgery suggested right mastoid debridement once patient is clinically more improved. Patient is currently on IV antibiotics and will need antibiotic course for osteomyelitis. ID is on board. Possible laproscopic cholecystectomy when medically stable renal diert Monitor labs closely and repeat in AM. Objective - Vital Signs Vital signs: Vital Signs Temp 98.3 F 02/23/22 19:54 Pulse 54 L 02/23/22 19:53 Resp 16 02/23/22 19:53 BP 130/64 02/23/22 19:53 Pulse Ox 98 02/23/22 19:53 FiO2 Intake & Output 02/23/22 02/23/22 02/24/22 06:59 18:59 06:59 Intake Total 750 Output Total 2400 Balance -1650 Weight 74.4 kg Intake: Oral 350 Hemodialysis 400 Output: Hemodialysis 2400 Other: Voiding Method Bedside Commode Bedside Commode Diaper Diaper # Voids 0 0 # Bowel Movements 0 - Labs CBC & Chem 7: 02/23/22 08:34 02/23/22 08:34 Labs: Abnormal Lab Results - Last 24 Hours (Table) 02/23/22 02/23/22 02/23/22 Range/Units 06:09 08:34 08:34 WBC 11.2 H (3.8-10.6) k/uL RBC 3.18 L (4.30-5.90) m/uL Hgb 9.6 L (13.0-17.5) gm/dL Hct 30.0 L (39.0-53.0) % RDW 16.2 H (11.5-15.5) % Plt Count 471 H (150-450) k/uL Neutrophils # (Manual) 8.60 H (1.3-7.7) k/uL Lymphocytes # (Manual) 0.90 L (1.0-4.8) k/uL Monocytes # (Manual) 1.01 H (0-1.0) k/uL Metamyelocytes # (Man) 0.22 H (0) k/uL Myelocytes # (Manual) 0.22 H (0) k/uL Sodium 134 L (137-145) mmol/L Chloride 97 L (98-107) mmol/L BUN 40 H (9-20) mg/dL Creatinine 5.17 H (0.66-1.25) mg/dL Glucose 143 H (74-99) mg/dL POC Glucose (mg/dL) 236 H (70-110) mg/dL Calcium 7.9 L (8.4-10.2) mg/dL Total Bilirubin 2.1 H (0.2-1.3) mg/dL Alkaline Phosphatase 275 H (38-126) U/L Total Protein 5.1 L (6.3-8.2) g/dL Albumin 2.3 L (3.5-5.0) g/dL 12/28/22 12/28/22 12/28/22 Range/Units 11:46 16:37 20:06 WBC (3.8-10.6) k/uL RBC (4.30-5.90) m/uL Hgb (13.0-17.5) gm/dL Hct (39.0-53.0) % RDW (11.5-15.5) % Plt Count (150-450) k/uL Neutrophils # (Manual) (1.3-7.7) k/uL Lymphocytes # (Manual) (1.0-4.8) k/uL Monocytes # (Manual) (0-1.0) k/uL Metamyelocytes # (Man) (0) k/uL Myelocytes # (Manual) (0) k/uL Sodium (137-145) mmol/L Chloride (98-107) mmol/L BUN (9-20) mg/dL Creatinine (0.66-1.25) mg/dL Glucose (74-99) mg/dL POC Glucose (mg/dL) 113 H 239 H 174 H (70-110) mg/dL Calcium (8.4-10.2) mg/dL Total Bilirubin (0.2-1.3) mg/dL Alkaline Phosphatase (38-126) U/L Total Protein (6.3-8.2) g/dL Albumin (3.5-5.0) g/dL
[2022-02-24] MEDS: carvediloL 12.5 MG TAB PO SCH (09:23)
[2022-02-24] MEDS: HEPARIN SODIUM,PORCINE/PF 5,000 UNIT/0.5 ML SYRINGE SQ SCH ×2 (09:29→21:12)
[2022-02-24] MEDS: traMADol 50 MG TAB PO SCH ×4 (09:29→21:12)
[2022-02-24] MEDS: AMPICILLIN-SULBACTAM 3 GM in SODIUM CHLORIDE 0.9% 100 ML IVPB SCH (09:29)
[2022-02-24] MEDS: ASPIRIN 81 MG PO SCH (09:30)
[2022-02-24] MEDS: FAMOTIDINE 20 MG TAB PO SCH (09:30)
[2022-02-24] MEDS: CHLORHEXIDINE GLUCONATE 15 ML CUP MUCOUS MEM SCH ×2 (09:30→21:12)
--- NOTE | 2022-02-24 11:14 | P.PN ---
Subjective Patient is seen in follow-up for end-stage renal disease. He is maintained on hemodialysis on Monday schedule. Scheduled for dialysis today. Tolerating liquids. Resting in bed. No active complaints. Vital signs are stable. General: Awake. No acute distress. HEENT: Head exam is unremarkable. LUNGS: Breath sounds decreased. HEART: Rate and Rhythm are regular. ABDOMEN: Soft, mild distention. EXTREMITITES: No edema. Objective - Vital Signs Vital signs: Vital Signs Temp 97.4 F L 02/24/22 09:23 Pulse 51 L 02/24/22 09:23 Resp 16 02/24/22 09:23 BP 140/66 02/24/22 09:23 Pulse Ox 98 02/24/22 09:23 FiO2 Intake & Output 02/23/22 02/24/22 02/24/22 18:59 06:59 18:59 Intake Total 236 Balance 236 Weight 78 kg 78 kg Intake: Oral 236 Other: Voiding Method Bedside Commode Diaper Diaper Diaper # Voids 0 0 - Labs CBC & Chem 7: 02/23/22 08:34 02/23/22 08:34 Labs: Abnormal Lab Results - Last 24 Hours (Table) 02/23/22 02/23/22 02/23/22 Range/Units 11:46 16:37 20:06 POC Glucose (mg/dL) 113 H 239 H 174 H (70-110) mg/dL 02/24/22 Range/Units 06:06 POC Glucose (mg/dL) 200 H (70-110) mg/dL Assessment and Plan Plan: Assessment: 1. End-stage renal disease maintained on hemodialysis on Monday schedule. 2. Ascites requiring frequent paracentesis. Last on 02/16/2022 with 4 L drained. 3. Strep bacteremia status post tooth extraction. On antibiotics. ID following. TARIK showed no intracardiac thrombus. 4. Anemia of chronic kidney disease maintained on Aranesp. 5. Hypertension with chronic kidney disease. Stable. 6. Chronic kidney disease mineral bone disease. 7. Hyponatremia secondary to chronic kidney disease. Improved. 8. Metabolic acidosis secondary to chronic kidney disease. Improved postdialys is. 9. Chronic systolic CHF with ejection fraction of 45%. Plan: Hemodialysis today. Phosphate binders to be resumed with diet. May need another paracentesis this admission. Will give 25 g IV albumin before paracentesis an additional 25 g if more than 5 L drained.
--- NOTE | 2022-02-24 11:38 | P.PN ---
Subjective Progress Note Date: 02/24/22 Principal diagnosis: tooth ache Patient currently doing well. He states that he still has right facial pain extending into the right ear although this improved over the past several days. He is very weak overall, requiring assistance to ambulate. He denied having fevers or chills. No focal weakness. No chest pain or shortness of breath. Objective - Vital Signs Vital signs: Vital Signs Temp 97.4 F L 02/24/22 09:23 Pulse 51 L 02/24/22 09:23 Resp 16 02/24/22 09:23 BP 140/66 02/24/22 09:23 Pulse Ox 98 02/24/22 09:23 FiO2 Intake & Output 02/23/22 02/24/22 02/24/22 18:59 06:59 18:59 Intake Total 236 Balance 236 Weight 78 kg 78 kg Intake: Oral 236 Other: Voiding Method Bedside Commode Diaper Diaper Diaper # Voids 0 0 - Exam Constitutional: No acute distress, conversant, pleasant Eyes:Anicteric sclerae, moist conjunctiva, no lid-lag, PERRLA, ENMT: Oropharynx clear, no erythema, exudates Neck: Supple, FROM, no masses, or JVD, No carotid bruits, No thyromegaly Lungs: Clear to auscultation, Clear to percussion, Normal respiratory effort, no accessory muscle use Cardiovascular: Heart regular in rate and rhythm, No murmurs, gallops, or rubs, No peripheral edema Abdominal: Soft, Nontender, no guarding, rebound or rigidity, Normoactive bowel sounds, No hepatomegaly, No splenomegaly, No palpable mass Skin: Normal temperature, tone, texture, turgor, no induration, No subcutaneous nodules, No rash, lesions, No ulcers Extremities: No digital cyanosis, No clubbing, Pedal pulses intact and symmetrical, Radial pulses intact and symmetrical, No calf tenderness Psychiatric: Alert and oriented to person, place and time, appropriate affect, intact judgement Neuro: Muscles Strength 5/5 in all 4 extremities, Sensation to light touch grossly present throughout, Cranial nerves II-XII grossly intact, no focal sensory deficits - Labs CBC & Chem 7: 02/23/22 08:34 02/23/22 08:34 Labs: Abnormal Lab Results - Last 24 Hours (Table) 02/23/22 02/23/22 02/23/22 Range/Units 11:46 16:37 20:06 POC Glucose (mg/dL) 113 H 239 H 174 H (70-110) mg/dL 02/24/22 Range/Units 06:06 POC Glucose (mg/dL) 200 H (70-110) mg/dL Assessment and Plan Plan: -Acute ischemic stroke there are multiple small foci over bilateral hemisphere noted on MRI, concern for emboli and also septic emboli. Status post TARIK showed no vegetations... -Altered mental status secondary toxic metabolic encephalopathy secondary to recent opiate use, and sepsis, there is also concern for stroke.. improving. -Streptococcus bacteremia . Repeat blood cultures negative. -Sepsis present on admission patient has significant leukocytosis, had dental work done recently with evidence of right mastoiditis on MRI, source is possibly recent dental tooth extraction vs. gallbladder -Elevated transaminases with elevated bilirubin secondary to pancreatitis with elevated lipase there is also evidence of cholecystitis with sludge. -Lactic acidosis on admission, normalized -Volume overload patient missed hemodialysis secondary to hypotension and dizziness[place] [address] - improving -ESRD on hemodialysis. TTS., initially hypotensive, blood pressure has improved. -Recurrent ascites with frequent paracentesis s/p paracentesis on 02/16 with 4L of fluid off -Mild troponin elevation secondary to renal disease -Chronic cholecystitis with sludge, seen by surgery, no cholecystectomy indicated inpatient, will plan for outpatient. -Elevated LFTs likely sec to sepsis, resolved. -hyponatremia -Gastroesophageal reflux disease DVT prophylaxis: Subcutaneous heparin GI prophylaxis: IV pepcid Plan Avoid use of opiates Continue treatment with unasyn. ID is on board, will require total of 6 weeks of treatment, will order a PICC line. Hemodialysis as per schedule on TTS. Nephrology following Repeat blood cultures have been negative. Oral surgery suggested right mastoid debridement once patient is clinically more improved. renal diert Monitor labs closely and repeat in AM. Dispo: d/c to rehab once picc in
[2022-02-24 11:46] LABS: Glucose,Whole Blood 116 mg/dL (70-110)
[2022-02-24] MEDS: SEVELAMER 800 MG TAB PO SCH ×2 (12:54→16:53)
--- NOTE | 2022-02-24 13:22 | P.PN ---
Subjective Progress Note Date: 02/24/22 CHIEF COMPLAINT: Dizziness and weakness HISTORY OF PRESENT ILLNESS: Patient is lying in bed comfortably and receiving hemodialysis. Patient denies any abdominal pain. He is tolerating the pured diet. Does complain of right-sided jaw and tooth pain. He has been having bowel movements. Denies any nausea or vomiting. PHYSICAL EXAM: VITAL SIGNS: Reviewed. GENERAL: Well-developed in no acute distress. HEENT: No sclera icterus. Extraocular movements grossly intact. Moist buccal mucosa. Head is atraumatic, normocephalic. ABDOMEN: Soft. Nondistended. Nontender NEUROLOGIC: Confused ASSESSMENT: 1. Chronic Cholecystitis with sludge noted on both the abdominal ultrasound and MRCP 2. Jaw infection 3. Elevated liver enzymes and total bilirubin trending downwards 4. Leukocytosis 5. Pancreatitis 6. Abdominal ascites 7. Bacteremia PLAN: -Plan for outpatient laparoscopic cholecystectomy when medically stable -Continue supportive care -Advance diet to pured Physician Electron Microprobe Operator note has been reviewed by physician. Signing provider agrees with the documented findings, assessment, and plan of care. I have personally seen and examined the patient, reviewed the WOOD DRILL OPERATOR /PAs history, exam and MDM and agree with the assessment and plan as written. Based on total visit time, I have performed more than 50% of the visit. As above: Patient tolerating diet. Denies pain at this time. Continue antibiotics for mandibular infection. Follow-up with Dr. William after discharge. We'll sign off. Please call if needed. Objective - Vital Signs Vital signs: Vital Signs Temp 98.0 F 02/24/22 12:34 Pulse 47 L 02/24/22 13:04 Resp 19 02/24/22 12:34 BP 145/67 02/24/22 12:34 Pulse Ox 97 02/24/22 11:49 FiO2 Intake & Output 02/23/22 02/24/22 02/24/22 18:59 06:59 18:59 Intake Total 536 Output Total 2300 Balance -1764 Weight 78 kg 78 kg Intake: Oral 236 Hemodialysis 300 Output: Hemodialysis 2300 Other: Voiding Method Bedside Commode Diaper Diaper Diaper # Voids 0 0 - Labs CBC & Chem 7: 02/23/22 08:34 02/23/22 08:34 Labs: Abnormal Lab Results - Last 24 Hours (Table) 02/23/22 02/23/2202/24/22 Range/Units 16:37 20:06 06:06 POC Glucose (mg/dL) 239 H 174 H 200 H (70-110) mg/dL 02/24/22 Range/Units 11:41 POC Glucose (mg/dL) 116 H (70-110) mg/dL
[2022-02-24] MEDS ORDERED: LIDOCAINE 1% INJ 10MG/ML (5 ML VIAL-PF) SQ ONE (14:10)
--- NOTE | 2022-02-24 15:02 | IR ---
PICC LINE PLACEMENT: HISTORY: Infection requiring long-term antibiotic therapy PROCEDURE: Ultrasound and fluoroscopic guidance of PICC line placement. BPM ANALYST: Dr. Hurley COMPLICATIONS: None ANESTHESIA: 1. 1% Lidocaine locally. FINDINGS/TECHNIQUE: The procedure was explained to the patient. The risks, complications, benefits and alternatives were discussed and any questions were answered. Informed consent was obtained. The patient was placed supine on the fluoroscopic table and prepped and draped in the usual sterile fash ion. Utilizing a 21 gauge needle and sonographic and fluoroscopic guidance, access in the right bas ilic vein was achieved and there is placement of a 0.018 guidewire. The vein is patent. A 4-F. hudson th was placed over the guidewire. The guidewire and dilator were removed and a 4-F. PICC line was pl aced through the sheath with the tip at the level of the SVC. The sheath was removed, the catheter w as flushed and sutured into position. The patient was stable throughout the procedure and remained s table upon discharge from the Department of Radiology. The vein puncture was patent under ultrasound. A scale image was obtained to document patency of the vein punctured. All elements of the maximal barrier technique were utilized. FLUOROSCOPY TIME: 0.2 IMPRESSION: Successful PICC line placement under ultrasound and fluoroscopic guidance.
[2022-02-24] MEDS: carvediloL 3.125 MG TAB PO SCH (16:49)
[2022-02-24 16:53] LABS: Glucose,Whole Blood 203 mg/dL (70-110)
[2022-02-24 20:51] LABS: Glucose,Whole Blood 145 mg/dL (70-110)
[2022-02-25 06:19] LABS: Glucose,Whole Blood 193 mg/dL (70-110)
[2022-02-25] MEDS: carvediloL 3.125 MG TAB PO SCH ×2 (06:54→16:29)
[2022-02-25] MEDS: INSULIN ASPART (NovoLOG) 100 UNIT/ML VIAL SQ SCH ×4 (07:42→20:33)
[2022-02-25] MEDS: SEVELAMER 800 MG TAB PO SCH ×3 (07:42→17:31)
[2022-02-25 08:04] LABS: Basophils # (A) 0.1 k/uL (0-0.2); Basophils % (A) 1 %; Eosinophils # (A) 0.1 k/uL (0-0.7); Eosinophils % (A) 1 %; HCT 29.9 % (39.0-53.0); HGB 9.6 gm/dL (13.0-17.5); Hypochromasia Slight; Lymphocytes % (A) 10 %; MCH 30.4 pg (25.0-35.0); MCHC 32.2 g/dL (31.0-37.0); MCV 94.4 fL (80.0-100.0); Mean Platelet Volume 8.6; Monocytes # (A) 0.6 k/uL (0-1.0); Monocytes % (A) 6 %; Neutrophils % (A) 80 %; Platelet Count 447 k/uL (150-450); RBC 3.17 m/uL (4.30-5.90); RDW 15.3 % (11.5-15.5)
[2022-02-25 08:20] LABS: Calcium 8.2 mg/dL (8.4-10.2); Potassium 5.2 mmol/L (3.5-5.1); Total Bilirubin 2.1 mg/dL (0.2-1.3)
[2022-02-25 08:52] LABS: Albumin 2.6 g/dL (3.5-5.0); Total Protein 5.6 g/dL (6.3-8.2)
[2022-02-25] MEDS: traMADol 50 MG TAB PO SCH ×4 (09:11→20:31)
[2022-02-25] MEDS: FAMOTIDINE 20 MG TAB PO SCH (09:11)
[2022-02-25] MEDS: HEPARIN SODIUM,PORCINE/PF 5,000 UNIT/0.5 ML SYRINGE SQ SCH ×2 (09:11→20:31)
[2022-02-25] MEDS: ASPIRIN 81 MG PO SCH (09:11)
[2022-02-25] MEDS: CHLORHEXIDINE GLUCONATE 15 ML CUP MUCOUS MEM SCH ×2 (09:11→20:32)
[2022-02-25] MEDS: AMPICILLIN-SULBACTAM 3 GM in SODIUM CHLORIDE 0.9% 100 ML IVPB SCH (09:12)
[2022-02-25 10:13] LABS: C Reactive Protein 8.4 mg/dL (<1.0)
[2022-02-25 10:35] LABS: Erythrocyte Sedimentation Rate 113 mm/hr (0-15)
--- NOTE | 2022-02-25 11:36 | P.DS ---
Providers Date of admission: 02/12/22 10:12 Expected date of discharge: 02/25/22 Attending physician: Darlin Arguello DO Consults: 02/12/22 10:12 Consult Physician Urgent Consulting Provider: Angle Yates Consult Reason/Comments: Missed dialysis Do you want consulting provider notified?: Yes 02/13/22 18:25 Consult Physician Routine Consulting Provider: Jeffy Berumen Consult Reason/Comments: elevated procalcitonin Do you want consulting provider notified?: Yes 02/14/22 11:37 Consult Physician Routine Consulting Provider: Jerson William Consult Reason/Comments: Possible acute cholecystitis, sepsis Do you want consulting provider notified?: Yes 02/14/22 16:01 Consult Physician Routine Consulting Provider: Jay Angeles Consult Reason/Comments: altered mental status Do you want consulting provider notified?: Yes 02/16/22 12:57 Consult Physician Routine Consulting Provider: Samir Alcaraz Consult Reason/Comments: recent right upper jaw tooth extraction, bacteremic Do you want consulting provider notified?: Yes 02/17/22 12:41 Consult Physician Routine Consulting Provider: Kanu Lara Consult Reason/Comments: TARIK Do you want consulting provider notified?: Yes Primary care physician: Hayden Cervantes Hospital Course: 61-year-old male came in with complaints of weakness and drowsiness. He presented with hypotension after undergoing dental procedure. He was given IV fluids in ER. Patient is Monday and Monday hemodialysis schedule. He has been complaining of pain at the site if the tooth extraction, describing it to be sharp 7-8 out of 10 no radiation. Patient on presentation to the hospital was afebrile, did have white count 25,000 with a left shift. Also noted to have elevated liver enzymes in the thousands. Lipase is elevated at 5815. Patient did have a chest x-ray no acute cardiopulmonary process abdominal x-ray nonspecific bowel gas pattern abdominal ultrasound thickened gallbladder wall with sludge correlate for cholecystitis. Blood cultures came back positive with gram-positive cocci which turned out to be streptococcus, He continued to be drowsy and was having right sided facial droop, no focal weakness noted. Patient had brain MRI showing scattered bilateral punctuate white matter changes compatible with acute ischemic changes. Possibly from septic emboli. Possibly right mastoiditis. He does complain of some pain and numbness to the face adjacent to where the tooth was extracted on his right upper jaw. He was treated with IV unasyn. Cardiology was consulted, TTE showed normal LV systolic function with moderate pulmonary hypertension and also moderate to severe tricuspid regurgitation. TARIK was performed and that showed no vegetations or endocarditis. Due to abnormal gallbladder ultrasound MRCP was completed and that showed mild extrahepatic duct dilation with the CBD measuring up to 8mm with no definitive filling defect, stricture or obstructing mass lesion noted within the limitat ions of exam. There is mild gallbladder wall thickening suggestive of gallbladder sludge. Patient has hepatosplenomegaly with iron deposition. Moderate volume ascites. ID service recommended 6 weeks of Unasyn treatment, PICC line was ordered was placed. Repeat blood cultures have been negative. Oral surgery suggested right mastoid debridement once patient is clinically more improved. Patient was discharged to rehab in a stable condition. Time for discharge 35 minutes Patient was seen and examined [id number] on the day of discharge 02/25 Plan - Discharge Summary Discharge Rx Participant: Yes New Discharge Prescriptions: No Action amLODIPine [Norvasc] 10 mg PO DAILY #30 tab Albuterol Sulfate [Ventolin HFA] 1 - 2 puff INHALATION RT-Q6H PRN PRN Reason: Shortness Of Breath Loratadine 10 mg PO DAILY cloNIDine HCL [Catapres] 0.1 mg PO TID Velphoro 500mg Chewable Tab 1,500 mg PO TID-W/MEALS Velphoro 500mg Chewable Tab 500 mg PO BID PRN PRN Reason: WITH SNACKS carvediloL [Coreg] 25 mg PO BID hydrALAZINE HCL [Apresoline] 100 mg PO TID Ibuprofen [Motrin] 400 - 800 mg PO Q4H PRN PRN Reason: Pain Or Fever > 100.5 Acetaminophen-Codeine 300-30mg [Tylenol w/codeine #3] 1 - 2 tab PO Q4-6H PRN PRN Reason: Pain Discharge Medication List amLODIPine [Norvasc] 10 mg PO DAILY #30 tab 09/21/17 [Rx] Albuterol Sulfate [Ventolin HFA] 1 - 2 puff INHALATION RT-Q6H PRN 07/17/20 [History] Loratadine 10 mg PO DAILY 07/17/20 [History] carvediloL [Coreg] 25 mg PO BID 07/17/20 [History] Ibuprofen [Motrin] 400 - 800 mg PO Q4H PRN 11/11/21 [History] cloNIDine HCL [Catapres] 0.1 mg PO TID 11/11/21 [History] hydrALAZINE HCL [Apresoline] 100 mg PO TID 11/11/21 [History] Acetaminophen-Codeine 300-30mg [Tylenol w/codeine #3] 1 - 2 tab PO Q4-6H PRN 02/03/22 [History] Velphoro 500mg Chewable Tab 1,500 mg PO TID-W/MEALS 02/12/22 [History] Velphoro 500mg Chewable Tab 500 mg PO BID PRN 02/12/22 [History] Follow up Appointment(s)/Referral(s): Rebeca Salvador, [NON-STAFF] - As Needed Hayden Cervantes MD [Primary Care Provider] - 1-2 days Jerson William MD [STAFF PHYSICIAN] - 1 Week
[2022-02-25 11:57] LABS: Glucose,Whole Blood 163 mg/dL (70-110)
--- NOTE | 2022-02-25 14:04 | P.PN ---
Subjective Patient is seen in follow-up for end-stage renal disease. He is maintained on hemodialysis on Monday schedule. No problems with dialysis yesterday. Resting in bed. No active complaints. Vital signs are stable. General: Awake. No acute distress. HEENT: Head exam is unremarkable. LUNGS: Breath sounds decreased. HEART: Rate and Rhythm are regular. ABDOMEN: Soft, mild distention. EXTREMITITES: No edema. Objective - Vital Signs Vital signs: Vital Signs Temp 98.0 F 02/25/22 12:00 Pulse 55 L 02/25/22 12:00 Resp 17 02/25/22 12:00 BP 161/41 02/25/22 12:00 Pulse Ox 97 02/25/22 12:00 FiO2 Intake & Output 02/24/22 02/25/22 02/25/22 18:59 06:59 18:59 Intake Total 536 0 Output Total 2300 0 Balance -1764 0 0 Weight 78 kg 45.6 kg Intake: Oral 236 0 Hemodialysis 300 Output: Urine 0 Hemodialysis 2300 Other: Voiding Method Diaper Diaper # Voids 0 0 - Labs CBC & Chem 7: 02/25/22 07:35 02/25/22 07:35 Labs: Abnormal Lab Results - Last 24 Hours (Table) 02/24/22 02/24/22 02/25/22 Range/Units 16:51 20:39 06:17 RBC (4.30-5.90) m/uL Hgb (13.0-17.5) gm/dL Hct (39.0-53.0) % Neutrophils # (1.3-7.7) k/uL ESR (0-15) mm/hr Sodium (137-145) mmol/L Potassium (3.5-5.1) mmol/L Chloride (98-107) mmol/L BUN (9-20) mg/dL Creatinine (0.66-1.25) mg/dL Glucose (74-99) mg/dL POC Glucose (mg/dL) 203 H 145 H 193 H (70-110) mg/dL Calcium (8.4-10.2) mg/dL Total Bilirubin (0.2-1.3) mg/dL Alkaline Phosphatase (38-126) U/L C-Reactive Protein (<1.0) mg/dL Total Protein (6.3-8.2) g/dL Albumin (3.5-5.0) g/dL 02/25/22 02/25/22 02/25/22 Range/Units 07:35 07:35 11:49 RBC 3.17 L (4.30-5.90) m/uL Hgb 9.6 L (13.0-17.5) gm/dL Hct 29.9 L (39.0-53.0) % Neutrophils # 8.0 H (1.3-7.7) k/uL ESR 113 H (0-15) mm/hr Sodium 131 L (137-145) mmol/L Potassium 5.2 H (3.5-5.1) mmol/L Chloride 96 L (98-107) mmol/L BUN 40 H (9-20) mg/dL Creatinine 4.92 H (0.66-1.25) mg/dL Glucose 187 H (74-99) mg/dL POC Glucose (mg/dL) 163 H (70-110) mg/dL Calcium 8.2 L (8.4-10.2) mg/dL Total Bilirubin 2.1 H (0.2-1.3) mg/dL Alkaline Phosphatase 258 H (38-126) U/L C-Reactive Protein 8.4 H (<1.0) mg/dL Total Protein 5.6 L (6.3-8.2) g/dL Albumin 2.6 L (3.5-5.0) g/dL Assessment and Plan Plan: Assessment: 1. End-stage renal disease maintained on hemodialysis on Monday schedule. 2. Ascites requiring frequent paracentesis. Last on 02/16/2022 with 4 L drained. 3. Strep bacteremia status post tooth extraction. On antibiotics. ID following. TARIK showed no intracardiac thrombus. 4. Anemia of chronic kidney disease maintained on Aranesp. 5. Hypertension with chronic kidney disease. Stable. 6. Chronic kidney disease mineral bone disease. On Renvela. 7. Hyponatremia secondary to chronic kidney disease. Improved. 8. Metabolic acidosis secondary to chronic kidney disease. Improved postdial ysis. 9. Chronic systolic CHF with ejection fraction of 45%. Plan: Hemodialysis tomorrow. Resume amlodipine 5 mg twice a day. Hold for systolic blood pressure less than 120.
--- NOTE | 2022-02-25 15:01 | P.PN ---
Subjective Progress Note Date: 02/24/22 Principal diagnosis: bacteremia Patient is a 61-year-old male with a past medical history significant for end-stage renal disease on hemodialysis through the left arm AV fistula patient presenting to the ER 2 days ago on 02/12/2022, patient was noticed to have elevated blood pressure at the dialysis center the patient advised to go to the hospital patient be complaining of feeling weak since his teeth work done a week before presentation to the hospital , patient was noticed to have streptococcal bacteremia also elevated liver enzymes concern for choledocholithiasis however MRCP did not show any stones in the CBD he did have a CT of the face with evidence of right lower jaw Osteomyelitis. On today's evaluation that is 02/24/2022, the patient remains to be afebrile, the patient is breathing comfortably on room air, the patient denies chest pain shortness of breath or cough, the patient pain to the right lower jaw area has slightly decreased in intensity, patient denies nausea no vomiting and no diarrhea, no new symptoms Objective - Vital Signs Vital signs: Vital Signs Temp 98.0 F 02/24/22 12:34 Pulse 47 L 02/24/22 13:04 Resp 19 02/24/22 12:34 BP 145/67 02/24/22 12:34 Pulse Ox 97 02/24/22 11:49 FiO2 Intake & Output 02/23/22 02/24/22 02/24/22 18:59 06:59 18:59 Intake Total 536 Output Total 2300 Balance -1764 Weight 78 kg 78 kg Intake: Oral 236 Hemodialysis 300 Output: Hemodialysis 2300 Other: Voiding Method Bedside Commode Diaper Diaper Diaper # Voids 0 0 0 - Exam GENERAL DESCRIPTION: Middle-aged male lying in bed in no distress HEENT: Right lower jaw did have more swelling and tenderness today RESPIRATORY SYSTEM: Unlabored breathing , decreased breath sounds at bases HEART: S1 S2 regular rate and rhythm , ABDOMEN: Soft , no tenderness EXTREMITIES: No edema feet - Labs CBC & Chem 7: 02/25/22 07:35 02/25/22 07:35 Labs: Abnormal Lab Results - Last 24 Hours (Table) 02/23/22 02/23/22 02/24/22 Range/Units 16:37 20:06 06:06 POC Glucose (mg/dL) 239 H 174 H 200 H (70-110) mg/dL 02/24/22 Range/Units 11:41 POC Glucose (mg/dL) 116 H (70-110) mg/dL Assessment and Plan (1) Bacteremia Current Visit: Yes Status: Acute Code(s): R78.81 - BACTEREMIA SNOMED Code(s): 0451236 Plan: 1patient present to hospital with elevated blood pressure now with evidence of gram-positive bacteremia patient did have a recent tooth extraction and has been complaining of pain to the jaw area possible source of his bacteremia patient did have an abnormal ultrasound suspicious for cholecystitis And the patient did have elevated liver enzymes and a question of possible choledocholithiasis and cholangitis however the patient subsequently did have MRCP did not show any evidence of choledocholithiasis. Patient did have abnormal CT of the face concerning for possible osteomyelitis of the jaw 2blood cultures repeat has been negative so far 3patient did have abnormal MRI. Reported by radiologist as possible septic emboli, however the patient is clinically not behaving as the patient cleared his bacteremia very quickly, echocardiogram did show some tricuspid regurgitation but no evidence of any vegetation , patient did have a TARIK completed on 02/21/2022 that was negative for any vegetation 4- patient slowly clinically improving and will continue with the Unasyn and monitor his clinical course closely Time with Patient: Less than 30
--- NOTE | 2022-02-25 15:03 | P.PN ---
Subjective Progress Note Date: 02/25/22 Principal diagnosis: bacteremia Patient is a 61-year-old male with a past medical history significant for end-stage renal disease on hemodialysis through the left arm AV fistula patient presenting to the ER 2 days ago on 02/12/2022, patient was noticed to have elevated blood pressure at the dialysis center the patient advised to go to the hospital patient be complaining of feeling weak since his teeth work done a week before presentation to the hospital , patient was noticed to have streptococcal bacteremia also elevated liver enzymes concern for choledocholithiasis however MRCP did not show any stones in the CBD he did have a CT of the face with evidence of right lower jaw Osteomyelitis. On today's evaluation that is 02/25/2022, the patient denies any fever or chills, the patient pain to the right lower jaw area has slightly decreased in intensity, the patient is breathing comfortably on room air, the patient denies chest pain shortness of breath or cough, patient denies nausea no vomiting and no diarrhea, Objective - Vital Signs Vital signs: Vital Signs Temp 98.0 F 02/25/22 12:00 Pulse 55 L 02/25/22 12:00 Resp 17 02/25/22 12:00 BP 161/41 02/25/22 12:00 Pulse Ox 97 02/25/22 12:00 FiO2 Intake & Output 02/24/22 02/25/22 02/25/22 18:59 06:59 18:59 Intake Total 536 0 Output Total 2300 0 Balance -1764 0 0 Weight 78 kg 45.6 kg Intake: Oral 236 0 Hemodialysis 300 Output: Urine 0 Hemodialysis 2300 Other: Voiding Method Diaper Diaper # Voids 0 0 - Exam GENERAL DESCRIPTION: Middle-aged male lying in bed in no distress HEENT: Right lower jaw swelling and tenderness has decreased RESPIRATORY SYSTEM: Unlabored breathing , decreased breath sounds at bases HEART: S1 S2 regular rate and rhythm , ABDOMEN: Soft , no tenderness EXTREMITIES: No edema feet - Labs CBC & Chem 7: 02/25/22 07:35 02/25/22 07:35 Labs: Abnormal Lab Results - Last 24 Hours (Table) 02/24/22 02/24/22 02/25/22 Range/Units 16:51 20:39 06:17 RBC (4.30-5.90) m/uL Hgb (13.0-17.5) gm/dL Hct (39.0-53.0) % Neutrophils # (1.3-7.7) k/uL ESR (0-15) mm/hr Sodium (137-145) mmol/L Potassium (3.5-5.1) mmol/L Chloride (98-107) mmol/L BUN (9-20) mg/dL Creatinine (0.66-1.25) mg/dL Glucose (74-99) mg/dL POC Glucose (mg/dL) 203 H 145 H 193 H (70-110) mg/dL Calcium (8.4-10.2) mg/dL Total Bilirubin (0.2-1.3) mg/dL Alkaline Phosphatase (38-126) U/L C-Reactive Protein (<1.0) mg/dL Total Protein (6.3-8.2) g/dL Albumin (3.5-5.0) g/dL 02/25/22 02/25/22 02/25/22 Range/Units 07:35 07:35 11:49 RBC 3.17 L (4.30-5.90) m/uL Hgb 9.6 L (13.0-17.5) gm/dL Hct 29.9 L (39.0-53.0) % Neutrophils # 8.0 H (1.3-7.7) k/uL ESR 113 H (0-15) mm/hr Sodium 131 L (137-145) mmol/L Potassium 5.2 H (3.5-5.1) mmol/L Chloride 96 L (98-107) mmol/L BUN 40 H (9-20) mg/dL Creatinine 4.92 H (0.66-1.25) mg/dL Glucose 187 H (74-99) mg/dL POC Glucose (mg/dL) 163 H (70-110) mg/dL Calcium 8.2 L (8.4-10.2) mg/dL Total Bilirubin 2.1 H (0.2-1.3) mg/dL Alkaline Phosphatase 258 H (38-126) U/L C-Reactive Protein 8.4 H (<1.0) mg/dL Total Protein 5.6 L (6.3-8.2) g/dL Albumin 2.6 L (3.5-5.0) g/dL Assessment and Plan (1) Bacteremia Current Visit: Yes Status: Acute Code(s): R78.81 - BACTEREMIA SNOMED Code(s): 5376379 Plan: 1patient present to hospital with elevated blood pressure now with evidence of gram-positive bacteremia patient did have a recent tooth extraction and has been complaining of pain to the jaw area possible source of his bacteremia patient did have an abnormal ultrasound suspicious for cholecystitis And the patient did have elevated liver enzymes and a question of possible choledocholithiasis and cholangitis however the patient subsequently did have MRCP did not show any evidence of choledocholithiasis. Patient did have abnormal CT of the face concerning for possible osteomyelitis of the jaw 2blood cultures repeat has been negative so far 3patient did have abnormal MRI. Reported by radiologist as possible septic emboli, however the patient is clinically not behaving as the patient cleared his bacteremia very quickly, echocardiogram did show some tricuspid regurgitation but no evidence of any vegetation , patient did have a TARIK completed on 02/21/2022 that was negative for any vegetation 4- patient has shown clinical improvement and the patient sed rate and CRP are trending down and the patient white count has normalized 5patient to continue with Unasyn to finish a 6 week course of therapy and close outpatient follow-up
--- NOTE | 2022-02-25 16:11 | P.PN ---
Subjective Progress Note Date: 02/25/22 Principal diagnosis: tooth ache Patient currently doing well, no new complaint. No fevers or chills. No pain, nausea or vomiting. Objective - Vital Signs Vital signs: Vital Signs Temp 97.8 F 02/25/22 15:51 Pulse 55 L 02/25/22 15:51 Resp 15 02/25/22 15:51 BP 184/66 02/25/22 15:51 Pulse Ox 98 02/25/22 15:51 FiO2 Intake & Output 02/24/22 02/25/22 02/25/22 18:59 06:59 18:59 Intake Total 536 0 Output Total 2300 0 Balance -1764 0 0 Weight 78 kg 45.6 kg Intake: Oral 236 0 Hemodialysis 300 Output: Urine 0 Hemodialysis 2300 Other: Voiding Method Diaper Diaper # Voids 0 0 0 - Exam Constitutional: No acute distress, conversant, pleasant Eyes:Anicteric sclerae, moist conjunctiva, no lid-lag, PERRLA, ENMT: Oropharynx clear, no erythema, exudates Neck: Supple, FROM, no masses, or JVD, No carotid bruits, No thyromegaly Lungs: Clear to auscultation, Clear to percussion, Normal respiratory effort, no accessory muscle use Cardiovascular: Heart regular in rate and rhythm, No murmurs, gallops, or rubs, No peripheral edema Abdominal: Soft, Nontender, no guarding, rebound or rigidity, Normoactive bowel sounds, No hepatomegaly, No splenomegaly, No palpable mass Skin: Normal temperature, tone, texture, turgor, no induration, No subcutaneous nodules, No rash, lesions, No ulcers Extremities: No digital cyanosis, No clubbing, Pedal pulses intact and symmetrical, Radial pulses intact and symmetrical, No calf tenderness Psychiatric: Alert and oriented to person, place and time, appropriate affect, intact judgement Neuro: Muscles Strength 5/5 in all 4 extremities, Sensation to light touch grossly present throughout, Cranial nerves II-XII grossly intact, no focal sensory deficits - Labs CBC & Chem 7: 02/25/22 07:35 02/25/22 07:35 Labs: Abnormal Lab Results - Last 24 Hours (Table) 02/24/22 02/24/22 02/25/22 Range/Units 16:51 20:39 06:17 RBC (4.30-5.90) m/uL Hgb (13.0-17.5) gm/dL Hct (39.0-53.0) % Neutrophils # (1.3-7.7) k/uL ESR (0-15) mm/hr Sodium (137-145) mmol/L Potassium (3.5-5.1) mmol/L Chloride (98-107) mmol/L BUN (9-20) mg/dL Creatinine (0.66-1.25) mg/dL Glucose (74-99) mg/dL POC Glucose (mg/dL) 203 H 145 H 193 H (70-110) mg/dL Calcium (8.4-10.2) mg/dL Total Bilirubin (0.2-1.3) mg/dL Alkaline Phosphatase (38-126) U/L C-Reactive Protein (<1.0) mg/dL Total Protein (6.3-8.2) g/dL Albumin (3.5-5.0) g/dL 02/25/22 02/25/22 02/25/22 Range/Units 07:35 07:35 11:49 RBC 3.17 L (4.30-5.90) m/uL Hgb 9.6 L (13.0-17.5) gm/dL Hct 29.9 L (39.0-53.0) % Neutrophils # 8.0 H (1.3-7.7) k/uL ESR 113 H (0-15) mm/hr Sodium 131 L (137-145) mmol/L Potassium 5.2 H (3.5-5.1) mmol/L Chloride 96 L (98-107) mmol/L BUN 40 H (9-20) mg/dL Creatinine 4.92 H (0.66-1.25) mg/dL Glucose 187 H (74-99) mg/dL POC Glucose (mg/dL) 163 H (70-110) mg/dL Calcium 8.2 L (8.4-10.2) mg/dL Total Bilirubin 2.1 H (0.2-1.3) mg/dL Alkaline Phosphatase 258 H (38-126) U/L C-Reactive Protein 8.4 H (<1.0) mg/dL Total Protein 5.6 L (6.3-8.2) g/dL Albumin 2.6 L (3.5-5.0) g/dL Assessment and Plan Plan: -Acute ischemic stroke there are multiple small foci over bilateral hemisphere noted on MRI, concern for emboli and also septic emboli. Status post TARIK showed no vegetations... -Altered mental status secondary toxic metabolic encephalopathy secondary to recent opiate use, and sepsis, there is also concern for stroke.. improving. -Streptococcus bacteremia . Repeat blood cultures negative. -Sepsis present on admission patient has significant leukocytosis, had dental work done recently with evidence of right mastoiditis on MRI, source is possibly recent dental tooth extraction vs. gallbladder -Elevated transaminases with elevated bilirubin secondary to pancreatitis with elevated lipase there is also evidence of cholecystitis with sludge. -Lactic acidosis on admission, normalized -Volume overload patient missed hemodialysis secondary to hypotension and dizziness, [place] [id number] - improving -ESRD on hemodialysis. TTS., initially hypotensive, blood pressure has improved. -Recurrent ascites with frequent paracentesis s/p paracentesis on 02/16 with 4L of fluid off -Mild troponin elevation secondary to renal disease -Chronic cholecystitis with sludge, seen by surgery, no cholecystectomy indicated inpatient, will plan for outpatient. -Elevated LFTs likely sec to sepsis, resolved. -hyponatremia -Gastroesophageal reflux disease DVT prophylaxis: Subcutaneous heparin GI prophylaxis: IV pepcid Plan Avoid use of opiates Continue treatment with unasyn. ID is on board, will require total of 6 weeks of treatment, PICC line inserted. Hemodialysis as per schedule on TTS. Nephrology following Repeat blood cultures have been negative. Oral surgery suggested right mastoid debridement once patient is clinically more improved. renal diert Monitor labs closely and repeat in AM. Dispo: d/c to rehab once picc in
[2022-02-25] MEDS: HYDROmorphone 0.5 MG/0.5 ML SYRINGE IVP PRN (16:33)
[2022-02-25 17:12] LABS: Glucose,Whole Blood 132 mg/dL (70-110)
[2022-02-25 20:20] LABS: Glucose,Whole Blood 182 mg/dL (70-110)
[2022-02-25] MEDS: amLODIPine 5 MG TAB PO SCH (20:31)
[2022-02-26 06:04] LABS: Glucose,Whole Blood 175 mg/dL (70-110)
[2022-02-26] MEDS: INSULIN ASPART (NovoLOG) 100 UNIT/ML VIAL SQ SCH ×4 (06:49→20:45)
[2022-02-26] MEDS: SEVELAMER 800 MG TAB PO SCH ×4 (06:49→17:45)
[2022-02-26] MEDS: CHLORHEXIDINE GLUCONATE 15 ML CUP MUCOUS MEM SCH ×2 (08:59→20:45)
[2022-02-26] MEDS: FAMOTIDINE 20 MG TAB PO SCH (08:59)
[2022-02-26] MEDS: AMPICILLIN-SULBACTAM 3 GM in SODIUM CHLORIDE 0.9% 100 ML IVPB SCH (09:00)
[2022-02-26] MEDS: HEPARIN SODIUM,PORCINE/PF 5,000 UNIT/0.5 ML SYRINGE SQ SCH ×2 (09:00→20:45)
[2022-02-26] MEDS: traMADol 50 MG TAB PO SCH ×4 (09:00→20:44)
[2022-02-26] MEDS: carvediloL 3.125 MG TAB PO SCH ×2 (11:33→16:32)
[2022-02-26 11:34] LABS: Glucose,Whole Blood 141 mg/dL (70-110)
[2022-02-26 11:48] VITALS: BMI 25.7
[2022-02-26] MEDS: amLODIPine 5 MG TAB PO SCH ×2 (11:49→20:44)
--- NOTE | 2022-02-26 12:12 | P.PN ---
Subjective Patient is seen in follow-up for end-stage renal disease. He is maintained on hemodialysis on Monday schedule. Scheduled for dialysis today. Tolerating oral intake. Hemodynamically stable. Vital signs are stable. General: Awake. No acute distress. HEENT: Head exam is unremarkable. LUNGS: Breath sounds decreased. HEART: Rate and Rhythm are regular. ABDOMEN: Soft, mild distention. EXTREMITITES: No edema. Objective - Vital Signs Vital signs: Vital Signs Temp 98.1 F 02/26/22 08:00 Pulse 55 L 02/26/22 08:00 Resp 16 02/26/22 08:00 BP 144/74 02/26/22 08:00 Pulse Ox 98 02/26/22 08:00 FiO2 Intake & Output 02/25/22 02/26/22 02/26/22 18:59 06:59 18:59 Intake Total 0 120 118 Output Total 200 Balance 0 -80 118 Weight 76.8 kg 76.8 kg Intake: Oral 0 120 118 Output: Urine 200 Other: # Voids 0 - Labs CBC & Chem 7: 02/25/22 07:35 02/25/22 07:35 Labs: Abnormal Lab Results - Last 24 Hours (Table) 02/25/22 02/25/22 02/26/22 Range/Units 17:11 20:19 06:02 POC Glucose (mg/dL) 132 H 182 H 175 H (70-110) mg/dL 02/26/22 Range/Units 11:33 POC Glucose (mg/dL) 141 H (70-110) mg/dL Assessment and Plan Plan: Assessment: 1. End-stage renal disease maintained on hemodialysis on Monday schedule. 2. Ascites requiring frequent paracentesis. Last on 02/16/2022 with 4 L drained. 3. Strep bacteremia status post tooth extraction. On antibiotics. ID following. TARIK showed no intracardiac thrombus. 4. Anemia of chronic kidney disease maintained on Aranesp. 5. Hypertension with chronic kidney disease. Stable. 6. Chronic kidney disease mineral bone disease. On Renvela. 7. Hyponatremia secondary to chronic kidney disease. Expect improvement postdialysis. 8. Metabolic acidosis secondary to chronic kidney disease. Improved postdialysis. 9. Chronic systolic CHF with ejection fraction of 45%. Plan: Hemodialysis today. Increase dose of Renvela.
--- NOTE | 2022-02-26 12:14 | P.PN ---
Subjective Progress Note Date: 02/26/22 Principal diagnosis: tooth ache Patient doing well, no overnight events. He feels better. No complaints. He states that he might get stronge enough to go home eventually. Objective - Vital Signs Vital signs: Vital Signs Temp 98.1 F 02/26/22 08:00 Pulse 55 L 02/26/22 08:00 Resp 16 02/26/22 08:00 BP 144/74 02/26/22 08:00 Pulse Ox 98 02/26/22 08:00 FiO2 Intake & Output 02/25/22 02/26/22 02/26/22 18:59 06:59 18:59 Intake Total 0 120 118 Output Total 200 Balance 0 -80 118 Weight 76.8 kg 76.8 kg Intake: Oral 0 120 118 Output: Urine 200 Other: # Voids 0 - Exam Constitutional: No acute distress, conversant, pleasant Eyes:Anicteric sclerae, moist conjunctiva, no lid-lag, PERRLA, ENMT: Oropharynx clear, no erythema, exudates Neck: Supple, FROM, no masses, or JVD, No carotid bruits, No thyromegaly Lungs: Clear to auscultation, Clear to percussion, Normal respiratory effort, no accessory muscle use Cardiovascular: Heart regular in rate and rhythm, No murmurs, gallops, or rubs, No peripheral edema Abdominal: Soft, Nontender, no guarding, rebound or rigidity, Normoactive bowel sounds, No hepatomegaly, No splenomegaly, No palpable mass Skin: Normal temperature, tone, texture, turgor, no induration, No subcutaneous nodules, No rash, lesions, No ulcers Extremities: No digital cyanosis, No clubbing, Pedal pulses intact and symmetrical, Radial pulses intact and symmetrical, No calf tenderness Psychiatric: Alert and oriented to person, place and time, appropriate affect, intact judgement Neuro: Muscles Strength 5/5 in all 4 extremities, Sensation to light touch grossly present throughout, Cranial nerves II-XII grossly intact, no focal sensory deficits - Labs CBC & Chem 7: 02/25/22 07:35 02/25/22 07:35 Labs: Abnormal Lab Results - Last 24 Hours (Table) 02/25/22 02/25/22 02/26/22 Range/Units 17:11 20:19 06:02 POC Glucose (mg/dL) 132 H 182 H 175 H (70-110) mg/dL 02/26/22 Range/Units 11:33 POC Glucose (mg/dL) 141 H (70-110) mg/dL Assessment and Plan Plan: -Acute ischemic stroke there are multiple small foci over bilateral hemisphere noted on MRI, concern for emboli and also septic emboli. Status post TARIK showed no vegetations... -Altered mental status secondary toxic metabolic encephalopathy secondary to recent opiate use, and sepsis, there is also concern for stroke.. improving. -Streptococcus bacteremia . Repeat blood cultures negative. -Sepsis present on admission patient has significant leukocytosis, had dental work done recently with evidence of right mastoiditis on MRI, source is possibly recent dental tooth extraction vs. gallbladder -Elevated transaminases with elevated bilirubin secondary to pancreatitis with elevated lipase there is also evidence of cholecystitis with sludge. -Lactic acidosis on admission, normalized -Volume overload patient missed hemodialysis secondary to hypotension and dizziness, [place] [address] - improving -ESRD on hemodialysis. TTS., initially hypotensive, blood pressure has improved. -Recurrent ascites with frequent paracentesis s/p paracentesis on 02/16 with 4L of fluid off -Mild troponin elevation secondary to renal disease -Chronic cholecystitis with sludge, seen by surgery, no cholecystectomy indicated inpatient, will plan for outpatient. -Elevated LFTs likely sec to sepsis, resolved. -hyponatremia -Gastroesophageal reflux disease DVT prophylaxis: Subcutaneous heparin GI prophylaxis: IV pepcid Plan Avoid use of opiates Continue treatment with unasyn. ID is on board, will require total of 6 weeks of treatment, PICC line inserted. Hemodialysis as per schedule on TTS. Nephrology following Repeat blood cultures have been negative. Oral surgery suggested right mastoid debridement once patient is clinically more improved. renal diert Dispo: d/c to rehab Monday
--- NOTE | 2022-02-26 14:52 | P.PN ---
Subjective Progress Note Date: 02/26/22 Principal diagnosis: bacteremia Patient is a 61-year-old male with a past medical history significant for end-stage renal disease on hemodialysis through the left arm AV fistula patient presenting to the ER 2 days ago on 02/12/2022, patient was noticed to have elevated blood pressure at the dialysis center the patient advised to go to the hospital patient be complaining of feeling weak since his teeth work done a week before presentation to the hospital , patient was noticed to have streptococcal bacteremia also elevated liver enzymes concern for choledocholithiasis however MRCP did not show any stones in the CBD he did have a CT of the face with evidence of right lower jaw Osteomyelitis. On today's evaluation that is 02/26/2022, the patient remains to be afebrile or chills, the patient pain to the right lower jaw area has decreased in intensity, the patient is breathing comfortably on room air, the patient denies chest pain shortness of breath or cough, patient denies nausea no vomiting and no diarrhea, patient is currently waiting for placement Objective - Vital Signs Vital signs: Vital Signs Temp 98.1 F 02/26/22 08:00 Pulse 55 L 02/26/22 08:00 Resp 16 02/26/22 08:00 BP 144/74 02/26/22 08:00 Pulse Ox 98 02/26/22 08:00 FiO2 Intake & Output 02/25/22 02/26/22 02/26/22 18:59 06:59 18:59 Intake Total 0 120 118 Output Total 200 Balance 0 -80 118 Weight 76.8 kg 76.8 kg Intake: Oral 0 120 118 Output: Urine 200 Other: # Voids 0 - Exam GENERAL DESCRIPTION: Middle-aged male lying in bed in no distress HEENT: Right lower jaw swelling and tenderness has decreased RESPIRATORY SYSTEM: Unlabored breathing , decreased breath sounds at bases HEART: S1 S2 regular rate and rhythm , ABDOMEN: Soft , no tenderness EXTREMITIES: No edema feet - Labs CBC & Chem 7: 02/25/22 07:35 02/25/22 07:35 Labs: Abnormal Lab Results - Last 24 Hours (Table) 02/25/22 02/25/22 02/26/22 Range/Units 17:11 20:19 06:02 POC Glucose (mg/dL) 132 H 182 H 175 H (70-110) mg/dL 02/26/22 Range/Units 11:33 POC Glucose (mg/dL) 141 H (70-110) mg/dL Assessment and Plan (1) Bacteremia Current Visit: Yes Status: Acute Code(s): R78.81 - BACTEREMIA SNOMED Code(s): 0543977 Plan: 1patient with streptococcal bacteremia patient complaining of pain to the right lower jaw and the patient did have a abnormal CT suspicious for Osteomye litis of the right lower jaw, the patient repeat blood culture has been negative 2patient to continue with the Unasyn to finish a 6 week course of therapy and monitor clinical course closely Time with Patient: Less than 30
[2022-02-26] MEDS: ASPIRIN 81 MG PO SCH (15:17)
[2022-02-26 16:31] LABS: Glucose,Whole Blood 111 mg/dL (70-110)
[2022-02-26 20:00] LABS: Glucose,Whole Blood 170 mg/dL (70-110)
[2022-02-27 06:11] LABS: Glucose,Whole Blood 157 mg/dL (70-110)
[2022-02-27] MEDS: traMADol 50 MG TAB PO SCH ×4 (07:44→21:16)
[2022-02-27] MEDS: carvediloL 3.125 MG TAB PO SCH ×2 (07:44→16:51)
[2022-02-27] MEDS: FAMOTIDINE 20 MG TAB PO SCH (07:44)
[2022-02-27] MEDS: ASPIRIN 81 MG PO SCH (07:44)
[2022-02-27] MEDS: amLODIPine 5 MG TAB PO SCH ×2 (07:44→21:17)
[2022-02-27] MEDS: HEPARIN SODIUM,PORCINE/PF 5,000 UNIT/0.5 ML SYRINGE SQ SCH ×2 (07:44→21:18)
[2022-02-27] MEDS: INSULIN ASPART (NovoLOG) 100 UNIT/ML VIAL SQ SCH ×4 (07:45→21:19)
[2022-02-27] MEDS: AMPICILLIN-SULBACTAM 3 GM in SODIUM CHLORIDE 0.9% 100 ML IVPB SCH (07:45)
[2022-02-27] MEDS: CHLORHEXIDINE GLUCONATE 15 ML CUP MUCOUS MEM SCH ×2 (07:46→21:19)
[2022-02-27] MEDS: DARBEPOETIN ALFA 40 MCG/0.4 ML SYRINGE SQ SCH (08:31)
[2022-02-27] MEDS: SEVELAMER 800 MG TAB PO SCH ×3 (08:31→16:48)
--- NOTE | 2022-02-27 11:01 | P.PN ---
Subjective Patient is seen in follow-up for end-stage renal disease. He is maintained on hemodialysis on Monday schedule. Tolerating oral intake. Hemodynamically stable. Overall much improved. Objective - Vital Signs Vital signs: Vital Signs Temp 98.4 F 02/27/22 07:02 Pulse 61 02/27/22 07:47 Resp 18 02/27/22 07:47 BP 143/67 02/27/22 07:02 Pulse Ox 96 02/27/22 07:06 FiO2 Intake & Output 02/26/22 02/27/22 02/27/22 18:59 06:59 18:59 Intake Total 518 420 Output Total 4400 Balance -3882 420 Weight 76.8 kg 58 kg Intake: Oral 118 420 Hemodialysis 400 Output: Hemodialysis 2400 Other 1999 Other: Voiding Method Diaper Diaper # Voids 2 # Bowel Movements 1 - Exam Patient is awake, comfortable, no acute distress Alert oriented 3. Examination of the heart S1 and S2 Examination of the lungs bilateral breath sounds are heard Abdomen is soft nontender Examination lower extremities shows no edema PROGRAM STRATEGIST exam shows patient is moving all 4 extremities but he is confused. - Labs CBC & Chem 7: 02/25/22 07:35 02/25/22 07:35 Labs: Abnormal Lab Results - Last 24 Hours (Table) 02/26/22 02/26/22 02/26/22 Range/Units 11:33 16:29 19:59 POC Glucose (mg/dL) 141 H 111 H 170 H (70-110) mg/dL 02/27/22 Range/Units 06:09 POC Glucose (mg/dL) 157 H (70-110) mg/dL Assessment and Plan Assessment: 1. End-stage renal disease on hemodialysis on a Monday schedule via AV fistula left arm 2. Sepsis associated with tooth extraction. Blood cultures positive for alphahemolytic streptococcus with repeat blood cultures negative. Maintained on antibiotics. Being followed by ID 3. Lactic acidosis 4. CK D mineral bone disorder 5. Hypertension with CK D stage IV 6. Altered mentation 7. Elevated liver enzymes mostly secondary to hypotension. Ultrasound shows possible acute cholecystitis . Status post MRCP which showed mild extrahepatic biliary duct allocation with CBD at 8 mm Plan: Hemodialysis on 03/01/2022
[2022-02-27 11:42] LABS: Glucose,Whole Blood 114 mg/dL (70-110)
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
--- NOTE | 2022-02-27 12:27 | P.PN ---
Subjective Progress Note Date: 02/27/22 Principal diagnosis: tooth ache Patient doing well, no overnight events. No complaints of pain or shortness of breath. No fevers or chills. Objective - Vital Signs Vital signs: Vital Signs Temp 98.4 F 02/27/22 07:02 Pulse 61 02/27/22 07:47 Resp 18 02/27/22 07:47 BP 143/67 02/27/22 07:02 Pulse Ox 96 02/27/22 07:06 FiO2 Intake & Output 02/26/22 02/27/22 02/27/22 18:59 06:59 18:59 Intake Total 518 420 Output Total 4400 Balance -3882 420 Weight 76.8 kg 58 kg Intake: Oral 118 420 Hemodialysis 400 Output: Hemodialysis 2400 Other 1999 Other: Voiding Method Diaper Diaper # Voids 2 # Bowel Movements 1 - Exam Constitutional: No acute distress, conversant, pleasant Eyes:Anicteric sclerae, moist conjunctiva, no lid-lag, PERRLA, ENMT: Oropharynx clear, no erythema, exudates Neck: Supple, FROM, no masses, or JVD, No carotid bruits, No thyromegaly Lungs: Clear to auscultation, Clear to percussion, Normal respiratory effort, no accessory muscle use Cardiovascular: Heart regular in rate and rhythm, No murmurs, gallops, or rubs, No peripheral edema Abdominal: Soft, Nontender, no guarding, rebound or rigidity, Normoactive bowel sounds, No hepatomegaly, No splenomegaly, No palpable mass Skin: Normal temperature, tone, texture, turgor, no induration, No subcutaneous nodules, No rash, lesions, No ulcers Extremities: No digital cyanosis, No clubbing, Pedal pulses intact and symmetrical, Radial pulses intact and symmetrical, No calf tenderness Psychiatric: Alert and oriented to person, place and time, appropriate affect, intact judgement Neuro: Muscles Strength 5/5 in all 4 extremities, Sensation to light touch grossly present throughout, Cranial nerves II-XII grossly intact, no focal sensory deficits - Labs CBC & Chem 7: 02/25/22 07:35 02/25/22 07:35 Labs: Abnormal Lab Results - Last 24 Hours (Table) 02/26/22 02/26/22 02/27/22 Range/Units 16:29 19:59 06:09 POC Glucose (mg/dL) 111 H 170 H 157 H (70-110) mg/dL 02/27/22 Range/Units 11:41 POC Glucose (mg/dL) 114 H (70-110) mg/dL Assessment and Plan Plan: -Acute ischemic stroke there are multiple small foci over bilateral hemisphere noted on MRI, concern for emboli and also septic emboli. Status post TARIK showed no vegetations... -Altered mental status secondary toxic metabolic encephalopathy secondary to recent opiate use, and sepsis, there is also concern for stroke.. improving. -Streptococcus bacteremia . Repeat blood cultures negative. -Sepsis present on admission patient has significant leukocytosis, had dental work done recently with evidence of right mastoiditis on MRI, source is possibly recent dental tooth extraction vs. gallbladder -Elevated transaminases with elevated bilirubin secondary to pancreatitis with elevated lipase there is also evidence of cholecystitis with sludge. -Lactic acidosis on admission, normalized -Volume overload patient missed hemodialysis secondary to hypotension and dizziness, [place] [address] - improving -ESRD on hemodialysis. TTS., initially hypotensive, blood pressure has improve d. -Recurrent ascites with frequent paracentesis s/p paracentesis on 02/16 with 4L of fluid off -Mild troponin elevation secondary to renal disease -Chronic cholecystitis with sludge, seen by surgery, no cholecystectomy indicated inpatient, will plan for outpatient. -Elevated LFTs likely sec to sepsis, resolved. -hyponatremia -Gastroesophageal reflux disease DVT prophylaxis: Subcutaneous heparin GI prophylaxis: IV pepcid Plan Avoid use of opiates Continue treatment with unasyn. ID is on board, will require total of 6 weeks of treatment, PICC line inserted. Hemodialysis as per schedule on TTS. Nephrology following Repeat blood cultures have been negative. Oral surgery suggested right mastoid debridement once patient is clinically more improved. renal diert Dispo: d/c to rehab Monday
--- NOTE | 2022-02-27 12:41 | P.PN ---
Subjective Progress Note Date: 02/27/22 Principal diagnosis: bacteremia Patient is a 61-year-old male with a past medical history significant for end-stage renal disease on hemodialysis through the left arm AV fistula patient presenting to the ER 2 days ago on 02/12/2022, patient was noticed to have elevated blood pressure at the dialysis center the patient advised to go to the hospital patient be complaining of feeling weak since his teeth work done a week before presentation to the hospital , patient was noticed to have streptococcal bacteremia also elevated liver enzymes concern for choledocholithiasis however MRCP did not show any stones in the CBD he did have a CT of the face with evidence of right lower jaw Osteomyelitis. On today's evaluation that is 02/27/2022, the patient denies any fever or chills, the patient pain to the right lower jaw area has decreased in intensity and the patient denies having any difficulty swallowing, the patient is breathing comfortably on room air, the patient denies chest pain shortness of breath or cough, patient denies nausea no vomiting and no diarrhea Objective - Vital Signs Vital signs: Vital Signs Temp 98.4 F 02/27/22 07:02 Pulse 61 02/27/22 07:47 Resp 18 02/27/22 07:47 BP 143/67 02/27/22 07:02 Pulse Ox 96 02/27/22 07:06 FiO2 Intake & Output 02/26/22 02/27/22 02/27/22 18:59 06:59 18:59 Intake Total 518 420 Output Total 4400 Balance -3882 420 Weight 76.8 kg 58 kg Intake: Oral 118 420 Hemodialysis 400 Output: Hemodialysis 2400 Other 1999 Other: Voiding Method Diaper Diaper # Voids 2 # Bowel Movements 1 - Exam GENERAL DESCRIPTION: Middle-aged male lying in bed in no distress HEENT: Right lower jaw swelling and tenderness has decreased RESPIRATORY SYSTEM: Unlabored breathing , decreased breath sounds at bases HEART: S1 S2 regular rate and rhythm , ABDOMEN: Soft , no tenderness EXTREMITIES: No edema feet - Labs CBC & Chem 7: 02/25/22 07:35 02/25/22 07:35 Labs: Abnormal Lab Results - Last 24 Hours (Table) 02/26/22 02/26/22 02/27/22 Range/Units 16:29 19:59 06:09 POC Glucose (mg/dL) 111 H 170 H 157 H (70-110) mg/dL 02/27/22 Range/Units 11:41 POC Glucose (mg/dL) 114 H (70-110) mg/dL Assessment and Plan (1) Bacteremia Current Visit: Yes Status: Acute Code(s): R78.81 - BACTEREMIA SNOMED Code(s): 7654306 Plan: 1patient with streptococcal bacteremia patient complaining of pain to the right lower jaw and the patient did have a abnormal CT suspicious for Osteomyelitis of the right lower jaw, the patient repeat blood culture has been negative 2patient seemed to have Some Clinical Improvement and Will continue with the Unasyn to finish a 6 week course of therapy and monitor clinical course closely Time with Patient: Less than 30
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
[2022-02-27 16:46] LABS: Glucose,Whole Blood 162 mg/dL (70-110)
[2022-02-27 20:50] LABS: Glucose,Whole Blood 121 mg/dL (70-110)
[2022-02-27] MEDS: ATORVASTATIN 20 MG TAB PO SCH (21:16)
[2022-02-28 06:20] LABS: Glucose,Whole Blood 163 mg/dL (70-110)
[2022-02-28] MEDS: INSULIN ASPART (NovoLOG) 100 UNIT/ML VIAL SQ SCH ×4 (06:26→21:23)
[2022-02-28] MEDS: SEVELAMER 800 MG TAB PO SCH ×3 (06:28→17:19)
[2022-02-28] MEDS: carvediloL 3.125 MG TAB PO SCH ×2 (06:28→17:19)
[2022-02-28] MEDS: ASPIRIN 81 MG PO SCH (08:44)
[2022-02-28] MEDS: FAMOTIDINE 20 MG TAB PO SCH (08:44)
[2022-02-28] MEDS: amLODIPine 5 MG TAB PO SCH ×2 (08:44→20:29)
[2022-02-28] MEDS: HEPARIN SODIUM,PORCINE/PF 5,000 UNIT/0.5 ML SYRINGE SQ SCH ×2 (08:44→08:45)
[2022-02-28] MEDS: traMADol 50 MG TAB PO SCH ×2 (08:45→12:39)
[2022-02-28] MEDS: AMPICILLIN-SULBACTAM 3 GM in SODIUM CHLORIDE 0.9% 100 ML IVPB SCH (08:45)
[2022-02-28 11:02] LABS: Glucose,Whole Blood 146 mg/dL (70-110)
--- NOTE | 2022-02-28 11:12 | P.PN ---
Subjective Patient is seen in follow-up for end-stage renal disease. He is maintained on hemodialysis on Monday schedule. Tolerating oral intake. Hemodynamically stable. Overall much improved. Objective - Vital Signs Vital signs: Vital Signs Temp 97.7 F 02/28/22 08:13 Pulse 55 L 02/28/22 08:45 Resp 15 02/28/22 08:45 BP 157/52 02/28/22 08:13 Pulse Ox 97 02/28/22 08:13 FiO2 Intake & Output 02/27/22 02/28/22 02/28/22 18:59 06:59 18:59 Intake Total 420 Balance 420 Weight 69.5 kg Intake: Oral 420 Other: Voiding Method Diaper Diaper # Voids 2 3 # Bowel Movements 3 - Exam Patient is awake, comfortable, no acute distress Alert oriented 3. Examination of the heart S1 and S2 Examination of the lungs bilateral breath sounds are heard Abdomen is soft nontender Examination lower extremities shows no edema PLATFORM BUILDER exam shows patient is moving all 4 extremities - Labs CBC & Chem 7: 02/25/22 07:35 02/25/22 07:35 Labs: Abnormal Lab Results - Last 24 Hours (Table) 02/27/22 02/27/22 02/27/22 Range/Units 11:41 16:45 20:37 POC Glucose (mg/dL) 114 H 162 H 121 H (70-110) mg/dL 02/28/22 02/28/22 Range/Units 06:17 11:01 POC Glucose (mg/dL) 163 H 146 H (70-110) mg/dL Assessment and Plan Assessment: 1. End-stage renal disease on hemodialysis on a Monday schedule via AV fistula left arm 2. Sepsis associated with tooth extraction. Blood cultures positive for alphahemolytic streptococcus with repeat blood cultures negative. Maintained on antibiotics. Being followed by ID 3. Lactic acidosis 4. CK D mineral bone disorder 5. Hypertension with CK D stage IV 6. Altered mentation 7. Elevated liver enzymes mostly secondary to hypotension. Ultrasound shows possible acute cholecystitis . Status post MRCP which showed mild extrahepatic biliary duct allocation with CBD at 8 mm Plan: Hemodialysis in a.m.
[2022-02-28] MEDS: CHLORHEXIDINE GLUCONATE 15 ML CUP MUCOUS MEM SCH ×2 (11:25→20:29)
--- NOTE | 2022-02-28 14:25 | P.PN ---
Subjective Progress Note Date: 02/28/22 Principal diagnosis: bacteremia Patient is a 61-year-old male with a past medical history significant for end-stage renal disease on hemodialysis through the left arm AV fistula patient presenting to the ER 2 days ago on 02/12/2022, patient was noticed to have elevated blood pressure at the dialysis center the patient advised to go to the hospital patient be complaining of feeling weak since his teeth work done a week before presentation to the hospital , patient was noticed to have streptococcal bacteremia also elevated liver enzymes concern for choledocholithiasis however MRCP did not show any stones in the CBD he did have a CT of the face with evidence of right lower jaw Osteomyelitis. On today's evaluation that is 02/28/2022, the patient continues to be afebrile, the patient pain to the right lower jaw area has decreased in intensity, the patient is breathing comfortably on room air, no chest pain shortness of breath or cough no abdominal pain or diarrhea Objective - Vital Signs Vital signs: Vital Signs Temp 98.1 F 02/28/22 13:00 Pulse 56 L 02/28/22 13:00 Resp 16 02/28/22 13:00 BP 148/72 02/28/22 13:00 Pulse Ox 97 02/28/22 13:00 FiO2 Intake & Output 02/27/22 02/28/22 02/28/22 18:59 06:59 18:59 Intake Total 420 Balance 420 Weight 69.5 kg Intake: Oral 420 Other: Voiding Method Diaper Diaper # Voids 2 3 # Bowel Movements 3 - Exam GENERAL DESCRIPTION: Middle-aged male lying in bed in no distress HEENT: Right lower jaw swelling and tenderness has decreased RESPIRATORY SYSTEM: Unlabored breathing , decreased breath sounds at bases HEART: S1 S2 regular rate and rhythm , ABDOMEN: Soft , no tenderness EXTREMITIES: No edema feet - Labs CBC & Chem 7: 02/25/22 07:35 02/25/22 07:35 Labs: Abnormal Lab Results - Last 24 Hours (Table) 02/27/22 02/27/22 02/28/22 Range/Units 16:45 20:37 06:17 POC Glucose (mg/dL) 162 H 121 H 163 H (70-110) mg/dL 02/28/22 Range/Units 11:01 POC Glucose (mg/dL) 146 H (70-110) mg/dL Assessment and Plan (1) Bacteremia Current Visit: Yes Status: Acute Code(s): R78.81 - BACTEREMIA SNOMED Code(s): 9673474 Plan: 1patient with streptococcal bacteremia patient complaining of pain to the right lower jaw and the patient did have a abnormal CT suspicious for Osteom yelitis of the right lower jaw, the patient repeat blood culture has been negative 2patient slowly clinically improving and is currently being treated with the Unasyn to finish a 6 week course of therapy , waiting for placement Time with Patient: Less than 30
[2022-02-28 17:06] LABS: Glucose,Whole Blood 186 mg/dL (70-110)
--- NOTE | 2022-02-28 19:59 | P.PN ---
Progress Note - Text Progress Note Date: 02/28/22 Hospital course: Patient was 61-year-old male came in with complaints of tiredness weakness drows iness. Patient has been constipated as well. Patient was given Tylenol 3 after he is a dental procedure patient pain is not bad at this time. Patient the blood pressure is extremely low was given IV fluids in ER patient is Monday and Monday hemodialysis schedule a patient doesn't have a short is a doesn't have any pulmonary edema on the chest x-ray because of which are hemanalysis be is being held at this time and nephrology's recording cautious hydration because of his hypotension. Patient's sodium is also low at 134. Patient appears to have toxicity from codeine and decreased excretion because of renal dysfunction. Patient appears bit encephalopathic 02/13/2022 Patient is evaluated today on medical floor. He is confused and drowsy. Nursing reports increased confusion. Blood pressure continues to run low in the high 90s. Remains afebrile. Sinus bradycardia on the heart monitor. He is receiving IV normal saline at 75 mls per hour. Plan per nephrology is to undergo hem odialysis today. Patient does have increased abdominal distention today, has positive bowel sounds there is no focal tenderness noted on exam. AST and ALT are increased. He did have lactic acidosis on admission as well. He does have consistent leukocytosis today 27.4. Blood cultures are currently pending at this time. Creatinine shows worsening renal function. He has not had any urine output per patient he does make some urine. He reports that bowels are moving. Will check a procalcitonin level and if elevated add empiric antibiotics and consult infectious disease. 02/14/2022 Patient evaluated on medical floor. He continues to be drowsy, he is arousable. Speech is slurred. He does have right facial droop today unclear if this is secondary to mild right facial swelling there is some tenderness to touch. No focal weakness noted however he has significant generalized weakness. Procalcitonin level came back yesterday at >100 and he was started on IV cefepime, blood cultures came back positive last night gram positive, streptococcus species. Infectious disease on consult and IV vancomycin has been added. Liver enzymes and bili remain elevated and abdominal ultrasound was done which shows gallbladder with sludge possible acute cholecystitis. Lipase is elevated at 5815. Patient is scheduled for MRCP to evaluated for choledocholelisthiasis. White count today 22.40, hgb 9.4, sodium 136, BUN 51.3, creatinine 5.7 today. Glucose in the 100s. 02/15/2022 Patient evaluated on step down unit. Negative brain CT. Neurology work up in place. He is more awake today alert x 1 to 2. He is undergoing hemodialysis today. Blood cultures showing alpha hemolytic streptococcus. Patient had MRCP today, surgery following and feel elevated enzymes secondary to acute pancreatitis. 02/16/2022 Patient is evaluated today on step down unit. He is more awake and alert, currently alert x 2 to 3. He continues to be drowsy. Continues with right sided facial droop, no focal weakness noted. Patient had MRI completed today showing scattered bilateral punctuate white matter changes compatible with acute ischemic changes. Possibly from septic emboli. Possibly right mastoiditis. He does complain of some pain and numbness to the face adjacent to where the tooth was extracted on his right upper jaw. Dr. Alcaraz has been consulted for further evaluation of this. Blood cultures showing alpha hemolytic streptococcus. Infectious disease following cultures, on IV unasyn. Echocardiogram has been ordered to evaluate for endocarditis. Case discussed with general surgery, MRCP has been completed there is mild extrahepatic duct dilation with the CBD measuring up to 8mm with no definitive filling defect, stricture or obstructing mass lesion noted within the limitations of exam. There is mild gallbladder wall thickening suggestive of gallbladder sludge. Patient has hepatosplenomegaly with iron deposition. Moderate volume ascites. White count is 18.1 today, hemoglobin 9.4, neutrophils 14.8. Sodium 133 today, potassium 2.4. Creatinine 3.76. Bilirubin continues to elevate up to 6.3 he does appear more jaundice today. Liver enzymes are improving overall. Lipase 1394. He remains afebrile, heart rate 54, blood pressure 120/65, 97% on room air. 02/17/2022 Patient is evaluated today resting in bed more awake and alert. Denies pain. Status post paracentesis with 4L of fluid off. Has standing over for biweekly paracentesis. Echocardiogram has been completed showing normal LV systolic function with moderate pulmonary hypertension and also moderate to severe tricuspid regurgitation. Cardiology has been consulted for possible TARIK. General surgery has evaluated the patient today and recommending possible laproscopic cholecystectomy secondary to chronic cholecystitis with sludge pending improveme nt in his medical condition. IV unasyn can cause biliary stasis this was discussed with ID consultation and antibiotics have been changed to ceftriaxone and repeat labs tomorrow. He is being dialyzed today. Maxillary facial CT is pending at this time. Remains afebrile, heart rate 51, blood pressure 122/60, 95% room air. Labs today showing white count 16.3, hgb 9.0. Sodium 134, potassium 4.0, Alt marleni bilirubin is slightly up today at 6.6, AST/ALT and alk phos have improved. CRP 20.5. Lipase 1015. Lipid panel is significantly abnormal showing triglyceride level 317, total cholesterol 209, LDL 133, HDL 63. 02/18/2022 Patient is currently resting in bed. Awake alert but seems to be confused and lethargic. Patient has been afebrile. No complaints of chest pain or worsening shortness of breath. No nausea vomiting abdominal pain and diarrhea. Blood cultures showed all for hemolytic streptococcus. Patient remains on antibiotics in the form of ceftriaxone. Patient was seen by cardiology due to bacteremia and possible TARIK. MRI brain done on 02/16/2022 showed scattered bilateral cerebral punctate white matter changes compatible with acute ischemic changes best visualized on diffuse weighted imaging. Consider septic emboli within the differential. Clinical correlation for right mastoiditis. Patient is otherwise scheduled for hemodialysis TTS. Next hemodialysis is tomorrow. 02/19/2022 Patient's condition remains the same. Awake alert but seems lethargic. No facial droop noted. No complains of nausea vomiting. Patient has been afebrile. Repeat blood cultures have been negative. Patient is being continued on antibiotics the form of ceftriaxone. Discussed with neurosurgery and recommending debridement of right mastoiditis once medically stable. Cardiology is planning for TARIK on Monday if needed. Laboratory data showed WBC 15.1 hemoglobin 9.5 and platelets 252 Sodium 133 potassium 3.9 bicarb is 21 BUN 47 creatinine 5.39, AST 48 DT 8 alk phos 321 and albumin 2.3. Blood sugar is 119. 02/20/2022 Patient is currently lying in bed. She is willing confused. Somewhat weak but denies any complaints of cough or sputum production. Afebrile. No nausea vo miting abdominal pain or diarrhea. Patient was dialyzed yesterday. Patient does have poor appetite. Laboratory pressure WBC 14.0 hemoglobin 9.4 and platelets 300 Sodium 133 potassium 4.3 chloride 99 bicarb is 22 BUN 35 creatinine 4.17 and CRP level is 8.9 02/22/2022 Patient is more awake and oriented today. Complains of exacerbation requesting IV pain medications. Patient has been afebrile. No nausea vomiting abdominal pain or diarrhea. Patient has been afebrile will continue on Unasyn. Hemodialysis as per schedule. Laboratory pressure WBC 12.2 hemoglobin 9.5 platelets 429 Sodium 130 potassium 4.7 chloride 97 bicarb is 20 BUN 16 creatinine 7.37 Phosphorus 9.0 CRP 16.1 Patient underwent TARIK which is negative for vegetations. Repeat blood cultures have been negative. Patient is maintained on IV antibiotics. ID is on board. 02/24/2020 Patient is resting in the bed. Seems to be more awake and oriented. No complaints of chest pain or shortness of breath. No nausea vomiting abdominal pain. Patient complains of right jaw pain slightly improved today compared to yesterday. No headache or dizziness or lightheadedness. No fever no chills. Patient is being current on IV antibiotics Unasyn. Patient did have patient CT concerning for osteomyelitis of the jaw. May need IV antibiotic course via PICC line. No debridement as per OMFS anticipate improvement. Repeat blood cultures have been negative. Hemodialysis as Scheduled Laboratory showed WBC 11.2 hemoglobin 9.6 and platelets 471 Sodium 134 potassium 4.3 chloride 97 bicarb is 28 BUN 14 creatinine 5.17 and creatinine blood sugar is 143 albumin 2.3 February 24 through February 27 patient covered by [facility] 02/28/2022: I assumed care of the patient today. Eating fair. Soft diet. Some pain in the right jaw area improving. Had a bowel movement. Hemodialyzed yesterday. Sitting up in bed. Past medical history to include: Diabetes, GERD, end-stage kidney disease and hemodialysis for last 2 years, hypertension, reflux, Social history: Patient smoked for 22 years stopped 22 years ago. Smoked upto 2 packs a day. Alcohol occasionally. . Physical examination: VITAL SIGNS: 98.1, 56, 16, 140/72, 97% room air GENERAL: Propped up in bed, comfortable EYES: Pupils equal. Conjunctiva normal. HEENT: External appearance of nose ears normal. Some swelling over the right lateral face NECK: JVD unable to assess; masses not palpable. HEART: First and second heart sounds are normal; significant edema LUNGS: Respiratory rate normal, decreased breath sounds. ABDOMEN: Soft, distended, dullness to percussion the flanks nontender, liver spleen not palpable, no masses palpable. PSYCH: AO 3, mood and affect tired NEUROLOGICAL: Right facial weakness. Some swelling over the right lateral face Investigations: CT facial bones [02/17/2022]: Bony distractor processes of the posterior right maxilla at the location the first second and third molars which are absent. Extends into the right maxillary sinus. Soft tissue areas seen. Suspected osteomyelitis. Peritoneal fluid: No malignant cells 2-D echocardiogram: EF 55%. Moderate pulmonary hypertension. Moderate to severe tricuspid regurgitation Carotid Doppler: Less than 50% stenosis bilateral carotid bifurcation... Head and MRA: No aneurysm. Nonvisualization of the right vertebral artery. Brain MRI: Scattered bilateral cerebral punctate white matter changes compatible with acute ischemic changes. Abdominal ultrasound: Hepatosplenomegaly with some iron deposition. Moderate volume ascites. Mild extrahepatic biliary duct dilatation with CPD 8 mm. No definite filling defect. Assessment and plan -Acute ischemic stroke there are multiple small foci over bilateral hemisphere noted on MRI, concern for emboli and also septic emboli. Status post TARIK showed no vegetations. Aspirin .. -Altered mental status secondary toxic metabolic encephalopathy secondary to recent opiate use, and sepsis, there is also concern for stroke.. Improved -Sepsis from Streptococcus bacteremia secondary to acute osteomyelitis of the right maxillary bone and acute right mastoiditis. With recent surgery to right upper molar being removed IV Unasyn for 6 weeks. Follow up with oral surgery outpatient for right mastoid debridement. -Chronic cholecystitis with sludge. Seen by Dr. Kasper from general surgery. for outpatient laparoscopic cholecystectomy. -Lactic acidosis from sepsis, corrected -Volume overload patient missed hemodialysis secondary to hypotension and dizziness, : Improved -ESRD on hemodialysis. TTS. -Anemia of chronic kidney disease Aranesp -Recurrent ascites with frequent paracentesis s/p paracentesis on 02/16 with 4L of fluid off -Mild troponin elevation secondary to renal disease -Essential hypertension Amlodipine, Coreg, aspirin -Hyperlipidemia Lipitor -Chronic kidney disease mineral bone disease Renvela -hyponatremia -Gastroesophageal reflux disease Pepcid -Disposition: Possible rehab Discussed with patient. Increase activity. Probable DC 2 rehab tomorrow
[2022-02-28] MEDS: ATORVASTATIN 20 MG TAB PO SCH (20:29)
[2022-02-28 21:04] LABS: Glucose,Whole Blood 86 mg/dL (70-110)
[2022-03-01 06:16] LABS: Glucose,Whole Blood 104 mg/dL (70-110)
[2022-03-01] MEDS: INSULIN ASPART (NovoLOG) 100 UNIT/ML VIAL SQ SCH ×2 (06:21→11:40)
[2022-03-01] MEDS: carvediloL 3.125 MG TAB PO SCH (06:23)
[2022-03-01] MEDS: SEVELAMER 800 MG TAB PO SCH ×2 (06:23→11:43)
[2022-03-01] MEDS: HYDROmorphone 0.5 MG/0.5 ML SYRINGE IVP PRN (06:26)
[2022-03-01] MEDS: ASPIRIN 81 MG PO SCH (08:33)
[2022-03-01] MEDS: AMPICILLIN-SULBACTAM 3 GM in SODIUM CHLORIDE 0.9% 100 ML IVPB SCH (08:33)
[2022-03-01] MEDS: HEPARIN SODIUM,PORCINE/PF 5,000 UNIT/0.5 ML SYRINGE SQ SCH (08:33)
[2022-03-01] MEDS: FAMOTIDINE 20 MG TAB PO SCH (08:33)
[2022-03-01] MEDS: CHLORHEXIDINE GLUCONATE 15 ML CUP MUCOUS MEM SCH (08:36)
--- NOTE | 2022-03-01 10:21 | P.PN ---
Subjective Patient is seen in follow-up for end-stage renal disease. He is maintained on hemodialysis on Monday schedule. Tolerating oral intake. Hemodynamically stable. Overall much improved. Seen on hemodialysis today. Tolerating his treatment well. Objective - Vital Signs Vital signs: Vital Signs Temp 97.8 F 03/01/22 05:00 Pulse 60 03/01/22 05:00 Resp 16 03/01/22 05:00 BP 114/72 03/01/22 05:00 Pulse Ox 99 03/01/22 05:00 FiO2 Intake & Output 02/28/22 03/01/22 03/01/22 18:59 06:59 18:59 Intake Total 100 Balance 100 Weight 67 kg Intake: Intake, IV Titration 100 Amount Ampicillin-Sulbactam 3 gm 100 In Sodium Chloride 0.9% 100 ml @ 200 mls/hr IVPB Q24HR [facility] Rx#:[id number] Other: Voiding Method Diaper Diaper # Bowel Movements 1 - Exam Patient is awake, comfortable, no acute distress Alert oriented 3. Abdomen is soft nontender Examination lower extremities shows no edema CHEMOTHERAPIST exam shows patient is moving all 4 extremities - Labs CBC & Chem 7: 02/25/22 07:35 02/25/22 07:35 Labs: Abnormal Lab Results - Last 24 Hours (Table) 02/28/22 02/28/22 Range/Units 11:01 17:04 POC Glucose (mg/dL) 146 H 186 H (70-110) mg/dL Assessment and Plan Assessment: 1. End-stage renal disease on hemodialysis on a Monday schedule via AV fistula left arm 2. Sepsis associated with tooth extraction. Blood cultures positive for alphahemolytic streptococcus with repeat blood cultures negative. Maintained on antibiotics. Being followed by ID 3. Lactic acidosis 4. CK D mineral bone disorder 5. Hypertension with CK D stage IV 6. Altered mentation 7. Elevated liver enzymes mostly secondary to hypotension. Ultrasound shows possible acute cholecystitis . Status post MRCP which showed mild extrahepatic biliary duct allocation with CBD at 8 mm liver enzymes have been back to normal since 02/18/2022 Plan: Hemodialysis today. Awaiting rehab
[2022-03-01 11:15] LABS: Glucose,Whole Blood 104 mg/dL (70-110)
[2022-03-01] MEDS: amLODIPine 5 MG TAB PO SCH (11:43)
[2022-03-01 12:45] VITALS: PULSE 59
--- NOTE | 2022-03-01 13:19 | P.DS ---
Providers Date of admission: 02/12/22 10:12 Expected date of discharge: 03/01/22 Attending physician: Darlin Arguello DO Consults: 02/12/22 10:12 Consult Physician Urgent Consulting Provider: Angle Yates Consult Reason/Comments: Missed dialysis Do you want consulting provider notified?: Yes 02/13/22 18:25 Consult Physician Routine Consulting Provider: Jeffy Berumen Consult Reason/Comments: elevated procalcitonin Do you want consulting provider notified?: Yes 02/14/22 16:01 Consult Physician Routine Consulting Provider: Jay Angeles Consult Reason/Comments: altered mental status Do you want consulting provider notified?: Yes 02/16/22 12:57 Consult Physician Routine Consulting Provider: Samir Alcaraz Consult Reason/Comments: recent right upper jaw tooth extraction, bacteremic Do you want consulting provider notified?: Yes 02/17/22 12:41 Consult Physician Routine Consulting Provider: Kanu Lara Consult Reason/Comments: TARIK Do you want consulting provider notified?: Yes Primary care physician: Hayden Cervantes Hospital Course: Hospital course: Patient was 61-year-old male came in with complaints of tiredness weakness drowsiness. Patient has been constipated as well. Patient was given Tylenol 3 after he is a dental procedure patient pain is not bad at this time. Patient the blood pressure is extremely low was given IV fluids in ER patient is Monday and Monday hemodialysis schedule a patient doesn't have a short is a doesn't have any pulmonary edema on the chest x-ray because of which are hemanalysis be is being held at this time and nephrology's recording cautious hydration because of his hypotension. Patient's sodium is also low at 134. Patient appears to have toxicity from codeine and decreased excretion because of renal dysfunction. Patient appears bit encephalopathic 02/13/2022 Patient is evaluated today on medical floor. He is confused and drowsy. Nursing reports increased confusion. Blood pressure continues to run low in the high 90s. Remains afebrile. Sinus bradycardia on the heart monitor. He is receiving IV normal saline at 75 mls per hour. Plan per nephrology is to undergo hemodialysis today. Patient does have increased abdominal distention today, has positive bowel sounds there is no focal tenderness noted on exam. AST and ALT are increased. He did have lactic acidosis on admission as well. He does have consistent leukocytosis today 27.4. Blood cultures are currently pending at this time. Creatinine shows worsening renal function. He has not had any urine output per patient he does make some urine. He reports that bowels are moving. Will check a procalcitonin level and if elevated add empiric antibiotics and consult infectious disease. 02/14/2022 Patient evaluated on medical floor. He continues to be drowsy, he is arousable. Speech is slurred. He does have right facial droop today unclear if this is secondary to mild right facial swelling there is some tenderness to touch. No focal weakness noted however he has significant generalized weakness. Procalcitonin level came back yesterday at >100 and he was started on IV cefepime, blood cultures came back positive last night gram positive, streptococcus species. Infectious disease on consult and IV vancomycin has been added. Liver enzymes and bili remain elevated and abdominal ultrasound was done which shows gallbladder with sludge possible acute cholecystitis. Lipase is elevated at 5815. Patient is scheduled for MRCP to evaluated for choledocholelisthiasis. White count today 22.40, hgb 9.4, sodium 136, BUN 51.3, creatinine 5.7 today. Glucose in the 100s. 02/15/2022 Patient evaluated on step down unit. Negative brain CT. Neurology work up in place. He is more awake today alert x 1 to 2. He is undergoing hemodialysis today. Blood cultures showing alpha hemolytic streptococcus. Patient had MRCP today, surgery following and feel elevated enzymes secondary to acute pancreatitis. 02/16/2022 Patient is evaluated today on step down unit. He is more awake and alert, currently alert x 2 to 3. He continues to be drowsy. Continues with right sided facial droop, no focal weakness noted. Patient had MRI completed today showing scattered bilateral punctuate white matter changes compatible with acute ischemic changes. Possibly from septic emboli. Possibly right mastoiditis. He does complain of some pain and numbness to the face adjacent to where the tooth was extracted on his right upper jaw. Dr. Alcaraz has been consulted for further evaluation of this. Blood cultures showing alpha hemolytic streptococcus. Infectious disease following cultures, on IV unasyn. Echocardiogram has been ordered to evaluate for endocarditis. Case discussed with general surgery, MRCP has been completed there is mild extrahepatic duct dilation with the CBD measuring up to 8mm with no definitive filling defect, stricture or obstructing mass lesion noted within the limitations of exam. There is mild gallbladder wall thickening suggestive of gallbladder sludge. Patient has hepatosplenomegaly with iron deposition. Moderate volume ascites. White count is 18.1 today, hemoglobin 9.4, neutrophils 14.8. Sodium 133 today, potassium 2.4. Creatinine 3.76. Bilirubin continues to elevate up to 6.3 he does appear more jaundice today. Liver enzymes are improving overall. Lipase 1394. He remains afebrile, heart rate 54, blood pressure 120/65, 97% on room air. 02/17/2022 Patient is evaluated today resting in bed more awake and alert. Denies pain. Status post paracentesis with 4L of fluid off. Has standing over for biweekly paracentesis. Echocardiogram has been completed showing normal LV systolic function with moderate pulmonary hypertension and also moderate to severe tricuspid regurgitation. Cardiology has been consulted for possible TARIK. General surgery has evaluated the patient today and recommending possible laproscopic cholecystectomy secondary to chronic cholecystitis with sludge pending improvement in his medical condition. IV unasyn can cause biliary stasis this was discussed with ID consultation and antibiotics have been changed to ceftriaxone and repeat labs tomorrow. He is being dialyzed today. Maxillary facial CT is pending at this time. Remains afebrile, heart rate 51, blood pressure 122/60, 95% room air. Labs today showing white count 16.3, hgb 9.0. Sodium 134, potassium 4.0, Although bilirubin is slightly up today at 6.6, AST/ALT and alk phos have improved. CRP 20.5. Lipase 1015. Lipid panel is significantly abnormal showing triglyceride level 317, total cholesterol 209, LDL 133, HDL 63. 02/18/2022 Patient is currently resting in bed. Awake alert but seems to be confused and lethargic. Patient has been afebrile. No complaints of chest pain or worsening shortness of breath. No nausea vomiting abdominal pain and diarrhea. Blood cultures showed all for hemolytic streptococcus. Patient remains on antibiotics in the form of ceftriaxone. Patient was seen by cardiology due to bacteremia and possible TARIK. MRI brain done on 02/16/2022 showed scattered bilateral cerebral punctate white matter changes compatible with acute ischemic changes best visualized on diffuse weighted imaging. Consider septic emboli within the differential. Clinical correlation for right mastoiditis. Patient is otherwise scheduled for hemodialysis TTS. Next hemodialysis is tomorrow. 02/19/2022 Patient's condition remains the same. Awake alert but seems lethargic. No facial droop noted. No complains of nausea vomiting. Patient has been afebrile. Repeat blood cultures have been negative. Patient is being continued on antibiotics the form of ceftriaxone. Discussed with neurosurgery and recommending debridement of right mastoiditis once medically stable. Cardiology is planning for TARIK on Monday if needed. Laboratory data showed WBC 15.1 hemoglobin 9.5 and platelets 252 Sodium 133 potassium 3.9 bicarb is 21 BUN 47 creatinine 5.39, AST 48 DT 8 alk phos 321 and albumin 2.3. Blood sugar is 119. 02/20/2022 Patient is currently lying in bed. She is willing confused. Somewhat weak but denies any complaints of cough or sputum production. Afebrile. No nausea vomiting abdominal pain or diarrhea. Patient was dialyzed yesterday. Patient does have poor appetite. Laboratory pressure WBC 14.0 hemoglobin 9.4 and platelets 300 Sodium 133 potassium 4.3 chloride 99 bicarb is 22 BUN 35 creatinine 4.17 and CRP level is 8.9 02/22/2022 Patient is more awake and oriented today. Complains of exacerbation requesting IV pain medications. Patient has been afebrile. No nausea vomiting abdominal pain or diarrhea. Patient has been afebrile will continue on Unasyn. Hemodialysis as per schedule. Laboratory pressure WBC 12.2 hemoglobin 9.5 platelets 429 Sodium 130 potassium 4.7 chloride 97 bicarb is 20 BUN 16 creatinine 7.37 Phosphorus 9.0 CRP 16.1 Patient underwent TARIK which is negative for vegetations. Repeat blood cultures have been negative. Patient is maintained on IV antibiotics. ID is on board. 02/24/2020 Patient is resting in the bed. Seems to be more awake and oriented. No complaints of chest pain or shortness of breath. No nausea vomiting abdominal pain. Patient complains of right jaw pain slightly improved today compared to yesterday. No headache or dizziness or lightheadedness. No fever no chills. Patient is being current on IV antibiotics Unasyn. Patient did have patient CT concerning for osteomyelitis of the jaw. May need IV antibiotic course via PICC line. No debridement as per OMFS anticipate improvement. Repeat blood cultures have been negative. Hemodialysis as Scheduled Laboratory showed WBC 11.2 hemoglobin 9.6 and platelets 471 Sodium 134 potassium 4.3 chloride 97 bicarb is 28 BUN 14 creatinine 5.17 and creatinine blood sugar is 143 albumin 2.3 February 24 through February 27 patient covered by [facility] 02/28/2022: I assumed care of the patient today. Eating fair. Soft diet. Some pain in the right jaw area improving. Had a bowel movement. Hemodialyzed yesterday. Sitting up in bed. 02/28/2022: Getting hemodialysis today. Oral intake fair. Discussed with ID. 6 weeks of IV Unasyn. Patient has PICC line. Discussed with rn case manager. DC to rehab. Questions answered Patient to follow with Dr. William from general surgery, Dr. Torres from ID, oromaxillofacial surgery for debridement outpatient Discussion and discharge planning more than 35 minutes Past medical history to include: Diabetes, GERD, end-stage kidney disease and hemodialysis for last 2 years, hypertension, reflux, Social history: Patient smoked for 22 years stopped 22 years ago. Smoked upto 2 packs a day. Alcohol occasionally. . Physical examination: VITAL SIGNS: 97.7, 59, 19, 1 40 x 57, 99% room air GENERAL: Laying down comfortable EYES: Pupils equal. Conjunctiva normal. HEENT: External appearance of nose ears normal. Some swelling over the right lateral face NECK: JVD unable to assess; masses not palpable. HEART: First and second heart sounds are normal; significant edema LUNGS: Respiratory rate normal, decreased breath sounds. ABDOMEN: Soft, distended, dullness to percussion the flanks nontender, liver spleen not palpable, no masses palpable. PSYCH: AO 3, mood and affect tired NEUROLOGICAL: Right facial weakness. Some swelling over the right lateral face Investigations: CT facial bones [02/17/2022]: Bony distractor processes of the posterior right maxilla at the location the first second and third molars which are absent. Extends into the right maxillary sinus. Soft tissue areas seen. Suspected osteomyelitis. Peritoneal fluid: No malignant cells 2-D echocardiogram: EF 55%. Moderate pulmonary hypertension. Moderate to severe tricuspid regurgitation Carotid Doppler: Less than 50% stenosis bilateral carotid bifurcation... Head and MRA: No aneurysm. Nonvisualization of the right vertebral artery. Brain MRI: Scattered bilateral cerebral punctate white matter changes compatible with acute ischemic changes. Abdominal ultrasound: Hepatosplenomegaly with some iron deposition. Moderate volume ascites. Mild extrahepatic biliary duct dilatation with CPD 8 mm. No definite filling defect. Assessment and plan -Acute ischemic stroke there are multiple small foci over bilateral hemisphere noted on MRI, concern for emboli and also septic emboli. Status post TARIK showed no vegetations. Aspirin .. -Altered mental status secondary toxic metabolic encephalopathy secondary to recent opiate use, and sepsis, there is also concern for stroke.. 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 With recent surgery to right upper molar being removed IV Unasyn for 6 weeks. Follow up with oral surgery outpatient for right mastoid debridement. -Chronic cholecystitis with sludge. Seen by Dr. William from general surgery. for outpatient laparoscopic cholecystectomy. -Lactic acidosis from sepsis, corrected -Volume overload patient missed hemodialysis secondary to hypotension and dizziness, : Improved -ESRD on hemodialysis. TTS. -Anemia of chronic kidney disease Aranesp -Recurrent ascites with frequent paracentesis s/p paracentesis on 02/16 with 4L of fluid off -Mild troponin elevation secondary to renal disease -Essential hypertension Amlodipine, Coreg, aspirin -Hyperlipidemia Lipitor -Chronic kidney disease mineral bone disease Renvela -hyponatremia -Gastroesophageal reflux disease Pepcid Disposition: Rehab at [facility] Plan - Discharge Summary Discharge Rx Participant: Yes New Discharge Prescriptions: New Aspirin 81 mg PO DAILY tab Atorvastatin [Lipitor] 20 mg PO HS tab amLODIPine [Norvasc] 5 mg PO BID tab carvediloL [Coreg] 3.125 mg PO BID-W/MEALS tab Ampicillin-Sulbactam [Unasyn] 3 gm IVPB Q24HR each Sevelamer [Renvela] 800 mg PO TID-W/MEALS tab Acetaminophen with Codeine [Tylenol w/Codeine #2 Tablet] 1 tab PO Q6H 3 Days #12 tab Continue amLODIPine [Norvasc] 10 mg PO DAILY #30 tab Albuterol Sulfate [Ventolin HFA] 1 - 2 puff INHALATION RT-Q6H PRN PRN Reason: Shortness Of Breath Loratadine 10 mg PO DAILY cloNIDine HCL [Catapres] 0.1 mg PO TID Ibuprofen [Motrin] 400 - 800 mg PO Q4H PRN PRN Reason: Pain Or Fever > 100.5 Discontinued Velphoro 500mg Chewable Tab 1,500 mg PO TID-W/MEALS Velphoro 500mg Chewable Tab 500 mg PO BID PRN PRN Reason: WITH SNACKS carvediloL [Coreg] 25 mg PO BID hydrALAZINE HCL [Apresoline] 100 mg PO TID Acetaminophen-Codeine 300-30mg [Tylenol w/codeine #3] 1 - 2 tab PO Q4-6H PRN PRN Reason: Pain Discharge Medication List amLODIPine [Norvasc] 10 mg PO DAILY #30 tab 09/21/17 [Rx] Albuterol Sulfate [Ventolin HFA] 1 - 2 puff INHALATION RT-Q6H PRN 07/17/20 [History] Loratadine 10 mg PO DAILY 07/17/20 [History] Ibuprofen [Motrin] 400 - 800 mg PO Q4H PRN 11/11/21 [History] cloNIDine HCL [Catapres] 0.1 mg PO TID 11/11/21 [History] Ampicillin-Sulbactam [Unasyn] 3 gm IVPB Q24HR each 02/25/22 [Rx] Aspirin 81 mg PO DAILY tab 02/25/22 [Rx] carvediloL [Coreg] 3.125 mg PO BID-W/MEALS tab 02/25/22 [Rx] Acetaminophen with Codeine [Tylenol w/Codeine #2 Tablet] 1 tab PO Q6H 3 Days #12 tab 03/01/22 [Rx] Atorvastatin [Lipitor] 20 mg PO HS tab 03/01/22 [Rx] Sevelamer [Renvela] 800 mg PO TID-W/MEALS tab 03/01/22 [Rx] amLODIPine [Norvasc] 5 mg PO BID tab 03/01/22 [Rx] Follow up Appointment(s)/Referral(s): Hayden Cervantes MD [Primary Care Provider] - 1-2 days Jeffy Berumen MD [STAFF PHYSICIAN] - 03/15/22 1:15 pm Jerson William MD [STAFF PHYSICIAN] - 03/10/22 2:45 pm Ambulatory/Diagnostic Orders: Basic Metabolic Panel [LAB.AMB] Location: None Selected C Reactive Protein [LAB.AMB] Location: None Selected Complete Blood Count w/diff [LAB.AMB] Location: None Selected Erythrocyte Sedimentation Rate [LAB.AMB] Location: None Selected
[2022-03-01 15:00] VITALS: BP 157/61; RESP 15; TEMP 97.8
== END 2022-03-01 16:03 | DRG 871 ==
LOC: EC 07:00 → 5NMEDONC 10:12 → 3SCARD 02-14 20:44 → 4SSUR 02-26 16:52
PROVIDERS: ADMIT Internal Medicine; ATTEND Internal Medicine
PROC: 5A1D70Z Performance of Urinary Filtration, Intermittent, Less than 6 Hours Per Day (ICD-10-PCS; 2022-02-12)
PROC: 0W9G3ZX Drainage of Peritoneal Cavity, Percutaneous Approach, Diagnostic (ICD-10-PCS; principal; 2022-02-16)
PROC: B24BZZ4 Ultrasonography of Heart with Aorta, Transesophageal (ICD-10-PCS; 2022-02-21)
PROC: 02HV33Z Insertion of Infusion Device into Superior Vena Cava, Percutaneous Approach (ICD-10-PCS; 2022-02-24)
DX: A40.8 Other streptococcal sepsis (principal); G92.8 Other toxic encephalopathy; K85.90 Acute pancreatitis without necrosis or infection, unspecified; K72.00 Acute and subacute hepatic failure without coma; N18.6 End stage renal disease; I63.441 Cerebral infarction due to embolism of right cerebellar artery; H70.001 Acute mastoiditis without complications, right ear; E87.1 Hypo-osmolality and hyponatremia; E87.20 Acidosis, unspecified; I13.2 Hypertensive heart and chronic kidney disease with heart failure and with stage 5 chronic kidney disease, or end stage renal disease; I50.22 Chronic systolic (congestive) heart failure; K80.10 Calculus of gallbladder with chronic cholecystitis without obstruction; L03.211 Cellulitis of face; M86.18 Other acute osteomyelitis, other site; R18.8 Other ascites; I76 Septic arterial embolism; D63.1 Anemia in chronic kidney disease; E11.22 Type 2 diabetes mellitus with diabetic chronic kidney disease; E11.42 Type 2 diabetes mellitus with diabetic polyneuropathy; E11.69 Type 2 diabetes mellitus with other specified complication; Z99.2 Dependence on renal dialysis; R16.2 Hepatomegaly with splenomegaly, not elsewhere classified; Z20.822 Contact with and (suspected) exposure to COVID-19; I07.1 Rheumatic tricuspid insufficiency; G93.0 Cerebral cysts; I27.20 Pulmonary hypertension, unspecified; I95.3 Hypotension of hemodialysis; E83.9 Disorder of mineral metabolism, unspecified; K21.9 Gastro-esophageal reflux disease without esophagitis; E86.1 Hypovolemia; K59.00 Constipation, unspecified; K82.8 Other specified diseases of gallbladder; K04.7 Periapical abscess without sinus; K08.499 Partial loss of teeth due to other specified cause, unspecified class; M27.2 Inflammatory conditions of jaws; R00.1 Bradycardia, unspecified; E78.5 Hyperlipidemia, unspecified; R77.8 Other specified abnormalities of plasma proteins; R29.810 Facial weakness; T40.605A Adverse effect of unspecified narcotics, initial encounter; Z79.2 Long term (current) use of antibiotics; Z79.4 Long term (current) use of insulin; Z79.82 Long term (current) use of aspirin; Z79.899 Other long term (current) drug therapy; Z83.3 Family history of diabetes mellitus; Z87.01 Personal history of pneumonia (recurrent); Z87.820 Personal history of traumatic brain injury; Z87.891 Personal history of nicotine dependence; Z84.1 Family history of disorders of kidney and ureter
CPT/HCPCS: 36415; 36573; 49083; 70450; 70486; 70544; 70551; 71045; 71046; 74018; 74181; 76700; 80048; 80053; 80061; 80143; 80202; 82140; 83036; 83540; 83550; 83605; 83690; 83735; 83880; 84100; 84145; 84484; 85025; 85610; 85652; 86140; 87040; 87070; 87075; 87205; 87636; 88305; 90935; 93005; 93306; 93312; 93320; 93325; 93880; 94760; 96361; 96374; 99285

== ENCOUNTER 2022-05-12 12:46 | Day surgery (SDC) | payer MEDICARE ==
[2022-05-12] MEDS: ALBUMIN HUMAN 25% 50 ML in EMPTY BAG 1 BAG IVPB SCH ×2 (13:03→13:22)
[2022-05-12 13:21] LABS: Mean Platelet Volume 7.4; Platelet Count 439 k/uL (150-450)
[2022-05-12 13:31] LABS: INR 1.1 (<1.2); Prothrombin Time 11.2 sec (9.0-12.0)
[2022-05-12 13:33] VITALS: RESP 16; TEMP 98.2
--- NOTE | 2022-05-12 14:43 | US ---
Ultrasound-guided paracentesis. DATE OF EXAM: 05/12/2022 CLINICAL HISTORY: Ascites The procedure was discussed with the patient. The risks, complications, benefits, and alternatives we re discussed and any questions were answered. Informed consent was obtained. The patient was placed s upine on the ultrasound table and prepped and draped in the usual sterile fashion. All elements of maximal barrier technique were utilized. Under ultrasound guidance, access into the right lower quadrant was obtained, via the paracentesis catheter system and direct ultrasound guidanc e. Approximately 4.4 liters of straw-colored fluid was removed. The patient was stable throughout the pr ocedure and remained stable upon discharge from Department of Radiology. IMPRESSION: Successful paracentesis under ultrasound guidance.
[2022-05-12 14:45] VITALS: BP 151/78; PULSE 66
== END 2022-05-12 14:30 | disposition home or self-care (01) ==
LOC: RADPROMAIN 12:46
PROVIDERS: ATTEND Internal Medicine
DX: R18.8 Other ascites (principal)
CPT/HCPCS: 82565; 82947; 85049; 85610; 36415; 49083; P9047

== ENCOUNTER 2022-05-26 12:36 | Day surgery (SDC) | payer MEDICARE ==
[2022-05-26 13:49] VITALS: BP 154/70; PULSE 82; RESP 16; TEMP 98.2
[2022-05-26 13:55] LABS: Mean Platelet Volume 7.5; Platelet Count 428 k/uL (150-450)
[2022-05-26] MEDS: ALBUMIN HUMAN 25% 50 ML in EMPTY BAG 1 BAG IVPB SCH ×2 (13:58→14:06)
[2022-05-26 14:02] LABS: Prothrombin Time 10.3 sec (9.0-12.0)
--- NOTE | 2022-05-26 14:49 | US ---
Ultrasound-guided paracentesis. DATE OF EXAM: 05/26/2022 CLINICAL HISTORY: Ascites Preliminary imaging demonstrated no sizable fluid collection safe for percutaneous drainage. IMPRESSION: Deferred Paracentesis due to insufficient fluid..
== END 2022-05-26 14:20 | disposition home or self-care (01) ==
LOC: RADPROMAIN 12:36
PROVIDERS: ATTEND Internal Medicine
DX: R18.8 Other ascites (principal)
CPT/HCPCS: 82565; 82947; 85049; 85610; 36415; 76705; P9047

== ENCOUNTER 2022-06-09 12:21 | Day surgery (SDC) | payer MEDICARE ==
[2022-06-09 13:06] LABS: Mean Platelet Volume 8.3; Platelet Count 266 k/uL (150-450)
[2022-06-09 13:25] LABS: Prothrombin Time 10.5 sec (9.0-12.0)
[2022-06-09 13:30] VITALS: BP 184/72; PULSE 59; RESP 16
[2022-06-09] MEDS: ALBUMIN HUMAN 25% 50 ML in EMPTY BAG 1 BAG IVPB SCH (13:57)
--- NOTE | 2022-06-10 07:52 | US ---
Ultrasound-guided paracentesis. DATE OF EXAM: 06/09/2022 CLINICAL HISTORY: Ascites Preliminary imaging demonstrated no sizable fluid collection safe for percutaneous drainage. IMPRESSION: Deferred Paracentesis due to insufficient fluid.
== END 2022-06-09 13:50 | disposition home or self-care (01) ==
LOC: RADPROMAIN 12:21
PROVIDERS: ATTEND Internal Medicine
DX: R18.8 Other ascites (principal); Z53.09 Procedure and treatment not carried out because of other contraindication
CPT/HCPCS: 36415; 76705; 82565; 82947; 85049; 85610

== ENCOUNTER 2022-08-01 12:33 | Day surgery (SDC) | payer MEDICARE ==
[2022-08-01 13:02] VITALS: RESP 18; TEMP 97.9
[2022-08-01 13:11] LABS: Platelet Count 289 k/uL (150-450)
[2022-08-01 13:20] LABS: INR 1.1 (<1.2); Prothrombin Time 11.6 sec (9.0-12.0)
[2022-08-01] MEDS: ALBUMIN HUMAN 25% 50 ML in EMPTY BAG 1 BAG IVPB SCH ×3 (14:13→14:56)
[2022-08-01 14:55] VITALS: BP 181/90; PULSE 70
--- NOTE | 2022-08-01 14:56 | US ---
Ultrasound-guided paracentesis. DATE OF EXAM: 08/01/2022 CLINICAL HISTORY: Ascites The procedure was discussed with the patient. The risks, complications, benefits, and alternatives we re discussed and any questions were answered. Informed consent was obtained. The patient was placed s upine on the ultrasound table and prepped and draped in the usual sterile fashion. All elements of maximal barrier technique were utilized. Under ultrasound guidance, access into the right lower quadrant was obtained, via the paracentesis catheter system and direct ultrasound guidanc e. Approximately 6.4 liters of straw-colored fluid was removed. The patient was stable throughout the pr ocedure and remained stable upon discharge from Department of Radiology. IMPRESSION: Successful paracentesis under ultrasound guidance.
== END 2022-08-01 15:10 | disposition home or self-care (01) ==
LOC: RADPROMAIN 12:33
PROVIDERS: ATTEND Internal Medicine
DX: R18.8 Other ascites (principal)
CPT/HCPCS: 82947; 85049; 85610; 36415; 49083; P9047

== ENCOUNTER 2022-09-20 12:18 | Day surgery (SDC) | payer MEDICARE ==
[2022-09-20 12:52] LABS: Mean Platelet Volume 8.9; Platelet Count 257 k/uL (150-450)
[2022-09-20 13:04] VITALS: TEMP 97.5
[2022-09-20 13:06] LABS: African American GFR (CKD) 13 (>60 ml/min/1.73 sqM); Glucose 180 mg/dL (74-99); Non-African American GFR(CKD) 12 (>60 ml/min/1.73 sqM)
[2022-09-20 13:09] LABS: Prothrombin Time 10.8 sec (9.0-12.0)
[2022-09-20] MEDS: ALBUMIN HUMAN 25% 50 ML in EMPTY BAG 1 BAG IVPB SCH ×3 (13:50→14:23)
[2022-09-20 14:35] VITALS: PULSE 56
[2022-09-20 15:01] VITALS: BP 179/80; RESP 16
--- NOTE | 2022-09-21 08:47 | US ---
EXAMINATION TYPE: US paracentesis abd w/image DATE OF EXAM: 09/20/2022 2:46 PM CLINICAL INDICATION:Male, 62 years old with history of R18.8 OTHER ASCITES; COMPARISON: 08/01/2022 ATTENDING: Dr. Romaine Nicole PROCEDURE: Informed consent was obtained. The risks of the procedure were extensively explained incl uding risk of damage to surrounding bowel with perforation and need for additional procedures. Proced ure was performed in the ultrasound procedure suite. Ultrasound imaging of the abdomen demonstrate as citic fluid. An appropriate access site was localized to the right lower abdomen. Timeout was taken p er protocol. The skin was prepped and draped in the usual sterile fashion and then locally anesthetiz ed with 1% lidocaine. The peritoneal cavity was then accessed via a 5-Tamazight one-step needle/cathete r. Approximately 9000 cc of clear straw-colored fluid was obtained. Postprocedural imaging of the ab domen demonstrate a minimal amount of abdominal fluid. Patient tolerated procedure well without immediate complication. Hemostasis at the procedural site w as obtained with a sterile bandage placed. The patient was monitored in the holding area following th e procedure and was subsequently discharged in stable condition. IMPRESSION: Ultrasound guided paracentesis, with approximately 9000 cc of clear straw-colored fluid drained. No i mmediate complications were evident.
== END 2022-09-20 15:10 | disposition home or self-care (01) ==
LOC: RADPROMAIN 12:18
PROVIDERS: ATTEND Internal Medicine
DX: R18.8 Other ascites (principal)
CPT/HCPCS: 82565; 82947; 85049; 85610; 36415; 49083; P9047

== ENCOUNTER 2022-10-11 11:58 | Day surgery (SDC) | payer MEDICARE ==
[2022-10-11 12:41] LABS: Mean Platelet Volume 9.1; Platelet Count 191 k/uL (150-450)
[2022-10-11 12:47] LABS: INR 1.1 (<1.2); Prothrombin Time 11.4 sec (9.0-12.0)
[2022-10-11 12:48] VITALS: RESP 16; TEMP 98.2
[2022-10-11 12:50] LABS: African American GFR (CKD) 13 (>60 ml/min/1.73 sqM); Glucose 123 mg/dL (74-99); Non-African American GFR(CKD) 11 (>60 ml/min/1.73 sqM)
[2022-10-11] MEDS: ALBUMIN HUMAN 25% 50 ML in EMPTY BAG 1 BAG IVPB SCH ×2 (13:37→13:48)
[2022-10-11 14:38] VITALS: BP 144/84; PULSE 78
--- NOTE | 2022-10-11 15:45 | US ---
Ultrasound-guided paracentesis. DATE OF EXAM: 10/11/2022 CLINICAL HISTORY: Ascites The procedure was discussed with the patient. The risks, complications, benefits, and alternatives we re discussed and any questions were answered. Informed consent was obtained. The patient was placed s upine on the ultrasound table and prepped and draped in the usual sterile fashion. All elements of maximal barrier technique were utilized. Under ultrasound guidance, access into the right lower quadrant was obtained, via the paracentesis catheter system and direct ultrasound guidanc e. Approximately 7.9 liters of straw-colored fluid was removed. The patient was stable throughout the pr ocedure and remained stable upon discharge from Department of Radiology. IMPRESSION: Successful paracentesis under ultrasound guidance.
== END 2022-10-11 14:20 | disposition home or self-care (01) ==
LOC: RADPROMAIN 11:58
PROVIDERS: ATTEND Internal Medicine
DX: R18.8 Other ascites (principal)
CPT/HCPCS: 82565; 82947; 85049; 85610; 36415; 49083; P9047

== ENCOUNTER 2022-11-03 12:53 | Day surgery (SDC) | payer MEDICARE ==
[2022-11-03 13:18] LABS: Mean Platelet Volume 9.9; Platelet Count 203 k/uL (150-450)
[2022-11-03 13:21] VITALS: TEMP 98
[2022-11-03 13:29] LABS: INR 1.1 (<1.2); Prothrombin Time 11.1 sec (9.0-12.0)
[2022-11-03 13:53] LABS: African American GFR (CKD) 13 (>60 ml/min/1.73 sqM); Glucose 176 mg/dL (74-99); Non-African American GFR(CKD) 11 (>60 ml/min/1.73 sqM)
[2022-11-03] MEDS: ALBUMIN HUMAN 25% 50 ML in EMPTY BAG 1 BAG IVPB SCH ×4 (14:28→15:41)
[2022-11-03 15:45] VITALS: BP 174/84; PULSE 67; RESP 15
--- NOTE | 2022-11-03 15:53 | US ---
Ultrasound-guided paracentesis. DATE OF EXAM: 11/03/2022 CLINICAL HISTORY: Ascites The procedure was discussed with the patient. The risks, complications, benefits, and alternatives we re discussed and any questions were answered. Informed consent was obtained. The patient was placed s upine on the ultrasound table and prepped and draped in the usual sterile fashion. All elements of maximal barrier technique were utilized. Under ultrasound guidance, access into the right lower quadrant was obtained, via the paracentesis catheter system and direct ultrasound guidanc e. Approximately 7 liters of straw-colored fluid was removed. The patient was stable throughout the proc edure and remained stable upon discharge from Department of Radiology. IMPRESSION: Successful paracentesis under ultrasound guidance.
== END 2022-11-03 15:45 | disposition home or self-care (01) ==
LOC: RADPROMAIN 12:53
PROVIDERS: ATTEND Internal Medicine
DX: R18.8 Other ascites (principal)
CPT/HCPCS: 82565; 82947; 85049; 85610; 36415; 49083; P9047

== ENCOUNTER 2022-12-15 12:35 | Day surgery (SDC) | payer MEDICARE ==
[2022-12-15 13:57] LABS: Mean Platelet Volume 8.4; Platelet Count 215 k/uL (150-450)
[2022-12-15 13:58] VITALS: TEMP 98.2
[2022-12-15 14:22] LABS: African American GFR (CKD) 6 (>60 ml/min/1.73 sqM); Glucose 137 mg/dL (74-99); Non-African American GFR(CKD) 6 (>60 ml/min/1.73 sqM); Prothrombin Time 10.9 sec (10.0-12.5)
[2022-12-15] MEDS: ALBUMIN HUMAN 25% 50 ML in EMPTY BAG 1 BAG IVPB SCH ×2 (14:24→14:40)
[2022-12-15 15:50] VITALS: BP 149/85; PULSE 50; RESP 16
--- NOTE | 2022-12-16 08:46 | US ---
Ultrasound-guided paracentesis. DATE OF EXAM: 12/15/2022 CLINICAL HISTORY: Ascites The procedure was discussed with the patient. The risks, complications, benefits, and alternatives we re discussed and any questions were answered. Informed consent was obtained. The patient was placed s upine on the ultrasound table and prepped and draped in the usual sterile fashion. All elements of maximal barrier technique were utilized. Under ultrasound guidance, access into the right lower quadrant was obtained, via the paracentesis catheter system and direct ultrasound guidanc e. Approximately 6 liters of straw-colored fluid was removed. The patient was stable throughout the proc edure and remained stable upon discharge from Department of Radiology. IMPRESSION: Successful paracentesis under ultrasound guidance.
== END 2022-12-15 15:45 | disposition home or self-care (01) ==
LOC: RADPROMAIN 12:35
PROVIDERS: ATTEND Internal Medicine
DX: R18.8 Other ascites (principal)
CPT/HCPCS: 82565; 82947; 85049; 85610; 36415; 49083; P9047

== ENCOUNTER 2023-01-05 12:34 | Day surgery (SDC) | payer MEDICARE ==
[2023-01-05 13:02] LABS: Mean Platelet Volume 9.6; Platelet Count 178 k/uL (150-450)
[2023-01-05 13:12] VITALS: TEMP 98.4
[2023-01-05 13:12] LABS: African American GFR (CKD) 11 (>60 ml/min/1.73 sqM); Glucose 166 mg/dL (74-99); Non-African American GFR(CKD) 9 (>60 ml/min/1.73 sqM)
[2023-01-05 13:13] LABS: INR 1.1 (<1.2)
[2023-01-05] MEDS: ALBUMIN HUMAN 25% 50 ML in EMPTY BAG 1 BAG IVPB SCH ×2 (13:25→13:53)
[2023-01-05 14:02] VITALS: RESP 16
[2023-01-05 14:51] VITALS: BP 145/84; PULSE 58
--- NOTE | 2023-01-05 15:35 | US ---
Ultrasound-guided paracentesis. DATE OF EXAM: 01/05/2023 CLINICAL HISTORY: Ascites The procedure was discussed with the patient. The risks, complications, benefits, and alternatives we re discussed and any questions were answered. Informed consent was obtained. The patient was placed s upine on the ultrasound table and prepped and draped in the usual sterile fashion. All elements of maximal barrier technique were utilized. Under ultrasound guidance, access into the right lower quadrant was obtained, via the paracentesis catheter system and direct ultrasound guidanc e. Approximately 6.6 liters of straw-colored fluid was removed. The patient was stable throughout the pr ocedure and remained stable upon discharge from Department of Radiology. IMPRESSION: Successful paracentesis under ultrasound guidance.
== END 2023-01-05 14:39 | disposition home or self-care (01) ==
LOC: RADPROMAIN 12:34
PROVIDERS: ATTEND Internal Medicine
DX: R18.8 Other ascites (principal)
CPT/HCPCS: 82565; 82947; 85049; 85610; 36415; 49083; P9047

== ENCOUNTER 2023-01-26 12:18 | Day surgery (SDC) | payer MEDICARE ==
[2023-01-26 13:07] LABS: Platelet Count 232 k/uL (150-450)
[2023-01-26 13:19] LABS: African American GFR (CKD) 7 (>60 ml/min/1.73 sqM); Glucose 150 mg/dL (74-99); Non-African American GFR(CKD) 6 (>60 ml/min/1.73 sqM)
[2023-01-26 13:20] LABS: Prothrombin Time 11.2 sec (10.0-12.5)
[2023-01-26 13:25] VITALS: TEMP 97.3
[2023-01-26] MEDS: ALBUMIN HUMAN 25% 50 ML in EMPTY BAG 1 BAG IVPB SCH ×3 (13:40→14:04)
[2023-01-26 14:34] VITALS: RESP 18
[2023-01-26 15:21] VITALS: BP 146/62; PULSE 55
--- NOTE | 2023-01-27 09:23 | US ---
Ultrasound-guided paracentesis. DATE OF EXAM: 01/26/2023 CLINICAL HISTORY: Ascites The procedure was discussed with the patient. The risks, complications, benefits, and alternatives we re discussed and any questions were answered. Informed consent was obtained. The patient was placed s upine on the ultrasound table and prepped and draped in the usual sterile fashion. All elements of maximal barrier technique were utilized. Under ultrasound guidance, access into the right lower quadrant was obtained, via the paracentesis catheter system and direct ultrasound guidanc e. Approximately 6.5 liters of straw-colored fluid was removed. The patient was stable throughout the pr ocedure and remained stable upon discharge from Department of Radiology. IMPRESSION: Successful paracentesis under ultrasound guidance.
== END 2023-01-26 15:00 | disposition home or self-care (01) ==
LOC: RADPROMAIN 12:18
PROVIDERS: ATTEND Internal Medicine
DX: R18.8 Other ascites (principal)
CPT/HCPCS: 82947; 82565; 85049; 85610; 36415; 49083; P9047

== ENCOUNTER 2023-02-16 12:50 | Day surgery (SDC) | payer MEDICARE ==
[2023-02-16 13:15] LABS: Mean Platelet Volume 9.7; Platelet Count 182 k/uL (150-450)
[2023-02-16 13:21] LABS: Prothrombin Time 11.3 sec (10.0-12.5)
[2023-02-16 13:27] VITALS: RESP 16; TEMP 98.2
[2023-02-16 13:29] LABS: African American GFR (CKD) 9 (>60 ml/min/1.73 sqM); Glucose 178 mg/dL (74-99); Non-African American GFR(CKD) 8 (>60 ml/min/1.73 sqM)
[2023-02-16] MEDS: ALBUMIN HUMAN 25% 50 ML in EMPTY BAG 1 BAG IVPB SCH ×2 (14:00→14:01)
--- NOTE | 2023-02-16 14:29 | US ---
Ultrasound-guided paracentesis. DATE OF EXAM: 02/16/2023 CLINICAL HISTORY: Ascites The procedure was discussed with the patient. The risks, complications, benefits, and alternatives we re discussed and any questions were answered. Informed consent was obtained. The patient was placed s upine on the ultrasound table and prepped and draped in the usual sterile fashion. All elements of maximal barrier technique were utilized. Under ultrasound guidance, access into the right lower quadrant was obtained, via the paracentesis catheter system and direct ultrasound guidanc e. Approximately 3.3 liters of straw-colored fluid was removed. The patient was stable throughout the pr ocedure and remained stable upon discharge from Department of Radiology. IMPRESSION: Successful paracentesis under ultrasound guidance.
[2023-02-16 14:42] VITALS: BP 161/69; PULSE 68
== END 2023-02-16 14:32 | disposition home or self-care (01) ==
LOC: RADPROMAIN 12:50
PROVIDERS: ATTEND Internal Medicine
DX: R18.8 Other ascites (principal)
CPT/HCPCS: 82565; 82947; 85049; 85610; 36415; 49083; P9047

== ENCOUNTER 2023-03-09 12:16 | Day surgery (SDC) | payer MEDICARE ==
[2023-03-09 13:05] LABS: Mean Platelet Volume 8.5; Platelet Count 205 k/uL (150-450)
[2023-03-09 13:14] LABS: Prothrombin Time 10.8 sec (10.0-12.5)
[2023-03-09 13:18] LABS: African American GFR (CKD) 8 (>60 ml/min/1.73 sqM); Glucose 127 mg/dL (74-99); Non-African American GFR(CKD) 7 (>60 ml/min/1.73 sqM)
[2023-03-09 13:27] VITALS: RESP 16; TEMP 98.2
[2023-03-09] MEDS: ALBUMIN HUMAN 25% 50 ML in EMPTY BAG 1 BAG IVPB SCH ×4 (13:35→15:09)
[2023-03-09 14:51] VITALS: BP 186/77; PULSE 61
--- NOTE | 2023-03-09 19:58 | US ---
EXAMINATION TYPE: US paracentesis abd w/image DATE OF EXAM: 03/09/2023 CLINICAL HISTORY: 62-year-old male R18.8, other ascites The procedure was discussed with the patient. The risks, complications, benefits, and alternatives we re discussed and any questions were answered. Informed consent was obtained. The patient was placed s upine on the ultrasound table and prepped and draped in the usual sterile fashion. All elements of maximal barrier technique were utilized. Ultrasound was utilized to determine the precise skin entry site along the right lower quadrant/right flank. A 5 [place] one-step catheter and trocar technique was utilized to access the ascites collection under direct ultrasound guidance. Approximately 3.8 liters of straw-colored fluid was removed. Catheter was removed, hemostasis obtained, and a dressing placed. The patient was stable throughout the procedure and remained stable upon discharge from Department of Radiology. IMPRESSION: Successful therapeutic paracentesis under ultrasound guidance. 3.8 L of fluid removed.
== END 2023-03-09 14:30 | disposition home or self-care (01) ==
LOC: RADPROMAIN 12:16
PROVIDERS: ATTEND Internal Medicine
DX: R18.8 Other ascites (principal)
CPT/HCPCS: 82565; 82947; 85049; 85610; 36415; 49083; P9047

== ENCOUNTER 2023-03-30 12:10 | Day surgery (SDC) | payer MEDICARE, BC ==
[2023-03-30 12:45] LABS: Platelet Count 186 k/uL (150-450)
[2023-03-30 12:54] LABS: African American GFR (CKD) 7 (>60 ml/min/1.73 sqM); Glucose 109 mg/dL (74-99); Non-African American GFR(CKD) 6 (>60 ml/min/1.73 sqM)
[2023-03-30 12:57] LABS: INR 1.1 (<1.2); Prothrombin Time 11.6 sec (10.0-12.5)
[2023-03-30 13:01] VITALS: RESP 16; TEMP 98.2
[2023-03-30] MEDS: ALBUMIN HUMAN 25% 50 ML in EMPTY BAG 1 BAG IVPB SCH ×2 (14:03→14:23)
[2023-03-30 15:17] VITALS: BP 198/82; PULSE 58
--- NOTE | 2023-03-31 13:17 | US ---
EXAMINATION TYPE: US paracentesis abd w/image DATE OF EXAM: 03/30/2023 2:17 PM CLINICAL INDICATION:Male, 62 years old with history of R18.8 OTHER ASCITES; COMPARISON: 03/09/2023 ATTENDING: Dr. Romaine Nicole PROCEDURE: Informed consent was obtained. The risks of the procedure were extensively explained incl uding risk of damage to surrounding bowel with perforation and need for additional procedures. Proced ure was performed in the ultrasound procedure suite. Ultrasound imaging of the abdomen demonstrate as citic fluid. An appropriate access site was localized to the right lower abdomen. Timeout was taken p er protocol. The skin was prepped and draped in the usual sterile fashion and then locally anesthetiz ed with 1% lidocaine. The peritoneal cavity was then accessed via a 5-Sinhala one-step needle/cathete r. Approximately 6200 cc fluid was obtained. Postprocedural imaging of the abdomen demonstrate a m inimal amount of abdominal fluid. Patient tolerated procedure well without immediate complication. Hemostasis at the procedural site w as obtained with a sterile bandage placed. The patient was monitored in the holding area following th e procedure and was subsequently discharged in stable condition. IMPRESSION: Ultrasound guided paracentesis, with approximately 6200 cc fluid drained. No immediate complications were evident.
== END 2023-03-30 14:55 | disposition home or self-care (01) ==
LOC: RADPROMAIN 12:10
PROVIDERS: ATTEND Internal Medicine
DX: R18.8 Other ascites (principal)
CPT/HCPCS: 82565; 82947; 85049; 85610; 36415; 49083; P9047

== ENCOUNTER 2023-04-18 09:57 | Observation (INO) | payer MEDICARE ==
--- NOTE | 2023-04-18 10:56 | ED ---
Extremity Problem HPI - General Chief complaint: Extremity Problem,Nontraumatic Stated complaint: L arm swelling Time Seen by Provider: 04/18/23 10:29 Source: patient, RN notes reviewed Mode of arrival: ambulatory Limitations: no limitations - History of Present Illness Initial comments: This is a 62-year-old male who presents to the emergency department for left arm pain and swelling. Patient receives hemodialysis Monday, , and Monday. He had a fistula placed in the left arm 4 weeks ago in [place], [place]. This was done due to his prior fistula collapsing. Dr. Morrell performed the procedure. States that he does not want to go back to her again. Over the last week he has had increasing pain and swelling to the left arm. He last had dialy sis 3 days ago and they are using a temporary port in his chest. They did not do his dialysis today due to the swelling. States that they were concerned about infection. He does report increasing shortness of breath as well as swelling in the bilateral lower extremities. Denies a history of congestive heart failure, states that this is all from the renal failure. Also reports increasing abdomi nal pain/swelling. Patient gets a paracentesis every 3 weeks and is scheduled to have one in 2 days. MD Complaint: extremity pain - Related Data Home Medications Medication Instructions Recorded Confirmed Loratadine 10 mg PO DAILY 07/17/20 04/18/23 carvediloL [Coreg] 25 mg PO BID 04/14/22 04/18/23 hydrALAZINE HCL 75 mg PO TID 04/14/22 04/18/23 Pregabalin [Lyrica] 75 mg PO DAILY 01/26/23 04/18/23 Cinacalcet [Sensipar] 30 mg PO TUTHSA 04/18/23 04/18/23 Ergocalciferol (Vitamin D2) 1,250 mcg PO 04/18/23 04/18/23 [Drisdol (50,000 Iu)] Folic Acid/Vit B Complex and C 0.8 mg PO TUTHSA 04/18/23 04/18/23 [Janet-Carroll Tablet] Sucroferric Oxyhydroxide [Velphoro] 1,500 mg PO TID-W/MEALS 04/18/23 04/18/23 Sucroferric Oxyhydroxide [Velphoro] 500 mg PO DAILY PRN 04/18/23 04/18/23 Torsemide [Demadex] 40 mg PO DAILY 04/18/23 04/18/23 calcitrioL [Rocaltrol] 0.25 mcg PO TUTHSA 04/18/23 04/18/23 calcitrioL [Rocaltrol] 0.5 mcg PO TUTHSA 04/18/23 04/18/23 Previous Rx's Medication Instructions Recorded Acetaminophen Tab [Tylenol] 650 mg PO Q6HR PRN tab 04/20/23 Allergies Allergy/AdvReac Type Severity Reaction Status Date / Time diphenhydramine Allergy Hallucinati Verified 04/18/23 10:58 [From Benadryl] ons gabapentin [From Neurontin] Allergy Unknown Verified 04/18/23 10:58 Review of Systems ROS Statement: Those systems with pertinent positive or pertinent negative responses have been documented in the HPI. ROS Other: All systems not noted in ROS Statement are negative. Past Medical History Past Medical History: Diabetes Mellitus, Dialysis, GERD/Reflux, Hyperlipidemia, Hypertension, Pneumonia, Renal Disease Additional Past Medical History / Comment(s): End stage renal disease currently on hemodialysis, diabetes mellitus, hypertension, acid reflux and recent hospitalization for right lung pneumonia and parapneumonic effusion. Feb 2022 Admitted to [facility] [place] for bleed ulcer-received 10 units of blood approx per pt. Left arm dialysis shunt occluded per pt History of Any Multi-Drug Resistant Organisms: None Reported Past Surgical History: Hernia Repair Additional Past Surgical History / Comment(s): umb hernia repair/mesh, rt upper chest dialysis cath, multiple large volume paracentesis procedures, upper GI laser for bleeding ulcer Feb 2022 Past Anesthesia/Blood Transfusion Reactions: No Reported Reaction Additional Past Anesthesia/Blood Transfusion Reaction / Comment(s): clausterphobia, multiple blood trasfusion - no reaction Feb 2022 Past Psychological History: No Psychological Hx Reported Smoking Status: Former smoker Past Alcohol Use History: None Reported Past Drug Use History: None Reported - Past Family History Mother Family Medical History: No Reported History Additional Family Medical History / Comment(s): alive healthy age 82 Father Family Medical History: Diabetes Mellitus, Liver Disease, Renal Disease Additional Family Medical History / Comment(s): kidney/liver failure General Exam Limitations: no limitations General appearance: alert, in no apparent distress Head exam: Present: atraumatic, normocephalic, normal inspection Respiratory exam: Present: normal lung sounds bilaterally. Absent: respiratory distress, wheezes, rales, rhonchi, stridor Cardiovascular Exam: Present: regular rate, normal rhythm, normal heart sounds. Absent: systolic murmur, diastolic murmur, rubs, gallop, clicks GI/Abdominal exam: Present: distended Extremities exam: Present: other (Pitting edema to the bilateral LEs. Swelling to the left upper extremity. No palpable thrill over dialysis fistula.) Neurological exam: Present: alert, oriented X3, CN II-XII intact Psychiatric exam: Present: normal affect, normal mood Course Vital Signs 04/18/23 04/18/23 04/18/23 10:00 12:18 13:00 Temperature 98.8 F Pulse Rate 63 63 Respiratory 20 18 Rate Blood Pressure 156/52 161/96 161/96 O2 Sat by Pulse 98 97 Oximetry 04/18/23 04/18/23 04/18/23 14:00 15:00 15:25 Temperature Pulse Rate 61 61 60 Respiratory 15 12 18 Rate Blood Pressure 156/85 149/82 145/81 O2 Sat by Pulse 99 Oximetry 04/18/23 04/18/23 04/18/23 16:00 19:11 22:22 Temperature Pulse Rate 63 67 69 Respiratory 16 18 18 Rate Blood Pressure 145/81 132/96 172/88 O2 Sat by Pulse 98 98 Oximetry 04/19/23 04/19/23 04/19/23 02:00 05:54 07:34 Temperature Pulse Rate 66 66 53 L Respiratory 20 20 16 Rate Blood Pressure 141/70 142/74 157/79 O2 Sat by Pulse 98 98 96 Oximetry 04/19/23 04/19/23 10:00 22:30 Temperature Pulse Rate 56 L 64 Respiratory 16 18 Rate Blood Pressure 135/86 153/89 O2 Sat by Pulse 95 97 Oximetry Medical Decision Making - Medical Decision Making This is a 62 year old male who presents to the emergency department for left arm pain and swelling. Was pt. sent in by a medical professional or institution? @ -Dialysis Did you speak to anyone other than the patient for history? @ -No Did you review nursing and triage notes? @ -Yes, and I agree, it is accurate with regards to the patient's symptoms. Were old charts reviewed? @ -No Differential Diagnosis? @ -Differential Arm Pain/Swelling: Cellulitis, DVT, Aneursym, this is not meant to be an all-inclusive list. EKG interpreted by me (3pts min.)? @ -EKG interpreted by me demonstrating the following: Sinus rhythm. Ventricular rate 61 bpm, MI interval 197 ms, QRS duration 95 ms, QTC 448 ms. X-rays interpreted by me (1pt min.)? @ -Chest x-ray obtained, my interpretation identifies no localized consolidations or infiltrates. CT interpreted by me (1pt min.)? @ -Not obtained U/S interpreted by me (1pt. min.)? @ -Duplex US of the left upper extremity obtained. My interpretation identifies clots in the fistula. What testing was considered but not performed? (CT, X-rays, U/S, labs)? Why? @ -None What meds were considered but not given? Why? @ -None Did you discuss the management of the patient with other professionals? @ -Yes, vascular surgery, who requested that the patient follow up with his vascular surgeon in [place], [place]. Dr. Maddox accepts the patient for admission to medicine for dialysis and possible paracentesis. Did you reconcile home meds? @ -Yes Was smoking cessation discussed for >3mins.? @ -No Was critical care preformed (if so, how long)? @ -No Were there social determinants of health that impacted care today? How? (Homelessness, low income, unemployed, alcoholism, drug addiction, transportation, low edu. Level, literacy, decrease access to med. care, long-term, rehab)? @ -No Was there de-escalation of care discussed even if they declined? (Discuss DNR or withdrawal of care, Hospice)? @ -No What co-morbidities impacted this encounter? (DM, HTN, Smoking, COPD, CAD, Cancer, CVA, Hep., AIDS, mental health diagnosis, sleep apnea, morbid obesity)? @ -DM, HLD, HTN, ESRD on dialysis Was patient admitted / discharged? @ -Admitted. Lab work obtained revealing hyperkalemia with a potassium of 5.9 and creatinine of 9.13, consistent with the patient's history of renal failure. BNP elevated at 72,100, which is similar when compared with prior values. Chest x-ray demonstrates mild pulmonary edema. Duplex ultrasound of the left upper extremity obtained demonstrating multiple clots from the elbow to the upper arm and shoulder in the area of the fistula. Vascular surgery evaluated the patient, and advised he follow up with his vascular surgeon who did the fistula to begin with. They will sign off on the case at this point. We'll admit patient for purposes of receiving dialysis and possible paracentesis on an inpatient basis. Lokelma administered for the hyperkalemia. Consult placed for nephrology. Undiagnosed new problem with uncertain prognosis? @ -None Drug Therapy requiring intensive monitoring for toxicity (Heparin, Nitro, Insulin, Cardizem)? @ -None Were any procedures done? @ -None Diagnosis/symptom? @ -Thrombosis of AV fistula, hyperkalemia Acute, or Chronic, or Acute on Chronic? @ -Acute Uncomplicated (without systemic symptoms) or Complicated (systemic symptoms)? @ -Complicated Side effects of treatment? @ -None Exacerbation, Progression, or Severe Exacerbation] @ -Not applicable Poses a threat to life or bodily function? @ -Yes This case was discussed in detail with the attending ED physician, Dr. Villagomez. Presentation, findings, and treatment plan discussed in detail as well. - Lab Data Result diagrams: 04/18/23 10:45 04/20/23 07:00 Lab Results 04/18/23 04/18/23 04/18/23 Range/Units 10:45 10:45 10:45 WBC 4.9 (3.8-10.6) k/uL RBC 3.29 L (4.30-5.90) m/uL Hgb 10.8 L (13.0-17.5) gm/dL Hct 31.8 L (39.0-53.0) % MCV 96.8 (80.0-100.0) fL MCH 32.9 (25.0-35.0) pg MCHC 34.0 (31.0-37.0) g/dL RDW 15.0 (11.5-15.5) % Plt Count 182 (150-450) k/uL MPV 9.2 Neutrophils % 69 % Lymphocytes % 15 % Monocytes % 8 % Eosinophils % 4 % Basophils % 1 % Neutrophils # 3.4 (1.3-7.7) k/uL Lymphocytes # 0.7 L (1.0-4.8) k/uL Monocytes # 0.4 (0-1.0) k/uL Eosinophils # 0.2 (0-0.7) k/uL Basophils # 0.1 (0-0.2) k/uL PT 10.8 (10.0-12.5) sec INR 1.0 (<1.2) APTT 28.0 (22.0-30.0) sec Sodium 142 (137-145) mmol/L Potassium 5.9 H (3.5-5.1) mmol/L Chloride 106 (98-107) mmol/L Carbon Dioxide 24 (22-30) mmol/L Anion Gap 12 mmol/L BUN 66 H (9-20) mg/dL Creatinine 9.13 H* (0.66-1.25) mg/dL Est GFR (CKD-EPI)AfAm 6 (>60 ml/min/1.73 sqM) Est GFR (CKD-EPI)NonAf 5 (>60 ml/min/1.73 sqM) Glucose 143 H (74-99) mg/dL Plasma Lactic Acid Dragan (0.7-2.0) mmol/L Calcium 8.9 (8.4-10.2) mg/dL Total Bilirubin 0.7 (0.2-1.3) mg/dL AST 46 (17-59) U/L ALT 34 (4-49) U/L Alkaline Phosphatase 197 H (38-126) U/L Troponin I (0.000-0.034) ng/mL C-Reactive Protein 6.4 H (<1.0) mg/dL NT-Pro-B Natriuret Pep 18935 pg/mL Total Protein 6.7 (6.3-8.2) g/dL Albumin 4.0 (3.5-5.0) g/dL 04/18/23 04/18/23 Range/Units 10:45 10:45 WBC (3.8-10.6) k/uL RBC (4.30-5.90) m/uL Hgb (13.0-17.5) gm/dL Hct (39.0-53.0) % MCV (80.0-100.0) fL MCH (25.0-35.0) pg MCHC (31.0-37.0) g/dL RDW (11.5-15.5) % Plt Count (150-450) k/uL MPV Neutrophils % % Lymphocytes % % Monocytes % % Eosinophils % % Basophils % % Neutrophils # (1.3-7.7) k/uL Lymphocytes # (1.0-4.8) k/uL Monocytes # (0-1.0) k/uL Eosinophils # (0-0.7) k/uL Basophils # (0-0.2) k/uL PT (10.0-12.5) sec INR (<1.2) APTT (22.0-30.0) sec Sodium (137-145) mmol/L Potassium (3.5-5.1) mmol/L Chloride (98-107) mmol/L Carbon Dioxide (22-30) mmol/L Anion Gap mmol/L BUN (9-20) mg/dL Creatinine (0.66-1.25) mg/dL Est GFR (CKD-EPI)AfAm (>60 ml/min/1.73 sqM) Est GFR (CKD-EPI)NonAf (>60 ml/min/1.73 sqM) Glucose (74-99) mg/dL Plasma Lactic Acid Dragan 1.2 (0.7-2.0) mmol/L Calcium (8.4-10.2) mg/dL Total Bilirubin (0.2-1.3) mg/dL AST (17-59) U/L ALT (4-49) U/L Alkaline Phosphatase (38-126) U/L Troponin I 0.019 (0.000-0.034) ng/mL C-Reactive Protein (<1.0) mg/dL NT-Pro-B Natriuret Pep pg/mL Total Protein (6.3-8.2) g/dL Albumin (3.5-5.0) g/dL - Radiology Data Radiology results: report reviewed, image reviewed Disposition Clinical Impression: Hyperkalemia, Thrombosis of arteriovenous dialysis fistula, Hemodialysis patient Disposition: ADMITTED IP TO THIS [facility] Time of Disposition: 13:58
[2023-04-18 11:08] LABS: Basophils # (A) 0.1 k/uL (0-0.2); Basophils % (A) 1 %; Eosinophils # (A) 0.2 k/uL (0-0.7); Eosinophils % (A) 4 %; HCT 31.8 % (39.0-53.0); HGB 10.8 gm/dL (13.0-17.5); Lymphocytes # (A) 0.7 k/uL (1.0-4.8); Lymphocytes % (A) 15 %; MCH 32.9 pg (25.0-35.0); MCV 96.8 fL (80.0-100.0); Mean Platelet Volume 9.2; Monocytes # (A) 0.4 k/uL (0-1.0); Monocytes % (A) 8 %; Neutrophils # (A) 3.4 k/uL (1.3-7.7); Neutrophils % (A) 69 %; Platelet Count 182 k/uL (150-450); RBC 3.29 m/uL (4.30-5.90); WBC 4.9 k/uL (3.8-10.6)
--- NOTE | 2023-04-18 11:17 | XR ---
EXAMINATION TYPE: XR chest 2V DATE OF EXAM: 04/18/2023 11:05 AM CLINICAL INDICATION:Male, 62 years old with history of JAYE; PHH COMPARISON: Chest radiographs from 02/14/2022 TECHNIQUE: XR chest 2V Frontal and lateral views of the chest. FINDINGS: Lungs/Pleura: There is no evidence of pleural effusion, focal consolidation, or pneumothorax. Pulmonary vascularity: Pulmonary vascular congestion. Heart/mediastinum: Cardiomediastinal silhouette is unremarkable. Musculoskeletal: No acute osseous pathology. Right central venous catheter with tip at the superior cavoatrial junction. IMPRESSION: Mild pulmonary edema with right central venous catheter in appropriate position.
[2023-04-18 11:21] LABS: ALT 34 U/L (4-49); AST 46 U/L (17-59); African American GFR (CKD) 6 (>60 ml/min/1.73 sqM); Alkaline Phosphatase 197 U/L (38-126); Anion Gap 12 mmol/L; Blood Urea Nitrogen 66 mg/dL (9-20); C Reactive Protein 6.4 mg/dL (<1.0); Calcium 8.9 mg/dL (8.4-10.2); Carbon Dioxide 24 mmol/L (22-30); Chloride 106 mmol/L (98-107); Glucose 143 mg/dL (74-99); Non-African American GFR(CKD) 5 (>60 ml/min/1.73 sqM); Potassium 5.9 mmol/L (3.5-5.1); Sodium 142 mmol/L (137-145); Total Bilirubin 0.7 mg/dL (0.2-1.3); Total Protein 6.7 g/dL (6.3-8.2)
[2023-04-18 12:13] LABS: NT-Pro-B-Type Natriuretic Pept 72100 pg/mL
[2023-04-18 12:14] LABS: Prothrombin Time 10.8 sec (10.0-12.5)
--- NOTE | 2023-04-18 12:39 | US ---
EXAMINATION TYPE: US venous doppler duplex UE LT DATE OF EXAM: 04/18/2023 COMPARISON: NONE CLINICAL INDICATION: Male, 62 years old with history of Left arm pain and swelling; left arm swelling has fistula SIDE PERFORMED: left Grayscale, color doppler, spectral doppler imaging performed of the deep veins of the left upper extr emity. Left Arm: Clot visualized from elbow to upper arm and shoulder area of fistula. IMPRESSION: Clot visualized from elbow to upper arm and shoulder area of fistula.
[2023-04-18] MEDS ORDERED: MORPHINE SULFATE 4 MG/ML SYRINGE IV PRN (14:14)
[2023-04-18] MEDS ORDERED: ACETAMINOPHEN TAB 325 MG TAB PO PRN (14:14)
[2023-04-18] MEDS ORDERED: ONDANSETRON 4 MG/2 ML VIAL IVP PRN (14:14)
[2023-04-18] MEDS ORDERED: NALOXONE 0.4 MG/ML 1 ML VIAL IV PRN (14:14)
[2023-04-18] MEDS ORDERED: SEVELAMER 800 MG TAB PO PRN (14:20)
--- NOTE | 2023-04-18 14:38 | P.GSCN ---
History of Present Illness Consult date: 04/18/23 Reason for Consult: Thrombosed left upper extremity graft Requesting physician: Nelly Roger History of present illness: This is a pleasant 62-year-old male who presented to the emergency department directed by his outpatient dialysis nurse. He has a history of end-stage renal disease on hemodialysis for at least the past 5 years. He had a left upper extremity graft done with Dr. Morrell from [place] of vascular on his [place] about 4-6 weeks ago. Since that time the graft has not been accessed however he does get dialysis Monday through his right IJ tunneled catheter. He states that he started having swelling in that left upper extremity for a while now but worse over the past few days. He has bilateral lower extremity swelling as well and history of ascites which she states he is scheduled to undergo paracentesis later this week. He has full range of motion of that left upper extremity. There is no palpable thrill. Denies any shortness of breath, chest pain, abdominal pain, nausea or vomiting. Left upper extremity venous duplex reports clot in area of fistula. Review of Systems A 14 point review systems was completed all pertinent positives and negatives as stated in the HPI. Past Medical History Past Medical History: Diabetes Mellitus, Dialysis, GERD/Reflux, Hyperlipidemia, Hypertension, Pneumonia, Renal Disease Additional Past Medical History / Comment(s): End stage renal disease currently on hemodialysis, diabetes mellitus, hypertension, acid reflux and recent hospitalization for right lung pneumonia and parapneumonic effusion. Feb 2022 Admitted to [facility] [place]-received 10 units of blood approx per pt. Left arm dialysis shunt occluded per pt History of Any Multi-Drug Resistant Organisms: None Reported Past Surgical History: Hernia Repair Additional Past Surgical History / Comment(s): umb hernia repair/mesh, rt upper chest dialysis cath, multiple large volume paracentesis procedures, upper GI laser for bleeding ulcer Feb 2022 Past Anesthesia/Blood Transfusion Reactions: No Reported Reaction Additional Past Anesthesia/Blood Transfusion Reaction / Comm: clausterphobia, multiple blood trasfusion - no reaction Feb 2022 Past Psychological History: No Psychological Hx Reported Smoking Status: Former smoker Past Alcohol Use History: None Reported Past Drug Use History: None Reported - Past Family History Mother Family Medical History: No Reported History Additional Family Medical History / Comment(s): alive healthy age 82 Father Family Medical History: Diabetes Mellitus, Liver Disease, Renal Disease Additional Family Medical History / Comment(s): kidney/liver failure Medications and Allergies Home Medications Medication Instructions Recorded Confirmed Type Loratadine 10 mg PO DAILY 07/17/20 04/18/23 History carvediloL [Coreg] 25 mg PO BID 04/14/22 04/18/23 History hydrALAZINE HCL 75 mg PO TID 04/14/22 04/18/23 History Pregabalin [Lyrica] 75 mg PO DAILY 01/26/23 04/18/23 History Cinacalcet [Sensipar] 30 mg PO TUTHSA 04/18/23 04/18/23 History Ergocalciferol (Vitamin D2) 1,250 mcg PO TH 04/18/23 04/18/23 History [Drisdol (50,000 Iu)] Folic Acid/Vit B Complex and C 0.8 mg PO TUTA 04/18/23 04/18/23 History [Janet-Carroll Tablet] Sucroferric Oxyhydroxide [Velphoro] 1,500 mg PO TID-W/MEALS 04/18/23 04/18/23 History Sucroferric Oxyhydroxide [Velphoro] 500 mg PO DAILY PRN 04/18/23 04/18/23 History Torsemide [Demadex] 40 mg PO DAILY 04/18/23 04/18/23 History calcitrioL [Rocaltrol] 0.25 mcg PO TUTHSA 04/18/23 04/18/23 History calcitrioL [Rocaltrol] 0.5 mcg PO TUTA 04/18/23 04/18/23 History Allergies Allergy/AdvReac Type Severity Reaction Status Date / Time diphenhydramine Allergy Hallucinati Verified 04/18/23 10:58 [From Benadryl] ons gabapentin [From Neurontin] Allergy Unknown Verified 04/18/23 10:58 Surgical - Exam Vital Signs Temp Pulse Resp BP Pulse Ox 98.8 F 63 20 156/52 98 04/18/23 10:00 04/18/23 10:00 04/18/23 10:00 04/18/23 10:00 04/18/23 10:00 General appearance: The patient is alert, oriented, appears in no acute distress. HET: Head is normocephalic and atraumatic. Pupils are equal and reactive. Neck: Supple. Heart: Regular. Lungs: Equal expansion, normal respiratory effort. Abdomen: Soft, nontender, ascites. Extremities: Normal skin color and turgor. Bilateral lower extremity pitting edema. Left upper extremity with swelling from upper arm down to hand. Graft with nonpalpable thrill no audible bruit. Neurological: No focal deficits. Results - Labs 04/18/23 10:45 04/18/23 10:45 Abnormal Lab Results - Last 24 Hours (Table) 04/18/23 04/18/23 Range/Units 10:45 10:45 RBC 3.29 L (4.30-5.90) m/uL Hgb 10.8 L (13.0-17.5) gm/dL Hct 31.8 L (39.0-53.0) % Lymphocytes # 0.7 L (1.0-4.8) k/uL Potassium 5.9 H (3.5-5.1) mmol/L BUN 66 H (9-20) mg/dL Creatinine 9.13 H* (0.66-1.25) mg/dL Glucose 143 H (74-99) mg/dL Alkaline Phosphatase 197 H (38-126) U/L C-Reactive Protein 6.4 H (<1.0) mg/dL Diabetes panel 04/18/23 Range/Units 10:45 Sodium 142 (137-145) mmol/L Potassium 5.9 H (3.5-5.1) mmol/L Chloride 106 (98-107) mmol/L Carbon Dioxide 24 (22-30) mmol/L BUN 66 H (9-20) mg/dL Creatinine 9.13 H* (0.66-1.25) mg/dL Glucose 143 H (74-99) mg/dL Calcium 8.9 (8.4-10.2) mg/dL AST 46 (17-59) U/L ALT 34 (4-49) U/L Alkaline Phosphatase 197 H (38-126) U/L Total Protein 6.7 (6.3-8.2) g/dL Albumin 4.0 (3.5-5.0) g/dL Calcium panel 04/18/23 Range/Units 10:45 Calcium 8.9 (8.4-10.2) mg/dL Albumin 4.0 (3.5-5.0) g/dL Pituitary panel 04/18/23 Range/Units 10:45 Sodium 142 (137-145) mmol/L Potassium 5.9 H (3.5-5.1) mmol/L Chloride 106 (98-107) mmol/L Carbon Dioxide 24 (22-30) mmol/L BUN 66 H (9-20) mg/dL Creatinine 9.13 H* (0.66-1.25) mg/dL Glucose 143 H (74-99) mg/dL Calcium 8.9 (8.4-10.2) mg/dL Adrenal panel 04/18/23 Range/Units 10:45 Sodium 142 (137-145) mmol/L Potassium 5.9 H (3.5-5.1) mmol/L Chloride 106 (98-107) mmol/L Carbon Dioxide 24 (22-30) mmol/L BUN 66 H (9-20) mg/dL Creatinine 9.13 H* (0.66-1.25) mg/dL Glucose 143 H (74-99) mg/dL Calcium 8.9 (8.4-10.2) mg/dL Total Bilirubin 0.7 (0.2-1.3) mg/dL AST 46 (17-59) U/L ALT 34 (4-49) U/L Alkaline Phosphatase 197 H (38-126) U/L Total Protein 6.7 (6.3-8.2) g/dL Albumin 4.0 (3.5-5.0) g/dL - Imaging Comments: clot visualized elbow to upper arm and shoulder area of fistula Assessment and Plan Assessment: 1. Thrombosed left upper extremity AV graft 2. Left upper extremity swelling 3. Bilateral lower extremity swelling 4. End-stage renal disease on hemodialysis, Monday schedule Plan: 1. Recommend dialysis per recommendations from hemodialysis, access right IJ tunneled catheter 2. Elevate left upper extremity, may put ENDY hose to left upper extremity 3. Recommend patient follow-up with his vascular surgeon for left AV graft thrombosis 4. No plans on any vascular surgical intervention at this time. Again recommend patient follow-up with his vascular surgeon who did recent AV graft. Thank you for this consultation. Patient is cleared from vascular surgery for discharge. The impression and plan of care has been dictated as directed. I performed a history and examination of this patient, discussed the same with the dictator. I agree with the dictator's note ,documented as a scribe. Any additional findings or plans will be noted.
[2023-04-18] MEDS: SODIUM ZIRCONIUM CYCLOSILICATE 10 GM PACKET PO ONE (15:23)
[2023-04-18] MEDS: hydrALAZINE HCL 50 MG TAB PO SCH (15:23)
[2023-04-18] MEDS: MULTIVITAMINS, THERA 1 EACH TAB PO SCH (15:23)
[2023-04-18] MEDS: CINACALCET 30 MG TAB PO SCH (17:17)
[2023-04-18] MEDS: SEVELAMER 800 MG TAB PO SCH (17:18)
[2023-04-18] MEDS: carvediloL 12.5 MG TAB PO SCH (22:24)
[2023-04-19] MEDS: LORATADINE 10 MG TAB PO SCH (07:49)
[2023-04-19] MEDS: PREGABALIN 75 MG CAP PO SCH (07:49)
[2023-04-19] MEDS: TORSEMIDE 20 MG TAB PO SCH (08:25)
--- NOTE | 2023-04-19 13:40 | P.HPIM ---
History of Present Illness Patient is a 62-year-old male is admitted for nonfunctional occluded, thrombosed left upper extremity AV graft. Patient did not receive dialysis Monday and Monday. Patient usually receives dialysis 4 times a week. Patient is pres ently volume overloaded with mild shortness of breath and pulm edema on the chest x-ray and significant bilateral pedal edema patient barely urinates patient is presently on torsemide. Patient received temporary dialysis catheter. Patient is hyperkalemic at this time secondary to missing dialysis. REVIEW OF SYSTEMS: CONSTITUTIONAL: No fever, no malaise, no fatigue. HEENT: No recent visual problems or hearing problems. Denied any sore throat. CARDIOVASCULAR: No chest pain, orthopnea, PND, no palpitations, no syncope. PULMONARY: No shortness of breath, no cough, no hemoptysis. GASTROINTESTINAL: No diarrhea, no nausea, no vomiting, no abdominal pain. NEUROLOGICAL: No headaches, no weakness, no numbness. HEMATOLOGICAL: Denies any bleeding or petechiae. GENITOURINARY: Denies any burning micturition, frequency, or urgency. MUSCULOSKELETAL/RHEUMATOLOGICAL: Denies any joint pain, swelling, or any muscle pain. ENDOCRINE: Denies any polyuria or polydipsia. The rest of the 14-point review of systems is negative. PHYSICAL EXAMINATION: GENERAL: The patient is alert and oriented x3, not in any acute distress. Well developed, well nourished. HEENT: Pupils are round and equally reacting to light. EOMI. No scleral icterus. No conjunctival pallor. Normocephalic, atraumatic. No pharyngeal erythema. No thyromegaly. CARDIOVASCULAR: S1 and S2 present. No murmurs, rubs, or gallops. PULMONARY bibasilar crackles on exam ABDOMEN: Soft, nontender, nondistended, normoactive bowel sounds. No palpable organomegaly. MUSCULOSKELETAL: No joint swelling or deformity. EXTREMITIES: No cyanosis, clubbing, significant bilateral lower extremity edema NEUROLOGICAL: Gross neurological examination did not reveal any focal deficits. SKIN: No rashes. Assessment and plan -Shortness of breath secondary to pulm edema secondary to missing hemodialysis, patient's volume overload is secondary to incisional disease and missing hemodialysis. Patient received a temporary dialysis catheter will undergo hemodialysis today -Left upper extremity swelling secondary to occluded AV graft. Vascular surgery evaluated the patient patient will elevate his left -Hyperkalemia with serum potassium of 5.9 patient was started started on Lokelma secondary to missed hemodialysis -Type 2 diabetes mellitus -Gastroesophageal reflux disease -End-stage renal disease secondary to diabetic nephropathy -Patient will be resumed on appropriate home medications for above-mentioned medical conditions DVT prophylaxis: Early ambulation Past Medical History Past Medical History: Diabetes Mellitus, Dialysis, GERD/Reflux, Hyperlipidemia, Hypertension, Pneumonia, Renal Disease Additional Past Medical History / Comment(s): End stage renal disease currently on hemodialysis, diabetes mellitus, hypertension, acid reflux and recent hospitalization for right lung pneumonia and parapneumonic effusion. Feb 2022 Admitted to [facility] [place] for bleed ulcer-received 10 units of blood approx per pt. Left arm dialysis shunt occluded per pt History of Any Multi-Drug Resistant Organisms: None Reported Past Surgical History: Hernia Repair Additional Past Surgical History / Comment(s): umb hernia repair/mesh, rt upper chest dialysis cath, multiple large volume paracentesis procedures, upper GI laser for bleeding ulcer Feb 2022 Past Anesthesia/Blood Transfusion Reactions: No Reported Reaction Additional Past Anesthesia/Blood Transfusion Reaction / Comment(s): clausterphobia, multiple blood trasfusion - no reaction Feb 2022 Past Psychological History: No Psychological Hx Reported Smoking Status: Former smoker Past Alcohol Use History: None Reported Past Drug Use History: None Reported - Past Family History Mother Family Medical History: No Reported History Additional Family Medical History / Comment(s): alive healthy age 82 Father Family Medical History: Diabetes Mellitus, Liver Disease, Renal Disease Additional Family Medical History / Comment(s): kidney/liver failure Medications and Allergies Home Medications Medication Instructions Recorded Confirmed Type Loratadine 10 mg PO DAILY 07/17/20 04/18/23 History carvediloL [Coreg] 25 mg PO BID 04/14/22 04/18/23 History hydrALAZINE HCL 75 mg PO TID 04/14/22 04/18/23 History Pregabalin [Lyrica] 75 mg PO DAILY 01/26/23 04/18/23 History Cinacalcet [Sensipar] 30 mg PO TUTHSA 04/18/23 04/18/23 History Ergocalciferol (Vitamin D2) 1,250 mcg PO TH 04/18/23 04/18/23 History [Drisdol (50,000 Iu)] Folic Acid/Vit B Complex and C 0.8 mg PO TUTHSA 04/18/23 04/18/23 History [Janet-Carroll Tablet] Sucroferric Oxyhydroxide [Velphoro] 1,500 mg PO TID-W/MEALS 04/18/23 04/18/23 History Sucroferric Oxyhydroxide [Velphoro] 500 mg PO DAILY PRN 04/18/23 04/18/23 History Torsemide [Demadex] 40 mg PO DAILY 04/18/23 04/18/23 History calcitrioL [Rocaltrol] 0.25 mcg PO TUTHSA 04/18/23 04/18/23 History calcitrioL [Rocaltrol] 0.5 mcg PO TUTHSA 04/18/23 04/18/23 History Allergies Allergy/AdvReac Type Severity Reaction Status Date / Time diphenhydramine Allergy Hallucinati Verified 04/18/23 10:58 [From Benadryl] ons gabapentin [From Neurontin] Allergy Unknown Verified 04/18/23 10:58 Physical Exam Vitals: Vital Signs Pulse Resp BP Pulse Ox 04/19/23 10:00 56 L 16 135/86 95 04/19/23 07:34 53 L 16 157/79 96 04/19/23 05:54 66 20 142/74 98 04/19/23 02:00 66 20 141/70 98 04/18/23 22:22 69 18 172/88 98 04/18/23 19:11 67 18 132/96 98 04/18/23 16:00 63 16 145/81 04/18/23 15:25 60 18 145/81 99 04/18/23 15:00 61 12 149/82 04/18/23 14:00 61 15 156/85 Results CBC & Chem 7: 04/18/23 10:45 04/18/23 10:45
--- NOTE | 2023-04-19 17:37 | P.NPCON ---
History of Present Illness - Reason for Consult end stage renal disease - History of Present Illness Patient is a 62-year-old male with end-stage renal disease maintained on hemodialysis on a Monday schedule. Patient is admitted to the hospital with complaints of increased pain and swell ing in the left arm. Patient had left upper arm AV graft placed about 4 to 6 weeks ago in [place]. It is noted to be thrombosed. He has a right IJ permacath. Patient states that he missed hemodialysis on Monday. Complaining of mild shortness of breath. No history of fever chills nausea or vomiting. Review of Systems As per HPI Past Medical History Past Medical History: Diabetes Mellitus, Dialysis, GERD/Reflux, Hyperlipidemia, Hypertension, Pneumonia, Renal Disease Additional Past Medical History / Comment(s): End stage renal disease currently on hemodialysis, diabetes mellitus, hypertension, acid reflux and recent hospitalization for right lung pneumonia and parapneumonic effusion. Feb 2022 Admitted to [facility] [place] ulcer-received 10 units of blood approx per pt. Left arm dialysis shunt occluded per pt History of Any Multi-Drug Resistant Organisms: None Reported Past Surgical History: Hernia Repair Additional Past Surgical History / Comment(s): umb hernia repair/mesh, rt upper chest dialysis cath, multiple large volume paracentesis procedures, upper GI laser for bleeding ulcer Feb 2022 Past Anesthesia/Blood Transfusion Reactions: No Reported Reaction Additional Past Anesthesia/Blood Transfusion Reaction / Comment(s): clausterphobia, multiple blood trasfusion - no reaction Feb 2022 Past Psychological History: No Psychological Hx Reported Smoking Status: Former smoker Past Alcohol Use History: None Reported Past Drug Use History: None Reported - Past Family History Mother Family Medical History: No Reported History Additional Family Medical History / Comment(s): alive healthy age 82 Father Family Medical History: Diabetes Mellitus, Liver Disease, Renal Disease Additional Family Medical History / Comment(s): kidney/liver failure Medications and Allergies Home Medications Medication Instructions Recorded Confirmed Type Loratadine 10 mg PO DAILY 07/17/20 04/18/23 History carvediloL [Coreg] 25 mg PO BID 04/14/22 04/18/23 History hydrALAZINE HCL 75 mg PO TID 04/14/22 04/18/23 History Pregabalin [Lyrica] 75 mg PO DAILY 01/26/23 04/18/23 History Cinacalcet [Sensipar] 30 mg PO TUTHSA 04/18/23 04/18/23 History Ergocalciferol (Vitamin D2) 1,250 mcg PO TH 04/18/23 04/18/23 History [Drisdol (50,000 Iu)] Folic Acid/Vit B Complex and C 0.8 mg PO TUTHSA 04/18/23 04/18/23 History [Janet-Carroll Tablet] Sucroferric Oxyhydroxide [Velphoro] 1,500 mg PO TID-W/MEALS 04/18/23 04/18/23 History Sucroferric Oxyhydroxide [Velphoro] 500 mg PO DAILY PRN 04/18/23 04/18/23 History Torsemide [Demadex] 40 mg PO DAILY 04/18/23 04/18/23 History calcitrioL [Rocaltrol] 0.25 mcg PO TUTHSA 04/18/23 04/18/23 History calcitrioL [Rocaltrol] 0.5 mcg PO TUTHSA 04/18/23 04/18/23 History Allergies Allergy/AdvReac Type Severity Reaction Status Date / Time diphenhydramine Allergy Hallucinati Verified 04/18/23 10:58 [From Benadryl] ons gabapentin [From Neurontin] Allergy Unknown Verified 04/18/23 10:58 Physical Exam Vitals: Vital Signs Pulse Resp BP Pulse Ox 04/19/23 10:00 56 L 16 135/86 95 04/19/23 07:34 53 L 16 157/79 96 04/19/23 05:54 66 20 142/74 98 04/19/23 02:00 66 20 141/70 98 04/18/23 22:22 69 18 172/88 98 04/18/23 19:11 67 18 132/96 98 Patient is awake, comfortable, alert oriented x 3 Examination of the heart S1 and S2 Examination of the lungs decreased breath sounds at the bases Abdomen is soft obese nontender Examination of lower extremities shows edema 2+ bilaterally. Left upper extremity is swollen and tenderness noted at the site of the graft. No bruit or thrill noted. NEGATIVE RESTORER exam grossly intact. Results - Lab Results Most recent lab results Calcium 8.9 mg/dL (8.4-10.2) 04/18/23 10:45 04/18/23 10:45 04/18/23 10:45 Assessment and Plan Assessment: 1. End-stage renal disease on hemodialysis on a Monday schedule in [place] 2. Thrombosed recently placed AV graft left upper arm 3. Volume overload 4. CKD mineral bone disorder. 5. Hyperkalemia associated with end-stage renal disease and having missed hemodialysis treatment. Plan: Hemodialysis today Increase UF as tolerated Repeat hemodialysis in a.m. Follow-up with vascular surgery as outpatient.
[2023-04-19 19:54] LABS: Hepatitis B Surface Antigen Nonreactive
[2023-04-20 11:05] LABS: BUN/Creat Ratio 6.01 Ratio (12.00-20.00); Blood Urea Nitrogen 45.1 mg/dL (9.0-27.0); Calcium 8.5 mg/dL (8.7-10.3); Carbon Dioxide 24.4 mmol/L (21.6-31.8); Chloride 98 mmol/L (96-109); Glucose 144 mg/dL (70-110); Sodium 138 mmol/L (135-145)
[2023-04-20 16:30] LABS: Glucose,Whole Blood 130 mg/dL (70-110)
[2023-04-20] MEDS: ERGOCALCIFEROL 1,250 MCG (50,000 IU) CAPSULE PO SCH (16:45)
--- NOTE | 2023-04-20 17:26 | P.PN ---
Subjective Patient is seen for follow-up for end-stage renal disease. Status post hemodialysis yesterday. Patient tolerated treatment well. Patient will be dialyzed again today. Complaining of increased abdominal distention. Patient states that he is sched uled for paracentesis today as outpatient. Objective - Vital Signs Vital signs: Vital Signs Temp 97.9 F 04/20/23 16:55 Pulse 62 04/20/23 16:55 Resp 18 04/20/23 16:55 BP 139/67 04/20/23 16:55 Pulse Ox 97 04/20/23 13:37 FiO2 Intake & Output 04/19/23 04/20/23 04/20/23 18:59 06:59 18:59 Intake Total 420 500 Output Total 3500 Balance 420 -3000 Weight 90.718 kg Intake: Oral 420 Hemodialysis 500 Output: Hemodialysis 3500 Other: Voiding Method Toilet Toilet # Voids 1 # Bowel Movements 1 - Exam Patient is awake, comfortable, no acute distress Examination of the heart S1 and S2 Examination of the lungs decreased breath sounds at the bases basal crackles heard Abdomen is morbidly obese Examination lower extremity shows edema 2+ bilaterally with chronic skin changes. Left arm is edematous - Labs CBC & Chem 7: 04/18/23 10:45 04/20/23 07:00 Labs: Abnormal Lab Results - Last 24 Hours (Table) 04/19/23 04/19/23 04/20/23 Range/Units 14:11 14:11 07:00 Anion Gap 15.60 H (4.00-12.00) mmol/L BUN 45.1 H (9.0-27.0) mg/dL Creatinine 7.5 A* (0.6-1.5) mg/dL Est GFR (CKD-EPI) 7 L (>=60) BUN/Creatinine Ratio 6.01 L (12.00-20.00) Ratio Glucose 144 H (70-110) mg/dL POC Glucose (mg/dL) (70-110) mg/dL Calcium 8.5 L (8.7-10.3) mg/dL Phosphorus 7.0 H (2.4-5.1) mg/dL Hep Bs Antibody A (Negative) 04/20/23 Range/Units 16:28 Anion Gap (4.00-12.00) mmol/L BUN (9.0-27.0) mg/dL Creatinine (0.6-1.5) mg/dL Est GFR (CKD-EPI) (>=60) BUN/Creatinine Ratio (12.00-20.00) Ratio Glucose (70-110) mg/dL POC Glucose (mg/dL) 130 H (70-110) mg/dL Calcium (8.7-10.3) mg/dL Phosphorus (2.4-5.1) mg/dL Hep Bs Antibody (Negative) Assessment and Plan Assessment: 1. End-stage renal disease on hemodialysis on a Monday schedule in [place] 2. Thrombosed recently placed AV graft left upper arm 3. Volume overload 4. CKD mineral bone disorder. 5. Hyperkalemia associated with end-stage renal disease and having missed hemodialysis treatment. Plan: Hemodialysis today and again in a.m. Increase UF as tolerated Follow-up with vascular surgery as outpatient.
[2023-04-20 18:35] LABS: Glucose,Whole Blood 189 mg/dL (70-110)
[2023-04-20 21:38] LABS: Glucose,Whole Blood 177 mg/dL (70-110)
--- NOTE | 2023-04-20 22:48 | P.PN ---
Subjective Progress Note Date: 04/20/23 Patient is a 62-year-old male is admitted for nonfunctional occluded, thrombosed left upper extremity AV graft. Patient did not receive dialysis Monday and Monday. Patient usually receives dialysis 4 times a week. Patient is presently volume overloaded with mild shortness of breath and pulm edema on the chest x-ray and significant bilateral pedal edema patient barely urinates patient is presently on torsemide. Patient received temporary dialysis catheter. Patient is hyperkalemic at this time secondary to missing dialysis. 04/20/2023 Patient is seen and evaluated in follow-up this morning lethargic although arousable. Nephrology following with plans on hemodialysis. Patient has received a right chest wall permacath for continued dialysis as patient is maintained on Monday//Monday. Left AV fistula appears swollen with redness and was evaluated by vascular surgery recommending outpatient follow-up with his surgeon in [place]. Patient reports he receives chronic palliative paracentesis in the outpatient setting usually every few weeks and was scheduled for today. Will consult IR for evaluation of possible paracentesis. Plan is for hemodialysis again today with possible discharge planning in the next 24 hours. Review of systems: Constitutional: No reports of fatigue, fever, or chills Cardiovascular: No reports of chest pain or palpitations Respiratory: reports of intermittent shortness of breath GI: No reports of nausea, vomiting, or diarrhea : No reports of dysuria or retention Neurovascular: reports of generalized weakness, continued left arm pain and swelling All medications have been reviewed PHYSICAL EXAMINATION: GENERAL: The patient is alert and oriented x3, lethargic although arousable. Well developed, well nourished. Obese HEENT: Pupils are round and equally reacting to light. EOMI. No scleral icterus. No conjunctival pallor. Normocephalic, atraumatic. No pharyngeal erythema. No thyromegaly. CARDIOVASCULAR: S1 and S2 present. No murmurs, rubs, or gallops. PULMONARY bibasilar crackles on exam ABDOMEN: Soft, nontender, distended, normoactive bowel sounds. No palpable organomegaly. MUSCULOSKELETAL: No joint swelling or deformity. EXTREMITIES: No cyanosis, clubbing, significant bilateral lower extremity edema NEUROLOGICAL: Gross neurological examination did not reveal any focal deficits. SKIN: No rashes. Assessment: -Shortness of breath secondary to pulmonary edema secondary to missing hemodialysis, patient's volume overload is secondary to interstitial disease and missing hemodialysis. Patient received a temporary dialysis catheter will undergo hemodialysis today -Left upper extremity swelling secondary to occluded AV graft. Vascular surgery follow up in [place] outpatient -Hyperkalemia with serum potassium of 5.9 patient was started started on Lokelma secondary to missed hemodialysis -Type 2 diabetes mellitus -Gastroesophageal reflux disease -End-stage renal disease secondary to diabetic nephropathy -Obesity with a BMI of 31.3 -GI prophylaxis -DVT prophylaxis: Early ambulation -Full code Plan: Patient evaluated by vascular surgery underwent right chest wall catheter placement as patient's left AV graft is occluded and recently had intervention in [place] and vascular surgery recommending outpatient follow-up. Patient being followed by nephrology and will receive dialysis as he also received dialysis last night Patient reports he has palliative paracentesis every 3 weeks in the outpatient s etting and was scheduled for today at 1 PM. Will consult IR for possible paracentesis. Encouraged to increase activity as tolerated Plans for discharge in the next 24 hours The impression and plan of care has been dictated by Liset Shipman, Nurse Practitioner as directed. Dr. Alisson MD I have performed a history and examination and MDM of this patient, discussed the same with the dictator, and agree with the dictator's assessment and plan as written ,documented as a scribe. Based on total visit time, I have performed more than 50% of the visit. Objective - Vital Signs Vital signs: Vital Signs Temp 97.5 F L 04/20/23 06:42 Pulse 57 L 04/20/23 06:42 Resp 19 04/20/23 06:42 BP 118/67 04/20/23 06:42 Pulse Ox 96 04/20/23 06:42 FiO2 Intake & Output 04/19/23 04/20/23 04/20/23 18:59 06:59 18:59 Intake Total 420 Balance 420 Weight 90.718 kg Intake: Oral 420 Other: Voiding Method Toilet Toilet # Voids 1 - Labs CBC & Chem 7: 04/18/23 10:45 04/20/23 07:00 Labs: Abnormal Lab Results - Last 24 Hours (Table) 04/19/23 04/19/23 Range/Units 14:11 14:11 Phosphorus 7.0 H (2.4-5.1) mg/dL Hep Bs Antibody A (Negative)
[2023-04-21 06:29] LABS: Glucose,Whole Blood 117 mg/dL (70-110)
[2023-04-21] MEDS: ALBUMIN HUMAN 25% 50 ML in EMPTY BAG 1 BAG IVPB SCH (12:11)
[2023-04-21 12:14] LABS: Glucose,Whole Blood 105 mg/dL (70-110)
--- NOTE | 2023-04-21 12:33 | US ---
Ultrasound-guided paracentesis. DATE OF EXAM: 04/21/2023 CLINICAL HISTORY: Ascites The procedure was discussed with the patient. The risks, complications, benefits, and alternatives we re discussed and any questions were answered. Informed consent was obtained. The patient was placed s upine on the ultrasound table and prepped and draped in the usual sterile fashion. All elements of maximal barrier technique were utilized. Under ultrasound guidance, access into the right lower quadrant was obtained, via the paracentesis catheter system and direct ultrasound guidanc e. Approximately 6 liters of straw-colored fluid was removed. The patient was stable throughout the proc edure and remained stable upon discharge from Department of Radiology. IMPRESSION: Successful paracentesis under ultrasound guidance.
[2023-04-21 14:11] VITALS: TEMP 98.1
[2023-04-21 16:42] VITALS: BP 103/52; PULSE 60; RESP 18
[2023-04-21 16:51] LABS: Glucose,Whole Blood 155 mg/dL (70-110)
--- NOTE | 2023-04-23 13:18 | P.DS ---
Providers Date of admission: 04/18/23 14:41 Expected date of discharge: 04/21/23 Attending physician: Mere Maddox Consults: 04/18/23 14:14 Consult Physician Urgent Consulting Provider: Luciano De Anda Consult Reason/Comments: ESRD on dialysis Do you want consulting provider notified?: Yes Primary care physician: Hayden Cervantes Hospital Course: Final diagnosis -Shortness of breath secondary to pulmonary edema secondary to missing hemodialysis, patient's volume overload is secondary to interstitial disease and missing hemodialysis. Patient received a temporary dialysis catheter -Left upper extremity swelling secondary to occluded AV graft. Vascular surgery follow up in [place] outpatient -Hyperkalemia with serum potassium of 5.9 patient was started started on Lokelma secondary to missed hemodialysis, improved -Type 2 diabetes mellitus -Gastroesophageal reflux disease -End-stage renal disease secondary to diabetic nephropathy -Obesity with a BMI of 31.3 -GI prophylaxis -DVT prophylaxis: Early ambulation -Full code Discharge disposition Patient is being discharged in a stable condition with guarded prognosis to home. Patient will follow-up with Dr. Cervantes in the outpatient setting upon discharge. Patient is to continue with hemodialysis as scheduled. Patient to follow-up with vascular surgeon out of [place] for left AV fistula occlusion. Total time taken is greater than 35 minutes. Hospital course This is a 62-year-old male who was recently admitted with increased shortness of breath with missed hemodialysis secondary to occluded AV graft of the left. Patient evaluated by vascular surgery recommending outpatient follow-up with his previous vascular surgeon who recently saw him for this AV fistula. Patient received a chest wall catheter and will continue on hemodialysis. Patient also follows in the outpatient setting with palliative paracentesis and was scheduled for same day during hospitalization. Interventional radiology evaluated the patient and had palliative paracentesis of almost 7 L removed. Patient did receive albumin and did also continue on hemodialysis 2 days in a row. Patient to continue with normal scheduling and will continue Monday//Monday schedule. Patient has been cleared by consultations. Please refer to consultation notes for further HPI. Currently no reports of chest pain, shor tness of breath, or palpitations. Patient is afebrile. No reports of nausea or vomiting and patient is tolerating diet. Patient will be discharged home today. Keep scheduled hemodialysis appointment for Monday. Physical exam: Gen: This is a 62-year-old male who is awake, alert and oriented x 3, well- developed, well-nourished, obese HEENT: Head is atraumatic, normocephalic. Pupils equal, round. Sclerae is anicteric. NECK: Supple. No JVD. No lymphadenopathy. No thyromegaly. LUNGS: Diminished breath sounds bilaterally otherwise clear to auscultation. No wheezes or rhonchi. No intercostal retractions. HEART: Regular rate and rhythm. No murmur. ABDOMEN: Soft. Obese, mildly distended, bowel sounds are present. No masses. No tenderness. EXTREMITIES: No pedal edema. No calf tenderness. NEUROLOGICAL: Patient is awake, alert and oriented x3. Cranial nerves 2 through 12 are grossly intact. Please refer to medication reconciliation sheet for a list of medications. The impression and plan of care has been dictated by Liset Shipman, Nurse Practitioner as directed. Dr. Alisson MD I have performed a history and examination and MDM of this patient, discussed the same with the dictator, and agree with the dictator's assessment and plan as written ,documented as a scribe. Based on total visit time, I have performed more than 50% of the visit. Patient Condition at Discharge: Stable Plan - Discharge Summary New Discharge Prescriptions: New Acetaminophen Tab [Tylenol] 650 mg PO Q6HR PRN tab PRN Reason: Mild Pain Or Fever > 100.5 Continue Loratadine 10 mg PO DAILY carvediloL [Coreg] 25 mg PO BID calcitrioL [Rocaltrol] 0.5 mcg PO TUTHSA Sucroferric Oxyhydroxide [Velphoro] 500 mg PO DAILY PRN PRN Reason: W/SNACK Sucroferric Oxyhydroxide [Velphoro] 1,500 mg PO TID-W/MEALS Torsemide [Demadex] 40 mg PO DAILY Folic Acid/Vit B Complex and C [Janet-Carroll Tablet] 0.8 mg PO TUTHSA hydrALAZINE HCL 75 mg PO TID Pregabalin [Lyrica] 75 mg PO DAILY calcitrioL [Rocaltrol] 0.25 mcg PO TUTHSA Cinacalcet [Sensipar] 30 mg PO TUTHSA Ergocalciferol (Vitamin D2) [Drisdol (50,000 Iu)] 1,250 mcg PO TH Discharge Medication List Loratadine 10 mg PO DAILY 07/17/20 [History] carvediloL [Coreg] 25 mg PO BID 04/14/22 [History] hydrALAZINE HCL 75 mg PO TID 04/14/22 [History] Pregabalin [Lyrica] 75 mg PO DAILY 01/26/23 [History] Cinacalcet [Sensipar] 30 mg PO TUTHSA 04/18/23 [History] Ergocalciferol (Vitamin D2) [Drisdol (50,000 Iu)] 1,250 mcg PO TH 04/18/23 [History] Folic Acid/Vit B Complex and C [Janet-Carroll Tablet] 0.8 mg PO TUTHSA 04/18/23 [History] Sucroferric Oxyhydroxide [Velphoro] 1,500 mg PO TID-W/MEALS 04/18/23 [History] Sucroferric Oxyhydroxide [Velphoro] 500 mg PO DAILY PRN 04/18/23 [History] Torsemide [Demadex] 40 mg PO DAILY 04/18/23 [History] calcitrioL [Rocaltrol] 0.25 mcg PO TUTHSA 04/18/23 [History] calcitrioL [Rocaltrol] 0.5 mcg PO TUTHSA 04/18/23 [History] Acetaminophen Tab [Tylenol] 650 mg PO Q6HR PRN tab 04/20/23 [Rx] Follow up Appointment(s)/Referral(s): Hayden Cervantes MD [Primary Care Provider] - 04/25/23 1:00 pm Patient Instructions/Handouts: Deep Vein Thrombosis (DC), Hyperkalemia (DC), End Stage Kidney Disease (DC) Activity/Diet/Wound Care/Special Instructions: Activity limited until follow-up Follow-up with your vascular surgeon regarding fistula thrombosis Continue dialysis as scheduled Follow-up primary care provider on discharge Discharge Disposition: HOME SELF-CARE
== END 2023-04-21 17:59 | disposition home or self-care (01) ==
LOC: EC 09:57 → 4SSUR 14:41
PROVIDERS: ADMIT Internal Medicine; ATTEND Internal Medicine
DX: T82.868A Thrombosis due to vascular prosthetic devices, implants and grafts, initial encounter (principal); J81.0 Acute pulmonary edema; E87.5 Hyperkalemia; Y83.2 Surgical operation with anastomosis, bypass or graft as the cause of abnormal reaction of the patient, or of later complication, without mention of misadventure at the time of the procedure; R22.43 Localized swelling, mass and lump, lower limb, bilateral; E87.70 Fluid overload, unspecified; K21.9 Gastro-esophageal reflux disease without esophagitis; E78.5 Hyperlipidemia, unspecified; I12.0 Hypertensive chronic kidney disease with stage 5 chronic kidney disease or end stage renal disease; N18.6 End stage renal disease; N25.0 Renal osteodystrophy; E11.22 Type 2 diabetes mellitus with diabetic chronic kidney disease; E66.01 Morbid (severe) obesity due to excess calories; Z68.31 Body mass index [BMI] 31.0-31.9, adult; Z87.891 Personal history of nicotine dependence; Z99.2 Dependence on renal dialysis; Z79.899 Other long term (current) drug therapy
CPT/HCPCS: 96365; 96366; 99285; 36415; 93005; 83880; 80053; 80048; 83605; 84100; 84484; 85025; 85610; 85730; 86140; 86706; 87340; 71046; 49083; 93971; G0378 ×4; P9047; 90935

== ENCOUNTER 2023-04-19 22:35 | Day surgery (SDC) | payer MEDICARE ==
[2023-05-15 13:12] LABS: Mean Platelet Volume 8.4; Platelet Count 226 k/uL (150-450)
[2023-05-15 13:20] LABS: INR 1.1 (<1.2); Prothrombin Time 11.8 sec (10.0-12.5)
[2023-05-15 13:22] LABS: African American GFR (CKD) 8 (>60 ml/min/1.73 sqM); Glucose 87 mg/dL (74-99); Non-African American GFR(CKD) 7 (>60 ml/min/1.73 sqM)
[2023-05-15 13:28] VITALS: TEMP 98.1
[2023-05-15] MEDS: ALBUMIN HUMAN 25% 50 ML in EMPTY BAG 1 BAG IVPB SCH (13:54)
[2023-05-15 14:38] VITALS: RESP 16
--- NOTE | 2023-05-15 14:56 | US ---
Ultrasound-guided paracentesis. DATE OF EXAM: 05/15/2023 CLINICAL HISTORY: Ascites The procedure was discussed with the patient. The risks, complications, benefits, and alternatives we re discussed and any questions were answered. Informed consent was obtained. The patient was placed s upine on the ultrasound table and prepped and draped in the usual sterile fashion. All elements of maximal barrier technique were utilized. Under ultrasound guidance, access into the right lower quadrant was obtained, via the paracentesis catheter system and direct ultrasound guidanc e. Approximately 6 liters of straw-colored fluid was removed. The patient was stable throughout the proc edure and remained stable upon discharge from Department of Radiology. IMPRESSION: Successful paracentesis under ultrasound guidance.
[2023-05-15 15:13] VITALS: BP 181/91; PULSE 73
== END 2023-05-15 15:15 | disposition home or self-care (01) ==
LOC: RADPROMAIN 22:35
PROVIDERS: ATTEND Internal Medicine
DX: R18.8 Other ascites (principal)
CPT/HCPCS: 82565; 82947; 85049; 85610; 36415; 49083; P9047; 90935

== ENCOUNTER 2023-05-22 13:11 | Day surgery (SDC) | payer MEDICARE ==
[2023-05-17 12:49] VITALS: BMI 29.6
[~2023-05-22 13:11] MED LIST: MIDAZOLAM 2 MG/2 ML VIAL IV PRN; SCOPOLAMINE 1 MG/72 HR PATCH TRANSDERM ONE
[2023-05-22] MEDS: LACTATED RINGERS 1,000 ML IV SCH (13:32)
[2023-05-22] MEDS: SODIUM CHLORIDE 0.9% 500 ML 500 ML IV ONE (13:33)
--- NOTE | 2023-05-22 13:56 | P.GSHP ---
History of Present Illness H&P Date: 05/22/23 Chief Complaint: Renal failure 62-year-old male coming in today for elective peritoneal dialysis catheter insertion. Patient has been on hemodialysis. Patient with persistent ascites. His architectural engineer and I spoke recently. They are requesting that we place the dialysis catheter not only for his kidney failure and for peritoneal dialysis but also to assist with drainage of his ascites. Past Medical History Past Medical History: Diabetes Mellitus, Dialysis, GERD/Reflux, Hyperlipidemia, Hypertension, Pneumonia, Renal Disease Additional Past Medical History / Comment(s): End stage renal disease currently on hemodialysis TUTHSA, bleeding ulcer-received 10 units of blood approx per pt., left upper arm AV graft, ascites, per the pt he is diet controlled diabetic History of Any Multi-Drug Resistant Organisms: None Reported Past Surgical History: Hernia Repair Additional Past Surgical History / Comment(s): umb hernia repair/mesh, rt upper chest dialysis cath, multiple large volume paracentesis procedures, upper GI laser for bleeding ulcer Feb 2022, left upper arm AV graft Past Anesthesia/Blood Transfusion Reactions: No Reported Reaction Additional Past Anesthesia/Blood Transfusion Reaction / Comment(s): multiple blood transfusions - no reaction Past Psychological History: No Psychological Hx Reported Smoking Status: Former smoker Past Alcohol Use History: None Reported Additional Past Alcohol Use History / Comment(s): started smoking at age 16 and quit at age 38 smoked 1-2 ppd Past Drug Use History: None Reported - Past Family History Mother Family Medical History: No Reported History Additional Family Medical History / Comment(s): . Father Family Medical History: Diabetes Mellitus, Liver Disease, Renal Disease Additional Family Medical History / Comment(s): kidney/liver failure Medications and Allergies Home Medications Medication Instructions Recorded Confirmed Type carvediloL [Coreg] 25 mg PO BID 04/14/22 05/22/23 History hydrALAZINE HCL 75 mg PO TID 04/14/22 05/22/23 History Multivitamins, Thera [Multivitamin 1 tab PO DAILY 05/17/23 05/22/23 History (formulary)] Allergies Allergy/AdvReac Type Severity Reaction Status Date / Time diphenhydramine Allergy Itching Verified 05/22/23 13:37 [From Benadryl] gabapentin [From Neurontin] Allergy Unknown Verified 05/22/23 13:37 Surgical - Exam Vital Signs Temp Pulse Resp BP Pulse Ox 97.6 F 68 18 142/72 96 05/22/23 13:47 05/22/23 13:47 05/22/23 13:47 05/22/23 13:47 05/22/23 13:47 Physical exam: General: Well-developed, well-nourished HEENT: Normocephalic, sclerae nonicteric Abdomen: Nontender, nondistended Extremities: No edema Neuro: Alert and oriented Assessment and Plan (1) ESRD (end stage renal disease) Narrative/Plan: 62-year-old male with renal failure. Will proceed with peritoneal dialysis catheter insertion at this time. Risks of bleeding, infection, scarring, leak, hernia, peritonitis, bowel injury, catheter malfunction reviewed. He understands and wishes to proceed. Current Visit: No Status: Acute Code(s): N18.6 - END STAGE RENAL DISEASE SNOMED Code(s): 49778057
[2023-05-22 13:57] LABS: Glucose,Whole Blood 102 mg/dL (70-110)
[2023-05-22] MEDS: HEPARIN SODIUM,PORCINE 5,000 UNIT/ML 1 ML VIAL SQ PRN (14:09)
[2023-05-22] MEDS: ACETAMINOPHEN TAB 500 MG TAB PO PRN (14:09)
[2023-05-22] MEDS: DEXAMETHASONE SOD PHOSPHATE 4 MG/ML 1 ML VIAL IV ONE (14:09)
[2023-05-22] MEDS: ONDANSETRON 4 MG/2 ML VIAL IVP ONE (14:09)
[2023-05-22 14:17] LABS: African American GFR (CKD) 7 (>60 ml/min/1.73 sqM); Anion Gap 13 mmol/L; Blood Urea Nitrogen 65 mg/dL (9-20); Calcium 9.2 mg/dL (8.4-10.2); Carbon Dioxide 23 mmol/L (22-30); Chloride 105 mmol/L (98-107); Glucose 98 mg/dL (74-99); Non-African American GFR(CKD) 6 (>60 ml/min/1.73 sqM); Potassium 5.7 mmol/L (3.5-5.1); Sodium 141 mmol/L (137-145)
[2023-05-22 14:23] LABS: Basophils # (A) 0.1 k/uL (0-0.2); Basophils % (A) 1 %; Eosinophils # (A) 0.2 k/uL (0-0.7); Eosinophils % (A) 3 %; HCT 33.6 % (39.0-53.0); HGB 11.2 gm/dL (13.0-17.5); Lymphocytes # (A) 0.9 k/uL (1.0-4.8); Lymphocytes % (A) 13 %; MCH 32.4 pg (25.0-35.0); MCHC 33.1 g/dL (31.0-37.0); MCV 97.8 fL (80.0-100.0); Mean Platelet Volume 9.9; Monocytes # (A) 0.6 k/uL (0-1.0); Monocytes % (A) 9 %; Neutrophils # (A) 5.1 k/uL (1.3-7.7); Neutrophils % (A) 72 %; Platelet Count 195 k/uL (150-450); RBC 3.44 m/uL (4.30-5.90); RDW 13.9 % (11.5-15.5); WBC 7.1 k/uL (3.8-10.6)
[2023-05-22] MEDS ORDERED: WATER FOR INJECTION, STERILE 10 ML VIAL IV ONE (15:48)
[2023-05-22] MEDS ORDERED: PROPOFOL 10 MG/ML 20 ML VIAL IV ONE (15:48)
[2023-05-22] MEDS ORDERED: fentaNYL (PF) 50 MCG/ML 2 ML AMP ONE (15:48)
[2023-05-22] MEDS ORDERED: ROCURONIUM 10 MG/ML (5 ML VIAL) IV ONE (15:48)
[2023-05-22] MEDS ORDERED: LIDOCAINE 1% INJ 10MG/ML (20 ML MDV) ONE (15:48)
[2023-05-22] MEDS ORDERED: GLYCOPYRROLATE 0.2 MG/ML 2 ML VIAL ONE (15:48)
[2023-05-22] MEDS ORDERED: ePHEDrine 50 MG/ML 1 ML VIAL ONE (15:48)
[2023-05-22] MEDS ORDERED: NEOSTIGMINE 1 MG/ML 10 ML VIAL ONE (15:48)
[2023-05-22] MEDS: BUPIVACAINE (PF) 0.25% 30 ML VIAL SQ ONE (16:15)
[2023-05-22] MEDS ORDERED: NALOXONE 0.4 MG/ML 1 ML VIAL IV PRN (17:04)
[2023-05-22] MEDS ORDERED: HYDROmorphone 0.5 MG/0.5 ML SYRINGE IVP PRN (17:04)
--- NOTE | 2023-05-22 17:07 | P.OP ---
Date of Procedure: 05/22/23 Procedure(s) Performed: PREOPERATIVE DIAGNOSIS: Renal failure POSTOPERATIVE DIAGNOSIS: Same PROCEDURE: Peritoneal dialysis catheter insertion SURGEON: Sanna EBL: Minimal ANESTHESIA: Sedation plus local COMPLICATIONS: None OPERATIVE PROCEDURE: The patient was placed in the operative table in the supine position. The abdomen was prepped and draped in usual sterile fashion. A small vertical incision was made in the right periumbilical location. Dissection down through the subcutaneous tissues took place using electrocautery. The anterior rectus was divided vertically using the scalpel. The rectus was bluntly. The posterior rectus was visualized. An 0 Vicryl pursestring was placed. A small opening in the posterior rectus fascia and peritoneum took place using a Metzenbaum scissors. There were no adhesions to the suture that was placed. A large volume of serous fluid was evacuated. Slightly more than 4 L was removed. The pigtail catheter was advanced into the pelvis over a stylette. No resistance was met. The inner cuff was secured to the fascia using the 0 Vicryl pursestring that was placed. The catheter was tunneled to an exit site in the right lateral lower quadrant. The catheter was connected to the 1 L bag of saline and approximated 800 mL of saline was easily introduced into the peritoneal cavity. The fluid was then allowed to evacuate. The majority of the fluid was returned. The anterior rectus fascia was then reapproximated using a running 0 Vicryl stitch. The subcutaneous tissues reprepped using 3-0 Vicryl sutures and the skin using 4-0 Monocryl sutures. The outpatient dialysis adapter was applied to the end of the catheter. Sterile dressings were then applied after skin glue was placed over the incision. DISPOSITION: Stable to recovery room
[2023-05-22] MEDS: HYDROmorphone 0.5 MG/0.5 ML SYRINGE IVP PRN (17:22)
[2023-05-22 17:26] VITALS: RESP 14; TEMP 97
[2023-05-22 17:28] LABS: Glucose,Whole Blood 120 mg/dL (70-110)
[2023-05-22] MEDS: HYDROcodone/APAP 5-325MG 1 EACH TAB PO PRN (17:52)
[2023-05-22 18:31] VITALS: BP 144/66; PULSE 56
== END 2023-05-22 18:31 | disposition home or self-care (01) ==
LOC: OR 13:11
PROVIDERS: ATTEND Surgery
DX: I12.0 Hypertensive chronic kidney disease with stage 5 chronic kidney disease or end stage renal disease (principal); N18.6 End stage renal disease; E11.22 Type 2 diabetes mellitus with diabetic chronic kidney disease; Z99.2 Dependence on renal dialysis; R18.8 Other ascites; Z79.899 Other long term (current) drug therapy; E11.69 Type 2 diabetes mellitus with other specified complication; E78.5 Hyperlipidemia, unspecified; K21.9 Gastro-esophageal reflux disease without esophagitis; Z87.891 Personal history of nicotine dependence; Z88.8 Allergy status to other drugs, medicaments and biological substances; Z84.1 Family history of disorders of kidney and ureter
CPT/HCPCS: 80048; 85025; 49421; C1752; J1644; J1100; J2710; J0690; J2405; J2001; J3010; J2704; J1170; J0665

== ENCOUNTER 2023-12-16 16:26 | Inpatient (IN) | payer MEDICARE ==
--- NOTE | 2023-12-16 18:21 | ED ---
General Adult HPI - General Chief complaint: Abdominal Pain Stated complaint: abd pain, GI issues Time Seen by Provider: 12/16/23 17:00 Source: patient, family, RN notes reviewed, old records reviewed Mode of arrival: wheelchair Limitations: no limitations - History of Present Illness Initial comments: Patient is a 63-year-old male who presents emergency department complaining of abdominal pain. History of peritoneal dialysis., Diabetes, hypertension. Denies nausea, vomiting. Endorses feeling constipated at home which resolves with stool softeners but is still having some abdominal pain which is why he presents for further evaluation. Denies any chest pain or shortness of breath no other acute complaints. Does not make urine. Presents for further evaluation. Feels weak. Has not received any rounds of dialysis recently and missed his last night run. - Related Data Home Medications Medication Instructions Recorded Confirmed Cinacalcet [Sensipar] 30 mg PO DAILY 12/16/23 12/16/23 Loratadine [Claritin] 10 mg PO DAILY 12/16/23 12/16/23 Losartan [Cozaar] 50 mg PO DAILY 12/16/23 12/16/23 Pregabalin [Lyrica] 75 mg PO BID PRN 12/16/23 12/16/23 Sevelamer [Renvela] 1,600 mg PO BID 12/16/23 12/16/23 Sodium Bicarbonate Tab 650 mg PO DAILY 12/16/23 12/16/23 Sucroferric Oxyhydroxide [Velphoro] 1,500 mg PO TID-W/MEALS 12/16/23 12/16/23 Torsemide [Soaanz] 40 mg PO DAILY 12/16/23 12/16/23 Vit B Complx C/Folic Acid/Zinc 1 tab PO DAILY 12/16/23 12/16/23 [Renaplex Tablet] calcitrioL [Rocaltrol] 0.25 mcg PO MOWEFR 12/16/23 12/16/23 carvediloL [Coreg] 6.25 mg PO BID 12/16/23 12/16/23 hydrALAZINE HCL [Apresoline] 100 mg PO TID 12/16/23 12/16/23 Allergies Allergy/AdvReac Type Severity Reaction Status Date / Time diphenhydramine Allergy Itching Verified 12/16/23 19:50 [From Benadryl] gabapentin [From Neurontin] Allergy Unknown Verified 12/16/23 19:50 Review of Systems ROS Statement: Those systems with pertinent positive or pertinent negative responses have been documented in the HPI. Review of Systems: CONST: Denies fever EYES: Denies blurry vision ENT: Denies nasal congestion C/V: Denies Chest pain RESP: Denies shortness of breath GI: Endorses abdominal pain : Denies dysuria SKIN: Denies rash. MSK: Denies joint pain. NEURO: Denies headache ROS Other: All systems not noted in ROS Statement are negative. Past Medical History Past Medical History: Diabetes Mellitus, GERD/Reflux, Hypertension, Pneumonia, Renal Disease Additional Past Medical History / Comment(s): End stage renal disease currently on hemodialysis, diabetes mellitus, hypertension, acid reflux and recent hospitalization for right lung pneumonia and parapneumonic effusion. [place] 2022 [place] [facility] [place] 10 units of blood approx per pt. Left arm dialysis shunt occluded per pt History of Any Multi-Drug Resistant Organisms: None Reported Past Surgical History: Hernia Repair Additional Past Surgical History / Comment(s): umb hernia repair/mesh, rt upper chest dialysis cath, multiple large volume paracentesis procedures, upper GI laser for bleeding ulcer Feb 2022 Past Anesthesia/Blood Transfusion Reactions: No Reported Reaction Additional Past Anesthesia/Blood Transfusion Reaction / Comment(s): clausterphobia, multiple blood trasfusion - no reaction Feb 2022 Past Psychological History: No Psychological Hx Reported Smoking Status: Former smoker Past Alcohol Use History: None Reported Past Drug Use History: None Reported - Past Family History Mother Family Medical History: No Reported History Additional Family Medical History / Comment(s): . Father Family Medical History: Diabetes Mellitus, Liver Disease, Renal Disease Additional Family Medical History / Comment(s): kidney/liver failure General Exam - General Exam Comments Initial Comments: General: Appears in mild distress secondary to abdominal pain. HEAD: Normal with no signs of head trauma. EYES: PERRLA, EOMI, conjunctiva normal, no discharge. ENT: Hearing grossly intact, normal oropharynx. RESPIRATORY: Clear breath sounds bilaterally. No wheezes, rales, or rhonchi. C/V: Regular rate and rhythm. S1 and S2 auscultated, no edema, peripheral pulses 2+ and intact throughout ABD: Abdomen soft, with no significant distention but patient is tender nonfocally. No guarding or rebound tenderness. No peritoneal signs. EXT: Normal range of motion, no obvious deformity SKIN: No rashes or lesions observed on exposed skin. NEURO: Alert and oriented x 4. Limitations: no limitations Course Vital Signs 12/16/23 12/16/23 12/16/23 16:28 18:34 20:17 Temperature 98.5 F Pulse Rate 71 76 71 Respiratory 18 17 18 Rate Blood Pressure 130/77 117/63 92/52 O2 Sat by Pulse 94 L 97 90 L Oximetry 12/16/23 12/16/23 20:27 20:58 Temperature Pulse Rate 74 Respiratory 16 Rate Blood Pressure 96/51 O2 Sat by Pulse 95 97 Oximetry Medical Decision Making - Medical Decision Making Was pt. sent in by a medical professional or institution (, PA, INSPECTOR QUALITY ASSURANCE, urgent care, hospital, or fci...) When possible be specific @ -No Did you speak to anyone other than the patient for history (EMS, parent, family, police, friend...)? What history was obtained from this source @ -No Did you review nursing and triage notes (agree or disagree)? Why? @ -I reviewed and agree with nursing and triage notes Were old charts reviewed (outside hosp., previous admission, EMS record, old EKG, old radiological studies, urgent care reports/EKG's, fci records)? Report findings @ -No old charts were reviewed Differential Diagnosis (chest pain, altered mental status, abdominal pain women, abdominal pain men, vaginal bleeding, weakness, fever, dyspnea, syncope, headache, dizziness, GI bleed, back pain, seizure, CVA, palpatations, mental health, musculoskeletal)? @ -Differential Abdominal Pain Men: Appendicitis, cholecystitis, diverticulosis, ischemic bowel, pancreatitis, hepatitis, UTI, gastroenteritis, AAA, incarcerated hernia, bowel obstruction, constipation, inflammatory bowel, hepatitis, peptic ulcer disease, splenic infarction, perforated viscus, testicular torsion, this is not meant to be an all-inclusive list EKG interpreted by me (3pts min.). @ -As above X-rays interpreted by me (1pt min.). @ -Chest x-ray shows possible pneumonia however I think this is likely projectional due to rotation as he has no cough or congestion. No respiratory complaints. Allergy agrees with this assessment. CT interpreted by me (1pt min.). @ -CT reveals findings consistent with colitis as well as pulmonary nodule. No other obvious acute findings. U/S interpreted by me (1pt. min.). @ -None done What testing was considered but not performed or refused? (CT, X-rays, U/S, labs)? Why? @ -None What meds were considered but not given or refused? Why? @ -None Did you discuss the management of the patient with other professionals (nilda amaya i.e. , PA, INSPECTOR QUALITY ASSURANCE, lab, RT, psych nurse, director of social work, electrician master, teacher, medical laboratory technical officer, outsole caser)? Give summary @ -Discussed with admitting provider, JOSE Hutchins of [facility] who accepted the adm ission. I spoke with nephrology Dr. Yates who instructed me on what dialysate solution to order for the patient. Was smoking cessation discussed for >3mins.? @ -No Was critical care preformed (if so, how long)? @ -No Were there social determinants of health that impacted care today? How? (Homeles sness, low income, unemployed, alcoholism, drug addiction, transportation, low edu. Level, literacy, decrease access to med. care, fpc, rehab)? @ -No Was there de-escalation of care discussed even if they declined (Discuss DNR or withdrawal of care, Hospice)? DNR status @ -No What co-morbidities impacted this encounter? (DM, HTN, Smoking, COPD, CAD, Cancer, CVA, ARF, Chemo, Hep., AIDS, mental health diagnosis, sleep apnea, morbid obesity)? @ -ESRD on peritoneal dialysis Was patient admitted / discharged? Hospital course, mention meds given and route, prescriptions, significant lab abnormalities, going to OR and other pertinent info. @ -Based on the patient's presentation and physical exam, presents with intractable abdominal pain in the setting of possible bowel obstruction. Is been ongoing for multiple days. Had bowel movements last night but is still having pain. Presents for further evaluation. Did not do peritoneal dialysis yesterday. Vitals are within acceptable limits. We will obtain abdominal labs, CT of the abdomen pelvis. Patient was in agreement this plan. He will be given morphine for analgesia. We will hold fluids at this time. But we will continue to monitor closely. Do not want to volume overload him. Imaging shows a rotated chest. Possible pneumonia per radiology however patient has no symptoms I do believe this is likely secondary to rotation and projection. CT reveals colitis but no obvious acute process at this time. Labs remarkable for leukocytosis of 19 of unknown significance. Findings consistent with CKD and ESRD. Lactic acid within normal limits. At this time, patient will be admitted to the hospital for intractable abdominal pain. Patient did have a iatrogenic drop in blood pressure from the morphine and will be given a small fluid bolus at this time. He was in agreement this plan. We will arrange for peritoneal dialysis with guidance from Dr. Yates. We will also cover for peritonitis with IV antibiotics vancomycin and Zosyn. Fluid cultures will be sent and cell counts will be sent from the peritoneal fluid. Patient was in agreement this plan. I spoke with the admitting provider, JOSE Hutchins of [facility] who accepted the admission. General surgery was consulted. Undiagnosed new problem with uncertain prognosis? @ -No Drug Therapy requiring intensive monitoring for toxicity (Heparin, Nitro, Insulin, Cardizem)? @ -No Were any procedures done? @ -No Diagnosis/symptom? @ -Intractable abdominal pain, possible peritonitis, missed dialysis Acute, or Chronic, or Acute on Chronic? @ -Acute Uncomplicated (without systemic symptoms) or Complicated (systemic symptoms)? @ -Complicated Side effects of treatment? @ -No Exacerbation, Progression, or Severe Exacerbation? @ -No Poses a threat to life or bodily function? How? (Chest pain, [place], [place], pneumonia, PE, COPD, DKA, ARF, appy, cholecystitis, CVA, Diverticulitis, Homicidal, Suicidal, threat to staff... and all critical care pts) @ -Potentially, yes - Lab Data Result diagrams: 12/16/23 20:29 12/16/23 18:30 Lab Results 12/16/23 12/16/23 12/16/23 Range/Units 18:30 18:30 18:30 WBC (3.8-10.6) k/uL RBC (4.30-5.90) m/uL Hgb (13.0-17.5) gm/dL Hct (39.0-53.0) % MCV (80.0-100.0) fL MCH (25.0-35.0) pg MCHC (31.0-37.0) g/dL RDW (11.5-15.5) % Plt Count (150-450) k/uL MPV Neutrophils % % Lymphocytes % % Monocytes % % Eosinophils % % Basophils % % Neutrophils # (1.3-7.7) k/uL Lymphocytes # (1.0-4.8) k/uL Monocytes # (0-1.0) k/uL Eosinophils # (0-0.7) k/uL Basophils # (0-0.2) k/uL PT (10.0-12.5) sec INR (<1.2) APTT (22.0-30.0) sec Sodium 135 L (137-145) mmol/L Potassium 3.5 (3.5-5.1) mmol/L Chloride 97 L (98-107) mmol/L Carbon Dioxide 23 (22-30) mmol/L Anion Gap 15 mmol/L BUN 82 H (9-20) mg/dL Creatinine 11.71 H* (0.66-1.25) mg/dL Est GFR (CKD-EPI)AfAm 5 (>60 ml/min/1.73 sqM) Est GFR (CKD-EPI)NonAf 4 (>60 ml/min/1.73 sqM) Glucose 224 H (74-99) mg/dL Plasma Lactic Acid Dragan 1.5 (0.7-2.0) mmol/L Calcium 7.6 L (8.4-10.2) mg/dL Total Bilirubin 0.9 (0.2-1.3) mg/dL AST 21 (17-59) U/L ALT 13 (4-49) U/L Alkaline Phosphatase 128 H (38-126) U/L Total Protein 5.1 L (6.3-8.2) g/dL Albumin 2.6 L (3.5-5.0) g/dL Amylase 40 (30-110) U/L Lipase 179 (23-300) U/L Influenza Type A (PCR) Not Detected (Not Detectd) Influenza Type B (PCR) Not Detected (Not Detectd) RSV (PCR) Not Detected (Not Detectd) SARS-CoV-2 (PCR) Not Detected (Not Detectd) 12/16/23 12/16/23 Range/Units 20:29 20:29 WBC 19.1 H (3.8-10.6) k/uL RBC 3.74 L (4.30-5.90) m/uL Hgb 11.2 L (13.0-17.5) gm/dL Hct 33.0 L (39.0-53.0) % MCV 88.0 (80.0-100.0) fL MCH 30.0 (25.0-35.0) pg MCHC 34.1 (31.0-37.0) g/dL RDW 13.2 (11.5-15.5) % Plt Count 210 (150-450) k/uL MPV 9.4 Neutrophils % 87 % Lymphocytes % 5 % Monocytes % 6 % Eosinophils % 0 % Basophils % 0 % Neutrophils # 16.7 H (1.3-7.7) k/uL Lymphocytes # 0.9 L (1.0-4.8) k/uL Monocytes # 1.2 H (0-1.0) k/uL Eosinophils # 0.0 (0-0.7) k/uL Basophils # 0.1 (0-0.2) k/uL PT 11.7 (10.0-12.5) sec INR 1.1 (<1.2) APTT 29.3 (22.0-30.0) sec Sodium (137-145) mmol/L Potassium (3.5-5.1) mmol/L Chloride (98-107) mmol/L Carbon Dioxide (22-30) mmol/L Anion Gap mmol/L BUN (9-20) mg/dL Creatinine (0.66-1.25) mg/dL Est GFR (CKD-EPI)AfAm (>60 ml/min/1.73 sqM) Est GFR (CKD-EPI)NonAf (>60 ml/min/1.73 sqM) Glucose (74-99) mg/dL Plasma Lactic Acid Dragan (0.7-2.0) mmol/L Calcium (8.4-10.2) mg/dL Total Bilirubin (0.2-1.3) mg/dL AST (17-59) U/L ALT (4-49) U/L Alkaline Phosphatase (38-126) U/L Total Protein (6.3-8.2) g/dL Albumin (3.5-5.0) g/dL Amylase (30-110) U/L Lipase (23-300) U/L Influenza Type A (PCR) (Not Detectd) Influenza Type B (PCR) (Not Detectd) RSV (PCR) (Not Detectd) SARS-CoV-2 (PCR) (Not Detectd) - EKG Data -: EKG Interpreted by Me EKG Comments: 12-lead Electrocardiogram Interpretation Note EKG was reviewed and interpreted by myself. 12-lead ECG performed at 1813 is interpreted by me as revealing normal sinus rhythm at a rate of 73 beats per minute. Avinger is normal. NM interval is 190 ms, QRS duration is 98 ms, QTc is 416 ms.. There were no ST or T wave abnormalities to suggest myocardial ischemia or injury. R wave progression across the precordium was satisfactory. By my interpretation this EKG is non-diagnostic for acute ischemia. Disposition Clinical Impression: Intractable abdominal pain, Missed dialysis Narrative: concern for peritonitis. Disposition: ADMITTED IP TO THIS HOSP Condition: Stable Referrals: Aleksandr Monsalve MD [Primary Care Provider] - 1-2 days Time of Disposition: 21:25
--- NOTE | 2023-12-16 18:39 | CT ---
EXAMINATION TYPE: CT abdomen pelvis wo con CT DLP: 871.4 mGycm, Automated exposure control for dose reduction was used. DATE OF EXAM: 12/16/2023 6:01 PM COMPARISON: 07/17/2020 CLINICAL INDICATION: Male, 63 years old with history of abdominal pain, constipation; Abdominal pain, constipation. TECHNIQUE: Axial CT abdomen pelvis wo con;Sagittal and coronal reformats were created on a separate workstation. Contrast used: mL of , (none if empty) Oral contrast used: without Oral Contrast (none if empty) FINDINGS: LOWER CHEST: The heart is enlarged for size. Coronary artery atherosclerosis and aortic valve calcifi cations. Left lower lobe 4 mm pulmonary nodule stable from prior. ABDOMEN LIVER: Unremarkable GALLBLADDER AND BILE DUCTS: Unremarkable. PANCREAS: Unremarkable. SPLEEN: Unremarkable. ADRENAL GLANDS: Unremarkable. KIDNEYS AND URETERS: No evidence of hydronephrosis or renal calculus. The ureters are unremarkable. PELVIS BLADDER: Unremarkable REPRODUCTIVE: Unremarkable. ABDOMEN & PELVIS STOMACH AND BOWEL: Colonic wall the descending colon and possibly origins of the sigmoid colon may be mildly thickened. No evidence of bowel obstruction. Small amount of stool throughout the colon. PERITONEUM/RETROPERITONEUM: Peritoneal dialysis catheter terminating in the low pelvis. There is sma ll/trace abdominal fluid throughout the abdomen. VASCULATURE: No evidence of aortic aneurysm. Severe atherosclerosis of the arterial vasculature. MUSCULOSKELETAL: No acute osseous abnormalities LYMPH NODES: No gross evidence for lymphadenopathy.r prominent lymph nodes in the retroperitoneum the largest measuring up to 10 mm in short axis series 201 image 66. SOFT TISSUE/ABDOMINAL WALL: Unremarkable IMPRESSION: 1. There may be mild wall thickening of the colon seen in a few the images. Correlate for colitis. O therwise No definitive acute abdominal process. Dialysis catheter with free fluid in the abdomen limi ts evaluation for fat stranding. 2. Small amount of stool throughout the colon. 3. Left lower lobe 4 mm pulmonary nodule. It is stable from 07/17/2020 [facility], , 12/16/2023 6:37 PM
[2023-12-16] MEDS: PANTOPRAZOLE 40 MG/10 ML VIAL IVP STA (18:49)
[2023-12-16] MEDS: ONDANSETRON 4 MG/2 ML VIAL IVP STA (18:49)
[2023-12-16] MEDS: MORPHINE SULFATE 4 MG/ML SYRINGE IVP STA (18:49)
[2023-12-16 19:03] LABS: ALT 13 U/L (4-49); AST 21 U/L (17-59); African American GFR (CKD) 5 (>60 ml/min/1.73 sqM); Albumin 2.6 g/dL (3.5-5.0); Alkaline Phosphatase 128 U/L (38-126); Amylase 40 U/L (30-110); Anion Gap 15 mmol/L; Blood Urea Nitrogen 82 mg/dL (9-20); Calcium 7.6 mg/dL (8.4-10.2); Carbon Dioxide 23 mmol/L (22-30); Chloride 97 mmol/L (98-107); Glucose 224 mg/dL (74-99); Lipase 179 U/L (23-300); Non-African American GFR(CKD) 4 (>60 ml/min/1.73 sqM); Potassium 3.5 mmol/L (3.5-5.1); Sodium 135 mmol/L (137-145); Total Bilirubin 0.9 mg/dL (0.2-1.3); Total Protein 5.1 g/dL (6.3-8.2)
--- NOTE | 2023-12-16 20:02 | XR ---
EXAMINATION TYPE: XR chest 2V DATE OF EXAM: 12/16/2023 7:28 PM CLINICAL INDICATION: Male, 63 years old with history of abdominal pain; H COMPARISON: Chest radiographs from 04/18/2023 TECHNIQUE: XR chest 2V Frontal view of the chest. FINDINGS: Lungs/Pleura: Airspace opacities right upper and lower lobe possibly due to patient positioning. Ther e is no evidence of pleural effusion, focal consolidation, or pneumothorax. Pulmonary vascularity: Unremarkable. Heart/mediastinum: Cardiomediastinal silhouette is unremarkable. Musculoskeletal: No acute osseous pathology. Other findings: Left axilla stent graft. IMPRESSION: Right lower and upper lung airspace opacities correlate for pneumonia. Alternatively this could repre sent projection as the patient is rotated. [facility], , 12/16/2023 7:59 PM
[2023-12-16] MEDS: SODIUM CHLORIDE 0.9% 500 ML 500 ML IV ONE (20:23)
[2023-12-16 21:12] LABS: INR 1.1 (<1.2); Partial Thromboplastin Time 29.3 sec (22.0-30.0); Prothrombin Time 11.7 sec (10.0-12.5)
[2023-12-16 21:17] LABS: Basophils # (A) 0.1 k/uL (0-0.2); Basophils % (A) 0 %; Eosinophils % (A) 0 %; HGB 11.2 gm/dL (13.0-17.5); Lymphocytes # (A) 0.9 k/uL (1.0-4.8); Lymphocytes % (A) 5 %; MCHC 34.1 g/dL (31.0-37.0); Mean Platelet Volume 9.4; Monocytes # (A) 1.2 k/uL (0-1.0); Monocytes % (A) 6 %; Neutrophils # (A) 16.7 k/uL (1.3-7.7); Neutrophils % (A) 87 %; Platelet Count 210 k/uL (150-450); RBC 3.74 m/uL (4.30-5.90); RDW 13.2 % (11.5-15.5); WBC 19.1 k/uL (3.8-10.6)
[2023-12-16] MEDS ORDERED: VANCOMYCIN IV PER PHARMACY 1 EACH MISC MISCELLANE PRN (21:35)
[2023-12-16] MEDS ORDERED: NALOXONE 0.4 MG/ML 1 ML VIAL IV PRN (21:39)
[2023-12-16] MEDS ORDERED: ONDANSETRON 4 MG/2 ML VIAL IVP PRN (21:39)
[2023-12-16] MEDS: SODIUM CHLORIDE 0.9% 500 ML 500 ML IV STA (21:46)
[2023-12-16] MEDS: VANCOMYCIN 1,500 MG in SODIUM CHLORIDE 0.9% 250 ML IVPB ONE (22:15)
[2023-12-17] MEDS: DIALYSIS (PERIT 1.5%) 2,500 ML 37.5 G/2,500 ML BAG INTRAPERIT SCH (00:34)
[2023-12-17] MEDS: hydrALAZINE HCL 50 MG TAB PO SCH (00:50)
[2023-12-17] MEDS: PIPERACILLIN-TAZOBACTAM 3.375 GM in SODIUM CHLORIDE 0.9% 100 ML IVPB SCH (02:33)
[2023-12-17] MEDS: SODIUM CHLORIDE 0.9% 250 ML IV ONE (02:50)
[2023-12-17] MEDS: SODIUM CHLORIDE 0.9% 1,000 ML IV SCH (02:50)
--- NOTE | 2023-12-17 05:00 | P.CON ---
Consult Note - . Consult date: 12/17/23 Assessment/Plan:: 63-year-old male who presents emergency department complaining of abdominal pain. History of peritoneal dialysis. Denies nausea and vomiting. Endorses feeling constipated at home which resolves with stool softeners but is still having some abdominal pain which is why he presents for further evaluation. Denies any chest pain or shortness of breath no other acute complaints. Does not make urine. He had a CT-AP which showed some inflammation around colon suggesting colitis. There was not any fat stranding around the PD catheter to suggest infection. Review of Systems ROS Statement: Those systems with pertinent positive or pertinent negative responses have been documented in the HPI. Review of Systems: CONST: Denies fever EYES: Denies blurry vision ENT: Denies nasal congestion C/V: Denies Chest pain RESP: Denies shortness of breath GI: Endorses abdominal pain : Denies dysuria SKIN: Denies rash. MSK: Denies joint pain. NEURO: Denies headache Past Medical History Past Medical History: Diabetes Mellitus, GERD/Reflux, Hypertension, Pneumonia, Renal Disease Additional Past Medical History / Comment(s): End stage renal disease currently on hemodialysis, diabetes mellitus, hypertension, acid reflux and recent hospitalization for right lung pneumonia and parapneumonic effusion. Feb 2022 Admitted to [facility] [place] for bleed ulcer-received 10 units of blood approx per pt. Left arm dialysis shunt occluded per pt History of Any Multi-Drug Resistant Organisms: None Reported Past Surgical History: Hernia Repair Additional Past Surgical History / Comment(s): umb hernia repair/mesh, rt upper chest dialysis cath, multiple large volume paracentesis procedures, upper GI laser for bleeding ulcer Feb 2022 Past Anesthesia/Blood Transfusion Reactions: No Reported Reaction Additional Past Anesthesia/Blood Transfusion Reaction / Comment(s): clausterphobia, multiple blood trasfusion - no reaction Feb 2022 Past Psychological History: No Psychological Hx Reported Smoking Status: Former smoker Past Alcohol Use History: None Reported Past Drug Use History: None Reported - Past Family History Mother Family Medical History: No Reported History Additional Family Medical History / Comment(s): . Father Family Medical History: Diabetes Mellitus, Liver Disease, Renal Disease Additional Family Medical History / Comment(s): kidney/liver failure General Exam General: Appears in mild distress secondary to abdominal pain. HEAD: Normal with no signs of head trauma. EYES: PERRLA, EOMI, conjunctiva normal, no discharge. ENT: Hearing grossly intact, normal oropharynx. RESPIRATORY: Clear breath sounds bilaterally. No wheezes, rales, or rhonchi. C/V: Regular rate and rhythm. S1 and S2 auscultated, no edema, peripheral pulses 2+ and intact throughout ABD: Abdomen soft, with no significant distention but patient is tender nonfocally. No guarding or rebound tenderness. No peritoneal signs. EXT: Normal range of motion, no obvious deformity SKIN: No rashes or lesions observed on exposed skin. NEURO: Alert and oriented x 4. 63 year old male with abdominal pain. History of Peritoneal Dialysis Catheter -CT-AP shows some inflammation around the colon suggesting colitis. There is no fat stranding around the PD catheter to suggest infection. -Will follow up PD fluid cultures and blood cultures -Maco/Silke -Further recs to follow Willie Canela [facility] [phone]
[2023-12-17 07:07] LABS: Basophils # (A) 0.1 k/uL (0-0.2); Basophils % (A) 0 %; Eosinophils # (A) 0.1 k/uL (0-0.7); Eosinophils % (A) 0 %; HCT 30.5 % (39.0-53.0); HGB 10.4 gm/dL (13.0-17.5); Lymphocytes % (A) 7 %; MCH 30.6 pg (25.0-35.0); MCHC 34.2 g/dL (31.0-37.0); MCV 89.6 fL (80.0-100.0); Mean Platelet Volume 10.5; Monocytes % (A) 7 %; Neutrophils # (A) 11.8 k/uL (1.3-7.7); Neutrophils % (A) 83 %; Platelet Count 202 k/uL (150-450); RDW 13.5 % (11.5-15.5); WBC 14.2 k/uL (3.8-10.6)
[2023-12-17 07:16] LABS: ALT 10 U/L (4-49); AST 16 U/L (17-59); African American GFR (CKD) 5 (>60 ml/min/1.73 sqM); Albumin 2.2 g/dL (3.5-5.0); Alkaline Phosphatase 106 U/L (38-126); Anion Gap 12 mmol/L; Blood Urea Nitrogen 76 mg/dL (9-20); Calcium 7.6 mg/dL (8.4-10.2); Carbon Dioxide 23 mmol/L (22-30); Chloride 101 mmol/L (98-107); Glucose 177 mg/dL (74-99); Non-African American GFR(CKD) 4 (>60 ml/min/1.73 sqM); Potassium 3.2 mmol/L (3.5-5.1); Sodium 136 mmol/L (137-145); Total Bilirubin 0.9 mg/dL (0.2-1.3); Total Protein 4.4 g/dL (6.3-8.2)
[2023-12-17] MEDS: carvediloL 6.25 MG TAB PO SCH (07:26)
[2023-12-17] MEDS: SEVELAMER 800 MG TAB PO SCH ×2 (09:58→10:22)
[2023-12-17] MEDS: LOSARTAN 50 MG TAB PO SCH (09:59)
[2023-12-17] MEDS: TORSEMIDE 20 MG TAB PO SCH (10:11)
[2023-12-17] MEDS: PREGABALIN 75 MG CAP PO PRN (10:11)
[2023-12-17] MEDS: SODIUM BICARBONATE TAB 650 MG TAB PO SCH (10:11)
[2023-12-17] MEDS: LORATADINE 10 MG TAB PO SCH (10:12)
[2023-12-17] MEDS: PANTOPRAZOLE 40 MG/10 ML VIAL IV SCH (10:12)
[2023-12-17] MEDS: CINACALCET 30 MG TAB PO SCH (10:13)
--- NOTE | 2023-12-17 10:55 | P.NPCON ---
History of Present Illness - Reason for Consult end stage renal disease - History of Present Illness patient is a 63-year-old male with end-stage renal disease for peritoneal dialysis.he is admitted to the hospital with complaints of abdominal pain for 1- 2 days which has progressively worsened. No history of fever or chills. Patient reports constipation. He states that fluid has been clear. Patient did not to an exchange prior to coming into the hospital. CT abdomen shows inflammatory changes around the colon suggesting colitis. Patient is being evaluated by general surgery. Fluid cell count and culture was sent out yesterday Mike at Patient received IV antibiotics in the ER, vancomycin and Zosyn. Past Medical History Past Medical History: Diabetes Mellitus, GERD/Reflux, Hypertension, Pneumonia, Renal Disease Additional Past Medical History / Comment(s): End stage renal disease currently on hemodialysis, diabetes mellitus, hypertension, acid reflux and recent hospitalization for right lung pneumonia and parapneumonic effusion. Feb 2022 Admitted to [facility] [place] for bleed ulcer-received 10 units of blood approx per pt. Left arm dialysis shunt occluded per pt History of Any Multi-Drug Resistant Organisms: None Reported Past Surgical History: Hernia Repair Additional Past Surgical History / Comment(s): umb hernia repair/mesh, rt upper chest dialysis cath, multiple large volume paracentesis procedures, upper GI laser for bleeding ulcer Feb 2022 Past Anesthesia/Blood Transfusion Reactions: No Reported Reaction Additional Past Anesthesia/Blood Transfusion Reaction / Comment(s): clausterphobia, multiple blood trasfusion - no reaction Feb 2022 Past Psychological History: No Psychological Hx Reported Smoking Status: Former smoker Past Alcohol Use History: None Reported Past Drug Use History: None Reported - Past Family History Mother Family Medical History: No Reported History Additional Family Medical History / Comment(s): . Father Family Medical History: Diabetes Mellitus, Liver Disease, Renal Disease Additional Family Medical History / Comment(s): kidney/liver failure Medications and Allergies Home Medications Medication Instructions Recorded Confirmed Type Cinacalcet [Sensipar] 30 mg PO DAILY 12/16/23 12/16/23 History Loratadine [Claritin] 10 mg PO DAILY 12/16/23 12/16/23 History Losartan [Cozaar] 50 mg PO DAILY 12/16/23 12/16/23 History Pregabalin [Lyrica] 75 mg PO BID PRN 12/16/23 12/16/23 History Sevelamer [Renvela] 1,600 mg PO BID 12/16/23 12/16/23 History Sodium Bicarbonate Tab 650 mg PO DAILY 12/16/23 12/16/23 History Sucroferric Oxyhydroxide [Velphoro] 1,500 mg PO TID-W/MEALS 12/16/23 12/16/23 History Torsemide [Soaanz] 40 mg PO DAILY 12/16/23 12/16/23 History Vit B Complx C/Folic Acid/Zinc 1 tab PO DAILY 12/16/23 12/16/23 History [Renaplex Tablet] calcitrioL [Rocaltrol] 0.25 mcg PO MOWEFR 12/16/23 12/16/23 History carvediloL [Coreg] 6.25 mg PO BID 12/16/23 12/16/23 History hydrALAZINE HCL [Apresoline] 100 mg PO TID 12/16/23 12/16/23 History Allergies Allergy/AdvReac Type Severity Reaction Status Date / Time diphenhydramine Allergy Itching Verified 12/16/23 19:50 [From Benadryl] gabapentin [From Neurontin] Allergy Unknown Verified 12/16/23 19:50 Physical Exam Vitals: Vital Signs Temp Pulse Pulse Resp BP BP Pulse Ox 12/17/23 08:22 98.6 F 59 L 17 104/63 95 12/17/23 07:34 57 L 16 90/55 98 12/17/23 06:00 98.4 F 55 L 18 99/52 96 12/17/23 05:00 66 18 107/66 97 12/17/23 04:00 60 18 92/50 97 12/17/23 03:00 70 18 94/52 97 12/17/23 02:00 67 18 86/55 96 12/17/23 01:00 62 18 90/47 99 12/17/23 00:30 99.1 F 72 18 97/56 97 12/16/23 22:00 78 18 109/60 97 12/16/23 21:30 70 16 83/45 97 12/16/23 20:58 74 16 96/51 97 12/16/23 20:27 95 12/16/23 20:17 71 18 92/52 90 L 12/16/23 18:34 76 17 117/63 97 12/16/23 16:28 98.5 F 71 18 130/77 94 L Intake and Output 12/16/23 12/17/23 12/17/23 22:59 06:59 14:59 Other: Weight 88.451 kg patient is awake, comfortable, no acute distress Examination of the heart S1 and S2 Examination of the lungs decreased breath sounds at the bases Abdomen is soft and her Examination of lower extremity shows no significant edema SOUP PERSON exam grossly intact Results - Lab Results Most recent lab results Calcium 7.6 mg/dL (8.4-10.2) L 12/17/23 06:00 12/17/23 06:00 12/17/23 06:00 Assessment and Plan Assessment: 1. End-stage renal disease maintained on peritoneal dialysis 2 Abdominal pain rule out peritonitis versus colitis. Status post IV antibiotics. Fluid cell count and culture is pending. 3. Possible colitis 4. CK D mineral bone disorder Plan: continue current PD exchanges. Follow-up on PD fluid cell count and culture. Replace potassium Continue with IV fluids. Thank you for the consultation. We will continue to follow the patient with you during his hospitalization.
[2023-12-17] MEDS: MORPHINE SULFATE 4 MG/ML SYRINGE IVP PRN (11:31)
[2023-12-17 13:46] LABS: Appearance,BF Clear (Clear)
--- NOTE | 2023-12-17 16:10 | P.HPIM ---
History of Present Illness This is a pleasant 63 years old male with past medical history of multiple medical problems including diabetes, hypertension, end-stage renal disease on peritoneal dialysis. Patient presents because of abdominal pain, for a few days but he could not specify in the right lower quadrant radiating across his lower abdomen moderate to severe in quality, nonspecific with no relieving or precipitating factors. Patient has good bowel movement as he describes he has no vomiting and could eat hamburger today although there is some loss of appetite. He does not make urine, he denies chest pain. However he was complaining from some dyspnea with no cough. No headache dizziness weakness or numbness He is with no smoking alcohol or illicit drug history He is afebrile, vitals are stable He has evidence of leukocytosis 19K, down to 14K, hemoglobin 10-11 which is close to baseline of 9-10. Liver enzymes not elevated and rest of labs unremarkable Chest x-ray showing possible right lower lobe opacity. CT of the abdomen pelvis without contrast showing mild thickening of the colon suspicious for colitis Blood cultures requested as well as peritoneal fluid catheter as well as suspicion of some infection around the area Patient currently started on Zosyn and IV vancomycin Review of Systems Review of systems CONSTITUTIONAL: No fever, no malaise, no fatigue. HEENT: No recent visual problems or hearing problems. Denied any sore throat. CARDIOVASCULAR: No orthopnea, PND, no palpitations, no syncope. PULMONARY: No shortness of breath, no cough, no hemoptysis. GASTROINTESTINAL: As above NEUROLOGICAL: No headaches, no weakness, no numbness. HEMATOLOGICAL: Denies any bleeding or petechiae. GENITOURINARY: Patient does not make urine MUSCULOSKELETAL/RHEUMATOLOGICAL: Denies any joint pain, swelling, or any muscle pain. ENDOCRINE: Denies any polyuria or polydipsia. Past Medical History Past Medical History: Diabetes Mellitus, GERD/Reflux, Hypertension, Pneumonia, Renal Disease Additional Past Medical History / Comment(s): End stage renal disease currently on hemodialysis, diabetes mellitus, hypertension, acid reflux and recent hospitalization for right lung pneumonia and parapneumonic effusion. Feb 2022 Admitted to [facility] [place] for bleed ulcer-received 10 units of blood approx per pt. Left arm dialysis shunt occluded per pt History of Any Multi-Drug Resistant Organisms: None Reported Past Surgical History: Hernia Repair Additional Past Surgical History / Comment(s): umb hernia repair/mesh, rt upper chest dialysis cath, multiple large volume paracentesis procedures, upper GI laser for bleeding ulcer Feb 2022 Past Anesthesia/Blood Transfusion Reactions: No Reported Reaction Additional Past Anesthesia/Blood Transfusion Reaction / Comment(s): clausterphobia, multiple blood trasfusion - no reaction Feb 2022 Past Psychological History: No Psychological Hx Reported Smoking Status: Former smoker Past Alcohol Use History: None Reported Past Drug Use History: None Reported - Past Family History Mother Family Medical History: No Reported History Additional Family Medical History / Comment(s): . Father Family Medical History: Diabetes Mellitus, Liver Disease, Renal Disease Additional Family Medical History / Comment(s): kidney/liver failure Medications and Allergies Home Medications Medication Instructions Recorded Confirmed Type Cinacalcet [Sensipar] 30 mg PO DAILY 12/16/23 12/16/23 History Loratadine [Claritin] 10 mg PO DAILY 12/16/23 12/16/23 History Losartan [Cozaar] 50 mg PO DAILY 12/16/23 12/16/23 History Pregabalin [Lyrica] 75 mg PO BID PRN 12/16/23 12/16/23 History Sevelamer [Renvela] 1,600 mg PO BID 12/16/23 12/16/23 History Sodium Bicarbonate Tab 650 mg PO DAILY 12/16/23 12/16/23 History Sucroferric Oxyhydroxide [Velphoro] 1,500 mg PO TID-W/MEALS 12/16/23 12/16/23 History Torsemide [Soaanz] 40 mg PO DAILY 12/16/23 12/16/23 History Vit B Complx C/Folic Acid/Zinc 1 tab PO DAILY 12/16/23 12/16/23 History [Renaplex Tablet] calcitrioL [Rocaltrol] 0.25 mcg PO MOWEFR 12/16/23 12/16/23 History carvediloL [Coreg] 6.25 mg PO BID 12/16/23 12/16/23 History hydrALAZINE HCL [Apresoline] 100 mg PO TID 12/16/23 12/16/23 History Allergies Allergy/AdvReac Type Severity Reaction Status Date / Time diphenhydramine Allergy Itching Verified 12/16/23 19:50 [From Benadryl] gabapentin [From Neurontin] Allergy Unknown Verified 10/19/24 19:50 Physical Exam Vitals: Vital Signs Temp Pulse Pulse Resp BP BP Pulse Ox 12/17/23 08:22 98.6 F 59 L 17 104/63 95 12/17/23 07:34 57 L 16 90/55 98 12/17/23 06:00 98.4 F 55 L 18 99/52 96 12/17/23 05:00 66 18 107/66 97 12/17/23 04:00 60 18 92/50 97 12/17/23 03:00 70 18 94/52 97 12/17/23 02:00 67 18 86/55 96 12/17/23 01:00 62 18 90/47 99 12/17/23 00:30 99.1 F 72 18 97/56 97 12/16/23 22:00 78 18 109/60 97 12/16/23 21:30 70 16 83/45 97 12/16/23 20:58 74 16 96/51 97 12/16/23 20:27 95 12/16/23 20:17 71 18 92/52 90 L 12/16/23 18:34 76 17 117/63 97 12/16/23 16:28 98.5 F 71 18 130/77 94 L Intake and Output 12/16/23 12/17/23 12/17/23 22:59 06:59 14:59 Other: Weight 88.451 kg GENERAL: The patient is alert and oriented x3, not in any acute distress. Well developed, well nourished. HEENT: Pupils are round and equally reacting to light. EOMI. No scleral icterus. No conjunctival pallor. Normocephalic, atraumatic. No pharyngeal erythema. No thyromegaly. CARDIOVASCULAR: S1 and S2 present. No murmurs, rubs, or gallops. PULMONARY: Chest is clear to auscultation, no wheezing , no crackles. ABDOMEN: Soft, right lower quadrant tenderness, nondistended, normoactive bowel sounds. No palpable organomegaly. MUSCULOSKELETAL: No joint swelling or deformity. EXTREMITIES: No cyanosis, clubbing, or pedal edema. NEUROLOGICAL: Gross neurological examination did not reveal any focal deficits. SKIN: No rashes. no petechiae. Results CBC & Chem 7: 12/17/23 06:00 12/17/23 06:00 Labs: Abnormal Lab Results - Last 24 Hours (Table) 12/16/23 12/16/23 12/17/23 Range/Units 18:30 20:29 06:00 WBC 19.1 H 14.2 H (3.8-10.6) k/uL RBC 3.74 L 3.40 L (4.30-5.90) m/uL Hgb 11.2 L 10.4 L (13.0-17.5) gm/dL Hct 33.0 L 30.5 L (39.0-53.0) % Neutrophils # 16.7 H 11.8 H (1.3-7.7) k/uL Lymphocytes # 0.9 L (1.0-4.8) k/uL Monocytes # 1.2 H (0-1.0) k/uL Sodium 135 L (137-145) mmol/L Potassium (3.5-5.1) mmol/L Chloride 97 L (98-107) mmol/L BUN 82 H (9-20) mg/dL Creatinine 11.71 H* (0.66-1.25) mg/dL Glucose 224 H (74-99) mg/dL Calcium 7.6 L (8.4-10.2) mg/dL AST (17-59) U/L Alkaline Phosphatase 128 H (38-126) U/L Total Protein 5.1 L (6.3-8.2) g/dL Albumin 2.6 L (3.5-5.0) g/dL 12/17/23 Range/Units 06:00 WBC (3.8-10.6) k/uL RBC (4.30-5.90) m/uL Hgb (13.0-17.5) gm/dL Hct (39.0-53.0) % Neutrophils # (1.3-7.7) k/uL Lymphocytes # (1.0-4.8) k/uL Monocytes # (0-1.0) k/uL Sodium 136 L (137-145) mmol/L Potassium 3.2 L (3.5-5.1) mmol/L Chloride (98-107) mmol/L BUN 76 H (9-20) mg/dL Creatinine 11.45 H* (0.66-1.25) mg/dL Glucose 177 H (74-99) mg/dL Calcium 7.6 L (8.4-10.2) mg/dL AST 16 L (17-59) U/L Alkaline Phosphatase (38-126) U/L Total Protein 4.4 L (6.3-8.2) g/dL Albumin 2.2 L (3.5-5.0) g/dL Assessment and Plan Assessment: Abdominal pain secondary to colitis Right lower lobe pneumonia End-stage renal disease on peritoneal dialysis Bilateral leg edema Hypertension History of GERD History of bleeding ulcer Plan: Continue with IV vancomycin and Zosyn Follow-up blood culture Follow peritoneal fluid culture Continue with pain management Patient currently on room air Continue with GI and DVT prophylaxis Prognosis is guarded
[2023-12-17] MEDS: VANCOMYCIN 1,500 MG in SODIUM CHLORIDE 0.9% 500 ML 500 ML IVPB ONE (18:21)
[2023-12-17] MEDS ORDERED: DIALYSIS DEX INTRAPERIT ONE (23:45)
[2023-12-18] MEDS: DIALYSIS DEX INTRAPERIT ONE ×2 (00:24→12:35)
[2023-12-18] MEDS: POTASSIUM CHLORIDE ER 20 MEQ TAB.ER PO STA (00:24)
[2023-12-18] MEDS: CEFTAZIDIME INTRAPERIT ONE (00:24)
[2023-12-18 10:07] LABS: Glucose,Whole Blood 254 mg/dL (70-110)
[2023-12-18 11:24] LABS: Basophils # (A) 0.1 k/uL (0-0.2); Basophils % (A) 1 %; Eosinophils # (A) 0.2 k/uL (0-0.7); Eosinophils % (A) 2 %; HCT 33.3 % (39.0-53.0); Lymphocytes % (A) 9 %; MCH 30.2 pg (25.0-35.0); MCV 91.5 fL (80.0-100.0); Mean Platelet Volume 10.4; Monocytes # (A) 0.6 k/uL (0-1.0); Monocytes % (A) 6 %; Neutrophils # (A) 8.8 k/uL (1.3-7.7); Neutrophils % (A) 82 %; Platelet Count 201 k/uL (150-450); RBC 3.64 m/uL (4.30-5.90); RDW 13.6 % (11.5-15.5); WBC 10.8 k/uL (3.8-10.6)
[2023-12-18 11:40] LABS: ALT 14 U/L (4-49); African American GFR (CKD) 5 (>60 ml/min/1.73 sqM); Albumin 2.6 g/dL (3.5-5.0); Anion Gap 17 mmol/L; Blood Urea Nitrogen 74 mg/dL (9-20); Calcium 7.8 mg/dL (8.4-10.2); Carbon Dioxide 19 mmol/L (22-30); Chloride 99 mmol/L (98-107); Globulin 2.7 g/dL; Glucose 246 mg/dL (74-99); Non-African American GFR(CKD) 4 (>60 ml/min/1.73 sqM); Sodium 135 mmol/L (137-145); Total Bilirubin 1.2 mg/dL (0.2-1.3); Total Protein 5.3 g/dL (6.3-8.2)
[2023-12-18 11:57] LABS: AST 34 U/L (17-59); Alkaline Phosphatase 107 U/L (38-126); Magnesium 1.8 mg/dL (1.6-2.3); Potassium 4.1 mmol/L (3.5-5.1)
--- NOTE | 2023-12-18 12:05 | P.PN ---
Subjective Patient is seen in follow-up for end-stage renal disease. He is maintained on peritoneal dialysis. Dialysate culture positive for staph epi. Cell count also noted to be high at 3382. Resting in bed. Admits to abdominal discomfort. Vital signs are stable. General: No acute distress. HEENT: Head exam is unremarkable. LUNGS: No audible rhonchi or wheezes. HEART: Rate and Rhythm are regular. ABDOMEN: Generalized tenderness. EXTREMITITES: 1+ edema. Objective - Vital Signs Vital signs: Vital Signs Temp 97.7 F 12/18/23 09:55 Pulse 51 L 12/18/23 09:55 Resp 16 12/18/23 08:00 BP 93/54 12/18/23 09:55 Pulse Ox 97 12/18/23 09:55 FiO2 Intake & Output 12/17/23 12/18/23 12/18/23 18:59 06:59 18:59 Weight 88.451 kg Other: Voiding Method CAPD CAPD # Voids 0 - Labs CBC & Chem 7: 12/18/23 10:33 12/18/23 07:34 Labs: Abnormal Lab Results - Last 24 Hours (Table) 12/18/23 12/18/23 Range/Units 10:05 10:33 WBC 10.8 H (3.8-10.6) k/uL RBC 3.64 L (4.30-5.90) m/uL Hgb 11.0 L (13.0-17.5) gm/dL Hct 33.3 L (39.0-53.0) % Neutrophils # 8.8 H (1.3-7.7) k/uL POC Glucose (mg/dL) 254 H (70-110) mg/dL Microbiology - Last 24 Hours (Table) 12/17/23 02:00 Gram Stain - Preliminary Peritoneal Fluid Body Fluid Culture - Preliminary Staphylococcus epidermidis Assessment and Plan Plan: Assessment: 1. End-stage renal disease maintained on peritoneal dialysis. 2. PD associated peritonitis with dialysate culture positive for staph epi and cell count 3382 with 100% PMNs dated December 17, 2023. 3. 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 4. Hypertension with chronic kidney disease. 5. Colitis maintained on IV antibiotics. Surgery following. Plan: Maintain current PD exchanges. 1 g intraperitoneal vancomycin today. Repeat dialysate cell count and culture in AM. Stop losartan. Hold hydralazine for systolic blood pressure less than 120. Monitor vancomycin levels. Hep-Lock IV fluids.
--- NOTE | 2023-12-18 12:09 | P.PN ---
Subjective Progress Note Date: 12/18/23 CHIEF COMPLAINT: Abdominal pain HISTORY OF PRESENT ILLNESS: Patient continues to complain of diffuse abdominal pain. He does have a peritoneal dialysis catheter. He is on IV antibiotics for peritonitis and colitis. Afebrile. WBC is down from 14-10.8 Hgb 11. Peritoneal fluid with elevated WBC count PHYSICAL EXAM: VITAL SIGNS: Reviewed. GENERAL: Well-developed in no acute distress. ABDOMEN: Soft. Diffuse tenderness. No guarding. No rebound. NEUROLOGIC: Confused ASSESSMENT: 1. Abdominal pain with colitis and peritonitis PLAN: -Continue antibiotics -Continue supportive care -Await further nephrology recommendations -Repeat CBC in AM and follow up on blood culture and fluid culture results Physician Inventory Specialist note has been reviewed by physician. Signing provider agrees with the documented findings, assessment, and plan of care. Attestation Patient seen and examined at bedside. Presented with chief complaint of abdominal pain found to have colitis and concern for peritonitis based on peritoneal fluid collection. He states that his abdominal pain is somewhat improved since arrival. Continue with nephrology recommendations. Currently, no plan for removal of the peritoneal dialysis catheter unless recommended by nephrology. Continue IV antibiotics. Lauren Lundy DO Objective - Vital Signs Vital signs: Vital Signs Temp 97.7 F 12/18/23 09:55 Pulse 51 L 12/18/23 09:55 Resp 16 12/18/23 08:00 BP 93/54 12/18/23 09:55 Pulse Ox 97 12/18/23 09:55 FiO2 Intake & Output 12/17/23 12/18/23 12/18/23 18:59 06:59 18:59 Weight 88.451 kg Other: Voiding Method CAPD CAPD # Voids 0 - Labs CBC & Chem 7: 12/18/23 10:33 12/18/23 10:33 Labs: Abnormal Lab Results - Last 24 Hours (Table) 12/18/23 12/18/23 Range/Units 10:05 10:33 WBC 10.8 H (3.8-10.6) k/uL RBC 3.64 L (4.30-5.90) m/uL Hgb 11.0 L (13.0-17.5) gm/dL Hct 33.3 L (39.0-53.0) % Neutrophils # 8.8 H (1.3-7.7) k/uL POC Glucose (mg/dL) 254 H (70-110) mg/dL Microbiology - Last 24 Hours (Table) 12/17/23 02:00 Gram Stain - Preliminary Peritoneal Fluid Body Fluid Culture - Preliminary Staphylococcus epidermidis
[2023-12-18] MEDS ORDERED: DEXTROSE 50% SYRINGE 50 ML IVP PRN ×2 (12:25)
[2023-12-18] MEDS ORDERED: VANCOMYCIN 1,000 MG VIAL ONE (12:35)
[2023-12-18] MEDS: VANCOMYCIN INTRAPERIT ONE (12:35)
[2023-12-18] MEDS ORDERED: DIALYSIS DEX INTRAPERIT ONE (12:35)
[2023-12-18 13:14] LABS: Glucose,Whole Blood 251 mg/dL (70-110)
[2023-12-18] MEDS: INSULIN ASPART (NovoLOG) 100 UNIT/ML VIAL SQ SCH (14:43)
[2023-12-18 16:41] LABS: Glucose,Whole Blood 246 mg/dL (70-110)
[2023-12-18] MEDS: DIALYSIS (PERIT 1.5%) 2,500 ML 37.5 G/2,500 ML BAG INTRAPERIT SCH (18:01)
[2023-12-18 21:01] LABS: Glucose,Whole Blood 185 mg/dL (70-110)
[2023-12-19 03:46] LABS: African American GFR (CKD) 5 (>60 ml/min/1.73 sqM); Anion Gap 13 mmol/L; Blood Urea Nitrogen 70 mg/dL (9-20); Calcium 7.8 mg/dL (8.4-10.2); Carbon Dioxide 19 mmol/L (22-30); Chloride 102 mmol/L (98-107); Glucose 152 mg/dL (74-99); Magnesium 1.8 mg/dL (1.6-2.3); Non-African American GFR(CKD) 5 (>60 ml/min/1.73 sqM); Potassium 3.5 mmol/L (3.5-5.1); Sodium 134 mmol/L (137-145)
--- NOTE | 2023-12-19 05:11 | P.PN ---
Subjective Progress Note Date: 12/18/23 This is a pleasant 63 years old male with past medical history of multiple medical problems including diabetes, hypertension, end-stage renal disease on peritoneal dialysis. Patient presents because of abdominal pain, for a few days but he could not specify in the right lower quadrant radiating across his lower abdomen moderate to severe in quality, nonspecific with no relieving or precipitating factors. Patient has good bowel movement as he describes he has no vomiting and could eat hamburger today although there is some loss of appetite. He does not make urine, he denies chest pain. However he was complaining from some dyspnea with no cough. No headache dizziness weakness or numbness He is with no smoking alcohol or illicit drug history He is afebrile, vitals are stable He has evidence of leukocytosis 19K, down to 14K, hemoglobin 10-11 which is close to baseline of 9-10. Liver enzymes not elevated and rest of labs unremarkable Chest x-ray showing possible right lower lobe opacity. CT of the abdomen pelvis without contrast showing mild thickening of the colon suspicious for colitis Blood cultures requested as well as peritoneal fluid catheter as well as suspicion of some infection around the area Patient currently started on Zosyn and IV vancomycin 12/18/2023 Patient is seen and evaluated in follow-up this morning is lethargic although arousable although fatigues easily. Patient is scheduled to undergo dialysis today with nephrology following. Patient's blood sugars have been elevated and uncontrolled and will initiate sliding scale and adjust insulins and add long-ac ting if needed. Patient is afebrile and continues with some shortness of breath and is maintained on oxygen, poor historian and unknown if patient wears oxygen at home. Patient extremely weak as well and will have PT/OT therapy evaluate the patient. Patient continues on IV antibiotics at this time with cultures pending Review of systems: Constitutional: reports of fatigue, no fever, or chills Cardiovascular: No reports of chest pain or palpitations Respiratory: reports of shortness of breath GI: No reports of nausea, vomiting, or diarrhea, reports not much of an appetite : No reports of dysuria or retention, does not make urine Neurovascular: reports of weakness All medications have been reviewed Physical exam: GENERAL: The patient is asleep and lethargic although arousable, alert and oriented x2. Well developed, well nourished. Obese HEENT: Pupils are round and equally reacting to light. EOMI. No scleral icterus. No conjunctival pallor. Normocephalic, atraumatic. No pharyngeal erythema. No thyromegaly. CARDIOVASCULAR: S1 and S2 muffled PULMONARY: Diminished breath sounds bilaterally no wheezing , faint crackles noted. ABDOMEN: Soft, right lower quadrant tenderness, nondistended, normoactive bowel sounds. No palpable organomegaly. MUSCULOSKELETAL: No joint swelling or deformity. EXTREMITIES: No cyanosis, clubbing, or pedal edema. NEUROLOGICAL: Gross neurological examination did not reveal any focal deficits. Diffusely weak SKIN: No rashes. no petechiae. Assessment: Abdominal pain secondary to colitis Right lower lobe pneumonia End-stage renal disease on peritoneal dialysis Diabetes mellitus, type II, uncontrolled with hyperglycemia Bilateral leg edema Hypertension History of GERD History of bleeding ulcer Obesity with a BMI 30.5 GI prophylaxis DVT prophylaxis Full code Plan: Continue with IV vancomycin and Zosyn Follow-up blood culture Follow peritoneal fluid culture, culture pending thus far Continue with pain management although recommend to hold narcotics and sedative agents as patient is lethargic Wean FiO2 as tolerated. Encouraged patient to sit up out of the bed more often Continue with GI and DVT prophylaxis Recommend PT/OT therapy evaluation Prognosis is guarded The impression and plan of care has been dictated by Liset Shipman, Nurse Practitioner as directed. Dr. Varsha MD I have performed a history and examination and MDM of this patient, discussed the same with the dictator, and agree with the dictator's assessment and plan as written ,documented as a scribe. Based on total visit time, I have performed more than 50% of the visit. Objective - Vital Signs Vital signs: Vital Signs Temp 97.3 F L 12/18/23 07:20 Pulse 50 L 12/18/23 07:20 Resp 16 12/18/23 07:20 BP 103/70 12/18/23 07:20 Pulse Ox 100 12/18/23 07:20 FiO2 Intake & Output 12/17/23 12/18/23 12/18/23 18:59 06:59 18:59 Weight 88.451 kg Other: Voiding Method CAPD # Voids 0 - Labs CBC & Chem 7: 12/18/23 10:33 12/19/23 03:01 Labs: Microbiology - Last 24 Hours (Table) 12/17/23 02:00 Gram Stain - Preliminary Peritoneal Fluid
[2023-12-19 06:48] LABS: Glucose,Whole Blood 162 mg/dL (70-110)
--- NOTE | 2023-12-19 11:01 | P.PN ---
Subjective Patient is seen in follow-up for end-stage renal disease. He is maintained on peritoneal dialysis. Dialysate culture positive for staph epi. Cell count also noted to be high at 3382 dated December 17, 2023. Resting in bed. Vital signs are stable. General: No acute distress. HEENT: Head exam is unremarkable. LUNGS: No audible rhonchi or wheezes. HEART: Rate and Rhythm are regular. ABDOMEN: Generalized tenderness. EXTREMITITES: Trace edema. Objective - Vital Signs Vital signs: Vital Signs Temp 97.6 F 12/19/23 07:55 Pulse 49 L 12/19/23 07:55 Resp 15 12/19/23 07:55 BP 105/62 12/19/23 07:55 Pulse Ox 94 L 12/19/23 07:55 FiO2 Intake & Output 12/18/23 12/19/23 12/19/23 18:59 06:59 18:59 Intake Total 300 Balance 300 Intake: Intake, IV Titration 300 Amount Sodium Chloride 0.9% 1, 300 000 ml @ 75 mls/hr IV . [id number] [facility] Rx#:[id number] Other: Voiding Method CAPD CAPD # Voids 0 - Labs CBC & Chem 7: 12/18/23 10:33 12/19/23 03:01 Labs: Abnormal Lab Results - Last 24 Hours (Table) 12/18/23 12/18/23 12/18/23 Range/Units 10:33 10:33 10:33 WBC 10.8 H (3.8-10.6) k/uL RBC 3.64 L (4.30-5.90) m/uL Hgb 11.0 L (13.0-17.5) gm/dL Hct 33.3 L (39.0-53.0) % Neutrophils # 8.8 H (1.3-7.7) k/uL Sodium 135 L (137-145) mmol/L Carbon Dioxide 19 L (22-30) mmol/L BUN 74 H (9-20) mg/dL Creatinine 10.69 H* (0.66-1.25) mg/dL Glucose 246 H (74-99) mg/dL POC Glucose (mg/dL) (70-110) mg/dL Hemoglobin A1c 7.4 H (<=6.0) % Calcium 7.8 L (8.4-10.2) mg/dL Total Protein 5.3 L (6.3-8.2) g/dL Albumin 2.6 L (3.5-5.0) g/dL 12/18/23 12/18/23 12/18/23 Range/Units 13:13 16:39 20:59 WBC (3.8-10.6) k/uL RBC (4.30-5.90) m/uL Hgb (13.0-17.5) gm/dL Hct (39.0-53.0) % Neutrophils # (1.3-7.7) k/uL Sodium (137-145) mmol/L Carbon Dioxide (22-30) mmol/L BUN (9-20) mg/dL Creatinine (0.66-1.25) mg/dL Glucose (74-99) mg/dL POC Glucose (mg/dL) 251 H 246 H 185 H (70-110) mg/dL Hemoglobin A1c (<=6.0) % Calcium (8.4-10.2) mg/dL Total Protein (6.3-8.2) g/dL Albumin (3.5-5.0) g/dL 12/19/23 12/19/23 Range/Units 03:01 06:45 WBC (3.8-10.6) k/uL RBC (4.30-5.90) m/uL Hgb (13.0-17.5) gm/dL Hct (39.0-53.0) % Neutrophils # (1.3-7.7) k/uL Sodium 134 L (137-145) mmol/L Carbon Dioxide 19 L (22-30) mmol/L BUN 70 H (9-20) mg/dL Creatinine 10.54 H* (0.66-1.25) mg/dL Glucose 152 H (74-99) mg/dL POC Glucose (mg/dL) 162 H (70-110) mg/dL Hemoglobin A1c (<=6.0) % Calcium 7.8 L (8.4-10.2) mg/dL Total Protein (6.3-8.2) g/dL Albumin (3.5-5.0) g/dL Microbiology - Last 24 Hours (Table) 12/17/23 02:00 Gram Stain - Final Peritoneal Fluid Body Fluid Culture - Final Staphylococcus epidermidis 12/16/23 21:54 Blood Culture - Preliminary Blood Assessment and Plan Plan: Assessment: 1. End-stage renal disease maintained on peritoneal dialysis. 2. PD associated peritonitis with dialysate culture positive for staph epi and cell count 3382 with 100% PMNs dated December 17, 2023. 3. 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 4. Hypertension with chronic kidney disease. Controlled. 5. Colitis maintained on IV antibiotics. Surgery following. Plan: Maintain current PD exchanges. 1 g intraperitoneal vancomycin given December 18, 2023. Repeat dialysate cell count and culture in AM pending. Hold hydralazine for systolic blood pressure less than 120. Monitor vancomycin levels. Patient may need to go to subacute rehab. Will transition to temporary hemodialysis while at rehab.
[2023-12-19 11:54] LABS: Glucose,Whole Blood 187 mg/dL (70-110)
[2023-12-19] MEDS: POTASSIUM CHLORIDE ER 20 MEQ TAB.ER PO STA (12:15)
--- NOTE | 2023-12-19 12:51 | P.PN ---
Subjective Progress Note Date: 12/19/23 CHIEF COMPLAINT: Abdominal pain HISTORY OF PRESENT ILLNESS: Patient continues to complain of diffuse abdominal pain. Patient denies any nausea or vomiting. He has decreased appetite. But reports he does not like the food here. No bowel movements reported. He does have a peritoneal dialysis catheter. He is on IV antibiotics for peritonitis and colitis. Afebrile. No repeat CBC done. Body fluid cultures reports staff epidermidis PHYSICAL EXAM: VITAL SIGNS: Reviewed. GENERAL: in no acute distress. ABDOMEN: Soft. Diffuse tenderness. No guarding. No rebound. PD catheter in place NEUROLOGIC: Confused ASSESSMENT: 1. Abdominal pain with colitis and peritonitis PLAN: -Continue antibiotics -Continue supportive care -Nephrology repeating dialysate cell count and culture -Currently, no plan for removal of the peritoneal dialysis catheter unless recommended by nephrology Physician Music Leader note has been reviewed by physician. Signing provider agrees with the documented findings, assessment, and plan of care. Objective - Vital Signs Vital signs: Vital Signs Temp 97.5 F L 12/19/23 12:05 Pulse 53 L 12/19/23 12:05 Resp 16 12/19/23 12:05 BP 125/77 12/19/23 12:05 Pulse Ox 97 12/19/23 12:05 FiO2 Intake & Output 12/18/23 12/19/23 12/19/23 18:59 06:59 18:59 Intake Total 300 Balance 300 Intake: Intake, IV Titration 300 Amount Sodium Chloride 0.9% 1, 300 000 ml @ 75 mls/hr IV . [id number] [facility] Rx#:[id number] Other: Voiding Method CAPD CAPD # Voids 0 - Labs CBC & Chem 7: 12/18/23 10:33 12/19/23 03:01 Labs: Abnormal Lab Results - Last 24 Hours (Table) 12/18/23 12/18/23 12/18/23 Range/Units 10:33 13:13 16:39 Sodium (137-145) mmol/L Carbon Dioxide (22-30) mmol/L BUN (9-20) mg/dL Creatinine (0.66-1.25) mg/dL Glucose (74-99) mg/dL POC Glucose (mg/dL) 251 H 246 H (70-110) mg/dL Hemoglobin A1c 7.4 H (<=6.0) % Calcium (8.4-10.2) mg/dL 10/21/24 10/22/24 10/22/24 Range/Units 20:59 03:01 06:45 Sodium 134 L (137-145) mmol/L Carbon Dioxide 19 L (22-30) mmol/L BUN 70 H (9-20) mg/dL Creatinine 10.54 H* (0.66-1.25) mg/dL Glucose 152 H (74-99) mg/dL POC Glucose (mg/dL) 185 H 162 H (70-110) mg/dL Hemoglobin A1c (<=6.0) % Calcium 7.8 L (8.4-10.2) mg/dL 12/19/23 Range/Units 11:27 Sodium (137-145) mmol/L Carbon Dioxide (22-30) mmol/L BUN (9-20) mg/dL Creatinine (0.66-1.25) mg/dL Glucose (74-99) mg/dL POC Glucose (mg/dL) 187 H (70-110) mg/dL Hemoglobin A1c (<=6.0) % Calcium (8.4-10.2) mg/dL Microbiology - Last 24 Hours (Table) 12/17/23 02:00 Gram Stain - Final Peritoneal Fluid Body Fluid Culture - Final Staphylococcus epidermidis 12/16/23 21:54 Blood Culture - Preliminary Blood Assessment and Plan Assessment: 63 yo male w/ resolving peritonitis will continue to monitor for sbp please reach out if requesting peritoneal dialysis catheter removal Time with Patient: Less than 30
--- NOTE | 2023-12-19 14:17 | P.PN ---
Subjective Progress Note Date: 12/19/23 This is a pleasant 63 years old male with past medical history of multiple medical problems including diabetes, hypertension, end-stage renal disease on peritoneal dialysis. Patient presents because of abdominal pain, for a few days but he could not specify in the right lower quadrant radiating across his lower abdomen moderate to severe in quality, nonspecific with no relieving or precipitating factors. Patient has good bowel movement as he describes he has no vomiting and could eat hamburger today although there is some loss of appetite. He does not make urine, he denies chest pain. However he was complaining from some dyspnea with no cough. No headache dizziness weakness or numbness He is with no smoking alcohol or illicit drug history He is afebrile, vitals are stable He has evidence of leukocytosis 19K, down to 14K, hemoglobin 10-11 which is close to baseline of 9-10. Liver enzymes not elevated and rest of labs unremarkable Chest x-ray showing possible right lower lobe opacity. CT of the abdomen pelvis without contrast showing mild thickening of the colon suspicious for colitis Blood cultures requested as well as peritoneal fluid catheter as well as suspicion of some infection around the area Patient currently started on Zosyn and IV vancomycin 12/18/2023 Patient is seen and evaluated in follow-up this morning is lethargic although arousable although fatigues easily. Patient is scheduled to undergo dialysis today with nephrology following. Patient's blood sugars have been elevated and uncontrolled and will initiate sliding scale and adjust insulins and add long-ac ting if needed. Patient is afebrile and continues with some shortness of breath and is maintained on oxygen, poor historian and unknown if patient wears oxygen at home. Patient extremely weak as well and will have PT/OT therapy evaluate the patient. Patient continues on IV antibiotics at this time with cultures pending 12/19/2023 Patient is seen in follow-up today extremely lethargic although is arousable slightly more awake to converse today although fatigues easily. Patient is receiving peritoneal dialysis with nephrology following closely. Patient to be evaluated by PT/OT therapy and likely will need rehab. Patient does have a fistula noted in the left upper extremity and will need to possibly transition to hemodialysis while at rehab. Case management is following working on dis charge planning. Patient continues on IV antibiotics and cultures previously showing staph epi, likely contaminant with repeat cultures being ordered for a.m. Patient is maintained on antibiotics as well for colitis with general surgery following with no plans of surgical intervention at this time. Patient reports he does not like the food here and is not eating much. Afebrile and will await repeat cultures. Review of systems: Constitutional: reports of fatigue, no fever, or chills Cardiovascular: No reports of chest pain or palpitations Respiratory: reports of shortness of breath GI: No reports of nausea, vomiting, or diarrhea, reports not much of an appetite and does not care for the food here : No reports of dysuria or retention, does not make urine Neurovascular: reports of weakness All medications have been reviewed Physical exam: GENERAL: The patient is asleep and lethargic although arousable, alert and oriented x2. Well developed, well nourished. Obese HEENT: Pupils are round and equally reacting to light. EOMI. No scleral icterus. No conjunctival pallor. Normocephalic, atraumatic. No pharyngeal erythema. No thyromegaly. CARDIOVASCULAR: S1 and S2 muffled PULMONARY: Diminished breath sounds bilaterally no wheezing , faint crackles noted. ABDOMEN: Soft, right lower quadrant tenderness, nondistended, normoactive bowel sounds. No palpable organomegaly. MUSCULOSKELETAL: No joint swelling or deformity. EXTREMITIES: No cyanosis, clubbing, or pedal edema. NEUROLOGICAL: Gross neurological examination did not reveal any focal deficits. Diffusely weak SKIN: No rashes. no petechiae. Assessment: Abdominal pain secondary to colitis Right lower lobe pneumonia End-stage renal disease on peritoneal dialysis Diabetes mellitus, type II, uncontrolled with hyperglycemia Bilateral leg edema Hypertension History of GERD History of bleeding ulcer Obesity with a BMI 30.5 GI prophylaxis DVT prophylaxis Full code Plan: Continue with IV vancomycin and Zosyn Follow-up fluid culture showing staph likely contaminant and awaiting repeat culture for analysis per nephrology Continue with pain management although recommend to hold narcotics and sedative agents as patient is lethargic. Lyrica will be made as scheduled not as needed Wean FiO2 as tolerated. Encouraged patient to sit up out of the bed more often Continue with GI and DVT prophylaxis Recommend PT/OT therapy evaluation and patient may need rehab. Case management is following and will need to transition to hemodialysis while at rehab as there are no ECF's available that do peritoneal dialysis. Patient will also require insurance authorization. Will follow-up with consultations regarding discharge planning. Cultures are pending at this time and will continue to monitor closely Prognosis is guarded The impression and plan of care has been dictated by Liset Shipman, Nurse Practitioner as directed. Dr. Varsha MD I have performed a history and examination and MDM of this patient, discussed the same with the dictator, and agree with the dictator's assessment and plan as written ,documented as a scribe. Based on total visit time, I have performed more than 50% of the visit. Objective - Vital Signs Vital signs: Vital Signs Temp 97.5 F L 12/19/23 12:42 Pulse 53 L 12/19/23 12:42 Resp 16 12/19/23 12:42 BP 125/77 12/19/23 12:42 Pulse Ox 97 12/19/23 12:42 FiO2 Intake & Output 12/18/23 12/19/23 12/19/23 18:59 06:59 18:59 Intake Total 300 Balance 300 Intake: Intake, IV Titration 300 Amount Sodium Chloride 0.9% 1, 300 000 ml @ 75 mls/hr IV . [id number] [facility] Rx#:[id number] Other: Voiding Method CAPD CAPD # Voids 0 - Labs CBC & Chem 7: 12/18/23 10:33 12/19/23 03:01 Labs: Abnormal Lab Results - Last 24 Hours (Table) 12/18/23 12/18/23 12/18/23 Range/Units 10:33 16:39 20:59 Sodium (137-145) mmol/L Carbon Dioxide (22-30) mmol/L BUN (9-20) mg/dL Creatinine (0.66-1.25) mg/dL Glucose (74-99) mg/dL POC Glucose (mg/dL) 246 H 185 H (70-110) mg/dL Hemoglobin A1c 7.4 H (<=6.0) % Calcium (8.4-10.2) mg/dL 12/19/23 12/19/23 12/19/23 Range/Units 03:01 06:45 11:27 Sodium 134 L (137-145) mmol/L Carbon Dioxide 19 L (22-30) mmol/L BUN 70 H (9-20) mg/dL Creatinine 10.54 H* (0.66-1.25) mg/dL Glucose 152 H (74-99) mg/dL POC Glucose (mg/dL) 162 H 187 H (70-110) mg/dL Hemoglobin A1c (<=6.0) % Calcium 7.8 L (8.4-10.2) mg/dL Microbiology - Last 24 Hours (Table) 12/16/23 21:54 Blood Culture - Preliminary Blood 12/17/23 02:00 Gram Stain - Final Peritoneal Fluid Body Fluid Culture - Final Staphylococcus epidermidis
[2023-12-19 16:06] LABS: Appearance,BF Clear (Clear)
[2023-12-19 16:49] LABS: Glucose,Whole Blood 183 mg/dL (70-110)
[2023-12-19] MEDS: PREGABALIN 75 MG CAP PO SCH (20:33)
[2023-12-19 21:09] LABS: Glucose,Whole Blood 217 mg/dL (70-110)
[2023-12-20 04:36] LABS: ALT 14 U/L (4-49); AST 23 U/L (17-59); African American GFR (CKD) 5 (>60 ml/min/1.73 sqM); Albumin 2.5 g/dL (3.5-5.0); Alkaline Phosphatase 140 U/L (38-126); Anion Gap 13 mmol/L; Blood Urea Nitrogen 65 mg/dL (9-20); Calcium 7.9 mg/dL (8.4-10.2); Carbon Dioxide 20 mmol/L (22-30); Chloride 101 mmol/L (98-107); Globulin 2.6 g/dL; Glucose 201 mg/dL (74-99); Magnesium 1.7 mg/dL (1.6-2.3); Non-African American GFR(CKD) 5 (>60 ml/min/1.73 sqM); Potassium 3.1 mmol/L (3.5-5.1); Sodium 134 mmol/L (137-145); Total Bilirubin 1.4 mg/dL (0.2-1.3); Total Protein 5.1 g/dL (6.3-8.2)
[2023-12-20 04:41] LABS: Vancomycin,Random 23.7 ug/mL
[2023-12-20 07:15] LABS: Glucose,Whole Blood 197 mg/dL (70-110)
[2023-12-20 08:45] LABS: HCT 30.5 % (39.6-50.0); HGB 9.9 g/dL (13.0-17.0); MCH 29.1 pg (27.0-32.0); MCHC 32.5 g/dL (32.0-37.0); MCV 89.7 FL (80.0-97.0); Mean Platelet Volume 11.8 FL (9.5-12.2); NRBC Per 100 WBC 0 X 10*3/uL (0.00-0.01); Platelet Count 215 X 10*3/uL (140-440); RDW 13.3 % (11.5-14.5); WBC 12.18 X 10*3/uL (4.50-10.00)
--- NOTE | 2023-12-20 09:42 | XR ---
EXAMINATION TYPE: XR abdomen 2V DATE OF EXAM: 12/20/2023 HISTORY: Pain. Technique: 4 views of the abdomen are submitted. Comparison: None. Findings: There is no convincing evidence of pneumoperitoneum. There is distended small bowel with paucity of air seen within the colon. Findings could reflect ileus distal small bowel obstruction is difficult to exclude. Correlate clinic ally and progress studies are recommended. Intraperitoneal dialysis catheter noted. No sizable air-fluid levels are seen. No mass effects are noted. No renal calcifications are identified. IMPRESSION: 1. Findings could reflect ileus distal small bowel obstruction is difficult to exclude. Correlate cli nically and progress studies are recommended. [facility], , 12/20/2023 9:40 AM
[2023-12-20] MEDS: traMADol 50 MG TAB PO PRN (10:09)
[2023-12-20 11:03] LABS: Basophils # (M) 0.12 X 10*3/uL (0.00-0.10); Eosinophils # (M) 0.12 X 10*3/uL (0.04-0.35); Lymphocytes # (M) 1.22 X 10*3/uL (0.90-5.00); Metamyelocytes % 1 % (0-0); Monocytes # (M) 0.24 X 10*3/uL (0.20-1.00); Neutrophils # (M) 10.23 X 10*3/uL (1.80-7.70); Neutrophils % (M) 84 %; Promyelocytes # (M) 0.12 k/uL (0); Promyelocytes % 1 %; RBC Morphology Normal (Normal)
[2023-12-20 11:23] LABS: Glucose,Whole Blood 206 mg/dL (70-110)
--- NOTE | 2023-12-20 11:35 | P.PN ---
Subjective Patient is seen in follow-up for end-stage renal disease. He is maintained on peritoneal dialysis. Dialysate culture positive for oxacillin resistant staph epi. Cell count noted to be high at 3382 dated December 17, 2023 and improved to 41 after receiving intraperitoneal vancomycin. Resting in bed. Will need to go to rehab upon discharge. Feels weak. Unable to ambulate on his own. Vital signs are stable. General: No acute distress. HEENT: Head exam is unremarkable. LUNGS: No audible rhonchi or wheezes. HEART: Rate and Rhythm are regular. ABDOMEN: Generalized tenderness. EXTREMITITES: 1+ edema. Objective - Vital Signs Vital signs: Vital Signs Temp 99.5 F 12/20/23 08:00 Pulse 57 L 12/20/23 08:06 Resp 16 12/20/23 08:06 BP 124/61 12/20/23 08:00 Pulse Ox 97 12/20/23 08:00 FiO2 Intake & Output 12/19/23 12/20/23 12/20/23 18:59 06:59 18:59 Intake Total 400 0 Output Total 0 Balance 400 0 0 Intake: Intake, IV Titration 400 Amount Piperacillin-Tazobactam 3 100 .375 gm In Sodium Chloride 0.9% 100 ml @ 25 mls/hr IVPB Q12HR [facility] Rx #:[id number] Sodium Chloride 0.9% 1, 300 000 ml @ 75 mls/hr IV . [id number] [facility] Rx#:[id number] Oral 0 Output: Urine 0 Other: Voiding Method CAPD CAPD # Voids 0 - Labs CBC & Chem 7: 12/20/23 03:47 12/20/23 03:47 Labs: Abnormal Lab Results - Last 24 Hours (Table) 12/19/23 12/19/23 12/19/23 Range/Units 11:27 16:42 21:08 WBC (4.50-10.00) X 10*3/uL RBC (4.40-5.60) X 10*6/uL Hgb (13.0-17.0) g/dL Hct (39.6-50.0) % Neutrophils # (Manual) (1.80-7.70) X 10*3/uL Basophils # (Manual) (0.00-0.10) X 10*3/uL Sodium (137-145) mmol/L Potassium (3.5-5.1) mmol/L Carbon Dioxide (22-30) mmol/L BUN (9-20) mg/dL Creatinine (0.66-1.25) mg/dL Glucose (74-99) mg/dL POC Glucose (mg/dL) 187 H 183 H 217 H (70-110) mg/dL Calcium (8.4-10.2) mg/dL Total Bilirubin (0.2-1.3) mg/dL Alkaline Phosphatase (38-126) U/L Total Protein (6.3-8.2) g/dL Albumin (3.5-5.0) g/dL Procalcitonin (0.02-0.50) ng/mL 12/20/23 12/20/23 12/20/23 Range/Units 03:47 03:47 03:47 WBC 12.18 H (4.50-10.00) X 10*3/uL RBC 3.40 L (4.40-5.60) X 10*6/uL Hgb 9.9 L (13.0-17.0) g/dL Hct 30.5 L (39.6-50.0) % Neutrophils # (Manual) 10.23 H (1.80-7.70) X 10*3/uL Basophils # (Manual) 0.12 H (0.00-0.10) X 10*3/uL Sodium 134 L (137-145) mmol/L Potassium 3.1 L (3.5-5.1) mmol/L Carbon Dioxide 20 L (22-30) mmol/L BUN 65 H (9-20) mg/dL Creatinine 10.55 H* (0.66-1.25) mg/dL Glucose 201 H (74-99) mg/dL POC Glucose (mg/dL) (70-110) mg/dL Calcium 7.9 L (8.4-10.2) mg/dL Total Bilirubin 1.4 H (0.2-1.3) mg/dL Alkaline Phosphatase 140 H (38-126) U/L Total Protein 5.1 L (6.3-8.2) g/dL Albumin 2.5 L (3.5-5.0) g/dL Procalcitonin 10.20 H (0.02-0.50) ng/mL 10/23/24 10/23/24 Range/Units 07:14 11:21 WBC (4.50-10.00) X 10*3/uL RBC (4.40-5.60) X 10*6/uL Hgb (13.0-17.0) g/dL Hct (39.6-50.0) % Neutrophils # (Manual) (1.80-7.70) X 10*3/uL Basophils # (Manual) (0.00-0.10) X 10*3/uL Sodium (137-145) mmol/L Potassium (3.5-5.1) mmol/L Carbon Dioxide (22-30) mmol/L BUN (9-20) mg/dL Creatinine (0.66-1.25) mg/dL Glucose (74-99) mg/dL POC Glucose (mg/dL) 197 H 206 H (70-110) mg/dL Calcium (8.4-10.2) mg/dL Total Bilirubin (0.2-1.3) mg/dL Alkaline Phosphatase (38-126) U/L Total Protein (6.3-8.2) g/dL Albumin (3.5-5.0) g/dL Procalcitonin (0.02-0.50) ng/mL Microbiology - Last 24 Hours (Table) 12/19/23 06:00 Gram Stain - Preliminary Peritoneal Fluid Body Fluid Culture - Preliminary 12/16/23 21:54 Blood Culture - Preliminary Blood 12/17/23 02:00 Gram Stain - Final Peritoneal Fluid Body Fluid Culture - Final Staphylococcus epidermidis Assessment and Plan Plan: Assessment: 1. End-stage renal disease maintained on peritoneal dialysis. 2. PD associated peritonitis with dialysate culture positive for staph epi and cell count 3382 with 100% PMNs dated December 17, 2023. Repeat cell count 41 and PMNs 81% dated December 19, 2023. 3. 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 4. Hypertension with chronic kidney disease. Controlled. 5. Colitis maintained on IV antibiotics. Surgery following. 6. Volume overload. Plan: Change PD exchanges to 2.5% dextrose solution. 1 g intraperitoneal vancomycin given December 18, 2023. Repeat dialysate cell count and culture again today. Hold hydralazine for systolic blood pressure less than 120. Monitor vancomycin levels. Patient will be going to subacute rehab upon discharge. Patient will need to change to hemodialysis. Consult vascular surgery for permacath placement. Case discussed with infectious disease. PD catheter will be discontinued. Replace potassium.
[2023-12-20] MEDS: POTASSIUM CHLORIDE ER 20 MEQ TAB.ER PO STA (11:47)
[2023-12-20] MEDS: MAGNESIUM SULFATE-D5W PMX 1 GM in DEXTROSE/WATER 1 100ML.BAG IVPB SCH (11:47)
[2023-12-20] MEDS: DIALYSIS (PERIT 2.5%) 2,500 ML 62.5 G/2,500 ML BAG INTRAPERIT SCH (12:26)
--- NOTE | 2023-12-20 13:41 | P.PN ---
Subjective Progress Note Date: 12/20/23 CHIEF COMPLAINT: Abdominal pain HISTORY OF PRESENT ILLNESS: Patient currently denies any abdominal pain. Denies any nausea or vomiting. No bowel movements reported. He did have peritoneal dialysis last night. Patient appears more distended today. Afebrile. WBC is up from 10-12.18 Hgb is down from 11-9.9 platelets 215 sodium 134 potassium 3.1. Repeat peritoneal fluid had decrease in WBCs after antibiotics given. PHYSICAL EXAM: VITAL SIGNS: Reviewed. GENERAL: in no acute distress. ABDOMEN: Soft. Nontender. Mildly distended. PD catheter in place. NEUROLOGIC: Confused ASSESSMENT: 1. Abdominal pain now improved. Possible colitis and peritonitis 2. Abdominal distention likely due to an ileus PLAN: -Abdominal x-ray ordered for abdominal distention. Findings could reflect ileus, distal small bowel obstruction is difficult to exclude correlate clinically -Add colace -Continue antibiotics -Continue supportive care -[facility] surgical service will sign off. Patient will be having PD catheter removal with Dr. Isidro. Physician Relief Mate note has been reviewed by physician. Signing provider agrees with the documented findings, assessment, and plan of care. Objective - Vital Signs Vital signs: Vital Signs Temp 97.5 F L 12/20/23 12:47 Pulse 49 L 12/20/23 12:47 Resp 16 12/20/23 12:47 BP 109/58 12/20/23 12:47 Pulse Ox 98 12/20/23 12:47 FiO2 Intake & Output 12/19/23 12/20/23 12/20/23 18:59 06:59 18:59 Intake Total 400 0 Output Total 0 Balance 400 0 0 Intake: Intake, IV Titration 400 Amount Piperacillin-Tazobactam 3 100 .375 gm In Sodium Chloride 0.9% 100 ml @ 25 mls/hr IVPB Q12HR [facility] Rx #:[id number] Sodium Chloride 0.9% 1, 300 000 ml @ 75 mls/hr IV . [id number] [facility] Rx#:[id number] Oral 0 Output: Urine 0 Other: Voiding Method CAPD CAPD # Voids 0 - Labs CBC & Chem 7: 12/20/23 03:47 12/20/23 03:47 Labs: Abnormal Lab Results - Last 24 Hours (Table) 10/22/24 10/22/24 10/23/24 Range/Units 16:42 21:08 03:47 WBC (4.50-10.00) X 10*3/uL RBC (4.40-5.60) X 10*6/uL Hgb (13.0-17.0) g/dL Hct (39.6-50.0) % Neutrophils # (Manual) (1.80-7.70) X 10*3/uL Basophils # (Manual) (0.00-0.10) X 10*3/uL Sodium (137-145) mmol/L Potassium (3.5-5.1) mmol/L Carbon Dioxide (22-30) mmol/L BUN (9-20) mg/dL Creatinine (0.66-1.25) mg/dL Glucose (74-99) mg/dL POC Glucose (mg/dL) 183 H 217 H (70-110) mg/dL Calcium (8.4-10.2) mg/dL Total Bilirubin (0.2-1.3) mg/dL Alkaline Phosphatase (38-126) U/L Total Protein (6.3-8.2) g/dL Albumin (3.5-5.0) g/dL Procalcitonin 10.20 H (0.02-0.50) ng/mL 12/20/23 12/20/23 12/20/23 Range/Units 03:47 03:47 07:14 WBC 12.18 H (4.50-10.00) X 10*3/uL RBC 3.40 L (4.40-5.60) X 10*6/uL Hgb 9.9 L (13.0-17.0) g/dL Hct 30.5 L (39.6-50.0) % Neutrophils # (Manual) 10.23 H (1.80-7.70) X 10*3/uL Basophils # (Manual) 0.12 H (0.00-0.10) X 10*3/uL Sodium 134 L (137-145) mmol/L Potassium 3.1 L (3.5-5.1) mmol/L Carbon Dioxide 20 L (22-30) mmol/L BUN 65 H (9-20) mg/dL Creatinine 10.55 H* (0.66-1.25) mg/dL Glucose 201 H (74-99) mg/dL POC Glucose (mg/dL) 197 H (70-110) mg/dL Calcium 7.9 L (8.4-10.2) mg/dL Total Bilirubin 1.4 H (0.2-1.3) mg/dL Alkaline Phosphatase 140 H (38-126) U/L Total Protein 5.1 L (6.3-8.2) g/dL Albumin 2.5 L (3.5-5.0) g/dL Procalcitonin (0.02-0.50) ng/mL 12/20/23 Range/Units 11:21 WBC (4.50-10.00) X 10*3/uL RBC (4.40-5.60) X 10*6/uL Hgb (13.0-17.0) g/dL Hct (39.6-50.0) % Neutrophils # (Manual) (1.80-7.70) X 10*3/uL Basophils # (Manual) (0.00-0.10) X 10*3/uL Sodium (137-145) mmol/L Potassium (3.5-5.1) mmol/L Carbon Dioxide (22-30) mmol/L BUN (9-20) mg/dL Creatinine (0.66-1.25) mg/dL Glucose (74-99) mg/dL POC Glucose (mg/dL) 206 H (70-110) mg/dL Calcium (8.4-10.2) mg/dL Total Bilirubin (0.2-1.3) mg/dL Alkaline Phosphatase (38-126) U/L Total Protein (6.3-8.2) g/dL Albumin (3.5-5.0) g/dL Procalcitonin (0.02-0.50) ng/mL Microbiology - Last 24 Hours (Table) 12/16/23 21:54 Blood Culture - Preliminary Blood 12/19/23 06:00 Gram Stain - Preliminary Peritoneal Fluid Body Fluid Culture - Preliminary 12/17/23 02:00 Gram Stain - Final Peritoneal Fluid Body Fluid Culture - Final Staphylococcus epidermidis
--- NOTE | 2023-12-20 13:53 | P.GSCN ---
History of Present Illness Consult date: 12/20/23 History of present illness: CHIEF COMPLAINT: Abdominal pain HISTORY OF PRESENT ILLNESS: This is a 63-year-old male who presented to the emergency room with complaints of abdominal pain. He has history of end-stage renal disease on peritoneal dialysis. PD catheter was placed on May 22, [address] Isidro. Patient had CT scan abdomen pelvis completed had reported mild wall thickening of the colon and correlate for colitis. Patient had been placed on antibiotics. He is also being treated for PD catheter associated peritonitis. His dialysate was cultured and was positive for staph epi and did initially have an elevated white count in the 3000's. Repeat WBC was down to 41. He is followed by nephrology they have been giving him antibiotics. Patient is going to require placement at rehab and is being switched over to hemodialysis. Nephrology requesting the PD catheter be removed. PAST MEDICAL HISTORY: See below PAST SURGICAL HISTORY: See below MEDICATIONS: See below ALLERGIES: See below SOCIAL HISTORY: No illicit drug use. REVIEW OF SYSTEMS: CONSTITUTIONAL: Denies fever or chills. HEENT: Denies blurred vision, vision changes, or eye pain. Denies hemoptysis CARDIOVASCULAR: Denies chest pain or pressure. RESPIRATORY: No shortness of breath. GASTROINTESTINAL: See HPI for pertinent findings HEMATOLOGIC: Denies bleeding disorders. GENITOURINARY: Denies any blood in urine or increased urinary frequency. SKIN: Denies pruitis. Denies rash. PHYSICAL EXAM: VITAL SIGNS: Reviewed GENERAL: Well-developed in no acute distress. HEENT: No sclera icterus. Extraocular movements grossly intact. Moist buccal mucosa. Head is atraumatic, normocephalic. No nasal drainage. ABDOMEN: Soft. Mildly distended. Nontender. No guarding or rebound noted. PD catheter site clean dry and intact. NEUROLOGIC: Mildly confused. LABORATORY DATA: WBC on admission 19 had gone down to 10.8 and today is up at 12.18 Hgb is 9.9 platelets 215 Sodium 134 potassium 3.1 creatinine 2.55 magnesium 1.7 IMAGING: Abdominal x-ray reports findings could reflect ileus. distal small bowel obstruction is difficult to exclude. CT scan abdomen pelvis as stated above ASSESSMENT: 1. PD catheter associated peritonitis 2. Possible colitis 3. Abdominal ileus 4. End-stage renal disease 5. Hypokalemia PLAN: -Patient scheduled for PD catheter removal tomorrow with Dr. Isidro -[id number] after midnight -Nephrology replaced potassium -Continue antibiotics -Repeat labs in a.m. -Colace added for constipation and ileus Physician Cap Blocker note has been reviewed by physician. Signing provider agrees with the documented findings, assessment, and plan of care. I have personally seen and examined the patient, reviewed the AQUAT[employer]STRU[employer] /PAs history, exam and MDM and agree with the assessment and plan as written. Based on total visit time, I have performed more than 50% of the visit. As above: We were consulted today by nephrology to proceed with dialysis michael ter removal. Patient with catheter associated peritonitis. Will proceed with catheter removal tomorrow. Risks of bleeding, persistent infection, possible need for further intervention discussed. He understands and wishes to proceed. Past Medical History Past Medical History: Diabetes Mellitus, GERD/Reflux, Hypertension, Pneumonia, Renal Disease Additional Past Medical History / Comment(s): End stage renal disease currently on hemodialysis, diabetes mellitus, hypertension, acid reflux and recent hospitalization for right lung pneumonia and parapneumonic effusion. [place] 2022 [place] [facility] [place] 10 units of blood approx per pt. Left arm dialysis shunt occluded per pt History of Any Multi-Drug Resistant Organisms: None Reported Past Surgical History: Hernia Repair Additional Past Surgical History / Comment(s): umb hernia repair/mesh, rt upper chest dialysis cath, multiple large volume paracentesis procedures, upper GI laser for bleeding ulcer Feb 2022 Past Anesthesia/Blood Transfusion Reactions: No Reported Reaction Additional Past Anesthesia/Blood Transfusion Reaction / Comm: clausterphobia, multiple blood trasfusion - no reaction Feb 2022 Past Psychological History: No Psychological Hx Reported Smoking Status: Former smoker Past Alcohol Use History: None Reported Past Drug Use History: None Reported - Past Family History Mother Family Medical History: No Reported History Additional Family Medical History / Comment(s): . Father Family Medical History: Diabetes Mellitus, Liver Disease, Renal Disease Additional Family Medical History / Comment(s): kidney/liver failure Medications and Allergies Home Medications Medication Instructions Recorded Confirmed Type Cinacalcet [Sensipar] 30 mg PO DAILY 12/16/23 12/16/23 History Loratadine [Claritin] 10 mg PO DAILY 12/16/23 12/16/23 History Losartan [Cozaar] 50 mg PO DAILY 12/16/23 12/16/23 History Pregabalin [Lyrica] 75 mg PO BID PRN 12/16/23 12/16/23 History Sevelamer [Renvela] 1,600 mg PO BID 12/16/23 12/16/23 History Sodium Bicarbonate Tab 650 mg PO DAILY 12/16/23 12/16/23 History Sucroferric Oxyhydroxide [Velphoro] 1,500 mg PO TID-W/MEALS 12/16/23 12/16/23 History Torsemide [Soaanz] 40 mg PO DAILY 12/16/23 12/16/23 History Vit B Complx C/Folic Acid/Zinc 1 tab PO DAILY 12/16/23 12/16/23 History [Renaplex Tablet] calcitrioL [Rocaltrol] 0.25 mcg PO MOWEFR 12/16/23 12/16/23 History carvediloL [Coreg] 6.25 mg PO BID 12/16/23 12/16/23 History hydrALAZINE HCL [Apresoline] 100 mg PO TID 12/16/23 12/16/23 History Allergies Allergy/AdvReac Type Severity Reaction Status Date / Time diphenhydramine Allergy Itching Verified 12/16/23 19:50 [From Benadryl] gabapentin [From Neurontin] Allergy Unknown Verified 12/16/23 19:50 Surgical - Exam Vital Signs Temp Pulse Resp BP Pulse Ox 98.5 F 71 18 130/77 94 L 12/16/23 16:28 12/16/23 16:28 12/16/23 16:28 12/16/23 16:28 12/16/23 16:28 Results - Labs 12/20/23 03:47 12/20/23 03:47 Abnormal Lab Results - Last 24 Hours (Table) 12/19/23 12/19/23 12/20/23 Range/Units 16:42 21:08 03:47 WBC (4.50-10.00) X 10*3/uL RBC (4.40-5.60) X 10*6/uL Hgb (13.0-17.0) g/dL Hct (39.6-50.0) % Neutrophils # (Manual) (1.80-7.70) X 10*3/uL Basophils # (Manual) (0.00-0.10) X 10*3/uL Sodium (137-145) mmol/L Potassium (3.5-5.1) mmol/L Carbon Dioxide (22-30) mmol/L BUN (9-20) mg/dL Creatinine (0.66-1.25) mg/dL Glucose (74-99) mg/dL POC Glucose (mg/dL) 183 H 217 H (70-110) mg/dL Calcium (8.4-10.2) mg/dL Total Bilirubin (0.2-1.3) mg/dL Alkaline Phosphatase (38-126) U/L Total Protein (6.3-8.2) g/dL Albumin (3.5-5.0) g/dL Procalcitonin 10.20 H (0.02-0.50) ng/mL 12/20/23 12/20/23 12/20/23 Range/Units 03:47 03:47 07:14 WBC 12.18 H (4.50-10.00) X 10*3/uL RBC 3.40 L (4.40-5.60) X 10*6/uL Hgb 9.9 L (13.0-17.0) g/dL Hct 30.5 L (39.6-50.0) % Neutrophils # (Manual) 10.23 H (1.80-7.70) X 10*3/uL Basophils # (Manual) 0.12 H (0.00-0.10) X 10*3/uL Sodium 134 L (137-145) mmol/L Potassium 3.1 L (3.5-5.1) mmol/L Carbon Dioxide 20 L (22-30) mmol/L BUN 65 H (9-20) mg/dL Creatinine 10.55 H* (0.66-1.25) mg/dL Glucose 201 H (74-99) mg/dL POC Glucose (mg/dL) 197 H (70-110) mg/dL Calcium 7.9 L (8.4-10.2) mg/dL Total Bilirubin 1.4 H (0.2-1.3) mg/dL Alkaline Phosphatase 140 H (38-126) U/L Total Protein 5.1 L (6.3-8.2) g/dL Albumin 2.5 L (3.5-5.0) g/dL Procalcitonin (0.02-0.50) ng/mL 12/20/23 Range/Units 11:21 WBC (4.50-10.00) X 10*3/uL RBC (4.40-5.60) X 10*6/uL Hgb (13.0-17.0) g/dL Hct (39.6-50.0) % Neutrophils # (Manual) (1.80-7.70) X 10*3/uL Basophils # (Manual) (0.00-0.10) X 10*3/uL Sodium (137-145) mmol/L Potassium (3.5-5.1) mmol/L Carbon Dioxide (22-30) mmol/L BUN (9-20) mg/dL Creatinine (0.66-1.25) mg/dL Glucose (74-99) mg/dL POC Glucose (mg/dL) 206 H (70-110) mg/dL Calcium (8.4-10.2) mg/dL Total Bilirubin (0.2-1.3) mg/dL Alkaline Phosphatase (38-126) U/L Total Protein (6.3-8.2) g/dL Albumin (3.5-5.0) g/dL Procalcitonin (0.02-0.50) ng/mL Microbiology - Last 24 Hours (Table) 12/16/23 21:54 Blood Culture - Preliminary Blood 12/19/23 06:00 Gram Stain - Preliminary Peritoneal Fluid Body Fluid Culture - Preliminary 12/17/23 02:00 Gram Stain - Final Peritoneal Fluid Body Fluid Culture - Final Staphylococcus epidermidis Diabetes panel 12/20/23 Range/Units 03:47 Sodium 134 L (137-145) mmol/L Potassium 3.1 L (3.5-5.1) mmol/L Chloride 101 (98-107) mmol/L Carbon Dioxide 20 L (22-30) mmol/L BUN 65 H (9-20) mg/dL Creatinine 10.55 H* (0.66-1.25) mg/dL Glucose 201 H (74-99) mg/dL Calcium 7.9 L (8.4-10.2) mg/dL AST 23 (17-59) U/L ALT 14 (4-49) U/L Alkaline Phosphatase 140 H (38-126) U/L Total Protein 5.1 L (6.3-8.2) g/dL Albumin 2.5 L (3.5-5.0) g/dL Calcium panel 12/20/23 Range/Units 03:47 Calcium 7.9 L (8.4-10.2) mg/dL Albumin 2.5 L (3.5-5.0) g/dL Pituitary panel 12/20/23 Range/Units 03:47 Sodium 134 L (137-145) mmol/L Potassium 3.1 L (3.5-5.1) mmol/L Chloride 101 (98-107) mmol/L Carbon Dioxide 20 L (22-30) mmol/L BUN 65 H (9-20) mg/dL Creatinine 10.55 H* (0.66-1.25) mg/dL Glucose 201 H (74-99) mg/dL Calcium 7.9 L (8.4-10.2) mg/dL Adrenal panel 12/20/23 Range/Units 03:47 Sodium 134 L (137-145) mmol/L Potassium 3.1 L (3.5-5.1) mmol/L Chloride 101 (98-107) mmol/L Carbon Dioxide 20 L (22-30) mmol/L BUN 65 H (9-20) mg/dL Creatinine 10.55 H* (0.66-1.25) mg/dL Glucose 201 H (74-99) mg/dL Calcium 7.9 L (8.4-10.2) mg/dL Total Bilirubin 1.4 H (0.2-1.3) mg/dL AST 23 (17-59) U/L ALT 14 (4-49) U/L Alkaline Phosphatase 140 H (38-126) U/L Total Protein 5.1 L (6.3-8.2) g/dL Albumin 2.5 L (3.5-5.0) g/dL
--- NOTE | 2023-12-20 14:09 | P.GSCN ---
History of Present Illness Consult date: 12/20/23 Reason for Consult: Permacath placement Requesting physician: Luciano De Anda History of present illness: This is a pleasant 63-year-old male with a history of end-stage renal disease who is currently on peritoneal dialysis. Patient was admitted with concerns of abdominal pain. He had a CT abdomen pelvis showing possible colitis, he is been following with nephrology and been treated for peritonitis. Patient apparently is going to be transition to extended care facility and will need hemodialysis tunneled catheter placed. Plan is for peritoneal dialysis catheter to be removed by Dr. Kasper tomorrow. Vascular surgery consulted for permacath placement. Patient currently denies any shortness of breath, chest pain, abdominal pain, nausea or vomiting. Review of Systems A 14 point review systems was completed all pertinent positives and negatives as stated in the HPI. Past Medical History Past Medical History: Diabetes Mellitus, GERD/Reflux, Hypertension, Pneumonia, Renal Disease Additional Past Medical History / Comment(s): End stage renal disease currently on hemodialysis, diabetes mellitus, hypertension, acid reflux and recent hospitalization for right lung pneumonia and parapneumonic effusion. Feb 2022 [place] [facility] [place]received 10 units of blood approx per pt. Left arm dialysis shunt occluded per pt History of Any Multi-Drug Resistant Organisms: None Reported Past Surgical History: Hernia Repair Additional Past Surgical History / Comment(s): umb hernia repair/mesh, rt upper chest dialysis cath, multiple large volume paracentesis procedures, upper GI laser for bleeding ulcer Feb 2022 Past Anesthesia/Blood Transfusion Reactions: No Reported Reaction Additional Past Anesthesia/Blood Transfusion Reaction / Comm: clausterphobia, multiple blood trasfusion - no reaction Feb 2022 Past Psychological History: No Psychological Hx Reported Smoking Status: Former smoker Past Alcohol Use History: None Reported Past Drug Use History: None Reported - Past Family History Mother Family Medical History: No Reported History Additional Family Medical History / Comment(s): . Father Family Medical History: Diabetes Mellitus, Liver Disease, Renal Disease Additional Family Medical History / Comment(s): kidney/liver failure Medications and Allergies Home Medications Medication Instructions Recorded Confirmed Type Cinacalcet [Sensipar] 30 mg PO DAILY 12/16/23 12/16/23 History Loratadine [Claritin] 10 mg PO DAILY 12/16/23 12/16/23 History Losartan [Cozaar] 50 mg PO DAILY 12/16/23 12/16/23 History Pregabalin [Lyrica] 75 mg PO BID PRN 12/16/23 12/16/23 History Sevelamer [Renvela] 1,600 mg PO BID 12/16/23 12/16/23 History Sodium Bicarbonate Tab 650 mg PO DAILY 12/16/23 12/16/23 History Sucroferric Oxyhydroxide [Velphoro] 1,500 mg PO TID-W/MEALS 12/16/23 12/16/23 History Torsemide [Soaanz] 40 mg PO DAILY 12/16/23 12/16/23 History Vit B Complx C/Folic Acid/Zinc 1 tab PO DAILY 12/16/23 12/16/23 History [Renaplex Tablet] calcitrioL [Rocaltrol] 0.25 mcg PO MOWEFR 12/16/23 12/16/23 History carvediloL [Coreg] 6.25 mg PO BID 12/16/23 12/16/23 History hydrALAZINE HCL [Apresoline] 100 mg PO TID 12/16/23 12/16/23 History Allergies Allergy/AdvReac Type Severity Reaction Status Date / Time diphenhydramine Allergy Itching Verified 12/16/23 19:50 [From Benadryl] gabapentin [From Neurontin] Allergy Unknown Verified 12/16/23 19:50 Surgical - Exam Vital Signs Temp Pulse Resp BP Pulse Ox 98.5 F 71 18 130/77 94 L 12/16/23 16:28 12/16/23 16:28 12/16/23 16:28 12/16/23 16:28 12/16/23 16:28 General appearance: The patient is alert, oriented, appears in no acute distress. HET: Head is normocephalic and atraumatic. Pupils are equal and reactive. Neck: Supple. Heart: Regular. Lungs: Equal expansion, normal respiratory effort. Abdomen: Soft, nontender, nondistended. Extremities: Normal skin color and turgor. Neurological: No focal deficits. Strength and sensation are grossly intact. Results - Labs 12/20/23 03:47 12/20/23 03:47 Abnormal Lab Results - Last 24 Hours (Table) 12/19/23 12/19/23 12/20/23 Range/Units 16:42 21:08 03:47 WBC (4.50-10.00) X 10*3/uL RBC (4.40-5.60) X 10*6/uL Hgb (13.0-17.0) g/dL Hct (39.6-50.0) % Neutrophils # (Manual) (1.80-7.70) X 10*3/uL Basophils # (Manual) (0.00-0.10) X 10*3/uL Sodium (137-145) mmol/L Potassium (3.5-5.1) mmol/L Carbon Dioxide (22-30) mmol/L BUN (9-20) mg/dL Creatinine (0.66-1.25) mg/dL Glucose (74-99) mg/dL POC Glucose (mg/dL) 183 H 217 H (70-110) mg/dL Calcium (8.4-10.2) mg/dL Total Bilirubin (0.2-1.3) mg/dL Alkaline Phosphatase (38-126) U/L Total Protein (6.3-8.2) g/dL Albumin (3.5-5.0) g/dL Procalcitonin 10.20 H (0.02-0.50) ng/mL 12/20/23 12/20/23 12/20/23 Range/Units 03:47 03:47 07:14 WBC 12.18 H (4.50-10.00) X 10*3/uL RBC 3.40 L (4.40-5.60) X 10*6/uL Hgb 9.9 L (13.0-17.0) g/dL Hct 30.5 L (39.6-50.0) % Neutrophils # (Manual) 10.23 H (1.80-7.70) X 10*3/uL Basophils # (Manual) 0.12 H (0.00-0.10) X 10*3/uL Sodium 134 L (137-145) mmol/L Potassium 3.1 L (3.5-5.1) mmol/L Carbon Dioxide 20 L (22-30) mmol/L BUN 65 H (9-20) mg/dL Creatinine 10.55 H* (0.66-1.25) mg/dL Glucose 201 H (74-99) mg/dL POC Glucose (mg/dL) 197 H (70-110) mg/dL Calcium 7.9 L (8.4-10.2) mg/dL Total Bilirubin 1.4 H (0.2-1.3) mg/dL Alkaline Phosphatase 140 H (38-126) U/L Total Protein 5.1 L (6.3-8.2) g/dL Albumin 2.5 L (3.5-5.0) g/dL Procalcitonin (0.02-0.50) ng/mL 12/20/23 Range/Units 11:21 WBC (4.50-10.00) X 10*3/uL RBC (4.40-5.60) X 10*6/uL Hgb (13.0-17.0) g/dL Hct (39.6-50.0) % Neutrophils # (Manual) (1.80-7.70) X 10*3/uL Basophils # (Manual) (0.00-0.10) X 10*3/uL Sodium (137-145) mmol/L Potassium (3.5-5.1) mmol/L Carbon Dioxide (22-30) mmol/L BUN (9-20) mg/dL Creatinine (0.66-1.25) mg/dL Glucose (74-99) mg/dL POC Glucose (mg/dL) 206 H (70-110) mg/dL Calcium (8.4-10.2) mg/dL Total Bilirubin (0.2-1.3) mg/dL Alkaline Phosphatase (38-126) U/L Total Protein (6.3-8.2) g/dL Albumin (3.5-5.0) g/dL Procalcitonin (0.02-0.50) ng/mL Microbiology - Last 24 Hours (Table) 12/16/23 21:54 Blood Culture - Preliminary Blood 12/19/23 06:00 Gram Stain - Preliminary Peritoneal Fluid Body Fluid Culture - Preliminary Diabetes panel 12/20/23 Range/Units 03:47 Sodium 134 L (137-145) mmol/L Potassium 3.1 L (3.5-5.1) mmol/L Chloride 101 (98-107) mmol/L Carbon Dioxide 20 L (22-30) mmol/L BUN 65 H (9-20) mg/dL Creatinine 10.55 H* (0.66-1.25) mg/dL Glucose 201 H (74-99) mg/dL Calcium 7.9 L (8.4-10.2) mg/dL AST 23 (17-59) U/L ALT 14 (4-49) U/L Alkaline Phosphatase 140 H (38-126) U/L Total Protein 5.1 L (6.3-8.2) g/dL Albumin 2.5 L (3.5-5.0) g/dL Calcium panel 12/20/23 Range/Units 03:47 Calcium 7.9 L (8.4-10.2) mg/dL Albumin 2.5 L (3.5-5.0) g/dL Pituitary panel 12/20/23 Range/Units 03:47 Sodium 134 L (137-145) mmol/L Potassium 3.1 L (3.5-5.1) mmol/L Chloride 101 (98-107) mmol/L Carbon Dioxide 20 L (22-30) mmol/L BUN 65 H (9-20) mg/dL Creatinine 10.55 H* (0.66-1.25) mg/dL Glucose 201 H (74-99) mg/dL Calcium 7.9 L (8.4-10.2) mg/dL Adrenal panel 12/20/23 Range/Units 03:47 Sodium 134 L (137-145) mmol/L Potassium 3.1 L (3.5-5.1) mmol/L Chloride 101 (98-107) mmol/L Carbon Dioxide 20 L (22-30) mmol/L BUN 65 H (9-20) mg/dL Creatinine 10.55 H* (0.66-1.25) mg/dL Glucose 201 H (74-99) mg/dL Calcium 7.9 L (8.4-10.2) mg/dL Total Bilirubin 1.4 H (0.2-1.3) mg/dL AST 23 (17-59) U/L ALT 14 (4-49) U/L Alkaline Phosphatase 140 H (38-126) U/L Total Protein 5.1 L (6.3-8.2) g/dL Albumin 2.5 L (3.5-5.0) g/dL Assessment and Plan Assessment: 1. End-stage renal disease requiring hemodialysis 2. Peritonitis 3. Transfer to extended care facility requiring hemodialysis Plan: 1. Keep n.p.o. after midnight 2. Patient is scheduled for peritoneal dialysis removal tomorrow 3. Will schedule for tunneled hemodialysis catheter tomorrow 4. Hemodialysis per recommendations from nephrology Thank you for this consultation, we will continue to follow. The impression and plan of care has been dictated as directed. Dr. Cyr I performed a history and examination of this patient, discussed the same with the dictator. I agree with the dictator's note ,documented as a scribe. Any additional findings or plans will be noted.
[2023-12-20] MEDS: DOCUSATE 100 MG CAP PO SCH (14:19)
[2023-12-20 16:17] LABS: Glucose,Whole Blood 224 mg/dL (70-110)
[2023-12-20 21:01] LABS: Glucose,Whole Blood 252 mg/dL (70-110)
[2023-12-21 04:59] LABS: African American GFR (CKD) 5 (>60 ml/min/1.73 sqM); Anion Gap 9 mmol/L; Blood Urea Nitrogen 61 mg/dL (9-20); Calcium 7.5 mg/dL (8.4-10.2); Carbon Dioxide 22 mmol/L (22-30); Chloride 98 mmol/L (98-107); Glucose 219 mg/dL (74-99); Non-African American GFR(CKD) 5 (>60 ml/min/1.73 sqM); Potassium 3.3 mmol/L (3.5-5.1); Sodium 129 mmol/L (137-145)
[2023-12-21 05:01] LABS: HCT 30.1 % (39.0-53.0); MCHC 33.2 g/dL (31.0-37.0); MCV 90.5 fL (80.0-100.0); Mean Platelet Volume 10.8; Platelet Count 192 k/uL (150-450); RBC 3.32 m/uL (4.30-5.90); RDW 13.7 % (11.5-15.5); WBC 9.7 k/uL (3.8-10.6)
[2023-12-21 05:15] LABS: Band Neutrophils % 10 %; Eosinophils # (M) 0.19 k/uL (0-0.7); Lymphocytes # (M) 0.49 k/uL (1.0-4.8); Metamyelocytes # (M) 0.29 k/uL (0); Metamyelocytes % 3 %; Monocytes # (M) 0.97 k/uL (0-1.0); Myelocytes # (M) 0.19 k/uL (0); Myelocytes % 2 %; Neutrophils % (M) 68 %; Nucleated Red Blood Cells 0 /100 WBC (0-0); Total Cells Counted 200
--- NOTE | 2023-12-21 05:21 | P.PN ---
Subjective Progress Note Date: 12/20/23 This is a pleasant 63 years old male with past medical history of multiple medical problems including diabetes, hypertension, end-stage renal disease on peritoneal dialysis. Patient presents because of abdominal pain, for a few days but he could not specify in the right lower quadrant radiating across his lower abdomen moderate to severe in quality, nonspecific with no relieving or precipitating factors. Patient has good bowel movement as he describes he has no vomiting and could eat hamburger today although there is some loss of appetite. He does not make urine, he denies chest pain. However he was complaining from some dyspnea with no cough. No headache dizziness weakness or numbness He is with no smoking alcohol or illicit drug history He is afebrile, vitals are stable He has evidence of leukocytosis 19K, down to 14K, hemoglobin 10-11 which is close to baseline of 9-10. Liver enzymes not elevated and rest of labs unremarkable Chest x-ray showing possible right lower lobe opacity. CT of the abdomen pelvis without contrast showing mild thickening of the colon suspicious for colitis Blood cultures requested as well as peritoneal fluid catheter as well as suspicion of some infection around the area Patient currently started on Zosyn and IV vancomycin 12/18/2023 Patient is seen and evaluated in follow-up this morning is lethargic although arousable although fatigues easily. Patient is scheduled to undergo dialysis today with nephrology following. Patient's blood sugars have been elevated and uncontrolled and will initiate sliding scale and adjust insulins and add long-ac ting if needed. Patient is afebrile and continues with some shortness of breath and is maintained on oxygen, poor historian and unknown if patient wears oxygen at home. Patient extremely weak as well and will have PT/OT therapy evaluate the patient. Patient continues on IV antibiotics at this time with cultures pending 12/19/2023 Patient is seen in follow-up today extremely lethargic although is arousable slightly more awake to converse today although fatigues easily. Patient is receiving peritoneal dialysis with nephrology following closely. Patient to be evaluated by PT/OT therapy and likely will need rehab. Patient does have a fistula noted in the left upper extremity and will need to possibly transition to hemodialysis while at rehab. Case management is following working on dis charge planning. Patient continues on IV antibiotics and cultures previously showing staph epi, likely contaminant with repeat cultures being ordered for a.m. Patient is maintained on antibiotics as well for colitis with general surgery following with no plans of surgical intervention at this time. Patient reports he does not like the food here and is not eating much. Afebrile and will await repeat cultures. 12/20/2023 Patient is seen in follow-up today a little more awake although fatigues easily during conversation. Currently undergoing peritoneal dialysis and maintained on antibiotics and infectious disease has been consulted. Procalcitonin was noted to be 10 and concerns of peritonitis. Plan is to remove abdominal dialysis catheter and vascular surgery was consulted for permacath placement. Patient does have a left arm fistula although nonfunctioning at this time. Patient will need PT/OT therapy updated notes with plans on going to ECF on discharge. Repeat cultures thus far are negative. Review of systems: Constitutional: reports of fatigue, no fever, or chills Cardiovascular: No reports of chest pain or palpitations Respiratory: reports of occasional shortness of breath GI: No reports of nausea, vomiting, or diarrhea, reports not much of an appetite and does not care for the food here : No reports of dysuria or retention, does not make urine Neurovascular: reports of weakness All medications have been reviewed Physical exam: GENERAL: The patient is awake this morning although fatigued and falls asleep during conversation, alert and oriented x2. Well developed, well nourished. Obese HEENT: Pupils are round and equally reacting to light. EOMI. No scleral icterus. No conjunctival pallor. Normocephalic, atraumatic. No pharyngeal erythema. No thyromegaly. CARDIOVASCULAR: S1 and S2 muffled PULMONARY: Diminished breath sounds bilaterally no wheezing , faint crackles noted. ABDOMEN: Soft, right lower quadrant tenderness, nondistended, normoactive bowel sounds. No palpable organomegaly. MUSCULOSKELETAL: No joint swelling or deformity. EXTREMITIES: No cyanosis, clubbing, or pedal edema. NEUROLOGICAL: Gross neurological examination did not reveal any focal deficits. Diffusely weak SKIN: No rashes. no petechiae. Assessment: Abdominal pain secondary to colitis Right lower lobe pneumonia End-stage renal disease on peritoneal dialysis, will be transitioning to hemodialysis and a permacath is being placed by vascular surgery 12/21/2023 Concerns for peritonitis, cultures initially showing oxacillin resistant Staph epidermidis. Repeat cultures are negative thus far. Peritoneal catheter will be removed Diabetes mellitus, type II, uncontrolled with hyperglycemia Bilateral leg edema Hypertension History of GERD History of bleeding ulcer Obesity with a BMI 30.5 GI prophylaxis DVT prophylaxis Full code Plan: Continue with IV vancomycin and Zosyn. Consult infectious disease and appreciate input and recommendations. Recommend peritoneal dialysis catheter to be removed and patient will be transition to hemodialysis with plans for vascular surgery to place a permacath on 12/21/2023. Continue with pain management although recommend to hold narcotics and sedative agents as patient is lethargic. Lyrica will be made as scheduled not as needed Wean FiO2 as tolerated. Encouraged patient to sit up out of the bed more often Continue with GI and DVT prophylaxis Recommend PT/OT therapy evaluation as patient will need rehab. Case management is following and will need to transition to hemodialysis while at rehab as there are no ECF's available that do peritoneal dialysis. Patient will also require insurance authorization. Will follow-up with consultations regarding discharge planning. Prognosis is guarded The impression and plan of care has been dictated by Liset Shipman, Nurse Practitioner as directed. Dr. Varsha MD I have performed a history and examination and MDM of this patient, discussed the same with the dictator, and agree with the dictator's assessment and plan as written ,documented as a scribe. Based on total visit time, I have performed more than 50% of the visit. Objective - Vital Signs Vital signs: Vital Signs Temp 99.5 F 12/20/23 08:00 Pulse 57 L 12/20/23 08:06 Resp 16 12/20/23 08:06 BP 124/61 12/20/23 08:00 Pulse Ox 97 12/20/23 08:00 FiO2 Intake & Output 12/19/23 12/20/23 12/20/23 18:59 06:59 18:59 Intake Total 400 0 Output Total 0 Balance 400 0 0 Intake: Intake, IV Titration 400 Amount Piperacillin-Tazobactam 3 100 .375 gm In Sodium Chloride 0.9% 100 ml @ 25 mls/hr IVPB Q12HR [facility] Rx #:[id number] Sodium Chloride 0.9% 1, 300 000 ml @ 75 mls/hr IV . [id number] [facility] Rx#:[id number] Oral 0 Output: Urine 0 Other: Voiding Method CAPD CAPD # Voids 0 - Labs CBC & Chem 7: 12/21/23 04:09 12/20/23 03:47 Labs: Abnormal Lab Results - Last 24 Hours (Table) 12/19/23 12/19/23 12/19/23 Range/Units 11:27 16:42 21:08 WBC (4.50-10.00) X 10*3/uL RBC (4.40-5.60) X 10*6/uL Hgb (13.0-17.0) g/dL Hct (39.6-50.0) % Sodium (137-145) mmol/L Potassium (3.5-5.1) mmol/L Carbon Dioxide (22-30) mmol/L BUN (9-20) mg/dL Creatinine (0.66-1.25) mg/dL Glucose (74-99) mg/dL POC Glucose (mg/dL) 187 H 183 H 217 H (70-110) mg/dL Calcium (8.4-10.2) mg/dL Total Bilirubin (0.2-1.3) mg/dL Alkaline Phosphatase (38-126) U/L Total Protein (6.3-8.2) g/dL Albumin (3.5-5.0) g/dL Procalcitonin (0.02-0.50) ng/mL 12/20/23 12/20/23 12/20/23 Range/Units 03:47 03:47 03:47 WBC 12.18 H (4.50-10.00) X 10*3/uL RBC 3.40 L (4.40-5.60) X 10*6/uL Hgb 9.9 L (13.0-17.0) g/dL Hct 30.5 L (39.6-50.0) % Sodium 134 L (137-145) mmol/L Potassium 3.1 L (3.5-5.1) mmol/L Carbon Dioxide 20 L (22-30) mmol/L BUN 65 H (9-20) mg/dL Creatinine 10.55 H* (0.66-1.25) mg/dL Glucose 201 H (74-99) mg/dL POC Glucose (mg/dL) (70-110) mg/dL Calcium 7.9 L (8.4-10.2) mg/dL Total Bilirubin 1.4 H (0.2-1.3) mg/dL Alkaline Phosphatase 140 H (38-126) U/L Total Protein 5.1 L (6.3-8.2) g/dL Albumin 2.5 L (3.5-5.0) g/dL Procalcitonin 10.20 H (0.02-0.50) ng/mL 12/20/23 Range/Units 07:14 WBC (4.50-10.00) X 10*3/uL RBC (4.40-5.60) X 10*6/uL Hgb (13.0-17.0) g/dL Hct (39.6-50.0) % Sodium (137-145) mmol/L Potassium (3.5-5.1) mmol/L Carbon Dioxide (22-30) mmol/L BUN (9-20) mg/dL Creatinine (0.66-1.25) mg/dL Glucose (74-99) mg/dL POC Glucose (mg/dL) 197 H (70-110) mg/dL Calcium (8.4-10.2) mg/dL Total Bilirubin (0.2-1.3) mg/dL Alkaline Phosphatase (38-126) U/L Total Protein (6.3-8.2) g/dL Albumin (3.5-5.0) g/dL Procalcitonin (0.02-0.50) ng/mL Microbiology - Last 24 Hours (Table) 12/19/23 06:00 Gram Stain - Preliminary Peritoneal Fluid Body Fluid Culture - Preliminary 12/16/23 21:54 Blood Culture - Preliminary Blood 12/17/23 02:00 Gram Stain - Final Peritoneal Fluid Body Fluid Culture - Final Staphylococcus epidermidis
[2023-12-21 06:53] LABS: Glucose,Whole Blood 232 mg/dL (70-110)
--- NOTE | 2023-12-21 07:29 | P.CONS ---
History of Present Illness - Reason for Consult Consult date: 12/20/23 Peritonitis/colitis Requesting physician: Liset Shipman - Chief Complaint Abdominal pain x few days - History of Present Illness Patient is a 63-year-old male with a past medical history of again for diabetes mellitus that includes hypertension pneumonia end-stage renal disease currently on peritoneal dialysis patient has been brought into the hospital about 6 days ago and the patient was complaining of abdominal pain patient has been diagnosed with a PD catheter associated peritonitis as the patient did have a white count of 3382 on initial peritoneal fluid analysis he did received a dose of IV Vanco subsequently be started on vancomycin through the peritoneal dialysis the peritoneal fluid culture did grew staph epi blood culture has been negative infectious disease was consulted today for further management of antibiotic therapy patient overall not a very good historian patient did not have any fever during this admission currently denies having any headache no chest pain shortness of breath or cough no nausea vomiting abdominal pain or diarrhea patient did have elevated white count of 19,000 on admission that has subsequently normalized to 9.7 he did tested negative for influenza RSV and COVID vancomycin random has been in the 20s and repeat peritoneal fluid analysis shows a white count of 41 Review of Systems Positive point and negatives has been mentioned in the HPI, complete review of systems was performed and all other systems are negative Past Medical History Past Medical History: Diabetes Mellitus, GERD/Reflux, Hypertension, Pneumonia, Renal Disease Additional Past Medical History / Comment(s): End stage renal disease currently on hemodialysis, diabetes mellitus, hypertension, acid reflux and recent hospitalization for right lung pneumonia and parapneumonic effusion. Feb 2022 Admitted to [facility] [place] bleed ulcer-received 10 units of blood approx per pt. Left arm dialysis shunt occluded per pt History of Any Multi-Drug Resistant Organisms: None Reported Past Surgical History: Hernia Repair Additional Past Surgical History / Comment(s): umb hernia repair/mesh, rt upper chest dialysis cath, multiple large volume paracentesis procedures, upper GI laser for bleeding ulcer Feb 2022 Past Anesthesia/Blood Transfusion Reactions: No Reported Reaction Additional Past Anesthesia/Blood Transfusion Reaction / Comm: clausterphobia, multiple blood trasfusion - no reaction Feb 2022 Past Psychological History: No Psychological Hx Reported Smoking Status: Former smoker Past Alcohol Use History: None Reported Past Drug Use History: None Reported - Past Family History Mother Family Medical History: No Reported History Additional Family Medical History / Comment(s): . Father Family Medical History: Diabetes Mellitus, Liver Disease, Renal Disease Additional Family Medical History / Comment(s): kidney/liver failure Medications and Allergies Home Medications Medication Instructions Recorded Confirmed Type Cinacalcet [Sensipar] 30 mg PO DAILY 12/16/23 12/16/23 History Loratadine [Claritin] 10 mg PO DAILY 12/16/23 12/16/23 History Losartan [Cozaar] 50 mg PO DAILY 12/16/23 12/16/23 History Pregabalin [Lyrica] 75 mg PO BID PRN 12/16/23 12/16/23 History Sevelamer [Renvela] 1,600 mg PO BID 12/16/23 12/16/23 History Sodium Bicarbonate Tab 650 mg PO DAILY 12/16/23 12/16/23 History Sucroferric Oxyhydroxide [Velphoro] 1,500 mg PO TID-W/MEALS 12/16/23 12/16/23 History Torsemide [Soaanz] 40 mg PO DAILY 12/16/23 12/16/23 History Vit B Complx C/Folic Acid/Zinc 1 tab PO DAILY 12/16/23 12/16/23 History [Renaplex Tablet] calcitrioL [Rocaltrol] 0.25 mcg PO MOWEFR 12/16/23 12/16/23 History carvediloL [Coreg] 6.25 mg PO BID 12/16/23 12/16/23 History hydrALAZINE HCL [Apresoline] 100 mg PO TID 12/16/23 12/16/23 History Allergies Allergy/AdvReac Type Severity Reaction Status Date / Time diphenhydramine Allergy Itching Verified 12/16/23 19:50 [From Benadryl] gabapentin [From Neurontin] Allergy Unknown Verified 12/16/23 19:50 Physical Exam Vitals: Vital Signs Temp Pulse Pulse Resp BP BP Pulse Ox 12/20/23 08:06 57 L 16 12/20/23 08:00 99.5 F 57 L 16 124/61 97 12/20/23 06:00 55 L 113/55 95 12/20/23 02:00 97.5 F L 55 L 109/52 98 12/20/23 00:00 54 L 18 109/47 96 12/19/23 18:14 98.2 F 56 L 16 100 12/19/23 12:42 97.5 F L 53 L 16 125/77 97 12/19/23 12:05 97.5 F L 53 L 16 125/77 97 Intake and Output 12/19/23 12/20/23 12/20/23 22:59 06:59 14:59 Intake Total 100 0 Output Total 0 Balance 100 0 0 Intake: Intake, IV Titration 100 Amount Piperacillin-Tazobactam 3 100 .375 gm In Sodium Chloride 0.9% 100 ml @ 25 mls/hr IVPB Q12HR [facility] Rx #:[id number] Oral 0 Output: Urine 0 Other: Voiding Method CAPD CAPD # Voids 0 GENERAL DESCRIPTION: Elderly male lying in bed, no distress. No tachypnea or accessory muscle of respiration use. HEENT: Shows Pallor , no scleral icterus. Oral mucous membrane is dry. NECK: Trachea central, no thyromegaly. LUNGS: Unlabored breathing. Clear to auscultation anteriorly. No wheeze or crackle. HEART: S1, S2, regular rate and rhythm. No loud murmur ABDOMEN: Soft, no tenderness , EXTREMITIES: No edema of feet. SKIN: No rash, no masses palpable. NEUROLOGICAL: The patient is awake, mood and affect normal. Results CBC & Chem 7: 12/21/23 04:09 12/21/23 04:09 Labs: Abnormal Lab Results - Last 24 Hours (Table) 12/19/23 12/19/23 12/19/23 Range/Units 11:27 16:42 21:08 WBC (4.50-10.00) X 10*3/uL RBC (4.40-5.60) X 10*6/uL Hgb (13.0-17.0) g/dL Hct (39.6-50.0) % Sodium (137-145) mmol/L Potassium (3.5-5.1) mmol/L Carbon Dioxide (22-30) mmol/L BUN (9-20) mg/dL Creatinine (0.66-1.25) mg/dL Glucose (74-99) mg/dL POC Glucose (mg/dL) 187 H 183 H 217 H (70-110) mg/dL Calcium (8.4-10.2) mg/dL Total Bilirubin (0.2-1.3) mg/dL Alkaline Phosphatase (38-126) U/L Total Protein (6.3-8.2) g/dL Albumin (3.5-5.0) g/dL Procalcitonin (0.02-0.50) ng/mL 12/20/23 12/20/23 12/20/23 Range/Units 03:47 03:47 03:47 WBC 12.18 H (4.50-10.00) X 10*3/uL RBC 3.40 L (4.40-5.60) X 10*6/uL Hgb 9.9 L (13.0-17.0) g/dL Hct 30.5 L (39.6-50.0) % Sodium 134 L (137-145) mmol/L Potassium 3.1 L (3.5-5.1) mmol/L Carbon Dioxide 20 L (22-30) mmol/L BUN 65 H (9-20) mg/dL Creatinine 10.55 H* (0.66-1.25) mg/dL Glucose 201 H (74-99) mg/dL POC Glucose (mg/dL) (70-110) mg/dL Calcium 7.9 L (8.4-10.2) mg/dL Total Bilirubin 1.4 H (0.2-1.3) mg/dL Alkaline Phosphatase 140 H (38-126) U/L Total Protein 5.1 L (6.3-8.2) g/dL Albumin 2.5 L (3.5-5.0) g/dL Procalcitonin 10.20 H (0.02-0.50) ng/mL 12/20/23 Range/Units 07:14 WBC (4.50-10.00) X 10*3/uL RBC (4.40-5.60) X 10*6/uL Hgb (13.0-17.0) g/dL Hct (39.6-50.0) % Sodium (137-145) mmol/L Potassium (3.5-5.1) mmol/L Carbon Dioxide (22-30) mmol/L BUN (9-20) mg/dL Creatinine (0.66-1.25) mg/dL Glucose (74-99) mg/dL POC Glucose (mg/dL) 197 H (70-110) mg/dL Calcium (8.4-10.2) mg/dL Total Bilirubin (0.2-1.3) mg/dL Alkaline Phosphatase (38-126) U/L Total Protein (6.3-8.2) g/dL Albumin (3.5-5.0) g/dL Procalcitonin (0.02-0.50) ng/mL Microbiology - Last 24 Hours (Table) 12/19/23 06:00 Gram Stain - Preliminary Peritoneal Fluid Body Fluid Culture - Preliminary 12/16/23 21:54 Blood Culture - Preliminary Blood 12/17/23 02:00 Gram Stain - Final Peritoneal Fluid Body Fluid Culture - Final Staphylococcus epidermidis Assessment and Plan (1) Acute peritonitis Current Visit: Yes Status: Acute Code(s): K65.0 - GENERALIZED (ACUTE) PERITONITIS SNOMED Code(s): 20085478 (2) Leukocytosis Current Visit: No Status: Acute Code(s): D72.829 - ELEVATED WHITE BLOOD CELL COUNT, UNSPECIFIED SNOMED Code(s): 873130730 Plan: 1patient presented to hospital with abdominal pain has been diagnosed with the PD catheter associated peritonitis cultures currently growing staph epi patient may be able to salvage his current PD catheter however plan is for transition to hemodialysis as the patient is going to the care home and cannot receive peritoneal dialysis there if that is the case the PD catheter should be discontinued that will help him complete healing of his current infection. 2once patient started on hemodialysis antibiotic will be switched over to vancomycin through the dialysis for another 2 weeks 3-there was some mention of colitis on the CT however patient did not have any abdominal tenderness and did not have any bowel movement for the last few days as reported by the nursing staff clinical doubt colitis Care has been discussed with the research affiliate We will follow on clinical condition and cultures to further adjust medication if needed Thank you for this consultation we will follow the patient along with you Dictation was produced using [employer] dictation software. please excuse any grammatical, word or spelling errors. Time with Patient: Greater than 30
[2023-12-21 08:27] LABS: Hepatitis B Surface Antigen Nonreactive (Nonreactive)
[2023-12-21 08:36] LABS: Hepatitis B Surface AB- Quant 36.1 mIU/mL
[2023-12-21 09:55] LABS: Appearance,BF Clear (Clear)
[2023-12-21] MEDS: POTASSIUM CHLORIDE ER 20 MEQ TAB.ER PO STA (10:28)
--- NOTE | 2023-12-21 11:21 | P.PN ---
Subjective Progress Note Date: 12/21/23 Principal diagnosis: End-stage renal disease Was called to see patient and from the medical team. Apparently patient has a left upper extremity fistula that he did not disclose yesterday. Spoke with patient and states that it was last used 6 months ago. It was placed in [facility]. He did peritoneal dialysis because it was easier on him at home. He is scheduled today to get the peritoneal dialysis removed and was tentatively scheduled for possible tunneled catheter placement. Objective - Vital Signs Vital signs: Vital Signs Temp 97.9 F 12/21/23 08:00 Pulse 49 L 12/21/23 08:00 Resp 16 12/21/23 08:00 BP 126/56 12/21/23 08:00 Pulse Ox 97 12/21/23 08:00 FiO2 Intake & Output 12/20/23 12/21/23 12/21/23 18:59 06:59 18:59 Intake Total 200 100 Balance 200 100 Intake: Intake, IV Titration 200 100 Amount Magnesium Sulfate-D5w Pmx 100 1 gm In Dextrose/Water 1 100ml.bag @ 100 mls/hr IVPB Q1H [facility] Rx#: [id number] Piperacillin-Tazobactam 3 100 100 .375 gm In Sodium Chloride 0.9% 100 ml @ 25 mls/hr IVPB Q12HR [facility] Rx #:[id number] Oral 0 Other: Voiding Method CAPD CAPD - Exam General appearance: The patient is alert, oriented, appears in no acute distress. HET: Head is normocephalic and atraumatic. Pupils are equal and reactive. Neck: Supple. Heart: Regular. Lungs: Equal expansion, normal respiratory effort. Abdomen: Soft, nontender, nondistended. Extremities: Normal skin color and turgor. Left upper extremity fistula with palpable thrill and audible bruit. Neurological: No focal deficits. - Labs CBC & Chem 7: 12/21/23 04:09 12/21/23 04:09 Labs: Abnormal Lab Results - Last 24 Hours (Table) 12/20/23 12/20/23 12/20/23 Range/Units 03:47 11:21 16:15 RBC (4.30-5.90) m/uL Hgb (13.0-17.5) gm/dL Hct (39.0-53.0) % Lymphocytes # (Manual) (1.0-4.8) k/uL Metamyelocytes # (Man) (0) k/uL Myelocytes # (Manual) (0) k/uL Sodium (137-145) mmol/L Potassium (3.5-5.1) mmol/L BUN (9-20) mg/dL Creatinine (0.66-1.25) mg/dL Glucose (74-99) mg/dL POC Glucose (mg/dL) 206 H 224 H (70-110) mg/dL Calcium (8.4-10.2) mg/dL Hep Bs Antibody A (Negative) 12/20/23 12/21/23 12/21/23 Range/Units 21:00 04:09 04:09 RBC 3.32 L (4.30-5.90) m/uL Hgb 10.0 L (13.0-17.5) gm/dL Hct 30.1 L (39.0-53.0) % Lymphocytes # (Manual) 0.49 L (1.0-4.8) k/uL Metamyelocytes # (Man) 0.29 H (0) k/uL Myelocytes # (Manual) 0.19 H (0) k/uL Sodium 129 L (137-145) mmol/L Potassium 3.3 L (3.5-5.1) mmol/L BUN 61 H (9-20) mg/dL Creatinine 10.65 H* (0.66-1.25) mg/dL Glucose 219 H (74-99) mg/dL POC Glucose (mg/dL) 252 H (70-110) mg/dL Calcium 7.5 L (8.4-10.2) mg/dL Hep Bs Antibody (Negative) 12/21/23 Range/Units 06:50 RBC (4.30-5.90) m/uL Hgb (13.0-17.5) gm/dL Hct (39.0-53.0) % Lymphocytes # (Manual) (1.0-4.8) k/uL Metamyelocytes # (Man) (0) k/uL Myelocytes # (Manual) (0) k/uL Sodium (137-145) mmol/L Potassium (3.5-5.1) mmol/L BUN (9-20) mg/dL Creatinine (0.66-1.25) mg/dL Glucose (74-99) mg/dL POC Glucose (mg/dL) 232 H (70-110) mg/dL Calcium (8.4-10.2) mg/dL Hep Bs Antibody (Negative) Microbiology - Last 24 Hours (Table) 12/19/23 06:00 Gram Stain - Preliminary Peritoneal Fluid Body Fluid Culture - Preliminary 12/16/23 21:54 Blood Culture - Preliminary Blood Assessment and Plan Assessment: 1. End-stage renal disease requiring hemodialysis 2. Peritonitis 3. Transfer to extended care facility requiring hemodialysis Plan: Patient is scheduled for peritoneal dialysis catheter removal today. He was tentatively scheduled for a tunnel catheter placement however it was noted that patient actually has a left upper extremity fistula with a palpable thrill and audible bruit. This was discussed with nephrology who states he did not think that it was still working. Dr. De Anda will order hemodialysis tomorrow with use of fistula. Vascular surgery will stay on standby. Thank you for this consultation, we will continue to follow. The impression and plan of care has been dictated as directed. Dr. Cyr I performed a history and examination of this patient, discussed the same with the dictator. I agree with the dictator's note ,documented as a scribe. Any ad ditional findings or plans will be noted.
--- NOTE | 2023-12-21 11:39 | P.PN ---
Subjective Patient is seen in follow-up for end-stage renal disease. He is maintained on peritoneal dialysis. Dialysate culture positive for oxacillin resistant staph epi. Cell count noted to be high at 3382 dated December 17, 2023 and improved significantly post antibiotics. Resting in bed. Will need to go to rehab upon discharge. Feels weak. Unable to ambulate on his own. No active complaints. Vital signs are stable. General: No acute distress. HEENT: Head exam is unremarkable. LUNGS: No audible rhonchi or wheezes. HEART: Rate and Rhythm are regular. ABDOMEN: Generalized tenderness. EXTREMITITES: 1+ edema. Objective - Vital Signs Vital signs: Vital Signs Temp 97.9 F 12/21/23 08:00 Pulse 49 L 12/21/23 08:00 Resp 16 12/21/23 08:00 BP 126/56 12/21/23 08:00 Pulse Ox 97 12/21/23 08:00 FiO2 Intake & Output 12/20/23 12/21/23 12/21/23 18:59 06:59 18:59 Intake Total 200 100 Balance 200 100 Intake: Intake, IV Titration 200 100 Amount Magnesium Sulfate-D5w Pmx 100 1 gm In Dextrose/Water 1 100ml.bag @ 100 mls/hr IVPB Q1H [facility] Rx#: [id number] Piperacillin-Tazobactam 3 100 100 .375 gm In Sodium Chloride 0.9% 100 ml @ 25 mls/hr IVPB Q12HR [facility] Rx #:[id number] Oral 0 Other: Voiding Method CAPD CAPD - Labs CBC & Chem 7: 12/21/23 04:09 12/21/23 04:09 Labs: Abnormal Lab Results - Last 24 Hours (Table) 12/20/23 12/20/23 12/20/23 Range/Units 03:47 16:15 21:00 RBC (4.30-5.90) m/uL Hgb (13.0-17.5) gm/dL Hct (39.0-53.0) % Lymphocytes # (Manual) (1.0-4.8) k/uL Metamyelocytes # (Man) (0) k/uL Myelocytes # (Manual) (0) k/uL Sodium (137-145) mmol/L Potassium (3.5-5.1) mmol/L BUN (9-20) mg/dL Creatinine (0.66-1.25) mg/dL Glucose (74-99) mg/dL POC Glucose (mg/dL) 224 H 252 H (70-110) mg/dL Calcium (8.4-10.2) mg/dL Hep Bs Antibody A (Negative) 12/21/23 12/21/23 12/21/23 Range/Units 04:09 04:09 06:50 RBC 3.32 L (4.30-5.90) m/uL Hgb 10.0 L (13.0-17.5) gm/dL Hct 30.1 L (39.0-53.0) % Lymphocytes # (Manual) 0.49 L (1.0-4.8) k/uL Metamyelocytes # (Man) 0.29 H (0) k/uL Myelocytes # (Manual) 0.19 H (0) k/uL Sodium 129 L (137-145) mmol/L Potassium 3.3 L (3.5-5.1) mmol/L BUN 61 H (9-20) mg/dL Creatinine 10.65 H* (0.66-1.25) mg/dL Glucose 219 H (74-99) mg/dL POC Glucose (mg/dL) 232 H (70-110) mg/dL Calcium 7.5 L (8.4-10.2) mg/dL Hep Bs Antibody (Negative) Microbiology - Last 24 Hours (Table) 12/19/23 06:00 Gram Stain - Preliminary Peritoneal Fluid Body Fluid Culture - Preliminary 12/16/23 21:54 Blood Culture - Preliminary Blood Assessment and Plan Plan: Assessment: 1. End-stage renal disease maintained on peritoneal dialysis. 2. PD associated peritonitis with dialysate culture positive for staph epi and cell count 3382 with 100% PMNs dated December 17, 2023. Repeat cell count 41 and PMNs 81% dated December 19, 2023. Cell count 8 dated December 21, 2023. 3. 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 4. Hypertension with chronic kidney disease. Controlled. 5. Colitis maintained on IV antibiotics. Surgery following. 6. Volume overload. Improved. Plan: PD exchanges discontinued as of this morning. 1 g intraperitoneal vancomycin given December 18, 2023. Hold hydralazine for systolic blood pressure less than 120. Monitor vancomycin levels. Dose to be adjusted for renal function. Patient will be going to subacute rehab upon discharge. Patient will need to change to hemodialysis. Patient has a functioning left upper extremity AV fistula. Plan for hemodialysis treatment tomorrow. Case discussed with infectious disease. PD catheter will be discontinued today. Potassium replaced.
[2023-12-21 11:48] LABS: Glucose,Whole Blood 155 mg/dL (70-110)
[2023-12-21] MEDS: IV FLUID CONTINUATION 1,000 ML IV ONE (13:07)
[2023-12-21] MEDS ORDERED: KETAMINE HCL IN 0.9 % NACL 50 MG/5 ML SYRINGE ONE (13:25)
[2023-12-21] MEDS ORDERED: MIDAZOLAM 2 MG/2 ML VIAL ONE (13:25)
[2023-12-21] MEDS ORDERED: PROPOFOL 10 MG/ML 20 ML VIAL IV ONE (13:25)
[2023-12-21] MEDS ORDERED: LIDOCAINE 1% INJ 10MG/ML (20 ML MDV) ONE (13:25)
[2023-12-21] MEDS ORDERED: fentaNYL (PF) 50 MCG/ML 2 ML AMP ONE (13:25)
[2023-12-21] MEDS ORDERED: ePHEDrine 50 MG/ML 1 ML VIAL ONE (13:25)
[2023-12-21 13:31] LABS: Glucose,Whole Blood 105 mg/dL (70-110)
[2023-12-21] MEDS: BUPIVACAINE (PF) 0.25% 30 ML VIAL SQ ONE (13:47)
--- NOTE | 2023-12-21 14:01 | P.OP ---
Date of Procedure: 12/21/23 Procedure(s) Performed: PREOPERATIVE DIAGNOSIS: Renal failure, peritonitis POSTOPERATIVE DIAGNOSIS: Same PROCEDURE: PD cath removal SURGEON: Sanna EBL: 2 mL ANESTHESIA: Sedation and local COMPLICATIONS: None OPERATIVE PROCEDURE: Patient was placed in the supine position. The abdomen was prepped and draped in usual sterile fashion. The previous paramedian incision was re-incised after localizing the skin. The subcutaneous tissues were divided using electrocautery. Blunt dissection around the cuff that was present at the fascia and peritoneum took place. The cuff was fully mobilized. The catheter was removed from the perineal cavity. The outer cuff was dissected from the saphenous fascia using electrocautery. The catheter was cut on the other side of that cuff and the catheter was removed. The fascial defect was closed using a single [id number] 0 Vicryl stitch. The subcutaneous tissues were closed using 3-0 Vicryl sutures and the skin using 4-0 Monocryl sutures. Skin glue and sterile dressings were applied. DISPOSITION: Stable to recovery room
--- NOTE | 2023-12-21 15:26 | P.PN ---
Subjective Progress Note Date: 12/21/23 This is a pleasant 63 years old male with past medical history of multiple medical problems including diabetes, hypertension, end-stage renal disease on peritoneal dialysis. Patient presents because of abdominal pain, for a few days but he could not specify in the right lower quadrant radiating across his lower abdomen moderate to severe in quality, nonspecific with no relieving or precipitating factors. Patient has good bowel movement as he describes he has no vomiting and could eat hamburger today although there is some loss of appetite. He does not make urine, he denies chest pain. However he was complaining from some dyspnea with no cough. No headache dizziness weakness or numbness He is with no smoking alcohol or illicit drug history He is afebrile, vitals are stable He has evidence of leukocytosis 19K, down to 14K, hemoglobin 10-11 which is close to baseline of 9-10. Liver enzymes not elevated and rest of labs unremarkable Chest x-ray showing possible right lower lobe opacity. CT of the abdomen pelvis without contrast showing mild thickening of the colon suspicious for colitis Blood cultures requested as well as peritoneal fluid catheter as well as suspicion of some infection around the area Patient currently started on Zosyn and IV vancomycin 12/18/2023 Patient is seen and evaluated in follow-up this morning is lethargic although arousable although fatigues easily. Patient is scheduled to undergo dialysis today with nephrology following. Patient's blood sugars have been elevated and uncontrolled and will initiate sliding scale and adjust insulins and add long-ac ting if needed. Patient is afebrile and continues with some shortness of breath and is maintained on oxygen, poor historian and unknown if patient wears oxygen at home. Patient extremely weak as well and will have PT/OT therapy evaluate the patient. Patient continues on IV antibiotics at this time with cultures pending 12/19/2023 Patient is seen in follow-up today extremely lethargic although is arousable slightly more awake to converse today although fatigues easily. Patient is receiving peritoneal dialysis with nephrology following closely. Patient to be evaluated by PT/OT therapy and likely will need rehab. Patient does have a fistula noted in the left upper extremity and will need to possibly transition to hemodialysis while at rehab. Case management is following working on dis charge planning. Patient continues on IV antibiotics and cultures previously showing staph epi, likely contaminant with repeat cultures being ordered for a.m. Patient is maintained on antibiotics as well for colitis with general surgery following with no plans of surgical intervention at this time. Patient reports he does not like the food here and is not eating much. Afebrile and will await repeat cultures. 12/20/2023 Patient is seen in follow-up today a little more awake although fatigues easily during conversation. Currently undergoing peritoneal dialysis and maintained on antibiotics and infectious disease has been consulted. Procalcitonin was noted to be 10 and concerns of peritonitis. Plan is to remove abdominal dialysis catheter and vascular surgery was consulted for permacath placement. Patient does have a left arm fistula although was thought to be nonfunctioning at this time. Patient will need PT/OT therapy updated notes with plans on going to ECF on discharge. Repeat cultures thus far are negative. 12/21/2023 Patient is seen and evaluated in follow-up today with mother at bedside. Plans for removing peritoneal dialysis catheter with concerns of peritonitis with cultures positive. Repeat cultures are negative with infectious disease and nephrology following. Vascular surgery was also consulted in the event patient may require permacath placement as patient is weak will be needing ECF on discharge and will be transitioning to hemodialysis as they do not accommodate peritoneal dialysis exchanges at rehab. Patient does have a left fistula noted and reports his initial fistula was nonfunctioning although he had it rerouted approximately 6 months ago and then transition to peritoneal dialysis due to traveling issues and compliance with treatment plan. Will evaluate AV fistula and plan for hemodialysis in the a.m. per nephrology. Vascular surgery is on standby in the event patient fistula is nonfunctioning and requires a permacath placement. Patient is afebrile with no reports of chest pain or shortness of breath. Patient is agitated about continuing to be hospitalized although is agreeable to rehab on discharge. Mother at the bedside and is agreeable with this plan as well. Will follow-up with case management regarding discharge kala nning possibly early next week. Review of systems: Constitutional: reports of fatigue, no fever, or chills Cardiovascular: No reports of chest pain or palpitations Respiratory: reports of occasional shortness of breath GI: No reports of nausea, vomiting, or diarrhea, reports not much of an appetite and does not care for the food here : No reports of dysuria or retention, does not make urine Neurovascular: reports of weakness All medications have been reviewed Physical exam: GENERAL: The patient is awake this morning, alert and oriented x2. Well developed, well nourished. Obese HEENT: Pupils are round and equally reacting to light. EOMI. No scleral icterus. No conjunctival pallor. Normocephalic, atraumatic. No pharyngeal erythema. No thyromegaly. CARDIOVASCULAR: S1 and S2 muffled PULMONARY: Diminished breath sounds bilaterally no wheezing , faint crackles noted. ABDOMEN: Soft, right lower quadrant tenderness, nondistended, normoactive bowel sounds. No palpable organomegaly. MUSCULOSKELETAL: No joint swelling or deformity. EXTREMITIES: No cyanosis, clubbing, or pedal edema. NEUROLOGICAL: Gross neurological examination did not reveal any focal deficits. Diffusely weak SKIN: No rashes. no petechiae. Assessment: Abdominal pain secondary to colitis Right lower lobe pneumonia End-stage renal disease on peritoneal dialysis, will be transitioning to hemodialysis and it is noted patient has a left upper extremity fistula that he reports was rerouted in [place] approximately 6 months ago prior to transitioning to peritoneal dialysis. Positive thrill noted on exam. peritonitis secondary to peritoneal dialysis, cultures showing oxacillin resistant Staph epidermidis. Repeat cultures are negative thus far. Peritoneal catheter will be removed by general surgery today 12/21/2023 Diabetes mellitus, type II, uncontrolled with hyperglycemia Bilateral leg edema Hypertension History of GERD History of bleeding ulcer Obesity with a BMI 30.5 GI prophylaxis DVT prophylaxis Full code Plan: Continue with IV vancomycin and Zosyn. infectious disease following. Patient is having general surgery services remove the peritoneal dialysis catheter per infectious disease and nephrology Continue with pain management although recommend to hold narcotics and sedative agents as patient is lethargic. Lyrica will be made as scheduled not as needed Wean FiO2 as tolerated. Encouraged patient to sit up out of the bed more often Continue with GI and DVT prophylaxis Recommend PT/OT therapy evaluation as patient will need rehab. Case management is following and will need to transition to hemodialysis while at rehab as there are no ECF's available that do peritoneal dialysis. Patient will also require insurance authorization. Will follow-up with consultations regarding discharge planning. Plan is for hemodialysis on 12/22/2023 and assessment of the AV fistula on the left. Prognosis is guarded The impression and plan of care has been dictated by Liset Shipman, Nurse Practitioner as directed. Dr. Varsha MD I have performed a history and examination and MDM of this patient, discussed the same with the dictator, and agree with the dictator's assessment and plan as written ,documented as a scribe. Based on total visit time, I have performed more than 50% of the visit. Objective - Vital Signs Vital signs: Vital Signs Temp 97.9 F 12/21/23 08:00 Pulse 49 L 12/21/23 06:00 Resp 16 12/21/23 08:00 BP 126/56 12/21/23 08:00 Pulse Ox 97 12/21/23 08:00 FiO2 Intake & Output 12/20/23 12/21/23 12/21/23 18:59 06:59 18:59 Intake Total 200 100 Balance 200 100 Intake: Intake, IV Titration 200 100 Amount Magnesium Sulfate-D5w Pmx 100 1 gm In Dextrose/Water 1 100ml.bag @ 100 mls/hr IVPB Q1H [facility] Rx#: [id number] Piperacillin-Tazobactam 3 100 100 .375 gm In Sodium Chloride 0.9% 100 ml @ 25 mls/hr IVPB Q12HR [facility] Rx #:[id number] Oral 0 Other: Voiding Method CAPD CAPD - Labs CBC & Chem 7: 12/21/23 04:09 12/21/23 04:09 Labs: Abnormal Lab Results - Last 24 Hours (Table) 12/20/23 12/20/23 12/20/23 Range/Units 03:47 03:47 11:21 RBC (4.30-5.90) m/uL Hgb (13.0-17.5) gm/dL Hct (39.0-53.0) % Neutrophils # (Manual) 10.23 H (1.80-7.70) X 10*3/uL Lymphocytes # (Manual) (1.0-4.8) k/uL Basophils # (Manual) 0.12 H (0.00-0.10) X 10*3/uL Metamyelocytes # (Man) (0) k/uL Myelocytes # (Manual) (0) k/uL Sodium (137-145) mmol/L Potassium (3.5-5.1) mmol/L BUN (9-20) mg/dL Creatinine (0.66-1.25) mg/dL Glucose (74-99) mg/dL POC Glucose (mg/dL) 206 H (70-110) mg/dL Calcium (8.4-10.2) mg/dL Hep Bs Antibody A (Negative) 12/20/23 12/20/23 12/21/23 Range/Units 16:15 21:00 04:09 RBC 3.32 L (4.30-5.90) m/uL Hgb 10.0 L (13.0-17.5) gm/dL Hct 30.1 L (39.0-53.0) % Neutrophils # (Manual) (1.80-7.70) X 10*3/uL Lymphocytes # (Manual) 0.49 L (1.0-4.8) k/uL Basophils # (Manual) (0.00-0.10) X 10*3/uL Metamyelocytes # (Man) 0.29 H (0) k/uL Myelocytes # (Manual) 0.19 H (0) k/uL Sodium (137-145) mmol/L Potassium (3.5-5.1) mmol/L BUN (9-20) mg/dL Creatinine (0.66-1.25) mg/dL Glucose (74-99) mg/dL POC Glucose (mg/dL) 224 H 252 H (70-110) mg/dL Calcium (8.4-10.2) mg/dL Hep Bs Antibody (Negative) 12/21/23 12/21/23 Range/Units 04:09 06:50 RBC (4.30-5.90) m/uL Hgb (13.0-17.5) gm/dL Hct (39.0-53.0) % Neutrophils # (Manual) (1.80-7.70) X 10*3/uL Lymphocytes # (Manual) (1.0-4.8) k/uL Basophils # (Manual) (0.00-0.10) X 10*3/uL Metamyelocytes # (Man) (0) k/uL Myelocytes # (Manual) (0) k/uL Sodium 129 L (137-145) mmol/L Potassium 3.3 L (3.5-5.1) mmol/L BUN 61 H (9-20) mg/dL Creatinine 10.65 H* (0.66-1.25) mg/dL Glucose 219 H (74-99) mg/dL POC Glucose (mg/dL) 232 H (70-110) mg/dL Calcium 7.5 L (8.4-10.2) mg/dL Hep Bs Antibody (Negative) Microbiology - Last 24 Hours (Table) 12/19/23 06:00 Gram Stain - Preliminary Peritoneal Fluid Body Fluid Culture - Preliminary 12/16/23 21:54 Blood Culture - Preliminary Blood
[2023-12-21 16:48] LABS: Glucose,Whole Blood 105 mg/dL (70-110)
[2023-12-21 21:05] LABS: Glucose,Whole Blood 103 mg/dL (70-110)
[2023-12-22 06:59] LABS: Glucose,Whole Blood 102 mg/dL (70-110)
--- NOTE | 2023-12-22 10:41 | P.PN ---
Subjective Progress Note Date: 12/22/23 CHIEF COMPLAINT: Abdominal pain HISTORY OF PRESENT ILLNESS: Postop day #1 status post removal of PD catheter. Patient denies any abdominal pain. He is having flatus. Reports it has been several days since his last bowel movement. Afebrile. Patient is scheduled to start hemodialysis treatment today PHYSICAL EXAM: VITAL SIGNS: Reviewed. GENERAL: in no acute distress. ABDOMEN: Soft. Nontender. Nondistended. Dressing over old PD catheter site is clean, dry and intact. ASSESSMENT: 1. Peritonitis status post PD catheter removal 2. Abdominal ileus PLAN: -Lactulose added for constipation -Continue antibiotics Physician Fur Trimming Machine Operator note has been reviewed by physician. Signing provider agrees with the documented findings, assessment, and plan of care. I have personally seen and examined the patient, reviewed the DOT COMPLIANCE COORDINATOR /PAs history, exam and MDM and agree with the assessment and plan as written. Based on total visit time, I have performed more than 50% of the visit. As above: Patient not having any significant abdominal pain currently. Dressing is clean and dry. Will reassess and change dressing on Monday. Objective - Vital Signs Vital signs: Vital Signs Temp 98.7 F 12/22/23 08:00 Pulse 63 12/22/23 08:00 Resp 19 12/22/23 08:00 BP 147/71 12/22/23 08:00 Pulse Ox 95 12/22/23 02:00 FiO2 Intake & Output 12/21/23 12/22/23 12/22/23 18:59 06:59 18:59 Intake Total 250 100 Output Total 10 Balance 240 100 Intake: IV 150 Intake, IV Titration 100 100 Amount Piperacillin-Tazobactam 3 100 100 .375 gm In Sodium Chloride 0.9% 100 ml @ 25 mls/hr IVPB Q12HR [facility] Rx #:[id number] Output: Estimated Blood Loss 10 Other: Voiding Method Diaper - Labs CBC & Chem 7: 12/21/23 04:09 12/21/23 04:09 Labs: Abnormal Lab Results - Last 24 Hours (Table) 12/21/23 Range/Units 11:46 POC Glucose (mg/dL) 155 H (70-110) mg/dL Microbiology - Last 24 Hours (Table) 12/19/23 06:00 Gram Stain - Preliminary Peritoneal Fluid Body Fluid Culture - Preliminary 12/21/23 01:38 Gram Stain - Preliminary Dialysate Body Fluid Culture - Preliminary
--- NOTE | 2023-12-22 10:51 | P.PN ---
Subjective Patient is seen in follow-up for end-stage renal disease. He is maintained on peritoneal dialysis. Dialysate culture positive for oxacillin resistant staph epi. Cell count noted to be high at 3382 dated December 17, 2023 and improved significantly post antibiotics. Resting in bed. Will need to go to rehab upon discharge. PD catheter removed December 21, 2023. Will start hemodialysis today. Vital signs are stable. General: No acute distress. HEENT: Head exam is unremarkable. LUNGS: No audible rhonchi or wheezes. HEART: Rate and Rhythm are regular. ABDOMEN: Generalized tenderness. EXTREMITITES: 1+ edema. Objective - Vital Signs Vital signs: Vital Signs Temp 98.7 F 12/22/23 08:00 Pulse 63 12/22/23 08:00 Resp 19 12/22/23 08:00 BP 147/71 12/22/23 08:00 Pulse Ox 95 12/22/23 02:00 FiO2 Intake & Output 12/21/23 12/22/23 12/22/23 18:59 06:59 18:59 Intake Total 250 100 Output Total 10 Balance 240 100 Intake: IV 150 Intake, IV Titration 100 100 Amount Piperacillin-Tazobactam 3 100 100 .375 gm In Sodium Chloride 0.9% 100 ml @ 25 mls/hr IVPB Q12HR [facility] Rx #:[id number] Output: Estimated Blood Loss 10 Other: Voiding Method Diaper - Labs CBC & Chem 7: 12/21/23 04:09 12/21/23 04:09 Labs: Abnormal Lab Results - Last 24 Hours (Table) 12/21/23 Range/Units 11:46 POC Glucose (mg/dL) 155 H (70-110) mg/dL Microbiology - Last 24 Hours (Table) 12/19/23 06:00 Gram Stain - Preliminary Peritoneal Fluid Body Fluid Culture - Preliminary 12/21/23 01:38 Gram Stain - Preliminary Dialysate Body Fluid Culture - Preliminary Assessment and Plan Plan: Assessment: 1. End-stage renal disease maintained on peritoneal dialysis. 2. PD associated peritonitis with dialysate culture positive for staph epi and cell count 3382 with 100% PMNs dated December 17, 2023. Repeat cell count 41 and PMNs 81% dated December 19, 2023. Cell count 8 dated December 21, 2023. 3. 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 4. Hypertension with chronic kidney disease. Controlled. 5. Colitis maintained on IV antibiotics. Surgery and ID following. 6. Volume overload. Improved. Plan: 1 g intraperitoneal vancomycin given December 18, 2023. PD catheter removed December 21, 2023. Hold hydralazine for systolic blood pressure less than 120. Monitor vancomycin levels. Dose to be adjusted for renal function. Patient will be going to subacute rehab upon discharge. Patient will need to change to hemodialysis. Patient has a functioning left upper extremity AV fistula. Plan for hemodialysis treatment today and again tomorrow. Patient will be maintained on TTS schedule outpatient.
--- NOTE | 2023-12-22 10:56 | P.PN ---
Subjective Progress Note Date: 12/22/23 Principal diagnosis: End-stage renal disease Patient seen and examined today as a follow-up. Yesterday he underwent removal of his peritoneal dialysis catheter. Today he is to undergo hemodialysis with use of his left upper extremity fistula. No other complaints at this time. Objective - Vital Signs Vital signs: Vital Signs Temp 98.1 F 12/22/23 02:00 Pulse 65 12/22/23 02:00 Resp 18 12/22/23 02:00 BP 137/68 12/22/23 02:00 Pulse Ox 95 12/22/23 02:00 FiO2 Intake & Output 12/21/23 12/22/23 12/22/23 18:59 06:59 18:59 Intake Total 250 100 Output Total 10 Balance 240 100 Intake: IV 150 Intake, IV Titration 100 100 Amount Piperacillin-Tazobactam 3 100 100 .375 gm In Sodium Chloride 0.9% 100 ml @ 25 mls/hr IVPB Q12HR [facility] Rx #:[id number] Output: Estimated Blood Loss 10 Other: Voiding Method Diaper - Exam General appearance: The patient is alert, oriented, appears in no acute distress. HET: Head is normocephalic and atraumatic. Pupils are equal and reactive. Neck: Supple. Heart: Regular. Lungs: Equal expansion, normal respiratory effort. Abdomen: Soft, nontender, nondistended. Extremities: Normal skin color and turgor. Left upper extremity fistula with palpable thrill and audible bruit. Neurological: No focal deficits. - Labs CBC & Chem 7: 12/21/23 04:09 12/21/23 04:09 Labs: Abnormal Lab Results - Last 24 Hours (Table) 12/20/23 12/21/23 Range/Units 03:47 11:46 POC Glucose (mg/dL) 155 H (70-110) mg/dL Hep Bs Antibody A (Negative) Microbiology - Last 24 Hours (Table) 12/21/23 01:38 Gram Stain - Preliminary Dialysate 12/19/23 06:00 Gram Stain - Preliminary Peritoneal Fluid Body Fluid Culture - Preliminary Assessment and Plan Assessment: 1. End-stage renal disease requiring hemodialysis 2. Peritonitis, status post removal of peritoneal dialysis catheter 3. Left upper extremity fistula Plan: 1. Hemodialysis per recommendations from nephrology 2. May access left upper extremity fistula 3. Please contact vascular surgery if unable to complete hemodialysis Thank you for this consultation, we will continue to follow. The impression and plan of care has been dictated as directed. Dr. Cyr I performed a history and examination of this patient, discussed the same with the dictator. I agree with the dictator's note ,documented as a scribe. Any additional findings or plans will be noted.
[2023-12-22 11:45] LABS: Glucose,Whole Blood 103 mg/dL (70-110)
[2023-12-22 15:05] VITALS: BMI 30.5
[2023-12-22] MEDS: LACTULOSE 20 GM/30 ML CUP PO ONE (15:23)
--- NOTE | 2023-12-22 15:44 | P.PN ---
Subjective Progress Note Date: 12/21/23 Principal diagnosis: Reason for follow-up is PD catheter associated peritonitis Patient is a 63-year-old male with a past medical history of again for diabetes mellitus that includes hypertension pneumonia end-stage renal disease currently on peritoneal dialysis patient has been brought into the hospital for evaluation of abdominal pain in this patient has been diagnosed with a PD catheter associated peritonitis with a peritoneal fluid culture positive for staph epi. On today's evaluation that is 12/21/2023,the patient denies any fever or any chills, patient is breathing comfortably on room air, the patient denies chest pain shortness of breath and no significant cough, patient denies nausea vomiting or diarrhea and abdominal pain has decreased in intensity. Patient white count is normal at 9.7, creatinine is 10.65 blood culture has been negative repeat peritoneal fluid cultures so far negative Objective - Vital Signs Vital signs: Vital Signs Temp 97.9 F 12/21/23 08:00 Pulse 49 L 12/21/23 13:05 Resp 16 12/21/23 13:05 BP 123/58 12/21/23 13:05 Pulse Ox 98 12/21/23 13:05 FiO2 Intake & Output 12/20/23 12/21/23 12/21/23 18:59 06:59 18:59 Intake Total 200 100 Balance 200 100 Intake: Intake, IV Titration 200 100 Amount Magnesium Sulfate-D5w Pmx 100 1 gm In Dextrose/Water 1 100ml.bag @ 100 mls/hr IVPB Q1H [facility] Rx#: [id number] Piperacillin-Tazobactam 3 100 100 .375 gm In Sodium Chloride 0.9% 100 ml @ 25 mls/hr IVPB Q12HR [facility] Rx #:[id number] Oral 0 Other: Voiding Method CAPD CAPD - Exam GENERAL DESCRIPTION: An elderly male lying in bed in no distress RESPIRATORY SYSTEM: Unlabored breathing , decreased breath sounds at bases HEART: S1 S2 regular rate and rhythm , ABDOMEN: Soft , no tenderness EXTREMITIES: No edema feet - Labs CBC & Chem 7: 12/21/23 04:09 12/21/23 04:09 Labs: Abnormal Lab Results - Last 24 Hours (Table) 12/20/23 12/20/23 12/20/23 Range/Units 03:47 16:15 21:00 RBC (4.30-5.90) m/uL Hgb (13.0-17.5) gm/dL Hct (39.0-53.0) % Lymphocytes # (Manual) (1.0-4.8) k/uL Metamyelocytes # (Man) (0) k/uL Myelocytes # (Manual) (0) k/uL Sodium (137-145) mmol/L Potassium (3.5-5.1) mmol/L BUN (9-20) mg/dL Creatinine (0.66-1.25) mg/dL Glucose (74-99) mg/dL POC Glucose (mg/dL) 224 H 252 H (70-110) mg/dL Calcium (8.4-10.2) mg/dL Hep Bs Antibody A (Negative) 12/21/23 12/21/23 12/21/23 Range/Units 04:09 04:09 06:50 RBC 3.32 L (4.30-5.90) m/uL Hgb 10.0 L (13.0-17.5) gm/dL Hct 30.1 L (39.0-53.0) % Lymphocytes # (Manual) 0.49 L (1.0-4.8) k/uL Metamyelocytes # (Man) 0.29 H (0) k/uL Myelocytes # (Manual) 0.19 H (0) k/uL Sodium 129 L (137-145) mmol/L Potassium 3.3 L (3.5-5.1) mmol/L BUN 61 H (9-20) mg/dL Creatinine 10.65 H* (0.66-1.25) mg/dL Glucose 219 H (74-99) mg/dL POC Glucose (mg/dL) 232 H (70-110) mg/dL Calcium 7.5 L (8.4-10.2) mg/dL Hep Bs Antibody (Negative) 12/21/23 Range/Units 11:46 RBC (4.30-5.90) m/uL Hgb (13.0-17.5) gm/dL Hct (39.0-53.0) % Lymphocytes # (Manual) (1.0-4.8) k/uL Metamyelocytes # (Man) (0) k/uL Myelocytes # (Manual) (0) k/uL Sodium (137-145) mmol/L Potassium (3.5-5.1) mmol/L BUN (9-20) mg/dL Creatinine (0.66-1.25) mg/dL Glucose (74-99) mg/dL POC Glucose (mg/dL) 155 H (70-110) mg/dL Calcium (8.4-10.2) mg/dL Hep Bs Antibody (Negative) Microbiology - Last 24 Hours (Table) 12/19/23 06:00 Gram Stain - Preliminary Peritoneal Fluid Body Fluid Culture - Preliminary 12/16/23 21:54 Blood Culture - Preliminary Blood Assessment and Plan (1) Acute peritonitis Current Visit: Yes Status: Acute Code(s): K65.0 - GENERALIZED (ACUTE) PERITONITIS SNOMED Code(s): 25493194 (2) Leukocytosis Current Visit: No Status: Acute Code(s): D72.829 - ELEVATED WHITE BLOOD CELL COUNT, UNSPECIFIED SNOMED Code(s): 686044117 Plan: 1patient presented to hospital with abdominal pain has been diagnosed with the PD catheter associated peritonitis cultures currently growing staph epi patient may be able to salvage his current PD catheter however plan is for transition to hemodialysis as the patient is going to the senior living and cannot receive peritoneal dialysis there if that is the case the PD catheter should be discontinued that will help him complete healing of his current infection. 2patient is scheduled for discontinuation of the peritoneal dialysis catheter today once switched to hemodialysis we will switch to IV vancomycin pharmacy to dose Dictation was produced using [employer] software. please excuse any grammatical, word or spelling errors. Time with Patient: Less than 30
--- NOTE | 2023-12-22 15:45 | P.PN ---
Subjective Progress Note Date: 12/22/23 Principal diagnosis: Reason for follow-up is PD catheter associated peritonitis Patient is a 63-year-old male with a past medical history of again for diabetes mellitus that includes hypertension pneumonia end-stage renal disease currently on peritoneal dialysis patient has been brought into the hospital for evaluation of abdominal pain in this patient has been diagnosed with a PD catheter associated peritonitis with a peritoneal fluid culture positive for staph epi. On today's evaluation that is 12/22/2023,the patient remains to be afebrile, patient is on room air not requiring supplemental oxygen and denies any shortness of breath no chest pain or cough.Patient denies having any nausea or vomiting, abdominal pain has decreased intensity no diarrhea. No new lab has been obtained today Objective - Vital Signs Vital signs: Vital Signs Temp 98.7 F 12/22/23 08:00 Pulse 63 12/22/23 08:00 Resp 19 12/22/23 08:00 BP 147/71 12/22/23 08:00 Pulse Ox 95 12/22/23 02:00 FiO2 Intake & Output 12/21/23 12/22/23 12/22/23 18:59 06:59 18:59 Intake Total 250 100 Output Total 10 Balance 240 100 Intake: IV 150 Intake, IV Titration 100 100 Amount Piperacillin-Tazobactam 3 100 100 .375 gm In Sodium Chloride 0.9% 100 ml @ 25 mls/hr IVPB Q12HR [facility] Rx #:[id number] Output: Estimated Blood Loss 10 Other: Voiding Method Diaper - Exam GENERAL DESCRIPTION: An elderly male lying in bed in no distress RESPIRATORY SYSTEM: Unlabored breathing , decreased breath sounds at bases HEART: S1 S2 regular rate and rhythm , ABDOMEN: Soft , no tenderness EXTREMITIES: No edema feet - Labs CBC & Chem 7: 12/21/23 04:09 12/21/23 04:09 Labs: Microbiology - Last 24 Hours (Table) 12/16/23 21:54 Blood Culture - Final Blood 12/19/23 06:00 Gram Stain - Preliminary Peritoneal Fluid Body Fluid Culture - Preliminary 12/21/23 01:38 Gram Stain - Preliminary Dialysate Body Fluid Culture - Preliminary Assessment and Plan (1) Acute peritonitis Current Visit: Yes Status: Acute Code(s): K65.0 - GENERALIZED (ACUTE) PERITONITIS SNOMED Code(s): 75530059 (2) Leukocytosis Current Visit: No Status: Acute Code(s): D72.829 - ELEVATED WHITE BLOOD CELL COUNT, UNSPECIFIED SNOMED Code(s): 285889671 Plan: 1patient presented to hospital with abdominal pain has been diagnosed with the PD catheter associated peritonitis cultures currently growing staph epi patient may be able to salvage his current PD catheter however plan is for transition to hemodialysis as the [facility] is [facility] the [facility] and cannot receive peritoneal dialysis there if that is the case the PD catheter should be discontinued that will help him complete healing of his current infection. 2patient is status post removal of the peritoneal dialysis catheter plan is to continue with IV vancomycin pharmacy to dose to the dialysis for another 2 weeks Dictation was produced using [employer] dictation software. please excuse any grammatical, word or spelling errors. Time with Patient: Less than 30
[2023-12-22 16:54] LABS: Glucose,Whole Blood 99 mg/dL (70-110)
[2023-12-22 21:09] LABS: Glucose,Whole Blood 121 mg/dL (70-110)
--- NOTE | 2023-12-23 00:40 | P.PN ---
Subjective Progress Note Date: 12/22/23 This is a pleasant 63 years old male with past medical history of multiple medical problems including diabetes, hypertension, end-stage renal disease on peritoneal dialysis. Patient presents because of abdominal pain, for a few days but he could not specify in the right lower quadrant radiating across his lower abdomen moderate to severe in quality, nonspecific with no relieving or precipitating factors. Patient has good bowel movement as he describes he has no vomiting and could eat hamburger today although there is some loss of appetite. He does not make urine, he denies chest pain. However he was complaining from some dyspnea with no cough. No headache dizziness weakness or numbness He is with no smoking alcohol or illicit drug history He is afebrile, vitals are stable He has evidence of leukocytosis 19K, down to 14K, hemoglobin 10-11 which is close to baseline of 9-10. Liver enzymes not elevated and rest of labs unremarkable Chest x-ray showing possible right lower lobe opacity. CT of the abdomen pelvis without contrast showing mild thickening of the colon suspicious for colitis Blood cultures requested as well as peritoneal fluid catheter as well as suspicion of some infection around the area Patient currently started on Zosyn and IV vancomycin 12/18/2023 Patient is seen and evaluated in follow-up this morning is lethargic although arousable although fatigues easily. Patient is scheduled to undergo dialysis today with nephrology following. Patient's blood sugars have been elevated and uncontrolled and will initiate sliding scale and adjust insulins and add long-ac ting if needed. Patient is afebrile and continues with some shortness of breath and is maintained on oxygen, poor historian and unknown if patient wears oxygen at home. Patient extremely weak as well and will have PT/OT therapy evaluate the patient. Patient continues on IV antibiotics at this time with cultures pending 12/19/2023 Patient is seen in follow-up today extremely lethargic although is arousable slightly more awake to converse today although fatigues easily. Patient is receiving peritoneal dialysis with nephrology following closely. Patient to be evaluated by PT/OT therapy and likely will need rehab. Patient does have a fistula noted in the left upper extremity and will need to possibly transition to hemodialysis while at rehab. Case management is following working on dis charge planning. Patient continues on IV antibiotics and cultures previously showing staph epi, likely contaminant with repeat cultures being ordered for a.m. Patient is maintained on antibiotics as well for colitis with general surgery following with no plans of surgical intervention at this time. Patient reports he does not like the food here and is not eating much. Afebrile and will await repeat cultures. 12/20/2023 Patient is seen in follow-up today a little more awake although fatigues easily during conversation. Currently undergoing peritoneal dialysis and maintained on antibiotics and infectious disease has been consulted. Procalcitonin was noted to be 10 and concerns of peritonitis. Plan is to remove abdominal dialysis catheter and vascular surgery was consulted for permacath placement. Patient does have a left arm fistula although was thought to be nonfunctioning at this time. Patient will need PT/OT therapy updated notes with plans on going to ECF on discharge. Repeat cultures thus far are negative. 12/21/2023 Patient is seen and evaluated in follow-up today with mother at bedside. Plans for removing peritoneal dialysis catheter with concerns of peritonitis with cultures positive. Repeat cultures are negative with infectious disease and nephrology following. Vascular surgery was also consulted in the event patient may require permacath placement as patient is weak will be needing ECF on discharge and will be transitioning to hemodialysis as they do not accommodate peritoneal dialysis exchanges at rehab. Patient does have a left fistula noted and reports his initial fistula was nonfunctioning although he had it rerouted approximately 6 months ago and then transition to peritoneal dialysis due to traveling issues and compliance with treatment plan. Will evaluate AV fistula and plan for hemodialysis in the a.m. per nephrology. Vascular surgery is on standby in the event patient fistula is nonfunctioning and requires a permacath placement. Patient is afebrile with no reports of chest pain or shortness of breath. Patient is agitated about continuing to be hospitalized although is agreeable to rehab on discharge. Mother at the bedside and is agreeable with this plan as well. Will follow-up with case management regarding discharge kala nning possibly early next week. 12/22/2023 Patient seen in follow-up today currently undergoing hemodialysis on left upper extremity fistula. Functioning and tolerating thus far. Patient will continue on hemodialysis and is maintained on antibiotics with infectious disease following we will continue on antibiotics with dialysis for 2-week course on discharge. Plan is for patient to go to ECF as patient is significantly weak and would benefit from aggressive continued strength and mobility. Patient's peritoneal dialysis catheter was removed with general surgery and will continue on hemodialysis for now. Review of systems: Constitutional: reports of fatigue, no fever, or chills Cardiovascular: No reports of chest pain or palpitations Respiratory: reports of occasional shortness of breath GI: No reports of nausea, vomiting, or diarrhea, reports not much of an appetite and does not care for the food here : No reports of dysuria or retention, does not make urine Neurovascular: reports of weakness All medications have been reviewed Physical exam: GENERAL: The patient is awake this morning, alert and oriented x2. Well developed, well nourished. Obese HEENT: Pupils are round and equally reacting to light. EOMI. No scleral icterus. No conjunctival pallor. Normocephalic, atraumatic. No pharyngeal erythema. No thyromegaly. CARDIOVASCULAR: S1 and S2 muffled PULMONARY: Diminished breath sounds bilaterally no wheezing , faint crackles noted. ABDOMEN: Soft, right lower quadrant tenderness, nondistended, normoactive bowel sounds. No palpable organomegaly. MUSCULOSKELETAL: No joint swelling or deformity. EXTREMITIES: No cyanosis, clubbing, or pedal edema. NEUROLOGICAL: Gross neurological examination did not reveal any focal deficits. Diffusely weak SKIN: No rashes. no petechiae. Assessment: Abdominal pain secondary to colitis Right lower lobe pneumonia End-stage renal disease on peritoneal dialysis, has been transitioned to hemodialysis and it is noted patient has a left upper extremity fistula that he reports was rerouted in [place] approximately 6 months ago prior to transitioning to peritoneal dialysis. Positive thrill noted on exam. peritonitis secondary to peritoneal dialysis, cultures showing oxacillin resistant Staph epidermidis. Repeat cultures are negative thus far. Peritoneal catheter was removed by general surgery 12/21/2023 Diabetes mellitus, type II, uncontrolled with hyperglycemia Bilateral leg edema Hypertension History of GERD History of bleeding ulcer Obesity with a BMI 30.5 GI prophylaxis DVT prophylaxis Full code Plan: Continue with IV vancomycin and Zosyn. infectious disease following. Patient had general surgery services remove the peritoneal dialysis catheter per infectious disease and nephrology Continue with pain management although recommend to hold narcotics and sedative agents as patient is lethargic. Lyrica will be made as scheduled not as needed Wean FiO2 as tolerated. Encouraged patient to sit up out of the bed more often Continue with GI and DVT prophylaxis Recommend PT/OT therapy evaluation as patient will need rehab. Case management is following and will be transitioning to hemodialysis while at rehab as there are no ECF's available that do peritoneal dialysis. Patient will also require insurance authorization. Will follow-up with consultations regarding discharge planning. Plan is to continue hemodialysis and will continue with antibiotics with dialysis for 2- week course per ID recommendations Prognosis is guarded The impression and plan of care has been dictated by Liset Shipman, Nurse Practitioner as directed. Dr. Varsha MD I have performed a history and examination and MDM of this patient, discussed th e same with the dictator, and agree with the dictator's assessment and plan as written ,documented as a scribe. Based on total visit time, I have performed more than 50% of the visit. Objective - Vital Signs Vital signs: Vital Signs Temp 98.7 F 12/22/23 08:00 Pulse 63 12/22/23 08:00 Resp 19 12/22/23 08:00 BP 147/71 12/22/23 08:00 Pulse Ox 95 12/22/23 02:00 FiO2 Intake & Output 12/21/23 12/22/23 12/22/23 18:59 06:59 18:59 Intake Total 250 100 Output Total 10 Balance 240 100 Intake: IV 150 Intake, IV Titration 100 100 Amount Piperacillin-Tazobactam 3 100 100 .375 gm In Sodium Chloride 0.9% 100 ml @ 25 mls/hr IVPB Q12HR [facility] Rx #:[id number] Output: Estimated Blood Loss 10 Other: Voiding Method Diaper - Labs CBC & Chem 7: 12/21/23 04:09 12/21/23 04:09 Labs: Abnormal Lab Results - Last 24 Hours (Table) 12/21/23 Range/Units 11:46 POC Glucose (mg/dL) 155 H (70-110) mg/dL Microbiology - Last 24 Hours (Table) 12/19/23 06:00 Gram Stain - Preliminary Peritoneal Fluid Body Fluid Culture - Preliminary 12/21/23 01:38 Gram Stain - Preliminary Dialysate Body Fluid Culture - Preliminary
[2023-12-23 03:59] LABS: African American GFR (CKD) 7 (>60 ml/min/1.73 sqM); Anion Gap 12 mmol/L; Blood Urea Nitrogen 38 mg/dL (9-20); Calcium 7.8 mg/dL (8.4-10.2); Carbon Dioxide 21 mmol/L (22-30); Chloride 100 mmol/L (98-107); Glucose 96 mg/dL (74-99); Non-African American GFR(CKD) 6 (>60 ml/min/1.73 sqM); Potassium 3.6 mmol/L (3.5-5.1); Sodium 133 mmol/L (137-145)
[2023-12-23 04:05] LABS: Vancomycin,Random 16.3 ug/mL
[2023-12-23 06:34] LABS: Glucose,Whole Blood 88 mg/dL (70-110)
[2023-12-23] MEDS: VANCOMYCIN 1,500 MG in SODIUM CHLORIDE 0.9% 500 ML 500 ML IVPB ONE (10:20)
[2023-12-23 11:40] LABS: Glucose,Whole Blood 78 mg/dL (70-110)
--- NOTE | 2023-12-23 11:49 | P.PN ---
Subjective Patient is seen in follow-up for end-stage renal disease. He was on peritoneal dialysis. Dialysate culture positive for oxacillin resistant staph epi. Cell count noted to be high at 3382 dated December 17, 2023 and improved significantly post antibiotics. Resting in bed. Will need to go to rehab upon discharge. PD catheter removed December 21, 2023. Started hemodialysis December 22, 2023. Vital signs are stable. General: No acute distress. HEENT: Head exam is unremarkable. LUNGS: No audible rhonchi or wheezes. HEART: Rate and Rhythm are regular. ABDOMEN: Generalized tenderness. EXTREMITITES: 1+ edema. Objective - Vital Signs Vital signs: Vital Signs Temp 98.7 F 12/23/23 02:00 Pulse 55 L 12/23/23 07:34 Resp 16 12/23/23 07:34 BP 115/54 12/23/23 07:34 Pulse Ox 94 L 12/23/23 07:34 FiO2 Intake & Output 12/22/23 12/23/23 12/23/23 18:59 06:59 18:59 Intake Total 400 180 Output Total 4400 Balance -4000 180 Weight 88.451 kg Intake: Intake, IV Titration 180 Amount IV Fluid Continuation 1, 80 000 ml @ 0 mls/hr IV .STK -[facility] Rx#:[id number] Piperacillin-Tazobactam 3 100 .375 gm In Sodium Chloride 0.9% 100 ml @ 25 mls/hr IVPB Q12HR [facility] Rx #:[id number] Hemodialysis 400 Output: Hemodialysis 2400 Hemodialysis Net Amount 2000 Other: Voiding Method Diaper Diaper # Voids 0 # Bowel Movements 1 - Labs CBC & Chem 7: 12/21/23 04:09 12/23/23 03:23 Labs: Abnormal Lab Results - Last 24 Hours (Table) 12/22/23 12/23/23 Range/Units 21:07 03:23 Sodium 133 L (137-145) mmol/L Carbon Dioxide 21 L (22-30) mmol/L BUN 38 H (9-20) mg/dL Creatinine 8.22 H* (0.66-1.25) mg/dL POC Glucose (mg/dL) 121 H (70-110) mg/dL Calcium 7.8 L (8.4-10.2) mg/dL Microbiology - Last 24 Hours (Table) 10/24/24 01:38 Gram Stain - Preliminary Dialysate Body Fluid Culture - Preliminary 12/16/23 21:54 Blood Culture - Final Blood 12/19/23 06:00 Gram Stain - Preliminary Peritoneal Fluid Body Fluid Culture - Preliminary Assessment and Plan Plan: Assessment: 1. End-stage renal disease maintained on peritoneal dialysis. 2. PD associated peritonitis with dialysate culture positive for staph epi and cell count 3382 with 100% PMNs dated December 17, 2023. Repeat cell count 41 and PMNs 81% dated December 19, 2023. Cell count 8 dated December 21, 2023. 3. 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 4. Hypertension with chronic kidney disease. Controlled. 5. Colitis maintained on IV antibiotics. Surgery and ID following. 6. Volume overload. Improved. Plan: 1 g intraperitoneal vancomycin given December 18, 2023. PD catheter removed December 21, 2023. Hold hydralazine for systolic blood pressure less than 120. Monitor vancomycin levels. Dose to be adjusted for renal function. Patient will be going to subacute rehab upon discharge. Transition to hemodialysis December 22, 2023. Has left upper extremity AV fistula. Currently seen while undergoing hemodialysis. Patient will be maintained on TTS schedule outpatient.
--- NOTE | 2023-12-23 14:38 | P.PN ---
Subjective Progress Note Date: 12/23/23 Principal diagnosis: Reason for follow-up is PD catheter associated peritonitis Patient is a 63-year-old male with a past medical history of again for diabetes mellitus that includes hypertension pneumonia end-stage renal disease currently on peritoneal dialysis patient has been brought into the hospital for evaluation of abdominal pain in this patient has been diagnosed with a PD catheter associated peritonitis with a peritoneal fluid culture positive for staph epi. On today's evaluation that is 12/23/2023, the patient continues to be afebrile, the patient is on room air and breathing comfortably, the Pt denies having any chest pain or cough, the patient denies having any abdominal pain no vomiting or any diarrhea has been reported by the nursing staff. Patient did have creatinine of 8.22 vancomycin random is 16.3 Objective - Vital Signs Vital signs: Vital Signs Temp 98.7 F 12/23/23 14:30 Pulse 51 L 12/23/23 14:30 Resp 18 12/23/23 14:30 BP 111/60 12/23/23 14:30 Pulse Ox 94 L 12/23/23 07:34 FiO2 Intake & Output 12/22/23 12/23/23 12/23/23 18:59 06:59 18:59 Intake Total 400 180 500 Output Total 4400 4500 Balance -4000 180 -4000 Weight 88.451 kg Intake: Intake, IV Titration 180 Amount IV Fluid Continuation 1, 80 000 ml @ 0 mls/hr IV .STK -[facility] Rx#:[id number] Piperacillin-Tazobactam 3 100 .375 gm In Sodium Chloride 0.9% 100 ml @ 25 mls/hr IVPB Q12HR [facility] Rx #:[id number] Hemodialysis 400 500 Output: Hemodialysis 2400 2500 Hemodialysis Net Amount 1999 1999 Other: Voiding Method Diaper Diaper # Voids 0 # Bowel Movements 1 - Exam GENERAL DESCRIPTION: An elderly male lying in bed in no distress RESPIRATORY SYSTEM: Unlabored breathing , decreased breath sounds at bases HEART: S1 S2 regular rate and rhythm , ABDOMEN: Soft , no tenderness EXTREMITIES: No edema feet - Labs CBC & Chem 7: 12/21/23 04:09 12/23/23 03:23 Labs: Abnormal Lab Results - Last 24 Hours (Table) 12/22/23 12/23/23 Range/Units 21:07 03:23 Sodium 133 L (137-145) mmol/L Carbon Dioxide 21 L (22-30) mmol/L BUN 38 H (9-20) mg/dL Creatinine 8.22 H* (0.66-1.25) mg/dL POC Glucose (mg/dL) 121 H (70-110) mg/dL Calcium 7.8 L (8.4-10.2) mg/dL Microbiology - Last 24 Hours (Table) 12/21/23 01:38 Gram Stain - Preliminary Dialysate Body Fluid Culture - Preliminary 12/16/23 21:54 Blood Culture - Final Blood Assessment and Plan (1) Acute peritonitis Current Visit: Yes Status: Acute Code(s): K65.0 - GENERALIZED (ACUTE) PERITONITIS SNOMED Code(s): 24881808 (2) Leukocytosis Current Visit: No Status: Acute Code(s): D72.829 - ELEVATED WHITE BLOOD CELL COUNT, UNSPECIFIED SNOMED Code(s): 170994442 Plan: 1patient presented to hospital with abdominal pain has been diagnosed with the PD catheter associated peritonitis cultures currently growing staph epi patient may be able to salvage his current PD catheter however plan is for transition to hemodialysis as the patient is going to the long term and cannot receive peritoneal dialysis there if that is the case the PD catheter should be discontinued that will help him complete healing of his current infection. 2patient is status post removal of the peritoneal dialysis catheter currently undergoing dialysis vancomycin random is currently therapeutic to continue pharmacy to dose for 2 weeks on discharge Dictation was produced using [employer] software. please excuse any grammatical, word or spelling errors. Time with Patient: Less than 30
[2023-12-23 16:46] LABS: Glucose,Whole Blood 143 mg/dL (70-110)
[2023-12-23 21:15] LABS: Glucose,Whole Blood 160 mg/dL (70-110)
--- NOTE | 2023-12-24 05:29 | P.PN ---
Subjective Progress Note Date: 12/23/23 This is a pleasant 63 years old male with past medical history of multiple medical problems including diabetes, hypertension, end-stage renal disease on peritoneal dialysis. Patient presents because of abdominal pain, for a few days but he could not specify in the right lower quadrant radiating across his lower abdomen moderate to severe in quality, nonspecific with no relieving or precipitating factors. Patient has good bowel movement as he describes he has no vomiting and could eat hamburger today although there is some loss of appetite. He does not make urine, he denies chest pain. However he was complaining from some dyspnea with no cough. No headache dizziness weakness or numbness He is with no smoking alcohol or illicit drug history He is afebrile, vitals are stable He has evidence of leukocytosis 19K, down to 14K, hemoglobin 10-11 which is close to baseline of 9-10. Liver enzymes not elevated and rest of labs unremarkable Chest x-ray showing possible right lower lobe opacity. CT of the abdomen pelvis without contrast showing mild thickening of the colon suspicious for colitis Blood cultures requested as well as peritoneal fluid catheter as well as suspicion of some infection around the area Patient currently started on Zosyn and IV vancomycin 12/18/2023 Patient is seen and evaluated in follow-up this morning is lethargic although arousable although fatigues easily. Patient is scheduled to undergo dialysis today with nephrology following. Patient's blood sugars have been elevated and uncontrolled and will initiate sliding scale and adjust insulins and add long-ac ting if needed. Patient is afebrile and continues with some shortness of breath and is maintained on oxygen, poor historian and unknown if patient wears oxygen at home. Patient extremely weak as well and will have PT/OT therapy evaluate the patient. Patient continues on IV antibiotics at this time with cultures pending 12/19/2023 Patient is seen in follow-up today extremely lethargic although is arousable slightly more awake to converse today although fatigues easily. Patient is receiving peritoneal dialysis with nephrology following closely. Patient to be evaluated by PT/OT therapy and likely will need rehab. Patient does have a fistula noted in the left upper extremity and will need to possibly transition to hemodialysis while at rehab. Case management is following working on dis charge planning. Patient continues on IV antibiotics and cultures previously showing staph epi, likely contaminant with repeat cultures being ordered for a.m. Patient is maintained on antibiotics as well for colitis with general surgery following with no plans of surgical intervention at this time. Patient reports he does not like the food here and is not eating much. Afebrile and will await repeat cultures. 12/20/2023 Patient is seen in follow-up today a little more awake although fatigues easily during conversation. Currently undergoing peritoneal dialysis and maintained on antibiotics and infectious disease has been consulted. Procalcitonin was noted to be 10 and concerns of peritonitis. Plan is to remove abdominal dialysis catheter and vascular surgery was consulted for permacath placement. Patient does have a left arm fistula although was thought to be nonfunctioning at this time. Patient will need PT/OT therapy updated notes with plans on going to ECF on discharge. Repeat cultures thus far are negative. 12/21/2023 Patient is seen and evaluated in follow-up today with mother at bedside. Plans for removing peritoneal dialysis catheter with concerns of peritonitis with cultures positive. Repeat cultures are negative with infectious disease and nephrology following. Vascular surgery was also consulted in the event patient may require permacath placement as patient is weak will be needing ECF on discharge and will be transitioning to hemodialysis as they do not accommodate peritoneal dialysis exchanges at rehab. Patient does have a left fistula noted and reports his initial fistula was nonfunctioning although he had it rerouted approximately 6 months ago and then transition to peritoneal dialysis due to traveling issues and compliance with treatment plan. Will evaluate AV fistula and plan for hemodialysis in the a.m. per nephrology. Vascular surgery is on standby in the event patient fistula is nonfunctioning and requires a permacath placement. Patient is afebrile with no reports of chest pain or shortness of breath. Patient is agitated about continuing to be hospitalized although is agreeable to rehab on discharge. Mother at the bedside and is agreeable with this plan as well. Will follow-up with case management regarding discharge kala nning possibly early next week. 12/22/2023 Patient seen in follow-up today currently undergoing hemodialysis on left upper extremity fistula. Functioning and tolerating thus far. Patient will continue on hemodialysis and is maintained on antibiotics with infectious disease following we will continue on antibiotics with dialysis for 2-week course on discharge. Plan is for patient to go to ECF as patient is significantly weak and would benefit from aggressive continued strength and mobility. Patient's peritoneal dialysis catheter was removed with general surgery and will continue on hemodialysis for now. 12/23/2023 Patient is seen in follow-up today currently undergoing dialysis of the left arm fistula with no acute issues noted. Nephrology and infectious disease following and patient is maintained on IV antibiotics. Patient will continue on antibiotic course on discharge with dialysis sessions for 2 weeks. Patient is afebrile denies chest pain or shortness of breath. Will follow-up with updated PT/OT therapy notes on Monday as well as case management to discuss discharge pl anning to ECF. Patient has transitioned to hemodialysis for now and peritoneal dialysis catheter has been removed. Review of systems: Constitutional: reports of fatigue, no fever, or chills Cardiovascular: No reports of chest pain or palpitations Respiratory: reports of occasional shortness of breath GI: No reports of nausea, vomiting, or diarrhea, reports not much of an appetite and does not care for the food here : No reports of dysuria or retention, does not make urine Neurovascular: reports of weakness All medications have been reviewed Physical exam: GENERAL: The patient is awake this morning, alert and oriented x2. Well developed, well nourished. Obese HEENT: Pupils are round and equally reacting to light. EOMI. No scleral icterus. No conjunctival pallor. Normocephalic, atraumatic. No pharyngeal erythema. No thyromegaly. CARDIOVASCULAR: S1 and S2 muffled PULMONARY: Diminished breath sounds bilaterally no wheezing , faint crackles noted. ABDOMEN: Soft, right lower quadrant tenderness, nondistended, normoactive bowel sounds. No palpable organomegaly. MUSCULOSKELETAL: No joint swelling or deformity. EXTREMITIES: No cyanosis, clubbing, or pedal edema. NEUROLOGICAL: Gross neurological examination did not reveal any focal deficits. Diffusely weak SKIN: No rashes. no petechiae. Assessment: Abdominal pain secondary to colitis Right lower lobe pneumonia End-stage renal disease on peritoneal dialysis, has been transitioned to hemodialysis and it is noted patient has a left upper extremity fistula that he reports was rerouted in [place] approximately 6 months ago prior to transitioning to peritoneal dialysis. Positive thrill noted on exam. peritonitis secondary to peritoneal dialysis, cultures showing oxacillin resistant Staph epidermidis. Repeat cultures are negative thus far. Peritoneal catheter was removed by general surgery 12/21/2023 Diabetes mellitus, type II, uncontrolled with hyperglycemia Bilateral leg edema Generalized weakness with gait dysfunction Hypertension History of GERD History of bleeding ulcer Obesity with a BMI 30.5 GI prophylaxis DVT prophylaxis Full code Plan: Continue with IV vancomycin and Zosyn. infectious disease following. Patient had general surgery services remove the peritoneal dialysis catheter per infectious disease and nephrology. Patient will likely continue with antibiotics for 2-week course with dialysis sessions on discharge. Continue with pain management although recommend to hold narcotics and sedative agents as patient is lethargic. Lyrica will be made as scheduled not as needed Wean FiO2 as tolerated. Encouraged patient to sit up out of the bed more often Recommend PT/OT therapy evaluation as patient will need rehab. Awaiting updated PT/OT therapy notes. Case management is following and has been transitioned to hemodialysis while at rehab as there are no ECF's available that do peritoneal dialysis. Patient will also require insurance authorization. Will follow-up with consultations regarding discharge planning. Plan is to continue hemodialysis and will continue with antibiotics with dialysis for 2- week course per ID recommendations. Possible discharge planning Monday or Monday Prognosis is guarded The impression and plan of care has been dictated by Liset Shipman, Nurse Practitioner as directed. Dr. Varsha MD I have performed a history and examination and MDM of this patient, discussed the same with the dictator, and agree with the dictator's assessment and plan as written ,documented as a scribe. Based on total visit time, I have performed more than 50% of the visit. Objective - Vital Signs Vital signs: Vital Signs Temp 98.7 F 12/23/23 02:00 Pulse 55 L 12/23/23 07:34 Resp 16 12/23/23 07:34 BP 115/54 12/23/23 07:34 Pulse Ox 94 L 12/23/23 07:34 FiO2 Intake & Output 12/22/23 12/23/23 12/23/23 18:59 06:59 18:59 Intake Total 400 180 Output Total 4400 Balance -4000 180 Weight 88.451 kg Intake: Intake, IV Titration 180 Amount IV Fluid Continuation 1, 80 000 ml @ 0 mls/hr IV .STK -[facility] Rx#:[id number] Piperacillin-Tazobactam 3 100 .375 gm In Sodium Chloride 0.9% 100 ml @ 25 mls/hr IVPB Q12HR [facility] Rx #:[id number] Hemodialysis 400 Output: Hemodialysis 2400 Hemodialysis Net Amount 1999 Other: Voiding Method Diaper Diaper # Voids 0 # Bowel Movements 1 - Labs CBC & Chem 7: 12/21/23 04:09 12/23/23 03:23 Labs: Abnormal Lab Results - Last 24 Hours (Table) 12/22/23 12/23/23 Range/Units 21:07 03:23 Sodium 133 L (137-145) mmol/L Carbon Dioxide 21 L (22-30) mmol/L BUN 38 H (9-20) mg/dL Creatinine 8.22 H* (0.66-1.25) mg/dL POC Glucose (mg/dL) 121 H (70-110) mg/dL Calcium 7.8 L (8.4-10.2) mg/dL Microbiology - Last 24 Hours (Table) 12/21/23 01:38 Gram Stain - Preliminary Dialysate Body Fluid Culture - Preliminary 12/16/23 21:54 Blood Culture - Final Blood 12/19/23 06:00 Gram Stain - Preliminary Peritoneal Fluid Body Fluid Culture - Preliminary
[2023-12-24 06:53] LABS: Glucose,Whole Blood 139 mg/dL (70-110)
[2023-12-24 07:01] LABS: African American GFR (CKD) 8 (>60 ml/min/1.73 sqM); Anion Gap 11 mmol/L; Blood Urea Nitrogen 32 mg/dL (9-20); Calcium 8.1 mg/dL (8.4-10.2); Carbon Dioxide 24 mmol/L (22-30); Chloride 99 mmol/L (98-107); Glucose 135 mg/dL (74-99); Non-African American GFR(CKD) 7 (>60 ml/min/1.73 sqM); Potassium 3.6 mmol/L (3.5-5.1); Sodium 134 mmol/L (137-145)
[2023-12-24 07:07] LABS: Vancomycin,Random 13.4 ug/mL
[2023-12-24] MEDS: VANCOMYCIN 1,250 MG in SODIUM CHLORIDE 0.9% 250 ML IVPB ONE (09:25)
--- NOTE | 2023-12-24 10:15 | P.PN ---
Subjective Patient is seen in follow-up for end-stage renal disease. He was on peritoneal dialysis. Dialysate culture positive for oxacillin resistant staph epi. Cell count noted to be high at 3382 dated December 17, 2023 and improved significantly post antibiotics. Resting in bed. Will need to go to rehab upon discharge. PD catheter removed December 21, 2023. Started hemodialysis December 22, 2023. No problems with dialysis yesterday. Vital signs are stable. General: No acute distress. HEENT: Head exam is unremarkable. LUNGS: No audible rhonchi or wheezes. HEART: Rate and Rhythm are regular. ABDOMEN: Generalized tenderness. EXTREMITITES: Trace edema. Objective - Vital Signs Vital signs: Vital Signs Temp 97.2 F L 12/24/23 07:02 Pulse 55 L 12/24/23 07:02 Resp 17 12/24/23 07:02 BP 131/64 12/24/23 07:02 Pulse Ox 93 L 12/24/23 07:02 FiO2 Intake & Output 12/23/23 12/24/23 12/24/23 18:59 06:59 18:59 Intake Total 500 Output Total 4500 Balance -4000 Intake: Hemodialysis 500 Output: Hemodialysis 2500 Hemodialysis Net Amount 2000 Other: Voiding Method Diaper Diaper Diaper - Labs CBC & Chem 7: 12/21/23 04:09 12/24/23 06:27 Labs: Abnormal Lab Results - Last 24 Hours (Table) 12/23/23 12/23/23 12/24/23 Range/Units 16:45 21:13 06:27 Sodium 134 L (137-145) mmol/L BUN 32 H (9-20) mg/dL Creatinine 7.29 H* (0.66-1.25) mg/dL Glucose 135 H (74-99) mg/dL POC Glucose (mg/dL) 143 H 160 H (70-110) mg/dL Calcium 8.1 L (8.4-10.2) mg/dL 12/24/23 Range/Units 06:51 Sodium (137-145) mmol/L BUN (9-20) mg/dL Creatinine (0.66-1.25) mg/dL Glucose (74-99) mg/dL POC Glucose (mg/dL) 139 H (70-110) mg/dL Calcium (8.4-10.2) mg/dL Microbiology - Last 24 Hours (Table) 12/19/23 06:00 Gram Stain - Preliminary Peritoneal Fluid Body Fluid Culture - Preliminary Coagulase Negative Staph 12/21/23 01:38 Gram Stain - Preliminary Dialysate Body Fluid Culture - Preliminary Assessment and Plan Plan: Assessment: 1. End-stage renal disease maintained on peritoneal dialysis. 2. PD associated peritonitis with dialysate culture positive for staph epi and cell count 3382 with 100% PMNs dated December 17, 2023. Repeat cell count 41 and PMNs 81% dated December 19, 2023. Cell count 8 dated December 21, 2023. 3. 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 4. Hypertension with chronic kidney disease. Controlled. 5. Colitis maintained on IV antibiotics. Surgery and ID following. 6. Volume overload. Improved. Plan: 1 g intraperitoneal vancomycin given December 18, 2023. PD catheter removed December 21, 2023. Hold hydralazine for systolic blood pressure less than 120. Monitor vancomycin levels. Dose to be adjusted for renal function. Patient will be going to subacute rehab upon discharge. [facility] Has left upper extremity AV fistula. Currently seen while undergoing hemodialysis. Patient will be maintained on TTS schedule outpatient.
--- NOTE | 2023-12-24 11:17 | P.PN ---
Subjective Progress Note Date: 12/24/23 Principal diagnosis: Peritonitis Patient doing well today. Remains mildly confused. Denies abdominal pain. Tolerating diet. Objective - Vital Signs Vital signs: Vital Signs Temp 97.2 F L 12/24/23 07:02 Pulse 55 L 12/24/23 07:02 Resp 17 12/24/23 07:02 BP 131/64 12/24/23 07:02 Pulse Ox 93 L 12/24/23 07:02 FiO2 Intake & Output 12/23/23 12/24/23 12/24/23 18:59 06:59 18:59 Intake Total 500 Output Total 4500 Balance -4000 Intake: Hemodialysis 500 Output: Hemodialysis 2500 Hemodialysis Net Amount 2000 Other: Voiding Method Diaper Diaper Diaper - Exam Abdomen: Soft, dressing removed, incision clean and dry, nontender - Labs CBC & Chem 7: 12/21/23 04:09 12/24/23 06:27 Labs: Abnormal Lab Results - Last 24 Hours (Table) 12/23/23 12/23/23 12/24/23 Range/Units 16:45 21:13 06:27 Sodium 134 L (137-145) mmol/L BUN 32 H (9-20) mg/dL Creatinine 7.29 H* (0.66-1.25) mg/dL Glucose 135 H (74-99) mg/dL POC Glucose (mg/dL) 143 H 160 H (70-110) mg/dL Calcium 8.1 L (8.4-10.2) mg/dL 12/24/23 Range/Units 06:51 Sodium (137-145) mmol/L BUN (9-20) mg/dL Creatinine (0.66-1.25) mg/dL Glucose (74-99) mg/dL POC Glucose (mg/dL) 139 H (70-110) mg/dL Calcium (8.4-10.2) mg/dL Microbiology - Last 24 Hours (Table) 12/19/23 06:00 Gram Stain - Preliminary Peritoneal Fluid Body Fluid Culture - Preliminary Coagulase Negative Staph 12/21/23 01:38 Gram Stain - Preliminary Dialysate Body Fluid Culture - Preliminary Assessment and Plan (1) Acute peritonitis Narrative/Plan: Patient doing gradually better. May leave dressing off for now. Continue diet. Will sign off. Please reconsult if needed. Current Visit: Yes Status: Acute Code(s): K65.0 - GENERALIZED (ACUTE) PER GRUPO SNOMED Code(s): 25686178
[2023-12-24 11:37] LABS: Glucose,Whole Blood 158 mg/dL (70-110)
--- NOTE | 2023-12-24 15:32 | P.PN ---
Subjective Progress Note Date: 12/24/23 Principal diagnosis: Reason for follow-up is PD catheter associated peritonitis Patient is a 63-year-old male with a past medical history of again for diabetes mellitus that includes hypertension pneumonia end-stage renal disease currently on peritoneal dialysis patient has been brought into the hospital for evaluation of abdominal pain in this patient has been diagnosed with a PD catheter associated peritonitis with a peritoneal fluid culture positive for staph epi. On today's evaluation that is 12/24/2023, Patient is afebrile patient is currently on room air and denies having any shortness of breath, the patient denies any chest pain or cough, the patient denies any nausea vomiting abdominal pain is currently controlled. Patient did have BUN of 32 creatinine 7.29 repeat dialysis fluid culture negative Objective - Vital Signs Vital signs: Vital Signs Temp 97.2 F L 12/24/23 07:02 Pulse 56 L 12/24/23 14:05 Resp 19 12/24/23 14:05 BP 122/71 12/24/23 14:05 Pulse Ox 91 L 12/24/23 14:05 FiO2 Intake & Output 12/23/23 12/24/23 12/24/23 18:59 06:59 18:59 Intake Total 500 Output Total 4500 1710 Balance -4000 -1710 Intake: Hemodialysis 500 Output: Urine 1710 Hemodialysis 2500 Hemodialysis Net Amount 2000 Other: Voiding Method Diaper Diaper Diaper - Exam GENERAL DESCRIPTION: An elderly male lying in bed in no distress RESPIRATORY SYSTEM: Unlabored breathing , decreased breath sounds at bases HEART: S1 S2 regular rate and rhythm , ABDOMEN: Soft , no tenderness EXTREMITIES: No edema feet - Labs CBC & Chem 7: 12/21/23 04:09 12/24/23 06:27 Labs: Abnormal Lab Results - Last 24 Hours (Table) 12/23/23 12/23/23 12/24/23 Range/Units 16:45 21:13 06:27 Sodium 134 L (137-145) mmol/L BUN 32 H (9-20) mg/dL Creatinine 7.29 H* (0.66-1.25) mg/dL Glucose 135 H (74-99) mg/dL POC Glucose (mg/dL) 143 H 160 H (70-110) mg/dL Calcium 8.1 L (8.4-10.2) mg/dL 12/24/23 12/24/23 Range/Units 06:51 11:35 Sodium (137-145) mmol/L BUN (9-20) mg/dL Creatinine (0.66-1.25) mg/dL Glucose (74-99) mg/dL POC Glucose (mg/dL) 139 H 158 H (70-110) mg/dL Calcium (8.4-10.2) mg/dL Microbiology - Last 24 Hours (Table) 12/19/23 06:00 Gram Stain - Preliminary Peritoneal Fluid Body Fluid Culture - Preliminary Coagulase Negative Staph 12/21/23 01:38 Gram Stain - Preliminary Dialysate Body Fluid Culture - Preliminary Assessment and Plan (1) Acute peritonitis Current Visit: Yes Status: Acute Code(s): K65.0 - GENERALIZED (ACUTE) PERITONITIS SNOMED Code(s): 36722867 (2) Leukocytosis Current Visit: No Status: Acute Code(s): D72.829 - ELEVATED WHITE BLOOD CELL COUNT, UNSPECIFIED SNOMED Code(s): 966865243 Plan: 1patient presented to hospital with abdominal pain has been diagnosed with the PD catheter associated peritonitis cultures currently growing staph epi patient may be able to salvage his current PD catheter however plan is for transition to hemodialysis as the [facility] and cannot receive [facility] dialysis there if that is the case the PD catheter should be discontinued that will help him complete healing of his current infection. 2patient is status post removal of the peritoneal dialysis catheter and repeat peritoneal fluid culture has been negative 3-plan is for a 2-week course of vancomycin pharmacy to dose through dialysis on discharge Dictation was produced using [employer] dictation software. please excuse any grammatical, word or spelling errors. Time with Patient: Less than 30
[2023-12-24 16:47] LABS: Glucose,Whole Blood 164 mg/dL (70-110)
[2023-12-24 20:28] LABS: Glucose,Whole Blood 148 mg/dL (70-110)
[2023-12-25] MEDS ORDERED: ZINC OXIDE PASTE (Z-GUARD) 1 APPLIC TOPICAL PRN (00:43)
[2023-12-25 02:57] VITALS: TEMP 97.9
--- NOTE | 2023-12-25 05:32 | P.PN ---
Subjective Progress Note Date: 12/24/23 This is a pleasant 63 years old male with past medical history of multiple medical problems including diabetes, hypertension, end-stage renal disease on peritoneal dialysis. Patient presents because of abdominal pain, for a few days but he could not specify in the right lower quadrant radiating across his lower abdomen moderate to severe in quality, nonspecific with no relieving or precipitating factors. Patient has good bowel movement as he describes he has no vomiting and could eat hamburger today although there is some loss of appetite. He does not make urine, he denies chest pain. However he was complaining from some dyspnea with no cough. No headache dizziness weakness or numbness He is with no smoking alcohol or illicit drug history He is afebrile, vitals are stable He has evidence of leukocytosis 19K, down to 14K, hemoglobin 10-11 which is close to baseline of 9-10. Liver enzymes not elevated and rest of labs unremarkable Chest x-ray showing possible right lower lobe opacity. CT of the abdomen pelvis without contrast showing mild thickening of the colon suspicious for colitis Blood cultures requested as well as peritoneal fluid catheter as well as suspicion of some infection around the area Patient currently started on Zosyn and IV vancomycin 12/18/2023 Patient is seen and evaluated in follow-up this morning is lethargic although arousable although fatigues easily. Patient is scheduled to undergo dialysis today with nephrology following. Patient's blood sugars have been elevated and uncontrolled and will initiate sliding scale and adjust insulins and add long-ac ting if needed. Patient is afebrile and continues with some shortness of breath and is maintained on oxygen, poor historian and unknown if patient wears oxygen at home. Patient extremely weak as well and will have PT/OT therapy evaluate the patient. Patient continues on IV antibiotics at this time with cultures pending 12/19/2023 Patient is seen in follow-up today extremely lethargic although is arousable slightly more awake to converse today although fatigues easily. Patient is receiving peritoneal dialysis with nephrology following closely. Patient to be evaluated by PT/OT therapy and likely will need rehab. Patient does have a fistula noted in the left upper extremity and will need to possibly transition to hemodialysis while at rehab. Case management is following working on dis charge planning. Patient continues on IV antibiotics and cultures previously showing staph epi, likely contaminant with repeat cultures being ordered for a.m. Patient is maintained on antibiotics as well for colitis with general surgery following with no plans of surgical intervention at this time. Patient reports he does not like the food here and is not eating much. Afebrile and will await repeat cultures. 12/20/2023 Patient is seen in follow-up today a little more awake although fatigues easily during conversation. Currently undergoing peritoneal dialysis and maintained on antibiotics and infectious disease has been consulted. Procalcitonin was noted to be 10 and concerns of peritonitis. Plan is to remove abdominal dialysis catheter and vascular surgery was consulted for permacath placement. Patient does have a left arm fistula although was thought to be nonfunctioning at this time. Patient will need PT/OT therapy updated notes with plans on going to ECF on discharge. Repeat cultures thus far are negative. 12/21/2023 Patient is seen and evaluated in follow-up today with mother at bedside. Plans for removing peritoneal dialysis catheter with concerns of peritonitis with cultures positive. Repeat cultures are negative with infectious disease and nephrology following. Vascular surgery was also consulted in the event patient may require permacath placement as patient is weak will be needing ECF on discharge and will be transitioning to hemodialysis as they do not accommodate peritoneal dialysis exchanges at rehab. Patient does have a left fistula noted and reports his initial fistula was nonfunctioning although he had it rerouted approximately 6 months ago and then transition to peritoneal dialysis due to traveling issues and compliance with treatment plan. Will evaluate AV fistula and plan for hemodialysis in the a.m. per nephrology. Vascular surgery is on standby in the event patient fistula is nonfunctioning and requires a permacath placement. Patient is afebrile with no reports of chest pain or shortness of breath. Patient is agitated about continuing to be hospitalized although is agreeable to rehab on discharge. Mother at the bedside and is agreeable with this plan as well. Will follow-up with case management regarding discharge kala nning possibly early next week. 12/22/2023 Patient seen in follow-up today currently undergoing hemodialysis on left upper extremity fistula. Functioning and tolerating thus far. Patient will continue on hemodialysis and is maintained on antibiotics with infectious disease following we will continue on antibiotics with dialysis for 2-week course on discharge. Plan is for patient to go to ECF as patient is significantly weak and would benefit from aggressive continued strength and mobility. Patient's peritoneal dialysis catheter was removed with general surgery and will continue on hemodialysis for now. 12/23/2023 Patient is seen in follow-up today currently undergoing dialysis of the left arm fistula with no acute issues noted. Nephrology and infectious disease following and patient is maintained on IV antibiotics. Patient will continue on antibiotic course on discharge with dialysis sessions for 2 weeks. Patient is afebrile denies chest pain or shortness of breath. Will follow-up with updated PT/OT therapy notes on Monday as well as case management to discuss discharge pl anning to ECF. Patient has transitioned to hemodialysis for now and peritoneal dialysis catheter has been removed. 12/24/2023 Patient is seen and evaluated in follow-up today with no acute overnight issues noted. Patient being followed by nephrology and tolerating hemodialysis thus far. Plan will be for patient to go to ECF with continued hemodialysis for strength and mobility. Patient will continue on antibiotics through dialysis for 2-week course per ID recommendations. Will await updated PT/OT therapy notes and discuss further with case management regarding discharge planning and if patient requires insurance authorization. Review of systems: Constitutional: reports of fatigue, no fever, or chills Cardiovascular: No reports of chest pain or palpitations Respiratory: reports of occasional shortness of breath GI: No reports of nausea, vomiting, or diarrhea, reports not much of an appetite and does not care for the food here : No reports of dysuria or retention, does not make urine Neurovascular: reports of weakness All medications have been reviewed Physical exam: GENERAL: The patient is awake this morning, alert and oriented x2. Well developed, well nourished. Obese HEENT: Pupils are round and equally reacting to light. EOMI. No scleral icterus. No conjunctival pallor. Normocephalic, atraumatic. No pharyngeal erythema. No thyromegaly. CARDIOVASCULAR: S1 and S2 muffled PULMONARY: Diminished breath sounds bilaterally no wheezing , faint crackles noted. ABDOMEN: Soft, right lower quadrant tenderness, nondistended, normoactive bowel sounds. No palpable organomegaly. MUSCULOSKELETAL: No joint swelling or deformity. EXTREMITIES: No cyanosis, clubbing, or pedal edema. NEUROLOGICAL: Gross neurological examination did not reveal any focal deficits. Diffusely weak SKIN: No rashes. no petechiae. Assessment: Abdominal pain secondary to colitis Right lower lobe pneumonia End-stage renal disease on peritoneal dialysis, has been transitioned to hemodi alysis and it is noted patient has a left upper extremity fistula that he reports was rerouted in [place] approximately 6 months ago prior to transitioning to peritoneal dialysis. Positive thrill noted on exam. peritonitis secondary to peritoneal dialysis, cultures showing oxacillin resistant Staph epidermidis. Repeat cultures are negative thus far. Peritoneal catheter was removed by general surgery 12/21/2023 Diabetes mellitus, type II, uncontrolled with hyperglycemia Bilateral leg edema Generalized weakness with gait dysfunction Hypertension History of GERD History of bleeding ulcer Obesity with a BMI 30.5 GI prophylaxis DVT prophylaxis Full code Plan: Continue with IV vancomycin and Zosyn. infectious disease following. Patient had general surgery services remove the peritoneal dialysis catheter per infectious disease and nephrology. Patient will likely continue with antibiotics for 2-week course with dialysis sessions on discharge. Continue with pain management although recommend to hold narcotics and sedative agents as patient is lethargic. Lyrica will be made as scheduled not as needed Wean FiO2 as tolerated. Encouraged patient to sit up out of the bed more often Recommend PT/OT therapy evaluation as patient will need rehab. Awaiting updated PT/OT therapy notes on Monday. Case management is following and has been transitioned to hemodialysis while at rehab as there are no ECF's available that do peritoneal dialysis. Patient will also require insurance authorization. Will follow-up with consultations regarding discharge planning. Plan is to continue hemodialysis and will continue with antibiotics with dialysis for 2- week course per ID recommendations. Possible discharge planning Monday or Monday Prognosis is guarded The impression and plan of care has been dictated by Liset Shipman, Nurse Practitioner as directed. Dr. Varsha MD I have performed a history and examination and MDM of this patient, discussed the same with the dictator, and agree with the dictator's assessment and plan as written ,documented as a scribe. Based on total visit time, I have performed more than 50% of the visit. Objective - Vital Signs Vital signs: Vital Signs Temp 97.9 F 12/25/23 01:40 Pulse 55 L 12/25/23 01:40 Resp 18 12/25/23 01:40 BP 119/57 12/25/23 01:40 Pulse Ox 95 12/25/23 01:40 FiO2 Intake & Output 12/24/23 12/24/23 12/25/23 06:59 18:59 06:59 Output Total 1710 Balance -1710 Output: Urine 1710 Other: Voiding Method Diaper Diaper Toilet # Bowel Movements 2 - Labs CBC & Chem 7: 12/21/23 04:09 12/24/23 06:27 Labs: Abnormal Lab Results - Last 24 Hours (Table) 12/24/23 12/24/23 12/24/23 Range/Units 06:27 06:51 11:35 Sodium 134 L (137-145) mmol/L BUN 32 H (9-20) mg/dL Creatinine 7.29 H* (0.66-1.25) mg/dL Glucose 135 H (74-99) mg/dL POC Glucose (mg/dL) 139 H 158 H (70-110) mg/dL Calcium 8.1 L (8.4-10.2) mg/dL 12/24/23 12/24/23 Range/Units 16:46 20:26 Sodium (137-145) mmol/L BUN (9-20) mg/dL Creatinine (0.66-1.25) mg/dL Glucose (74-99) mg/dL POC Glucose (mg/dL) 164 H 148 H (70-110) mg/dL Calcium (8.4-10.2) mg/dL Microbiology - Last 24 Hours (Table) 12/19/23 06:00 Gram Stain - Preliminary Peritoneal Fluid Body Fluid Culture - Preliminary Coagulase Negative Staph 12/21/23 01:38 Gram Stain - Preliminary Dialysate Body Fluid Culture - Preliminary
[2023-12-25 06:16] LABS: Glucose,Whole Blood 130 mg/dL (70-110)
[2023-12-25 07:34] VITALS: BP 118/62; PULSE 54; RESP 16
[2023-12-25 12:14] LABS: Glucose,Whole Blood 140 mg/dL (70-110)
--- NOTE | 2023-12-25 12:28 | P.DS ---
Providers Date of admission: 12/16/23 21:39 Expected date of discharge: 12/25/23 Attending physician: Perla Mitchell Consults: 12/16/23 20:21 Consult Physician Routine Consulting Provider: Angle Yates Consult Reason/Comments: esrd on peritoneal dialysis Do you want consulting provider notified?: Yes 12/20/23 10:08 Consult Physician Urgent Consulting Provider: Jeffy Berumen Consult Reason/Comments: elev procal, ? peritonitis? colitis Do you want consulting provider notified?: Yes Primary care physician: Aleksandr Monsalve Hospital Course: Final diagnosis Abdominal pain secondary to colitis Right lower lobe pneumonia, thought initially on exam although most likely volume overload secondary to end-stage renal disease End-stage renal disease on peritoneal dialysis, has been transitioned to hemodialysis and it is noted patient has a left upper extremity fistula that he reports was rerouted in [place] approximately 6 months ago prior to transitioning to peritoneal dialysis. Positive thrill noted on exam. peritonitis secondary to peritoneal dialysis, cultures showing oxacillin resistant Staph epidermidis. Repeat cultures are negative thus far. Peritoneal catheter was removed by general surgery 12/21/2023 Diabetes mellitus, type II, uncontrolled with hyperglycemia Bilateral leg edema Generalized weakness with gait dysfunction Hypertension History of GERD History of bleeding ulcer Obesity with a BMI 30.5 GI prophylaxis DVT prophylaxis Full code Discharge disposition Patient is being discharged in a stable condition with guarded prognosis to [facility]. Patient will follow-up with Dr. Monsalve in the outpatient setting upon discharge. Patient is to continue with hemodialysis as scheduled on Monday//Monday. Patient will receive vancomycin with dialysis for a 2-week course per ID recommendations. Patient is to follow-up with nephrology outpatient in the outpatient setting. Total time taken is greater than 35 minutes. Hospital course This is a 63-year-old male who was recently admitted with abdominal pain with concerns of colitis and thought to be right lower lobe pneumonia with an elev ated procalcitonin and white count. More concern for peritonitis as patient does peritoneal dialysis and cultures were showing oxacillin resistant staph and was started on vancomycin with exchanges. Patient continued on peritoneal dialysis although significantly weak evaluated by physical therapy recommending rehab and there are no accepting facilities of rehab that accommodate peritoneal dialysis. Patient has transition to hemodialysis and has a functioning fistula on the left that was recently rerouted and functioning with a positive thrill somewhere in [place] approximately 6 months ago per patient and family. Patient had been on peritoneal dialysis although with further discussion of infectious disease and concerns of peritonitis, the peritoneal dialysis catheter was removed. Patient will continue on vancomycin with dialysis for 2-week course and will continue hemodialysis for now. Patient has been accepted at [facility] and will be discharged today. Initiate dialysis in the outpatient setting starting Monday at 11 AM. Patient has been cleared by consultations. Please refer to consultation notes for further HPI. Currently no reports of chest pain, shortness of breath, or palpitations. Patient is afebrile. No reports of nausea or vomiting and patient is tolerating diet. Patient will be going to ECF today. Guarded prognosis and high risk for readmissions given patient's noncompliance and significant comorbidities. Physical exam: Gen: This is a 63-year-old male who is awake, alert and oriented x 3, well- developed, elderly appearing, obese HEENT: Head is atraumatic, normocephalic. Pupils equal, round. Sclerae is anicteric. NECK: Supple. No JVD. No lymphadenopathy. No thyromegaly. LUNGS: Diminished breath sounds bilaterally otherwise clear to auscultation. No wheezes or rhonchi. No intercostal retractions. HEART: Regular rate and rhythm. No murmur. ABDOMEN: Soft. Bowel sounds are present. No masses. No tenderness. EXTREMITIES: No pedal edema. No calf tenderness. NEUROLOGICAL: Patient is awake, alert and oriented x3. Cranial nerves 2 through 12 are grossly intact. Diffusely weak Please refer to medication reconciliation sheet for a list of medications. The impression and plan of care has been dictated by Liset Shipman, Nurse Practitioner as directed. Dr. Varsha MD I have performed a history and examination and MDM of this patient, discussed the same with the dictator, and agree with the dictator's assessment and plan as written ,documented as a scribe. Based on total visit time, I have performed more than 50% of the visit. Patient Condition at Discharge: Stable Plan - Discharge Summary Discharge Rx Participant: No New Discharge Prescriptions: New Docusate [Colace] 100 mg PO BID cap INSULIN ASPART (NovoLOG) [NovoLOG (formulary)] 0 unit SQ ACHS each traMADol HCl [Ultram] 50 mg PO BID PRN #4 tab PRN Reason: Pain Continue calcitrioL [Rocaltrol] 0.25 mcg PO MOWEFR Vit B Complx C/Folic Acid/Zinc [Renaplex Tablet] 1 tab PO DAILY carvediloL [Coreg] 6.25 mg PO BID Sucroferric Oxyhydroxide [Velphoro] 1,500 mg PO TID-W/MEALS Torsemide [Soaanz] 40 mg PO DAILY Pregabalin [Lyrica] 75 mg PO BID PRN #4 cap PRN Reason: Pain hydrALAZINE HCL [Apresoline] 100 mg PO TID Loratadine [Claritin] 10 mg PO DAILY Cinacalcet [Sensipar] 30 mg PO DAILY Sodium Bicarbonate Tab 650 mg PO DAILY Sevelamer [Renvela] 1,600 mg PO BID Discontinued Losartan [Cozaar] 50 mg PO DAILY Discharge Medication List Cinacalcet [Sensipar] 30 mg PO DAILY 12/16/23 [History] Loratadine [Claritin] 10 mg PO DAILY 12/16/23 [History] Sevelamer [Renvela] 1,600 mg PO BID 12/16/23 [History] Sodium Bicarbonate Tab 650 mg PO DAILY 12/16/23 [History] Sucroferric Oxyhydroxide [Velphoro] 1,500 mg PO TID-W/MEALS 12/16/23 [History] Torsemide [Soaanz] 40 mg PO DAILY 12/16/23 [History] Vit B Complx C/Folic Acid/Zinc [Renaplex Tablet] 1 tab PO DAILY 12/16/23 [History] calcitrioL [Rocaltrol] 0.25 mcg PO MOWEFR 12/16/23 [History] carvediloL [Coreg] 6.25 mg PO BID 12/16/23 [History] hydrALAZINE HCL [Apresoline] 100 mg PO TID 12/16/23 [History] Docusate [Colace] 100 mg PO BID cap 12/25/23 [Rx] INSULIN ASPART (NovoLOG) [NovoLOG (formulary)] 0 unit SQ ACHS each 12/25/23 [Rx] Pregabalin [Lyrica] 75 mg PO BID PRN #4 cap 12/25/23 [Rx] traMADol HCl [Ultram] 50 mg PO BID PRN #4 tab 12/25/23 [Rx] Follow up Appointment(s)/Referral(s): [facility] [NON-STAFF] - 12/26/23 10:45 am (Hemodialysis Tuesdays, , and Saturdays at 11am. Arrive early to first appointment. ) Aleksandr Monsalve MD [Primary Care Provider] - 1-2 days Activity/Diet/Wound Care/Special Instructions: Vancomycin Pharmacy to Dose for 2 weeks with Hemodialysis. (order faxed to [facility]) Patient is going to [facility] Continue with dialysis Monday//Monday Follow-up nephrology outpatient Follow-up primary care provider outpatient Patient will be continued on antibiotics for 2 weeks course with dialysis per ID recommendations Follow diabetic renal diet Discharge Disposition: TRANSFER TO SNF/ECF
--- NOTE | 2023-12-25 13:08 | P.PN ---
Subjective Patient is seen for follow-up for end-stage renal disease. PD catheter has been removed and patient is currently maintained on hemodialysis. He scheduled for hemodialysis in a.m. Hemodynamically stable. Objective - Vital Signs Vital signs: Vital Signs Temp 97.9 F 12/25/23 01:40 Pulse 54 L 12/25/23 07:40 Resp 16 12/25/23 07:40 BP 118/62 12/25/23 06:41 Pulse Ox 96 12/25/23 06:41 FiO2 Intake & Output 12/24/23 12/25/23 12/25/23 18:59 06:59 18:59 Output Total 1710 Balance -1710 Output: Urine 1710 Other: Voiding Method Diaper Toilet Toilet # Voids 0 # Bowel Movements 2 5 - Exam patient is awake, comfortable, no acute distress. Examination of the heart S1 and S2 Examination of the lungs bilateral breath sounds are heard Abdomen is soft nontender Examination of lower extremities shows no significant edema [employer] exam grossly intact - Labs CBC & Chem 7: 12/21/23 04:09 12/24/23 06:27 Labs: Abnormal Lab Results - Last 24 Hours (Table) 12/24/23 12/24/23 12/25/23 Range/Units 16:46 20:26 06:15 POC Glucose (mg/dL) 164 H 148 H 130 H (70-110) mg/dL 12/25/23 Range/Units 12:12 POC Glucose (mg/dL) 140 H (70-110) mg/dL Microbiology - Last 24 Hours (Table) 12/19/23 06:00 Gram Stain - Final Peritoneal Fluid Body Fluid Culture - Final Staphylococcus epidermidis 12/21/23 01:38 Gram Stain - Final Dialysate Body Fluid Culture - Final Assessment and Plan Assessment: 1. End-stage renal disease maintained on peritoneal dialysis. Patient has been switched to hemodialysis and PD catheter was removed on 12/21/2023 2. PD associated peritonitis with dialysate culture positive for staph epi and cell count 3382 with 100% PMNs dated December 17, 2023. Repeat cell count 41 and PMNs 81% dated December 19, 2023. Cell count 8 dated December 21, 2023. PD catheter removed on 12/21/2023 3. 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 4. Hypertension with chronic kidney disease. Controlled. 5. Colitis maintained on IV antibiotics. Surgery and ID following. 6. Volume overload. Improved. Plan: hemodialysis in a.m.
--- NOTE | 2023-12-25 22:51 | P.PN ---
Subjective Progress Note Date: 12/25/23 Principal diagnosis: Reason for follow-up is PD catheter associated peritonitis Patient is a 63-year-old male with a past medical history of again for diabetes mellitus that includes hypertension pneumonia end-stage renal disease currently on peritoneal dialysis patient has been brought into the hospital for evaluation of abdominal pain in this patient has been diagnosed with a PD catheter associated peritonitis with a peritoneal fluid culture positive for staph epi. On today's evaluation that is 12/25/2023, patient has been afebrile, patient is breathing comfortably and is currently on room air, patient denies having any significant cough no chest pain, patient denies nausea vomiting or diarrhea and abdominal pain is currently controlled. No new lab has been obtained today repeat peritoneal dialysis fluid culture negative Objective - Vital Signs Vital signs: Vital Signs Temp 97.9 F 12/25/23 01:40 Pulse 54 L 12/25/23 07:40 Resp 16 12/25/23 07:40 BP 118/62 12/25/23 06:41 Pulse Ox 96 12/25/23 06:41 FiO2 Intake & Output 12/24/23 12/25/23 12/25/23 18:59 06:59 18:59 Output Total 1710 Balance -1710 Output: Urine 1710 Other: Voiding Method Diaper Toilet Toilet # Voids 0 # Bowel Movements 2 5 - Exam GENERAL DESCRIPTION: An elderly male lying in bed in no distress RESPIRATORY SYSTEM: Unlabored breathing , decreased breath sounds at bases HEART: S1 S2 regular rate and rhythm , ABDOMEN: Soft , no tenderness EXTREMITIES: No edema feet - Labs CBC & Chem 7: 12/21/23 04:09 12/24/23 06:27 Labs: Abnormal Lab Results - Last 24 Hours (Table) 12/24/23 12/24/23 12/25/23 Range/Units 16:46 20:26 06:15 POC Glucose (mg/dL) 164 H 148 H 130 H (70-110) mg/dL 12/25/23 Range/Units 12:12 POC Glucose (mg/dL) 140 H (70-110) mg/dL Microbiology - Last 24 Hours (Table) 12/19/23 06:00 Gram Stain - Final Peritoneal Fluid Body Fluid Culture - Final Staphylococcus epidermidis 12/21/23 01:38 Gram Stain - Final Dialysate Body Fluid Culture - Final Assessment and Plan (1) Acute peritonitis Status: Acute Code(s): K65.0 - GENERALIZED (ACUTE) PERITONITIS SNOMED Code(s): 94890685 (2) Leukocytosis Status: Acute Code(s): D72.829 - ELEVATED WHITE BLOOD CELL COUNT, UNSPECIFIED SNOMED Code(s): 733445898 Plan: 1patient presented to hospital with abdominal pain has been diagnosed with the PD catheter associated peritonitis cultures currently growing staph epi patient may be able to salvage his current PD catheter however plan is for transition to hemodialysis as the patient is going to the assisted and cannot receive peritoneal dialysis there if that is the case the PD catheter should be discontinued that will help him complete healing of his current infection. 2patient is status post removal of the peritoneal dialysis catheter and repeat peritoneal fluid culture has been negative 3-patient is slowly clinically improving prescription for outpatient IV vancomycin through dialysis was provided to the correctional counselor/case manager and a close outpatient follow-up Dictation was produced using [employer] dictation software. please excuse any grammatical, word or spelling errors. Time with Patient: Less than 30
== END 2023-12-25 15:01 | DRG 981 ==
LOC: EC 16:26 → 5NMEDONC 21:39 → 4SSUR 12-17 01:57
PROVIDERS: ADMIT Hospitalist; ATTEND Hospitalist
PROC: 5A1D70Z Performance of Urinary Filtration, Intermittent, Less than 6 Hours Per Day (ICD-10-PCS; 2023-12-20)
PROC: 0WPG33Z Removal of Infusion Device from Peritoneal Cavity, Percutaneous Approach (ICD-10-PCS; principal; 2023-12-21 12:30)
DX: T85.71XA Infection and inflammatory reaction due to peritoneal dialysis catheter, initial encounter (principal); J18.9 Pneumonia, unspecified organism; K65.0 Generalized (acute) peritonitis; N18.6 End stage renal disease; J91.8 Pleural effusion in other conditions classified elsewhere; K56.7 Ileus, unspecified; I12.0 Hypertensive chronic kidney disease with stage 5 chronic kidney disease or end stage renal disease; Z99.2 Dependence on renal dialysis; E11.22 Type 2 diabetes mellitus with diabetic chronic kidney disease; E11.65 Type 2 diabetes mellitus with hyperglycemia; E87.79 Other fluid overload; E66.9 Obesity, unspecified; K52.9 Noninfective gastroenteritis and colitis, unspecified; K21.9 Gastro-esophageal reflux disease without esophagitis; E87.6 Hypokalemia; M89.8X9 Other specified disorders of bone, unspecified site; R60.0 Localized edema; R26.9 Unspecified abnormalities of gait and mobility; Y71.1 Therapeutic (nonsurgical) and rehabilitative cardiovascular devices associated with adverse incidents; Z68.30 Body mass index [BMI] 30.0-30.9, adult; Z91.199 Patient's noncompliance with other medical treatment and regimen due to unspecified reason; Z87.891 Personal history of nicotine dependence; Z79.899 Other long term (current) drug therapy; Z87.11 Personal history of peptic ulcer disease
CPT/HCPCS: 36415; 71046; 74019; 74176; 80048; 80053; 80202; 82140; 82150; 83036; 83605; 83690; 83735; 84132; 84145; 85025; 85610; 85730; 86704; 86706; 87040; 87070; 87077; 87186; 87205; 87340; 87636; 89050; 90935; 93005; 96361; 96365; 96366; 96375; 99285